=== PATIENT | male | born 1950 | race Caucasian/White ===

== ENCOUNTER 2018-10-22 23:52 | Inpatient (IN) ==
--- NOTE | 2018-10-23 00:16 | Emergency Department Note ---
History of Present Illness General Chief complaint: Leg Injury/Pain Stated complaint: LFT LEG WENT NUMB,ANXIETY LEVEL UP,STINT IN LEG Source: patient Mode of arrival: ambulatory Limitations: no limitations History of Present Illness Maximum Pain Intensity: 5 This patient is a 67-year-old male who presents the emergency department complaining of left calf pain and numbness of the foot. The patient states that he had a stent placed in the left leg 1 month ago. He was placed on Plavix for 1 month and finished this 3 to 4 days ago. Patient states that approximately 3 hours prior to arrival, he was walking upstairs and felt a cramp in his left calf. He states that his foot then went numb and he is now having [id number] in the foot. He states that it became cold to touch. He tried to take a hot bath but states this did not help. Patient states he is very anxious regarding his symptoms. He rates his current discomfort a 5/10. Patient is a diabetic. Home Medications Home Medications Medication Instructions Recorded Confirmed Type enalapril maleate 10 mg PO DAILY 09/15/18 10/23/18 History gemfibrozil 600 mg PO BID 09/15/18 10/23/18 History glimepiride 4 mg PO BID 09/15/18 10/23/18 History pioglitazone-metformin 1 tab PO BID 10/23/18 10/23/18 History Allergies Allergy/AdvReac Type Severity Reaction Status Date / Time cat dander Allergy Unknown Verified 10/23/18 02:38 Past Med/Surg History Medical History Diabetes mellitus (Acute) Surgical History History of cataract extraction (Acute) History of eye surgery (Acute) retina History of left knee surgery (Acute) Social History Preferred Language: Chinese Communication Ability: Effective Needleworker Required: No Beliefs That Will Affect Care: None Current Living Situation: Alone Other Information That Helps Us Care for You: No Feels Safe at Home: Yes Safety Concerns: Feels Safe At This Time Smoking Status: Current every day smoker Tobacco Type: cigarettes ; Do You Dip or Chew Tobacco: No ; Second Hand Exposure: No ; Tobacco Cessation Education Requested by Patient: No Hx Alcohol Use: No Hx Substance Use: No Review of Systems A total of 10 systems reviewed and were otherwise negative Physical Exam Vital Signs Vital Signs - 24 hr 10/22/18 23:55 10/23/18 01:27 10/23/18 02:23 Temperature 36.7 C Temperature Source Oral Sepsis Recent Fever Within 48 Hours No Sepsis New/Unexplained Change in Mental Status No Sepsis Action Taken by Nursing No Action Required Pulse Rate 106 H Pulse Rate [Right Finger] 85 86 Respiratory Rate 16 18 18 Respiratory Effort / Characteristics Non-Labored Spontaneous Respiratory Depth Normal Respiratory Pattern Regular Blood Pressure 220/107 H Blood Pressure [Right Arm] 178/95 H 177/99 H Blood Pressure Mean 144 Blood Pressure Mean [Right Arm] 122 125 Blood Pressure Position [Right Arm] Semi-fowlers Pulse Oximetry 97 96 97 Oxygen Delivery Method Room Air Room Air Room Air VITALS: Vitals are noted on the nurse's note and reviewed by myself. GENERAL: This is a 67-year-old male, anxious appearing, well-developed well- nourished. SKIN: The left foot appears pale with poor capillary refill. EYES: Pupils equal round and reactive to light and accommodation. MOUTH: Mucous membranes moist. NECK: Supple without nuchal rigidity. No lymphadenopathy. HEART: Regular rate and rhythm without murmurs gallops or rubs. LUNGS: Clear to auscultation bilaterally without wheezes, rales or rhonchi. ABDOMEN: Soft, nontender to palpation. Well-healed surgical incision to the right groin. EXTREMITIES: Left foot is pale and cold compared to the right foot. No tenderness or edema of the left calf. Dorsalis pedis pulse not palpable. NEURO: Patient was alert and oriented to person place and time. Patient has normal sensation to light and sharp touch proximal to the left ankle. Sensation is decreased over the left foot and patient unable to delineate light from sharp touch. PSYCH: Patient is very anxious. Appropriate affect. Course Reevaluation(s) Reevaluation #1: Ultrasound findings were discussed with the patient. He is agreeable to admission. Consultations Consultation #1: Dr. Ambriz - vascular surgery Dr. Ambriz recommended starting the patient on heparin and keeping him n.p.o. He requested that the hospitalist be consulted for admission. Consultation #2: Dr. Atkins - [facility] hospitalist Administered Medications Heparin Sodium/Dextrose (Heparin Sodium/Dextrose) 25,000 units in 500 mls @ 33 mls/hr IV .[id number] [place]; Protocol Stop: 11/22/18 02:14 Last Admin: 10/23/18 02:19 Dose: 1,650 units/hr, 33 mls/hr Documented by: [id number] Cosigned by: [id number] Discontinued Medications Heparin Sodium (Porcine) (Heparin Iv Bolus) Confirm Administered Dose 10,000 units .ROUTE .STK-MED ONE Stop: 10/23/18 02:16 Last Admin: 10/23/18 02:20 Dose: 5,000 units Documented by: [id number] Cosigned by: [id number] Heparin Sodium/Dextrose () 1 ea IV NOW STA; Protocol Stop: 10/23/18 02:10 Last Admin: 10/23/18 02:21 Dose: Not Given Documented by: [id number] Medical Decision Making Differential Diagnosis Differential diagnosis includes arterial occlusion, stent occlusion, DVT, among others. Medical Records Attestation: I reviewed the patient's medical records. Home Medications Current Medication List: was personally reviewed by me Laboratory Data Attestation: I reviewed the patient's lab results. Result diagrams: 10/23/18 00:19 10/23/18 00:19 Lab Results 10/23/18 10/23/18 10/23/18 Range/Units 00:19 00:19 00:19 WBC 7.50 (4.8-10.8) K/uL RBC 4.47 L (4.7-6.1) M/uL Hgb 13.5 L (14.0-18.0) g/dL Hct 38.3 L (42-52) % MCV 85.7 (80-100) fL MCH 30.2 (25-34) pg MCHC 35.2 (32-36) g/dL RDW Std Deviation 40.4 (36.4-46.3) fL RDW Coeff of Josh 12.9 (11.5-14.5) % Plt Count 155 (130-400) K/uL MPV 10.3 (7.4-10.4) fL Immature Gran % (Auto) 0.4 % Neut % (Auto) 62.8 % Lymph % (Auto) 27.2 % Stoddard % (Auto) 6.3 % Eos % (Auto) 2.9 % Baso % (Auto) 0.4 % Immature Gran # (Auto) 0.03 H (0.00-0.02) K/uL Neut # (Auto) 4.71 (1.4-6.5) K/uL Lymph # (Auto) 2.04 (1.2-3.4) K/uL Stoddard # (Auto) 0.47 (0.11-0.59) K/uL Eos # (Auto) 0.22 (0-0.5) K/uL Baso # (Auto) 0.03 (0-0.2) K/uL PT 10.3 (9.0-12.0) Seconds INR 1.0 (0.9-1.1) APTT 24.0 (21.0-31.0) Seconds PTT Ratio 0.9 Sodium 142 (136-145) mmol/L Potassium 3.7 (3.5-5.1) mmol/L Chloride 107 (98-107) mmol/L Carbon Dioxide 23 (21-32) mmol/L Anion Gap 12.0 H (3-11) BUN 24 H (7-18) mg/dl Creatinine 1.35 (0.6-1.4) mg/dl Est Cr Clr Drug Dosing 70.3 ml/min Est GFR ( Amer) 63.0 Est GFR (Non-Af Amer) 54.3 BUN/Creatinine Ratio 18.1 (10-20) Glucose 149 H (70-99) mg/dl Calcium 8.4 L (8.5-10.1) mg/dl Total Bilirubin 0.3 (0.2-1) mg/dl AST 20 (15-37) U/L ALT 32 (12-78) U/L Alkaline Phosphatase 66 (45-117) U/L Total Protein 7.4 (6.4-8.2) gm/dl Albumin 3.6 (3.4-5.0) gm/dl Globulin 3.8 (2.5-4.0) gm/dl Albumin/Globulin Ratio 0.9 (0.9-2) Imaging Data Attestation: I personally reviewed and interpreted this imaging study as follows: Radiologist's Impression: US ARTERIAL LEFT LOWER EXTREMITY: Extensive left lower extremity arterial atherosclerosis. Patent left common femoral artery and left profunda artery with triphasic waveforms. Patent left superficial femoral artery with biphasic and monophasic waveforms. High-grade stenosis/near occlusion of the popliteal artery with minimal monobasic flow. Peak systolic velocity of 9 cm/s. Occlusion or near occlusion of the calf vessels and dorsalis pedis artery. Radiologist: Jamison Walker M.D. Blood Pressure Blood Pressure Findings: Elevated blood pressure Blood Pressure Disposition: further management by hospitalist MDM Narrative The patient is a 67-year-old male who presents today complaining of numbness/tingling/coldness of the left foot. Patient is status post stent placement of the left popliteal and superficial femoral arteries 1 month ago. Patient completed a 1 month course of Plavix 3 to 4 days ago. On initial examination, patient's foot was cold and pale in color and I was unable to find a dorsalis pedis or posterior tibial pulse. Patient was immediately sent for arterial ultrasound of the leg, which did show high-grade stenosis/near occlusion of the popliteal artery as well as occlusion or near occlusion of the calf vessels and dorsalis pedis artery. Patient was started on a heparin drip. Vascular surgery was consulted and recommended admission to the medicine service. Patient will be kept n.p.o. The [facility] hospitalist service was consulted to further evaluate the patient. The patient was independently evaluated by Dr. Holm, who agreed with my assessment and treatment plan. Impression & Plan Arterial occlusion, lower extremity Critical Care Time Critical Care Time: Yes Total Critical Care Time: 45 I have personally spent greater than 45 minutes of critical care time in the di rect management of this patient. This includes bedside care, interpretation of diagnostic studies, and testing, discussion with consultants, patient, and family members, and other required patient management activities. This 45 minutes is in excess of all separately billable procedures. Discharge Plan Visit Data *Final* Discharge Date/Time: 10/23/18 04:18 Chief Complaint: Leg Injury/Pain Stated Complaint: LFT LEG WENT NUMB,ANXIETY LEVEL UP,STINT IN LEG ED Provider: Marcy Holm ED Midlevel Provider: Saba Buchanan Discharge Problem: Arterial occlusion, lower extremity Patient Disposition: Admitted As Inpatient Discharge Instructions Interventions: ED Discharge Assessment Last Done: 10/23/18 04:18
[2018-10-23 00:29] LABS: Basophils # (auto) 0.03 K/uL (0-0.2); Basophils % (auto) 0.4 %; Eosinophils # (auto) 0.22 K/uL (0-0.5); Eosinophils % (auto) 2.9 %; Hematocrit (blood only) 38.3 % (42-52); Hemoglobin 13.5 g/dL (14.0-18.0); Immature Granulocytes # (auto) 0.03 K/uL (0.00-0.02); Immature Granulocytes % (auto) 0.4 %; Lymphocytes # (auto) 2.04 K/uL (1.2-3.4); Lymphocytes % (auto) 27.2 %; Mean Corpuscular Hemoglobin 30.2 pg (25-34); Mean Corpuscular Hgb Conc 35.2 g/dL (32-36); Mean Corpuscular Volume 85.7 fL (80-100); Mean Platelet Volume 10.3 fL (7.4-10.4); Monocytes # (auto) 0.47 K/uL (0.11-0.59); Monocytes % (auto) 6.3 %; Neutrophils # (auto) 4.71 K/uL (1.4-6.5); Neutrophils % (auto) 62.8 %; Platelet Count 155 K/uL (130-400); RDW Coefficient of Variation 12.9 % (11.5-14.5); RDW Standard Deviation 40.4 fL (36.4-46.3); Red Blood Count 4.47 M/uL (4.7-6.1)
[2018-10-23 00:43] LABS: Partial Thromboplastin Ratio 0.9; Prothrombin Time 10.3 Seconds (9.0-12.0)
[2018-10-23 00:46] LABS: Albumin Level 3.6 gm/dl (3.4-5.0); BUN Creatinine Ratio 18.1 (10-20); Calcium 8.4 mg/dl (8.5-10.1); Creatinine Clr Calc Pharmacy 70.3 ml/min; Est GFR (Non-African American) 54.3; Potassium 3.7 mmol/L (3.5-5.1)
[2018-10-23 00:49] LABS: Albumin Globulin Ratio 0.9 (0.9-2); Bilirubin,Total 0.3 mg/dl (0.2-1); Globulin 3.8 gm/dl (2.5-4.0); Total Protein 7.4 gm/dl (6.4-8.2)
[2018-10-23] MEDS ORDERED: HEPARIN SOD (PORCINE) 1000 UNIT/ML 10 ML VIAL ONE ×2 (02:15→12:05)
[2018-10-23] MEDS ORDERED: HEPARIN SODIUM/DEXTROSE 25,000 UNITS/500 ML BAG IV SCH (02:15)
--- NOTE | 2018-10-23 02:54 | Emergency Department Note ---
ED Visit Note This is a 67-year-old male patient presents to the emergency department with severe pain in his left leg and a cold foot. The patient has a history of previous stent placement in his popliteal. He had sudden onset of decreased blood flow to that left foot. On physical exam, the foot is cold to touch. Ultrasound shows absent flow. I saw the patient in conjunction with Saba Buchanan PA-C. She spoke with Dr. Ambriz and the patient will be admitted to the [facility] service. .
--- NOTE | 2018-10-23 03:23 | History & Physical Report ---
Date of Service October 23, 2018 Assessment & Plan (1) Atherosclerosis of artery of left lower extremity: 67-year-old male with past medical history of diabetes and extensive smoking history presents with left calf pain and left foot numbness/tingling/coldness starting this evening. On 09/18/2018 patient had left popliteal and superficial femoral artery stents put in by Dr. Ambriz. Arterial occlusion left lower extremity Patient had stents put in and left popliteal and superficial femoral arteries on 09/18/[address] Ambriz Patient reports taking Plavix for 30 days after procedure and finished a course 4 days ago Ultrasound arterial: Extensive left lower extremity arterial atherosclerosis, high-grade stenosis/near occlusion of popliteal artery and near occlusion of calf vessels and dorsalis pedis artery Started on heparin drip Vascular surgery: Dr. Ambriz consulted N.p.o. for possible procedure, on IV fluids NS 100 cc/h Hypertension continue home enalapril Diabetes mellitus Hold home gemfibrozil glimepiride and pioglitazonemetformin PSG per unit protocol and sliding scale insulin Tobacco dependence Patient has been smoking for the past 50 years initially 2 packs/day and now for the last few years half pack per day Highly encouraged to quit smoking given extensive vascular disease Outpatient education and intervention recommended Code: Full DVT prophylaxis: Heparin GTT Disposition: MedSurg with telemetry (2) DM (diabetes mellitus): (3) HTN (hypertension): History of Present Illness Chief Complaint: Left calf pain and left foot numbness/tingling/cold Primary Ca re Provider: Red Fraire MD 67-year-old male with past medical history of diabetes and extensive smoking history presents with left calf pain and left foot numbness/tingling/coldness starting this evening. On 09/18/2018 patient had left popliteal and superficial femoral artery stents put in by Dr. Ambriz. Patient was on Plavix for a month which he finished on , 4 days ago. This evening he went upstairs after which he felt a cramp in his left calf then his left foot felt numb followed by some tingling and coldness. He went to the shower and put some hot water on his foot but it did not recover and he came to the emergency room thinking he had a stroke. In the ED are arterial ultrasound found extensive left lower extremity arterial atherosclerosis and high-grade stenosis/near occlusion of L popliteal artery, calf vessels and dorsalis pedis. He was started on heparin drip. Social history: Smoking since age 16 initially 2 packs/day but over the last few years half a pack per day. Allergies Allergy/AdvReac Type Severity Reaction Status Date / Time cat dander Allergy Unknown Verified 10/23/18 02:38 Home Medications Home Medications Medication Instructions Recorded Confirmed Type enalapril maleate 10 mg PO DAILY 09/15/18 10/23/18 History gemfibrozil 600 mg PO BID 09/15/18 10/23/18 History glimepiride 4 mg PO BID 09/15/18 10/23/18 History pioglitazone-metformin 1 tab PO BID 10/23/18 10/23/18 History Past Med/Surg History Medical History Diabetes mellitus (Acute) Surgical History History of cataract extraction (Acute) History of eye surgery (Acute) retina History of left knee surgery (Acute) Social History Preferred Language: Mauritanian Communication Ability: Effective Observer Electrical Prospecting Required: No Beliefs That Will Affect Care: None Current Living Situation: Alone Other Information That Helps Us Care for You: No Feels Safe at Home: Yes Safety Concerns: Feels Safe At This Time Smoking Status: Current every day smoker Tobacco Type: cigarettes ; Do You Dip or Chew Tobacco: No ; Second Hand Exposure: No ; Tobacco Cessation Education Requested by Patient: No Hx Alcohol Use: No Hx Substance Use: No Review of Systems Review of Systems: As per HPI Physical Exam Physical Exam: General: In NAD Neuro: A&O x 4 Pulm: CTAB equal breath sounds bilaterally CV: RRR, no m/r/g Abdomen:+BS, no TTP in all quadrants, non-distended Left LE: no LE edema, no calf TTP, posterior tibial and DP pulses 1+, L lower leg and L foot cold to touch compared to RLE Results & Data Vital Signs (Past 12 Hours) Vital Signs Temp Pulse Pulse Resp BP BP Pulse Ox 10/23/18 02:23 86 18 177/99 H 97 10/23/18 01:27 85 18 178/95 H 96 10/22/18 23:55 36.7 C 106 H 16 220/107 H 97 Laboratory Results Abnormal lab results 10/23/18 10/23/18 Range/Units 00:19 00:19 RBC 4.47 L (4.7-6.1) M/uL Hgb 13.5 L (14.0-18.0) g/dL Hct 38.3 L (42-52) % Immature Gran # (Auto) 0.03 H (0.00-0.02) K/uL Anion Gap 12.0 H (3-11) BUN 24 H (7-18) mg/dl Glucose 149 H (70-99) mg/dl Calcium 8.4 L (8.5-10.1) mg/dl Medications Administered Current Inpatient Medications Heparin Sodium/Dextrose (Heparin Sodium/Dextrose) 25,000 units in 500 mls @ 0.02 mls/hr IV .Q24H [facility]; Protocol Stop: 11/22/18 02:14 Last Admin: 10/23/18 02:19 Dose: 1,650 units/hr, 33 mls/hr Documented by: Code Status & VTE Plan Code Status Full VTE Prophylaxis Plan VTE Prophylaxis will be ordered: Yes Supervising Physician Co-Signing Physician Notes Attending addendum: I have physically seen this patient, have supervised the medical residents activities, and agree with the H&P unless as otherwise noted. Assessment and Plan: Severe PAD/recent stents left popliteal and superficial femoral arteries on 09/18/2018- Arterial Doppler suggests, along with patient's symptoms, at least partial reocclusion. Symptoms are improving somewhat on heparin infusion. Vascular surgeon Dr. Ambriz has been contacted by ED and is aware and will see the patient in a.m. Discussed with patient the absolute need for tobacco cessation. Restarting the patient's Plavix can be determined by vascular. Remainder of orders and notations as noted. PG Care Time/CCT Total # of Minutes Spent Total Time Spent with Patient: Total time spent is greater than 50% in coordination of care (as documented) at patient's floor/unit and/or counseling patient: Resident Activity Tracking Resident Involvement: Resident Care Provided Care Provided: Adult Hospital Medicine
[2018-10-23] MEDS ORDERED: ACETAMINOPHEN 325 MG TAB PO PRN (04:52)
[2018-10-23] MEDS ORDERED: SODIUM CHLORIDE 0.9% 1000ML 1,000 ML IV SCH ×2 (04:52→06:10)
[2018-10-23] MEDS ORDERED: GLUCOSE 10 TABS/TUBE PO PRN (05:00)
[2018-10-23] MEDS ORDERED: CARBOHYDRATES FOR HYPOGLYCEMIA PO PRN (05:00)
[2018-10-23] MEDS ORDERED: GLUCOSE 40% GEL 15 GM TUBE PO PRN (05:00)
[2018-10-23] MEDS ORDERED: DEXTROSE 50% 50 ML SYRINGE IV PRN (05:00)
[2018-10-23] MEDS ORDERED: GLUCAGON FOR INJ 1 MG VIAL SQ PRN (05:00)
[2018-10-23] MEDS ORDERED: HydrALAZINE HCL 20 MG/ML VIAL IV ONE (05:54)
[2018-10-23] MEDS ORDERED: CEFAZOLIN 2000MG 2,000 MG/15 ML SYR IV SCH (06:00)
--- NOTE | 2018-10-23 07:12 | Ultrasound Report ---
US arterial duplex LE LT CLINICAL HISTORY: 67 years-old Male presenting with recent stent, foot cold, numb. TECHNIQUE: Real-time grayscale and color and spectral Doppler ultrasound imaging of the left lower ex tremity arteries was performed. Measurements calculated based on NASCET criteria. COMPARISON: 09/15/2018. FINDINGS: LEFT: Common femoral artery: Calcified atherosclerotic plaque. Triphasic waveforms. Peak systolic velocity (PSV) 114 cm/s. Deep femoral artery: Patent. Triphasic waveforms. PSV 178 cm/s. Superficial femoral artery: No demonstrable flow within the distal portion with patent proximal and m id portions. Biphasic to monophasic in the proximal to mid portions. PSV 46 cm/s proximally, PSV 56 c m/s in the midportion, and 37 cm/s immediately upstream to the apparent occlusion. Popliteal artery: Largely occluded though trace flow is suggested throughout. Monophasic waveforms ar e detectable. PSV 9 cm/s. Anterior tibial artery: Occluded proximally with trace flow distally. Posterior tibial artery: Occluded the trace flow may be present at the level of the ankle. Peroneal artery: Occluded. Dorsalis pedis: Occluded. ANKLE/BRACHIAL INDEX (CHRISTOPHER): Brachial: Right: 192 mmHg. Left: 186 mmHg. Ankle (posterior tibial): Right: 192 mmHg. Left: 0 mmHg. Ankle (dorsalis pedis): Right: 173 mmHg. Left: 0 mmHg. Ankle/brachial index: Right: 1.0, Left: 0.0. Reference ranges: Normal Ankle/Brachial Index (CHRISTOPHER) 1.0-1.4; 0.91-0.99 borderline; < or = 0.9 abnormal (0.7-0.89 mild, 0.51-0.69 moderate, < or = 0.5 severe peripheral arterial disease). Normal Toe/Brachial Index (TBI) > or = 0.6; < 0.6 abnormal (0.34-0.59 mild, 0.12-0.34 moderate, < or = 0.11 severe peripheral arterial disease). IMPRESSION: 1. Occlusion of the distal superficial femoral artery at the site of prior hemodynamically significa nt stenosis. Apparent occlusion or near occlusion of the popliteal artery and lower leg arteries. The report will be called/faxed according to standard departmental protocol for a critical finding. Electronically signed by: Ash Valdivia M.D. 10/23/2018 7:10 AM
[2018-10-23] MEDS ORDERED: HydrALAZINE HCL 20 MG/ML VIAL IV PRN (08:00)
[2018-10-23] MEDS: NICOTINE 14 MG/24 HR PATCH TD SCH (08:29)
[2018-10-23] MEDS: ENALAPRIL MALEATE 10 MG TAB PO SCH (08:29)
[2018-10-23] MEDS: INSULIN ASPART 100 UNITS/ML 3 ML PEN SC SCH ×4 (08:31→22:13)
[2018-10-23 08:38] LABS: Partial Thromboplastin Ratio 2.2
[2018-10-23 08:40] LABS: Partial Thromboplastin Time 59.2 Seconds (21.0-31.0)
--- NOTE | 2018-10-23 09:13 | Consultation ---
Date of Consultation October 23, 2018 Assessment & Plan (1) Arterial occlusion, lower extremity: Pt discussed with Dr Ambriz, recommends LLE angio with intervention this morning. Discussed possible options with pt, including thrombectomy/thrombolysis if needed, answered questions. Pt agreeable. Patient was seen, examined, and chart reviewed. Agree with exam and treatment plan of the Vascular PA. Patient for arterography with possible intervention. I have discussed the risks options and benefits of the procedure with the patient. The patient understands the risks options and benefits and agrees to the procedure. Present on Admission?: Yes History of Present Illness Reason for Consultation: LLE ischemia Attending Physician: Wendie Lassiter MD History of Present Illness 67 yo m with hx of DMII, HTN, and PAD, admitted with acute arterial occlusion, seen in consultation for same. 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 Pt states had been doing well until yesterday evening, when he devloped a "cramp" in L calf and numbness L foot. Had some pain as well. Soaked in warm water without relief, so pt came to [facility] ED. States difficulty walking as well. Pt started on heparin drip and states his pain in L foot has resolved, but still feels cool and somewhat numb. Denies NIEVES, fever, chills, chest pain, SOB, abd pain, N/V, other complaints. Arterial US demonstrates occlusion of LLE SFA and pop stents, as well as c omplete occlusions of all 3 runoff vessels. Allergies Allergy/AdvReac Type Severity Reaction Status Date / Time cat dander Allergy Unknown Verified 10/23/18 02:38 Home Medications Home Medications Medication Instructions Recorded Confirmed Type enalapril maleate 10 mg PO DAILY 09/15/18 10/23/18 History gemfibrozil 600 mg PO BID 09/15/18 10/23/18 History glimepiride 4 mg PO BID 09/15/18 10/23/18 History pioglitazone-metformin 1 tab PO BID 10/23/18 10/23/18 History Patient History Medical History Diabetes mellitus (Acute) Surgical History History of cataract extraction (Acute) History of eye surgery (Acute) retina History of left knee surgery (Acute) Social History Preferred Language: Polish Communication Ability: Effective Glued Wood Tester Required: No Beliefs That Will Affect Care: None Current Living Situation: Alone Other Information That Helps Us Care for You: No Feels Safe at Home: Yes Safety Concerns: Feels Safe At This Time Smoking Status: Current every day smoker Tobacco Type: cigarettes ; Do You Dip or Chew Tobacco: No ; Second Hand Exposure: No ; Tobacco Cessation Education Requested by Patient: No Hx Alcohol Use: No Hx Substance Use: No Review of Systems Review of Systems: All systems reviewed & are unremarkable except as noted in HPI & below Physical Exam Constitutional: WD/WN, vitals as above well developed, well nourished, + obese, healthy appearing, well groomed, cooperative and comfortable; not in distress and not combative Eyes: PERRL, conjunctivae normal, anicteric sclerae EOM intact bilaterally ENMT: external ear and nose normal, oropharynx normal Ears: no hearing impairment Nose: no nasal discharge Neck: trachea midline, no thyromegaly neck nontender Respiratory: able to speak in complete sentences; no cough Auscultation: lungs clear to auscultation bilaterally, + diminished lung sounds and + wheezes (occasional); no rales and no rhonchi Cardiovascular: RRR, no murmur, no edema Rate/Rhythm: regular rate and regular rhythm Heart Sounds: no gallop Vessels: femoral pulses present, posterior tibial pulses present (RLE only, LLE faint doppler signal), dorsalis pedis pulses present (RLE only, LLE no signal), brachial pulses present and radial pulses present; no carotid bruit, no femoral bruit and + abnormal peripheral pulses Extremities: + abnormal capillary refill and no edema Chest (Breasts): Chest: normal inspection of chest Gastrointestinal (Abdomen): normal bowel sounds, soft, nontender, no hepatosplenomegaly Inspection/Auscultation: abdomen normal to inspection and normal bowel sounds; abdomen not distended Percussion/Palpation: abdomen soft; abdomen nontender, no guarding and abdomen not rigid Musculoskeletal: Head/Neck/Chest: normocephalic and head atraumatic Extremities: + abnormal strength (weak toe flexion) and + cyanosis (L foot pale blue); no clubbing Skin: no rashes, warm and dry normal turgor, + mottling (l foot) and + pallor (L foot); no rashes, no ulcers, no dry skin, no erythema, no eschar and no excoriations Neurologic: moves all extremities and awake; no focal motor deficits Speech / Cognition: no expressive aphasia and no receptive aphasia Motor/Sensory: + sensory deficit (L foot numb); no tremor Cranial Nerves: EOM intact bilaterally and normal facial strength Psychiatric: Orientation: alert, oriented x 3 and cooperative Apperance: appropriately dressed and appropriately groomed Affect: + depressed affect and + anxious affect Thought Process: goal directed thought process, linear/logical thought process and clear/coherent thought process Cognition: recent memory grossly intact, remote memory grossly intact, attention grossly intact and language grossly intact Estimated Intelligence: average estimated intelligence Results & Data Vital Signs (Past 12 Hours) Vital Signs Temp Pulse Pulse Resp BP BP BP 10/23/18 08:00 84 10/23/18 07:11 36.4 C L 84 20 191/96 H 202/107 H 10/23/18 05:55 84 10/23/18 04:52 10/23/18 04:18 84 18 177/103 H 10/23/18 04:15 36.5 C 86 20 198/89 H 10/23/18 02:23 86 18 177/99 H 10/23/18 01:27 85 18 178/95 H 10/22/18 23:55 36.7 C 106 H 16 220/107 H Pulse Ox Pulse Ox 10/23/18 08:00 10/23/18 07:11 96 10/23/18 05:55 10/23/18 04:52 95 10/23/18 04:18 97 10/23/18 04:15 95 10/23/18 02:23 97 10/23/18 01:27 96 10/22/18 23:55 97
[2018-10-23] MEDS ORDERED: HEPARIN SOD (PORCINE) 5,000 UNITS/ML VIAL ONE (12:05)
[2018-10-23] MEDS ORDERED: fentaNYL citrate 100 MCG/2 ML VIAL ONE ×2 (12:06→12:46)
[2018-10-23] MEDS ORDERED: ATROPINE SULFATE 0.1 MG/ML 10ML SYR IV ONE (12:06)
[2018-10-23] MEDS ORDERED: MIDAZOLAM HCL 1 MG/ML 2ML VIAL ONE ×2 (12:06→12:46)
--- NOTE | 2018-10-23 12:09 | Pre Anesthesia Assessment ---
Date of Service October 23, 2018 Pre Sedation Assessment Vital Signs Temp Pulse Pulse Resp BP BP BP 10/23/18 11:37 36.6 C 93 H 18 160/100 H 10/23/18 09:43 84 188/96 H 10/23/18 08:00 84 10/23/18 07:11 36.4 C L 84 20 191/96 H 202/107 H 10/23/18 05:55 84 10/23/18 04:52 10/23/18 04:18 84 18 177/103 H 10/23/18 04:15 36.5 C 86 20 198/89 H 10/23/18 02:23 86 18 177/99 H 10/23/18 01:27 85 18 178/95 H 10/22/18 23:55 36.7 C 106 H 16 220/107 H Pulse Ox Pulse Ox 10/23/18 11:37 96 10/23/18 09:43 10/23/18 08:00 10/23/18 07:11 96 10/23/18 05:55 10/23/18 04:52 95 10/23/18 04:18 97 10/23/18 04:15 95 10/23/18 02:23 97 10/23/18 01:27 96 10/22/18 23:55 97 Cardiovascular RRR, no murmur, no edema Respiratory normal respiratory effort, lungs clear to auscultation Pre-Sedation Airway Assessment Smoking Status: Current every day smoker Hx Sleep Apnea: No Short, Thick Neck: No Thyromental Distance: > or= 3.5 Finger Breadths Oral Cavity: + Dental Abnormalities Mallampati Class: I ASA: ASA3 NPO Status Date of Last Intake of Fluids: 10/22/18 Time of Last Intake of Fluids: 19:00 Date of Last Intake of Solid Food: 10/22/18 Time of Last Intake of Solid Foods: 19:00 Procedure Planning Contraindications for Sedation: none Current Medications Reviewed: Yes Notes The planned sedation has been discussed with the patient. Informed Consent was obtained. I have identified the patient, determined the appropriateness of sedation and have assessed the patient immediately prior to the procedure. All medicine(s) and interventions are by my order.
--- NOTE | 2018-10-23 12:19 | Hospitalist Progress Note ---
Date of Service October 23, 2018 Assessment & Plan (1) Atherosclerosis of artery of left lower extremity: - Presented with left calf pain; s/p LLE angio with RESIDENTIAL SUPPORT WORKER/stent of SFA and popliteal 1 month ago, d/c'ed Plavix 4-5 days ago. - Arterial duplex showed extensive LLE arterial atherosclerosis, near occlusion of popliteal artery and calf vessels/dorsalis pedis artery. - Started Heparin drip at admission. - Vascular surgery consulted, plan for intervention this afternoon. - Holding home Gemfibrozil. (2) DM (diabetes mellitus): - No recent documented A1C, will order. - SSI coverage; holding home meds as inpatient. (3) HTN (hypertension): - Continue home Enalapril 10 mg daily as prescribed. - BP has been very uncontrolled, SBP 170-180's; ordered Hydralazine IV prn. - Will need increase in ACEI dose vs. addition of another agent if BP remains elevated. (4) Tobacco abuse: - Nicotine patch ordered. (5) DVT prophylaxis: - Heparin drip. Dispo: Upgraded to ICU post op; vascular consulted, status post procedure this afternoon. Supervising Physician Co-Signing Physician Notes PA Supervision Note: I did not personally see or examine the patient today, but I verified all amos points of ASTRID Quiorga's assessment and plan with the following exceptions/additions: None Subjective Pt. is doing well overall. He states pain in left calf now resolving. Pulses in LLE not detected well. Does have burning with urination -- will order u/a for evaluation. Plan for vascular intervention with Dr. Ambriz this afternoon. Review of Systems Review of Systems: All systems reviewed & are unremarkable except as noted in HPI & below Constitutional: no fever, no chills, no fatigue and no weakness Respiratory: no cough, no dyspnea and no dyspnea on exertion Cardiovascular: no chest pain, no palpitations and no edema Gastrointestinal: no abdominal pain, no nausea, no vomiting and no constipation Genitourinary: + dysuria; no difficulty urinating Musculoskeletal: no back pain and no joint pain Integumentary: no non-healing lesions Allergy / Immunological: no rash Physical Exam Physical Exam: General: Resting comfortably HEENT: NC/AT; PERRLA with EOMI; [place] conjunctiva, MMM. No erythema of posterior pharynx Neck: Supple and nontender Cardiac: RRR Lungs: CTA bilaterally Abdomen: Bowel normoactive X 4; Nontender to palpation Extremities: Warm. No edema present. Normal RLE pulses on exam; no pulse palpated over LLE dorsalis pedis and posterior tibial area. Neuro: No focal weakness Skin: No rash Results & Data Vital Signs (Past 12 Hours) Vital Signs Temp Pulse Pulse Resp BP BP BP 10/23/18 11:37 36.6 C 93 H 18 160/100 H 10/23/18 09:43 84 188/96 H 10/23/18 08:00 84 10/23/18 07:11 36.4 C L 84 20 191/96 H 202/107 H 10/23/18 05:55 84 10/23/18 04:52 10/23/18 04:18 84 18 177/103 H 10/23/18 04:15 36.5 C 86 20 198/89 H 10/23/18 02:23 86 18 177/99 H 10/23/18 01:27 85 18 178/95 H Pulse Ox Pulse Ox 10/23/18 11:37 96 10/23/18 09:43 10/23/18 08:00 10/23/18 07:11 96 10/23/18 05:55 10/23/18 04:52 95 10/23/18 04:18 97 10/23/18 04:15 95 10/23/18 02:23 97 10/23/18 01:27 96 Laboratory Results 10/23/18 10/23/18 10/23/18 Range/Units 07:58 07:20 00:19 WBC (4.8-10.8) K/uL RBC (4.7-6.1) M/uL Hgb (14.0-18.0) g/dL Hct (42-52) % MCV (80-100) fL MCH (25-34) pg MCHC (32-36) g/dL RDW Std Deviation (36.4-46.3) fL RDW Coeff of Josh (11.5-14.5) % Plt Count (130-400) K/uL MPV (7.4-10.4) fL Immature Gran % (Auto) % Neut % (Auto) % Lymph % (Auto) % [place] % (Auto) % Eos % (Auto) % Baso % (Auto) % Immature Gran # (Auto) (0.00-0.02) K/uL Neut # (Auto) (1.4-6.5) K/uL Lymph # (Auto) (1.2-3.4) K/uL [place] # (Auto) (0.11-0.59) K/uL Eos # (Auto) (0-0.5) K/uL Baso # (Auto) (0-0.2) K/uL PT (9.0-12.0) Seconds INR (0.9-1.1) APTT 59.2 H* (21.0-31.0) Seconds PTT Ratio 2.2 Sodium 142 (136-145) mmol/L Potassium 3.7 (3.5-5.1) mmol/L Chloride 107 (98-107) mmol/L Carbon Dioxide 23 (21-32) mmol/L Anion Gap 12.0 H (3-11) BUN 24 H (7-18) mg/dl Creatinine 1.35 (0.6-1.4) mg/dl Est Cr Clr Drug Dosing 70.3 ml/min Est GFR ( Amer) 63.0 Est GFR (Non-Af Amer) 54.3 BUN/Creatinine Ratio 18.1 (10-20) Glucose 149 H (70-99) mg/dl POC Glucose 170 H (70-99) Calcium 8.4 L (8.5-10.1) mg/dl Total Bilirubin 0.3 (0.2-1) mg/dl AST 20 (15-37) U/L ALT 32 (12-78) U/L Alkaline Phosphatase 66 (45-117) U/L Total Protein 7.4 (6.4-8.2) gm/dl Albumin 3.6 (3.4-5.0) gm/dl Globulin 3.8 (2.5-4.0) gm/dl Albumin/Globulin Ratio 0.9 (0.9-2) 10/23/18 10/23/18 Range/Units 00:19 00:19 WBC 7.50 (4.8-10.8) K/uL RBC 4.47 L (4.7-6.1) M/uL Hgb 13.5 L (14.0-18.0) g/dL Hct 38.3 L (42-52) % MCV 85.7 (80-100) fL MCH 30.2 (25-34) pg MCHC 35.2 (32-36) g/dL RDW Std Deviation 40.4 (36.4-46.3) fL RDW Coeff of Josh 12.9 (11.5-14.5) % Plt Count 155 (130-400) K/uL MPV 10.3 (7.4-10.4) fL Immature Gran % (Auto) 0.4 % Neut % (Auto) 62.8 % Lymph % (Auto) 27.2 % [place] % (Auto) 6.3 % Eos % (Auto) 2.9 % Baso % (Auto) 0.4 % Immature Gran # (Auto) 0.03 H (0.00-0.02) K/uL Neut # (Auto) 4.71 (1.4-6.5) K/uL Lymph # (Auto) 2.04 (1.2-3.4) K/uL [place] # (Auto) 0.47 (0.11-0.59) K/uL Eos # (Auto) 0.22 (0-0.5) K/uL Baso # (Auto) 0.03 (0-0.2) K/uL PT 10.3 (9.0-12.0) Seconds INR 1.0 (0.9-1.1) APTT 24.0 (21.0-31.0) Seconds PTT Ratio 0.9 Sodium (136-145) mmol/L Potassium (3.5-5.1) mmol/L Chloride (98-107) mmol/L Carbon Dioxide (21-32) mmol/L Anion Gap (3-11) BUN (7-18) mg/dl Creatinine (0.6-1.4) mg/dl Est Cr Clr Drug Dosing ml/min Est GFR ( Amer) Est GFR (Non-Af Amer) BUN/Creatinine Ratio (10-20) Glucose (70-99) mg/dl POC Glucose (70-99) Calcium (8.5-10.1) mg/dl Total Bilirubin (0.2-1) mg/dl AST (15-37) U/L ALT (12-78) U/L Alkaline Phosphatase (45-117) U/L Total Protein (6.4-8.2) gm/dl Albumin (3.4-5.0) gm/dl Globulin (2.5-4.0) gm/dl Albumin/Globulin Ratio (0.9-2) PG Care Time/CCT Total # of Minutes Spent Total Time Spent with Patient: Total time spent is greater than 50% in coordination of care (as documented) at patient's floor/unit and/or counseling patient:
[2018-10-23] MEDS ORDERED: LIDOCAINE HCL 1% 20 ML VIAL INJ ONE (12:44)
--- NOTE | 2018-10-23 13:04 | Procedure Note ---
Angiogram Post Procedure Fluoroscopy Time (minutes): 4.6 Conscious Sedation Time (minutes): 51 Radiation (mGy): 62.31 Contrast: 20 Post Operative Report Pre & Post Diagnosis Operation Date: 10/23/18 08:20 Pre-Op Diagnosis: Ischemic Left Leg Post-Op Diagnosis: Ischemic Left Leg Procedure Operation Date: 10/23/18 08:20 Actual Procedures p Left Leg Arteriogram, Insertion of Infusion Catheter for Thrombolysis, Catheter Directed Thrombolysis, Moderate Concious Sedation 1212 to 1303.(Right) - Bhavin Ambriz MD Surgeon Bhavin Ambriz MD Leather Splitter Whitney Gómez MD Estimated Blood Loss 10 Findings Consistent with Post-Op Diagnosis Specimens none Drains 160cc NS Anesthesia Type RN Sedation Complications none Disposition Accompanied Patient To Recovery: No Disposition: Surgical ICU Indications ischemic LLE Description of Procedure The patient was taken to the operating room and placed in the supine position. The patient's identity and surgical site were verified. The bilateral groins were prepped and draped in the usual sterile fashion. A timeout was performed. Ultrasound guidance of the right common femoral artery was obtained. A guidewire was advanced. A 5F sheath was placed. The guidewire was removed and a glidewire was advanced to the aorta. A rim catheter & the glidewire were used to gain access to the left iliac system. An angiogram of the left iliac and proximal femoral systems was obtained and revealed patent common, external, and internal iliacs, and patent common femoral artery. The wire and catheter were advanced to the common femoral artery and the rest of the leg was imaged. This revealed a patent proximal superficial femoral artery which dropped off at the mid-SFA. The profunda was open. There was reconstitution of the below-knee popliteal artery via collaterals however the opacification was faint and there appeared to be clot in the below-knee popliteal artery which extended into the tibioperoneal trunk, PT, and peroneal arteries. A stiffened glidewire was reinserted and advanced to the level of the below-knee popliteal artery. A quickcross catheter was advanced over the wire. An angiogram was shot which revealed we were in the true lumen. We then removed the quickcross catheter over a stiffened glidewire, then the 5F sheath and placed a 6F destination sheath. We then placed a 6F Trego catheter (30cm x 135cm) with its tip in the below-knee popliteal artery. The ports and catheters were flushed. Extension tubing was attached to both the port connecting to the sheath and to the catheter. The sheath, catheter, and tubing were secured using a rad rile towel and Tegaderm. Dr. Ambriz was present and scrubbed for the entire procedure. At the conclusion of the procedure all needle, instrument, and sponge counts were correct. The patient tolerated the procedure well and was taken to the ICU for thrombolytic therapy in satisfactory condition. I attest to the content of the Intraoperative Record and any orders documented t herein. Any exceptions are noted below.
--- NOTE | 2018-10-23 13:04 | Post Operative Brief Note ---
Immediate Post Op Note v1 Date of Surgery October 23, 2018 Pre & Post Diagnosis Operation Date: 10/23/18 08:20 Pre-Op Diagnosis: Ischemic Left Leg Post-Op Diagnosis: Ischemic Left Leg Procedure Operation Date: 10/23/18 08:20 Actual Procedures p Left Leg Arteriogram, Insertion of Infusion Catheter for Thrombolysis, Catheter Directed Thrombolysis, Moderate Concious Sedation 1212 to 1303(Right) - Bhavin Ambriz MD Surgeon Bhavin Ambriz MD Dredge Runner MD Diane Estimated Blood Loss 10 Findings Consistent with Post-Op Diagnosis Anesthesia Type RN Sedation Complications none Disposition Accompanied Patient To Recovery: No Disposition: Surgical ICU
[2018-10-23] MEDS ORDERED: VISIPAQUE IV PRN (13:13)
--- NOTE | 2018-10-23 13:21 | Post Anesthesia Assessment ---
Date of Service October 23, 2018 Post Sedation Assessment Vital Signs Temp Pulse Pulse Resp BP BP BP 10/23/18 13:03 84 18 143/77 H 10/23/18 12:58 74 18 147/85 H 10/23/18 12:57 75 18 146/84 H 10/23/18 12:52 74 18 147/86 H 10/23/18 12:47 78 18 157/84 H 10/23/18 12:42 82 22 148/87 H 10/23/18 12:37 82 17 159/88 H 10/23/18 12:32 36.7 C 85 92 H 20 153/87 H 168/91 H 10/23/18 12:27 84 22 147/80 H 10/23/18 12:22 82 21 146/86 H 10/23/18 12:17 83 19 135/84 10/23/18 12:12 86 19 163/91 H 10/23/18 12:11 89 14 163/91 H 10/23/18 11:37 36.6 C 93 H 18 160/100 H 10/23/18 09:43 84 188/96 H 10/23/18 08:00 84 10/23/18 07:11 36.4 C L 84 20 191/96 H 202/107 H 10/23/18 05:55 84 10/23/18 04:52 10/23/18 04:18 84 18 177/103 H 10/23/18 04:15 36.5 C 86 20 198/89 H 10/23/18 02:23 86 18 177/99 H 10/23/18 01:27 85 18 178/95 H 10/22/18 23:55 36.7 C 106 H 16 220/107 H Pulse Ox Pulse Ox 10/23/18 13:03 94 10/23/18 12:58 97 10/23/18 12:57 98 10/23/18 12:52 96 10/23/18 12:47 98 10/23/18 12:42 98 10/23/18 12:37 98 10/23/18 12:32 95 10/23/18 12:27 98 10/23/18 12:22 99 10/23/18 12:17 99 10/23/18 12:12 99 10/23/18 12:11 99 10/23/18 11:37 96 10/23/18 09:43 08/26/19 08:00 10/23/18 07:11 96 10/23/18 05:55 10/23/18 04:52 95 10/23/18 04:18 97 10/23/18 04:15 95 10/23/18 02:23 97 10/23/18 01:27 96 10/22/18 23:55 97 Recovery Score Activity: Moves 4 extremities Respiration: Deep Breath/Cough Circulation: +/-20% PreAnes Value Consciousness: Fully Awake Oxygen Saturation: > 92% On Room Air Post Anesthesia Score: 10 Discharge Sedation Level of Care: Higher Level of Care Post Sedation Plan On clinical assessment, the patient appears to have tolerated the sedation without complications. Patient is recovering as anticipated. Patient will continue to be monitored by nursing and may be discharged when sedation discharge criteria are met per below protocol. Upon Completions of procedure and additional 15 minutes continue every 5 minute vital signs and the P.A.R. score; then discharge to a Phase I or Fast Track to Phase II per the following guidelines: * Discharge Patient to appropriate Phase II area if PAR is 8 or greater or return to pre- procedure baseline. The post - procedure orders will be as directed. * If PAR score is less than 8 or not return to pre-procedure baseline then patient will follow Phase I monitoring till PAR is reached for Phase II. The Phase I may be done in procedure room or may call to secure a Phase I area. * If naloxone or flumazenil are used for reversal, hold in Phase I for continued monitoring from when last reversal dose was given for a minimum of 60 minutes or longer pending the nurse and/or physician discretion of patient condition before discharge to Phase II. Please call the Sedation Physician to re-evaluate and complete post-note for discharge to Phase II area. Do NOT discharge from procedure sedation or Phase 1 until post- sedation evaluation note is complete by procedure /sedation MD Sedation Discharge Instructions to be given to the patient at discharge to home.
[2018-10-23] MEDS ORDERED: ALTEPLASE, RECOMBINANT 24 MG in SODIUM CHLORIDE 0.9% 250 ML IV STA (14:03)
--- NOTE | 2018-10-23 14:08 | Critical Care Consultation ---
Date of Consultation October 23, 2018 Assessment & Plan (1) Arterial occlusion, lower extremity: Reason Critically Ill: 67-year-old male here with a PMHx significant for PVD s/p fem-pop stenting, T2DM, and tobacco abuse who presented with a cool, painful LLE and who was admitted for superficial femoral/popliteal arterial occlusion. Neuro - [facility] ICU: NEGATIVE Pain Control: Morphine 1-3mg Q2H IV PRN Cardiac - No known cardiac disease - Enalapril prescribed for renal protection in T2DM, per pt no known home hx of HTN - Hydralazine 10mg Q8H PRN for systolic >180 Vascular Left Superficial femoral/popliteal occlusion - Per Duplex: "Distal superficial femoral artery at the site of prior hemodynamically significant stenosis. Apparent occlusion or near occlusion of the popliteal artery and lower leg arteries." - Pending surgical intervention with Dr. Ambriz tomorrow morning - tPA infusion catheter dosin mg / hr for 12hrs THEN infuse tPA 1 mg / 20mL / hr thru infusion catheter & infuse HEPARIN via introducer side port for 12 hours Respiratory - Denies respiratory disease SpO2 >92% on room air GI - NPO + meds pending surgical intervention RENAL/LYTES - Na, K, Cl wnl Cr 1.35 Replace lytes as needed. NS 100cc/hr - No concerns at this time. ENDO - T2DM - Held home gemfibrozil, glimepiride, pioglitazone-metformin - Insulin SSI, glucose checks Q8H - Continue OUTSIDE COLLECTOR enalapril 10mg daily - BMP daily HEME - Stable H&H, hgb 13.5 on admit Will monitor for any drops in the setting of Heparin gtt ID - No concerns for infection at this point. Monitor fever curve. INTEGUMENTARY - R femoral catheter in as noted below. No other acute skin changes/lesions LINES/IV ACCESS - R arm PIV intact. R femoral 6 Turkmen found catheter present, covered in sterile towel and Tegaderm. DVT PROPHYLAXIS - Heparin gtt. Thank you for allowing us to be part of this patient's care. Please refer to Dr. Melgar's documentation for any further recommendations. (2) HTN (hypertension): (3) DM (diabetes mellitus): (4) Tobacco abuse: (5) DVT prophylaxis: (6) Atherosclerosis of artery of left lower extremity: Supervising Physician Co-Signing Physician Notes Dr. Horne was resident physician during care of patient. I separately evaluated patient for amos portions of the history and the exam. I was present during the critical portion of medical decision making, and I discussed the case with the resident. I generally agree with the findings and plan. Discussed with Dr. Ambriz, foot has paresthesias he is able to sense touch of the fifth digit however second and third digits are largely insensate. There is decreased capillary refill but it is present. Continue anticoagulation per vascular surgery. History of Present Illness Reason for Consultation: Left superficial femoral/popliteal arterial occlusion Requesting Physician: Bhavin Ambriz Attending Physician: Wendie Lassiter MD History of Present Illness Cody is a 67-year-old male with a past medical history of type 2 diabetes mellitus, tobacco abuse, and peripheral vascular disease with femoropopliteal stenting 09/18/2018 who presented to the hospital with left lower extremity pain, coolness, and numbness which did not improve with a warm soak. He was on Plavix therapy for 1 month which she finished 4 days prior to admission. On the morning of admission he felt a cramp in his left calf which then worsened with tingling and coolness. He was concerned that he was having a stroke and presented to the emergency department. On presentation left lower extremity Doppler showed occlusion of the distal superficial femoral artery at the site of prior hemodynamically significant stenosis and apparent occlusion or near occlusion of the popliteal artery and lower leg arteries. Vascular surgery was consulted and he underwent a left leg arteriogram with insertion of infusion catheter for thrombolysis with Dr. Ambriz. He was placed on heparin/TPA infusion via femoral catheter and will undergo further surgical intervention tomorrow morning. At time of consultation he denies chest pain, chest pressure, headache, vision change, visual field cuts, diplopia, pain in either lower extremity, shortness of breath, difficulty breathing, rash, skin changes, fever, chills, sweats, abdominal pain, nausea, vomiting, melena, BRBPR, epistaxis. He endorses some discomfort in his right upper leg at the site of catheterization. He endorses sensation in his left lower extremity and foot, qualitatively decreased from the right. Reports he had a nicotine patch at midnight and while is that he is not currently wearing one, does not feel any cravings at this time. No other questions or concerns. Past medical history: Tobacco abuse, type 2 diabetes mellitus, peripheral vascular disease. Denies coronary artery disease, lung disease. Surgical history: Endorses history of cataract surgery, retina surgery, left knee surgery, and left femoropopliteal stenting No known medication allergies Social: Tobacco daily use. Denies alcohol, substance use. Normally lives home alone, single. Full code Allergies Allergy/AdvReac Type Severity Reaction Status Date / Time cat dander Allergy Unknown Verified 10/23/18 02:38 Home Medications Home Medications Medication Instructions Recorded Confirmed Type enalapril maleate 10 mg PO DAILY 09/15/18 10/23/18 History gemfibrozil 600 mg PO BID 09/15/18 10/23/18 History glimepiride 4 mg PO BID 09/15/18 10/23/18 History pioglitazone-metformin 1 tab PO BID 10/23/18 10/23/18 History Patient History Medical History Diabetes mellitus (Acute) Surgical History History of cataract extraction (Acute) History of eye surgery (Acute) retina History of left knee surgery (Acute) Social History Preferred Language: Mongolian Communication Ability: Effective 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: No Beliefs That Will Affect Care: None Current Living Situation: Alone Other Information That Helps Us Care for You: No Feels Safe at Home: Yes Safety Concerns: Feels Safe At This Time Smoking Status: Current every day smoker Tobacco Type: cigarettes ; Do You Dip or Chew Tobacco: No ; Second Hand Exposure: No ; Tobacco Cessation Education Requested by Patient: No Hx Alcohol Use: No Hx Substance Use: No Review of Systems Review of Systems: Constitutional: Denies fever, chills, malaise, weight ch rosa Eyes: Denies double vision, vision change, eye pain ENT: Sore throat, cough, sinus congestion Cardiovascular: Denies chest pain, chest pressure, palpitations, extremity swelling Respiratory: Denies shortness of breath, cough, sputum production, difficulty breathing Gastrointestinal: Denies abdominal pain, nausea, vomiting, constipation, diarrhea. Last bowel movement 1 day OUTSIDE COLLECTOR. Genitourinary: Denies pain with urination, urinary urgency, urinary frequency Musculoskeletal: Left leg numbness, pain as noted in HPI. Integumentary:Denies rash, lesions, bruising Neurological: Denies headache. Left leg numbness/tingling as noted in HPI Physical Exam Physical Exam: General: A&Ox3. NAD. Cooperative. HEENT: Atraumatic, normocephalic. EOM intact. No visual field cuts. Pupils equal and reactive to light and accommodation. Pulm: CTAB A&P. -wheezes, -rales, -rhonchi. Symmetrical chest rise. No increase work of breathing. No respiratory distress. Cardiac: RRR, -mrg. Radial pulses intact and symmetrical. Abdominal: Nontender, nondistended, soft. BS present. Extremity: 6 Turkmen found catheter present in right femoral, covered in sterile towel and Tegaderm. 5/5 strength to plantarflexion/dorsiflexion and hip flexion in right extremity. Right lower extremity warm, dry, PT pulse intact. 4/5 strength to plantar flexion/dorsiflexion and left ankle, lower left extremity cool, dry. PT/DP pulse not appreciated. Sensation intact, diminished fompared to R Results & Data Vital Signs (Past 12 Hours) Vital Signs Temp Pulse Pulse Resp BP BP BP 10/23/18 13:03 84 18 143/77 H 10/23/18 12:58 74 18 147/85 H 10/23/18 12:57 75 18 146/84 H 10/23/18 12:52 74 18 147/86 H 10/23/18 12:47 78 18 157/84 H 10/23/18 12:42 82 22 148/87 H 10/23/18 12:37 82 17 159/88 H 10/23/18 12:32 36.7 C 85 92 H 20 153/87 H 168/91 H 10/23/18 12:27 84 22 147/80 H 10/23/18 12:22 82 21 146/86 H 10/23/18 12:17 83 19 135/84 10/23/18 12:12 86 19 163/91 H 10/23/18 12:11 89 14 163/91 H 10/23/18 11:37 36.6 C 93 H 18 160/100 H 10/23/18 09:43 84 188/96 H 10/23/18 08:00 84 10/23/18 07:11 36.4 C L 84 20 191/96 H 202/107 H 10/23/18 05:55 84 10/23/18 04:52 10/23/18 04:18 84 18 177/103 H 10/23/18 04:15 36.5 C 86 20 198/89 H 10/23/18 02:23 86 18 177/99 H Pulse Ox Pulse Ox 10/23/18 13:03 94 10/23/18 12:58 97 10/23/18 12:57 98 10/23/18 12:52 96 10/23/18 12:47 98 10/23/18 12:42 98 10/23/18 12:37 98 10/23/18 12:32 95 10/23/18 12:27 98 10/23/18 12:22 99 10/23/18 12:17 99 10/23/18 12:12 99 10/23/18 12:11 99 10/23/18 11:37 96 10/23/18 09:43 10/23/18 08:00 10/23/18 07:11 96 10/23/18 05:55 10/23/18 04:52 95 10/23/18 04:18 97 10/23/18 04:15 95 10/23/18 02:23 97 PG Care Time/CCT Total # of Minutes Spent Total Time Spent with Patient: Total time spent is greater than 50% in coordination of care (as documented) at patient's floor/unit and/or counseling patient: Resident Activity Tracking Resident Involvement: Resident Care Provided Care Provided: Adult Hospital Medicine
[2018-10-23 14:24] LABS: Basophils # (auto) 0.02 K/uL (0-0.2); Basophils % (auto) 0.3 %; Eosinophils # (auto) 0.16 K/uL (0-0.5); Eosinophils % (auto) 2.5 %; Hematocrit (blood only) 37.9 % (42-52); Immature Granulocytes # (auto) 0.02 K/uL (0.00-0.02); Immature Granulocytes % (auto) 0.3 %; Lymphocytes # (auto) 1.88 K/uL (1.2-3.4); Lymphocytes % (auto) 29.7 %; Mean Corpuscular Hemoglobin 29.5 pg (25-34); Mean Corpuscular Volume 85.9 fL (80-100); Mean Platelet Volume 10.2 fL (7.4-10.4); Monocytes # (auto) 0.48 K/uL (0.11-0.59); Monocytes % (auto) 7.6 %; Neutrophils # (auto) 3.77 K/uL (1.4-6.5); Neutrophils % (auto) 59.6 %; Platelet Count 134 K/uL (130-400); RDW Standard Deviation 40.6 fL (36.4-46.3); Red Blood Count 4.41 M/uL (4.7-6.1); White Blood Count 6.33 K/uL (4.8-10.8)
[2018-10-23 14:33] LABS: Mean Corpuscular Hgb Conc 34.3 g/dL (32-36)
[2018-10-23 14:50] LABS: BUN Creatinine Ratio 16.2 (10-20); Calcium 8.6 mg/dl (8.5-10.1); Creatinine Clr Calc Pharmacy 87.2 ml/min; Est GFR (African American) 82.5; Est GFR (Non-African American) 71.1; Potassium 3.6 mmol/L (3.5-5.1)
[2018-10-23 14:58] LABS: Fibrinogen 288 mg/dl (184-400); Partial Thromboplastin Ratio 1.6
[2018-10-23] MEDS: HEPARIN SODIUM/DEXTROSE 25,000 UNIT/500 ML BAG IV SCH (15:04)
[2018-10-23] MEDS: SODIUM CHLORIDE 0.9% 1000ML 1,000 ML IV SCH ×2 (15:05→16:33)
[2018-10-23] MEDS: MoRPHine SULFATE 4 MG/ML 1 ML CARP\\VIAL IV PRN ×3 (16:25→20:39)
[2018-10-23 19:24] LABS: Hematocrit (blood only) 38.6 % (42-52); Hemoglobin 13.2 g/dL (14.0-18.0); Mean Corpuscular Hemoglobin 29.5 pg (25-34); Mean Corpuscular Hgb Conc 34.2 g/dL (32-36); Mean Corpuscular Volume 86.2 fL (80-100); Mean Platelet Volume 10.3 fL (7.4-10.4); Platelet Count 128 K/uL (130-400); Red Blood Count 4.48 M/uL (4.7-6.1); White Blood Count 8.36 K/uL (4.8-10.8)
[2018-10-23 19:47] LABS: Basophils # (auto) 0.01 K/uL (0-0.2); Basophils % (auto) 0.1 %; Eosinophils # (auto) 0.09 K/uL (0-0.5); Eosinophils % (auto) 1.1 %; Immature Granulocytes # (auto) 0.02 K/uL (0.00-0.02); Immature Granulocytes % (auto) 0.2 %; Lymphocytes # (auto) 1.08 K/uL (1.2-3.4); Lymphocytes % (auto) 12.9 %; Monocytes # (auto) 0.58 K/uL (0.11-0.59); Monocytes % (auto) 6.9 %; Neutrophils # (auto) 6.58 K/uL (1.4-6.5); Neutrophils % (auto) 78.8 %
[2018-10-23 20:02] LABS: Fibrinogen 232 mg/dl (184-400); Partial Thromboplastin Ratio 1.2; Partial Thromboplastin Time 31.2 Seconds (21.0-31.0)
[2018-10-24] MEDS: HEPARIN SODIUM/DEXTROSE 25,000 UNIT/500 ML BAG IV SCH (00:03)
[2018-10-24] MEDS: MoRPHine SULFATE 4 MG/ML 1 ML CARP\\VIAL IV PRN ×2 (00:16→05:00)
[2018-10-24 02:01] LABS: Basophils # (auto) 0.01 K/uL (0-0.2); Basophils % (auto) 0.1 %; Eosinophils # (auto) 0.06 K/uL (0-0.5); Eosinophils % (auto) 0.8 %; Hematocrit (blood only) 35.8 % (42-52); Hemoglobin 12.5 g/dL (14.0-18.0); Immature Granulocytes # (auto) 0.02 K/uL (0.00-0.02); Immature Granulocytes % (auto) 0.3 %; Lymphocytes # (auto) 1.63 K/uL (1.2-3.4); Lymphocytes % (auto) 20.5 %; Mean Corpuscular Hgb Conc 34.9 g/dL (32-36); Mean Corpuscular Volume 86.1 fL (80-100); Mean Platelet Volume 9.9 fL (7.4-10.4); Monocytes # (auto) 0.64 K/uL (0.11-0.59); Neutrophils # (auto) 5.61 K/uL (1.4-6.5); Neutrophils % (auto) 70.3 %; Platelet Count 115 K/uL (130-400); RDW Standard Deviation 40.9 fL (36.4-46.3); Red Blood Count 4.16 M/uL (4.7-6.1); White Blood Count 7.97 K/uL (4.8-10.8)
[2018-10-24] MEDS ORDERED: ALTEPLASE, RECOMBINANT 12 MG in SODIUM CHLORIDE 0.9% 250 ML IV SCH (02:05)
[2018-10-24 02:26] LABS: BUN Creatinine Ratio 14.8 (10-20); Calcium 7.8 mg/dl (8.5-10.1); Creatinine Clr Calc Pharmacy 91.5 ml/min; Est GFR (African American) 87.3; Est GFR (Non-African American) 75.3; Potassium 3.7 mmol/L (3.5-5.1)
[2018-10-24 02:28] LABS: Partial Thromboplastin Ratio 1.3
[2018-10-24 02:53] LABS: Partial Thromboplastin Time 33.7 Seconds (21.0-31.0)
[2018-10-24 02:57] LABS: Fibrinogen 150 mg/dl (184-400)
[2018-10-24] MEDS: SODIUM CHLORIDE 0.9% 1000ML 1,000 ML IV SCH (03:30)
[2018-10-24 05:56] LABS: Estimated Average Glucose 154 mg/dl
--- NOTE | 2018-10-24 06:01 | Critical Care Progress Note ---
Date of Service October 24, 2018 Assessment & Plan (1) Arterial occlusion, lower extremity: Reason Critically Ill: 67-year-old male here with a PMHx significant for PVD s/p fem-pop stenting, T2DM, and tobacco abuse who presented with a cool, painful LLE and who was admitted for superficial femoral/popliteal arterial occlusion. Neuro - [facility] ICU: NEGATIVE Pain Control: Morphine 1-3mg Q2H IV PRN Cardiac - No known cardiac disease - Enalapril prescribed for renal protection in T2DM, per pt no known home hx of HTN - Hydralazine 10mg Q8H PRN for systolic >180 Vascular Left Superficial femoral/popliteal occlusion - Per Duplex: "Distal superficial femoral artery at the site of prior he modynamically significant stenosis. Apparent occlusion or near occlusion of the popliteal artery and lower leg arteries." - Pending surgical re-intervention with Dr. Ambriz today - s/p catheter infusion with TPA/heparin Respiratory - Denies respiratory disease SpO2 >92% on room air GI - NPO + meds pending surgical intervention RENAL/LYTES - Na, K, Cl wnl Cr 1.01 Mg 1.6, +Mag IV 1g IV x2 doses Replace lytes as needed. - No concerns at this time. ENDO - T2DM - Held home gemfibrozil, glimepiride, pioglitazone-metformin - Insulin SSI, glucose checks Q8H - Continue [employer] enalapril 10mg daily - BMP daily HEME - Stable H&H, hgb 13.5 on admit Will monitor for any drops in the setting of Heparin gtt ID - No concerns for infection at this point. Monitor fever curve. INTEGUMENTARY - R femoral catheter in as noted below. No other acute skin changes/lesions LINES/IV ACCESS - R arm PIV intact. R femoral 6 Cape Verdean found catheter present, covered in sterile towel and Tegaderm. DVT PROPHYLAXIS - Heparin gtt. Thank you for allowing us to be part of this patient's care. Please refer to Dr. Melgar's documentation for any further recommendations. Supervising Physician Co-Signing Physician Notes Dr. Horne was resident physician during care of patient. I separately evaluated patient for amos portions of the history and the exam. I was present during the critical portion of medical decision making, and I discussed the case with the resident. I generally agree with the findings and plan. Discussed with Dr. Ambriz, return to operating room to re-evaluate acute occlusion. Given 2 g magnesium sulfate IV. Subjective Mr. Alvarez reports he feels his foot continues to be cool and numb, but is with very little pain, and much less painful than last night. He is awaiting surgical intervention with vascular. No bleeding, no shortness of breath, no chest pain. No questions or concerns at time of visit. Review of Systems Review of Systems: Constitutional: Denies fever, chills, malaise, weight change Eyes: Denies double vision, vision change, eye pain ENT: Sore throat, cough, sinus congestion Cardiovascular: Denies chest pain, chest pressure, palpitations, extremity swelling Respiratory: Denies shortness of breath, cough, sputum production, difficulty breathing Gastrointestinal: Denies abdominal pain, nausea, vomiting, constipation, diarrhea. Genitourinary: Denies pain with urination, urinary urgency, urinary frequency Musculoskeletal: Left leg decreased sensation, mild pain. No RLE pain/numbness. Integumentary:Denies rash, lesions, bruising Neurological: Denies headache. MSK as noted above Physical Exam Physical Exam: General: A&Ox3. NAD. Cooperative. HEENT: Atraumatic, normocephalic. EOM intact. No visual field cuts. Pupils equal and reactive to light and accommodation. Pulm: CTAB A&P. -wheezes, -rales, -rhonchi. Symmetrical chest rise. No increase work of breathing. No respiratory distress. Cardiac: RRR, -mrg. Radial pulses intact and symmetrical. Abdominal: Nontender, nondistended, soft. BS present. Extremity: 6 Cape Verdean found catheter present in right femoral, covered in sterile towel and Tegaderm. 5/5 strength to R plantarflexion/dorsiflexion and hip flexion in right extremity. Right lower extremity warm, dry, PT pulse intact. 4/5 strength to L plantar flexion/dorsiflexion and left ankle, lower left extremity cool, dry. PT/DP pulse not appreciated. Proprioception intact, sensation intact but qualitatively decreased compared to R Results & Data Vital Signs (Past 12 Hours) Vital Signs Temp Pulse Resp BP Pulse Ox 10/24/18 05:00 99 H 11 L 177/102 H 95 10/24/18 04:40 91 H 9 L 178/98 H 94 10/24/18 03:00 91 H 20 157/91 H 92 10/24/18 02:00 90 23 176/91 H 92 10/24/18 01:20 91 H 24 168/94 H 92 10/24/18 01:00 94 H 26 H 168/94 H 94 10/24/18 00:00 36.6 C 91 H 13 162/91 H 94 10/23/18 23:20 92 H 10/23/18 23:00 91 H 19 175/88 H 93 10/23/18 19:30 102 H 12 171/82 H 94 10/23/18 19:00 84 1 L 143/87 H 95 10/23/18 18:30 85 15 185/98 H 97 10/23/18 18:01 84 12 121/61 96 PG Care Time/CCT Total # of Minutes Spent Total Time Spent with Patient: Total time spent is greater than 50% in coordination of care (as documented) at patient's floor/unit and/or counseling patient: Resident Activity Tracking Resident Involvement: Resident Care Provided Care Provided: Adult Hospital Medicine
--- NOTE | 2018-10-24 07:38 | Surgery Progress Note ---
Date of Service October 24, 2018 Assessment & Plan (1) Arterial occlusion, lower extremity: Patient at this point is undergoing thrombolysis. He was he is doing well. It appears his foot is now being better perfused. We will taken back to the angiogram suite today for recheck of the thrombolytic treatment as well as possible intervention. I have discussed the risks options and benefits of the procedure with the patient. The patient understands the risks options and benefits and agrees to the procedure. Subjective Patient claims his foot feels better. There is no pain in his foot at this time he is able to feel his foot and toes. Physical Exam Physical Exam: On exam his left toes are better formed than yesterday. There are more pink. He has a good posterior tibial Doppler signal and an acceptable dorsalis pedis Doppler signal. Results & Data Vital Signs (Past 12 Hours) Vital Signs Temp Pulse Resp BP Pulse Ox 10/24/18 06:00 96 H 26 H 178/84 H 89 L 10/24/18 05:00 99 H 11 L 177/102 H 95 10/24/18 04:40 91 H 9 L 178/98 H 94 10/24/18 03:00 91 H 20 157/91 H 92 10/24/18 02:00 90 23 176/91 H 92 10/24/18 01:20 91 H 24 168/94 H 92 10/24/18 01:00 94 H 26 H 168/94 H 94 10/24/18 00:00 36.6 C 91 H 13 162/91 H 94 10/23/18 23:20 92 H 10/23/18 23:00 91 H 19 175/88 H 93
[2018-10-24] MEDS ORDERED: CEFAZOLIN 2000MG 2,000 MG/15 ML SYR IV ONE (08:00)
[2018-10-24 08:24] LABS: Basophils # (auto) 0.01 K/uL (0-0.2); Basophils % (auto) 0.1 %; Eosinophils # (auto) 0.04 K/uL (0-0.5); Eosinophils % (auto) 0.5 %; Hematocrit (blood only) 35.8 % (42-52); Hemoglobin 12.4 g/dL (14.0-18.0); Immature Granulocytes # (auto) 0.02 K/uL (0.00-0.02); Immature Granulocytes % (auto) 0.2 %; Lymphocytes # (auto) 1.09 K/uL (1.2-3.4); Lymphocytes % (auto) 12.7 %; Mean Corpuscular Hemoglobin 29.7 pg (25-34); Mean Corpuscular Hgb Conc 34.6 g/dL (32-36); Mean Corpuscular Volume 85.6 fL (80-100); Monocytes # (auto) 0.84 K/uL (0.11-0.59); Monocytes % (auto) 9.8 %; Neutrophils % (auto) 76.7 %; Platelet Count 114 K/uL (130-400); RDW Coefficient of Variation 12.9 % (11.5-14.5); RDW Standard Deviation 40.4 fL (36.4-46.3); Red Blood Count 4.18 M/uL (4.7-6.1)
[2018-10-24 08:31] LABS: Partial Thromboplastin Ratio 1.3; Partial Thromboplastin Time 35.6 Seconds (21.0-31.0)
[2018-10-24] MEDS: INSULIN ASPART 100 UNITS/ML 3 ML PEN SC SCH ×2 (08:38→12:26)
[2018-10-24 08:56] LABS: BUN Creatinine Ratio 14.5 (10-20); Creatinine Clr Calc Pharmacy 92.9 ml/min; Est GFR (African American) 89.4; Est GFR (Non-African American) 77.1; Magnesium 1.6 mg/dl (1.8-2.4); Phosphorus 2.7 mg/dl (2.5-4.9); Potassium 3.7 mmol/L (3.5-5.1)
[2018-10-24 09:01] LABS: Fibrinogen 165 mg/dl (184-400)
--- NOTE | 2018-10-24 10:12 | Pre Anesthesia Assessment ---
Date of Service October 24, 2018 Pre Sedation Assessment Vital Signs Temp Pulse Pulse Resp BP BP BP 10/24/18 09:51 37.2 C 100 H 16 129/83 10/24/18 08:00 37.3 C 96 H 100 H 20 173/88 H 10/24/18 06:00 96 H 26 H 178/84 H 10/24/18 05:00 99 H 11 L 177/102 H 10/24/18 04:40 91 H 9 L 178/98 H 10/24/18 03:00 91 H 20 157/91 H 10/24/18 02:00 90 23 176/91 H 10/24/18 01:20 91 H 24 168/94 H 10/24/18 01:00 94 H 26 H 168/94 H 10/24/18 00:00 36.6 C 91 H 13 162/91 H 10/23/18 23:20 92 H 10/23/18 23:00 91 H 19 175/88 H 10/23/18 19:30 102 H 12 171/82 H 10/23/18 19:00 84 1 L 143/87 H 10/23/18 18:30 85 15 185/98 H 10/23/18 18:01 84 12 121/61 10/23/18 18:00 69 13 10/23/18 17:30 82 8 L 160/88 H 10/23/18 17:00 91 H 12 188/115 H 10/23/18 16:30 94 H 21 192/111 H 10/23/18 16:00 36.7 C 84 16 171/92 H 10/23/18 13:30 36.8 C 78 18 143/87 H 10/23/18 13:12 10/23/18 13:03 84 18 143/77 H 10/23/18 12:58 74 18 147/85 H 10/23/18 12:57 75 18 146/84 H 10/23/18 12:52 74 18 147/86 H 10/23/18 12:47 78 18 157/84 H 10/23/18 12:42 82 22 148/87 H 10/23/18 12:37 82 17 159/88 H 10/23/18 12:32 36.7 C 85 92 H 20 153/87 H 168/91 H 10/23/18 12:27 84 22 147/80 H 10/23/18 12:22 82 21 146/86 H 10/23/18 12:17 83 19 135/84 10/23/18 12:12 86 19 163/91 H 10/23/18 12:11 89 14 163/91 H 10/23/18 11:37 36.6 C 93 H 18 160/100 H Pulse Ox Pulse Ox 10/24/18 09:51 93 10/24/18 08:00 94 97 10/24/18 06:00 89 L 10/24/18 05:00 95 10/24/18 04:40 94 10/24/18 03:00 92 10/24/18 02:00 92 10/24/18 01:20 92 10/24/18 01:00 94 10/24/18 00:00 94 10/23/18 23:20 10/23/18 23:00 93 10/23/18 19:30 94 10/23/18 19:00 95 10/23/18 18:30 97 10/23/18 18:01 96 10/23/18 18:00 95 10/23/18 17:30 94 10/23/18 17:00 96 10/23/18 16:30 97 10/23/18 16:00 96 10/23/18 13:30 97 10/23/18 13:12 97 10/23/18 13:03 94 10/23/18 12:58 97 10/23/18 12:57 98 10/23/18 12:52 96 10/23/18 12:47 98 10/23/18 12:42 98 10/23/18 12:37 98 10/23/18 12:32 95 10/23/18 12:27 98 10/23/18 12:22 99 10/23/18 12:17 99 10/23/18 12:12 99 10/23/18 12:11 99 10/23/18 11:37 96 Cardiovascular RRR, no murmur, no edema Respiratory normal respiratory effort, lungs clear to auscultation Pre-Sedation Airway Assessment Smoking Status: Current every day smoker Hx Sleep Apnea: No Short, Thick Neck: No Thyromental Distance: > or= 3.5 Finger Breadths Oral Cavity: + Dental Abnormalities Mallampati Class: I ASA: ASA3 NPO Status Date of Last Intake of Fluids: 10/22/18 Time of Last Intake of Fluids: 19:00 Date of Last Intake of Solid Food: 10/22/18 Time of Last Intake of Solid Foods: 19:00 Procedure Planning Contraindications for Sedation: none Current Medications Reviewed: Yes Notes The planned sedation has been discussed with the patient. Informed Consent was obtained. I have identified the patient, determined the appropriateness of sedation and have assessed the patient immediately prior to the procedure. All medicine(s) and interventions are by my order.
[2018-10-24] MEDS ORDERED: CEFAZOLIN 2,000 MG/15 ML IV PUSH IV ONE (10:32)
[2018-10-24] MEDS ORDERED: fentaNYL citrate 100 MCG/2 ML VIAL ONE (10:49)
[2018-10-24] MEDS ORDERED: MIDAZOLAM HCL 1 MG/ML 2ML VIAL ONE ×2 (10:49→10:51)
[2018-10-24] MEDS ORDERED: ATROPINE SULFATE 0.1 MG/ML 10ML SYR IV ONE (10:49)
[2018-10-24] MEDS ORDERED: HEPARIN SOD (PORCINE) 5,000 UNITS/ML VIAL ONE (10:52)
--- NOTE | 2018-10-24 11:24 | Post Operative Brief Note ---
Immediate Post Op Note v1 Date of Surgery October 24, 2018 Pre & Post Diagnosis Operation Date: 10/23/18 08:20 Pre-Op Diagnosis: Ischemic Left Leg Post-Op Diagnosis: Ischemic Left Leg Operation Date: 10/24/18 10:00 Pre-Op Diagnosis: Thrombosed left superficial femoral artery Post-Op Diagnosis: Thrombosed left superficial femoral artery Procedure Operation Date: 10/23/18 08:20 Actual Procedures p Left Leg Arteriogram, Insertion of Infusion Catheter for Thrombolysis, Catheter Directed Thrombolysis, Moderate Concious Sedation 1212 to 1303.(Right) - Bhavin Ambriz MD Operation Date: 10/24/18 10:00 Actual Procedures p TPA recheck and Cessation Of Thrombolysis, Left Leg Angiogram, Mechanical Closure Right Femoral Artery, Moderate Concious Sedation 1108 to 1131(Right) - Bhavin Ambriz MD Surgeon Bhavin Ambriz MD Sheeter Helper none Estimated Blood Loss 3 Findings Consistent with Post-Op Diagnosis Anesthesia Type RN Sedation Complications none Disposition Accompanied Patient To Recovery: No Disposition: Surgical ICU
[2018-10-24] MEDS ORDERED: VISIPAQUE IV ONE (11:28)
[2018-10-24] MEDS ORDERED: LIDOCAINE HCL 1% 20 ML VIAL INJ ONE (11:29)
--- NOTE | 2018-10-24 11:36 | Procedure Note ---
Angiogram Post Procedure Fluoroscopy Time (minutes): 0.8 Conscious Sedation Time (minutes): 23 Radiation (mGy): 82.91 Contrast: 22 Post Operative Report Pre & Post Diagnosis Operation Date: 10/23/18 08:20 Pre-Op Diagnosis: Ischemic Left Leg Post-Op Diagnosis: Ischemic Left Leg Operation Date: 10/24/18 10:00 Pre-Op Diagnosis: Thrombosed left superficial femoral artery Post-Op Diagnosis: Thrombosed left superficial femoral artery Procedure Operation Date: 10/23/18 08:20 Actual Procedures p Left Leg Arteriogram, Insertion of Infusion Catheter for Thrombolysis, Catheter Directed Thrombolysis, Moderate Concious Sedation 1212 to 1303.(Right) - Bhavin Ambriz MD Operation Date: 10/24/18 10:00 Actual Procedures p TPA recheck and Cessation Of Thrombolysis, Left Leg Angiogram, Mechanical Closure Right Femoral Artery, Moderate Concious Sedation 1108 to 1131(Right) - Bhavin Ambriz MD Surgeon Bhavin Ambriz MD Hides And Skins Colorer none Estimated Blood Loss 3 Findings Consistent with Post-Op Diagnosis Specimens None Anesthesia Type RN Sedation Complications none Disposition Accompanied Patient To Recovery: No Disposition: Surgical ICU Indications This is a 67-year-old gentleman who occluded his left superficial femoral artery popliteal artery stents. He underwent thrombolyzes during the evening. He is brought back now for recheck and possible intervention. He does have Doppler signals in his foot at this point. I have discussed the risks options and benefits of the procedure with the patient. The patient understands the risks options and benefits and agrees to the procedure. Description of Procedure Patient was taken to the angiogram suite placed in the supine position. Patient was identified a timeout was performed. The dressing was removed in the right groin and the catheter was prepped and draped in a sterile fashion. Wire was removed from the infusion catheter. Angiogram was done through the perfusion catheter which showed the stented area and runoff to be patent. We then inserted a an 035 Glidewire through the catheter and remove the infusion catheter. Arteriography left lower extremity done through the destination sheath showed the superficial femoral artery and popliteal be widely patent. The tibioperoneal trunk, posterior tibial and peroneal arteries are patent down to the foot. There is collateral flow to the dorsalis pedis from the peroneal artery seen. No evidence of stenosis or residual thrombus was seen throughout the left lower extremity. We then pulled the destination sheath over to the right side. An injection showed the puncture site in the right common femoral artery to be anterior in the common femoral artery. 035 wire was then left in the destination sheath. The destination sheath was pulled and a Star closure device was used to close the puncture in the right groin. Adequate hemostasis was noted.The patient left the operation room in satisfactory condition and tolerated the procedure well. All needle and sponge counts were correct at the end of the procedure. I attest to the content of the Intraoperative Record and any orders documented therein. Any exceptions are noted below.
--- NOTE | 2018-10-24 11:41 | Post Anesthesia Assessment ---
Date of Service October 24, 2018 Post Sedation Assessment Vital Signs Temp Pulse Pulse Resp BP BP BP 10/24/18 11:31 95 H 18 174/98 H 10/24/18 11:26 96 H 20 175/84 H 10/24/18 11:23 102 H 20 173/93 H 10/24/18 11:18 98 H 20 174/87 H 10/24/18 11:13 97 H 20 178/95 H 10/24/18 11:08 99 H 20 194/107 H 10/24/18 10:54 97 H 18 179/95 H 10/24/18 10:00 104 H 17 176/90 H 10/24/18 09:51 37.2 C 100 H 16 129/83 10/24/18 09:00 105 H 22 129/83 10/24/18 08:00 37.3 C 96 H 100 H 22 171/83 H 173/88 H 10/24/18 07:16 98 H 20 173/88 H 10/24/18 07:00 98 H 22 182/108 H 10/24/18 06:00 96 H 26 H 178/84 H 10/24/18 05:00 99 H 11 L 177/102 H 10/24/18 04:40 91 H 9 L 178/98 H 10/24/18 03:00 91 H 20 157/91 H 10/24/18 02:00 90 23 176/91 H 10/24/18 01:20 91 H 24 168/94 H 10/24/18 01:00 94 H 26 H 168/94 H 10/24/18 00:00 36.6 C 91 H 13 162/91 H 10/23/18 23:20 92 H 10/23/18 23:00 91 H 19 175/88 H 10/23/18 19:30 102 H 12 171/82 H 10/23/18 19:00 84 1 L 143/87 H 10/23/18 18:30 85 15 185/98 H 10/23/18 18:01 84 12 121/61 10/23/18 18:00 69 13 10/23/18 17:30 82 8 L 160/88 H 10/23/18 17:00 91 H 12 188/115 H 10/23/18 16:30 94 H 21 192/111 H 10/23/18 16:00 36.7 C 84 16 171/92 H 10/23/18 13:30 36.8 C 78 18 143/87 H 10/23/18 13:12 10/23/18 13:03 84 18 143/77 H 10/23/18 12:58 74 18 147/85 H 10/23/18 12:57 75 18 146/84 H 10/23/18 12:52 74 18 147/86 H 10/23/18 12:47 78 18 157/84 H 10/23/18 12:42 82 22 148/87 H 10/23/18 12:37 82 17 159/88 H 10/23/18 12:32 36.7 C 85 92 H 20 153/87 H 168/91 H 10/23/18 12:27 84 22 147/80 H 10/23/18 12:22 82 21 146/86 H 10/23/18 12:17 83 19 135/84 10/23/18 12:12 86 19 163/91 H 10/23/18 12:11 89 14 163/91 H Pulse Ox Pulse Ox 10/24/18 11:31 94 10/24/18 11:26 95 10/24/18 11:23 93 10/24/18 11:18 98 10/24/18 11:13 96 10/24/18 11:08 98 10/24/18 10:54 97 10/24/18 10:00 93 10/24/18 09:51 93 10/24/18 09:00 93 10/24/18 08:00 89 L 97 10/24/18 07:16 93 10/24/18 07:00 91 10/24/18 06:00 89 L 10/24/18 05:00 95 10/24/18 04:40 94 10/24/18 03:00 92 10/24/18 02:00 92 10/24/18 01:20 92 10/24/18 01:00 94 10/24/18 00:00 94 10/23/18 23:20 10/23/18 23:00 93 10/23/18 19:30 94 10/23/18 19:00 95 10/23/18 18:30 97 10/23/18 18:01 96 10/23/18 18:00 95 10/23/18 17:30 94 10/23/18 17:00 96 10/23/18 16:30 97 10/23/18 16:00 96 10/23/18 13:30 97 10/23/18 13:12 97 10/23/18 13:03 94 10/23/18 12:58 97 10/23/18 12:57 98 10/23/18 12:52 96 10/23/18 12:47 98 10/23/18 12:42 98 10/23/18 12:37 98 10/23/18 12:32 95 10/23/18 12:27 98 10/23/18 12:22 99 10/23/18 12:17 99 10/23/18 12:12 99 10/23/18 12:11 99 Recovery Score Activity: Moves 4 extremities Respiration: Deep Breath/Cough Circulation: +/-20% PreAnes Value Consciousness: Fully Awake Oxygen Saturation: > 92% On Room Air Post Anesthesia Score: 10 Discharge Sedation Level of Care: Fast Track Phase II Post Sedation Plan On clinical assessment, the patient appears to have tolerated the sedation without complications. Patient is recovering as anticipated. Patient will continue to be monitored by nursing and may be discharged when sedation discharge criteria are met per below protocol. Upon Completions of procedure and additional 15 minutes continue every 5 minute vital signs and the P.A.R. score; then discharge to a Phase I or Fast Track to Phase II per the following guidelines: * Discharge Patient to appropriate Phase II area if PAR is 8 or greater or return to pre- procedure baseline. The post - procedure orders will be as directed. * If PAR score is less than 8 or not return to pre-procedure baseline then patient will follow Phase I monitoring till PAR is reached for Phase II. The Phase I may be done in procedure room or may call to secure a Phase I area. * If naloxone or flumazenil are used for reversal, hold in Phase I for continued monitoring from when last reversal dose was given for a minimum of 60 minutes or longer pending the nurse and/or physician discretion of patient condition before discharge to Phase II. Please call the Sedation Physician to re-evaluate and complete post-note for discharge to Phase II area. Do NOT discharge from procedure sedation or Phase 1 until post- sedation evaluation note is complete by procedure /sedation MD Sedation Discharge Instructions to be given to the patient at discharge to home.
[2018-10-24] MEDS ORDERED: SODIUM CHLORIDE 0.9% 1000ML 1,000 ML IV SCH (11:46)
[2018-10-24] MEDS ORDERED: CLOPIDOGREL BISULFATE 300 MG TAB PO STA (11:46)
[2018-10-24] MEDS: NICOTINE 14 MG/24 HR PATCH TD SCH (11:47)
[2018-10-24] MEDS: ENALAPRIL MALEATE 10 MG TAB PO SCH (12:05)
[2018-10-24] MEDS: MAGNESIUM SULFATE / D5W 1 GM/100 ML BAG IV SCH ×2 (12:08→13:07)
--- NOTE | 2018-10-24 14:03 | Discharge Summary ---
Date of Service October 24, 2018 Admission HPI Per Admitting Provider 67-year-old male with past medical history of diabetes and extensive smoking history presents with left calf pain and left foot numbness/tingling/coldness starting this evening. On 09/18/2018 patient had left popliteal and superficial femoral artery stents put in by Dr. Ambriz. Patient was on Plavix for a month which he finished on , 4 days ago. This evening he went upstairs after which he felt a cramp in his left calf then his left foot felt numb followed by some tingling and coldness. He went to the shower and put some hot water on his foot but it did not recover and he came to the emergency room thinking he had a stroke. In the ED are arterial ultrasound found extensive left lower extremity arterial atherosclerosis and high-grade stenosis/near occlusion of L popliteal artery, calf vessels and dorsalis pedis. He was started on heparin drip. Social history: Smoking since age 16 initially 2 packs/day but over the last few years half a pack per day. Admission Exam Per Admitting Provider General: In NAD Neuro: A&O x 4 Pulm: CTAB equal breath sounds bilaterally CV: RRR, no m/r/g Abdomen:+BS, no TTP in all quadrants, non-distended Left LE: no LE edema, no calf TTP, posterior tibial and DP pulses 1+, L lower leg and L foot cold to touch compared to RLE Principal Diagnosis Left Lower Extremity Arterial Occlusion with ischemic limb Discharge Exam General: Resting comfortably HEENT: NC/AT; PERRLA with EOMI; [place] conjunctiva, MMM. No erythema of posterior pharynx Neck: Supple and nontender Cardiac: RRR Lungs: CTA bilaterally Abdomen: Bowel normoactive X 4; Nontender to palpation Extremities: Warm. No edema present. Palpable pulses on bilat LE. Neuro: No focal weakness Skin: No rash Discharge Data Allergies Allergy/AdvReac Type Severity Reaction Status Date / Time cat dander Allergy Unknown Verified 10/23/18 02:38 Consultations 10/23/18 02:17 ED Decision to Admit Stat 10/23/18 04:52 Consult Vascular Surgery Routine 10/23/18 14:03 Consult Wet Crown Blocking Operator Routine Procedures Performed Operation Date: 10/23/18 08:20 Actual Procedures p Left Leg Arteriogram, Insertion of Infusion Catheter for Thrombolysis, Catheter Directed Thrombolysis, Moderate Concious Sedation 1212 to 1303.(Right) - Bhavin Ambriz MD Operation Date: 10/24/18 10:00 Actual Procedures p TPA recheck and Cessation Of Thrombolysis, Left Leg Angiogram, Mechanical Closure Right Femoral Artery, Moderate Concious Sedation 1108 to 1131(Right) - Bhavin Ambriz MD Ordered Studies 10/23/18 00:11 US arterial duplex LE LT Urgent 10/23/18 09:00 EV angio LE LT Routine 10/24/18 08:00 EV angio LE LT Routine Hospital Course (1) Atherosclerosis of artery of left lower extremity: Presented with left calf pain and numbness of left foot; s/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 Arterial duplex showed extensive LLE arterial atherosclerosis, near occlusion of popliteal artery and calf vessels/dorsalis pedis artery. Started Heparin drip at admission. Received TPA infusion/catheter-directed thrombolysis in ICU per vascular surgery. Angio suite on 10/24, occlusion resolved with TPA infusion. Will start Plavix 75 mg daily and ASA 81 mg daily at discharge. Stable for discharge -- will need to follow up with vascular surgery as outpatient. (2) DM (diabetes mellitus): A1C was 7.0. SSI coverage as inpt. (3) HTN (hypertension): Continued home Enalapril 10 mg daily as prescribed. BP has been very uncontrolled, SBP 170-180's; pt. reports BP is usually elevated as inpt, will improve following discharge. Was asymptomatic. He also reported feeling very anxious, and perhaps some nicotine withdrawal was playing a role in his sinus tachycardia and hypertension during hospitalization (4) Tobacco abuse: Nicotine patch ordered. Encouraged tobacco cessation. following discharge-he is committed to doing so (5) DVT prophylaxis: Heparin drip. Also received TPA. Discharged to home on 10/24/18. Total Time Total Time Spent Total Time Spent (In Minutes): >30 minutes Total Time Includes: Examination of the Patient, Discharge Planning, Medication Reconciliation, Communication With Other Providers and Other Discharge Plan Discharge Items Patient Disposition: Home - Self-Care Reason For Visit: ARTERIAL OCCLUSION LLE Discharge Diagnosis: Left Lower Extremity Arterial Occlusion Condition: Good Discharge Goals: Decrease discomfort, Improve disease control, Improve function, Increase independence and Prevent disease Activity: As commented below Exercise/Sports: Wait until after follow-up appointment Non-emergency contact: Primary Care Provider and Surgeon Call non-emergency contact if: you have any medication questions, your symptoms worsen, your pain is not controlled, your pain is worsening, your pain is unusual for you, your pain is concerning for you, you have a fever, your wound has increased redness, your wound has increased drainage and your wound pain has increased Follow-up/Referrals: Red Fraire MD [Primary Care Provider] - Diet: Carb Consistent or DM2 and Heart Healthy Addtl Provider Instructions: 1. LLE Occlusion * Please take Plavix 75 mg daily. * You will need to follow up with Dr. Ambriz as an outpatient for further evaluation. 2. Hypertension * Please continue Enalapril 10 mg daily. * Please discuss HTN management with your PCP as an outpatient -- BP has been high during this admission. 3. Tobacco abuse * Please discontinue use of all tobacco containing products. 4. Please schedule an appointment with your PCP in 1-2 weeks to discuss this admission. Prescriptions: New clopidogrel 75 mg Tablet 75 mg PO QAM 30 Days Qty: 30 RF: 0 Continued pioglitazone-metformin 15-850 mg tablet 1 tab PO BID RF: 0 enalapril maleate 10 mg Tablet 10 mg PO DAILY RF: 0 gemfibrozil 600 mg Tablet 600 mg PO BID RF: 0 glimepiride 4 mg Tablet 4 mg PO BID RF: 0 Visit Report Forms: Smoking Cessation Stand-Alone Forms: [facility]/Other Patient Handouts: Clopidogrel Bisulfate Oral tablet, Ischemia Critical Limb, Occlusion Acute Arterial Discharge Orders: Discharge Order (Routine); Ordered 10/24/18 Ordered By: Wendie Lassiter Admission Data Admit Date/Time: 10/23/18 03:15 Attending Provider: Wendie Lassiter Admit Provider: Darío Atkins Primary Care Provider: Red Fraire Other Providers: Darío Atkins ; Bhavin Ambriz ; Darryl Melgar Service: Intensive Care Unit Other Interventions: Discharge Summary Assessment (RN) Last Done: 10/24/18 15:45 Pending Studies at Discharge: No DC Date/Time DO NOT enter until pt leaves facility: 10/24/18 16:18 Supervising Physician Co-Signing Physician Notes PA Supervision Note: I personally saw and examined the patient. I verified all amos points and agree with ASTRID Quiroga with the following exceptions and/or additions: Pt feeling much better, no pain in the left LE or foot. Denies CP or SOB over his usual. Is committed to quitting smoking. Discussed care with Vascular Surgery PA-stable for dc Vitals reviewed-mild ST, elevated BPs Reg rhythm, mild tachycardia, no mgr CTAB no wcr Abd soft NT ND Ext Left foot with good cap refill, barely palpable DP pulse, sensation intact to lt touch Skin-no rashes or erythema
[2018-10-24] MEDS ORDERED: GLIMEPIRIDE 2 MG TAB PO SCH (21:00)
[2018-10-24] MEDS ORDERED: GEMFIBROZIL 600 MG TAB PO SCH (21:00)
[2018-10-25] MEDS ORDERED: CLOPIDOGREL BISULFATE 75 MG TAB PO SCH (09:00)
== END 2018-10-24 16:18 | disposition home or self-care (01) | DRG 271 ==
LOC: ED 23:52 → 2N 10-23 03:15 → SUATTDRO 10-23 03:15 → 2N 10-23 04:18 → 1E 10-23 13:51

== ENCOUNTER 2021-07-08 17:48 | Inpatient (IN) ==
[2021-07-08 19:33] LABS: Partial Thromboplastin Ratio 0.7; Prothrombin Time 11.1 Seconds (9.0-12.0)
[2021-07-08] MEDS ORDERED: LORazepam 2 MG/1 ML VIAL IV STA (19:36)
[2021-07-08] MEDS ORDERED: ASPIRIN CHEW 324 MG PO STA (19:36)
--- NOTE | 2021-07-08 19:38 | Emergency Department Note ---
Impression & Plan Chest pain, GIB (gastrointestinal bleeding), Anemia, Elevated troponin I level ED Provider Note NAME: ELLEN PELAEZ AGE: 70 SEX: M : 1950 ARRIVES VIA: Walk-In INFORMANT: Patient, ED PROVIDER(S): Feliz Rubi DO CHIEF COMPLAINT: Chest pain HPI: The patient is a 70-year-old male who presented to the emergency department for an evaluation of chest pain. The patient states that he has a history of diabetes. He states he has been having symptoms for approximately 1 week. The patient initially thought it was his anxiety. He was started on medication for anxiety. He states the chest pain is intense and heavy. It can come on at rest or with exertion. He has never had similar symptoms in the past. He does have a history of atherosclerosis of the lower extremity. He does continue to use tobacco products. He denies having any abdominal pain. He denies having any back pain. He denies having any numbness in his arms or legs. He does complain of lower extremity edema which is not new. He states that this time he does not have the chest pain. The patient told his family doctor if symptoms are wors ening he was referred to the emergency department for further evaluation. ROS: See above HPI for pertinent positives & negatives. A total of 10 systems reviewed and were otherwise negative. PAST MEDICAL HISTORY: See Below PAST SURGICAL HISTORY: See Below FAMILY HISTORY: See Below SOCIAL HISTORY: See Below HOME MEDICATIONS: See Below ALLERGIES: See Below VITALS: See Below PHYSICAL EXAMINATION: GENERAL: Patient is awake alert in no acute distress patient is resting co mfortably and showing no signs of anxiety EYES: The conjunctivae are clear. The pupils are round and reactive. EARS, NOSE, MOUTH AND THROAT: The nose is without any evidence of any deformity. Mucous membranes are moist. Tongue is midline. NECK: The neck is nontender and supple. RESPIRATORY: Scattered rhonchi were noted throughout both lungs. There is no tachypnea or conversational dyspnea. CARDIOVASCULAR: Regular rate and rhythm noted there no murmurs rubs or gallops normal S1 normal S2. GASTROINTESTINAL: The abdomen is soft. Abdomen is nontender. MUSCULOSKELETAL/EXTREMITIES: There is no evidence of gross deformity full range of motion is noted in the hips and shoulders. SKIN: Pedal edema was noted bilaterally. Skin was warm and dry. NEUROLOGIC: Patient is awake alert and oriented x3 MEDICAL DECISION MAKING: The patient is a 70-year-old male who presented to the emergency department for an evaluation of chest pain. The patient was found to have an abnormal EKG. The patient's troponin was also elevated. His EKG changes were felt to be consistent with his previous EKG when a previous EKG was finally located. He also was found to have anemia. He also had heme positive stool. Its possible the patient is having ischemia secondary to anemia. He was feeling better at rest. I discussed patient's laboratory and radiographic studies with him. I also discussed his [facility] They have agreed to evaluate the patient in the emergency department for further management and disposition. Triage Nursing notes reviewed. Prior medical records reviewed Vital Signs: reviewed and remarkable for tachycardia and elevated blood pressure. Differential diagnosis: Cardiac ischemia, aortic dissection, pulmonary embolism, pneumothorax, pneumonia, pericarditis, myocarditis, esophageal rupture, GERD, cholecystitis, pancreatitis, musculoskeletal, as well as other pathologies. EKG was obtained in the emergency department. My interpretation is sinus rhythm at 98 bpm. ER treatment provided: See below Diagnostics interpreted by me: ECG: No PVCs were noted. Nonspecific lateral ST depressions with T wave merges were noted. This EKG was compared to a tracing from May 14, 2021. A similar pattern of ST segment and T wave abnormalities were appreciated. Cardiac Monitoring: An order was placed for continuous cardiac monitoring. The monitor shows a rate of 99 bpm with sinus rhythm. Laboratory studies: As stated above and show below. Imaging studies: See below Consultation(s): Discussed this case with Dr. Crabtree who is [facility]. Past Med/Surg History Medical History Diabetes mellitus Surgical History History of cataract extraction History of eye surgery retina History of left knee surgery Social History Smoking Status: Current every day smoker Tobacco Type: Cigarettes Second Hand Exposure: No; Hx Alcohol Use: No Hx Substance Use: No Preferred Language: Ukrainian Communication Ability: Effective Clinical Nursing Assistant Required: No Beliefs That Will Affect Care: None Current Living Situation: Alone Feels Safe at Home: Yes Assistive Devices: Glasses Allergies Allergies Allergy/AdvReac Type Severity Reaction Status Date / Time cat dander Allergy Intermediate CONGESTION Verified 07/08/21 20:10 Home Meds Home Medications Medication Instructions Recorded Confirmed enalapril maleate 10 mg tablet 10 mg PO DAILY 09/15/18 07/08/21 aspirin 81 mg tablet,delayed 81 mg PO DAILY 05/15/19 07/08/21 release (Aspirin Low Dose) atorvastatin 80 mg tablet 80 mg PO DAILY 05/15/19 07/08/21 clopidogrel 75 mg tablet 75 mg PO DAILY 05/15/19 07/08/21 pioglitazone 15 mg-metformin 850 1 tab PO DAILY 05/15/19 07/08/21 mg tablet alprazolam 0.5 mg tablet 0.5 mg PO DAILY PRN 07/08/21 07/08/21 glipizide 10 mg tablet 10 mg PO DAILY 07/08/21 07/08/21 omeprazole 20 mg tablet,delayed 20 mg PO DAILY 07/08/21 07/08/21 release sildenafil 100 mg tablet 100 mg PO DAILY PRN 07/08/21 07/08/21 Results & Data (ED) Vital Signs Vital Signs - 24 hr 07/08/21 17:59 07/08/21 19:41 07/08/21 19:45 Temperature 36.8 C Temperature Source Oral Pulse Rate 107 H 94 H 99 H Pulse Rate [Apical] Pulse Rate from SpO2 Sensor 93 H 99 H Pulse Rhythm Regular Pulse Strength Normal Respiratory Rate 22 19 23 Respiratory Effort / Characteristics Non-Labored Spontaneous Respiratory Depth Normal Respiratory Pattern Regular Blood Pressure 187/98 H Blood Pressure [Right Arm] Blood Pressure Mean 127 Blood Pressure Mean [Right Arm] Blood Pressure Position Sitting Pulse Oximetry 96 96 98 Oxygen Delivery Method Room Air Sepsis Recent Fever Within 48 Hours No Sepsis New/Unexplained Change in Mental Status No Sepsis Action Taken by Nursing No Action Required 07/08/21 20:00 07/08/21 20:08 07/08/21 20:15 Temperature Temperature Source Pulse Rate 98 H 95 H 97 H Pulse Rate [Apical] 95 H Pulse Rate from SpO2 Sensor 97 H Pulse Rhythm Pulse Strength Respiratory Rate 25 H 22 20 Respiratory Effort / Characteristics Respiratory Depth Respiratory Pattern Blood Pressure 183/106 H 190/106 H Blood Pressure [Right Arm] 190/106 H Blood Pressure Mean 131 134 Blood Pressure Mean [Right Arm] 134 Blood Pressure Position Pulse Oximetry 95 97 Oxygen Delivery Method Room Air Sepsis Recent Fever Within 48 Hours Sepsis New/Unexplained Change in Mental Status Sepsis Action Taken by Nursing 07/08/21 20:30 07/08/21 20:45 07/08/21 21:00 Temperature Temperature Source Pulse Rate 102 H 107 H 96 H Pulse Rate [Apical] Pulse Rate from SpO2 Sensor 102 H 106 H 95 H Pulse Rhythm Pulse Strength Respiratory Rate 23 18 30 H Respiratory Effort / Characteristics Respiratory Depth Respiratory Pattern Blood Pressure 179/124 H 206/120 H Blood Pressure [Right Arm] Blood Pressure Mean 142 148 Blood Pressure Mean [Right Arm] Blood Pressure Position Pulse Oximetry 93 99 97 Oxygen Delivery Method Sepsis Recent Fever Within 48 Hours Sepsis New/Unexplained Change in Mental Status Sepsis Action Taken by Nursing 07/08/21 21:15 07/08/21 21:27 07/08/21 21:30 Temperature Temperature Source Pulse Rate 102 H 98 H 101 H Pulse Rate [Apical] Pulse Rate from SpO2 Sensor 102 H Pulse Rhythm Regular Pulse Strength Respiratory Rate 31 H 24 35 H Respiratory Effort / Characteristics Respiratory Depth Respiratory Pattern Blood Pressure Blood Pressure [Right Arm] Blood Pressure Mean Blood Pressure Mean [Right Arm] Blood Pressure Position Pulse Oximetry 97 95 Oxygen Delivery Method Room Air Sepsis Recent Fever Within 48 Hours Sepsis New/Unexplained Change in Mental Status Sepsis Action Taken by Nursing 07/08/21 21:31 07/08/21 21:40 07/08/21 21:45 Temperature Temperature Source Pulse Rate 100 H 97 H Pulse Rate [Apical] 92 H Pulse Rate from SpO2 Sensor 99 H 101 H Pulse Rhythm Pulse Strength Respiratory Rate 32 H 22 30 H Respiratory Effort / Characteristics Respiratory Depth Respiratory Pattern Blood Pressure 179/95 H Blood Pressure [Right Arm] 179/95 H Blood Pressure Mean 123 Blood Pressure Mean [Right Arm] 123 Blood Pressure Position Pulse Oximetry 97 93 94 Oxygen Delivery Method Room Air Sepsis Recent Fever Within 48 Hours Sepsis New/Unexplained Change in Mental Status Sepsis Action Taken by Nursing 07/08/21 21:58 07/08/21 22:00 07/08/21 22:15 Temperature Temperature Source Pulse Rate 94 H 96 H 99 H Pulse Rate [Apical] Pulse Rate from SpO2 Sensor 93 H 96 H 99 H Pulse Rhythm Pulse Strength Respiratory Rate 21 17 25 H Respiratory Effort / Characteristics Respiratory Depth Respiratory Pattern Blood Pressure 177/108 H 178/135 H Blood Pressure [Right Arm] Blood Pressure Mean 131 149 Blood Pressure Mean [Right Arm] Blood Pressure Position Pulse Oximetry 96 97 93 Oxygen Delivery Method Sepsis Recent Fever Within 48 Hours Sepsis New/Unexplained Change in Mental Status Sepsis Action Taken by Nursing 07/08/21 22:37 Temperature Temperature Source Pulse Rate Pulse Rate [Apical] Pulse Rate from SpO2 Sensor 99 H Pulse Rhythm Pulse Strength Respiratory Rate Respiratory Effort / Characteristics Respiratory Depth Respiratory Pattern Blood Pressure Blood Pressure [Right Arm] Blood Pressure Mean Blood Pressure Mean [Right Arm] Blood Pressure Position Pulse Oximetry 98 Oxygen Delivery Method Sepsis Recent Fever Within 48 Hours Sepsis New/Unexplained Change in Mental Status Sepsis Action Taken by Care Home Medications Current Medication List: was personally reviewed by me Laboratory Data Attestation: I reviewed the patient's lab results. Result diagrams: 07/08/21 18:48 07/08/21 18:48 Lab Results 07/08/21 07/08/21 07/08/21 Range/Units 18:48 18:48 18:48 WBC 7.34 (4.8-10.8) K/uL RBC 4.09 L (4.7-6.1) M/uL Hgb 8.5 L (14.0-18.0) g/dL Hct 29.1 L (42-52) % MCV 71.1 L (80-100) fL MCH 20.8 L (25-34) pg MCHC 29.2 L (32-36) g/dL RDW Std Deviation 42.7 (36.4-46.3) fL RDW Coeff of Josh 16.2 H (11.5-14.5) % Plt Count 214 (130-400) K/uL Immature Gran % (Auto) 0.1 % Neut % (Auto) 70.9 % Lymph % (Auto) 16.3 % [place] % (Auto) 9.7 % Eos % (Auto) 2.7 % Baso % (Auto) 0.3 % Neut # (Auto) 5.20 (1.4-6.5) K/uL Lymph # (Auto) 1.20 (1.2-3.4) K/uL [place] # (Auto) 0.71 H (0.11-0.59) K/uL Eos # (Auto) 0.20 (0-0.5) K/uL Baso # (Auto) 0.02 (0-0.2) K/uL Immature Gran # (Auto) 0.01 (0.00-0.02) K/uL Hypochromasia Present Microcytosis Present PT 11.1 (9.0-12.0) Seconds INR 1.0 (0.9-1.1) APTT 20.0 L (21.0-31.0) Seconds PTT Ratio 0.7 Sodium 136 (136-145) mmol/L Potassium 4.6 (3.5-5.1) mmol/L Chloride 104 (98-107) mmol/L Carbon Dioxide 25 (21-32) mmol/L Anion Gap 7 (3-11) BUN 18 (6-23) mg/dl Creatinine 1.20 (0.6-1.4) mg/dl Est Cr Clr Drug Dosing 76.9 ml/min Est GFR ( Amer) 71.1 ml/min Est GFR (Non-Af Amer) 61.3 ml/min BUN/Creatinine Ratio 15.0 (10-20) Glucose 244 H (70-99(Fasting)) mg/dl Calcium 8.7 (8.5-10.1) mg/dl Magnesium 1.7 (1.7-2.4) mg/dl Total Bilirubin 0.5 (0.2-1.0) mg/dl AST 19 (13-39) U/L ALT 14 (7-52) U/L Alkaline Phosphatase 98 (34-104) U/L Troponin I High Sens (0-20) pg/ml Total Protein 7.5 (6.0-8.3) gm/dl Albumin 3.8 (3.4-5.0) gm/dl Globulin 3.7 (2.5-4.0) gm/dl Albumin/Globulin Ratio 1.0 (0.9-2) Lipase (11-82) U/L SARS-CoV-2, RNA, NAAT (NEGATIVE) Blood Type Antibody Screen Crossmatch 07/08/21 07/08/21 07/08/21 Range/Units 18:48 18:48 21:13 WBC (4.8-10.8) K/uL RBC (4.7-6.1) M/uL Hgb (14.0-18.0) g/dL Hct (42-52) % MCV (80-100) fL MCH (25-34) pg MCHC (32-36) g/dL RDW Std Deviation (36.4-46.3) fL RDW Coeff of Josh (11.5-14.5) % Plt Count (130-400) K/uL Immature Gran % (Auto) % Neut % (Auto) % Lymph % (Auto) % [place] % (Auto) % Eos % (Auto) % Baso % (Auto) % Neut # (Auto) (1.4-6.5) K/uL Lymph # (Auto) (1.2-3.4) K/uL [place] # (Auto) (0.11-0.59) K/uL Eos # (Auto) (0-0.5) K/uL Baso # (Auto) (0-0.2) K/uL Immature Gran # (Auto) (0.00-0.02) K/uL Hypochromasia Microcytosis PT (9.0-12.0) Seconds INR (0.9-1.1) APTT (21.0-31.0) Seconds PTT Ratio Sodium (136-145) mmol/L Potassium (3.5-5.1) mmol/L Chloride (98-107) mmol/L Carbon Dioxide (21-32) mmol/L Anion Gap (3-11) BUN (6-23) mg/dl Creatinine (0.6-1.4) mg/dl Est Cr Clr Drug Dosing ml/min Est GFR ( Amer) ml/min Est GFR (Non-Af Amer) ml/min BUN/Creatinine Ratio (10-20) Glucose (70-99(Fasting)) mg/dl Calcium (8.5-10.1) mg/dl Magnesium (1.7-2.4) mg/dl Total Bilirubin (0.2-1.0) mg/dl AST (13-39) U/L ALT (7-52) U/L Alkaline Phosphatase (34-104) U/L Troponin I High Sens 67.3 H* (0-20) pg/ml Total Protein (6.0-8.3) gm/dl Albumin (3.4-5.0) gm/dl Globulin (2.5-4.0) gm/dl Albumin/Globulin Ratio (0.9-2) Lipase 29 (11-82) U/L SARS-CoV-2, RNA, NAAT (NEGATIVE) Blood Type A Positive Antibody Screen POSITIVE A Crossmatch See Detail 07/08/21 Range/Units Unknown WBC (4.8-10.8) K/uL RBC (4.7-6.1) M/uL Hgb (14.0-18.0) g/dL Hct (42-52) % MCV (80-100) fL MCH (25-34) pg MCHC (32-36) g/dL RDW Std Deviation (36.4-46.3) fL RDW Coeff of Josh (11.5-14.5) % Plt Count (130-400) K/uL Immature Gran % (Auto) % Neut % (Auto) % Lymph % (Auto) % [place] % (Auto) % Eos % (Auto) % Baso % (Auto) % Neut # (Auto) (1.4-6.5) K/uL Lymph # (Auto) (1.2-3.4) K/uL [place] # (Auto) (0.11-0.59) K/uL Eos # (Auto) (0-0.5) K/uL Baso # (Auto) (0-0.2) K/uL Immature Gran # (Auto) (0.00-0.02) K/uL Hypochromasia Microcytosis PT (9.0-12.0) Seconds INR (0.9-1.1) APTT (21.0-31.0) Seconds PTT Ratio Sodium (136-145) mmol/L Potassium (3.5-5.1) mmol/L Chloride (98-107) mmol/L Carbon Dioxide (21-32) mmol/L Anion Gap (3-11) BUN (6-23) mg/dl Creatinine (0.6-1.4) mg/dl Est Cr Clr Drug Dosing ml/min Est GFR ( Amer) ml/min Est GFR (Non-Af Amer) ml/min BUN/Creatinine Ratio (10-20) Glucose (70-99(Fasting)) mg/dl Calcium (8.5-10.1) mg/dl Magnesium (1.7-2.4) mg/dl Total Bilirubin (0.2-1.0) mg/dl AST (13-39) U/L ALT (7-52) U/L Alkaline Phosphatase (34-104) U/L Troponin I High Sens (0-20) pg/ml Total Protein (6.0-8.3) gm/dl Albumin (3.4-5.0) gm/dl Globulin (2.5-4.0) gm/dl Albumin/Globulin Ratio (0.9-2) Lipase (11-82) U/L SARS-CoV-2, RNA, NAAT NEGATIVE (NEGATIVE) Blood Type Antibody Screen Crossmatch Administered Medications Pantoprazole Sodium 40 mg/ (Syringe) 10 mls @ 5 mls/min IV BID [place] Stop: 08/07/21 21:39 Last Admin: 07/08/21 22:18 Dose: 5 mls/min Documented by: [id number] Insulin Aspart (Insulin Aspart Per Unit) 0 units SC ACHS [place] Stop: 08/07/21 21:39 Last Admin: 07/08/21 22:16 Dose: 2 units Documented by: [id number] Cosigned by: [id number] Discontinued Medications Aspirin (Aspirin Chew 324 Mg) 324 mg PO NOW STA Stop: 07/08/21 19:37 Last Admin: 07/08/21 19:50 Dose: 324 mg Documented by: [id number] Furosemide (Furosemide 40 Mg/4 Ml Vial) 40 mg IV ONE ONE Stop: 07/08/21 21:41 Last Admin: 07/08/21 21:52 Dose: 40 mg Documented by: [id number] Lorazepam (Lorazepam 2 Mg/1 Ml Vial) 0.5 mg IV NOW STA Stop: 07/08/21 19:37 Last Admin: 07/08/21 19:50 Dose: 0.5 mg Documented by: [id number] Imaging Data Radiologist's Impression: Chest X-Ray 07/08/21 18:04 SINGLE VIEW CHEST CLINICAL HISTORY: Dyspnea. FINDINGS: An AP, portable, upright chest radiograph is obtained. No prior studies are available for comparison at the time of dictation. The examination is degraded by portable technique and apical lordotic positioning. The heart is enlarged noting atherosclerotic calcification of the thoracic aorta. There is pulmonary vascular congestion. Atelectasis is noted at the lung bases. No airspace consolidation or large pleural effusion is identified. No pneumothorax is seen. The skeletal structures are osteopenic. There are healed right posterior rib fractures. IMPRESSION: Cardiomegaly with pulmonary vascular congestion. ACT 112: Negative or not required by law. Electronically signed by: Amarjit Holt M.D. 07/08/2021 8:02 PM Discharge Plan Visit Data Chief Complaint: Referred by Doctor Stated Complaint: DR DOVE SENT, ANXIETY, CHEST PAIN, SOB, ED Provider: Feliz Rubi Discharge Problem: Chest pain, GIB (gastrointestinal bleeding), Anemia, Elevated troponin I level Patient Disposition: Being Evaluated by Hospitalist Discharge Instructions Interventions: ED Discharge Assessment Last Done: 07/08/21 22:52 Forms Stand Alone Forms: My [facility] [employer] Prescriptions Prescriptions: No Action enalapril maleate 10 mg Tablet 10 mg PO DAILY RF: 0 atorvastatin 80 mg tablet 80 mg PO DAILY RF: 0 clopidogrel 75 mg tablet 75 mg PO DAILY RF: 0 aspirin [Aspirin Low Dose] 81 mg Tablet,Delayed Release (Dr/Ec) 81 mg PO DAILY RF: 0 pioglitazone-metformin 15-850 mg tablet 1 tab PO DAILY RF: 0 glipizide 10 mg tablet 10 mg PO DAILY RF: 0 sildenafil 100 mg tablet 100 mg PO DAILY PRN (Reason: Erectile Dysfunction) RF: 0 alprazolam 0.5 mg tablet 0.5 mg PO DAILY PRN (Reason: Anxiety) RF: 0 omeprazole 20 mg Tablet,Delayed Release (Dr/Ec) 20 mg PO DAILY RF: 0 Referrals Referrals: Red Dove MD [Primary Care Provider] -
[2021-07-08 19:44] LABS: Albumin Level 3.8 gm/dl (3.4-5.0); Bilirubin,Total 0.5 mg/dl (0.2-1.0); Calcium 8.7 mg/dl (8.5-10.1); Creatinine Clr Calc Pharmacy 76.9 ml/min; Est GFR (African American) 71.1 ml/min; Est GFR (Non-African American) 61.3 ml/min; Globulin 3.7 gm/dl (2.5-4.0); Magnesium 1.7 mg/dl (1.7-2.4); Potassium 4.6 mmol/L (3.5-5.1); Total Protein 7.5 gm/dl (6.0-8.3)
[2021-07-08 19:54] LABS: Basophils # (auto) 0.02 K/uL (0-0.2); Basophils % (auto) 0.3 %; Eosinophils % (auto) 2.7 %; Hematocrit (blood only) 29.1 % (42-52); Hemoglobin 8.5 g/dL (14.0-18.0); Immature Granulocytes # (auto) 0.01 K/uL (0.00-0.02); Immature Granulocytes % (auto) 0.1 %; Lymphocytes % (auto) 16.3 %; Mean Corpuscular Hemoglobin 20.8 pg (25-34); Mean Corpuscular Hgb Conc 29.2 g/dL (32-36); Mean Corpuscular Volume 71.1 fL (80-100); Monocytes # (auto) 0.71 K/uL (0.11-0.59); Monocytes % (auto) 9.7 %; Neutrophils % (auto) 70.9 %; Platelet Count 214 K/uL (130-400); RDW Coefficient of Variation 16.2 % (11.5-14.5); RDW Standard Deviation 42.7 fL (36.4-46.3); Red Blood Count 4.09 M/uL (4.7-6.1); White Blood Count 7.34 K/uL (4.8-10.8)
--- NOTE | 2021-07-08 20:03 | XRay Report ---
SINGLE VIEW CHEST CLINICAL HISTORY: Dyspnea. FINDINGS: An AP, portable, upright chest radiograph is obtained. No prior studies are available for c omparison at the time of dictation. The examination is degraded by portable technique and apical lord otic positioning. The heart is enlarged noting atherosclerotic calcification of the thoracic aorta. T here is pulmonary vascular congestion. Atelectasis is noted at the lung bases. No airspace consolidat ion or large pleural effusion is identified. No pneumothorax is seen. The skeletal structures are ost eopenic. There are healed right posterior rib fractures. IMPRESSION: Cardiomegaly with pulmonary vascular congestion. ACT 112: Negative or not required by law. Electronically signed by: Amarjit Holt M.D. 07/08/2021 8:02 PM
[2021-07-08 20:16] LABS: Hypochromasia Present; Microcytosis Present
--- NOTE | 2021-07-08 20:39 | History & Physical Report ---
Date of Service July 08, 2021 Assessment & Plan (1) GIB (gastrointestinal bleeding): (2) Anemia: (3) Chest pain: (4) Elevated troponin I level: (5) Tobacco abuse: (6) HTN (hypertension): (7) DM (diabetes mellitus): Plan: 70 yo M history of tobacco use disorder, hypertension, peripheral arterial disease, type 2 diabetes, recent diagnosis of iron deficiency anemia admitted for acute blood loss anemia, associated demand ischemia, and concerns for CHF. Acute blood loss, Microcytic anemia: Hgb 8.5 today with microcytic MCV. Recent diagnosis of iron deficiency anemia in PCP office. Hemoccult trace positive in ER with brown stool. Per outside EMR; 07/02/2021 iron studies with low iron (23) and Fe sat (5%), elevated TIBC and transferrin. Prescribed oral iron sulfate at that time. GI consulted for consideration of colonoscopy. N.p.o. at midnight for this p ossibility. Protonix 40 mg IV twice daily. Goal Hgb >10 given evidence of end-organ damage as described below. Will transfuse 2U PRBCs (each over 4 hours given evidence of fluid overload). Demand ischemia, suspected CHF: Presented to the ER for several episodes of chest pain and orthopnea over the last 5 days. Troponin on admission 67.3, will repeat q6h. Will not give aspirin or Plavix, nor start Heparin gtt given acute GI bleed. Consider addition of aspirin/Plavix based on evaluation of GI bleed. We will hold VALERIE inhibitor and addition of beta-claudia in the setting of acute GI bleed; however patient should be on these for CAD. Suspect demand ischemia from GI bleeding, however patient does have history of PAD which suggests vascular disease in other locations. Continue atorvastatin 80mg daily. A1c pending. Echo ordered. Will give Lasix 40mg IV x1 given orthopnea, CXR with pulmonary vascular congestion. Consider repeat doses based on respiratory status and signs of fluid overload. Advocated strongly for smoking cessation and offered nicotine patches; patient amenable. Cardiology consulted. DM2: A1c ordered with a.m. labs. Given n.p.o. status will use q6h sliding scale insulin with addition of bolus when patient is no longer n.p.o. Diabetic diet when no longer NPO. Anxiety: Continue home alprazolam 0.5 mg daily as needed for anxiety. Patient would benefit from daily anxiolytic such as SSRI; will defer to PCP. CODE STATUS: Full code FEN: N.p.o. DVT prophylaxis: SCDs; defer chemoprophylaxis in the setting of acute GI bleed Disposition: Telemetry for cardiac monitoring given NSTEMI and acute GI bleeding History of Present Illness Chief Complaint: dyspnea, low blood count Primary Care Provider: Red Fraire MD 70 yo M history of tobacco use disorder, hypertension, peripheral arterial disease, type 2 diabetes, recent diagnosis of iron deficiency anemia presented to the ER for shortness of breath worsening over the last several days and specifically worst with lying flat, as well as several episodes of chest pain (no active chest pain when evaluated by ER provider or by myself). In the ER patient was noted to be saturating well on room air, mildly tachycardic, elevated blood pressure to 200s/100s. Lab work notable for hemoglobin 8.5 with microcytic MCV; decreased compared to outside records of hemoglobin 9.0 in April 2021. High-sensitivity troponin is 67.3. Chest x-ray showed cardiomegaly with pulmonary vascular congestion. Given low hemoglobin, Hemoccult was done by ER provider which was trace positive with brown stool. EKG done with nonspecific lateral ST depressions with T wave changes, similar to previous EKG in April 2021 from outside EMR.Hospitalist service was consulted for blood loss anemia from suspected GI source, as well as NSTEMI. Allergies Allergy/AdvReac Type Severity Reaction Status Date / Time cat dander Allergy Intermediate CONGESTION Verified 07/08/21 20:10 Home Medications Medication Instructions Recorded Confirmed Type enalapril maleate 10 mg tablet 10 mg PO DAILY 09/15/18 07/08/21 History aspirin 81 mg tablet,delayed 81 mg PO DAILY 05/15/19 07/08/21 History release (Aspirin Low Dose) atorvastatin 80 mg tablet 80 mg PO DAILY 05/15/19 07/08/21 History clopidogrel 75 mg tablet 75 mg PO DAILY 05/15/19 07/08/21 History pioglitazone 15 mg-metformin 850 1 tab PO DAILY 05/15/19 07/08/21 History mg tablet alprazolam 0.5 mg tablet 0.5 mg PO DAILY PRN 07/08/21 07/08/21 History glipizide 10 mg tablet 10 mg PO DAILY 07/08/21 07/08/21 History omeprazole 20 mg tablet,delayed 20 mg PO DAILY 07/08/21 07/08/21 History release sildenafil 100 mg tablet 100 mg PO DAILY PRN 07/08/21 07/08/21 History Past Med/Surg History Medical History Anemia Arterial occlusion, lower extremity Atherosclerosis of artery of left lower extremity HTN (hypertension) Tobacco abuse Type 2 diabetes mellitus Surgical History History of cataract extraction History of eye surgery retina History of left knee surgery Social History Smoking Status: Current every day smoker Tobacco Type: Cigarettes Cigarettes Per Day: 10; Second Hand Exposure: No; Do You Dip or Chew Tobacco: No; Tobacco Cessation Education Requested by Patient: No Hx Alcohol Use: No Hx Substance Use: No Preferred Language: Malaysian Communication Ability: Effective Hot Kettle Tender Required: No Beliefs That Will Affect Care: None Current Living Situation: Alone How many Children do You have: 1 Other Information That Helps Us Care for You: No Feels Safe at Home: Yes Safety Concerns: Feels Safe At This Time Assistive Devices: None Review of Systems Review of Systems: All systems reviewed & are unremarkable except as noted in HPI & below Constitutional: no fever, no chills and no malaise Respiratory: + dyspnea; no cough Cardiovascular: no chest pain, no palpitations and no edema Gastrointestinal: no abdominal pain, no constipation and no diarrhea/loose stools Physical Exam Constitutional: WD/WN, vitals as above Eyes: PERRL, conjunctivae normal, anicteric sclerae ENMT: external ear and nose normal, oropharynx normal Neck: normal visual inspection Respiratory: Intermittent wheezing diffusely, crackles in bilateral lung bases Cardiovascular: RRR no murmurs, 2+ pitting edema to hips bilaterally Gastrointestinal (Abdomen): normal bowel sounds, soft, nontender, no hepatosplenomegaly Musculoskeletal: no cyanosis or clubbing, extremities motor strength 5/5 Skin: no rashes, warm and dry Neurologic: AAOx3, normal speech. PERRLA, EOMI, no nystagmus. Normal visual acuity bilaterally. Bilateral UE, LE, and face without sensory or motor deficits. No pronator drift. No tremor. No ataxia. Psychiatric: A+Ox3, euthymic affect Results & Data Results & Data ([facility]) Vital Signs (Past 12 Hours) Vital Signs Temp Pulse Pulse Resp BP BP Pulse Ox 07/08/21 20:08 95 H 24 190/106 H 95 07/08/21 17:59 36.8 C 107 H 22 187/98 H 96 Supervising Physician Co-Signing Physician Notes Attending addendum: I have physically seen this patient, have supervised the medical residents activities, and agree with the H&P unless as otherwise noted. Assessment and Plan: GI bleed/acute blood loss anemia- Hemoglobin decreased from 12.4 recently to 8.5 upon admission today N.p.o. except essential medications Protonix 40 mg IV twice daily H&H every 6 hours Target hemoglobin 10 due to end organ issues with NSTEMI and CHF transfused 2 units PRBCs NSTEMI/CHF- The patient will be admitted to telemetry for serial cardiac enzymes, serial EKG's, cardiac rhythm monitoring and a 2-D echocardiogram with Dopplers. Troponin 67.3 upon admission Lasix 40 mg IV in the ED now. Likely element of high-output CHF. May require additional Lasix Cardiology consult Tobacco cessation counseling Remaining orders and notations as noted Resident Activity Tracking Resident Involvement: Resident Care Provided Care Provided: Adult Hospital Medicine (1) GIB (gastrointestinal bleeding) GI bleed type/associated pathology: unspecified gastrointestinal hemorrhage type Qualified Code(s): K92.2 - Gastrointestinal hemorrhage, unspecified (2) Anemia Anemia type: unspecified type Qualified Code(s): D64.9 - Anemia, unspecified (3) Chest pain Chest pain type: unspecified Qualified Code(s): R07.9 - Chest pain, unspecified
[2021-07-08] MEDS ORDERED: FUROSEMIDE 40 MG/4 ML VIAL IV ONE (21:40)
[2021-07-08] MEDS ORDERED: INSULIN ASPART PER UNIT SC SCH (21:40)
[2021-07-08] MEDS: PANTOprazole 40 MG in SYRINGE 0 ML IV SCH (22:18)
[2021-07-08] MEDS ORDERED: NITROGLYCERIN SL 0.4 MG/TAB TAB SL PRN (23:11)
[2021-07-08] MEDS ORDERED: GLUCOSE 40% GEL 15 GM TUBE PO PRN (23:11)
[2021-07-08] MEDS ORDERED: GLUCAGON FOR INJ 1 MG VIAL SQ PRN (23:11)
[2021-07-08] MEDS ORDERED: GLUCOSE 10 TABS/TUBE PO PRN (23:11)
[2021-07-08] MEDS ORDERED: DEXTROSE 50% 50 ML SYRINGE IV PRN (23:11)
[2021-07-08] MEDS ORDERED: ONDANSETRON INJ 2 MG/ML 2 ML VIAL IV PRN (23:11)
[2021-07-08] MEDS ORDERED: CARBOHYDRATES FOR HYPOGLYCEMIA PO PRN (23:11)
[2021-07-08] MEDS ORDERED: SODIUM CHLORIDE 0.9% 250 ML IV PRN (23:11)
[2021-07-09] MEDS: INSULIN ASPART PER UNIT SC SCH ×4 (00:59→17:49)
[2021-07-09] MEDS ORDERED: MELATONIN 3 MG TAB PO ONE ×2 (02:58→23:44)
[2021-07-09] MEDS: ALPRAZolam 0.5 MG TABLET PO PRN ×2 (03:10→07:42)
[2021-07-09 06:48] LABS: Basophils # (auto) 0.02 K/uL (0-0.2); Basophils % (auto) 0.3 %; Eosinophils % (auto) 2.8 %; Hematocrit (blood only) 29.8 % (42-52); Immature Granulocytes # (auto) 0.02 K/uL (0.00-0.02); Immature Granulocytes % (auto) 0.3 %; Lymphocytes # (auto) 1.19 K/uL (1.2-3.4); Lymphocytes % (auto) 16.6 %; Mean Corpuscular Hgb Conc 30.2 g/dL (32-36); Mean Corpuscular Volume 72.9 fL (80-100); Mean Platelet Volume 10.4 fL (7.4-10.4); Monocytes # (auto) 0.56 K/uL (0.11-0.59); Monocytes % (auto) 7.8 %; Neutrophils # (auto) 5.18 K/uL (1.4-6.5); Neutrophils % (auto) 72.2 %; Platelet Count 196 K/uL (130-400); RDW Coefficient of Variation 16.8 % (11.5-14.5); RDW Standard Deviation 45.1 fL (36.4-46.3); Red Blood Count 4.09 M/uL (4.7-6.1); White Blood Count 7.17 K/uL (4.8-10.8)
[2021-07-09 07:16] LABS: Microcytosis Present
[2021-07-09] MEDS ORDERED: ALPRAZolam 0.5 MG TABLET PO STA (07:40)
[2021-07-09] MEDS: ATORVASTATIN 40 MG TAB PO SCH (08:23)
[2021-07-09] MEDS: PANTOprazole 40 MG in SYRINGE 0 ML IV SCH ×2 (08:23→20:41)
[2021-07-09] MEDS: NICOTINE 14 MG/24 HR PATCH TD SCH (08:23)
[2021-07-09 09:17] LABS: Estimated Average Glucose 212 mg/dl
--- NOTE | 2021-07-09 09:55 | XCELERA ---
[id number]
--- NOTE | 2021-07-09 10:12 | Medical Student Progress Note ---
Date of Service July 09, 2021 Assessment & Plan (1) Chest pain: Plan: Mr. Alvarez is a 70 yo male with pmh significant for ACS, HTN, DM, PAD, 40+ pack year smoking hx, anxiety, and Iron def anemia, presents with chest pain and SOB, BALL for the past 5 days. HS Troponin slightly elevated on admission at 67, EKG with slight ST changes, similar to previous EKG in April. -trops peaked at 82, trending down to 74 -Echo with evidence of global hypokinesis, EF 25-30%, akinetic lateral LV wall. No baseline comparison. -cardiology consulted -patient will go to blood bank laboratory professional tomorrow AM -start nitrate 30 mg PO -Furosemide 40 mg IV QAM -resume metoprolol succinate 25 mg PO QAM -resume Enalapril 10 mg PO QAM, consider switching to Entresto -continue atorvastatin 80 mg -hold off on heparin and ASA in the setting of anemia ? GI bleed. -NPO at midnight in anticipation of cath tomorrow AM -patient educated on smoking cessation Chest pain type: unspecified Qualified Code(s): R07.9 - Chest pain, unspecified (2) Anemia: Plan: -Recently diagnosed with iron deficiency anemia -Positive trace heme occult in ED -history of hemorrhoids, iron supplements -Hg 9.0, baseline. -received 2 packs of RBCs -hold off on heparin and ASA -CBC qam Anemia type: unspecified type Qualified Code(s): D64.9 - Anemia, unspecified (3) Elevated troponin I level: Plan: Trending down. -HS trop 67 on admission, peaked at 82 -74 this am (4) HTN (hypertension): Plan: Chronic. 200s/90s -resume home VALERIE-I, consider switching to Entresto -resume metoprolol -start nitrate 30 -Lasix 40 mg IV (5) DM (diabetes mellitus): Plan: Chronic - A1c 9.0% -glucagon 1 mg PRN -glucose 15-30 PO PRN -Insulin Aspart Q6 -NPO at midnight in anticipation of cath tomorrow AM (6) Hyperlipemia: Plan: Chronic -continue atorvastatin 80 mg -Lipid profile ordered (7) Anxiety: Plan: chronic, he is quite anxious -continue home Alprazolam 0.5 mg PO -consider SSRI outpatient Plan: Diet: NPO midnight in anticipation of cath Code: Full DVT PPx: held in the setting of GI bleed Admission and Anticipated Discharge Date Admission Date: July 08, 2021 Supervising Attestation I personally examined the patient and verified all amos points of history and exam, discussed case, and agree with decision making with Shani Lowry MS4 and Dr Duvall breathing better than this morning. notes that his breathing was worsening for the last 1-2wks but so much of it was off/on that he suspected it was anxiety. also notes that laying down over the last ?1-2 months he would devleop a wheeze. feet still swollen but better. last colo ~5yrs ago no finidngs he knows of. no melena/hematochezia vitals noted nad heent nc at mmm bibasilar rales upper lungs clear no rhonchi no wheeze good effort no focal neuro deficits. acute (probably on chronic) CHF - strongly suspicious for underlying ischemic cardiomyopathy. currently quite volume overloaded. diurese, med management (for now cost / formulary checking if entresto will be affordable - if so, use; if not then VALERIE, spironolactone.) imdur for now to reduce preload/reduce pressures. high intensity statin demand ischemia and highly likely ischemic cardiomyopathy - for [facility] once able to lay flat. anemia/heme (+) stools complicate management of this some, po tentially - see below anemia / heme positive stools - does have hemorrhoids and reportedly takes iron as well - so might be false (+) -- but did get 2 units and Hgb only megan 0.5. will want to follow closely, obtain old records. doesn't give hx of serious/active bleeding at the bedside, but want to ensure this is not the case before potential stenting that would mandate longer term unbroken dual antiplatelets. may need GI input but likely would not be for scope until after [facility] at least triages CAD. empirically on protonix - lower concern for UGI bleeding though, low threshold to dc as we continue to follow Subjective Mr. Alvarez is quite anxious today. He is also dyspneic. He received one pack or RBC, did well, currently on his second pac . He reports no chest pain. No bowel movement overnight. Denies fevers, chills,nausea, vomiting. Review of Systems Constitutional: no fever, no chills and no malaise Respiratory: + dyspnea; no cough Cardiovascular: no chest pain, no palpitations and no edema Gastrointestinal: no abdominal pain, no constipation and no diarrhea/loose stools Physical Exam Constitutional: WD/WN, vitals as above Eyes: PERRL, conjunctivae normal, anicteric sclerae Neck: normal visual inspection Respiratory: + tachypneic Auscultation: + rales Cardiovascular: Rate/Rhythm: regular rate and + tachycardic Extremities: + pedal edema Gastrointestinal (Abdomen): normal bowel sounds, soft, nontender, no hepatosplenomegaly Psychiatric: A+Ox3, euthymic affect Results & Data ([facility]) Vital Signs (Past 12 Hours) Vital Signs Temp Pulse Pulse Resp BP BP Pulse Ox 07/09/21 09:00 36.5 C 98 H 20 201/79 H 96 07/09/21 08:30 36.8 C 97 H 20 184/102 H 95 07/09/21 08:15 36.4 C L 95 H 24 194/115 H 88 L 07/09/21 07:59 36.6 C 96 H 20 179/99 H 92 07/09/21 07:02 36.5 C 98 H 22 180/109 H 94 07/09/21 06:04 36.5 C 99 H 24 185/125 H 93 07/09/21 05:07 36.5 C 95 H 20 181/101 H 95 07/09/21 04:32 36.5 C 84 18 171/88 H 96 07/09/21 04:07 36.5 C 98 H 20 185/85 H 95 07/09/21 03:37 36.5 C 98 H 20 165/104 H 96 07/09/21 03:22 36.5 C 98 H 18 167/98 H 96 07/09/21 03:07 36.4 C L 97 H 20 174/66 H 96 07/09/21 00:24 93 H 07/08/21 23:10 36.7 C 108 H 22 176/82 H 98 07/08/21 22:58 184/95 H 07/08/21 22:37 98 07/08/21 22:15 99 H 25 H 178/135 H 93 Laboratory Results Laboratory Results WBC 7.17 K/uL (4.8-10.8) 07/09/21 06:32 RBC 4.09 M/uL (4.7-6.1) L 07/09/21 06:32 Hgb 9.0 g/dL (14.0-18.0) L 07/09/21 06:32 Hct 29.8 % (42-52) L 07/09/21 06:32 MCV 72.9 fL (80-100) L 07/09/21 06:32 MCH 22.0 pg (25-34) L 07/09/21 06:32 MCHC 30.2 g/dL (32-36) L 07/09/21 06:32 RDW Std Deviation 45.1 fL (36.4-46.3) 07/09/21 06:32 RDW Coeff of Josh 16.8 % (11.5-14.5) H 07/09/21 06:32 Plt Count 196 K/uL (130-400) 07/09/21 06:32 MPV 10.4 fL (7.4-10.4) 07/09/21 06:32 Immature Gran % (Auto) 0.3 % 07/09/21 06:32 Neut % (Auto) 72.2 % 07/09/21 06:32 Lymph % (Auto) 16.6 % 07/09/21 06:32 Milam % (Auto) 7.8 % 07/09/21 06:32 Eos % (Auto) 2.8 % 07/09/21 06:32 Baso % (Auto) 0.3 % 07/09/21 06:32 Neut # (Auto) 5.18 K/uL (1.4-6.5) 07/09/21 06:32 Lymph # (Auto) 1.19 K/uL (1.2-3.4) L 07/09/21 06:32 Milam # (Auto) 0.56 K/uL (0.11-0.59) 07/09/21 06:32 Eos # (Auto) 0.20 K/uL (0-0.5) 07/09/21 06:32 Baso # (Auto) 0.02 K/uL (0-0.2) 07/09/21 06:32 Immature Gran # (Auto) 0.02 K/uL (0.00-0.02) 07/09/21 06:32 Hypochromasia Present 07/08/21 18:48 Microcytosis Present 07/09/21 06:32 PT 11.1 Seconds (9.0-12.0) 07/08/21 18:48 INR 1.0 (0.9-1.1) 07/08/21 18:48 APTT 20.0 Seconds (21.0-31.0) L 07/08/21 18:48 PTT Ratio 0.7 07/08/21 18:48 Sodium 136 mmol/L (136-145) 07/08/21 18:48 Potassium 4.6 mmol/L (3.5-5.1) 07/08/21 18:48 Chloride 104 mmol/L (98-107) 07/08/21 18:48 Carbon Dioxide 25 mmol/L (21-32) 07/08/21 18:48 Anion Gap 7 (3-11) 07/08/21 18:48 BUN 18 mg/dl (6-23) 07/08/21 18:48 Creatinine 1.20 mg/dl (0.6-1.4) 07/08/21 18:48 Est Cr Clr Drug Dosing 76.9 ml/min 07/08/21 18:48 Est GFR ( Amer) 71.1 ml/min 07/08/21 18:48 Est GFR (Non-Af Amer) 61.3 ml/min 07/08/21 18:48 BUN/Creatinine Ratio 15.0 (10-20) 07/08/21 18:48 Glucose 244 mg/dl (70-99(Fasting)) H 07/08/21 18:48 POC Glucose 201 mg/dl (70-99) H 07/09/21 06:10 Estimat Average Glucose 212 mg/dl 07/09/21 06:32 Hemoglobin A1c 9.0 % (4.5-5.6) H 07/09/21 06:32 Calcium 8.7 mg/dl (8.5-10.1) 07/08/21 18:48 Magnesium 1.7 mg/dl (1.7-2.4) 07/08/21 18:48 Total Bilirubin 0.5 mg/dl (0.2-1.0) 07/08/21 18:48 AST 19 U/L (13-39) 07/08/21 18:48 ALT 14 U/L (7-52) 07/08/21 18:48 Alkaline Phosphatase 98 U/L (34-104) 07/08/21 18:48 Troponin I High Sens 74.9 pg/ml (0-20) H* 07/09/21 06:32 Total Protein 7.5 gm/dl (6.0-8.3) 07/08/21 18:48 Albumin 3.8 gm/dl (3.4-5.0) 07/08/21 18:48 Globulin 3.7 gm/dl (2.5-4.0) 07/08/21 18:48 Albumin/Globulin Ratio 1.0 (0.9-2) 07/08/21 18:48 Lipase 29 U/L (11-82) 07/08/21 18:48 SARS-CoV-2, RNA, NAAT NEGATIVE (NEGATIVE) 07/08/21 Unknown Blood Type A Positive 07/08/21 21:13 Blood Type Recheck A Positive 07/08/21 22:23 Antibody Screen POSITIVE A 07/08/21 21:13 Antibody Identification Anti-E 07/08/21 21:13 Antibody ID Comment 07/08/21 21:13 Antigen Identification E Antigen - NEGATIVE 07/08/21 21:13 Direct Antiglob Test Cancelled 07/08/21 21:13 UZAIR (IgG-AHG) Cancelled 07/08/21 21:13 UZAIR, Polyspecific Cancelled 07/08/21 21:13 UZAIR C3b, C3d 5 Min Cancelled 07/08/21 21:13 Crossmatch See Detail 07/08/21 21:13 Impressions Chest X-Ray 07/08/21 18:04 SINGLE VIEW CHEST CLINICAL HISTORY: Dyspnea. FINDINGS: An AP, portable, upright chest radiograph is obtained. No prior studies are available for comparison at the time of dictation. The examination is degraded by portable technique and apical lordotic positioning. The heart is enlarged noting atherosclerotic calcification of the thoracic aorta. There is pulmonary vascular congestion. Atelectasis is noted at the lung bases. No airspace consolidation or large pleural effusion is identified. No pneumothorax is seen. The skeletal structures are osteopenic. There are healed right posterior rib fractures. IMPRESSION: Cardiomegaly with pulmonary vascular congestion. ACT 112: Negative or not required by law. Electronically signed by: Amarjit Holt M.D. 07/08/2021 8:02 PM Medications Administered Current Medications Acetaminophen (Acetaminophen 325 Mg Tab) 650 mg PO Q4H PRN PRN Reason: Pain or Fever Stop: 08/07/21 23:10 Alprazolam (Alprazolam 0.5 Mg Tablet) 0.5 mg PO DAILY PRN PRN Reason: Anxiety Stop: 08/07/21 21:39 Last Admin: 07/09/21 07:42 Dose: 0.5 mg Documented by: Atorvastatin Calcium (Atorvastatin 40 Mg Tab) 80 mg PO DAILY [place] Stop: 08/08/21 08:59 Last Admin: 07/09/21 08:23 Dose: 80 mg Documented by: Dextrose (Dextrose 50% 50 Ml Syringe) 25 - 50 ml IV UD PRN; Protocol PRN Reason: Hypoglycemia Protocol Stop: 08/07/21 23:10 Glucagon (Glucagon For Inj 1 Mg Vial) 1 mg SQ UD PRN; Protocol PRN Reason: Hypoglycemia Protocol Stop: 08/07/21 23:10 Glucose (Glucose 10 Tabs/Tube) 4 - 8 tabs PO UD PRN; Protocol PRN Reason: Hypoglycemia Protocol Stop: 08/07/21 23:10 Glucose (Glucose 40% Gel 15 Gm Tube) 15 - 30 gm PO UD PRN; Protocol PRN Reason: Hypoglycemia Protocol Stop: 08/07/21 23:10 Pantoprazole Sodium 40 mg/ (Syringe) 10 mls @ 5 mls/min IV BID [place] Stop: 08/07/21 21:39 Last Admin: 07/09/21 08:23 Dose: 5 mls/min Documented by: Sodium Chloride (Nss) 250 mls @ 15 mls/hr IV .[id number] PRN PRN Reason: For Transfusion Stop: 08/07/21 23:10 Insulin Aspart (Insulin Aspart Per Unit) 0 units SC Q6 [place] Stop: 08/08/21 00:00 Last Admin: 07/09/21 06:31 Dose: 2 units Documented by: Miscellaneous (Carbohydrates For Hypoglycemia ) 15 - 30 gm PO UD PRN PRN Reason: Hypoglycemia Protocol Stop: 08/07/21 23:10 Miscellaneous (Remove Nicoderm Patch) 1 ea N/A DAILY@[id number] [place] Stop: 08/08/21 08:58 Last Admin: 07/09/21 08:23 Dose: 1 ea Documented by: Nicotine (Nicotine 14 Mg/24 Hr Patch) 14 mg TD QAM [facility] Stop: 08/08/21 08:59 Last Admin: 07/09/21 08:23 Dose: 14 mg Documented by: Nitroglycerin (Nitroglycerin Sl 0.4 Mg/Tab Tab) 0.4 mg SL UD PRN PRN Reason: Chest Pain Stop: 08/07/21 23:10 Ondansetron HCl (Ondansetron Inj 2 Mg/Ml 2 Ml Vial) 4 mg IV Q6H PRN PRN Reason: Nausea Stop: 08/07/21 23:10
[2021-07-09] MEDS ORDERED: FUROSEMIDE 40 MG/4 ML VIAL IV ONE (13:04)
[2021-07-09] MEDS: ENALAPRIL MALEATE 10 MG TAB PO SCH ×2 (13:11→14:50)
[2021-07-09] MEDS ORDERED: ISOSORBIDE MONO EXTENDED REL 30 MG TABCR PO ONE (14:37)
[2021-07-09] MEDS: METOPROLOL SUCC 25MG EXT REL TAB PO SCH (15:13)
[2021-07-09] MEDS ORDERED: SPIRONOLACTONE 25 MG TAB PO ONE (17:22)
--- NOTE | 2021-07-09 17:25 | Cardiology Consultation ---
Date of Consultation July 09, 2021 Assessment & Plan (1) Acute HFrEF (heart failure with reduced ejection fraction): (2) Cardiomyopathy: (3) Tobacco abuse: (4) HTN (hypertension): (5) Anemia: ASSESSMENT/PLAN: 1. Acute heart failure with reduced EF: Discussed the diagnosis. Significantly hypervolemic. Lasix 40 mg IV b.i.d.. Would aim for at least 1-2 L negative net fluid balance daily if tolerated, or more. Unfortunately, he has not collected any of his urine output today thus far but was instructed to do so. Discussed with nursing staff. Start spironolactone 25 mg daily. Discontinue VALERIE- inhibitor in place of Entresto, 36 hours after last dose of VALERIE-inhibitor. Would not titrate beta-claudia at this time until volume status has improved. On discharge, start ST LT 2 inhibitor (not available on formulary). Low-sodium diet, less than 2000 mg daily, discussed with him. Daily weights. Strict I&Os. 2. Cardiomyopathy: Given known peripheral arterial disease and other risk factors for CAD, concerning for ischemic heart disease as playing a role. Recommend cardiac catheterization when he is able to lay flat, which is not today. No urgent indication. Would treat for potential CAD. High-intensity statin therapy. not on anti-platelet therapy due to heme-positive stool and anemia. Optimize medical therapy and if no improvement over time, would qualify for ICD for primary prevention. 3. Tobacco abuse: Recommended that he stop smoking. 4. Hypertension: Blood pressure has been elevated. This should improve with more aggressive diuresis and typical heart failure medical therapy. 5. Anemia: As per primary service. Heme-positive stool but no brisk bleed or noted blood by patient. Investigation is pending. 6. Disposition: Cardiology will continue to follow. Patient care discussed with Dr. Jose of the primary hospitalist service. Highly complex medical issues. Thank you for allowing me to participate in the care of your patient. Please call for any other questions or concerns. Sincerely, Celestino Jimenez M.D. History of Present Illness Reason for Consultation: "NSTEMI, pulmonary edema" Requesting Physician: Janeth Crabtree Attending Physician: Jamil Jose, History of Present Illness Mr. Alvarez is a very pleasant 70-year-old gentleman with a history significant for hypertension, tobacco abuse, peripheral arterial disease s/p left SFA and popliteal stents, type 2 diabetes, and iron deficient anemia. He was admitted on 07/08/2021 with dyspnea. For the past 3 months or so, he has had progressively worsening lower extremity swelling and shortness of breath. shortness of breath has been occurring at any time, including orthopnea and shortness of breath at rest. He experiences occasional right-sided chest tightness which she believes is from anxiety. He finds it more intense with exertion and resolves with belching. He is currently chest pain-free. He does not add salt to food but does not maintain a low- sodium diet. He has not been diagnosed with cardiac issues in the past. He denies melena, hematochezia, or hematuria but has been found to have heme- positive stool during this hospital stay and has been transfused PRBC due to initial hemoglobin of 8.5 compared to 12.4 on 10/24/2018. He denies syncope, near-syncope, palpitations, or fever. While here, he has received furosemide 40 mg IV and states that he has urinated at least 8 times today, but did not collect any of his urine for measurement. When reviewing his medications, it appears as though he received 1 dose of Lasix today. He has had the following studies/procedures: 1. Left SFA and popliteal artery E[employer]SEM[employer]ER/stent 09/18/2018: Dr. Ambriz. 2. Left lower extremity angiography and catheter directed tPA infusion/thrombolysis September 2018: Thrombus formation after discontinuing Plavix following stent placement. Review of systems: As above. Review of systems otherwise negative/unremarkable. Family history: No known premature CAD. Social history: Started smoking in 1965 and has smoked up to 2 packs per day or more. Currently smoking 0.5 pack per day. No current drug or alcohol abuse but has used both in the past. He is since 1984. Has 1 son who lives in [place]. Grandchild. He lives alone. Originally from [place]. He was unaccompanied in his hospital room. Allergies Allergy/AdvReac Type Severity Reaction Status Date / Time cat dander Allergy Intermediate CONGESTION Verified 07/08/21 20:10 Home Medications Medication Instructions Recorded Confirmed Type enalapril maleate 10 mg tablet 10 mg PO DAILY 09/15/18 07/08/21 History aspirin 81 mg tablet,delayed 81 mg PO DAILY 05/15/19 07/08/21 History release (Aspirin Low Dose) atorvastatin 80 mg tablet 80 mg PO DAILY 05/15/19 07/08/21 History clopidogrel 75 mg tablet 75 mg PO DAILY 05/15/19 07/08/21 History pioglitazone 15 mg-metformin 850 1 tab PO DAILY 05/15/19 07/08/21 History mg tablet alprazolam 0.5 mg tablet 0.5 mg PO DAILY PRN 07/08/21 07/08/21 History glipizide 10 mg tablet 10 mg PO DAILY 07/08/21 07/08/21 History omeprazole 20 mg tablet,delayed 20 mg PO DAILY 07/08/21 07/08/21 History release sildenafil 100 mg tablet 100 mg PO DAILY PRN 07/08/21 07/08/21 History Patient History Medical History Anemia Arterial occlusion, lower extremity Atherosclerosis of artery of left lower extremity HTN (hypertension) Tobacco abuse Type 2 diabetes mellitus Surgical History History of cataract extraction History of eye surgery retina History of left knee surgery Social History Smoking Status: Current every day smoker Tobacco Type: Cigarettes Cigarettes Per Day: 10; Second Hand Exposure: No; Do You Dip or Chew Tobacco: No; Tobacco Cessation Education Requested by Patient: No Hx Alcohol Use: No Hx Substance Use: No Preferred Language: Kazakh Communication Ability: Effective Community Nurse Required: No Beliefs That Will Affect Care: None Current Living Situation: Alone How many Children do You have: 1 Other Information That Helps Us Care for You: No Feels Safe at Home: Yes Safety Concerns: Feels Safe At This Time Assistive Devices: None Physical Exam Physical Exam: Gen.: No acute distress. Alert and oriented. HEENT: Anicteric sclera. Neck: Thick neck. No bruits. Normal carotid upstrokes bilaterally. Cardiac: PMI was nonpalpable. No ventricular heave. Regular. Normal S1-S2. No murmurs, rubs, or gallops. Pulmonary: Clear to auscultation bilaterally without wheezes, rales, or rhonchi. Abdomen: Soft, nontender, nondistended, with normoactive bowel sounds. No bruits noted. Extremities: 2+ radial pulses bilaterally. Weak distal lower extremity pulses. 3+ bilateral lower extremity edema to the knees. No cyanosis. Psychiatric: Affect appears appropriate. Results & Data ([facility]) Vital Signs (Past 12 Hours) Vital Signs Temp Pulse Pulse Resp BP BP Pulse Ox 07/09/21 15:36 36.3 C L 98 H 19 155/94 H 96 07/09/21 13:21 36.5 C 95 H 20 175/79 H 90 07/09/21 11:00 36.4 C L 96 H 20 181/107 H 97 07/09/21 10:00 36.6 C 98 H 20 201/107 H 95 07/09/21 09:00 36.5 C 98 H 20 201/79 H 96 07/09/21 08:30 36.8 C 97 H 20 184/102 H 95 07/09/21 08:15 36.4 C L 95 H 24 194/115 H 88 L 07/09/21 07:59 36.6 C 96 H 20 179/99 H 92 07/09/21 07:02 36.5 C 98 H 22 180/109 H 94 07/09/21 06:04 36.5 C 99 H 24 185/125 H 93 Laboratory Results Laboratory Results - last 24 hr 07/08/21 07/08/21 07/08/21 18:48 18:48 18:48 WBC 7.34 RBC 4.09 L Hgb 8.5 L Hct 29.1 L MCV 71.1 L MCH 20.8 L MCHC 29.2 L RDW Std Deviation 42.7 RDW Coeff of Josh 16.2 H Plt Count 214 MPV Immature Gran % (Auto) 0.1 Neut % (Auto) 70.9 Lymph % (Auto) 16.3 Warren % (Auto) 9.7 Eos % (Auto) 2.7 Baso % (Auto) 0.3 Neut # (Auto) 5.20 Lymph # (Auto) 1.20 Warren # (Auto) 0.71 H Eos # (Auto) 0.20 Baso # (Auto) 0.02 Immature Gran # (Auto) 0.01 Hypochromasia Present Microcytosis Present PT 11.1 INR 1.0 APTT 20.0 L PTT Ratio 0.7 Sodium 136 Potassium 4.6 Chloride 104 Carbon Dioxide 25 Anion Gap 7 BUN 18 Creatinine 1.20 Est Cr Clr Drug Dosing 76.9 Est GFR ( Amer) 71.1 Est GFR (Non-Af Amer) 61.3 BUN/Creatinine Ratio 15.0 Glucose 244 H POC Glucose Estimat Average Glucose Hemoglobin A1c Calcium 8.7 Magnesium 1.7 Total Bilirubin 0.5 AST 19 ALT 14 Alkaline Phosphatase 98 Troponin I High Sens B-Natriuretic Peptide Total Protein 7.5 Albumin 3.8 Globulin 3.7 Albumin/Globulin Ratio 1.0 Lipase SARS-CoV-2, RNA, NAAT Blood Type Blood Type Recheck Antibody Screen Antibody Identification Antibody ID Comment Antigen Identification Direct Antiglob Test UZAIR (IgG-AHG) UZAIR, Polyspecific UZAIR C3b, C3d 5 Min Crossmatch 07/08/21 07/08/21 07/08/21 18:48 18:48 21:13 WBC RBC Hgb Hct MCV MCH MCHC RDW Std Deviation RDW Coeff of Josh Plt Count MPV Immature Gran % (Auto) Neut % (Auto) Lymph % (Auto) Warren % (Auto) Eos % (Auto) Baso % (Auto) Neut # (Auto) Lymph # (Auto) Warren # (Auto) Eos # (Auto) Baso # (Auto) Immature Gran # (Auto) Hypochromasia Microcytosis PT INR APTT PTT Ratio Sodium Potassium Chloride Carbon Dioxide Anion Gap BUN Creatinine Est Cr Clr Drug Dosing Est GFR ( Amer) Est GFR (Non-Af Amer) BUN/Creatinine Ratio Glucose POC Glucose Estimat Average Glucose Hemoglobin A1c Calcium Magnesium Total Bilirubin AST ALT Alkaline Phosphatase Troponin I High Sens 67.3 H* B-Natriuretic Peptide Total Protein Albumin Globulin Albumin/Globulin Ratio Lipase 29 SARS-CoV-2, RNA, NAAT Blood Type A Positive Blood Type Recheck Antibody Screen POSITIVE A Antibody Identification Anti-E Antibody ID Comment Antigen Identification E Antigen - NEGATIVE Direct Antiglob Test Cancelled UZAIR (IgG-AHG) Cancelled UZAIR, Polyspecific Cancelled UZAIR C3b, C3d 5 Min Cancelled Crossmatch See Detail 07/08/21 07/08/21 07/08/21 21:59 22:23 Unknown WBC RBC Hgb Hct MCV MCH MCHC RDW Std Deviation RDW Coeff of Josh Plt Count MPV Immature Gran % (Auto) Neut % (Auto) Lymph % (Auto) Warren % (Auto) Eos % (Auto) Baso % (Auto) Neut # (Auto) Lymph # (Auto) Warren # (Auto) Eos # (Auto) Baso # (Auto) Immature Gran # (Auto) Hypochromasia Microcytosis PT INR APTT PTT Ratio Sodium Potassium Chloride Carbon Dioxide Anion Gap BUN Creatinine Est Cr Clr Drug Dosing Est GFR ( Amer) Est GFR (Non-Af Amer) BUN/Creatinine Ratio Glucose POC Glucose 207 H Estimat Average Glucose Hemoglobin A1c Calcium Magnesium Total Bilirubin AST ALT Alkaline Phosphatase Troponin I High Sens B-Natriuretic Peptide Total Protein Albumin Globulin Albumin/Globulin Ratio Lipase SARS-CoV-2, RNA, NAAT NEGATIVE Blood Type Blood Type Recheck A Positive Antibody Screen Antibody Identification Antibody ID Comment Antigen Identification Direct Antiglob Test UZAIR (IgG-AHG) UZAIR, Polyspecific UZAIR C3b, C3d 5 Min Crossmatch 07/09/21 07/09/21 07/09/21 00:35 00:47 06:10 WBC RBC Hgb Hct MCV MCH MCHC RDW Std Deviation RDW Coeff of Josh Plt Count MPV Immature Gran % (Auto) Neut % (Auto) Lymph % (Auto) Warren % (Auto) Eos % (Auto) Baso % (Auto) Neut # (Auto) Lymph # (Auto) Warren # (Auto) Eos # (Auto) Baso # (Auto) Immature Gran # (Auto) Hypochromasia Microcytosis PT INR APTT PTT Ratio Sodium Potassium Chloride Carbon Dioxide Anion Gap BUN Creatinine Est Cr Clr Drug Dosing Est GFR ( Amer) Est GFR (Non-Af Amer) BUN/Creatinine Ratio Glucose POC Glucose 205 H 201 H Estimat Average Glucose Hemoglobin A1c Calcium Magnesium Total Bilirubin AST ALT Alkaline Phosphatase Troponin I High Sens 82.5 H* D B-Natriuretic Peptide Total Protein Albumin Globulin Albumin/Globulin Ratio Lipase SARS-CoV-2, RNA, NAAT Blood Type Blood Type Recheck Antibody Screen Antibody Identification Antibody ID Comment Antigen Identification Direct Antiglob Test UZAIR (IgG-AHG) UZAIR, Polyspecific UZAIR C3b, C3d 5 Min Crossmatch 07/09/21 07/09/21 07/09/21 06:32 06:32 06:32 WBC 7.17 RBC 4.09 L Hgb 9.0 L Hct 29.8 L MCV 72.9 L MCH 22.0 L MCHC 30.2 L RDW Std Deviation 45.1 RDW Coeff of Josh 16.8 H Plt Count 196 MPV 10.4 Immature Gran % (Auto) 0.3 Neut % (Auto) 72.2 Lymph % (Auto) 16.6 Warren % (Auto) 7.8 Eos % (Auto) 2.8 Baso % (Auto) 0.3 Neut # (Auto) 5.18 Lymph # (Auto) 1.19 L Warren # (Auto) 0.56 Eos # (Auto) 0.20 Baso # (Auto) 0.02 Immature Gran # (Auto) 0.02 Hypochromasia Microcytosis Present PT INR APTT PTT Ratio Sodium Potassium Chloride Carbon Dioxide Anion Gap BUN Creatinine Est Cr Clr Drug Dosing Est GFR ( Amer) Est GFR (Non-Af Amer) BUN/Creatinine Ratio Glucose POC Glucose Estimat Average Glucose 212 Hemoglobin A1c 9.0 H Calcium Magnesium Total Bilirubin AST ALT Alkaline Phosphatase Troponin I High Sens 74.9 H* B-Natriuretic Peptide Total Protein Albumin Globulin Albumin/Globulin Ratio Lipase SARS-CoV-2, RNA, NAAT Blood Type Blood Type Recheck Antibody Screen Antibody Identification Antibody ID Comment Antigen Identification Direct Antiglob Test UZAIR (IgG-AHG) UZAIR, Polyspecific UZAIR C3b, C3d 5 Min Crossmatch 07/09/21 07/09/21 07/09/21 12:14 14:18 16:43 WBC RBC Hgb Hct MCV MCH MCHC RDW Std Deviation RDW Coeff of Josh Plt Count MPV Immature Gran % (Auto) Neut % (Auto) Lymph % (Auto) Warren % (Auto) Eos % (Auto) Baso % (Auto) Neut # (Auto) Lymph # (Auto) Warren # (Auto) Eos # (Auto) Baso # (Auto) Immature Gran # (Auto) Hypochromasia Microcytosis PT INR APTT PTT Ratio Sodium Potassium Chloride Carbon Dioxide Anion Gap BUN Creatinine Est Cr Clr Drug Dosing Est GFR ( Amer) Est GFR (Non-Af Amer) BUN/Creatinine Ratio Glucose POC Glucose 188 H 153 H Estimat Average Glucose Hemoglobin A1c Calcium Magnesium Total Bilirubin AST ALT Alkaline Phosphatase Troponin I High Sens B-Natriuretic Peptide 1316 H Total Protein Albumin Globulin Albumin/Globulin Ratio Lipase SARS-CoV-2, RNA, NAAT Blood Type Blood Type Recheck Antibody Screen Antibody Identification Antibody ID Comment Antigen Identification Direct Antiglob Test UZAIR (IgG-AHG) UZAIR, Polyspecific UZAIR C3b, C3d 5 Min Crossmatch Diagnostic Findings Telemetry personally reviewed: Sinus rhythm. PVCs. Ventricular triplet. Echo 07/09/2021: Moderately dilated LV. EF 25-30%. Akinesis of the inferolateral wall. Otherwise, global hypokinesis. Moderate LVH. Moderate left atrial dilation. Mild MR. RVSP 80. ECGs personally reviewed: ECG 07/08/2021 at 6:54 p.m.: Sinus rhythm 98 beats per minute. Lateral T-wave abnormality. ECG 07/09/2021 at 5:03 a.m.: Sinus rhythm 98 beats per minute. Lateral T-wave abnormality. Chest x-ray 07/08/2021: Pulmonary vascular congestion per Radiology. Medications Administered Current Inpatient Medications Acetaminophen (Acetaminophen 325 Mg Tab) 650 mg PO Q4H PRN PRN Reason: Pain or Fever Stop: 08/07/21 23:10 Alprazolam (Alprazolam 0.5 Mg Tablet) 0.5 mg PO DAILY PRN PRN Reason: Anxiety Stop: 08/07/21 21:39 Last Admin: 07/09/21 07:42 Dose: 0.5 mg Documented by: Atorvastatin Calcium (Atorvastatin 40 Mg Tab) 80 mg PO DAILY [facility] Stop: 08/08/21 08:59 Last Admin: 07/09/21 08:23 Dose: 80 mg Documented by: Dextrose (Dextrose 50% 50 Ml Syringe) 25 - 50 ml IV UD PRN; Protocol PRN Reason: Hypoglycemia Protocol Stop: 08/07/21 23:10 Enalapril Maleate (Enalapril Maleate 10 Mg Tab) 10 mg PO QAM [place] Stop: 08/08/21 13:14 Last Admin: 07/09/21 14:50 Dose: 10 mg Documented by: Furosemide (Furosemide 40 Mg/4 Ml Vial) 40 mg IV [id number] [facility] Stop: 08/08/21 17:29 Glucagon (Glucagon For Inj 1 Mg Vial) 1 mg SQ UD PRN; Protocol PRN Reason: Hypoglycemia Protocol Stop: 08/07/21 23:10 Glucose (Glucose 10 Tabs/Tube) 4 - 8 tabs PO UD PRN; Protocol PRN Reason: Hypoglycemia Protocol Stop: 08/07/21 23:10 Glucose (Glucose 40% Gel 15 Gm Tube) 15 - 30 gm PO UD PRN; Protocol PRN Reason: Hypoglycemia Protocol Stop: 08/07/21 23:10 Pantoprazole Sodium 40 mg/ (Syringe) 10 mls @ 5 mls/min IV BID [facility] Stop: 08/07/21 21:39 Last Admin: 07/09/21 08:23 Dose: 5 mls/min Documented by: Sodium Chloride (Nss) 250 mls @ 15 mls/hr IV .[id number] PRN PRN Reason: For Transfusion Stop: 08/07/21 23:10 Insulin Aspart (Insulin Aspart Per Unit) 0 units SC Q6 [facility] Stop: 08/08/21 00:00 Last Admin: 07/09/21 13:11 Dose: 5 units Documented by: Isosorbide Mononitrate (Isosorbide Warren Extended Rel 30 Mg Tabcr) 30 mg PO BID [facility] Stop: 08/09/21 08:59 Metoprolol Succinate (Metoprolol Succ 25mg Ext Rel Tab) 25 mg PO QAM [facility] Stop: 08/08/21 14:44 Last Admin: 07/09/21 15:13 Dose: 25 mg Documented by: Miscellaneous (Carbohydrates For Hypoglycemia ) 15 - 30 gm PO UD PRN PRN Reason: Hypoglycemia Protocol Stop: 08/07/21 23:10 Miscellaneous (Remove Nicoderm Patch) 1 ea N/A DAILY@[id number] [facility] Stop: 08/08/21 08:58 Last Admin: 07/09/21 08:23 Dose: 1 ea Documented by: Nicotine (Nicotine 14 Mg/24 Hr Patch) 14 mg TD QAM [facility] Stop: 08/08/21 08:59 Last Admin: 07/09/21 08:23 Dose: 14 mg Documented by: Nitroglycerin (Nitroglycerin Sl 0.4 Mg/Tab Tab) 0.4 mg SL UD PRN PRN Reason: Chest Pain Stop: 08/07/21 23:10 Ondansetron HCl (Ondansetron Inj 2 Mg/Ml 2 Ml Vial) 4 mg IV Q6H PRN PRN Reason: Nausea Stop: 08/07/21 23:10 Spironolactone (Spironolactone 25 Mg Tab) 25 mg PO QAM [facility] Stop: 08/09/21 08:59 PG Care Time/CCT Total # of Minutes Spent Total Time Spent with Patient: Total time spent is greater than 50% in coordination of care (as documented) at patient's floor/unit and/or counseling patient: Coding Level of Care Code 69407 Initial Inpt Care Lvl 3 Diagnoses Acute HFrEF (heart failure with reduced ejection fraction) I50.21 Cardiomyopathy I42.9 Tobacco abuse Z72.0 HTN (hypertension) I10 Anemia D64.9 Anemia type: unspecified type (1) Anemia Anemia type: unspecified type Qualified Code(s): D64.9 - Anemia, unspecified
[2021-07-09] MEDS: FUROSEMIDE 40 MG/4 ML VIAL IV SCH (17:46)
--- NOTE | 2021-07-09 18:02 | Billing Data ---
Date of Service July 09, 2021 Coding Level of Care Code 52268 Subseq Hosp Care Lvl 3
[2021-07-09] MEDS: ACETAMINOPHEN 325 MG TAB PO PRN (20:41)
[2021-07-09] MEDS ORDERED: FUROSEMIDE 40 MG/4 ML VIAL IV SCH (21:00)
[2021-07-09] MEDS ORDERED: LORazepam 0.5 MG TAB PO STA (21:20)
[2021-07-09 22:15] LABS: BUN Creatinine Ratio 12.9 (10-20); Creatinine Clr Calc Pharmacy 56.9 ml/min; Est GFR (African American) 49.1 ml/min; Est GFR (Non-African American) 42.4 ml/min
[2021-07-10] MEDS: INSULIN ASPART PER UNIT SC SCH ×5 (00:27→22:39)
--- NOTE | 2021-07-10 04:23 | Billing Data ---
Date of Service July 10, 2021 Coding Level of Care Code 96865 Initial Inpt Care Lvl 3
[2021-07-10] MEDS: ACETAMINOPHEN 325 MG TAB PO PRN ×2 (05:55→23:49)
[2021-07-10] MEDS: FUROSEMIDE 40 MG/4 ML VIAL IV SCH ×2 (06:01→13:22)
[2021-07-10 06:39] LABS: Hematocrit (blood only) 33.2 % (42-52); Hemoglobin 10.3 g/dL (14.0-18.0); Mean Corpuscular Hemoglobin 22.3 pg (25-34); Mean Corpuscular Volume 71.9 fL (80-100); Mean Platelet Volume 11.6 fL (7.4-10.4); Platelet Count 222 K/uL (130-400); RDW Coefficient of Variation 17.1 % (11.5-14.5); Red Blood Count 4.62 M/uL (4.7-6.1); White Blood Count 7.79 K/uL (4.8-10.8)
[2021-07-10 07:09] LABS: Calcium 8.9 mg/dl (8.5-10.1); Creatinine Clr Calc Pharmacy 65.5 ml/min; Est GFR (African American) 58.5 ml/min; Est GFR (Non-African American) 50.5 ml/min; Potassium 3.9 mmol/L (3.5-5.1)
[2021-07-10] MEDS: SPIRONOLACTONE 25 MG TAB PO SCH (07:39)
[2021-07-10] MEDS: ISOSORBIDE MONO EXTENDED REL 30 MG TABCR PO SCH ×2 (07:39→22:36)
[2021-07-10] MEDS: PANTOprazole 40 MG in SYRINGE 0 ML IV SCH (07:39)
[2021-07-10] MEDS: METOPROLOL SUCC 25MG EXT REL TAB PO SCH (07:39)
[2021-07-10] MEDS: ATORVASTATIN 40 MG TAB PO SCH (07:39)
[2021-07-10] MEDS: NICOTINE 14 MG/24 HR PATCH TD SCH (07:40)
[2021-07-10] MEDS ORDERED: FUROSEMIDE 40 MG/4 ML VIAL IV SCH (09:00)
[2021-07-10] MEDS: ALPRAZolam 0.5 MG TABLET PO PRN (09:48)
[2021-07-10] MEDS ORDERED: Nursing to Pharmacy Communication SCH (13:00)
--- NOTE | 2021-07-10 13:41 | Cardiology Progress Note ---
Date of Service July 10, 2021 Assessment & Plan (1) Acute HFrEF (heart failure with reduced ejection fraction): (2) Cardiomyopathy: (3) Tobacco abuse: (4) HTN (hypertension): (5) Anemia: Plan: ASSESSMENT/PLAN: 1. Acute heart failure with reduced EF: Remains significantly hypervolemic. ContinueLasix 40 mg IV b.i.d.. He is diuresing well. Would aim for at least 1- 2 L negative net fluid balance daily if tolerated, or more. Continue spironolactone 25 mg daily. VALERIE-inhibitor discontinued and if affordable, can initiate Entresto, 36 hours after last dose of VALERIE-inhibitor. Continue current dose of beta-claudia and can titrate as volume status improves. On discharge, start ST LT 2 inhibitor (not available on formulary). Low-sodium diet, less than 2000 mg daily, discussed with him. Daily weights. Strict I&Os. 2. Cardiomyopathy: Given known peripheral arterial disease and other risk factors for CAD, concerning for ischemic heart disease as playing a role. Discussed cardiac catheterization today verses Tuesday. He is not sure if he can lay flat and he is still quite hypervolemic. As he will require several more days of medication titration and diuresis, recommended that catheterization be performed after heart failure improved. Catheterization is not urgently indicated. Would treat for potential CAD. High-intensity statin therapy. Not on anti-platelet therapy due to heme-positive stool and anemia. Optimize medical therapy and if no improvement over time, would qualify for ICD for primary prevention. 3. Tobacco abuse: Recommended that he stop smoking. 4. Hypertension: Blood pressure has improved. Continue current regimen. 5. Anemia: As per primary service. Heme-positive stool but no brisk bleed or noted blood by patient. Hemoglobin has improved. s/p prbc x 2 units. Tab number images on the with you in drink will with your right 6. Disposition: Planning for cardiac catheterization on 07/13/2021. NPO after midnight on Tuesday. Patient care discussed with Dr. Jose of the primary hospitalist service. I will be away from the hospital this weekend. Please call the on-call program and research coordinator for any questions or concerns. Will sign out to Dr. Kaur. Admission and Anticipated Discharge Date Admission Date: July 08, 2021 Subjective His breathing has improved. He is not sure if he can lay flat yet. His biggest concern is his anxiety. He states that he wants more anti anxiety medication available for when he needs it. Initially he was a bit upset and docked about going home soon but after conversation, he was agreeable to remain hospitalized to help optimize his heart failure. He denies chest pain, syncope, near-syncope, palpitations, or bleeding. He continues to have lower extremity edema. He was alone in his hospital room. Review of systems: As above. Physical Exam Physical Exam: Gen.: No acute distress. Alert and oriented. HEENT: Anicteric sclera. Neck: Thick neck. Cardiac: PMI was nonpalpable. No ventricular heave. Regular. Normal S1-S2. No murmurs, rubs, or gallops. Pulmonary: Clear to auscultation bilaterally without wheezes, rales, or rhonchi. Abdomen: Soft, nontender, nondistended, with normoactive bowel sounds. No bruits noted. Extremities: 2+ radial pulses bilaterally. Weak distal lower extremity pulses. 2-3+ bilateral lower extremity edema to the knees. No cyanosis. Psychiatric: Affect appears appropriate. Results & Data ([facility]) Vital Signs (Past 12 Hours) Vital Signs Temp Pulse Pulse Resp BP BP Pulse Ox 07/10/21 11:09 36.4 C L 92 H 21 134/80 96 07/10/21 08:00 94 H 07/10/21 07:31 36.4 C L 92 H 22 168/100 H 175/103 H 94 07/10/21 02:54 36.4 C L 82 22 166/82 H 97 Intake & Output 07/08/21 07/09/21 07/10/21 07/11/21 06:59 06:59 06:59 06:59 Intake Total 310 / 310 310 / 310 Output Total 2650 / 2650 700 / 700 Balance 310 / 310 -2340 / -2340 -700 / -700 Weight 261 lb 7.492 oz 259 lb 7.745 oz Laboratory Results Laboratory Results - last 24 hr 07/09/21 07/09/21 07/09/21 14:18 16:43 20:18 WBC RBC Hgb Hct MCV MCH MCHC RDW Std Deviation RDW Coeff of Josh Plt Count MPV Sodium Potassium Chloride Carbon Dioxide Anion Gap BUN Creatinine Est Cr Clr Drug Dosing Est GFR ( Amer) Est GFR (Non-Af Amer) BUN/Creatinine Ratio Glucose POC Glucose 153 H 191 H Calcium B-Natriuretic Peptide 1316 H Triglycerides Cholesterol LDL Cholesterol, Calc VLDL Cholesterol, Calc HDL Cholesterol Cholesterol/HDL Ratio TSH 07/09/21 07/10/21 07/10/21 21:40 00:07 06:09 WBC 7.79 RBC 4.62 L Hgb 10.3 L Hct 33.2 L MCV 71.9 L MCH 22.3 L MCHC 31.0 L RDW Std Deviation 44.0 RDW Coeff of Josh 17.1 H Plt Count 222 MPV 11.6 H Sodium 135 L Potassium 4.0 Chloride 101 Carbon Dioxide 25 Anion Gap 9 BUN 21 Creatinine 1.63 H D Est Cr Clr Drug Dosing 56.9 Est GFR ( Amer) 49.1 Est GFR (Non-Af Amer) 42.4 BUN/Creatinine Ratio 12.9 Glucose 180 H POC Glucose 196 H Calcium 9.0 B-Natriuretic Peptide Triglycerides Cholesterol LDL Cholesterol, Calc VLDL Cholesterol, Calc HDL Cholesterol Cholesterol/HDL Ratio TSH 07/10/21 07/10/21 07/10/21 06:09 06:09 06:12 WBC RBC Hgb Hct MCV MCH MCHC RDW Std Deviation RDW Coeff of Josh Plt Count MPV Sodium 134 L Potassium 3.9 Chloride 101 Carbon Dioxide 23 Anion Gap 10 BUN 24 H Creatinine 1.41 H Est Cr Clr Drug Dosing 65.5 Est GFR ( Amer) 58.5 Est GFR (Non-Af Amer) 50.5 BUN/Creatinine Ratio 17.0 Glucose 180 H POC Glucose 185 H Calcium 8.9 B-Natriuretic Peptide Triglycerides 88 Cholesterol 99 LDL Cholesterol, Calc 48 VLDL Cholesterol, Calc 18 HDL Cholesterol 33 Cholesterol/HDL Ratio 3.0 TSH 3.772 07/10/21 11:24 WBC RBC Hgb Hct MCV MCH MCHC RDW Std Deviation RDW Coeff of Josh Plt Count MPV Sodium Potassium Chloride Carbon Dioxide Anion Gap BUN Creatinine Est Cr Clr Drug Dosing Est GFR ( Amer) Est GFR (Non-Af Amer) BUN/Creatinine Ratio Glucose POC Glucose 194 H Calcium B-Natriuretic Peptide Triglycerides Cholesterol LDL Cholesterol, Calc VLDL Cholesterol, Calc HDL Cholesterol Cholesterol/HDL Ratio TSH Diagnostic Findings Telemetry personally reviewed: Sinus rhythm. ECG personally reviewed: ECG 07/10/2021 5:59 a.m.: Sinus rhythm 90 beats per minute. Anterolateral T-w ave abnormality. Medications Administered Current Inpatient Medications Acetaminophen (Acetaminophen 325 Mg Tab) 650 mg PO Q4H PRN PRN Reason: Pain or Fever Stop: 08/07/21 23:10 Last Admin: 07/10/21 05:55 Dose: 650 mg Documented by: Alprazolam (Alprazolam 0.5 Mg Tablet) 0.5 mg PO DAILY PRN PRN Reason: Anxiety Stop: 08/07/21 21:39 Last Admin: 07/10/21 09:48 Dose: 0.5 mg Documented by: Atorvastatin Calcium (Atorvastatin 40 Mg Tab) 80 mg PO DAILY [place] Stop: 08/08/21 08:59 Last Admin: 07/10/21 07:39 Dose: 80 mg Documented by: Dextrose (Dextrose 50% 50 Ml Syringe) 25 - 50 ml IV UD PRN; Protocol PRN Reason: Hypoglycemia Protocol Stop: 08/07/21 23:10 Furosemide (Furosemide 40 Mg/4 Ml Vial) 40 mg IV [id number] [place] Stop: 08/08/21 17:29 Last Admin: 07/10/21 13:22 Dose: 40 mg Documented by: Glucagon (Glucagon For Inj 1 Mg Vial) 1 mg SQ UD PRN; Protocol PRN Reason: Hypoglycemia Protocol Stop: 08/07/21 23:10 Glucose (Glucose 10 Tabs/Tube) 4 - 8 tabs PO UD PRN; Protocol PRN Reason: Hypoglycemia Protocol Stop: 08/07/21 23:10 Glucose (Glucose 40% Gel 15 Gm Tube) 15 - 30 gm PO UD PRN; Protocol PRN Reason: Hypoglycemia Protocol Stop: 08/07/21 23:10 Pantoprazole Sodium 40 mg/ (Syringe) 10 mls @ 5 mls/min IV BID [place] Stop: 08/07/21 21:39 Last Admin: 07/10/21 07:39 Dose: 5 mls/min Documented by: Sodium Chloride (Nss) 250 mls @ 15 mls/hr IV .[id number] PRN PRN Reason: For Transfusion Stop: 08/07/21 23:10 Insulin Aspart (Insulin Aspart Per Unit) 0 units SC ACHS [place] Stop: 08/09/21 16:29 Isosorbide Mononitrate (Isosorbide [place] Extended Rel 30 Mg Tabcr) 30 mg PO BID [place] Stop: 08/09/21 08:59 Last Admin: 07/10/21 07:39 Dose: 30 mg Documented by: Metoprolol Succinate (Metoprolol Succ 25mg Ext Rel Tab) 25 mg PO QAM [facility] Stop: 08/08/21 14:44 Last Admin: 07/10/21 07:39 Dose: 25 mg Documented by: Miscellaneous (Carbohydrates For Hypoglycemia ) 15 - 30 gm PO UD PRN PRN Reason: Hypoglycemia Protocol Stop: 08/07/21 23:10 Miscellaneous (Remove Nicoderm Patch) 1 ea N/A DAILY@0859 [facility] Stop: 08/08/21 08:58 Last Admin: 07/10/21 07:40 Dose: 1 ea Documented by: Nicotine (Nicotine 14 Mg/24 Hr Patch) 14 mg TD QAM [facility] Stop: 08/08/21 08:59 Last Admin: 07/10/21 07:40 Dose: 14 mg Documented by: Nitroglycerin (Nitroglycerin Sl 0.4 Mg/Tab Tab) 0.4 mg SL UD PRN PRN Reason: Chest Pain Stop: 08/07/21 23:10 Ondansetron HCl (Ondansetron Inj 2 Mg/Ml 2 Ml Vial) 4 mg IV Q6H PRN PRN Reason: Nausea Stop: 08/07/21 23:10 Spironolactone (Spironolactone 25 Mg Tab) 25 mg PO QAM [facility] Stop: 08/09/21 08:59 Last Admin: 07/10/21 07:39 Dose: 25 mg Documented by: PG Care Time/CCT Total # of Minutes Spent Total Time Spent with Patient: Total time spent is greater than 50% in coordination of care (as documented) at patient's floor/unit and/or counseling patient: Coding Level of Care Code 17596 Subseq Hosp Care Lvl 3 Diagnoses Acute HFrEF (heart failure with reduced ejection fraction) I50.21 Cardiomyopathy I42.9 Tobacco abuse Z72.0 HTN (hypertension) I10 Anemia D64.9 Anemia type: unspecified type (1) Anemia Anemia type: unspecified type Qualified Code(s): D64.9 - Anemia, unspecified
[2021-07-10] MEDS ORDERED: IRON SUCROSE 200 MG in 0.9 % SODIUM CHLORIDE 100 ML IV ONE (14:45)
--- NOTE | 2021-07-10 15:28 | Electrocardiogram Report ---
Test Reason : Blood Pressure : / mmHG Vent. Rate : 098 BPM Atrial Rate : 098 BPM P-R Int : 144 ms QRS Dur : 102 ms QT Int : 362 ms P-R-T Axes : 070 006 134 degrees QTc Int : 462 ms Normal sinus rhythm Possible Left atrial enlargement T wave abnormality, consider lateral ischemia Abnormal ECG No previous ECGs available Confirmed by Tim Jimenez ([id number]) on 07/10/2021 3:27:47 PM Referred By: Red Fraire Confirmed By:Tim Jimenez
--- NOTE | 2021-07-10 16:48 | Billing Data ---
Date of Service July 10, 2021 Coding Level of Care Code 93390 Subseq Hosp Care Lvl 3
--- NOTE | 2021-07-10 16:57 | Electrocardiogram Report ---
Test Reason : Blood Pressure : / mmHG Vent. Rate : 098 BPM Atrial Rate : 098 BPM P-R Int : 136 ms QRS Dur : 110 ms QT Int : 364 ms P-R-T Axes : 000 -16 212 degrees QTc Int : 464 ms Sinus rhythm Nonspecific ST abnormality T wave abnormality, consider lateral ischemia Abnormal ECG When compared with ECG of 08-JUL-2021 18:54, ST now depressed in Inferior leads Confirmed by Tim Jimenez ([id number]) on 07/10/2021 4:56:52 PM Referred By: Red Fraire Confirmed By:Tim Jimenez
--- NOTE | 2021-07-10 17:24 | Hospitalist Progress Note ---
Date of Service July 10, 2021 Assessment & Plan (1) GIB (gastrointestinal bleeding): Plan: (1) CHF exacerbation Plan: Mr. Alvarez is a 70 yo male with pmh significant for ACS, HTN, DM, PAD, 40+ pack year smoking hx, anxiety, and Iron def anemia, presents with chest pain and SOB, BALL for the past 5 days. HS Troponin slightly elevated on admission at 67, EKG with slight ST changes, similar to previous EKG in April. -Likely secondary to ischemic cardiomyopathy -trops peaked at 82, trending down to 74 -Echo with evidence of global hypokinesis, EF 25-30%, akinetic lateral LV wall. No baseline comparison. -cardiology consulted -patient will go to [facility] tomorrow AM -start nitrate 30 mg PO -Furosemide 40 mg IV QAM -resume metoprolol succinate 25 mg PO QAM -Enalapril discontinued, switching to Entresto in a.m. -continue atorvastatin 80 mg -patient educated on smoking cessation -Catheterization likely moved to Tuesday as he was not the best candidate to have catheterization done today per Cardiology and he is not emergent. (2) Anemia: Plan: -Recently diagnosed with iron deficiency anemia -Positive trace heme occult in ED -history of hemorrhoids, iron supplements -Hg 9.0, baseline. -received 2 packs of RBCs -hold off on heparin and ASA -CBC qam, hgb stable at this time (3) Elevated troponin I level: Plan: Trending down. -HS trop 67 on admission, peaked at 82 -74 latest, no longer trending (4) HTN (hypertension): Plan: Chronic. -Discontinue enalapril at this time, switch to Entresto after 36 hours of discontinuation. -resume metoprolol -Continue Imdur 30 -Lasix 40 mg BID IV (5) DM (diabetes mellitus): Plan: Chronic - A1c 9.0% -glucagon 1 mg PRN -glucose 15-30 PO PRN -Insulin Aspart Q6 (6) Hyperlipemia: Plan: Chronic -continue atorvastatin 80 mg -lipids at goal (7) Anxiety: Plan: chronic, he is quite anxious -Xanax switched to Ativan 0.5 mg 4 times daily as needed for anxiety -consider SSRI outpatient Plan: Diet: Low Sodium and DM 2 Code: Full DVT PPx: held in the setting of GI bleed (2) Anemia: (3) Chest pain: (4) Elevated troponin I level: (5) Tobacco abuse: (6) HTN (hypertension): (7) DM (diabetes mellitus): Admission and Anticipated Discharge Date Admission Date: July 08, 2021 Supervising Physician Co-Signing Physician Notes I personally examined the patient and verified all amos points of history and exam, discussed case, and agree with decision making with Dr Duvall Overall doing a bit better. Fairly anxious. Notes he has difficulty sleeping. Breathing seems to be better but cannot yet lay flat. Case discussed with cardiologyinput greatly appreciated. Case discussed with PCPhemoglobin has been in the 9 range since at least mid April, stool was heme-negative in the office, iron stores apparently low vitals noted nad heent nc at mmm bibasilar rales upper lungs clear no rhonchi no wheeze good effort no focal neuro deficits. acute (probably on chronic) CHF - strongly suspicious for underlying ischemic cardiomyopathy. Still somewhat volume overloaded. Continue to diurese, med management (for now cost / formulary checking if entresto will be affordable - if so, use; if not then VALERIE, spironolactone. Starting Entresto tomorrow presumptively imdur for now to reduce preload/reduce pressuresbut can drop this to be able to titrate Entresto higher. High intensity statin demand ischemia and highly likely ischemic cardiomyopathy - for [facility] once able to lay flat. anemia/heme (+) stools complicate management of this some, potentially - see below anemia / heme positive stools - does have hemorrhoids and reportedly takes iron as well - so might be false (+) --my biggest suspicion is he may have some degree of mild GI bleeding from something such as an AVM, versus just iron deficiency from poor nutrition (he notes that his diet might be the worst I have ever heard)but I highly doubt any significant or serious causes. Hemoglobin has been stable for at least 2 months, and it sounds like at that point it was a fairly new finding only because of not having much to compare to. Notes a colonoscopy about 5 years ago was "totally clean" although I doubt were going to be able to get records given that he does not really remember where it was other than "on [place]"probably as it relates to antiplatelets for his coronary disease I would cautiously proceed as appropriate to manage the CAD, but if stenting is required, probably opt for a bare-metal stent if at all possible to shorten the duration of unbroken antiplatelets. Definitely would want an updated colonoscopy, put until his coronary disease has been better defined, I highly doubt that he would be deemed safe for an endoscopic work-up Anxietydiscussed overall management, discussed some tools he can use even in the acute setting (writing down his thoughts prior to bed, distraction). Given that his anxiety probably is increasing his blood pressure, which is increasing afterload on his already weak heartin the acute/decompensated setting, we agreed for a short-term utilization of benzodiazepinesbut outlined to patient extremely clearly how longer-term benzodiazepines will often lead to physical dependency which can then masquerade as worse anxiety. otherwise as above Subjective Patient seen at bedside this morning. Initially nervous about getting his catheterization done today, however, cardiology deemed that his catheterization should be moved to Tuesday as he is still slightly short of breath which she is reporting today. However, his shortness of breath is much improved compared to yesterday. Patient continues to be anxious about his disposition and is requesting more antianxiety medications. Patient is understanding when we deny him these medications at this time. Otherwise has no new complaints at this time just would like to get the catheterization over with so he is not so anxious about what is going to happen to them. Review of Systems Review of Systems: All systems reviewed & are unremarkable except as noted in HPI & below Physical Exam Constitutional: WD/WN, vitals as above Eyes: PERRL, conjunctivae normal, anicteric sclerae ENMT: external ear and nose normal, oropharynx normal Neck: normal visual inspection Cardiovascular: Rate/Rhythm: regular rate Extremities: + pedal edema Gastrointestinal (Abdomen): normal bowel sounds, soft, nontender, no hepatosplenomegaly Skin: no rashes, warm and dry Psychiatric: A+Ox3, euthymic affect Results & Data Results & Data ([facility]) Vital Signs (Past 12 Hours) Vital Signs Temp Pulse Pulse Resp BP BP Pulse Ox 07/10/21 15:42 36.5 C 81 22 163/84 H 97 07/10/21 14:59 79 07/10/21 11:09 36.4 C L 92 H 21 134/80 96 07/10/21 08:00 94 H 07/10/21 07:31 36.4 C L 92 H 22 168/100 H 175/103 H 94 (1) GIB (gastrointestinal bleeding) GI bleed type/associated pathology: unspecified gastrointestinal hemorrhage type Qualified Code(s): K92.2 - Gastrointestinal hemorrhage, unspecified (2) Anemia Anemia type: unspecified type Qualified Code(s): D64.9 - Anemia, unspecified (3) Chest pain Chest pain type: unspecified Qualified Code(s): R07.9 - Chest pain, unspecified
--- NOTE | 2021-07-10 17:45 | Billing Data ---
Date of Service July 10, 2021 Coding Level of Care Code 75410 Subseq Hosp Care Lvl 3
[2021-07-10] MEDS: LORazepam 0.5 MG TAB PO PRN (20:00)
--- NOTE | 2021-07-10 22:06 | Electrocardiogram Report ---
Test Reason : Blood Pressure : / mmHG Vent. Rate : 091 BPM Atrial Rate : 096 BPM P-R Int : 000 ms QRS Dur : 108 ms QT Int : 380 ms P-R-T Axes : 000 -10 146 degrees QTc Int : 467 ms Sinus rhythm with possible accelerated junctional rhythm T wave abnormality, consider lateral ischemia Abnormal ECG When compared with ECG of 09-JUL-2021 05:03, ST less depressed in Inferior leads Confirmed by Tim Jimenez ([id number]) on 07/10/2021 10:05:15 PM Referred By: Red Fraire Confirmed By:Tim Jimenez
--- NOTE | 2021-07-10 22:14 | Electrocardiogram Report ---
Test Reason : Blood Pressure : / mmHG Vent. Rate : 090 BPM Atrial Rate : 090 BPM P-R Int : 154 ms QRS Dur : 104 ms QT Int : 378 ms P-R-T Axes : 066 -15 120 degrees QTc Int : 462 ms Normal sinus rhythm Possible Left atrial enlargement Nonspecific T wave abnormality Abnormal ECG When compared with ECG of 10-JUL-2021 05:14, Accelerated Junctional rhythm is no longer Present Confirmed by Tim Jimenez ([id number]) on 07/10/2021 10:13:54 PM Referred By: Red Frarie Confirmed By:Tim Jimenez
[2021-07-10] MEDS: PANTOprazole 40 MG TAB PO SCH (22:36)
[2021-07-11] MEDS: LORazepam 0.5 MG TAB PO PRN ×3 (01:52→21:03)
[2021-07-11] MEDS: FUROSEMIDE 40 MG/4 ML VIAL IV SCH (06:19)
[2021-07-11 08:05] LABS: Hematocrit (blood only) 34.7 % (42-52); Hemoglobin 10.8 g/dL (14.0-18.0); Mean Corpuscular Hemoglobin 22.5 pg (25-34); Mean Corpuscular Hgb Conc 31.1 g/dL (32-36); Mean Corpuscular Volume 72.4 fL (80-100); Mean Platelet Volume 10.8 fL (7.4-10.4); Platelet Count 227 K/uL (130-400); RDW Coefficient of Variation 17.4 % (11.5-14.5); RDW Standard Deviation 45.9 fL (36.4-46.3); Red Blood Count 4.79 M/uL (4.7-6.1); White Blood Count 7.69 K/uL (4.8-10.8)
[2021-07-11 08:27] LABS: BUN Creatinine Ratio 19.4 (10-20); Calcium 8.9 mg/dl (8.5-10.1); Creatinine Clr Calc Pharmacy 57.7 ml/min; Est GFR (African American) 50.2 ml/min; Est GFR (Non-African American) 43.3 ml/min; Potassium 3.6 mmol/L (3.5-5.1)
[2021-07-11] MEDS: INSULIN ASPART PER UNIT SC SCH ×4 (08:50→20:30)
[2021-07-11] MEDS: PANTOprazole 40 MG TAB PO SCH ×2 (09:33→20:13)
[2021-07-11] MEDS: ISOSORBIDE MONO EXTENDED REL 30 MG TABCR PO SCH (09:33)
--- NOTE | 2021-07-11 09:33 | Hospitalist Progress Note ---
Date of Service July 11, 2021 Assessment & Plan (1) GIB (gastrointestinal bleeding): Plan: (1) CHF exacerbation Plan: Mr. Alvarez is a 70 yo male with pmh significant for ACS, HTN, DM, PAD, 40+ pack year smoking hx, anxiety, and Iron def anemia, presents with chest pain and SOB, BALL for the past 5 days. HS Troponin slightly elevated on admission at 67, EKG with slight ST changes, similar to previous EKG in April. -Likely secondary to ischemic cardiomyopathy -trops peaked at 82, trending down to 74 -Echo with evidence of global hypokinesis, EF 25-30%, akinetic lateral LV wall. No baseline comparison. 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 Jimenez (2) Anemia: Plan: -Recently diagnosed with iron deficiency anemia -Positive trace heme occult in ED -history of hemorrhoids, iron supplements -Hg 10.8, baseline. -CBC qam, hgb stable at this time (3) Elevated troponin I level: Plan: Trending down. -HS trop 67 on admission, peaked at 82 -74 latest, no longer trending (4) HTN (hypertension): Plan: Chronic. -Begin Entresto this morning -resume metoprolol succinate, switch to 25 mg twice daily by cardiology -Continue Imdur 30 -Lasix 40 mg BID IV switched to once daily (5) DM (diabetes mellitus): Plan: Chronic - A1c 9.0% -glucagon 1 mg PRN -glucose 15-30 PO PRN -Insulin Aspart Q6 (6) Hyperlipemia: Plan: Chronic -continue atorvastatin 80 mg -lipids at goal (7) Anxiety: Plan: chronic, he is quite anxious -Xanax switched to Ativan 0.5 mg 4 times daily as needed for anxiety -consider SSRI outpatient Plan: Diet: Low Sodium and DM 2 Code: Full DVT PPx: held in the setting of GI bleed (2) Anemia: (3) Chest pain: (4) Elevated troponin I level: (5) Tobacco abuse: (6) HTN (hypertension): (7) DM (diabetes mellitus): Admission and Anticipated Discharge Date Admission Date: July 08, 2021 Supervising Physician Co-Signing Physician Notes I personally examined the patient and verified all amos points of history and exam, discussed case, and agree with decision making with Dr Eloina sims orthopnea. slept a few hours. otherwise OK vitals noted nad heent nc at mmm faint bibasilar rales upper lungs clear no rhonchi no wheeze good effort no focal neuro deficits. acute (probably on chronic) CHF - strongly suspicious for underlying ischemic cardiomyopathy.volume overload improving - continue lasix but reduce (orthopnea improved and Cr bumped slightly - favoring dry, but still faint base rales) demand ischemia and highly likely ischemic cardiomyopathy - for [facility] once able to lay flat - anticipate 07/13. anemia/heme (+) stools complicate management of this some, potentially - see below anemia / heme positive stools - does have hemorrhoids and reportedly takes iron as well - so might be false (+) --my biggest suspicion is he may have some degree of mild GI bleeding from something such as an AVM, versus just iron deficiency from poor nutrition (he notes that his diet might be the worst I have ever heard)but I highly doubt any significant or serious causes. Hemoglobin has been stable for at least 2 months, and it sounds like at that point it was a fairly new finding only because of not having much to compare to. Notes a colonoscopy about 5 years ago was "totally clean" although I doubt were going to be able to get records given that he does not really remember where it was other than "[place]"probably as it relates to antiplatelets for his coronary disease I would cautiously proceed as appropriate to manage the CAD, but if stenting is required, probably opt for a bare-metal stent if at all possible to shorten the duration of unbroken antiplatelets. Definitely would want an updated colonoscopy, put until his coronary disease has been better defined, I highly doubt that he would be deemed safe for an endoscopic work-up. Hgb stable thus far Anxietydiscussed overall management, discussed some tools he can use even in the acute setting (writing down his thoughts prior to bed, distraction). Given that his anxiety probably is increasing his blood pressure, which is increasing afterload on his already weak heartin the acute/decompensated setting, we agreed for a short-term utilization of benzodiazepinesbut on 07/10 outlined to patient extremely clearly how longer-term benzodiazepines will often lead to physical dependency which can then masquerade as worse anxiety. continue prn ativan for now though given acuity of situation otherwise as above Subjective Patient seen at bedside this morning. No acute events reported overnight. Patient seems to be less anxious today than he has been. Continues to show improved breathing and reduced orthopnea. Does not have any new symptoms to report at this time. Seems to be comfortable. Review of Systems Review of Systems: All systems reviewed & are unremarkable except as noted in HPI & below Physical Exam Constitutional: WD/WN, vitals as above Eyes: PERRL, conjunctivae normal, anicteric sclerae ENMT: external ear and nose normal, oropharynx normal Neck: normal visual inspection Cardiovascular: Rate/Rhythm: regular rate Extremities: + pedal edema Gastrointestinal (Abdomen): normal bowel sounds, soft, nontender, no hepatosplenomegaly Skin: no rashes, warm and dry Psychiatric: A+Ox3, euthymic affect Results & Data Results & Data ([facility]) Vital Signs (Past 12 Hours) Vital Signs Temp Pulse Pulse Resp BP Pulse Ox Pulse Ox 07/11/21 08:37 66 07/11/21 08:10 36.5 C 85 18 159/80 H 95 07/11/21 08:00 96 07/11/21 03:00 36.4 C L 73 16 155/80 H 95 07/10/21 23:11 94 07/10/21 23:00 36.6 C 86 20 172/93 H 94 07/10/21 22:30 76 (1) GIB (gastrointestinal bleeding) GI bleed type/associated pathology: unspecified gastrointestinal hemorrhage type Qualified Code(s): K92.2 - Gastrointestinal hemorrhage, unspecified (2) Anemia Anemia type: unspecified type Qualified Code(s): D64.9 - Anemia, unspecified (3) Chest pain Chest pain type: unspecified Qualified Code(s): R07.9 - Chest pain, unspecified
[2021-07-11] MEDS: SPIRONOLACTONE 25 MG TAB PO SCH (09:34)
[2021-07-11] MEDS: METOPROLOL SUCC 25MG EXT REL TAB PO SCH ×2 (09:34→20:13)
[2021-07-11] MEDS: VALSARTAN/SACUBITRIL 26/24MG TAB PO SCH ×2 (09:34→20:13)
[2021-07-11] MEDS: NICOTINE 14 MG/24 HR PATCH TD SCH (09:35)
[2021-07-11] MEDS: ATORVASTATIN 40 MG TAB PO SCH (09:35)
--- NOTE | 2021-07-11 12:03 | Cardiology Progress Note ---
Date of Service July 11, 2021 Assessment & Plan Admission and Anticipated Discharge Date Admission Date: July 08, 2021 Subjective Patient is feeling better. His abdominal distention is improved. His appetite is improving. His lower extremity edema although still present continues to improve. He notes he is urinating frequently. Last night the first night he has gotten 3 or 4 hours of sleep. He notes when he first came into the hospital he was actually having what he described as panic attacks because he could not breathe. Those have since resolved. He denies any chest pain just pressure chest heaviness. Denies any lightheaded dizziness presyncope syncope. he overall he is slowly improving. Is tolerating his current medical regimen. Results & Data ([facility]) Vital Signs (Past 12 Hours) Vital Signs Temp Pulse Pulse Resp BP BP Pulse Ox 07/11/21 11:09 36.5 C 75 22 133/71 94 07/11/21 08:37 66 07/11/21 08:10 36.5 C 85 18 159/80 H 95 07/11/21 08:00 07/11/21 03:00 36.4 C L 73 16 155/80 H 95 Pulse Ox 07/11/21 11:09 07/11/21 08:37 07/11/21 08:10 07/11/21 08:00 96 07/11/21 03:00 Awake alert and oriented x3. HEENT: Markedly reduced carotid upstrokes Lungs: Decreased breath sounds in the bases bilaterally no rales rhonchi or wheezing Heart: Regular rate and rhythm his heart sounds were distant there were no appreciable murmurs Abdomen: Soft distended positive bowel sounds he notes his abdomen feels less firm for him Extremities: Moderate edema of his feet with mild edema of his to his mid tibia bilaterally which is pitting Assessment & Plan (1) Acute HFrEF (heart failure with reduced ejection fraction): (2) Cardiomyopathy: (3) Tobacco abuse: (4) HTN (hypertension): (5) Anemia: Plan: ASSESSMENT/PLAN: 1. Acute heart failure with reduced EF:I agree with the primary service given his creatinine is up to 1.6 to reduce his Lasix to 40 mg IV daily. We will reduce his Imdur from 30 mg twice daily to 30 mg daily and uptitrate his Toprol to 25 mg twice daily. He was started on Entresto and this can be uptitrated as an outpatient. We will need to closely follow his renal function while here in the hospital and anticipation of his cardiac catheterization on Tuesday. low-sodium diet, less than 2000 mg daily, discussed with him. Daily weights. Strict I&Os. Fortunately at home he is consuming significant luis of processed food as he cooks for himself noting he is having rush and sausage as well as TV dinners. He will need a nutrition consult to help him improve his diet especially in light of both his diabetes and now his heart failure symptoms 2. Cardiomyopathy: Given known peripheral arterial disease and other risk factors for CAD, concerning for ischemic heart disease as playing a role.Would treat for potential CAD. High-intensity statin therapy. Not on anti-platelet therapy due to heme-positive stool and anemia. Optimize medical therapy and if no improvement over time, would qualify for ICD for primary prevention. We discussed that I would not be surprised if he had significant coronary artery disease in light of his peripheral arterial disease, longstanding diabetes, tobacco abuse and chronic kidney disease. He inquired as to what we might find with the catheterization I discussed with him options include medical therapy versus angioplasty and stenting versus the need for high risk bypass surgery if he had severe triple-vessel disease or left main disease. 3. Tobacco abuse: Recommended that he stop smoking. 4. Hypertension: Blood pressure has improved. Continue current regimen. 5. Anemia: As per primary service. Heme-positive stool but no brisk bleed or noted blood by patient. Hemoglobin has improved. s/p prbc x 2 units. Tab number images on the with you in drink will with your right. He may need iron while here in the hospital given his low MCV we will check an iron profile. 6. Disposition: Planning for cardiac catheterization on 07/13/2021. NPO after midnight on Tuesday.
--- NOTE | 2021-07-11 16:45 | Billing Data ---
Date of Service July 11, 2021 Coding Level of Care Code 01066 Subseq Hosp Care Lvl 3
[2021-07-12 06:59] LABS: Hematocrit (blood only) 36.6 % (42-52); Hemoglobin 11.4 g/dL (14.0-18.0); Mean Corpuscular Hemoglobin 22.9 pg (25-34); Mean Corpuscular Hgb Conc 31.1 g/dL (32-36); Mean Corpuscular Volume 73.6 fL (80-100); Platelet Count 212 K/uL (130-400); RDW Coefficient of Variation 18.1 % (11.5-14.5); RDW Standard Deviation 47.2 fL (36.4-46.3); Red Blood Count 4.97 M/uL (4.7-6.1); White Blood Count 6.94 K/uL (4.8-10.8)
[2021-07-12 07:20] LABS: BUN Creatinine Ratio 22.4 (10-20); Calcium 8.6 mg/dl (8.5-10.1); Creatinine Clr Calc Pharmacy 56.9 ml/min; Est GFR (African American) 51.8 ml/min; Est GFR (Non-African American) 44.7 ml/min; Potassium 3.9 mmol/L (3.5-5.1)
[2021-07-12] MEDS: INSULIN ASPART PER UNIT SC SCH ×4 (08:54→20:57)
[2021-07-12] MEDS: METOPROLOL SUCC 25MG EXT REL TAB PO SCH (08:55)
[2021-07-12] MEDS: ISOSORBIDE MONO EXTENDED REL 30 MG TABCR PO SCH (08:55)
[2021-07-12] MEDS: NICOTINE 14 MG/24 HR PATCH TD SCH (08:56)
[2021-07-12] MEDS: VALSARTAN/SACUBITRIL 26/24MG TAB PO SCH ×2 (08:56→20:56)
[2021-07-12] MEDS: PANTOprazole 40 MG TAB PO SCH ×2 (08:56→20:57)
[2021-07-12] MEDS: ATORVASTATIN 40 MG TAB PO SCH (08:56)
[2021-07-12] MEDS: SPIRONOLACTONE 25 MG TAB PO SCH (08:56)
[2021-07-12] MEDS ORDERED: FUROSEMIDE 40 MG/4 ML VIAL IV SCH (09:00)
--- NOTE | 2021-07-12 09:56 | Hospitalist Progress Note ---
Date of Service July 12, 2021 Assessment & Plan (1) GIB (gastrointestinal bleeding): Plan: (1) CHF exacerbation Plan: Mr. Alvarez is a 70 yo male with pmh significant for ACS, HTN, DM, PAD, 40+ pack year smoking hx, anxiety, and Iron def anemia, presents with chest pain and SOB, BALL for the past 5 days. HS Troponin slightly elevated on admission at 67, EKG with slight ST changes, similar to previous EKG in April. -Likely secondary to ischemic cardiomyopathy -trops peaked at 82, trending down to 74 -Echo with evidence of global hypokinesis, EF 25-30%, akinetic lateral LV wall. No baseline comparison. 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 daily switch to twice daily by cardiology -Enalapril discontinued, entresto started 07/11, tolerating well -continue atorvastatin 80 mg -patient educated on smoking cessation -Catheterization scheduled for Tuesday by Dr. Jimenez (2) Anemia, improved Plan: -Recently diagnosed with iron deficiency anemia -Positive trace heme occult in ED -history of hemorrhoids, iron supplements -Hg 11.4 -CBC qam, hgb stable at this time (3) Elevated troponin I level: Plan: Trending down. -HS trop 67 on admission, peaked at 82 -74 latest, no longer trending (4) HTN (hypertension): Plan: Chronic. -Begin Entresto 07/11 -resume metoprolol succinate, switch to 25 mg twice daily by cardiology -Continue Imdur 30 -Lasix 40 mg BID IV switched to once daily (5) DM (diabetes mellitus): Plan: Chronic - A1c 9.0% -glucagon 1 mg PRN -glucose 15-30 PO PRN -Insulin Aspart Q6 (6) Hyperlipemia: Plan: Chronic -continue atorvastatin 80 mg -lipids at goal (7) Anxiety: Plan: chronic, he is quite anxious -Xanax switched to Ativan 0.5 mg 4 times daily as needed for anxiety -consider SSRI outpatient Plan: Diet: Low Sodium and DM 2 Code: Full DVT PPx: held in the setting of GI bleed (2) Anemia: (3) Chest pain: (4) Elevated troponin I level: (5) Tobacco abuse: (6) HTN (hypertension): (7) DM (diabetes mellitus): Admission and Anticipated Discharge Date Admission Date: July 08, 2021 Supervising Physician Co-Signing Physician Notes I personally examined the patient and verified all amos points of history and exam, discussed case, and agree with decision making with Dr Duvall Overall feeling better and breathing better. Slept until about 3 AM vitals noted nad heent nc at mmm breathing unlabored no accessory muscle use good effort no focal neuro deficits. acute (probably on chronic) CHF - strongly suspicious for underlying ischemic cardiomyopathy.volume overload improving -now on Lasix 40 mg IV dailycreatinine has stabilized and its current range. Continue to follow closely. demand ischemia and highly likely ischemic cardiomyopathy - for [facility] -anticipate 07/13. anemia/heme (+) stools complicate management of this some, potentially, although I am not highly suspicious of any serious GI bleeding see below anemia / heme positive stools - does have hemorrhoids and reportedly takes iron as well - so might be false (+) --my biggest suspicion is he may have some degree of mild GI bleeding from something such as an AVM, versus just iron deficiency from poor nutrition (he notes that his diet might be the worst I have ever heard)but I highly doubt any significant or serious causes. Hemoglobin has been stable for at least 2 months, and it sounds like at that point it was a fairly new finding only because of not having much to compare to. Notes a colonoscopy about 5 years ago was "totally clean" although I doubt were going to be able to get records given that he does not really remember where it was other than "on [place]"probably as it relates to antiplatelets for his coronary disease I would cautiously proceed as appropriate to manage the CAD, but if stenting is required, probably opt for a bare-metal stent if at all possible to shorten the duration of unbroken antiplatelets. Definitely would want an updated colonoscopy, put until his coronary disease has been better defined, I highly doubt that he would be deemed safe for an endoscopic work-up. Hgb stable thus far, when I discussed with his PCP he noted that the patient was very iron deficientresident physician will be able to review those valuesif truly low, would initiate IV iron Anxietydiscussed overall management, discussed some tools he can use even in the acute setting (writing down his thoughts prior to bed, distraction). Given that his anxiety probably is increasing his blood pressure, which is increasing afterload on his already weak heartin the acute/decompensated setting, we agreed for a short-term utilization of benzodiazepinesbut on 07/10 outlined to patient extremely clearly how longer-term benzodiazepines will often lead to physical dependency which can then masquerade as worse anxiety. continue prn ativan for now though given acuity of situation, but doing better today Uncontrolled type 2 diabeteson 07/11discussed "high sugars clog arteries" as wh y to care (noting that a lot of his coronary disease would probably be from diabetes and smoking), and discussed how most of the care of type 2 diabetes can be done with diet changes alone. This particularly seems to be true with him, his A1c is 9, but his sugars since admission do not really generally reflect that poor of a degree of controlsuggesting that even a change to the hospital diet has made a significant impact on his numbers otherwise as above Subjective Patient seen at bedside this morning. Patient appears comfortable and is doing well overall. No orthopnea reported overnight. States that he feels like he is slimming down since he is losing a lot of water weight. Has no new complaints at this time. Anxiety seems to be improving as well. Catheterization by cardiology tomorrow. No new concerns discussed. Review of Systems Review of Systems: All systems reviewed & are unremarkable except as noted in HPI & below Physical Exam Constitutional: WD/WN, vitals as above Eyes: PERRL, conjunctivae normal, anicteric sclerae ENMT: external ear and nose normal, oropharynx normal Neck: normal visual inspection Respiratory: normal respiratory effort, lungs clear to auscultation Cardiovascular: Rate/Rhythm: regular rate Extremities: + pedal edema Gastrointestinal (Abdomen): normal bowel sounds, soft, nontender, no hepatosplenomegaly Skin: no rashes, warm and dry Psychiatric: A+Ox3, euthymic affect Results & Data Results & Data ([facility]) Vital Signs (Past 12 Hours) Vital Signs Temp Pulse Pulse Resp BP BP Pulse Ox 07/12/21 08:00 81 07/12/21 07:43 36.4 C L 78 18 159/79 H 95 07/12/21 03:37 36.4 C L 69 18 136/70 94 07/11/21 23:57 36.5 C 90 20 139/82 94 07/11/21 22:20 76 (1) GIB (gastrointestinal bleeding) GI bleed type/associated pathology: unspecified gastrointestinal hemorrhage type Qualified Code(s): K92.2 - Gastrointestinal hemorrhage, unspecified (2) Anemia Anemia type: unspecified type Qualified Code(s): D64.9 - Anemia, unspecified (3) Chest pain Chest pain type: unspecified Qualified Code(s): R07.9 - Chest pain, unspecified
--- NOTE | 2021-07-12 11:12 | Cardiology Progress Note ---
Date of Service July 12, 2021 Assessment & Plan Admission and Anticipated Discharge Date Admission Date: July 08, 2021 Subjective Looks better this morning. Has any chest pain or chest pressure. Her shortness of breath is improved is not short of breath talking in sentences. His abdominal distention is also better along with his improved lower extremity edema. He is negative another 2100 cc and overall is negative about 6-1/2 L this admission. Results & Data ([facility]) Vital Signs (Past 12 Hours) Vital Signs Temp Pulse Pulse Resp BP BP Pulse Ox 07/12/21 08:00 81 07/12/21 07:43 36.4 C L 78 18 159/79 H 95 07/12/21 03:37 36.4 C L 69 18 136/70 94 07/11/21 23:57 36.5 C 90 20 139/82 94 Awake alert and oriented x3. HEENT:Mildly reduced carotid upstrokes Lungs: Decreased breath sounds in the bases bilaterally no rales rhonchi or wheezing Heart: Regular rate and rhythm his heart sounds were distant there were no appreciable murmurs Abdomen: Soft distended positive bowel sounds he notes his abdomen feels less firm for him Extremities: Moderate edema of his feet with mild edema of his to his mid tibia bilaterally which is pitting Assessment & Plan (1) Acute HFrEF (heart failure with reduced ejection fraction): (2) Cardiomyopathy: (3) Tobacco abuse: (4) HTN (hypertension): (5) Anemia: Plan: ASSESSMENT/PLAN: 1. Acute heart failure with reduced EF:I agree with the primary service given his creatinine is up to 1.6 to reduce his Lasix to 40 mg IV daily. We will reduce his Imdur from 30 mg twice daily to 30 mg daily and uptitrate his Toprol to 25 mg marc ma and 50mg in the PM. I do not want to lower his blood pressure too much as I want to leave room to increase his Entresto as an outpatient. He was started on Entresto and this can be uptitrated as an outpatient. We will need to closely follow his renal function while here in the hospital (stable) and anticipation of his cardiac catheterization on Tuesday. low-sodium diet, less than 2000 mg daily, discussed with him. Daily weights. Strict I&Os. Fortunately at home he is consuming significant luis of processed food as he cooks for himself noting he is having rush and sausage as well as TV dinners. He will need a nutrition consult to help him improve his diet especially in light of both his diabetes and now his heart failure symptoms 2. Cardiomyopathy: Given known peripheral arterial disease and other risk factors for CAD, concerning for ischemic heart disease as playing a role.Would treat for potential CAD. High-intensity statin therapy. Not on anti-platelet therapy due to heme-positive stool and anemia. Optimize medical therapy and if no improvement over time, would qualify for ICD for primary prevention. We discussed that I would not be surprised if he had significant coronary artery disease in light of his peripheral arterial disease, longstanding diabetes, tobacco abuse and chronic kidney disease. He inquired as to what we might find with the catheterization I discussed with him options include medical therapy versus angioplasty and stenting versus the need for high risk bypass surgery if he had severe triple-vessel disease or left main disease. 3. Tobacco abuse: Recommended that he stop smoking. 4. Hypertension: Blood pressure has improved. Continue current regimen. 5. Anemia: As per primary service. Heme-positive stool but no brisk bleed or noted blood by patient. Hemoglobin has improved. s/p prbc x 2 units. He may need iron while here in the hospital given his low MCV we will check an iron profile. 6. Disposition: Planning for cardiac catheterization on 07/13/2021. NPO after midnight on Tuesday. We will hold his Lasix and spironolactone in anticipation of the procedure.
--- NOTE | 2021-07-12 16:15 | Billing Data ---
Date of Service July 12, 2021 Coding Level of Care Code 67576 Subseq Hosp Care Lvl 3
[2021-07-12] MEDS ORDERED: IRON SUCROSE 200 MG in 0.9 % SODIUM CHLORIDE 100 ML IV ONE (16:30)
[2021-07-12] MEDS ORDERED: METOPROLOL SUCC 50MG EXT REL TAB PO SCH (21:00)
[2021-07-12] MEDS: LORazepam 0.5 MG TAB PO PRN (23:48)
[2021-07-13] MEDS ORDERED: HEPARIN (PORCINE) 1000 UNIT/ML 10 ML (CATH LAB USE ONLY) ONE (06:52)
[2021-07-13] MEDS ORDERED: MIDAZOLAM HCL 1 MG/ML 2ML VIAL ONE ×2 (06:52→09:11)
[2021-07-13] MEDS ORDERED: niCARdipine HCL INJ 2.5 MG/ML 10 ML AMP ONE (06:52)
[2021-07-13] MEDS ORDERED: fentaNYL citrate 100 MCG/2 ML VIAL ONE (06:52)
[2021-07-13] MEDS ORDERED: NITROGLYCERIN/D5W 100MCG/ML 20ML SYR ONE (06:53)
[2021-07-13] MEDS ORDERED: LIDOCAINE 1% LOCAL 20 ML VIAL ONE (07:06)
[2021-07-13 07:26] LABS: Hematocrit (blood only) 35.1 % (42-52); Hemoglobin 11.3 g/dL (14.0-18.0); Mean Corpuscular Hemoglobin 23.6 pg (25-34); Mean Corpuscular Hgb Conc 32.2 g/dL (32-36); Mean Corpuscular Volume 73.3 fL (80-100); Platelet Count 238 K/uL (130-400); RDW Coefficient of Variation 18.4 % (11.5-14.5); RDW Standard Deviation 47.1 fL (36.4-46.3); Red Blood Count 4.79 M/uL (4.7-6.1); White Blood Count 7.14 K/uL (4.8-10.8)
[2021-07-13 07:44] LABS: BUN Creatinine Ratio 23.9 (10-20); Calcium 8.4 mg/dl (8.5-10.1); Creatinine Clr Calc Pharmacy 54.3 ml/min; Est GFR (African American) 49.1 ml/min; Est GFR (Non-African American) 42.4 ml/min; Potassium 3.7 mmol/L (3.5-5.1)
--- NOTE | 2021-07-13 07:45 | Pre Anesthesia Assessment ---
Date of Service July 13, 2021 Pre Sedation Assessment Vital Signs Temp Pulse Pulse Resp BP BP Pulse Ox 07/13/21 03:22 36.5 C 62 18 148/89 H 93 07/12/21 23:10 36.4 C L 69 18 131/78 95 07/12/21 22:25 78 07/12/21 19:58 36.6 C 78 18 130/77 94 07/12/21 18:18 89 07/12/21 15:47 36.4 C L 91 H 18 146/89 H 93 07/12/21 11:14 36.4 C L 76 18 138/83 95 07/12/21 08:00 81 Cardiovascular RRR, no murmur, no edema Respiratory normal respiratory effort, lungs clear to auscultation Pre-Sedation Airway Assessment Smoking Status: Current every day smoker Hx Sleep Apnea: No Mallampati Class: IV ASA: ASA3 NPO Status Date of Last Intake of Fluids: 07/12/21 Time of Last Intake of Fluids: 21:00 Date of Last Intake of Solid Food: 07/12/21 Time of Last Intake of Solid Foods: 21:00 Procedure Planning Contraindications for Sedation: none Current Medications Reviewed: Yes Notes The planned sedation has been discussed with the patient. Informed Consent was obtained. I have identified the patient, determined the appropriateness of sedation and have assessed the patient immediately prior to the procedure. All medicine(s) and interventions are by my order.
--- NOTE | 2021-07-13 07:54 | Cardiology Progress Note ---
Date of Service July 13, 2021 Assessment & Plan (1) Acute HFrEF (heart failure with reduced ejection fraction): (2) Cardiomyopathy: (3) Tobacco abuse: (4) HTN (hypertension): (5) Anemia: (6) CAD (coronary artery disease): Plan: ASSESSMENT/PLAN: 1. Acute heart failure with reduced EF: Appears euvolemic on exam. Labs suggest possible mild azotemia with BUN trending upward. Filling pressures mildly elevated on catheterization. Can transition to oral Lasix 40 mg once daily and further adjustments can be made as an outpatient. Continue metoprolol succinate. Can increase to 100 mg once daily on discharge. Continue Entresto which can be titrated as an outpatient. Continue spironolactone. On discharge, start ST LT 2 inhibitor (not available on formulary). Low-sodium diet, less than 2000 mg daily, discussed with him. Daily weights. Strict I&Os. 2. Cardiomyopathy: Has multivessel CAD noted on cath. Continue medical therapy as above. Recommended evaluation by CT surgery for possibility of revascularization. Monitor as an outpatient to determine if qualifies for ICD for primary prevention after further treatment with possible revascularization. 3. CAD: Severe CAD involving the LAD and circumflex. Given severely reduced LV systolic function, multivessel CAD, and diabetes, recommend evaluation by CT surgery. As per discussion this morning, he would like to be discharged home and to have this done as an outpatient. He has not had any angina and has ERUM 3 flow. Not unreasonable to discharge him with outpatient CT surgery evaluation. He would like to be seen at [facility]. Cardiology office is helping arrange this referral. If no contraindication, recommend aspirin 81 mg daily. Continue beta-claudia and high-intensity statin therapy. Recommend p.r.n. nitroglycerin on discharge. 4. Tobacco abuse: Smoking cessation. 5. Hypertension: Blood pressure has improved from presentation. He will continue to have his heart failure medications titrated as an outpatient, which should further improve his blood pressure. 6. Anemia: As per primary service. Heme-positive stool but no brisk bleed or noted blood by patient. Hemoglobin has improved. s/p prbc x 2 units. 7. Disposition: He would like to be discharged home. From a cardiac perspective, once hemostasis has been obtained from his right radial cath site, can be discharged home from a cardiac perspective. Start Lasix 40 mg p.o. once daily tomorrow. Close follow-up in the Heart failure program has already been arranged. Monitor renal function and electrolytes. Plan of care has been discussed with Dr. Duvall of the primary hospitalist service. Admission and Anticipated Discharge Date Admission Date: July 08, 2021 Subjective He feels much better. Denies shortness of breath despite walking several times daily in the hallway. Denies orthopnea, syncope, near syncope, bleeding, chest pain, and palpitations. Review of systems: As above. Physical Exam Physical Exam: Gen.: No acute distress. Alert and oriented. HEENT: Anicteric sclera. Neck: Thick neck. No appreciable JVD or hepatojugular reflux. Cardiac: Regular. Normal S1-S2. No murmurs, rubs, or gallops. Pulmonary: Clear to auscultation bilaterally without wheezes, rales, or rhonchi. Abdomen: Soft, nontender, nondistended, with normoactive bowel sounds. No bruits noted. Extremities: 2+ radial pulses bilaterally. Trace bilateral lower extremity edema. No cyanosis. Psychiatric: Affect appears appropriate. Results & Data ([facility]) Vital Signs (Past 12 Hours) Vital Signs Temp Pulse Pulse Resp BP Pulse Ox 07/13/21 03:22 36.5 C 62 18 148/89 H 93 07/12/21 23:10 36.4 C L 69 18 131/78 95 07/12/21 22:25 78 07/12/21 19:58 36.6 C 78 18 130/77 94 Intake & Output 07/11/21 07/12/21 07/13/21 07/14/21 06:59 06:59 06:59 06:59 Intake Total 990 / 990 850 / 850 735 / 735 Output Total 3350 / 3350 2950 / 2950 2525 / 2525 Balance -2360 / -2360 -2100 / -2100 -1790 / -1790 Weight 259 lb 0.69 oz 239 lb 10.279 oz 238 lb 1.588 oz Laboratory Results Laboratory Results - last 24 hr 07/12/21 07/12/21 07/12/21 11:39 11:40 16:35 WBC RBC Hgb Hct MCV MCH MCHC RDW Std Deviation RDW Coeff of Josh Plt Count Sodium Potassium Chloride Carbon Dioxide Anion Gap BUN Creatinine Est Cr Clr Drug Dosing Est GFR ( Amer) Est GFR (Non-Af Amer) BUN/Creatinine Ratio Glucose POC Glucose 267 H 246 H 176 H Calcium 07/12/21 07/13/21 07/13/21 20:20 06:51 06:51 WBC 7.14 RBC 4.79 Hgb 11.3 L Hct 35.1 L MCV 73.3 L MCH 23.6 L MCHC 32.2 RDW Std Deviation 47.1 H RDW Coeff of Josh 18.4 H Plt Count 238 Sodium 136 Potassium 3.7 Chloride 102 Carbon Dioxide 24 Anion Gap 10 BUN 39 H Creatinine 1.63 H Est Cr Clr Drug Dosing 54.3 Est GFR ( Amer) 49.1 Est GFR (Non-Af Amer) 42.4 BUN/Creatinine Ratio 23.9 H Glucose 178 H POC Glucose 175 H Calcium 8.4 L 07/13/21 07:05 WBC RBC Hgb Hct MCV MCH MCHC RDW Std Deviation RDW Coeff of Josh Plt Count Sodium Potassium Chloride Carbon Dioxide Anion Gap BUN Creatinine Est Cr Clr Drug Dosing Est GFR ( Amer) Est GFR (Non-Af Amer) BUN/Creatinine Ratio Glucose POC Glucose 182 H Calcium Diagnostic Findings Cardiac Cath 07/13/21: Coronary angiography: 1. Left main: No significant CAD. 2. Left anterior descending: Diffuse mild CAD throughout the LAD. Late proximal LAD 50 to 70% at bifurcation of small D1. Mid LAD 30 to 40% followed by late mid LAD 50%. Small D2 and small D3. ERUM-3 flow. 3. Circumflex: Proximal circumflex 70 to 80%. Diffuse mild CAD throughout the circumflex. Mid circumflex 70% and 70 to 80% stenotic lesions. ERUM-3 flow. 4. Right coronary artery: RCA is large and dominant. Diffuse mild CAD throughout the RCA. Sequential mid RCA 30 to 40% and 40% stenotic areas. PDA and PL branches without significant CAD. Decision to proceed with FFR of LAD. Procedure: -Left main cannulated with EBU 3.5 guide -BMW wire placed into distal LAD -ACIST Catheter placed across stenosis -Pd/Pa 0.74 -FFR 0.66 Left heart catheterization: 1. Left ventriculography was not performed. 2. No aortic stenosis. 3. LVEDP 17 mmHg. Right heart catheterization: 1. Pulmonary capillary wedge pressure: V wave 23 with a mean of 19 mmHg. 2. PA pressure: 39/14 with a mean of 22 mmHg. 3. RV pressure: 35/1 with EDP 10 mmHg. 4. Right atrial pressure: A wave 9, V wave 6, mean 5 mmHg. 5. Cardiac output via thermodilution was 4.27 L/min with a cardiac index of 1.86 L/min/m. 6. Cardiac output via Di was 5.48 L/min with a cardiac index of 2.39 L/min/m. 7. PVR 0.7 Wood units. Medications Administered Current Inpatient Medications Acetaminophen (Acetaminophen 325 Mg Tab) 650 mg PO Q4H PRN PRN Reason: Pain or Fever Stop: 08/07/21 23:10 Last Admin: 07/10/21 23:49 Dose: 650 mg Documented by: Atorvastatin Calcium (Atorvastatin 40 Mg Tab) 80 mg PO DAILY [facility] Stop: 08/08/21 08:59 Last Admin: 07/12/21 08:56 Dose: 80 mg Documented by: Dextrose (Dextrose 50% 50 Ml Syringe) 25 - 50 ml IV UD PRN; Protocol PRN Reason: Hypoglycemia Protocol Stop: 08/07/21 23:10 Furosemide (Furosemide 40 Mg/4 Ml Vial) 40 mg IV QAM [facility] Stop: 08/11/21 08:59 Last Admin: 07/12/21 08:56 Dose: 40 mg Documented by: Glucagon (Glucagon For Inj 1 Mg Vial) 1 mg SQ UD PRN; Protocol PRN Reason: Hypoglycemia Protocol Stop: 08/07/21 23:10 Glucose (Glucose 10 Tabs/Tube) 4 - 8 tabs PO UD PRN; Protocol PRN Reason: Hypoglycemia Protocol Stop: 08/07/21 23:10 Glucose (Glucose 40% Gel 15 Gm Tube) 15 - 30 gm PO UD PRN; Protocol PRN Reason: Hypoglycemia Protocol Stop: 08/07/21 23:10 Sodium Chloride (Nss) 250 mls @ 15 mls/hr IV .[id number] PRN PRN Reason: For Transfusion Stop: 08/07/21 23:10 Insulin Aspart (Insulin Aspart Per Unit) 0 units SC ACHS [facility] Stop: 08/09/21 16:29 Last Admin: 07/12/21 20:57 Dose: 1 units Documented by: Isosorbide Mononitrate (Isosorbide [place] Extended Rel 30 Mg Tabcr) 30 mg PO DAILY [facility] Stop: 08/11/21 08:59 Last Admin: 07/12/21 08:55 Dose: 30 mg Documented by: Lorazepam (Lorazepam 0.5 Mg Tab) 0.5 mg PO QID PRN PRN Reason: Anxiety Stop: 08/09/21 16:47 Last Admin: 07/12/21 23:48 Dose: 0.5 mg Documented by: Metoprolol Succinate (Metoprolol Succ 25mg Ext Rel Tab) 25 mg PO QAM [facility] Stop: 08/12/21 08:59 Metoprolol Succinate (Metoprolol Succ 50mg Ext Rel Tab) 50 mg PO HS [facility] Stop: 08/11/21 20:59 Last Admin: 07/12/21 20:56 Dose: 50 mg Documented by: Miscellaneous (Carbohydrates For Hypoglycemia ) 15 - 30 gm PO UD PRN PRN Reason: Hypoglycemia Protocol Stop: 08/07/21 23:10 Miscellaneous (Remove Nicoderm Patch) 1 ea N/A DAILY@0859 [facility] Stop: 08/08/21 08:58 Last Admin: 07/12/21 08:55 Dose: 1 ea Documented by: Nicotine (Nicotine 14 Mg/24 Hr Patch) 14 mg TD QAM [facility] Stop: 08/08/21 08:59 Last Admin: 07/12/21 08:56 Dose: 14 mg Documented by: Nitroglycerin (Nitroglycerin Sl 0.4 Mg/Tab Tab) 0.4 mg SL UD PRN PRN Reason: Chest Pain Stop: 08/07/21 23:10 Ondansetron HCl (Ondansetron Inj 2 Mg/Ml 2 Ml Vial) 4 mg IV Q6H PRN PRN Reason: Nausea Stop: 08/07/21 23:10 Pantoprazole Sodium (Pantoprazole 40 Mg Tab) 40 mg PO BID [facility] Stop: 08/09/21 20:59 Last Admin: 07/12/21 20:57 Dose: 40 mg Documented by: Sacubitril/Valsartan (Valsartan/Sacubitril 26/24mg Tab) 1 tab PO BID [facility] Stop: 08/10/21 08:59 Last Admin: 07/12/21 20:56 Dose: 1 tab Documented by: Spironolactone (Spironolactone 25 Mg Tab) 25 mg PO QAM [facility] Stop: 08/09/21 08:59 Last Admin: 07/12/21 08:56 Dose: 25 mg Documented by: PG Care Time/CCT Total # of Minutes Spent Total Time Spent with Patient: Total time spent is greater than 50% in coordination of care (as documented) at patient's floor/unit and/or counseling patient: Coding Level of Care Code 98721 Subseq Hosp Care Lvl 3 Diagnoses Acute HFrEF (heart failure with reduced ejection fraction) I50.21 Cardiomyopathy I42.9 Tobacco abuse Z72.0 HTN (hypertension) I10 Anemia D64.9 Anemia type: unspecified type CAD (coronary artery disease) I25.10 (1) Anemia Anemia type: unspecified type Qualified Code(s): D64.9 - Anemia, unspecified
[2021-07-13] MEDS ORDERED: METOPROLOL SUCC 25MG EXT REL TAB PO SCH (09:00)
[2021-07-13] MEDS ORDERED: ADENOSINE IV SOLN 3 MG/ML 20 ML VIAL IV ONE (09:00)
[2021-07-13 09:03] LABS: iSTAT Arterial Blood Gas HCO3 24 meg/L (19-24); iSTAT Arterial Blood Gas pCO2 41 mmHg (35-46); iSTAT Arterial Blood Gas pH 7.39 (7.35-7.45); iSTAT Arterial Blood Gas pO2 49 mmHg (80-95); iSTAT Carbon Dioxide 26 mmol/L (24-31); iSTAT Hematocrit 35 % (42-52); iSTAT Hemoglobin 11.9 g/dl (14.0-18.0); iSTAT Potassium 3.5 mmol/L (3.3-5.0); iSTAT Sodium 141 mmol/L (135-144)
--- NOTE | 2021-07-13 09:16 | Cardiac Catheterization ---
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 Cardiac Status Clinical evaluation leading to the procedure CAD Presenation: No Sxs, No angina Anginal Classification: No Symptoms Heart Failure: NYHA Class: CCS IV Cardiogenic Shock within 24 Hours: No Cardiac Arrest within 24 Hours: No Imaging Studies Past 6 Months: Yes Stress Studies Past 6 Months: No Coronary Anatomy Dominant: Right Diagnostic Physicians Name: Tim Jimenez MD Status: Elective Closure Device Percutaneous Entry Location: Radial Closure Device: Radial Band Recommendations: Management Recommendatons Cardiac Cath Procedure Full Procedure Date July 13, 2021 Pre-Procedure Diagnosis Pre-Procedure Diagnosis: CHF and Cardiomyopathy AUC Score AUC Score: 7 Post-Procedure Diagnosis Post-Procedure Diagnosis: Severe CAD Procedure(s) Performed Procedure(s) Performed: Coronary Angiography, Left Heart Cath, Right Heart Cath and Ultrasound Guided Vascular Access Scout Leaser Tim Jimenez MD Grip Assembler(s) Keagan Estimated Blood Loss Estimated Blood Loss: < 25 ml Medication(s) Medication(s): Fentanyl, Heparin, Lidocaine 1%, Nicardipine and Versed Summary of Findings Procedures: 1. Coronary angiography 2. Left heart catheterization 3. Right heart catheterization 4. Ultrasound guidance for vascular access 5. Moderate sedation Coronary angiography: 1. Left main: No significant CAD. 2. Left anterior descending: Diffuse mild CAD throughout the LAD. Late proximal LAD 50 to 70% at bifurcation of small D1. Mid LAD 30 to 40% followed by late mid LAD 50%. Small D2 and small D3. ERUM-3 flow. 3. Circumflex: Proximal circumflex 70 to 80%. Diffuse mild CAD throughout the circumflex. Mid circumflex 70% and 70 to 80% stenotic lesions. ERUM-3 flow. 4. Right coronary artery: RCA is large and dominant. Diffuse mild CAD throughout the RCA. Sequential mid RCA 30 to 40% and 40% stenotic areas. PDA and PL branches without significant CAD. Left heart catheterization: 1. Left ventriculography was not performed. 2. No aortic stenosis. 3. LVEDP 17 mmHg. Right heart catheterization: 1. Pulmonary capillary wedge pressure: V wave 23 with a mean of 19 mmHg. 2. PA pressure: 39/14 with a mean of 22 mmHg. 3. RV pressure: 35/1 with EDP 10 mmHg. 4. Right atrial pressure: A wave 9, V wave 6, mean 5 mmHg. 5. Cardiac output via thermodilution was 4.27 L/min with a cardiac index of 1.86 L/min/m. 6. Cardiac output via Di was 5.48 L/min with a cardiac index of 2.39 L/min/m. 7. PVR 0.7 Wood units. Ultrasound guidance for vascular access: 1. Right brachiocephalic vein was accessed under direct visualization via ultrasound. 6 Irish sheath was successfully advanced over a wire. Moderate sedation: 1. Sedation start time: 8:24 AM 2. Sedation end time: 9:05 AM Impression: 1. Severe CAD involving circumflex. 2. Moderate to severe CAD involving the LAD. 3. Otherwise, nonobstructive CAD. 4. No aortic stenosis. 5. Mildly elevated left-sided filling pressures. 6. Reduced cardiac output via thermodilution. Plan: 1. Dr. Atkins of interventional cardiology was asked to further investigate the LAD CAD and plans to perform FFR. 2. Risk factor modification. 3. Optimize heart failure therapy. Hemodynamics Rest Ao:: 135/63 Final Ao: 142/60 LV: 139/5/17 Recommendations Recommendations: Management Recommendatons Specimens Specimens: None Radiation Exposure (mGy) 965 mGy. Fluoro time 3.5 min. Contrast (mls) 80 ml Procedural Complication(s) None Disposition PCU I attest to the content of the Intraoperative Record and any orders documented therein. Any exceptions are noted below. [facility] Card Cath Procedure Codes Cardiac Catheterization Procedure 1: Cardiovascular Cath Procedures: 78779 Coronaries & LHC (+/-LV) & RHC Therapeutic Services & Ancillary Proc Procedure 1: Cardiovascular Tx and Anc Procedures: 39764 Ultrasonic Guidance Vascular Access Moderate Sedation Procedure 1: Sedation/Anesthesia: 16379 Mod Sedation by the same physician;Init15 Min Child Age 5 & Up Procedure 2: Sedation/Anesthesia: 15692 Mod Sedation by the same physician; Ea [id number] Minutes PG Care Time/CCT Total # of Minutes Spent Total Time Spent with Patient: Total time spent is greater than 50% in coordination of care (as documented) at patient's floor/unit and/or counseling patient:
[2021-07-13] MEDS ORDERED: SODIUM CHLORIDE 0.9% 1000ML 1,000 ML IV SCH (09:30)
--- NOTE | 2021-07-13 09:30 | Post Anesthesia Assessment ---
Date of Service July 13, 2021 Post Sedation Assessment Vital Signs Temp Pulse Pulse Resp BP BP BP 07/13/21 07:52 88 20 145/109 H 07/13/21 03:22 97.7 F 62 18 148/89 H 07/12/21 23:10 97.5 F L 69 18 131/78 07/12/21 22:25 78 07/12/21 19:58 97.9 F 78 18 130/77 07/12/21 18:18 89 07/12/21 15:47 97.5 F L 91 H 18 146/89 H 07/12/21 11:14 97.5 F L 76 18 138/83 Pulse Ox 07/13/21 07:52 99 07/13/21 03:22 93 07/12/21 23:10 95 07/12/21 22:25 07/12/21 19:58 94 07/12/21 18:18 07/12/21 15:47 93 07/12/21 11:14 95 Recovery Score Activity: Moves 4 extremities Respiration: Deep Breath/Cough Circulation: +/-20% PreAnes Value Consciousness: Fully Awake Oxygen Saturation: O2 needed for >90% Discharge Sedation Level of Care: Fast Track Phase II Post Sedation Plan On clinical assessment, the patient appears to have tolerated the sedation without complications. Patient is recovering as anticipated. Patient will continue to be monitored by nursing and may be discharged when sedation discharge criteria are met per below protocol. Upon Completions of procedure up to 15 minutes continue every 5 minute vital signs and the P.A.R. score; then discharge to a Phase I or Fast Track to Phase II per the following guidelines: * Discharge Patient to appropriate Phase II area if PAR is 8 or greater or return to pre- procedure baseline. The post - procedure orders will be as directed. * If PAR score is less than 8 or not return to pre-procedure baseline then patient will follow Phase I monitoring till PAR is reached for Phase II. The Phase I may be done in procedure room or may call to secure a Phase I area. * If naloxone or flumazenil are used for reversal, hold in Phase I for continued monitoring from when last reversal dose was given for a minimum of 60 minutes or longer pending the nurse and/or physician discretion of patient condition before discharge to Phase II. Please call the Sedation Physician to re-evaluate and complete post-note for discharge to Phase II area. Do NOT discharge from procedure sedation or Phase 1 until post- sedation evaluation note is complete by procedure /sedation MD Sedation Discharge Instructions to be given to the patient at discharge to home.
--- NOTE | 2021-07-13 09:33 | Cardiac Catheterization ---
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 Cardiac Status Clinical evaluation leading to the procedure CAD Presenation: Non STEMI Diagnostic Physicians Name: Elmer Atkins MD Closure Device Recommendations: CABG Cardiac Cath Procedure Full Procedure Date July 13, 2021 Pre-Procedure Diagnosis Pre-Procedure Diagnosis: Cardiomyopathy AUC Score AUC Score: 7 Post-Procedure Diagnosis Post-Procedure Diagnosis: Severe CAD Procedure(s) Performed Procedure(s) Performed: Coronary Angiography and Fractional Flow [place] Reel Cutter Elmer Atkins MD Political Advisor(s) Keagan Estimated Blood Loss Estimated Blood Loss: < 25 ml Medication(s) Medication(s): Fentanyl, Heparin and Versed Summary of Findings For full details of patient's coronary angiography please see cath report dictated by Dr. Jimenez. Briefly, patient with diabetes and severe LV dysfunction. Found to have severe circumflex disease and intermediate LAD disease angiographically. Decision to proceed with FFR of LAD. Procedure: -Left main cannulated with EBU 3.5 guide -BMW wire placed into distal LAD -ACIST Catheter placed across stenosis -Pd/Pa 0.74 -FFR 0.66 -Coronary angiography revealed no apparent complications post wire/catheter removal Summary: 1. Severe multivessel coronary artery disease Severe proximal to mid LAD (FFR 0.66) 70 to 80% diffuse proximal/mid circumflex Recommendations: CABG evaluation Hemodynamics Rest Ao:: 127/61/86 Final Ao: 160/60/100 LV: -- Recommendations Recommendations: CABG Specimens Specimens: None Radiation Exposure (mGy) 1511 Contrast (mls) 90 Anesthesia Moderate [id number] Procedural Complication(s) None Disposition PCU I attest to the content of the Intraoperative Record and any orders documented therein. Any exceptions are noted below. [facility] Card Cath Procedure Codes Cardiac Catheterization Procedure 1: Cardiovascular Cath Procedures: 53736 (Doppler) Pressure Wire Moderate Sedation Procedure 1: Sedation/Anesthesia: 78996 Mod Sedation by the same physician;Init15 Min Child Age 5 & Up PG Care Time/CCT Total # of Minutes Spent Total Time Spent with Patient: Total time spent is greater than 50% in coordination of care (as documented) at patient's floor/unit and/or counseling patient:
[2021-07-13 09:44] LABS: iSTAT Arterial Blood Gas HCO3 26 meg/L (19-24); iSTAT Arterial Blood Gas pCO2 43 mmHg (35-46); iSTAT Arterial Blood Gas pH 7.39 (7.35-7.45); iSTAT Arterial Blood Gas pO2 33 mmHg (80-95); iSTAT Carbon Dioxide 27 mmol/L (24-31); iSTAT Hematocrit 36 % (42-52); iSTAT Hemoglobin 12.2 g/dl (14.0-18.0); iSTAT Potassium 3.7 mmol/L (3.3-5.0); iSTAT Sodium 139 mmol/L (135-144)
--- NOTE | 2021-07-13 09:49 | Post Anesthesia Assessment ---
Date of Service July 13, 2021 Post Sedation Assessment Vital Signs Temp Pulse Pulse Pulse Resp BP BP 07/13/21 09:45 67 16 155/73 H 07/13/21 09:44 66 18 141/84 H 07/13/21 09:30 67 16 155/73 H 07/13/21 07:52 88 20 145/109 H 07/13/21 03:22 36.5 C 62 18 07/12/21 23:10 36.4 C L 69 18 07/12/21 22:25 78 07/12/21 19:58 36.6 C 78 18 07/12/21 18:18 89 07/12/21 15:47 36.4 C L 91 H 18 07/12/21 11:14 36.4 C L 76 18 138/83 BP Pulse Ox 07/13/21 09:45 90 07/13/21 09:44 96 07/13/21 09:30 90 07/13/21 07:52 99 07/13/21 03:22 148/89 H 93 07/12/21 23:10 131/78 95 07/12/21 22:25 07/12/21 19:58 130/77 94 07/12/21 18:18 07/12/21 15:47 146/89 H 93 07/12/21 11:14 95 Recovery Score Activity: Moves 4 extremities Respiration: Deep Breath/Cough Circulation: +/-20% PreAnes Value Consciousness: Fully Awake Oxygen Saturation: > 92% On Room Air Post Anesthesia Score: 10 Discharge Sedation Level of Care: Fast Track Phase II Post Sedation Plan On clinical assessment, the patient appears to have tolerated the sedation without complications. Patient is recovering as anticipated. Patient will continue to be monitored by nursing and may be discharged when sedation discharge criteria are met per below protocol. Upon Completions of procedure up to 15 minutes continue every 5 minute vital signs and the P.A.R. score; then discharge to a Phase I or Fast Track to Phase II per the following guidelines: * Discharge Patient to appropriate Phase II area if PAR is 8 or greater or return to pre- procedure baseline. The post - procedure orders will be as directed. * If PAR score is less than 8 or not return to pre-procedure baseline then patient will follow Phase I monitoring till PAR is reached for Phase II. The Phase I may be done in procedure room or may call to secure a Phase I area. * If naloxone or flumazenil are used for reversal, hold in Phase I for continued monitoring from when last reversal dose was given for a minimum of 60 minutes or longer pending the nurse and/or physician discretion of patient condition before discharge to Phase II. Please call the Sedation Physician to re-evaluate and complete post-note for discharge to Phase II area. Do NOT discharge from procedure sedation or Phase 1 until post- sedation evaluation note is complete by procedure /sedation MD Sedation Discharge Instructions to be given to the patient at discharge to home.
[2021-07-13] MEDS: INSULIN ASPART PER UNIT SC SCH ×2 (10:11→12:31)
[2021-07-13] MEDS: ISOSORBIDE MONO EXTENDED REL 30 MG TABCR PO SCH (10:12)
[2021-07-13] MEDS: VALSARTAN/SACUBITRIL 26/24MG TAB PO SCH (10:12)
[2021-07-13] MEDS: PANTOprazole 40 MG TAB PO SCH (10:12)
[2021-07-13] MEDS: ATORVASTATIN 40 MG TAB PO SCH (10:12)
[2021-07-13] MEDS: NICOTINE 14 MG/24 HR PATCH TD SCH (10:13)
--- NOTE | 2021-07-13 14:18 | Discharge Summary ---
Date of Service July 13, 2021 Admission HPI Per Admitting Provider 70 yo M history of tobacco use disorder, hypertension, peripheral arterial disease, type 2 diabetes, recent diagnosis of iron deficiency anemia presented to the ER for shortness of breath worsening over the last several days and specifically worst with lying flat, as well as several episodes of chest pain (no active chest pain when evaluated by ER provider or by myself). In the ER patient was noted to be saturating well on room air, mildly tachycardic, elevated blood pressure to 200s/100s. Lab work notable for hemoglobin 8.5 with microcytic MCV; decreased compared to outside records of hemoglobin 9.0 in April 2021. High-sensitivity troponin is 67.3. Chest x-ray showed cardiomegaly with pulmonary vascular congestion. Given low hemoglobin, Hemoccult was done by ER provider which was trace positive with brown stool. EKG done with nonspecific lateral ST depressions with T wave changes, similar to previous EKG in April 2021 from outside EMR.Hospitalist service was consulted for blood loss anemia from suspected GI source, as well as NSTEMI. Principal Diagnosis Acute decompensated congestive heart failure Discharge Exam Constitutional WD/WN, vitals as above Eyes + anicteric sclerae Neck trachea midline, no thyromegaly Respiratory normal respiratory effort, lungs clear to auscultation Cardiovascular Rate/Rhythm: regular rate and regular rhythm Extremities: + edema Gastrointestinal (Abdomen) normal bowel sounds, soft, nontender, no hepatosplenomegaly Musculoskeletal Head/Neck/Chest: normocephalic and head atraumatic Skin Multiple areas of ecchymoses on the right upper extremity from catheterization Neurologic moves all extremities Psychiatric A+Ox3, euthymic affect Discharge Data Allergies Allergy/AdvReac Type Severity Reaction Status Date / Time cat dander Allergy Intermediate CONGESTION Verified 07/08/21 20:10 Consultations 07/08/21 20:46 ED Decision to Admit Stat 07/08/21 21:40 Consult Cardiology Routine Procedures Performed Operation Date: 07/13/21 08:00 Actual Procedures s Cineradiography w/Routine Exam - Tim Jimenez MD s Ultrasound Vascular Access - Tim Jimenez MD s Fraction Flow Macy SGL Ves - Red Atkins MD p Cath, Right and Left Heart - Tim Jimenez MD Ordered Studies 07/13/21 06:58 CL Cath Imgs for PACS use only Routine Diabetes Follow up Diabetes Follow-up Needed for HgbA1c >9% Hospital Course (1) GIB (gastrointestinal bleeding): (1) CHF exacerbation Plan: Mr. Alvarez is a 70 yo male with pmh significant for ACS, HTN, DM, PAD, 40+ pack year smoking hx, anxiety, and Iron def anemia, presents with chest pain and SOB, BALL for the past 5 days. HS Troponin slightly elevated on admission at 67, EKG with slight ST changes, similar to previous EKG in April. -Likely secondary to ischemic cardiomyopathy -trops peaked at 82, trending down to 74 -Echo with evidence of global hypokinesis, EF 25-30%, akinetic lateral LV wall. No baseline comparison. -cardiology consulted -Catheterization revealed: 1. Left main: No significant CAD. 2. Left anterior descending: Diffuse mild CAD throughout the LAD. Late proximal LAD 50 to 70% at bifurcation of small D1. Mid LAD 30 to 40% followed by late mid LAD 50%. Small D2 and small D3. ERUM-3 flow. 3. Circumflex: Proximal circumflex 70 to 80%. Diffuse mild CAD throughout the circumflex. Mid circumflex 70% and 70 to 80% stenotic lesions. ERUM-3 flow. 4. Right coronary artery: RCA is large and dominant. Diffuse mild CAD throughout the RCA. Sequential mid RCA 30 to 40% and 40% stenotic areas. PDA and PL branches without significant CAD. -Due to no acute chest pain and immediate need for intervention, discharge patient home today with the following medication changes: -continue nitrate 30 mg PO -Furosemide 40 mg PO QAM -Metoprolol succinate 100 mg p.o. daily -entresto 49 mg/51 mg twice daily -continue atorvastatin 80 mg -Diabetic regimen is now: Metformin 1000 mg twice daily, Jardiance 10 mg daily. Consider changing metformin if GFR goes below 30 -Continue aspirin, Plavix -Patient has follow-up with heart failure clinic on 07/20 -Follow-up with primary care provider within 1 week -Cardiology setting up referral to [facility] for consultation regarding need for angioplasty -BMP in 1 week (2) Anemia, improved Plan: -Recently diagnosed with iron deficiency anemia -Positive trace heme occult in ED -history of hemorrhoids, iron supplements -Hg 11.4 -Sent home with oral iron supplementation every other day sent to pharmacy (3) Elevated troponin I level: Plan: Trending down. -HS trop 67 on admission, peaked at 82 -74 latest, no longer trending (4) HTN (hypertension): Plan: Chronic. -Began Entresto 07/11 -resume metoprolol succinate -Continue Imdur 30 -Lasix 40 mg PO qd (5) DM (diabetes mellitus): Plan: Chronic - A1c 9.0% -Discharged home on metformin and Jardiance as above (6) Hyperlipemia: Plan: Chronic -continue atorvastatin 80 mg -lipids at goal (7) Anxiety: Plan: chronic, he is quite anxious -Xanax switched to Ativan 0.5 mg 4 times daily as needed for anxiety in hospital -consider SSRI outpatient (8) Acute kidney failure, on CKD stage IIIII - Monitor Cr as outpatient, edwin in light of Lasix - Metformin may need to be adjusted or discontinued Plan: Code: Full (2) Anemia: (3) Chest pain: (4) Elevated troponin I level: (5) Tobacco abuse: (6) HTN (hypertension): (7) DM (diabetes mellitus): Total Time Total Time Spent Total Time Spent (In Minutes): 30 Discharge Plan Discharge Items Patient Disposition: Home - Self-Care Reason For Visit: NSTEMI, GI BLEED Discharge Diagnosis: CHF exacerbation Activity: Resume your previous activity Non-emergency contact: Primary Care Provider and Face Man Call non-emergency contact if: you have any medication questions and your symptoms worsen Follow-up/Referrals: Red Fraire MD [Primary Care Provider] - Divya Milligan PA-C [Physician Lining Layer] - 07/20/21 10:30 am (Congestive Heart Failure Program Appointment Information Early follow up is essential to managing your heart failure. An appointment has been scheduled for you with the [facility] Heart Failure Program within 7 days of discharge. Anticipate this visit to be 30-60 minutes long. Please expect a housekeeping lead phone call from one of our nurses approximately 48 hours from discharge. They will also be placing an order for lab work to be completed 1-2 days prior to your heart failure follow up appointment. Please be sure to have this done so we can go over the results when you come in. Office Location The cardiology office building is located in front of the hospital at [address] Bring the following with you to your follow-up doctor appointments: Please bring your daily weight log any discharge paperwork all of your medication bottles with you to this visit. ) Diet: Carb Consistent or DM2 and Heart Healthy Ambulatory Orders: Basic Metabolic Panel (Routine) Timeframe: 5 Days Location: Determined by Patient Ordered By: Geri Hardwick Attending Provider Instructions: ACTIVITY RECOMMENDATIONS: Excess manipulation of the wrist should be avoided for the next 24-48 hours. * No lifting over 2 pounds (approximately a 1/2 gallon of milk) with the utilized arm for 24 hours. * No strenuous activity such as bowling or tennis for 3 days. * Keep the site of the procedure covered with a bandage for 24 hours. *You may shower the day after the procedure. Do not take a tub bath or submerge the puncture site in water for the next 3 days. *Do not operate any motorized equipment for 3 days. SPECIAL CARE INSTRUCTIONS: The site may be slightly bruised and sore following your procedure. Should any of the following occur, contact the Dr. who performed your procedure. 1. Redness/inflammation, swelling, chills, or fever, or colored drainage at procedure site within 3-7 days after your procedure. 2. Coldness, discoloration, ongoing numbness, severe pain, or swelling. Expect mild tingling of hand and tenderness at the puncture site for up to three days. If this persists beyond three days, or other symptoms develop, notify the Dr. who performed your procedure. BLEEDING: If the procedure site on your wrist begins to bleed, do not panic 1. Place 1 or 2 fingers firmly just slightly above the insertion site to stop the bleeding. You may be able to feel your pulse as you hold pressure. 2. Lift your finger after 5 minutes to see if the bleeding has stopped. 3. Once the bleeding has stopped, gently wipe the wrist area clean with a bandage. * If the bleeding from your wrist does not stop after 10 minutes, or if there is a large amount of bleeding or spurting, call 911 (do not drive yourself to the hospital). SKIN IRRITATION: * You may experience some redness and/or swelling in the area where radiation was administered. If any skin irritation occurs, please contact your family physician. FOLLOW UP VISIT: 1. Heart Failure Program on 07/20/2021 at 10:30 AM with Divya Milligan. 2. Will help arrange CT surgery appointment at [facility] as per your wishes. 3. Keep any scheduled doctor appointments. Addtl C++ Quant Developer Provider Instructions: You were hospitalized at [facility] due to shortness of b reath. The cause of your symptoms was likely due to an exacerbation of underlying congestive heart failure. Congestive heart failure occurs when the heart cannot pump blood as efficiently as it used to - in other words, it gets "congested"or backed up, with blood. We want you to begin taking a medication, lasix, 40 mg daily. This medication, known as a "water pill," will help prevent your heart from filling up with fluid. Next, we want you to follow up in the [facility] heart failure clinic with Divya Milligan. An appointment has been arranged for you on 07/20/21. We want you to STOP your enalapril and begin the medication ENTRESTO 24/26mg twice daily. Entresto is known to provide benefit in patient's with congestive heart failure. We also recommend you make an effort to reduce your dietary sodium intake, as this can worsen your heart's function. We recommend you consume less than 2 grams of sodium per day. You had a heart catheterization, a procedure that allows us to look at the coronary arteries (the arteries that carry blood to the heart muscle itself). Several of them were partially blocked with plaque. For this reason, we want to you to follow up with [facility] for consideration of a possible bypass procedure (where a vessel from another part of the body is stitched onto the heart, functioning as a conduit for blood). You have several medical conditions that are contributing to the blockage of your coronary arteries. First, your diabetes is certainly contributing: we would like to make the following changes to your medication regimen. - Please STOP your glipizide. - Please STOP your Actos-Metformin combination pill. The Actos component can worsen your congestive heart failure. - We will prescribe you a new script for metformin - please take 1000mg twice daily starting on 07/15/21. You need to wait at least 48 hours after a heart catheterization before starting to take metformin. - We would also like to start you on a new medication known as Jardiance. Please take 10mg once daily. Next, your tobacco use is undoubtedly having a negative effect on your heart and lungs. We highly recommend cessation of tobacco. Quitting smoking is the best overall step you can take to improve your health. You can work with you primary care provider to become tobacco free. - Please continue your atorvastatin, baby aspirin and clopidogrel as directed. - Please continue to take metoprolol 100 mg once daily - Please continue to take Imdur, 30mg daily. - Please continue to take spironolactone 25m daily. You were found to be anemic on arrival (having a low hemoglobin level, which is the oxygen carrying component of blood). You were transfused with two units of RBCs from a donor to increase your blood stores. You want you to begin taking an oral iron supplement, ferrous sulfate 325mg daily. You will need to have your blood drawn in 1 week. An order has been placed for this. Please follow up with your primary care provider, Dr. Fraire in a week. Pending Studies at Discharge: No Stand-Alone Forms: My [facility], Smoking Cessation Medications and DC Order Prescriptions: New furosemide 40 mg Tablet 40 mg PO QAM Qty: 30 RF: 2 isosorbide mononitrate 30 mg Tablet Extended Release 24 Hr 30 mg PO DAILY Qty: 30 RF: 2 spironolactone 25 mg Tablet 25 mg PO QAM Qty: 30 RF: 2 metoprolol succinate 25 mg Tablet Extended Release 24 Hr 100 mg PO QAM Qty: 30 RF: 2 Entresto 24-26 mg Tablet 1 tab PO BID Qty: 30 RF: 2 Jardiance 10 mg tablet 10 mg PO DAILY Qty: 30 RF: 2 metformin 1,000 mg tablet extended release 24hr 1,000 mg PO BID Qty: 60 RF: 2 ferrous sulfate 324 mg (65 mg iron) tablet,delayed release (DR/EC) 324 mg PO Q OTHER DAY Qty: 30 RF: 2 Continued atorvastatin 80 mg tablet 80 mg PO DAILY RF: 0 clopidogrel 75 mg tablet 75 mg PO DAILY RF: 0 aspirin [Aspirin Low Dose] 81 mg Tablet,Delayed Release (Dr/Ec) 81 mg PO DAILY RF: 0 sildenafil 100 mg tablet 100 mg PO DAILY PRN (Reason: Erectile Dysfunction) RF: 0 alprazolam 0.5 mg tablet 0.5 mg PO DAILY PRN (Reason: Anxiety) RF: 0 omeprazole 20 mg Tablet,Delayed Release (Dr/Ec) 20 mg PO DAILY RF: 0 Discontinued enalapril maleate 10 mg Tablet 10 mg PO DAILY RF: 0 pioglitazone-metformin 15-850 mg tablet 1 tab PO DAILY RF: 0 glipizide 10 mg tablet 10 mg PO DAILY RF: 0 Discharge Orders: Discharge Order (Routine); Ordered 07/13/21 Ordered By: Ishmael Castaneda/Other Patient Handouts: Heart Failure Meds, What Is Heart Failure, Having Cardiac Catheterization, Heart Failure Flare Up Signs, Heart Failure: Tracking Your Weight, Coping with Heart Failure, Heart Failure Make Changes Diet, AFib Dc, Left Bundle Branch Block, Heart Failure Admission Data Admit Date/Time: 07/08/21 21:40 Attending Provider: Roni Coto Admit Provider: Darío Atkins Primary Care Provider: Red Fraire Other Providers: Feliz Austin ; Darío Atkins ; Jamil Jose Other Interventions: Discharge Summary Assessment (RN) Last Done: 07/13/21 13:48 Supervising Physician Co-Signing Physician Notes I also saw the patient and confirmed amos portions of the history and the physical examination. I also discussed the case with the cardiology consult. I agree with the impression and plan as noted in the resident discharge. Multiple changes to the patient's medications as noted in the resident documentation. These were carefully reviewed with the patient prior to discharge. For his diabetes, his glipizide and Actos were discontinued, his metformin was increased from 850 mg twice daily to 1000 mg twice daily and Jardiance 10 mg was added. His lisinopril was discontinued and the patient was started on Entresto 49/51mg twice daily. He was also started on Furosemide 40 mg p.o. every morning. He will follow up with the CHF clinic. He will have follow-up with his PCP, Dr. Fraire. Appointment will be made for outpatient evaluation at [facility], for cardiac revascularization.
[2021-07-14] MEDS ORDERED: FUROSEMIDE 40 MG TAB PO SCH (09:00)
== END 2021-07-13 15:24 | disposition home or self-care (01) | DRG 286 ==
LOC: ED 17:48 → 2S 21:40 → SUATTDRO 21:40 → 2S 22:52

== ENCOUNTER 2022-05-30 12:18 | Inpatient (IN) ==
--- NOTE | 2022-05-30 13:11 | Emergency Department Note ---
Impression & Plan Left leg pain, Ischemia of left lower extremity, Acute hyperglycemia ED Provider Note NAME: ELLEN PELAEZ AGE: 71 SEX: M : 1950 ARRIVES VIA: Walk-In INFORMANT: [Patient] ED PROVIDER(S): [Amarjit Francisco MD] CHIEF COMPLAINT: Left leg pain HISTORY OF PRESENT ILLNESS: The patient is a 71-year-old male who presents to the ED with complaints of pain from his left knee down to his foot. He states that this pain developed yesterday around 12 hours ago while he was sitting. The patient states that he took some Advil which helped but, he never completely became pain free. He feels his left foot and ankle are cold to the touch and he has had issues with arterial disease in the past. He has a stent somewhere behind his left knee from an arterial issue that occurred about 3 years ago. He states that today's presentation feels similar. There has been no shortness of breath, no cough or cold or fever. He currently has pain that is a 7/10, he does not want pain medication. He does take a baby aspirin and Plavix regularly. PMHx/PSHx: See Below SOCIAL HISTORY: See Below. PHYSICAL EXAM: GENERAL: Patient is in no acute distress. HEENT: No acute trauma, normocephalic atraumatic, mucous membranes moist, no nasal congestion. NECK: No stridor, no adenopathy, no meningismus, trachea is midline. LUNGS: Clear to auscultation bilaterally, no wheeze, no rhonchi, breath sounds equal. HEART: Without murmurs gallops or rubs, regular rate and rhythm. ABDOMEN: Soft, nontender, bowel sounds positive, no peritonitis. EXTREMITIES: No cyanosis or edema. The patient's left leg is cool from the distal portion of the leg throughout the ankle to the foot. There is some paleness noted to the left foot. NEUROLOGIC: Oriented x 3, no acute motor or sensory deficits, no focal weakness. SKIN: No rash, no jaundice, no diaphoresis. DIFFERENTIAL DIAGNOSIS: Arterial clot or stenosis, venous clot, cellulitis, sprain, strain, contusion, among others. EMERGENCY DEPARTMENT COURSE/PROCEDURES: Prior/Outside records reviewed: None. MEDICAL DECISION MAKING: There is no leukocytosis. A very mild anemia was seen. There was a normal platelet count. No coagulopathy. Renal panel shows a low sodium at 126. A higher potassium at 5.2. Creatinine was elevated at 1.48-the creatinine elevation is baseline looking back at previous testing. Glucose was quite high at over 600. No concerning liver enzyme elevation. COVID test returned negative. Left leg venous ultrasound did not show any acute clot. Left lower extremity arterial ultrasound did show significant issues with the arterial flow. There was minimal to no flow in the distal lower extremity. On exam, the patient's left lower extremity was initially pale and cool to the touch. On repeat evaluation after ultrasound, the patient's foot had improved, he had much less pain, there was subtle capillary refill present. The foot was now the same temperature as the opposite foot. Patient was given IV saline for hydration, he was given IV insulin for the higher blood sugar. He received IV morphine and IV Zofran for pain and nausea. He was given IV Tylenol for pain. I did speak with Dr. Ambriz of vascular surgery. As the patient was showing improvement and having less pain with what appears to be some arterial flow to the left lower extremity, the patient was felt safe for admission to our hospital for a procedure tomorrow. I discussed transfer with the patient and he was adamant that he prefers to stay at our facility. He was comfortable waiting until tomorrow for the procedure. He will likely require arterial stenting. I did speak with case management, the on-call hospitalist was consulted. DISPOSITION: Patient's presentation and findings warrant a hospital stay. Past Med/Surg History Medical History Acute HFrEF (heart failure with reduced ejection fraction) Anemia Arterial occlusion, lower extremity Atherosclerosis of artery of left lower extremity CAD (coronary artery disease) Cardiomyopathy Dyslipidemia HTN (hypertension) Tobacco abuse Type 2 diabetes mellitus Surgical History (Updated 01/15/22 @ 09:51 by Tim Jimenez MD) History of cataract extraction History of eye surgery retina History of left knee surgery S/P CABG x 2 Social History Smoking Status: Current every day smoker Tobacco Type: Cigarettes Cigarettes Per Day: 10; Second Hand Exposure: No; Hx Alcohol Use: No Hx Substance Use: Yes Preferred Language: Salvadorean Communication Ability: Effective Marine Extension Agent Required: No Beliefs That Will Affect Care: None Current Living Situation: Alone How many Children do You have: 1 Feels Safe at Home: Yes Assistive Devices: None Allergies Allergies Allergy/AdvReac Type Severity Reaction Status Date / Time cat dander Allergy Intermediate CONGESTION Verified 05/30/22 15:30 Home Meds Home Medications Medication Instructions Recorded Confirmed aspirin 81 mg tablet,delayed 81 mg PO DAILY 05/15/19 05/30/22 release (Freedom Low Dose Aspirin) atorvastatin 80 mg tablet 80 mg PO DAILY 05/15/19 05/30/22 clopidogrel 75 mg tablet 75 mg PO DAILY 05/15/19 05/30/22 omeprazole 20 mg tablet,delayed 20 mg PO DAILYBB 07/08/21 05/30/22 release sertraline 50 mg tablet 50 mg PO DAILY 08/28/21 05/30/22 metformin 1,000 mg tablet,extended 1,000 mg PO BID 11/19/21 05/30/22 release 24hr sacubitril 24 mg-valsartan 26 mg 1 tab PO BID 12/07/21 05/30/22 tablet empagliflozin 10 mg tablet 10 mg PO QAM 05/30/22 05/30/22 (Jardiance) empagliflozin 25 mg tablet 25 mg PO QAM 05/30/22 05/30/22 (Jardiance) metoprolol succinate 200 mg 100 mg PO DAILY 05/30/22 05/30/22 tablet,extended release 24 hr Previous Rx's Medication Instructions Recorded spironolactone 25 mg tablet 25 mg PO QAM #30 tabs 07/13/21 Results & Data (ED) Vital Signs Vital Signs - 24 hr 05/30/22 12:27 05/30/22 14:51 Temperature 36.4 C L Temperature Source Temporal Artery Scan Pulse Rate 84 Respiratory Rate 20 16 Respiratory Effort / Characteristics Non-Labored Spontaneous Respiratory Depth Normal Blood Pressure 158/101 H Blood Pressure [Right Arm] 123/67 Blood Pressure Mean 120 Blood Pressure Mean [Right Arm] 85 Pulse Oximetry 98 94 Oxygen Delivery Method Room Air Room Air Sepsis Recent Fever Within 48 Hours No Sepsis New/Unexplained Change in Mental Status N/A Sepsis Action Taken by Nursing No Action Required Home Medications Current Medication List: was personally reviewed by me Laboratory Data Attestation: I reviewed the patient's lab results. 05/30/22 13:00 05/30/22 13:00 Lab Results 05/30/22 05/30/22 05/30/22 Range/Units 13:00 13:00 13:00 WBC 5.85 (4.8-10.8) K/ul RBC 4.88 (4.70-6.10) M/uL Hgb 13.9 L (14.0-18.0) g/dl Hct 40.4 L (42.0-52.0) % MCV 82.8 (80.0-100.0) fL MCH 28.5 (25.0-34.0) pg MCHC 34.4 (32.0-36.0) g/dL RDW Std Deviation 39.3 (36.4-46.3) fL RDW Coeff of Josh 13.1 (11.5-14.5) % Plt Count 150 (130-400) K/uL MPV 11.8 (9.4-12.4) fL PT Cancelled INR Cancelled APTT Cancelled PTT Ratio Cancelled Sodium 126 L (136-145) mmol/L Potassium 5.2 H (3.5-5.1) mmol/L Chloride 95 L (98-107) mmol/L Carbon Dioxide 22 (21-32) mmol/L Anion Gap 9 (3-11) BUN 23 (6-23) mg/dl Creatinine 1.48 H (0.6-1.4) mg/dl Est Cr Clr Drug Dosing 55.9 ml/min Est GFR ( Amer) 54.8 ml/min Est GFR (Non-Af Amer) 47.3 ml/min BUN/Creatinine Ratio 15.5 (10-20) Glucose 635 H* (70-99(Fasting)) mg/dl Calcium 8.4 L (8.6-10.3) mg/dl Total Bilirubin 0.6 (0.2-1.0) mg/dl AST 27 (13-39) U/L ALT 35 (7-52) U/L Alkaline Phosphatase 101 (34-104) U/L Total Protein 6.9 (6.0-8.3) gm/dl Albumin 3.6 (3.4-5.0) gm/dl Globulin 3.3 (2.5-4.0) gm/dl Albumin/Globulin Ratio 1.1 (0.9-2) SARS-CoV-2, RNA, NAAT (NEGATIVE) 05/30/22 05/30/22 Range/Units 13:45 15:27 WBC (4.8-10.8) K/ul RBC (4.70-6.10) M/uL Hgb (14.0-18.0) g/dl Hct (42.0-52.0) % MCV (80.0-100.0) fL MCH (25.0-34.0) pg MCHC (32.0-36.0) g/dL RDW Std Deviation (36.4-46.3) fL RDW Coeff of Josh (11.5-14.5) % Plt Count (130-400) K/uL MPV (9.4-12.4) fL PT 11.0 INR 1.0 APTT 23.4 PTT Ratio 0.9 Sodium (136-145) mmol/L Potassium (3.5-5.1) mmol/L Chloride (98-107) mmol/L Carbon Dioxide (21-32) mmol/L Anion Gap (3-11) BUN (6-23) mg/dl Creatinine (0.6-1.4) mg/dl Est Cr Clr Drug Dosing ml/min Est GFR ( Amer) ml/min Est GFR (Non-Af Amer) ml/min BUN/Creatinine Ratio (10-20) Glucose (70-99(Fasting)) mg/dl Calcium (8.6-10.3) mg/dl Total Bilirubin (0.2-1.0) mg/dl AST (13-39) U/L ALT (7-52) U/L Alkaline Phosphatase (34-104) U/L Total Protein (6.0-8.3) gm/dl Albumin (3.4-5.0) gm/dl Globulin (2.5-4.0) gm/dl Albumin/Globulin Ratio (0.9-2) SARS-CoV-2, RNA, NAAT NEGATIVE (NEGATIVE) Administered Medications Heparin Sodium/Dextrose (Heparin Sodium/Dextrose) 25,000 units in 500 mls @ 20 mls/hr IV .Q24H [facility]; Protocol Stop: 06/29/22 15:29 Last Admin: 05/30/22 15:45 Dose: 1,000 units/hr, 20 mls/hr Documented By: LAVELL Co-signed By: KRISTINA Discontinued Medications Heparin Sodium (Porcine) (Heparin Sod (Porcine) 1000 Unit/Ml) 1 units IV NOW ONE Stop: 05/30/22 15:27 Last Admin: 05/30/22 15:44 Dose: 4,000 units Documented By: LAVELL Co-signed By: KRISTINA Heparin Sodium/Dextrose (Heparin Iv Adult Wt-Based Low-Dose With Bolus Protocol) 1 each IV NOW STA; Protocol Stop: 05/30/22 15:11 Last Admin: 05/30/22 15:48 Dose: Not Given Documented By: LAVELL Acetaminophen (Ofirmev) 1,000 mg in 100 mls @ 400 mls/hr IV NOW STA Stop: 05/30/22 13:26 Last Infusion: 05/30/22 13:42 Dose: 0 mls/hr Documented By: Admin: 05/30/22 13:19 Dose: 400 mls/hr Documented By: Sodium Chloride (Nss 1000ml) 1,000 mls @ 999 mls/hr IV .Q1H1M ONE Stop: 05/30/22 14:42 Last Infusion: 05/30/22 15:48 Dose: 0 mls/hr Documented By: Admin: 05/30/22 14:48 Dose: 999 mls/hr Documented By: KRISTINA Insulin Human Regular (Novolin-R Insulin Per Unit Charge) 10 units IV NOW STA Stop: 05/30/22 13:43 Last Admin: 05/30/22 14:46 Dose: 10 units Documented By: KRISTINA Co-signed By: CHANELLE Morphine Sulfate (Morphine Sulfate 4 Mg/Ml 1 Ml Carp\Vial) 4 mg IV NOW STA Stop: 05/30/22 13:13 Last Admin: 05/30/22 13:19 Dose: 4 mg Documented By: Ondansetron HCl (Ondansetron Inj 2 Mg/Ml 2 Ml Vial) 4 mg IV NOW STA Stop: 05/30/22 13:13 Last Admin: 05/30/22 13:18 Dose: 4 mg Documented By: Imaging Data Radiologist's Impression: Duplex Scan Lower Extremity Artery 05/30/22 12:57 US arterial duplex LE LT CLINICAL HISTORY: cold foot TECHNIQUE: Real-time grayscale and color and spectral Doppler ultrasound imaging of the left lower extremity arteries was performed. Measurements calculated based on NASCET criteria. COMPARISON: None available at the time of this dictation. FINDINGS: Significant plaque is noted in the left leg. Monophasic waveforms of parvus tardus waveforms are seen in the mid superficial femoral artery and below although focally elevated velocities seen in the mid superficial femoral artery, 136 cm/s. The distal superficial femoral artery demonstrates a maximal velocity of 26 cm/s. Popliteal artery velocity measures up to 23 cm/s. There is questionable flow in the posterior tibial artery, maximal velocity 9 cm/s, and no significant flow is seen in the peroneal, anterior tibial, and dorsalis pedis arteries. IMPRESSION: Severe hemodynamically significant stenosis is again seen with likely progression of parvus tardus waveforms in the distal superficial artery and no significant flow below the popliteal artery. ACT 112: Negative or not required by law. Electronically signed by: Ellen Fair M.D. 05/30/2022 2:38 PM Venous Doppler Study 05/30/22 12:57 US venous doppler LE LT CLINICAL HISTORY: pain, poss clot TECHNIQUE: Left lower extremity real-time compression venous ultrasound with Color Doppler imaging. Utilizing real-time ultrasonic imaging multiple real time high-resolution ultrasonic images with compression and noncompression maneuvers of the deep venous system in addition to color doppler imaging were performed from the common femoral vein through the proximal calf veins. COMPARISON: None available at the time of this dictation. FINDINGS/IMPRESSION: Currently there is normal compressibility of the deep venous system from the common femoral vein through the proximal calf veins. No superficial venous thrombosis is identified. ACT 112: Negative or not required by law. Electronically signed by: Ellen Fair M.D. 05/30/2022 2:27 PM Discharge Plan Visit Data Chief Complaint: Leg Injury/Pain Stated Complaint: LEFT LEG PAIN/CRAMPS ED Provider: Amarjit Francisco Discharge Problem: Left leg pain, Ischemia of left lower extremity, Acute hyperglycemia Patient Disposition: Admitted As Inpatient Condition: Fair Forms Stand Alone Forms: [facility] Pres[facility] Prescriptions: No Action sertraline 50 mg tablet 50 mg PO DAILY sacubitril-valsartan 24-26 mg tablet 1 tab PO BID metformin 1,000 mg tablet extended release 24hr 1,000 mg PO BID atorvastatin 80 mg tablet 80 mg PO DAILY clopidogrel 75 mg tablet 75 mg PO DAILY aspirin [Freedom Low Dose Aspirin] 81 mg Tablet,Delayed Release (Dr/Ec) 81 mg PO DAILY omeprazole 20 mg Tablet,Delayed Release (Dr/Ec) 20 mg PO DAILYBB spironolactone 25 mg Tablet 25 mg PO QAM Qty: 30 2RF metoprolol succinate 200 mg tablet extended release 24 hr 100 mg PO DAILY Jardiance 25 mg Tablet 25 mg PO QAM Jardiance 10 mg Tablet 10 mg PO QAM Referrals Referrals: Red Fraire MD [Primary Care Provider] -
[2022-05-30] MEDS ORDERED: ACETAMINOPHEN 1,000 MG/100 ML VIAL IV STA (13:12)
[2022-05-30] MEDS ORDERED: ONDANSETRON INJ 2 MG/ML 2 ML VIAL IV STA (13:12)
[2022-05-30] MEDS ORDERED: MoRPHine SULFATE 4 MG/ML 1 ML CARP\\VIAL IV STA (13:12)
[2022-05-30 13:22] LABS: Hematocrit (blood only) 40.4 % (42.0-52.0); Hemoglobin 13.9 g/dl (14.0-18.0); Mean Corpuscular Hemoglobin 28.5 pg (25.0-34.0); Mean Corpuscular Hgb Conc 34.4 g/dL (32.0-36.0); Mean Corpuscular Volume 82.8 fL (80.0-100.0); Mean Platelet Volume 11.8 fL (9.4-12.4); Platelet Count 150 K/uL (130-400); RDW Coefficient of Variation 13.1 % (11.5-14.5); RDW Standard Deviation 39.3 fL (36.4-46.3); Red Blood Count 4.88 M/uL (4.70-6.10); White Blood Count 5.85 K/ul (4.8-10.8)
[2022-05-30] MEDS ORDERED: NovoLIN-R INSULIN PER UNIT CHARGE IV STA (13:42)
[2022-05-30] MEDS ORDERED: SODIUM CHLORIDE 0.9% 1000ML 1,000 ML IV ONE (13:42)
[2022-05-30 13:45] LABS: Albumin Globulin Ratio 1.1 (0.9-2); Albumin Level 3.6 gm/dl (3.4-5.0); BUN Creatinine Ratio 15.5 (10-20); Bilirubin,Total 0.6 mg/dl (0.2-1.0); Calcium 8.4 mg/dl (8.6-10.3); Creatinine Clr Calc Pharmacy 55.9 ml/min; Est GFR (African American) 54.8 ml/min; Est GFR (Non-African American) 47.3 ml/min; Globulin 3.3 gm/dl (2.5-4.0); Potassium 5.2 mmol/L (3.5-5.1); Total Protein 6.9 gm/dl (6.0-8.3)
--- NOTE | 2022-05-30 14:28 | Ultrasound Report ---
US venous doppler LE LT CLINICAL HISTORY: pain, poss clot TECHNIQUE: Left lower extremity real-time compression venous ultrasound with Color Doppler imaging. U tilizing real-time ultrasonic imaging multiple real time high-resolution ultrasonic images with compr ession and noncompression maneuvers of the deep venous system in addition to color doppler imaging we re performed from the common femoral vein through the proximal calf veins. COMPARISON: None available at the time of this dictation. FINDINGS/IMPRESSION: Currently there is normal compressibility of the deep venous system from the common femoral vein thro ugh the proximal calf veins. No superficial venous thrombosis is identified. ACT 112: Negative or not required by law. Electronically signed by: Cody Fair M.D. 05/30/2022 2:27 PM
[2022-05-30 14:35] LABS: Partial Thromboplastin Ratio 0.9; Partial Thromboplastin Time 23.4 Seconds (21.0-31.0)
--- NOTE | 2022-05-30 14:40 | Ultrasound Report ---
US arterial duplex LE LT CLINICAL HISTORY: cold foot TECHNIQUE: Real-time grayscale and color and spectral Doppler ultrasound imaging of the left lower ex tremity arteries was performed. Measurements calculated based on NASCET criteria. COMPARISON: None available at the time of this dictation. FINDINGS: Significant plaque is noted in the left leg. Monophasic waveforms of parvus tardus waveforms are seen in the mid superficial femoral artery and below although focally elevated velocities seen in the mid superficial femoral artery, 136 cm/s. The distal superficial femoral artery demonstrates a maximal v elocity of 26 cm/s. Popliteal artery velocity measures up to 23 cm/s. There is questionable flow in t he posterior tibial artery, maximal velocity 9 cm/s, and no significant flow is seen in the peroneal, anterior tibial, and dorsalis pedis arteries. IMPRESSION: Severe hemodynamically significant stenosis is again seen with likely progression of parvus tardus wa veforms in the distal superficial artery and no significant flow below the popliteal artery. ACT 112: Negative or not required by law. Electronically signed by: Cody Fair M.D. 05/30/2022 2:38 PM
[2022-05-30] MEDS ORDERED: Heparin IV Adult Wt-Based Low-Dose WITH Bolus Protocol IV STA (15:10)
[2022-05-30] MEDS ORDERED: HEPARIN SOD (PORCINE) 1000 UNIT/ML IV ONE ×2 (15:26→23:45)
--- NOTE | 2022-05-30 15:28 | History & Physical Report ---
Date of Service May 30, 2022 Assessment & Plan (1) Arterial occlusion, lower extremity: Plan: Ultrasound noted severe hemodynamically significant stenosis at the distal superficial artery and no significant flow below the popliteal artery, and no evidence of DVT on venous Dopplers. Case discussed with Dr Ambriz patient was made aware he is at high risk for reocclusion, and delay to intervention could result in loss of tissue or even amputation. - Dr Ambriz to assess patient in the AM - Clear diet tonight (carb consistent) - NPO after midnight - Continue vascular assessments overnight - Doppler probe left at bedside to intermittently check or check if change in color or change in patient's symptoms - Start Heparin gtt - Labs in AM (2) Type 2 diabetes mellitus: Plan: - ISS - Clear carb consistent liquid diet - HgbA1C (3) Heart failure with mid-range ejection fraction: Plan: chronic Last echo10/06/21 EF 40-45% (4) HTN (hypertension): Plan: chronic and stable BP 123/67 History of Present Illness Chief Complaint: painful left lower leg Primary Care Provider: Red Fraire MD Cody Alvarez is a 71 year old with a past medical history of PAD(previous stent left leg), Type II DM, NSTEMI, hyperlipidemia, CAD (S/P CABG x2), chronic HFrEF (40-45%) and thrombosed left superficial femoral artery with history of thrombolysis who presented to the ER with acute pale/cool left foot and pain in left leg from knee to foot x 1 day. Patient's symptoms began about 12 hours prior to hospital assessment and did not resolve with aspirin and advil. He is on DAPT. Ultrasound noted severe hemodynamically significant stenosis at the distal superficial artery and no significant flow below the popliteal artery, and no evidence of DVT on venous Dopplers. Patient's foot suddenly became less painful, warmer, and with increased perfusion/redness by the time he arrived back in the ER. At hospitalist bedside assessment PT/DP pulses are not palpable; however a doppler was used and a pulse was heard that was monophasic flow at the left dorsalis pedis was appreciated and site of Doppler was marked with surgical pen. Cap refill sluggish in the hallux, foot was cool but not cold and was not blue/pale. Did discuss risk/benefits of transfer versus heparinization and awaiting vascular assessment with Dr. Ambriz. And discussed surgery here at [facility] would not be available until at least tomorrow. Patient initially refused transfer while in the ER, upon further discussions and discussed the risks of loosing his foot, he then reports if he were to lose his pulse, and the food would become acutely ischemic he would be willing to be transferred but does not wish to do this unless absolutely necessary. As he currently has monophasic flow to the foot and perfusion is improved compared to initial evaluation in the ER, it is reasonable to continue heparinization with vascular consult at this time. Patient is aware that he is at high risk for reocclusion, and delay to intervention could result in loss of tissue or even amputation. We will continue vascular assessments overnight, Doppler probe left at bedside. Heparin started, agree with assessment and management as above. Patient is very noncompliant with his diet and states he drinks mainly fruit pun ch, lemon aide and orange juice with occasional regular sodas. He states he is very afraid of having hypoglycemia. Discussed with patient the risks of continued hyperglycemia and uncontrolled diabetes. Patient denies any chest pain, abdominal pain, SOB, Dyspnea. Bedside doppler with monophasic pulse at PT left. CBC normal, PT 11, INR 1, BS elevted at 635 Last HgbA1C in chart was 06/2021 9.0 Allergies Allergy/AdvReac Type Severity Reaction Status Date / Time cat dander Allergy Intermediate CONGESTION Verified 05/30/22 15:30 Home Medications Medication Instructions Recorded Confirmed Type aspirin 81 mg tablet,delayed 81 mg PO DAILY 05/15/19 05/30/22 History release (Freedom Low Dose Aspirin) atorvastatin 80 mg tablet 80 mg PO DAILY 05/15/19 05/30/22 History clopidogrel 75 mg tablet 75 mg PO DAILY 05/15/19 05/30/22 History omeprazole 20 mg tablet,delayed 20 mg PO DAILYBB 07/08/21 05/30/22 History release spironolactone 25 mg tablet 25 mg PO QAM #30 tabs 07/13/21 05/30/22 Rx sertraline 50 mg tablet 50 mg PO DAILY 08/28/21 05/30/22 History metformin 1,000 mg tablet,extended 1,000 mg PO BID 11/19/21 05/30/22 History release 24hr sacubitril 24 mg-valsartan 26 mg 1 tab PO BID 12/07/21 05/30/22 History tablet empagliflozin 10 mg tablet 10 mg PO QAM 05/30/22 05/30/22 History (Jardiance) empagliflozin 25 mg tablet 25 mg PO QAM 05/30/22 05/30/22 History (Jardiance) metoprolol succinate 200 mg 100 mg PO DAILY 05/30/22 05/30/22 History tablet,extended release 24 hr Past Med/Surg History Medical History Acute HFrEF (heart failure with reduced ejection fraction) Anemia Arterial occlusion, lower extremity Atherosclerosis of artery of left lower extremity CAD (coronary artery disease) Cardiomyopathy Dyslipidemia HTN (hypertension) Tobacco abuse Type 2 diabetes mellitus Surgical History History of cataract extraction History of eye surgery retina History of left knee surgery S/P CABG x 2 Social History Smoking Status: Current every day smoker Tobacco Type: Cigarettes Cigarettes Per Day: 10; Second Hand Exposure: No; Hx Alcohol Use: No Hx Substance Use: Yes Preferred Language: Ugandan Communication Ability: Effective Window/Distribution Clerk Required: No Beliefs That Will Affect Care: None Current Living Situation: Alone How many Children do You have: 1 Feels Safe at Home: Yes Assistive Devices: None Review of Systems Review of Systems: Patient denies any chest pain, SOB, Dyspnea, abdominal pain, injury, trauma. All other ROS negative unless stated positive in the HPI Physical Exam Constitutional: WD/WN, vitals as above Respiratory: normal respiratory effort, lungs clear to auscultation Cardiovascular: RRR, no murmur, no edema Results & Data Results & Data Vital Signs (Past 12 Hours) Vital Signs Temp Pulse Resp BP BP Pulse Ox O2 Del Method 05/30/22 14:51 16 123/67 94 Room Air 05/30/22 12:27 36.4 C L 84 20 158/101 H 98 Room Air Laboratory Results Abnormal lab results 05/30/22 05/30/22 Range/Units 13:00 13:00 Hgb 13.9 L (14.0-18.0) g/dl Hct 40.4 L (42.0-52.0) % Sodium 126 L (136-145) mmol/L Potassium 5.2 H (3.5-5.1) mmol/L Chloride 95 L (98-107) mmol/L Creatinine 1.48 H (0.6-1.4) mg/dl Glucose 635 H* (70-99(Fasting)) mg/dl Calcium 8.4 L (8.6-10.3) mg/dl Diagnostic Findings Duplex Scan Lower Extremity Artery 05/30/22 12:57 US arterial duplex LE LT CLINICAL HISTORY: cold foot TECHNIQUE: Real-time grayscale and color and spectral Doppler ultrasound imaging of the left lower extremity arteries was performed. Measurements calculated based on NASCET criteria. COMPARISON: None available at the time of this dictation. FINDINGS: Significant plaque is noted in the left leg. Monophasic waveforms of parvus tardus waveforms are seen in the mid superficial femoral artery and below although focally elevated velocities seen in the mid superficial femoral artery, 136 cm/s. The distal superficial femoral artery demonstrates a maximal velocity of 26 cm/s. Popliteal artery velocity measures up to 23 cm/s. There is questionable flow in the posterior tibial artery, maximal velocity 9 cm/s, and no significant flow is seen in the peroneal, anterior tibial, and dorsalis pedis arteries. IMPRESSION: Severe hemodynamically significant stenosis is again seen with likely progression of parvus tardus waveforms in the distal superficial artery and no significant flow below the popliteal artery. ACT 112: Negative or not required by law. Electronically signed by: Cody Fair M.D. 05/30/2022 2:38 PM Venous Doppler Study 05/30/22 12:57 US venous doppler LE LT CLINICAL HISTORY: pain, poss clot TECHNIQUE: Left lower extremity real-time compression venous ultrasound with Color Doppler imaging. Utilizing real-time ultrasonic imaging multiple real time high-resolution ultrasonic images with compression and noncompression maneuvers of the deep venous system in addition to color doppler imaging were performed from the common femoral vein through the proximal calf veins. COMPARISON: None available at the time of this dictation. FINDINGS/IMPRESSION: Currently there is normal compressibility of the deep venous system from the common femoral vein through the proximal calf veins. No superficial venous thrombosis is identified. ACT 112: Negative or not required by law. Electronically signed by: Cody Fair M.D. 05/30/2022 2:27 PM Supervising Physician Co-Signing Physician Notes Patient seen and examined, chart reviewed, case discussed with Tamiko Hernández PA-C and I agree with the assessment and plan as above except as otherwise noted Labs and images reviewed Cody is a 71yo with a PMHx of PAD, T2DM, NSTEMI, hyperlipidemia, and thrombosed left superficial femoral artery with history of thrombolysis who presents with an acute knee painful, pale/cool left foot. Patient's symptoms began about 12 hours prior to hospital assessment and did not resolve with aspirin. He is on DAPT. He was taken to ultrasound which noted severe hemodynamically significant stenosis at the distal superficial artery and no significant flow below the popliteal artery, and no evidence of DVT on venous Dopplers; however patient's foot suddenly became less painful, warmer, and with increased perfusion/redness by the time he arrived back in the ER. At hospitalist bedside assessment PT/DP pulses are not palpable; however a dopplerable pulse with monophasic flow at the left dorsalis pedis was appreciated and site of Doppler was marked with surgical pen. Cap refill sluggish in the hallux, foot was cool but not cold and was not blue/pale. Did discuss risk/benefits of transfer versus heparinization and awaiting vascular assessment with Dr. Ambriz going surgery would not be available until at least tomorrow. Patient initially refused transfer while in the ER; on recess benefits discussion he reports if he were to lose his pulse where the food would become is acutely ischemic he would be willing to be transferred but does not wish to do this unless absolutely necessary. As he currently has monophasic flow to the foot and perfusion is improved compared in the ER, is reasonable to continue heparinization with vascular consult at this time. Patient is aware that he is at high risk for reocclusion, and delay to intervention could result in loss of tissue or even amputation. We will continue vascular assessments overnight, Doppler probe left at bedside. Heparin started, agree with assessment and management as above. PG Care Time/CCT Total # of Minutes Spent Total Time Spent with Patient: Total time spent is greater than 50% in coordination of care (as documented) at patient's floor/unit and/or counseling patient: Coding Level of Care Code 63577 INT INP/OBS CARE 2/55MIN Diagnoses Arterial occlusion, lower extremity I70.209 Type 2 diabetes mellitus E11.9 Heart failure with mid-range ejection fraction I50.22 HTN (hypertension) I10
[2022-05-30] MEDS: HEPARIN SODIUM/DEXTROSE 25,000 UNITS/500 ML BAG IV SCH (15:45)
[2022-05-30 16:26] LABS: Base Excess ABG -1.3 mEq/L (-9-1.8); HCO3 ABG 24 mmol/L (19-24); Oxygen Saturation ABG 98.5 % (90-95); PCO2 ABG 40 mmHg (35-46); PO2 ABG 93 mmHg (80-95); pH ABG 7.38 (7.35-7.45)
[2022-05-30 16:27] LABS: Allen Test Pos (Pos)
[2022-05-30] MEDS ORDERED: CARBOHYDRATES FOR HYPOGLYCEMIA PO PRN (19:01)
[2022-05-30] MEDS ORDERED: GLUCOSE 10 TAB/TUBE PO PRN (19:01)
[2022-05-30] MEDS ORDERED: GLUCAGON FOR INJ 1 MG VIAL SQ PRN (19:01)
[2022-05-30] MEDS ORDERED: GLUCOSE 40% GEL 15 GM TUBE PO PRN (19:01)
[2022-05-30] MEDS ORDERED: POLYETHYLENE (MIRALAX) 17 GM PACK PO PRN (19:01)
[2022-05-30] MEDS ORDERED: NITROGLYCERIN SL 0.4 MG/TAB TAB SL PRN (19:01)
[2022-05-30] MEDS ORDERED: ACETAMINOPHEN 325 MG TAB PO PRN (19:01)
[2022-05-30] MEDS ORDERED: ONDANSETRON INJ 2 MG/ML 2 ML VIAL IV PRN (19:01)
[2022-05-30] MEDS ORDERED: DEXTROSE 50% 50 ML SYRINGE IV PRN (19:01)
[2022-05-30] MEDS ORDERED: PHARMACY GLYCEMIC MGMT CONSULT PRN (19:01)
[2022-05-30] MEDS ORDERED: INSULIN HUMAN REGULAR PER UNIT 10 UNITS in SYRINGE 9.9 ML IV ONE (19:45)
[2022-05-30] MEDS: VALSARTAN/SACUBITRIL 26/24MG TAB PO SCH (20:33)
[2022-05-30] MEDS: INSULIN ASPART PER UNIT CHARGE SC SCH ×2 (20:34→23:04)
[2022-05-30] MEDS ORDERED: LANTUS PER UNIT CHARGE SQ SCH (21:00)
[2022-05-30] MEDS ORDERED: LANTUS PER UNIT CHARGE SQ ONE (21:15)
[2022-05-30 23:21] LABS: Partial Thromboplastin Ratio 1.3
[2022-05-31] MEDS ORDERED: INSULIN ASPART PER UNIT CHARGE SC ONE (03:00)
[2022-05-31] MEDS ORDERED: LANTUS PER UNIT CHARGE SQ ONE ×3 (04:00→09:00)
[2022-05-31 06:26] LABS: Hemoglobin 13.5 g/dl (14.0-18.0); Mean Corpuscular Hemoglobin 28.5 pg (25.0-34.0); Mean Corpuscular Hgb Conc 33.8 g/dL (32.0-36.0); Mean Corpuscular Volume 84.4 fL (80.0-100.0); Mean Platelet Volume 11.4 fL (9.4-12.4); Platelet Count 142 K/uL (130-400); RDW Coefficient of Variation 13.2 % (11.5-14.5); RDW Standard Deviation 40.5 fL (36.4-46.3); Red Blood Count 4.74 M/uL (4.70-6.10)
[2022-05-31 06:59] LABS: BUN Creatinine Ratio 15.2 (10-20); Calcium 8.3 mg/dl (8.6-10.3); Creatinine Clr Calc Pharmacy 62.5 ml/min; Est GFR (African American) 62.9 ml/min; Est GFR (Non-African American) 54.3 ml/min
[2022-05-31 07:35] LABS: INR 1.1 (0.9-1.1); Partial Thromboplastin Ratio 1.9; Partial Thromboplastin Time 51.8 Seconds (21.0-31.0); Prothrombin Time 11.3 Seconds (9.0-12.0)
[2022-05-31] MEDS: ATORVASTATIN 40 MG TAB PO SCH (07:37)
[2022-05-31] MEDS: VALSARTAN/SACUBITRIL 26/24MG TAB PO SCH ×2 (07:37→20:33)
[2022-05-31] MEDS: METOPROLOL SUCC 50MG EXT REL TAB PO SCH (07:37)
[2022-05-31] MEDS: SERTRALINE HCL 50 MG TABLET PO SCH (07:37)
[2022-05-31] MEDS: PANTOprazole 40 MG TAB PO SCH (07:37)
[2022-05-31] MEDS: INSULIN ASPART PER UNIT CHARGE SC SCH ×5 (07:44→20:33)
--- NOTE | 2022-05-31 09:42 | Consultation ---
Date of Consultation May 31, 2022 Assessment & Plan (1) Arterial occlusion, lower extremity: Patient scheduled for a left lower extremity arteriogram in the am tomorrow with possible intervention. I have discussed the risks options and benefits of the procedure with the patient. The patient understands the risks options and benefits and agrees to the procedure. Thank you very much for letting us participate in the care of this patient. History of Present Illness Reason for Consultation: Ischemic left lower extremity Attending Physician: Gregorio Walters MD History of Present Illness This is a 71yo male who had a stent placed in his left sfa three years ago. It occluded a month later at which time he had TPA infusion with resolution of the clot. He has been on ASA and plavix since. He has had no difficulty in walking or cramping in his left leg since. Tuesday he developed acute onset of pain in his left lower leg. It eased up until Tuesday when again it got worse requiring him to go to the ED. Once in the ED he was noted to have a cold left lower leg with markedly decreased blood flow. He was having severe pain. His usn showed no flow below the popliteal. At that point I was not on ER call and informed them he would needed to be sent out. The ED called back later saying his foot felt warmer and his pain improved. He did not want to be transferred to another facility and therefore admitted to the hospitalist. We were consulted during the night for a STAT consult but never called by the physician requesting the consult. Today he is not having pain in the foot. He denies numbness in the left foot. He denies any tissue loss. He continues to smoke. He is a diabetic and does have CAD. Allergies Allergy/AdvReac Type Severity Reaction Status Date / Time cat dander Allergy Intermediate CONGESTION Verified 05/30/22 15:30 Home Medications Medication Instructions Recorded Confirmed Type aspirin 81 mg tablet,delayed 81 mg PO DAILY 05/15/19 05/30/22 History release (Freedom Low Dose Aspirin) atorvastatin 80 mg tablet 80 mg PO DAILY 05/15/19 05/30/22 History clopidogrel 75 mg tablet 75 mg PO DAILY 05/15/19 05/30/22 History omeprazole 20 mg tablet,delayed 20 mg PO DAILYBB 07/08/21 05/30/22 History release spironolactone 25 mg tablet 25 mg PO QAM #30 tabs 07/13/21 05/30/22 Rx sertraline 50 mg tablet 50 mg PO DAILY 08/28/21 05/30/22 History metformin 1,000 mg tablet,extended 1,000 mg PO BID 11/19/21 05/30/22 History release 24hr sacubitril 24 mg-valsartan 26 mg 1 tab PO BID 12/07/21 05/30/22 History tablet empagliflozin 10 mg tablet 10 mg PO QAM 05/30/22 05/30/22 History (Jardiance) empagliflozin 25 mg tablet 25 mg PO QAM 05/30/22 05/30/22 History (Jardiance) metoprolol succinate 200 mg 100 mg PO DAILY 05/30/22 05/30/22 History tablet,extended release 24 hr Patient History Medical History Acute HFrEF (heart failure with reduced ejection fraction) Anemia Arterial occlusion, lower extremity Atherosclerosis of artery of left lower extremity CAD (coronary artery disease) Cardiomyopathy Dyslipidemia HTN (hypertension) Tobacco abuse Type 2 diabetes mellitus Surgical History History of cataract extraction History of eye surgery retina History of left knee surgery S/P CABG x 2 Social History Smoking Status: Current every day smoker Tobacco Type: Cigarettes Cigarettes Per Day: 10; Second Hand Exposure: No; Hx Alcohol Use: No Hx Substance Use: Yes Preferred Language: Romanian Communication Ability: Effective Carbon Electrodes Supervisor Required: No Beliefs That Will Affect Care: None Current Living Situation: Alone How many Children do You have: 1 Feels Safe at Home: Yes Assistive Devices: None Review of Systems Review of Systems: All systems reviewed & are unremarkable except as noted in HPI & below Physical Exam Constitutional: WD/WN, vitals as above Respiratory: normal respiratory effort; no respiratory distress Auscultation: lungs clear to auscultation bilaterally Cardiovascular: RRR, no murmur, no edema Vessels: femoral pulses present and posterior tibial pulses present (weak doppler on left); + dorsalis pedis pulses abnormal Extremities: + abnormal capillary refill (decreased on left) Gastrointestinal (Abdomen): Inspection/Auscultation: abdomen normal to inspection; abdomen not distended Percussion/Palpation: abdomen soft; abdomen nontender Musculoskeletal: no cyanosis or clubbing, extremities motor strength 5/5 Neurologic: CN's II-XI intact bilaterally and moves all extremities Psychiatric: Orientation: alert and oriented x 3 Results & Data Vital Signs (Past 12 Hours) Vital Signs Temp Pulse Pulse Resp BP Pulse Ox O2 Del Method 05/31/22 08:15 36.3 C L 61 19 134/78 97 Room Air 05/31/22 03:35 36.6 C 68 17 133/82 96 Room Air 05/30/22 23:43 66 05/30/22 23:36 36.4 C L 71 18 121/74 95 Room Air
[2022-05-31 11:23] LABS: Estimated Average Glucose > 438 mg/dl; Hemoglobin A1C > 16.9 % (4.5-5.6)
[2022-05-31] MEDS: HEPARIN SODIUM/DEXTROSE 25,000 UNITS/500 ML BAG IV SCH (11:46)
--- NOTE | 2022-05-31 12:14 | Hospitalist Progress Note ---
Date of Service May 31, 2022 Assessment & Plan (1) Arterial occlusion, lower extremity: Plan: Ultrasound study showed severe hemodynamically significant stenosis at the distal superficial artery and no significant flow below the popliteal artery, and no evidence of DVT on venous Dopplers. Vascular surgery consultation appreciated. Left lower extremity arteriogram today, May 31. This will determine whether intervention is necessary. Continue heparin drip for now (2) Type 2 diabetes mellitus: Plan: ADA diet. Sliding scale coverage. Continue current medical management - HgbA1C (3) Heart failure with mid-range ejection fraction: Plan: Known ejection fraction 40-45%. Currently stable. Monitor intake and output. Continue current medical management (4) HTN (hypertension): Plan: chronic and stable . Continue current medical management Plan Anticipate eventual discharge back to home after perfusion of left lower extremity has improved. Admission and Anticipated Discharge Date Admission Date: May 30, 2022 Subjective Alert and oriented. No distress. The left foot is colder than the right but there is no overt cyanosis. Left lower extremity arteriogram per Dr. Ambriz is pending. Review of Systems Review of Systems: Constitutional-no fever or chills ENT-no blurred vision, no double vision, no epistaxis, no sore throat Respiratory-no cough, no wheezing, no shortness of breath Cardiac-no palpitations, no chest pain, no syncope GI-no nausea, vomiting, diarrhea, melena, hematochezia -no urinary retention, no urinary incontinence, no dysuria, no hematuria Musculoskeletal-no joint pain, no muscle tenderness Vascularleft lower extremity discomfort has diminished since admission. Skin-no bruising, no rashes, no pruritus Neuro-no isolated weakness, no paresthesia, no weakness Psych-no depression, no anxiety Physical Exam Physical Exam: General-alert and oriented x3, no fevers, no chills HEENT-head atraumatic and normocephalic, pupils equal and reactive to light, extraocular muscles intact Neck-no lymphadenopathy or thyromegaly, trachea midline Chest-clear to auscultation percussion. No rales wheezing or rhonchi Cardiac-regular rate and rhythm, normal S1 and S2 Abdomen-normal bowel sounds, nontender, no hepatosplenomegaly Extremities-no edema Vascularleft foot is cooler than the right. Pulses are not palpable. No overt cyanosis Neuro-cranial nerves II through XII intact, motor and sensory function within normal limits, strength symmetrical , no focal deficits Psych-normal affect, normal mood Results & Data Results & Data Vital Signs (Past 12 Hours) Vital Signs Temp Pulse Pulse Resp BP Pulse Ox O2 Del Method 05/31/22 12:07 36.6 C 61 17 118/71 94 Room Air 05/31/22 08:00 64 05/31/22 08:15 36.3 C L 61 19 134/78 97 Room Air 05/31/22 03:35 36.6 C 68 17 133/82 96 Room Air Laboratory Results 05/31/22 06:07 05/31/22 06:07 PG Care Time/CCT Total # of Minutes Spent Total Time Spent with Patient: Total time spent is greater than 50% in coordination of care (as documented) at patient's floor/unit and/or counseling patient: Coding Level of Care Code 15335 SUB INP/OBS CARE 3/50MIN Diagnoses Arterial occlusion, lower extremity I70.209 Type 2 diabetes mellitus E11.9 Heart failure with mid-range ejection fraction I50.22 HTN (hypertension) I10
[2022-05-31] MEDS: LANTUS PER UNIT CHARGE SQ SCH (20:33)
[2022-06-01] MEDS ORDERED: ceFAZolin 2000MG 2,000 MG/15 ML SYR IV ONE (06:00)
[2022-06-01 07:14] LABS: Basophils # (auto) 0.02 K/uL (0-0.2); Basophils % (auto) 0.4 %; Eosinophils # (auto) 0.13 K/uL (0-0.50); Eosinophils % (auto) 2.4 %; Hematocrit (blood only) 40.6 % (42.0-52.0); Hemoglobin 13.6 g/dl (14.0-18.0); Immature Granulocytes # (auto) 0.05 K/uL (0.01-0.20); Immature Granulocytes % (auto) 0.9 %; Lymphocytes % (auto) 32.6 %; Mean Corpuscular Hemoglobin 28.3 pg (25.0-34.0); Mean Corpuscular Hgb Conc 33.5 g/dL (32.0-36.0); Mean Corpuscular Volume 84.4 fL (80.0-100.0); Mean Platelet Volume 11.6 fL (9.4-12.4); Monocytes % (auto) 9.1 %; Neutrophils # (auto) 3.02 K/uL (1.40-6.50); Neutrophils % (auto) 54.6 %; Platelet Count 142 K/uL (130-400); RDW Coefficient of Variation 13.3 % (11.5-14.5); RDW Standard Deviation 41.2 fL (36.4-46.3); Red Blood Count 4.81 M/uL (4.70-6.10); White Blood Count 5.52 K/ul (4.8-10.8)
[2022-06-01 07:36] LABS: BUN Creatinine Ratio 14.5 (10-20); Calcium 8.4 mg/dl (8.6-10.3); Creatinine Clr Calc Pharmacy 52.1 ml/min; Est GFR (African American) 50.2 ml/min; Est GFR (Non-African American) 43.3 ml/min; Potassium 4.3 mmol/L (3.5-5.1)
[2022-06-01] MEDS: INSULIN ASPART PER UNIT CHARGE SC SCH ×4 (07:58→20:13)
[2022-06-01] MEDS: METOPROLOL SUCC 50MG EXT REL TAB PO SCH (07:58)
[2022-06-01] MEDS ORDERED: Nursing to Pharmacy Communication SCH (08:00)
[2022-06-01] MEDS: HEPARIN SODIUM/DEXTROSE 25,000 UNITS/500 ML BAG IV SCH ×2 (08:01→10:27)
[2022-06-01] MEDS: LANTUS PER UNIT CHARGE SQ SCH ×2 (08:01→20:20)
[2022-06-01 08:10] LABS: Partial Thromboplastin Ratio 1.7
[2022-06-01 08:11] LABS: Partial Thromboplastin Time 45.7 Seconds (21.0-31.0)
[2022-06-01] MEDS ORDERED: ceFAZolin 2,000 MG/15 ML IV PUSH IV ONE (09:04)
--- NOTE | 2022-06-01 09:35 | History & Physical Bridge Note ---
Date of Service June 01, 2022 History & Physical Bridge Note I have examined the patient, reviewed the History & Physical and in the interval since the performance of the History & Physical I have noted the following changes of clinical significance: no changes noted
[2022-06-01] MEDS ORDERED: HEPARIN SOD (PORCINE) 1000 UNIT/ML ONE ×2 (09:41→11:13)
[2022-06-01] MEDS ORDERED: fentaNYL citrate PF 100 MCG/2 ML VIAL ONE ×2 (09:41→10:56)
[2022-06-01] MEDS ORDERED: MIDAZOLAM HCL 1 MG/ML 2ML VIAL ONE ×2 (09:41→10:56)
[2022-06-01] MEDS ORDERED: LIDOCAINE 1% LOCAL 20 ML VIAL ONE (09:42)
[2022-06-01] MEDS ORDERED: Nursing to Pharmacy Communication STA (11:04)
[2022-06-01] MEDS ORDERED: RECOMBINANT IA ONE (11:30)
[2022-06-01] MEDS ORDERED: ALTEPLASE IA ONE (11:30)
[2022-06-01] MEDS ORDERED: SODIUM CHLORIDE 0.9% IA ONE (11:30)
[2022-06-01] MEDS ORDERED: RECOMBINANT IART ONE (11:45)
[2022-06-01] MEDS ORDERED: ALTEPLASE IART ONE (11:45)
[2022-06-01] MEDS ORDERED: SODIUM CHLORIDE 0.9% IART ONE (11:45)
[2022-06-01] MEDS ORDERED: VISIPAQUE IV PRN (12:11)
--- NOTE | 2022-06-01 12:17 | Pre Anesthesia Assessment ---
Date of Service June 01, 2022 Pre Sedation Assessment Vital Signs Temp Pulse Pulse Resp BP BP Pulse Ox 06/01/22 12:10 51 L 18 127/73 98 06/01/22 12:05 50 L 18 146/72 H 96 06/01/22 11:55 53 L 18 146/82 H 98 06/01/22 11:50 53 L 18 160/75 H 98 06/01/22 11:45 53 L 20 137/80 98 06/01/22 11:40 52 L 20 142/76 H 96 06/01/22 11:35 52 L 20 129/72 96 06/01/22 11:30 53 L 20 122/67 96 06/01/22 11:20 53 L 20 114/64 97 06/01/22 11:10 51 L 20 103/60 97 06/01/22 11:05 53 L 20 119/65 97 06/01/22 11:00 54 L 20 98/59 L 97 06/01/22 10:55 54 L 20 117/72 95 06/01/22 10:50 54 L 20 125/68 96 06/01/22 10:45 54 L 20 117/68 96 06/01/22 10:40 54 L 20 132/74 97 06/01/22 10:35 56 L 20 122/75 97 06/01/22 10:30 56 L 20 136/74 97 06/01/22 10:25 56 L 20 126/66 97 06/01/22 10:20 55 L 18 109/72 96 06/01/22 10:15 56 L 16 118/70 98 06/01/22 10:10 56 L 16 110/68 98 06/01/22 10:05 56 L 18 125/82 98 06/01/22 12:00 51 L 18 133/72 96 06/01/22 11:25 53 L 20 124/67 98 06/01/22 11:15 53 L 20 111/69 97 06/01/22 10:05 55 L 18 148/87 H 100 06/01/22 09:18 36.5 C 56 L 16 149/82 H 96 06/01/22 08:00 53 L 06/01/22 07:50 36.6 C 58 L 18 149/83 H 96 06/01/22 03:19 36.7 C 59 L 20 145/72 H 98 06/01/22 00:09 64 05/31/22 23:00 36.6 C 64 19 113/61 95 05/31/22 19:39 36.7 C 67 19 114/65 95 05/31/22 15:33 36.4 C L 61 17 150/66 H 96 05/31/22 14:54 60 O2 Del Method O2 Flow Rate 06/01/22 12:10 Oxymask 4 06/01/22 12:05 Oxymask 4 06/01/22 11:55 Oxymask 4 06/01/22 11:50 Oxymask 4 06/01/22 11:45 Oxymask 4 06/01/22 11:40 Oxymask 4 06/01/22 11:35 Oxymask 4 06/01/22 11:30 Oxymask 4 06/01/22 11:20 Oxymask 4 06/01/22 11:10 Oxymask 4 06/01/22 11:05 Oxymask 4 06/01/22 11:00 Oxymask 4 06/01/22 10:55 Oxymask 4 06/01/22 10:50 Oxymask 4 06/01/22 10:45 Oxymask 4 06/01/22 10:40 Oxymask 4 06/01/22 10:35 Oxymask 4 06/01/22 10:30 Oxymask 4 06/01/22 10:25 Oxymask 4 06/01/22 10:20 Oxymask 4 06/01/22 10:15 Oxymask 4 06/01/22 10:10 Oxymask 4 06/01/22 10:05 Oxymask 4 06/01/22 12:00 Oxymask 4 06/01/22 11:25 Oxymask 4 06/01/22 11:15 Oxymask 4 06/01/22 10:05 Oxymask 4 06/01/22 09:18 Room Air 06/01/22 08:00 06/01/22 07:50 Room Air 06/01/22 03:19 Room Air 06/01/22 00:09 05/31/22 23:00 Room Air 05/31/22 19:39 Room Air 05/31/22 15:33 Room Air 05/31/22 14:54 Cardiovascular RRR, no murmur, no edema Respiratory normal respiratory effort, lungs clear to auscultation Pre-Sedation Airway Assessment Smoking Status: Current every day smoker Hx Sleep Apnea: No Short, Thick Neck: No Thyromental Distance: > or= 3.5 Finger Breadths Oral Cavity: + Dental Abnormalities Mallampati Class: II ASA: ASA3 NPO Status Date of Last Intake of Fluids: 06/01/22 Time of Last Intake of Fluids: 00:00 Last Oral Intake of Fluids Comment: sip with meds this am at 0730 Date of Last Intake of Solid Food: 06/01/22 Time of Last Intake of Solid Foods: 00:00 Procedure Planning Contraindications for Sedation: none Current Medications Reviewed: No Notes The planned sedation has been discussed with the patient. Informed Consent was obtained. I have identified the patient, determined the appropriateness of sedation and have assessed the patient immediately prior to the procedure. All medicine(s) and interventions are by my order.
--- NOTE | 2022-06-01 12:19 | Post Operative Brief Note ---
Immediate Post Op Note v1 Date of Surgery June 01, 2022 Pre & Post Diagnosis Operation Date: 06/01/22 09:50 Pre-Op Diagnosis: Ischemic Left Leg Post-Op Diagnosis: Ischemic Left Leg I identified the patient and participated in the time-out.: Yes Procedure Operation Date: 06/01/22 09:50 Actual Procedures p Left Lower Extremity Arteriogram, Ultrasound Localization of Right Femoral Artery, Pulse [place] Thrombolysis Left Superficial and Popliteal Arteries, Percutaneous Transluminal Angioplasty and Stenting of Left Superficial and Popliteal Arteries, Moderate Sedation 1006 -1233(Right) - Bhavin Ambriz MD Surgeon Bhavin Ambriz MD Blast Furnace Tender MD Ha Estimated Blood Loss 20 Findings Consistent with Post-Op Diagnosis Anesthesia Type RN Sedation Complications none Disposition Accompanied Patient To Recovery: No Disposition: Recovery Room
--- NOTE | 2022-06-01 12:30 | Procedure Note ---
Angiogram Post Procedure Fluoroscopy Time (minutes): 15.5 Conscious Sedation Time (minutes): 147 Radiation (mGy): 69 Contrast: 60 Post Operative Report Pre & Post Diagnosis Operation Date: 06/01/22 09:50 Pre-Op Diagnosis: Ischemic Left Leg Post-Op Diagnosis: Ischemic Left Leg I identified the patient and participated in the time-out.: Yes Procedure Operation Date: 06/01/22 09:50 Actual Procedures p Left Lower Extremity Arteriogram, Ultrasound Localization of Right Femoral Artery, Pulse [place] Thrombolysis Left Superficial and Popliteal Arteries, Percutaneous Transluminal Angioplasty and Stenting of Left Superficial and Popliteal Arteries, Moderate Sedation 1006 -1233(Right) - Bhavin Ambriz MD Surgeon Bhavin Ambriz MD Curriculum Writer MD aH Estimated Blood Loss 20 Findings Consistent with Post-Op Diagnosis Bilateral PT doppler signals. Specimens none Drains None Anesthesia Type RN Sedation Complications None Indications 71-year-old male with history of left SFA stenting on back in 2018 presented to the ED this weekend with pain and numbness of the left foot. His a stent was found to be down. He was started on heparin drip. He was consented for left lower extremity angiogram with possible intervention and thrombolysis. Description of Procedure Patient was brought to the angio suite and placed in supine position. Both groins were draped and prepped in an standard fashion. Conscious sedation was administered by the nurse. Safety timeout was performed to identify the patient, date of and the correct site of the procedure. Ultrasound-guided access of the right common femoral artery was performed. There was a little bit of subcutaneous scar that required serial dilatation. We used an 18-gauge needle using modified Seldinger technique, a J wire was then advanced. With serial dilation, we established a 5 [place] access sheath. A floppy Glidewire was advanced and arm, catheter was used to cross the left iliac system. A diagnostic angiogram of the left lower extremity was performed which demonstrated a patent profunda and diffusely diseased SFA. The distal SFA stent appeared to be occluded with reconstitution of the behind the knee. PT and peroneal with main runoff. We then took the catheter out and exchanged the 5 [place] with a 60 [place] destination sheath. The patient was heparinized with 3000 units of IV heparin. A combination of stiff Glidewire and a quick cross catheter were advanced and we were able to cross the occlusion. We then confirmed flow through the true lumen via the quick cross catheter. The wire was then advanced and a quick cross catheter was removed. AngioJet Omni catheter was then advanced and reperformed pharmacomechanical thrombolysis with a total of 10 mg of tPA and total treatment time of 208 seconds for the a Pop and the SFA stent segment. We let the tPA dwell for approximately 10 minutes. Then the AngioJet catheter was removed. Diagnostic angiogram showed blood flow through the stent and residual narrowing distal to the stent. We then ballooned that segment using a 6 x 120 mm [place] balloon. We exchanged our wire to V-18. A Viabahn 6 mm x 15 cm stent was selected to realigning the old stent and was extended little bit distally however still above the knee joint. We then ballooned the stent using 6 x 120 millimeter Mission. A completion angiogram demonstrated satisfactory blood flow through the stent and distal runoff of main body the PT. There was few clots in the distal peroneal but the flow through the PT was brisk. Sheath and wire was removed and manual pressure was held for a total of 20 minutes on the access site. All counts were correct. Dr. Ambriz was present for the entirety of the case. Patient had bilateral PT Doppler signals at the end of the procedure. I attest to the content of the Intraoperative Record and any orders documented therein. Any exceptions are noted below. Supervising Physician Co-Signing Physician Notes Bhavin Ambriz
--- NOTE | 2022-06-01 12:38 | Procedure Note ---
Post Operative Report Pre & Post Diagnosis Operation Date: 06/01/22 09:50 Pre-Op Diagnosis: Ischemic Left Leg Post-Op Diagnosis: Ischemic Left Leg I identified the patient and participated in the time-out.: Yes Procedure Operation Date: 06/01/22 09:50 Actual Procedures p Left Lower Extremity Arteriogram, Ultrasound Localization of Right Femoral Artery, Pulse [place] Thrombolysis Left Superficial and Popliteal Arteries, Percutaneous Transluminal Angioplasty and Stenting of Left Superficial and Popliteal Arteries, Moderate Sedation 1006 -(Right) - Bhavin Ambriz MD Surgeon Madelyn Shetty MD Solid Glass Rod Dowel Machine Operator MD Ha Estimated Blood Loss 20 I attest to the content of the Intraoperative Record and any orders documented therein. Any exceptions are noted below. Supervising Physician Co-Signing Physician Notes Bhavin Ambriz
--- NOTE | 2022-06-01 12:45 | Post Anesthesia Assessment ---
Date of Service June 01, 2022 Post Sedation Assessment Vital Signs Temp Pulse Pulse Resp BP BP Pulse Ox 06/01/22 12:33 53 L 18 142/77 H 94 06/01/22 12:28 51 L 18 137/75 96 06/01/22 12:25 51 L 18 135/77 98 06/01/22 12:20 57 L 18 149/79 H 98 06/01/22 12:15 53 L 18 134/76 98 06/01/22 12:10 51 L 18 127/73 98 06/01/22 12:05 50 L 18 146/72 H 96 06/01/22 11:55 53 L 18 146/82 H 98 06/01/22 11:50 53 L 18 160/75 H 98 06/01/22 11:45 53 L 20 137/80 98 06/01/22 11:40 52 L 20 142/76 H 96 06/01/22 11:35 52 L 20 129/72 96 06/01/22 11:30 53 L 20 122/67 96 06/01/22 11:20 53 L 20 114/64 97 06/01/22 11:10 51 L 20 103/60 97 06/01/22 11:05 53 L 20 119/65 97 06/01/22 11:00 54 L 20 98/59 L 97 06/01/22 10:55 54 L 20 117/72 95 06/01/22 10:50 54 L 20 125/68 96 06/01/22 10:45 54 L 20 117/68 96 06/01/22 10:40 54 L 20 132/74 97 06/01/22 10:35 56 L 20 122/75 97 06/01/22 10:30 56 L 20 136/74 97 06/01/22 10:25 56 L 20 126/66 97 06/01/22 10:20 55 L 18 109/72 96 06/01/22 10:15 56 L 16 118/70 98 06/01/22 10:10 56 L 16 110/68 98 06/01/22 10:05 56 L 18 125/82 98 06/01/22 12:00 51 L 18 133/72 96 06/01/22 11:25 53 L 20 124/67 98 06/01/22 11:15 53 L 20 111/69 97 06/01/22 10:05 55 L 18 148/87 H 100 06/01/22 09:18 36.5 C 56 L 16 149/82 H 96 06/01/22 08:00 53 L 06/01/22 07:50 36.6 C 58 L 18 149/83 H 96 06/01/22 03:19 36.7 C 59 L 20 145/72 H 98 06/01/22 00:09 64 05/31/22 23:00 36.6 C 64 19 113/61 95 05/31/22 19:39 36.7 C 67 19 114/65 95 05/31/22 15:33 36.4 C L 61 17 150/66 H 96 05/31/22 14:54 60 O2 Del Method O2 Flow Rate 06/01/22 12:33 Room Air 06/01/22 12:28 Room Air 06/01/22 12:25 Oxymask 4 06/01/22 12:20 Oxymask 4 06/01/22 12:15 Oxymask 4 06/01/22 12:10 Oxymask 4 06/01/22 12:05 Oxymask 4 06/01/22 11:55 Oxymask 4 06/01/22 11:50 Oxymask 4 06/01/22 11:45 Oxymask 4 06/01/22 11:40 Oxymask 4 06/01/22 11:35 Oxymask 4 06/01/22 11:30 Oxymask 4 06/01/22 11:20 Oxymask 4 06/01/22 11:10 Oxymask 4 06/01/22 11:05 Oxymask 4 06/01/22 11:00 Oxymask 4 06/01/22 10:55 Oxymask 4 06/01/22 10:50 Oxymask 4 06/01/22 10:45 Oxymask 4 06/01/22 10:40 Oxymask 4 06/01/22 10:35 Oxymask 4 06/01/22 10:30 Oxymask 4 06/01/22 10:25 Oxymask 4 06/01/22 10:20 Oxymask 4 06/01/22 10:15 Oxymask 4 06/01/22 10:10 Oxymask 4 06/01/22 10:05 Oxymask 4 06/01/22 12:00 Oxymask 4 06/01/22 11:25 Oxymask 4 06/01/22 11:15 Oxymask 4 06/01/22 10:05 Oxymask 4 06/01/22 09:18 Room Air 06/01/22 08:00 06/01/22 07:50 Room Air 06/01/22 03:19 Room Air 06/01/22 00:09 05/31/22 23:00 Room Air 05/31/22 19:39 Room Air 05/31/22 15:33 Room Air 05/31/22 14:54 Recovery Score Activity: Moves 4 extremities Respiration: Deep Breath/Cough Circulation: +/-20% PreAnes Value Consciousness: Fully Awake Oxygen Saturation: > 92% On Room Air Post Anesthesia Score: 10 Discharge Sedation Level of Care: Fast Track Phase II Post Sedation Plan On clinical assessment, the patient appears to have tolerated the sedation without complications. Patient is recovering as anticipated. Patient will continue to be monitored by nursing and may be discharged when sedation discharge criteria are met per below protocol. Upon Completions of procedure up to 15 minutes continue every 5 minute vital signs and the P.A.R. score; then discharge to a Phase I or Fast Track to Phase II per the following guidelines: * Discharge Patient to appropriate Phase II area if PAR is 8 or greater or return to pre- procedure baseline. The post - procedure orders will be as directed. * If PAR score is less than 8 or not return to pre-procedure baseline then patient will follow Phase I monitoring till PAR is reached for Phase II. The Phase I may be done in procedure room or may call to secure a Phase I area. * If naloxone or flumazenil are used for reversal, hold in Phase I for continued monitoring from when last reversal dose was given for a minimum of 60 minutes or longer pending the nurse and/or physician discretion of patient condition before discharge to Phase II. Please call the Sedation Physician to re-evaluate and complete post-note for discharge to Phase II area. Do NOT discharge from procedure sedation or Phase 1 until post- sedation evaluation note is complete by procedure /sedation MD Sedation Discharge Instructions to be given to the patient at discharge to home.
[2022-06-01] MEDS ORDERED: CLOPIDOGREL BISULFATE 300 MG TAB PO STA (12:53)
[2022-06-01] MEDS: SODIUM CHLORIDE 0.9% 1000ML 1,000 ML IV SCH (13:32)
[2022-06-01] MEDS: SERTRALINE HCL 50 MG TABLET PO SCH (13:58)
[2022-06-01] MEDS: ATORVASTATIN 40 MG TAB PO SCH (13:58)
[2022-06-01] MEDS: PANTOprazole 40 MG TAB PO SCH (13:59)
[2022-06-01] MEDS: VALSARTAN/SACUBITRIL 26/24MG TAB PO SCH ×2 (13:59→20:20)
--- NOTE | 2022-06-01 16:33 | Hospitalist Progress Note ---
Date of Service June 01, 2022 Assessment & Plan (1) Arterial occlusion, lower extremity: Plan: Ultrasound study showed severe hemodynamically significant stenosis at the distal superficial artery and no significant flow below the popliteal artery, and no evidence of DVT on venous Dopplers. Vascular surgery consultation appreciated. Left lower extremity arteriogram completed today, June 01, with angioplasty and stenting of the left SFA and left popliteal artery. Perfusion of the left foot is much improved. No overt cyanosis. (2) Type 2 diabetes mellitus: Plan: He is now on basal insulin therapy which we will continue at discharge. ADA diet. Sliding scale coverage. Continue current medical management (3) Heart failure with mid-range ejection fraction: Plan: Known ejection fraction 40-45%. Currently stable. Monitor intake and output. Continue current medical management (4) HTN (hypertension): Plan: chronic and stable . Continue current medical management Plan Hopeful discharge to home tomorrow, June 02, on insulin therapy. Admission and Anticipated Discharge Date Admission Date: May 30, 2022 Subjective Alert and oriented. He had arterial intervention on the left leg today with angioplasty and stenting of the left SFA and left popliteal artery. Perfusion of the left foot is much better now. He remains on Lantus which is new for him and he will go home on basal insulin therapy. Creatinine stable. He is currently on IV fluids. Hopefully home tomorrow, June 02 Review of Systems Review of Systems: Constitutional-no fever or chills ENT-no blurred vision, no double vision, no epistaxis, no sore throat Respiratory-no cough, no wheezing, no shortness of breath Cardiac-no palpitations, no chest pain, no syncope GI-no nausea, vomiting, diarrhea, melena, hematochezia -no urinary retention, no urinary incontinence, no dysuria, no hematuria Musculoskeletal-no joint pain, no muscle tenderness Vascularleft lower extremity discomfort has diminished since admission. Skin-no bruising, no rashes, no pruritus Neuro-no isolated weakness, no paresthesia, no weakness Psych-no depression, no anxiety Physical Exam Physical Exam: General-alert and oriented x3, no fevers, no chills HEENT-head atraumatic and normocephalic, pupils equal and reactive to light, ex traocular muscles intact Neck-no lymphadenopathy or thyromegaly, trachea midline Chest-clear to auscultation percussion. No rales wheezing or rhonchi Cardiac-regular rate and rhythm, normal S1 and S2 Abdomen-normal bowel sounds, nontender, no hepatosplenomegaly Extremities-no edema Vascularleft foot is cooler than the right but improved perfusion since intervention earlier today. No overt cyanosis Neuro-cranial nerves II through XII intact, motor and sensory function within normal limits, strength symmetrical , no focal deficits Psych-normal affect, normal mood Results & Data Results & Data Vital Signs (Past 12 Hours) Vital Signs Temp Pulse Pulse Resp BP BP Pulse Ox 06/01/22 16:00 56 L 20 126/70 95 06/01/22 14:58 55 L 20 122/74 96 06/01/22 14:00 55 L 18 142/74 H 95 06/01/22 13:26 61 20 131/72 95 06/01/22 13:15 60 21 153/76 H 95 06/01/22 13:00 51 L 20 128/73 96 06/01/22 12:45 36.5 C 51 L 16 129/76 98 06/01/22 12:33 53 L 18 142/77 H 94 06/01/22 12:28 51 L 18 137/75 96 06/01/22 12:25 51 L 18 135/77 98 06/01/22 12:20 57 L 18 149/79 H 98 06/01/22 12:15 53 L 18 134/76 98 06/01/22 12:10 51 L 18 127/73 98 06/01/22 12:05 50 L 18 146/72 H 96 06/01/22 11:55 53 L 18 146/82 H 98 06/01/22 11:50 53 L 18 160/75 H 98 06/01/22 11:45 53 L 20 137/80 98 06/01/22 11:40 52 L 20 142/76 H 96 06/01/22 11:35 52 L 20 129/72 96 06/01/22 11:30 53 L 20 122/67 96 06/01/22 11:20 53 L 20 114/64 97 06/01/22 11:10 51 L 20 103/60 97 06/01/22 11:05 53 L 20 119/65 97 06/01/22 11:00 54 L 20 98/59 L 97 06/01/22 10:55 54 L 20 117/72 95 06/01/22 10:50 54 L 20 125/68 96 06/01/22 10:45 54 L 20 117/68 96 06/01/22 10:40 54 L 20 132/74 97 06/01/22 10:35 56 L 20 122/75 97 06/01/22 10:30 56 L 20 136/74 97 06/01/22 10:25 56 L 20 126/66 97 06/01/22 10:20 55 L 18 109/72 96 06/01/22 10:15 56 L 16 118/70 98 06/01/22 10:10 56 L 16 110/68 98 06/01/22 10:05 56 L 18 125/82 98 06/01/22 12:00 51 L 18 133/72 96 06/01/22 11:25 53 L 20 124/67 98 06/01/22 11:15 53 L 20 111/69 97 06/01/22 10:05 55 L 18 148/87 H 100 06/01/22 09:18 36.5 C 56 L 16 149/82 H 96 06/01/22 08:00 53 L 06/01/22 07:50 36.6 C 58 L 18 149/83 H 96 O2 Del Method O2 Flow Rate 06/01/22 16:00 Room Air 06/01/22 14:58 Room Air 06/01/22 14:00 Room Air 06/01/22 13:26 Room Air 06/01/22 13:15 Room Air 06/01/22 13:00 Room Air 06/01/22 12:45 Room Air 06/01/22 12:33 Room Air 06/01/22 12:28 Room Air 06/01/22 12:25 Oxymask 4 06/01/22 12:20 Oxymask 4 06/01/22 12:15 Oxymask 4 06/01/22 12:10 Oxymask 4 06/01/22 12:05 Oxymask 4 06/01/22 11:55 Oxymask 4 06/01/22 11:50 Oxymask 4 06/01/22 11:45 Oxymask 4 06/01/22 11:40 Oxymask 4 06/01/22 11:35 Oxymask 4 06/01/22 11:30 Oxymask 4 06/01/22 11:20 Oxymask 4 06/01/22 11:10 Oxymask 4 06/01/22 11:05 Oxymask 4 06/01/22 11:00 Oxymask 4 06/01/22 10:55 Oxymask 4 06/01/22 10:50 Oxymask 4 06/01/22 10:45 Oxymask 4 06/01/22 10:40 Oxymask 4 06/01/22 10:35 Oxymask 4 06/01/22 10:30 Oxymask 4 06/01/22 10:25 Oxymask 4 06/01/22 10:20 Oxymask 4 06/01/22 10:15 Oxymask 4 06/01/22 10:10 Oxymask 4 06/01/22 10:05 Oxymask 4 06/01/22 12:00 Oxymask 4 06/01/22 11:25 Oxymask 4 06/01/22 11:15 Oxymask 4 06/01/22 10:05 Oxymask 4 06/01/22 09:18 Room Air 06/01/22 08:00 06/01/22 07:50 Room Air Laboratory Results 06/01/22 06:20 06/01/22 06:20 PG Care Time/CCT Total # of Minutes Spent Total Time Spent with Patient: Total time spent is greater than 50% in coordination of care (as documented) at patient's floor/unit and/or counseling patient: Coding Level of Care Code 75011 SUB INP/OBS CARE 3/50MIN Diagnoses Arterial occlusion, lower extremity I70.209 Type 2 diabetes mellitus E11.9 Heart failure with mid-range ejection fraction I50.22 HTN (hypertension) I10
[2022-06-02] MEDS: SODIUM CHLORIDE 0.9% 1000ML 1,000 ML IV SCH
[2022-06-02 06:52] LABS: Basophils # (auto) 0.03 K/uL (0-0.2); Basophils % (auto) 0.5 %; Eosinophils # (auto) 0.13 K/uL (0-0.50); Hematocrit (blood only) 41.2 % (42.0-52.0); Hemoglobin 13.3 g/dl (14.0-18.0); Immature Granulocytes # (auto) 0.03 K/uL (0.01-0.20); Immature Granulocytes % (auto) 0.5 %; Lymphocytes # (auto) 1.16 K/uL (1.2-3.4); Lymphocytes % (auto) 18.1 %; Mean Corpuscular Hemoglobin 28.1 pg (25.0-34.0); Mean Corpuscular Hgb Conc 32.3 g/dL (32.0-36.0); Mean Corpuscular Volume 87.1 fL (80.0-100.0); Mean Platelet Volume 11.2 fL (9.4-12.4); Monocytes % (auto) 7.8 %; Neutrophils # (auto) 4.55 K/uL (1.40-6.50); Neutrophils % (auto) 71.1 %; Platelet Count 128 K/uL (130-400); RDW Coefficient of Variation 13.6 % (11.5-14.5); RDW Standard Deviation 42.6 fL (36.4-46.3); Red Blood Count 4.73 M/uL (4.70-6.10)
[2022-06-02 07:08] LABS: BUN Creatinine Ratio 15.4 (10-20); Calcium 8.2 mg/dl (8.6-10.3); Creatinine Clr Calc Pharmacy 55.6 ml/min; Est GFR (African American) 54.3 ml/min; Est GFR (Non-African American) 46.9 ml/min; Potassium 4.6 mmol/L (3.5-5.1)
[2022-06-02] MEDS: LANTUS PER UNIT CHARGE SQ SCH (08:15)
[2022-06-02] MEDS: INSULIN ASPART PER UNIT CHARGE SC SCH ×2 (08:15→12:03)
[2022-06-02] MEDS: VALSARTAN/SACUBITRIL 26/24MG TAB PO SCH (08:17)
[2022-06-02] MEDS: METOPROLOL SUCC 50MG EXT REL TAB PO SCH (08:17)
[2022-06-02] MEDS: ATORVASTATIN 40 MG TAB PO SCH (08:17)
[2022-06-02] MEDS: PANTOprazole 40 MG TAB PO SCH (08:17)
[2022-06-02] MEDS: SERTRALINE HCL 50 MG TABLET PO SCH (08:17)
[2022-06-02] MEDS ORDERED: CLOPIDOGREL BISULFATE 75 MG TAB PO SCH (09:00)
--- NOTE | 2022-06-02 10:19 | Surgery Progress Note ---
Date of Service June 02, 2022 Assessment & Plan (1) Arterial occlusion, lower extremity: Plan: Pt underwent LLE angio with pulse spray thrombolysis, RUG CLEANER and Stenting of SFA and POP arteries. Pt doing well post op. Foot warm, pink, excellent refill. OK for d/c from vascular standpoint on Plavix and ASA. Discussed smoking cessation with pt, he is pre contemplative. Will see in office in 2 weeks. Admission and Anticipated Discharge Date Admission Date: May 30, 2022 Subjective 71 yo m POD #1 after undergoing LLE angio with pulse thrombolysis, RUG CLEANER/stenting of SFA and POP arteries, seen in f/u today. Pt states his foot feels warm, no pain or numbness at this time. Review of Systems Review of Systems: All systems reviewed & are unremarkable except as noted in HPI & below Physical Exam Constitutional: WD/WN, vitals as above Cardiovascular: RRR, no murmur, no edema Vessels: femoral pulses present, posterior tibial pulses present (good with doppler BLE) and dorsalis pedis pulses present (Good with doppler) Musculoskeletal: no cyanosis or clubbing, extremities motor strength 5/5 Neurologic: CN's II-XI intact bilaterally and moves all extremities Psychiatric: Orientation: alert and oriented x 3 Results & Data Vital Signs (Past 12 Hours) Vital Signs Temp Pulse Pulse Resp BP Pulse Ox O2 Del Method 06/02/22 08:00 Room Air 06/02/22 07:28 60 06/02/22 06:57 36.7 C 73 18 128/79 95 Room Air 06/02/22 02:43 36.6 C 75 18 135/81 97 Room Air 06/01/22 23:26 66 06/01/22 23:11 36.5 C 71 18 128/74 96 Room Air
--- NOTE | 2022-06-02 13:23 | Discharge Summary ---
Date of Service June 02, 2022 Admission HPI Per Admitting Provider Cody Alvarez is a 71 year old with a past medical history of PAD(previous stent left leg), Type II DM, NSTEMI, hyperlipidemia, CAD (S/P CABG x2), chronic HFrEF (40-45%) and thrombosed left superficial femoral artery with history of thrombolysis who presented to the ER with acute pale/cool left foot and pain in left leg from knee to foot x 1 day. Patient's symptoms began about 12 hours prior to hospital assessment and did not resolve with aspirin and advil. He is on DAPT. Ultrasound noted severe hemodynamically significant stenosis at the distal superficial artery and no significant flow below the popliteal artery, and no evidence of DVT on venous Dopplers. Patient's foot suddenly became less painful, warmer, and with increased perfusion/redness by the time he arrived back in the ER. At hospitalist bedside assessment PT/DP pulses are not palpable; however a doppler was used and a pulse was heard that was monophasic flow at the left dorsalis pedis was appreciated and site of Doppler was marked w ith surgical pen. Cap refill sluggish in the hallux, foot was cool but not cold and was not blue/pale. Did discuss risk/benefits of transfer versus heparinization and awaiting vascular assessment with Dr. Ambriz. And discussed surgery here at [facility] would not be available until at least tomorrow. Patient initially refused transfer while in the ER, upon further discussions and discussed the risks of loosing his foot, he then reports if he were to lose his pulse, and the food would become acutely ischemic he would be willing to be transferred but does not wish to do this unless absolutely necessary. As he currently has monophasic flow to the foot and perfusion is improved compared to initial evaluation in the ER, it is reasonable to continue heparinization with vascular consult at this time. Patient is aware that he is at high risk for reocclusion, and delay to intervention could result in loss of tissue or even amputation. We will continue vascular assessments overnight, Doppler probe left at bedside. Heparin started, agree with assessment and management as above. Patient is very noncompliant with his diet and states he drinks mainly fruit punch, lemon aide and orange juice with occasional regular sodas. He states he is very afraid of having hypoglycemia. Discussed with patient the risks of continued hyperglycemia and uncontrolled diabetes. Patient denies any chest pain, abdominal pain, SOB, Dyspnea. Bedside doppler with monophasic pulse at PT left. CBC normal, PT 11, INR 1, BS elevted at 635 Last HgbA1C in chart was 06/2021 9.0 Principal Diagnosis Left lower extremity arterial obstruction with left lower extremity ischemia, uncontrolled type 2 diabetes Discharge Exam General-alert and oriented x3, no fevers, no chills HEENT-head atraumatic and normocephalic, pupils equal and reactive to light, extraocular muscles intact Neck-no lymphadenopathy or thyromegaly, trachea midline Chest-clear to auscultation percussion. No rales wheezing or rhonchi Cardiac-regular rate and rhythm, normal S1 and S2 Abdomen-normal bowel sounds, nontender, no hepatosplenomegaly Extremities-no edema Vascularleft foot is cooler than the right but improved perfusion since intervention on June 01. No overt cyanosis Neuro-cranial nerves II through XII intact, motor and sensory function within normal limits, strength symmetrical , no focal deficits Psych-normal affect, normal mood Discharge Data Allergies Allergy/AdvReac Type Severity Reaction Status Date / Time cat dander Allergy Intermediate CONGESTION Verified 05/30/22 15:30 Consultations 05/30/22 15:01 ED Decision to Admit Stat 05/30/22 18:10 Consult Vascular Surgery Stat Procedures Performed Operation Date: 06/01/22 09:50 Actual Procedures p Left Lower Extremity Arteriogram, Ultrasound Localization of Right Femoral Artery, Pulse [place] Thrombolysis Left Superficial and Popliteal Arteries, Percutaneous Transluminal Angioplasty and Stenting of Left Superficial and Popliteal Arteries, Moderate Sedation 1006 - 1233(Right) - Bhavin Ambriz MD Ordered Studies 05/30/22 12:57 US arterial duplex LE LT Stat US venous doppler LE LT Stat 06/01/22 07:13 EV angio LE LT Routine Hospital Course (1) Arterial occlusion, lower extremity: Ultrasound study showed severe hemodynamically significant stenosis at the distal superficial artery and no significant flow below the popliteal artery, and no evidence of DVT on venous Dopplers. Vascular surgery consultation appreciated. Left lower extremity arteriogram completed on June 01, with angioplasty and stenting of the left SFA and left popliteal artery. Perfusion of the left foot is much improved. No overt cyanosis. (2) Type 2 diabetes mellitus: He is now on basal insulin therapy which we will continue at discharge. Lantus dosage uptitrated todayJune 02. ADA diet. Sliding scale coverage. Continue current medical management (3) Heart failure with mid-range ejection fraction: Known ejection fraction 40-45%. Currently stable. Monitor intake and output. Continue current medical management (4) HTN (hypertension): chronic and stable . Continue current medical management Plan Discharge to home todayJune 02, on insulin therapy. Total Time Total Time Spent Total Time Spent (In Minutes): 40 minutes Discharge Plan Discharge Items Patient Disposition: Home - Self-Care Reason For Visit: ADMISSION Discharge Diagnosis: Ischemic left leg and left foot, left lower extremity arterial obstruction Condition on Discharge: Good Activity: Resume your previous activity Non-emergency contact: Primary Care Provider Call non-emergency contact if: you have any medication questions and your symptoms worsen Follow-up/Referrals: Red Fraire MD [Primary Care Provider] - Diet: Carb Consistent or DM2 and Heart Healthy Addtl Attending Provider Instructions: Take insulin twice daily as directed. Check sugar levels twice daily before each insulin shot at breakfast and suppertime. Keep a record to show your doctor Pending Studies at Discharge: No Stand-Alone Forms: My [facility] [place], Smoking Cessation Medications and DC Order Prescriptions: New metoprolol succinate 50 mg Tablet Extended Release 24 Hr 100 mg PO DAILY Qty: 30 0RF nitroglycerin [Nitrostat] 0.4 mg Tablet, Sublingual 0.4 mg sublingual UD PRN (Reason: chest pain) Qty: 25 0RF insulin glargine [Lantus Solostar U-100 Insulin] 100 unit/mL (3 mL) insulin pen 15 unit subcut BID Qty: 15 0RF Continued sertraline 50 mg tablet 50 mg PO DAILY sacubitril-valsartan 24-26 mg tablet 1 tab PO BID metformin 1,000 mg tablet extended release 24hr 1,000 mg PO BID atorvastatin 80 mg tablet 80 mg PO DAILY clopidogrel 75 mg tablet 75 mg PO DAILY aspirin [Freedom Low Dose Aspirin] 81 mg Tablet,Delayed Release (Dr/Ec) 81 mg PO DAILY omeprazole 20 mg Tablet,Delayed Release (Dr/Ec) 20 mg PO DAILYBB spironolactone 25 mg Tablet 25 mg PO QAM Qty: 30 2RF Jardiance 25 mg Tablet 25 mg PO QAM Jardiance 10 mg Tablet 10 mg PO QAM Discontinued metoprolol succinate 200 mg tablet extended release 24 hr 100 mg PO DAILY Discharge Orders: Discharge Order (Routine); Ordered 06/02/22 Ordered By: Gregorio Walters Admission Data Admit Date/Time: 05/30/22 16:40 Attending Provider: Gregorio Walters Admit Provider: Ash Horne Primary Care Provider: Red Fraire Other Providers: Ash Horne ; Bhavin Ambriz Coding Level of Care Code 36070 INP/OBS DISCH >30 MIN Diagnoses Arterial occlusion, lower extremity I70.209 Type 2 diabetes mellitus E11.9 Heart failure with mid-range ejection fraction I50.22 HTN (hypertension) I10
[2022-06-02] MEDS ORDERED: LANTUS PER UNIT CHARGE SQ SCH (21:00)
== END 2022-06-02 13:58 | disposition home or self-care (01) | DRG 253 ==
LOC: ED 12:18 → SUATTDRO 16:40 → 2S 16:40

== ENCOUNTER 2023-07-12 00:11 | Inpatient (IN) ==
[2023-07-12] MEDS: SODIUM CHLORIDE 0.9% 500 ML IV ONE ×2 (00:30→22:48)
[2023-07-12 00:39] LABS: iSTAT Creatinine 2.7 mg/dl (0.6-1.3); iSTAT Ionized Calcium 1.13 mmol/l (1.12-1.32)
[2023-07-12] MEDS ORDERED: VANCOMYCIN CONSULT ACTIVE PRN (00:40)
[2023-07-12] MEDS: CEFEPIME 2,000 MG/20 ML VIAL IV STA (00:46)
[2023-07-12 01:03] LABS: Albumin Globulin Ratio 0.7 (0.9-2); Albumin Level 3.3 gm/dl (3.4-5.0); BUN Creatinine Ratio 19.8 (10-20); Bilirubin,Total 0.9 mg/dl (0.2-1.0); Calcium 9.5 mg/dl (8.6-10.3); Creatinine Clr Calc Pharmacy 31.8 ml/min; Est GFR (African American) 29.1 ml/min; Est GFR (Non-African American) 25.1 ml/min; Globulin 4.7 gm/dl (2.5-4.0); Potassium 3.9 mmol/L (3.5-5.1)
[2023-07-12 01:10] LABS: Troponin I High Sensitivity 39.4 pg/ml (0-20)
[2023-07-12 01:18] LABS: Hematocrit (blood only) 42.1 % (42.0-52.0); Hemoglobin 13.7 g/dl (14.0-18.0); Mean Corpuscular Hemoglobin 25.8 pg (25.0-34.0); Mean Corpuscular Hgb Conc 32.5 g/dL (32.0-36.0); Mean Corpuscular Volume 79.3 fL (80.0-100.0); Mean Platelet Volume 11.8 fL (9.4-12.4); Platelet Count 152 K/uL (130-400); RDW Coefficient of Variation 14.5 % (11.5-14.5); RDW Standard Deviation 41.5 fL (36.4-46.3); Red Blood Count 5.31 M/uL (4.70-6.10); White Blood Count 8.71 K/ul (4.8-10.8)
[2023-07-12 01:19] LABS: Thyroid Stimulating Hormone 2.419 uIu/ml (0.300-4.500)
[2023-07-12] MEDS: VANCOMYCIN HCL 2,500 MG in SODIUM CHLORIDE 0.9% 500 ML IV ONE (01:20)
[2023-07-12 01:23] LABS: Basophils # (auto) 0.06 K/uL (0.00-0.20); Basophils % (auto) 0.7 %; Dohle Bodies 1+; Eosinophils # (auto) 0.05 K/uL (0.00-0.50); Eosinophils % (auto) 0.6 %; Immature Granulocytes # (auto) 0.12 K/uL (0.01-0.20); Immature Granulocytes % (auto) 1.4 %; Lymphocytes # (auto) 0.29 K/uL (1.20-3.40); Lymphocytes % (auto) 3.3 %; Monocytes # (auto) 0.23 K/uL (0.11-0.59); Monocytes % (auto) 2.6 %; Neutrophils # (auto) 7.96 K/uL (1.40-6.50); Neutrophils % (auto) 91.4 %; Spherocytes 1+; Tear Drop Cells 1+
[2023-07-12 01:52] LABS: Appearance Urine Cloudy (Clear); Bacteria Urine Automated None Seen (None Seen); Bilirubin Urine Negative (Negative); Blood Urine Negative (Negative); Color Urine Dark Yellow; Glucose Urine UA 3+ (Negative); Granular Casts Urine Present /lpf (None Prsent); Ketones Urine Trace (Negative); Leukocyte Esterase Urine Negative (Negative); Nitrite Urine Negative (Negative); Protein Urine 1+ (Negative); RBC Urine Automated 0-2 /hpf (0-2); Urobilinogen Urine Negative (Negative); WBC Urine Automated 0-5 /hpf (0-5)
--- NOTE | 2023-07-12 01:59 | Emergency Department Note ---
Impression & Plan Sepsis, Multifocal pneumonia ED Provider Note NAME: ELLEN PELAEZ AGE: 72 SEX: M : 1950 ARRIVES VIA: Ambulance INFORMANT: Patient, ED PROVIDER(S): Lilliana Albert MD CHIEF COMPLAINT: Weakness HPI: This is a 72-year-old male with history of heart failure, diabetes, CABG, CAD, arterial occlusions presenting for weakness. Patient states that he has felt weak over the past few days. The patient family was concerned about this and called EMS. Patient reported hypotensive and tachycardic in route. Patient states that his left lower extremity at the toes has had infection and is getting wound care for this. He notes that his bandages were last changed last week. He notes he is unable to get up at home due to weakness. He notes no current chest pain, some slight chest pressure today however. He does feel somewhat short of breath. Has had previous CHF exacerbations and heart failure in the past ROS: See above HPI for pertinent positives & negatives. A total of 10 systems reviewed and were otherwise negative. PHYSICAL EXAMINATION: General: resting comfortably in no acute distress Head: Normocephalic and atraumatic Eyes: Normal inspection, extraocular muscles intact Ear, nose, throat: Normal external exam Neck: Normal range of motion Respiratory: lungs clear to auscultation bilaterally Cardiovascular: Regular rate/rhythm, no murmur GI: soft, nontender, no guarding or rebound Extremities: nontender, moves all extremities Neuro: The patient awake and alert, appropriately conversive, no focal deficits, symmetric faces Skin: Warm, dry, and intact MEDICAL DECISION MAKING: This is 72-year-old male presenting for weakness. Patient is hypotensive, tachycardic. He is in sinus tachycardia at a rate of 130 with occasional PVCs. Concern for acute sepsis. Will do gentle rehydration due to patient's previous history of CHF. He does have some shortness of breath currently as well as chest pressure concerning for CHF. Will treat empirically for sepsis with cefepime and vancomycin. Patient's lactic acid level is 5.7 currently. -On arrival patient was hypotensive to the 70s -ECG independently interpreted by me with sinus tachycardia, rate of 132, left axis deviation, normal MD, a clear regular branch block, normal QTc, no ST segment elevations consistent with STEMI criteria -Chest x-ray independently interpreted by me as multifocal pneumonia of the left lung, no pleural effusions, pneumothorax noted -Patient is responsive to fluids, 500 cc bolus with tachycardia now downtrending to the 90s and blood pressure rising to the 130s. -Otherwise with patient's pneumonia as well as foot infection, will admit the patient for further septic workup. Differential diagnosis: Sepsis, hypovolemia, pneumonia, ACS, PE ER treatment provided: See below Diagnostics interpreted by me: ECG: As above Cardiac Monitoring: An order was placed for continuous cardiac monitoring. The monitor shows a rate of 122 with sinus rhythm. Laboratory studies: As stated above and show below. Imaging studies: See below. Critical Care Note: I have personally spent 35 minutes of critical care time in the direct management of this patient. This includes bedside care, interpretation of diagnostic studies, and testing, discussion with consultants, patient, and family members, and other required patient management activities. This 35 minutes is in excess of all separately billable procedures. Past Med/Surg History Problem List (Updated 07/13/23 @ 02:12 by Lilliana Albert MD) Multifocal pneumonia (Acute) Sepsis (Acute) Peripheral arterial disease with history of revascularization Ulcer of toe Diabetic foot ulcer Acute kidney injury superimposed on CKD 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 Encounter for pre-operative examination Heart failure with ejection fraction improved from reduced range to preserved range Acute HFrEF (heart failure with reduced ejection fraction) Follows with [facility] EF 50-55% per 05/2022 ECHO Anxiety (Acute) Anemia (Acute) hx GIB (gastrointestinal bleeding) (Acute) Chest pain (Acute) DVT prophylaxis DM (diabetes mellitus) S/P CABG x 2 ~2021, went to ER w/"anxiety," found to be in congestive heart failure, had more cardiac testing, sent for f/u w/[facility] cardio surgeon, done @[facility]; f/u dr. mckeon Dyslipidemia Cardiomyopathy CAD (coronary artery disease) s/p CABG x 2 vessel June 2021 Tobacco abuse smoke-12/day Arterial occlusion, lower extremity (Acute) Atherosclerosis of artery of left lower extremity s/p left leg angiogram procedure with [employer] of proximal vein bypass 05/27/23 s/p left leg femoral artery to posterior tibial artery reverse saphenous [place] [facility] [place]/p left SFA and popliteal stents Medical History History of anemia History of anxiety History of alcohol abuse started 1965, quit 1999 Hx of drug abuse started 1965, quit 1999 "used every drug known to man">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, stayed in for 13 years IV drug abuse hx-quit in 1981 History of hepatitis B hx IV drug use Hepatitis C virus has had since the late >no tx, "never had any trouble with it" Heart failure with mid-range ejection fraction Follows with [facility] EF 50-55% per 05/2022 ECHO Type 2 diabetes mellitus HTN (hypertension) Surgical History Hx of cardiac catheterization 06/2021 [facility] History of open reduction and internal fixation (ORIF) procedure rt elbow and lt wrist>hardware intact Hx of colonoscopy History of left knee surgery 1988-tibial plateau reconstruction History of eye surgery retina History of cataract extraction rt/lt Social History Smoking Status: Current every day smoker Tobacco Type: Cigarettes Cigarettes Per Day: 12 per day >>advised; Second Hand Exposure: Yes (hx); Do You Dip or Chew Tobacco: No; Hx Alcohol Use: No Hx Substance Use: Yes Last Used Substance Other:: quit 1999-stated "used every drug known to man" Substance Use Type Other:: IV drugs Preferred Language: Urdu Communication Ability: Effective Organ Grinder Required: No Beliefs That Will Affect Care: None Current Living Situation: Alone How many Children do You have: 1 Feels Safe at Home: Yes Assistive Devices: Glasses Allergies Allergies Allergy/AdvReac Type Severity Reaction Status Date / Time cat dander Allergy Intermediate CONGESTION Verified 07/12/23 02:04 Home Meds Home Medications Medication Instructions Recorded Confirmed atorvastatin 80 mg tablet (Lipitor) 80 mg PO QAM 05/15/19 07/12/23 clopidogrel 75 mg tablet 75 mg PO QAM 05/15/19 07/12/23 sacubitril 24 mg-valsartan 26 mg 1 tab PO BID 12/07/21 07/12/23 tablet (Entresto) empagliflozin 25 mg tablet 25 mg PO QAM 05/30/22 07/12/23 (Jardiance) amlodipine 5 mg tablet (Norvasc) 5 mg PO QAM 05/27/23 07/12/23 furosemide 20 mg tablet 20 mg PO QAM 05/27/23 07/12/23 gabapentin 100 mg capsule 100 mg PO DAILY 05/27/23 07/12/23 apixaban 5 mg tablet (Eliquis) 5 mg PO BID 06/01/23 07/12/23 insulin glargine 100 unit/mL (3 44 unit subcut QA 06/01/23 07/12/23 mL) subcutaneous pen (Lantus Solostar U-100 Insulin) sertraline 50 mg tablet (Zoloft) 75 mg PO M 06/01/23 07/12/23 spironolactone 25 mg tablet 25 mg PO [facility] 06/16/23 07/12/23 (Aldactone) metformin 1,000 mg tablet 1,000 mg PO BID 07/12/23 07/12/23 Previous Rx's Medication Instructions Recorded carvedilol 12.5 mg tablet 12.5 mg PO BID #180 tabs 08/17/22 oxycodone-acetaminophen 5 mg-325 1 tab PO Q8H PRN pain #20 tabs 06/16/23 mg tablet (Percocet) Results & Data (ED) Vital Signs Vital Signs - 24 hr 07/12/23 02:42 07/12/23 03:00 Pulse Rate 98 H 97 H Respiratory Rate 24 18 Blood Pressure 110/68 131/72 Blood Pressure Mean 79 79 Pulse Oximetry 97 97 Oxygen Delivery Method Nasal Cannula Nasal Cannula Oxygen Flow Rate 2 2 Laboratory Data 07/12/23 23:05 07/12/23 23:05 Lab Results 07/12/23 07/12/23 07/12/23 Range/Units 00:16 00:24 00:26 WBC 8.71 (4.8-10.8) K/ul RBC 5.31 (4.70-6.10) M/uL Hgb 13.7 L (14.0-18.0) g/dl POC Hgb 15.0 (14.0-18.0) g/dl Hct 42.1 (42.0-52.0) % POC Hct 44 (42-52) % MCV 79.3 L (80.0-100.0) fL MCH 25.8 (25.0-34.0) pg MCHC 32.5 (32.0-36.0) g/dL RDW Std Deviation 41.5 (36.4-46.3) fL RDW Coeff of Josh 14.5 (11.5-14.5) % Plt Count 152 (130-400) K/uL MPV 11.8 (9.4-12.4) fL Immature Gran % (Auto) 1.4 % Neut % (Auto) 91.4 % Lymph % (Auto) 3.3 % [place] % (Auto) 2.6 % Eos % (Auto) 0.6 % Baso % (Auto) 0.7 % Neut # (Auto) 7.96 H (1.40-6.50) K/uL Lymph # (Auto) 0.29 L (1.20-3.40) K/uL [place] # (Auto) 0.23 (0.11-0.59) K/uL Eos # (Auto) 0.05 (0.00-0.50) K/uL Baso # (Auto) 0.06 (0.00-0.20) K/uL Immature Gran # (Auto) 0.12 (0.01-0.20) K/uL Dohle Bodies 1+ Spherocytes 1+ Tear Drop Cells 1+ PT 11.7 (9.0-12.0) Seconds INR 1.1 (0.9-1.1) POC Sodium 132 L (135-144) mmol/L Sodium 130 L (136-145) mmol/L POC Potassium 4.0 (3.3-5.0) mmol/L Potassium 3.9 (3.5-5.1) mmol/L POC Chloride 102 (101-112) mmol/L Chloride 97 L (98-107) mmol/L Carbon Dioxide 16 L (21-32) mmol/L POC Total CO2 17 L (24-31) mmol/L Anion Gap 17 H (3-11) POC Anion Gap 18.0 (16-25) mmol/L POC BUN 43 H (7-18) mg/dl BUN 49 H (6-23) mg/dl Creatinine 2.48 H (0.6-1.4) mg/dl POC Creatinine 2.7 H (0.6-1.3) mg/dl Est Cr Clr Drug Dosing 31.8 ml/min Est GFR ( Amer) 29.1 ml/min Est GFR (Non-Af Amer) 25.1 ml/min BUN/Creatinine Ratio 19.8 (10-20) Glucose 190 H (70-99(Fasting)) mg/dl POC Glucose 178 H (70-99) mg/dl POC Glucose (other) 194 H (70-99) mg/dl Estimat Average Glucose 301 mg/dl Hemoglobin A1c 12.1 H (4.5-5.6) % Lactate 5.7 H* (0.4-2.0) mmol/L Calcium 9.5 (8.6-10.3) mg/dl POC Ioniz Calcium Winsome 1.13 (1.12-1.32) mmol/l Total Bilirubin 0.9 (0.2-1.0) mg/dl AST 33 (13-39) U/L ALT 20 (7-52) U/L Alkaline Phosphatase 156 H (34-104) U/L Troponin I High Sens 39.4 H (0-20) pg/ml B-Natriuretic Peptide 457 H (0-100) pg/ml Total Protein 8.0 (6.0-8.3) gm/dl Albumin 3.3 L (3.4-5.0) gm/dl Globulin 4.7 H (2.5-4.0) gm/dl Albumin/Globulin Ratio 0.7 L (0.9-2) TSH 2.419 (0.300-4.500) uIu/ml Urine Color Urine Appearance (Clear) Urine pH (4.5-7.5) Ur Specific Miranda (1.000-1.030) Urine Protein (Negative) Urine Glucose (UA) (Negative) Urine Ketones (Negative) Urine Blood (Negative) Urine Nitrite (Negative) Urine Bilirubin (Negative) Urine Urobilinogen (Negative) Ur Leukocyte Esterase (Negative) Urine WBC (Auto) (0-5) /hpf Urine RBC (Auto) (0-2) /hpf U Hyaline Cast (Auto) (0-2) /lpf U Epithel Cells (Auto) (0-2) /hpf Urine Bacteria (Auto) (None Seen) Granular Casts (None Prsent) /lpf Adenovirus (PCR) (NotDetected) B. pertussis DNA (PCR) (NotDetected) B.parapertussis DNA PCR (NotDetected) C. pneumoniae DNA (PCR) (NotDetected) Coronavirus OC43 (PCR) (NotDetected) Coronavirus HKU1 (PCR) (NotDetected) Coronavirus 229E (PCR) (NotDetected) SARS-CoV-2 (PCR) (NotDetected) Coronavirus NL63 (PCR) (NotDetected) Human Metapneumovir PCR (NotDetected) Influenza Type A (PCR) (NotDetected) Influenza Type B (PCR) (NotDetected) M. pneumoniae (PCR) (NotDetected) Parainfluenza 1 (PCR) (NotDetected) Parainfluenza 2 (PCR) (NotDetected) Parainfluenza 3 (PCR) (NotDetected) Parainfluenza 4 (PCR) (NotDetected) RSV (PCR) (NotDetected) Entero/Rhino (PCR) (NotDetected) Staphylococcus sp PCR DETECTED A (NotDetected) Staph aureus (PCR) DETECTED A (NotDetected) mecA/C & MREJ Resist Gene MRSA DETECTED A* (NotDetected) Bld Cult ID Panel PCR See PCR Comment (NotDetected) 07/12/23 07/12/23 07/12/23 Range/Units 00:38 00:57 02:34 WBC (4.8-10.8) K/ul RBC (4.70-6.10) M/uL Hgb (14.0-18.0) g/dl POC Hgb (14.0-18.0) g/dl Hct (42.0-52.0) % POC Hct (42-52) % MCV (80.0-100.0) fL MCH (25.0-34.0) pg MCHC (32.0-36.0) g/dL RDW Std Deviation (36.4-46.3) fL RDW Coeff of Josh (11.5-14.5) % Plt Count (130-400) K/uL MPV (9.4-12.4) fL Immature Gran % (Auto) % Neut % (Auto) % Lymph % (Auto) % [place] % (Auto) % Eos % (Auto) % Baso % (Auto) % Neut # (Auto) (1.40-6.50) K/uL Lymph # (Auto) (1.20-3.40) K/uL [place] # (Auto) (0.11-0.59) K/uL Eos # (Auto) (0.00-0.50) K/uL Baso # (Auto) (0.00-0.20) K/uL Immature Gran # (Auto) (0.01-0.20) K/uL Dohle Bodies Spherocytes Tear Drop Cells PT (9.0-12.0) Seconds INR (0.9-1.1) POC Sodium (135-144) mmol/L Sodium (136-145) mmol/L POC Potassium (3.3-5.0) mmol/L Potassium (3.5-5.1) mmol/L POC Chloride (101-112) mmol/L Chloride (98-107) mmol/L Carbon Dioxide (21-32) mmol/L POC Total CO2 (24-31) mmol/L Anion Gap (3-11) POC Anion Gap (16-25) mmol/L POC BUN (7-18) mg/dl BUN (6-23) mg/dl Creatinine (0.6-1.4) mg/dl POC Creatinine (0.6-1.3) mg/dl Est Cr Clr Drug Dosing ml/min Est GFR ( Amer) ml/min Est GFR (Non-Af Amer) ml/min BUN/Creatinine Ratio (10-20) Glucose (70-99(Fasting)) mg/dl POC Glucose (70-99) mg/dl POC Glucose (other) (70-99) mg/dl Estimat Average Glucose mg/dl Hemoglobin A1c (4.5-5.6) % Lactate 4.3 H* (0.4-2.0) mmol/L Calcium (8.6-10.3) mg/dl POC Ioniz Calcium Winsome (1.12-1.32) mmol/l Total Bilirubin (0.2-1.0) mg/dl AST (13-39) U/L ALT (7-52) U/L Alkaline Phosphatase (34-104) U/L Troponin I High Sens 37.4 H (0-20) pg/ml B-Natriuretic Peptide (0-100) pg/ml Total Protein (6.0-8.3) gm/dl Albumin (3.4-5.0) gm/dl Globulin (2.5-4.0) gm/dl Albumin/Globulin Ratio (0.9-2) TSH (0.300-4.500) uIu/ml Urine Color Dark Yellow Urine Appearance Cloudy A (Clear) Urine pH 5.0 (4.5-7.5) Ur Specific Miranda 1.030 (1.000-1.030) Urine Protein 1+ H (Negative) Urine Glucose (UA) 3+ H (Negative) Urine Ketones Trace H (Negative) Urine Blood Negative (Negative) Urine Nitrite Negative (Negative) Urine Bilirubin Negative (Negative) Urine Urobilinogen Negative (Negative) Ur Leukocyte Esterase Negative (Negative) Urine WBC (Auto) 0-5 (0-5) /hpf Urine RBC (Auto) 0-2 (0-2) /hpf U Hyaline Cast (Auto) 11-20 H (0-2) /lpf U Epithel Cells (Auto) 6-10 H (0-2) /hpf Urine Bacteria (Auto) None Seen (None Seen) Granular Casts Present A (None Prsent) /lpf Adenovirus (PCR) Not Detected (NotDetected) B. pertussis DNA (PCR) Not Detected (NotDetected) B.parapertussis DNA PCR Not Detected (NotDetected) C. pneumoniae DNA (PCR) Not Detected (NotDetected) Coronavirus OC43 (PCR) Not Detected (NotDetected) Coronavirus HKU1 (PCR) Not Detected (NotDetected) Coronavirus 229E (PCR) Not Detected (NotDetected) SARS-CoV-2 (PCR) Not Detected (NotDetected) Coronavirus NL63 (PCR) Not Detected (NotDetected) Human Metapneumovir PCR Not Detected (NotDetected) Influenza Type A (PCR) Not Detected (NotDetected) Influenza Type B (PCR) Not Detected (NotDetected) M. pneumoniae (PCR) Not Detected (NotDetected) Parainfluenza 1 (PCR) Not Detected (NotDetected) Parainfluenza 2 (PCR) Not Detected (NotDetected) Parainfluenza 3 (PCR) Not Detected (NotDetected) Parainfluenza 4 (PCR) Not Detected (NotDetected) RSV (PCR) Not Detected (NotDetected) Entero/Rhino (PCR) Not Detected (NotDetected) Staphylococcus sp PCR (NotDetected) Staph aureus (PCR) (NotDetected) mecA/C & MREJ Resist Gene (NotDetected) Bld Cult ID Panel PCR (NotDetected) Administered Medications Daptomycin 500 mg/ Syringe 10 mls @ 5 mls/min IV Q24H [facility]; Protocol Stop: 07/19/23 02:59 Last Admin: 07/12/23 03:30 Dose: 5 mls/min Documented By: PRESLEY Heparin Sodium/Dextrose (Heparin Sodium/Dextrose) 25,000 units in 500 mls @ 20 mls/hr IV .Q24H [facility]; Protocol Stop: 08/11/23 03:14 Last Titration: 07/12/23 15:14 Dose: 1,000 units/hr, 20 mls/hr Documented By: PK Co-signed By: CY Titration: 07/12/23 14:51 Dose: 1,000 units/hr, 20 mls/hr Documented By: PK Co-signed By: SHAKILA Titration: 07/12/23 07:12 Dose: 1,000 units/hr, 20 mls/hr Documented By: GH Co-signed By: PK Admin: 07/12/23 04:05 Dose: 1,000 units/hr, 20 mls/hr Documented By: PRESLEY Co-signed By: BREANNE Pantoprazole Sodium 40 mg/ (Syringe) 10 mls @ 5 mls/min IV DAILY@1100 [facility] Stop: 08/11/23 10:59 Last Admin: 07/12/23 11:54 Dose: 5 mls/min Documented By: ABDULLAHI Acetaminophen (Ofirmev) 1,000 mg in 100 mls @ 400 mls/hr IV Q8H PRN; Protocol PRN Reason: pain or fever Stop: 07/15/23 03:14 Last Infusion: 07/12/23 04:08 Dose: Infused Documented By: Admin: 07/12/23 03:30 Dose: 400 mls/hr Documented By: PRESLEY Magnesium Sulfate/Dextrose (Magnesium Sulfate / D5w) 1 gm in 100 mls @ 50 mls/hr IV Q2H [facility] Stop: 07/13/23 04:14 Last Admin: 07/13/23 00:12 Dose: 50 mls/hr Documented By: ARIANA Amiodarone HCl/Dextrose (Nexterone / D5w) 360 mg in 200 mls @ 33.333 mls/hr IV ONE ONE Stop: 07/13/23 07:25 Last Admin: 07/13/23 01:47 Dose: 1 mg/min, 33.3 mls/hr Documented By: ARIANA Co-signed By: RL Insulin Aspart (Insulin Aspart Per Unit Charge) 0 units SC ACHS [facility] Stop: 08/11/23 05:59 Last Admin: 07/12/23 20:24 Dose: 1 units Documented By: ARIANA Co-signed By: ZEV Admin: 07/12/23 17:27 Dose: 4 units Documented By: CY Co-signed By: NAJMA Admin: 07/12/23 15:01 Dose: Not Given Documented By: ABDULLAHI Insulin Glargine (Lantus Per Unit Charge) 20 units SQ QAM [facility] Stop: 08/11/23 08:59 Last Admin: 07/12/23 09:27 Dose: 20 units Documented By: ABDULLAHI Co-signed By: SHAKILA Morphine Sulfate (Morphine Sulfate 4 Mg/Ml 1 Ml Carp\\Vial) 4 mg IV Q3H PRN PRN Reason: Mod-Sev Pain (Scale 4-10) Stop: 07/26/23 02:57 Last Admin: 07/12/23 15:45 Dose: 4 mg Documented By: Admin: 07/12/23 09:24 Dose: 4 mg Documented By: Admin: 07/12/23 03:12 Dose: 4 mg Documented By: PRESLEY Discontinued Medications Heparin Sodium/Dextrose (Heparin Iv Adult Wt-Based Low-Dose *No* Initial Bolus Protocol) 1 each IV ONE STA; Protocol Stop: 07/12/23 02:55 Last Admin: 07/12/23 04:04 Dose: Not Given Documented By: PRESLEY Vancomycin HCl 2,500 mg/ (Sodium Chloride) 550 mls @ 200 mls/hr IV NOW ONE Stop: 07/12/23 03:24 Last Infusion: 07/12/23 02:44 Dose: Infused Documented By: Admin: 07/12/23 01:20 Dose: 200 mls/hr Documented By: PRESLEY Cefepime HCl (Maxipime) 2,000 mg in 20 mls @ 5 mls/min IV NOW STA; Protocol Stop: 07/12/23 00:43 Last Admin: 07/12/23 00:46 Dose: 5 mls/min Documented By: PRESLEY Sodium Chloride (Nss) 500 mls @ 999 mls/hr IV .Q31M ONE Stop: 07/12/23 02:04 Last Infusion: 07/12/23 01:00 Dose: Infused Documented By: Admin: 07/12/23 00:30 Dose: 999 mls/hr Documented By: PRESLEY Sodium Chloride (Nss) 1,000 mls @ 80 mls/hr IV .[id number] [facility] Stop: 07/12/23 15:29 Last Infusion: 07/12/23 15:30 Dose: Infused Documented By: Admin: 07/12/23 03:31 Dose: 80 mls/hr Documented By: PRESLEY Sodium Chloride (Nss) 500 mls @ 999 mls/hr IV .Q31M ONE Stop: 07/12/23 23:12 Last Infusion: 07/12/23 23:26 Dose: Infused Documented By: Admin: 07/12/23 22:48 Dose: 999 mls/hr Documented By: ARIANA Digoxin 250 mcg/ Syringe 10 mls @ 2 mls/min IV NOW STA Stop: 07/13/23 00:24 Last Admin: 07/13/23 00:41 Dose: 2 mls/min Documented By: ARIANA Amiodarone HCl/Dextrose (Nexterone / D5w) 150 mg in 100 mls @ 600 mls/hr IV NOW STA Stop: 07/13/23 01:25 Last Infusion: 07/13/23 01:46 Dose: Infused Documented By: ARIANA Co-signed By: RL Admin: 07/13/23 01:36 Dose: 600 mls/hr Documented By: ARIANA Co-signed By: ZEV Insulin Aspart (Insulin Aspart Per Unit Charge) 0 units SC Q6 [facility] Stop: 08/11/23 05:59 Last Admin: 07/12/23 06:21 Dose: 3 units Documented By: ARIANA Co-signed By: EDITH Discharge Plan Visit Data Chief Complaint: Weakness Stated Complaint: WEAKNESS, HYPOTENSION, TACHYCARDIA ED Provider: Lilliana Albert Discharge Problem: Sepsis, Multifocal pneumonia Patient Disposition: Admitted As Inpatient Discharge Instructions Interventions: ED Discharge Assessment Last Done: 07/12/23 06:46
[2023-07-12 02:02] LABS: Adenovirus PCR Not Detected (NotDetected); Bordetella parapertussis PCR Not Detected (NotDetected); Bordetella pertussis PCR Not Detected (NotDetected); Chlamydia pneumoniae PCR Not Detected (NotDetected); Coronavirus 229E PCR Not Detected (NotDetected); Coronavirus CoV-2 (COVID19)PCR Not Detected (NotDetected); Coronavirus HKU1 PCR Not Detected (NotDetected); Coronavirus NL63 PCR Not Detected (NotDetected); Coronavirus OC43PCR Not Detected (NotDetected); Human Metapneumovirus PCR Not Detected (NotDetected); Influenza A PCR Not Detected (NotDetected); Influenza B PCR Not Detected (NotDetected); Mycoplasma pneumoniae PCR Not Detected (NotDetected); Parainfluenza Virus 1 PCR Not Detected (NotDetected); Parainfluenza Virus 2 PCR Not Detected (NotDetected); Parainfluenza Virus 3 PCR Not Detected (NotDetected); Parainfluenza Virus 4 PCR Not Detected (NotDetected); Respiratory Syncytial VirusPCR Not Detected (NotDetected); Rhinovirus/Enterovirus PCR Not Detected (NotDetected)
[2023-07-12] MEDS ORDERED: ACETAMINOPHEN 1000 MG/100 ML IV IV PRN (02:58)
--- NOTE | 2023-07-12 03:04 | History & Physical Report ---
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: (3) Atherosclerosis of artery of left lower extremity: (4) Acute kidney injury superimposed on CKD: (5) Heart failure with ejection fraction improved from reduced range to preserved range: (6) Anxiety: (7) DM (diabetes mellitus): (8) CAD (coronary artery disease): (9) Cardiomyopathy: (10) S/P CABG x 2: (11) Tobacco abuse: Plan Sepsis due to diabetic left foot ulcer/gangrene/status post recent vascular procedure for PAD- Lowest blood pressure recorded was 80/53, did respond to 500 cc normal saline bolus to 119/76 Daptomycin IV and cefepime IV Initial lactate 5.7, with follow-up 4.[address] Ambriz Hold apixaban Place on heparin drip Temporarily hold clopidogrel If no immediate procedure to be performed, patient can resume outpatient dosings of apixaban clopidogrel Acute kidney injury superimposed on CKD- Creatinine 2.48, with base 1.27- Stop spironolactone, Entresto, Jardiance and furosemide Status post 500 mill bolus normal saline from the ED NSS at 80 mL/h x 1 L Repeat laboratories every morning Diabetes mellitus- Patient will initially be n.p.o., however, if no procedure to be performed, would resume diabetic diet Reduce glargine from 44 to 20 units subcu every morning Hold metformin and Jardiance Placed on Accu-Cheks with NovoLog SSI CAD/hypertension/cardiomyopathy/status post CABG x 2- Due to episode of hypotension, will hold amlodipine, carvedilol, furosemide, Entresto and spironolactone until blood pressure has recovered, and pending upon n.p.o. status as noted above Initial troponin 39.4, with follow-up 37.4 History of Present Illness Chief Complaint: The patient presents to the emergency department with worsening generalized weakness over the past few days, and worsening left great toe infection Primary Care Provider: Elmer Fraire MD The patient is a 72-year-old male with a past medical history including gangrene due to PAD, heart failure with EF improved from reduced to preserved range, anxiety, GI bleed, diabetes mellitus, cardiomyopathy, CAD, tobacco abuse and dyslipidemia. Patient presents to the emergency department due to family concerns regarding worsening generalized weakness, and worsening of his left great toe infection. He reports having a outpatient appointment with Dr. Ambriz in 4 days, to discuss further treatment of his left great toe Allergies Allergy/AdvReac Type Severity Reaction Status Date / Time cat dander Allergy Intermediate CONGESTION Verified 07/12/23 02:04 Home Medications Medication Instructions Recorded Confirmed Type atorvastatin 80 mg tablet (Lipitor) 80 mg PO QAM 05/15/19 07/12/23 History clopidogrel 75 mg tablet 75 mg PO QAM 05/15/19 07/12/23 History sacubitril 24 mg-valsartan 26 mg 1 tab PO BID 12/07/21 07/12/23 History tablet (Entresto) empagliflozin 25 mg tablet 25 mg PO QAM 05/30/22 07/12/23 History (Jardiance) carvedilol 12.5 mg tablet 12.5 mg PO BID #180 tabs 08/17/22 07/12/23 Rx amlodipine 5 mg tablet (Norvasc) 5 mg PO QAM 05/27/23 07/12/23 History furosemide 20 mg tablet 20 mg PO QAM 05/27/23 07/12/23 History gabapentin 100 mg capsule 100 mg PO DAILY 05/27/23 07/12/23 History apixaban 5 mg tablet (Eliquis) 5 mg PO BID 06/01/23 07/12/23 History insulin glargine 100 unit/mL (3 44 unit subcut QAM 06/01/23 07/12/23 History mL) subcutaneous pen (Lantus Solostar U-100 Insulin) sertraline 50 mg tablet (Zoloft) 75 mg PO QAM 06/01/23 07/12/23 History oxycodone-acetaminophen 5 mg-325 1 tab PO Q8H PRN pain #20 tabs 06/16/23 07/12/23 Rx mg tablet (Percocet) spironolactone 25 mg tablet 25 mg PO QAM 06/16/23 07/12/23 History (Aldactone) metformin 1,000 mg tablet 1,000 mg PO BID 07/12/23 07/12/23 History Past Med/Surg History Problem List (Updated 07/12/23 @ 05:51 by Darío Atkins MD) Diabetic foot ulcer Acute kidney injury superimposed on CKD 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 Encounter for pre-operative examination Heart failure with ejection fraction improved from reduced range to preserved range Acute HFrEF (heart failure with reduced ejection fraction) Follows with [facility] EF 50-55% per 05/2022 ECHO Anxiety (Acute) Anemia (Acute) hx GIB (gastrointestinal bleeding) (Acute) Chest pain (Acute) DVT prophylaxis DM (diabetes mellitus) S/P CABG x 2 ~2021, went to ER w/"anxiety," found to be in congestive heart failure, had more cardiac testing, sent for f/u w/[facility] cardio surgeon, done @[facility]; f/u dr. mckeon Dyslipidemia Cardiomyopathy CAD (coronary artery disease) s/p CABG x 2 vessel June 2021 Tobacco abuse smoke-12/day Arterial occlusion, lower extremity (Acute) Atherosclerosis of artery of left lower extremity s/p left leg angiogram procedure with [employer] PLANT ENGINEER of proximal vein bypass 05/27/23 s/p left leg femoral artery [place] posterior tibial artery reverse saphenous [place] [facility] [place]p left SFA and popliteal stents Medical History (Updated 07/12/23 @ 05:51 by Darío Atkins MD) History of anemia History of anxiety History of alcohol abuse started 1965, quit 1999 Hx of drug abuse started 1965, quit 1999 "used every drug known to man">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, stayed in for 13 years IV drug abuse hx-quit in 1981 History of hepatitis B hx IV drug use Hepatitis C virus has had since the late 1979's>no tx, "never had any trouble with it" Heart failure with mid-range ejection fraction Follows with [facility] EF 50-55% per 05/2022 ECHO Type 2 diabetes mellitus HTN (hypertension) Surgical History Hx of cardiac catheterization 06/2021 [facility] History of open reduction and internal fixation (ORIF) procedure rt elbow and lt wrist>hardware intact Hx of colonoscopy History of left knee surgery 1988-tibial plateau reconstruction History of eye surgery retina History of cataract extraction rt/lt Social History Smoking Status: Current every day smoker Tobacco Type: Cigarettes Cigarettes Per Day: 12 per day >>advised; Second Hand Exposure: Yes (hx); Do You Dip or Chew Tobacco: No; Hx Alcohol Use: No Hx Substance Use: Yes Last Used Substance Other:: quit 1999-stated "used every drug known to man" Substance Use Type Other:: IV drugs Preferred Language: Lithuanian Communication Ability: Effective Electronic Components Assembler Required: No Beliefs That Will Affect Care: None Current Living Situation: Alone How many Children do You have: 1 Feels Safe at Home: Yes Assistive Devices: Glasses Review of Systems Review of Systems: The patient denies chest pain, palpitations, shortness of breath, dyspnea on exertion, cough, lower extremity swelling, sore throat, fevers, chills, sweats, nausea, vomiting, diarrhea , constipation, abdominal pain, pelvic pain, blood in urine or stool, dysuria, urinary frequency or urgency, imbalance, focal weakness, numbness or tingling in arms, generalized arthralgias or myalgias, back or neck pain, or night sweats. The review of systems is otherwise negative other than for that already noted above, and at least 10 systems have been reviewed. Physical Exam Physical Exam: The patient is awake, alert and oriented 3, normocephalic and atraumatic, lying in bed and in no acute distress. HEENT--PERRL, EOMI, mucous membranes and oropharynx dry. Neck--supple. No JVD. No bruits. Thyroid normal, trachea midline, no adenopathy. Heart--normal S1 and S2. No murmurs, rubs or gallops. Lungs--clear bilaterally, no respiratory distress, no accessory muscle use. Abdomen--normal bowel sounds and soft. Nontender. Nondistended. Mildly obese Extremities--No edema. Dermatologic--left great toe ulceration with erythema Neurologic--cranial nerves II through XII grossly intact. Rheumatologic--normal range of motion. Psychiatric--normal affect. Results & Data Results & Data Vital Signs (Past 12 Hours) Vital Signs Temp Pulse Pulse Resp BP BP Pulse Ox 07/12/23 01:40 95 H 25 H 130/62 98 07/12/23 01:15 100 H 19 128/75 99 07/12/23 01:00 110 H 23 116/70 96 07/12/23 00:50 111 H 25 H 119/76 99 07/12/23 00:38 119 H 26 H 80/53 L 98 07/12/23 00:34 118 H 28 H 88/51 L 97 07/12/23 00:30 121 H 24 98 07/12/23 00:27 121 H 21 95/67 L 98 07/12/23 00:27 95 07/12/23 00:20 137 H 28 H 95/67 L 94 07/12/23 00:13 141 H 07/12/23 00:13 36.6 C 138 H 26 H 95/67 L 95 O2 Del Method O2 Flow Rate 07/12/23 01:40 Nasal Cannula 2 07/12/23 01:15 Nasal Cannula 2 07/12/23 01:00 Nasal Cannula 2 07/12/23 00:50 Nasal Cannula 2 07/12/23 00:38 Nasal Cannula 2 07/12/23 00:34 Nasal Cannula 2 07/12/23 00:30 Nasal Cannula 2 07/12/23 00:27 Nasal Cannula 2 07/12/23 00:27 Room Air 0 07/12/23 00:20 07/12/23 00:13 07/12/23 00:13 Room Air Laboratory Results Laboratory Results WBC 8.71 K/ul (4.8-10.8) 07/12/23 00:24 RBC 5.31 M/uL (4.70-6.10) 07/12/23 00:24 Hgb 13.7 g/dl (14.0-18.0) L 07/12/23 00:24 POC Hgb 15.0 g/dl (14.0-18.0) 07/12/23 00:26 Hct 42.1 % (42.0-52.0) 07/12/23 00:24 POC Hct 44 % (42-52) 07/12/23 00:26 MCV 79.3 fL (80.0-100.0) L 07/12/23 00:24 MCH 25.8 pg (25.0-34.0) 07/12/23 00:24 MCHC 32.5 g/dL (32.0-36.0) 07/12/23 00:24 RDW Std Deviation 41.5 fL (36.4-46.3) 07/12/23 00:24 RDW Coeff of Josh 14.5 % (11.5-14.5) 07/12/23 00:24 Plt Count 152 K/uL (130-400) 07/12/23 00:24 MPV 11.8 fL (9.4-12.4) 07/12/23 00:24 Immature Gran % (Auto) 1.4 % 07/12/23 00:24 Neut % (Auto) 91.4 % 07/12/23 00:24 Lymph % (Auto) 3.3 % 07/12/23 00:24 [place] % (Auto) 2.6 % 07/12/23 00:24 Eos % (Auto) 0.6 % 07/12/23 00:24 Baso % (Auto) 0.7 % 07/12/23 00:24 Neut # (Auto) 7.96 K/uL (1.40-6.50) H 07/12/23 00:24 Lymph # (Auto) 0.29 K/uL (1.20-3.40) L 07/12/23 00:24 [place] # (Auto) 0.23 K/uL (0.11-0.59) 07/12/23 00:24 Eos # (Auto) 0.05 K/uL (0.00-0.50) 07/12/23 00:24 Baso # (Auto) 0.06 K/uL (0.00-0.20) 07/12/23 00:24 Immature Gran # (Auto) 0.12 K/uL (0.01-0.20) 07/12/23 00:24 Dohle Bodies 1+ 07/12/23 00:24 Spherocytes 1+ 07/12/23 00:24 Tear Drop Cells 1+ 07/12/23 00:24 PT 11.7 Seconds (9.0-12.0) 07/12/23 00:24 INR 1.1 (0.9-1.1) 07/12/23 00:24 POC Sodium 132 mmol/L (135-144) L 07/12/23 00:26 Sodium 130 mmol/L (136-145) L 07/12/23 00:24 POC Potassium 4.0 mmol/L (3.3-5.0) 07/12/23 00:26 Potassium 3.9 mmol/L (3.5-5.1) 07/12/23 00:24 POC Chloride 102 mmol/L (101-112) 07/12/23 00:26 Chloride 97 mmol/L (98-107) L 07/12/23 00:24 Carbon Dioxide 16 mmol/L (21-32) L 07/12/23 00:24 POC Total CO2 17 mmol/L (24-31) L 07/12/23 00:26 Anion Gap 17 (3-11) H 07/12/23 00:24 POC Anion Gap 18.0 mmol/L (16-25) 07/12/23 00:26 POC BUN 43 mg/dl (7-18) H 07/12/23 00:26 BUN 49 mg/dl (6-23) H 07/12/23 00:24 Creatinine 2.48 mg/dl (0.6-1.4) H 07/12/23 00:24 POC Creatinine 2.7 mg/dl (0.6-1.3) H 07/12/23 00:26 Est Cr Clr Drug Dosing 31.8 ml/min 07/12/23 00:24 Est GFR ( Amer) 29.1 ml/min 07/12/23 00:24 Est GFR (Non-Af Amer) 25.1 ml/min 07/12/23 00:24 BUN/Creatinine Ratio 19.8 (10-20) 07/12/23 00:24 Glucose 190 mg/dl (70-99(Fasting)) H 07/12/23 00:24 POC Glucose 178 mg/dl (70-99) H 07/12/23 00:16 POC Glucose (other) 194 mg/dl (70-99) H 07/12/23 00:26 Lactate 4.3 mmol/L (0.4-2.0) H* 07/12/23 02:34 Calcium 9.5 mg/dl (8.6-10.3) 07/12/23 00:24 POC Ioniz Calcium Winsome 1.13 mmol/l (1.12-1.32) 07/12/23 00:26 Total Bilirubin 0.9 mg/dl (0.2-1.0) 07/12/23 00:24 AST 33 U/L (13-39) 07/12/23 00:24 ALT 20 U/L (7-52) 07/12/23 00:24 Alkaline Phosphatase 156 U/L (34-104) H 07/12/23 00:24 Troponin I High Sens 37.4 pg/ml (0-20) H 07/12/23 02:34 B-Natriuretic Peptide 457 pg/ml (0-100) H 07/12/23 00:24 Total Protein 8.0 gm/dl (6.0-8.3) 07/12/23 00:24 Albumin 3.3 gm/dl (3.4-5.0) L 07/12/23 00:24 Globulin 4.7 gm/dl (2.5-4.0) H 07/12/23 00:24 Albumin/Globulin Ratio 0.7 (0.9-2) L 07/12/23 00:24 TSH 2.419 uIu/ml (0.300-4.500) 07/12/23 00:24 Urine Color Dark Yellow 07/12/23 00:57 Urine Appearance Cloudy (Clear) A 07/12/23 00:57 Urine pH 5.0 (4.5-7.5) 07/12/23 00:57 Ur Specific [place] 1.030 (1.000-1.030) 07/12/23 00:57 Urine Protein 1+ (Negative) H 07/12/23 00:57 Urine Glucose (UA) 3+ (Negative) H 07/12/23 00:57 Urine Ketones Trace (Negative) H 07/12/23 00:57 Urine Blood Negative (Negative) 07/12/23 00:57 Urine Nitrite Negative (Negative) 07/12/23 00:57 Urine Bilirubin Negative (Negative) 07/12/23 00:57 Urine Urobilinogen Negative (Negative) 07/12/23 00:57 Ur Leukocyte Esterase Negative (Negative) 07/12/23 00:57 Urine WBC (Auto) 0-5 /hpf (0-5) 07/12/23 00:57 Urine RBC (Auto) 0-2 /hpf (0-2) 07/12/23 00:57 U Hyaline Cast (Auto) 11-20 /lpf (0-2) H 07/12/23 00:57 U Epithel Cells (Auto) 6-10 /hpf (0-2) H 07/12/23 00:57 Urine Bacteria (Auto) None Seen (None Seen) 07/12/23 00:57 Granular Casts Present /lpf (None Prsent) A 07/12/23 00:57 Adenovirus (PCR) Not Detected (NotDetected) 07/12/23 00:38 B. pertussis DNA (PCR) Not Detected (NotDetected) 07/12/23 00:38 B.parapertussis DNA PCR Not Detected (NotDetected) 07/12/23 00:38 C. pneumoniae DNA (PCR) Not Detected (NotDetected) 07/12/23 00:38 Coronavirus OC43 (PCR) Not Detected (NotDetected) 07/12/23 00:38 Coronavirus HKU1 (PCR) Not Detected (NotDetected) 07/12/23 00:38 Coronavirus 229E (PCR) Not Detected (NotDetected) 07/12/23 00:38 SARS-CoV-2 (PCR) Not Detected (NotDetected) 07/12/23 00:38 Coronavirus NL63 (PCR) Not Detected (NotDetected) 07/12/23 00:38 Human Metapneumovir PCR Not Detected (NotDetected) 07/12/23 00:38 Influenza Type A (PCR) Not Detected (NotDetected) 07/12/23 00:38 Influenza Type B (PCR) Not Detected (NotDetected) 07/12/23 00:38 M. pneumoniae (PCR) Not Detected (NotDetected) 07/12/23 00:38 Parainfluenza 1 (PCR) Not Detected (NotDetected) 07/12/23 00:38 Parainfluenza 2 (PCR) Not Detected (NotDetected) 07/12/23 00:38 Parainfluenza 3 (PCR) Not Detected (NotDetected) 07/12/23 00:38 Parainfluenza 4 (PCR) Not Detected (NotDetected) 07/12/23 00:38 RSV (PCR) Not Detected (NotDetected) 07/12/23 00:38 Entero/Rhino (PCR) Not Detected (NotDetected) 07/12/23 00:38 Code Status & VTE Plan Code Status Full code VTE Prophylaxis Plan VTE Prophylaxis will be ordered: Yes PG Care Time/CCT Total # of Minutes Spent Total Time Spent with Patient: Total time spent is greater than 50% in coordination of care (as documented) at patient's floor/unit and/or counseling patient: Coding Level of Care Code 05375 INT INP/OBS CARE MIN Diagnoses Diabetic foot ulcer E11.621; L97.509 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 I73.9 Atherosclerosis of artery of left lower extremity I70.202 Acute kidney injury superimposed on CKD N17.9; N18.9 Heart failure with ejection fraction improved from reduced range to preserved range I50.32 Anxiety F41.9 DM (diabetes mellitus) E11.9 CAD (coronary artery disease) I25.10 Cardiomyopathy I42.9 S/P CABG x 2 Z95.1 Tobacco abuse Z72.0
[2023-07-12] MEDS: MoRPHine SULFATE 4 MG/ML 1 ML CARP\\VIAL IV PRN (03:12)
[2023-07-12] MEDS ORDERED: CARBOHYDRATES FOR HYPOGLYCEMIA PO PRN (03:29)
[2023-07-12] MEDS ORDERED: DEXTROSE 50% 50 ML SYRINGE IV PRN (03:29)
[2023-07-12] MEDS ORDERED: GLUCOSE 40% GEL 15 GM TUBE PO PRN (03:29)
[2023-07-12] MEDS ORDERED: ONDANSETRON INJ 2 MG/ML 2 ML VIAL IV PRN (03:29)
[2023-07-12] MEDS ORDERED: GLUCAGON FOR INJ 1 MG VIAL SQ PRN (03:29)
[2023-07-12] MEDS ORDERED: GLUCOSE 10 TAB/TUBE PO PRN (03:29)
[2023-07-12] MEDS: ACETAMINOPHEN 1,000 MG/100 ML VIAL IV PRN (03:30)
[2023-07-12] MEDS: DAPTOmycin 500 MG in SYRINGE 0 ML IV SCH (03:30)
[2023-07-12] MEDS: SODIUM CHLORIDE 0.9% 1,000 ML IV SCH (03:31)
[2023-07-12 03:48] LABS: INR 1.1 (0.9-1.1); Prothrombin Time 11.7 Seconds (9.0-12.0)
[2023-07-12] MEDS: Heparin IV Adult Wt-Based Low-Dose *NO* INITIAL Bolus Protocol IV STA (04:04)
[2023-07-12] MEDS: HEPARIN SODIUM/DEXTROSE 25,000 UNITS/500 ML BAG IV SCH (04:05)
[2023-07-12] MEDS: INSULIN ASPART PER UNIT CHARGE SC SCH ×2 (06:21→15:01)
[2023-07-12 06:49] LABS: Estimated Average Glucose 301 mg/dl; Hemoglobin A1C 12.1 % (4.5-5.6)
--- NOTE | 2023-07-12 07:10 | XRay Report ---
XR chest 1V portable HISTORY: 72 years-old Male weakness acute weakness COMPARISON: 03/11/2023 TECHNIQUE: AP view of the chest FINDINGS: Cardiac silhouette is enlarged. Median sternotomy. Pulmonary vascular congestion. Ill-defined patchy opacities are most pronounced in the left lung seen within the left upper lung, lateral left midlung and left perihilar distributions. No pneumothorax or pleural effusion. Bones appear grossly intact. IMPRESSION: 1. Ill-defined patchy airspace opacities throughout the left lung may represent multifocal pneumonia. Short-term follow-up PA and lateral views of the chest recommended. 2. Cardiomegaly with pulmonary vascular congestion. ACT 112: Negative or not required by law. The above report was generated using voice recognition software. It may contain grammatical, syntax o r spelling errors. Electronically signed by: Patrick Mario M.D. 07/12/2023 7:09 AM
--- NOTE | 2023-07-12 07:57 | Hospitalist Progress Note ---
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 Ambriz performed on 06/16/[address] Ambriz plans for revision of great toe ischemia 07/15/2023 hypotension in the ER Lowest blood pressure recorded was 80/53, small fluid bolus due to HFrEF (40-45%) Daptomycin IV and cefepime IV Initial lactate 5.7, with follow-up 4.[address] on heparin drip Temporarily hold clopidogrel If no immediate procedure to be performed, patient can resume outpatient dosing of apixaban clopidogrel (2) DM (diabetes mellitus): Plan: Diabetes mellitus- Patient will initially be n.p.o., however, if no procedure to be performed, would resume diabetic diet Reduce glargine from 44 to 20 units subcu every morning Hold metformin and Jardiance Placed on Accu-Cheks with NovoLog SSI typically on gabapeitin for neruopathy (3) Heart failure with ejection fraction improved from reduced range to preserved range: Plan: CAD and Cardiomyopathy s/p CABG with MOSLEY, fib (kushal operative) Typically sees [facility] usually on asa, atorvastatin, Coreg 12.5, Initial troponin 39.4, with follow-up 37.4 suspect demand ischemia (4) Acute kidney injury superimposed on CKD: Plan: Acute kidney injury superimposed on CKD-3 Creatinine 2.48, with base 1.27- Stop spironolactone, Jardiance and furosemide Status post 500 mill bolus normal saline from the ED NSS at 80 mL/h x 1 L Mild hyponatremia is noted we will continue to follow as holding diuretics (5) Anxiety: (6) Tobacco abuse: Plan: Counseled regarding cessation Admission and Anticipated Discharge Date Admission Date: July 12, 2023 Subjective Patient with some discomfort in his foot he understands he can have a revision by Dr. Ambriz otherwise no significant problems other than lack of appetite. Physical Exam Physical Exam: Awake alert appropriate. Decreased creased capillary refill of the left great toe. Partial amputation of the second toe. Posterior tibialis but no dorsalis pedis pulse palpated on the left foot. Capillary refill on the other parts of the foot is delayed but not as much as the tip of the great toe which also has poor color Card exam is regular with a systolic murmur lungs are clear Results & Data Results & Data Vital Signs (Past 12 Hours) Vital Signs Temp Pulse Pulse Resp BP BP Pulse Ox 07/12/23 06:28 98.8 F 94 H 22 115/74 99 07/12/23 04:13 105 H 07/12/23 03:43 07/12/23 03:42 07/12/23 03:41 07/12/23 03:20 103 H 24 108/64 98 07/12/23 03:00 97 H 18 131/72 97 07/12/23 02:42 98 H 24 110/68 97 07/12/23 02:00 98 H 20 140/79 97 07/12/23 01:40 95 H 25 H 130/62 98 07/12/23 01:15 100 H 19 128/75 99 07/12/23 01:00 110 H 23 116/70 96 07/12/23 00:50 111 H 25 H 119/76 99 07/12/23 00:38 119 H 26 H 80/53 L 98 07/12/23 00:34 118 H 28 H 88/51 L 97 07/12/23 00:30 121 H 24 98 07/12/23 00:27 121 H 21 95/67 L 98 07/12/23 00:27 95 07/12/23 00:20 137 H 28 H 95/67 L 94 07/12/23 00:13 141 H 07/12/23 00:13 97.9 F 138 H 26 H 95/67 L 95 Pulse Ox O2 Del Method O2 Del Method O2 Flow Rate O2 Flow Rate 07/12/23 06:28 Nasal Cannula 2 07/12/23 04:13 07/12/23 03:43 Nasal Cannula 2 07/12/23 03:42 97 Nasal Cannula 2 07/12/23 03:41 Nasal Cannula 2 07/12/23 03:20 Nasal Cannula 2 07/12/23 03:00 Nasal Cannula 2 07/12/23 02:42 Nasal Cannula 2 07/12/23 02:00 Nasal Cannula 2 07/12/23 01:40 Nasal Cannula 2 07/12/23 01:15 Nasal Cannula 2 07/12/23 01:00 Nasal Cannula 2 07/12/23 00:50 Nasal Cannula 2 07/12/23 00:38 Nasal Cannula 2 07/12/23 00:34 Nasal Cannula 2 07/12/23 00:30 Nasal Cannula 2 07/12/23 00:27 Nasal Cannula 2 07/12/23 00:27 Room Air 0 07/12/23 00:20 07/12/23 00:13 07/12/23 00:13 Room Air Laboratory Results Reviewed CBc reviewed chemistry PG Care Time/CCT Total # of Minutes Spent Total Time Spent with Patient: Total time spent is greater than 50% in coordination of care (as documented) at patient's floor/unit and/or counseling patient: Coding Level of Care Code 03264 SUB INP/OBS CARE 3/50MIN Diagnoses 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 I73.9 DM (diabetes mellitus) E11.9 Heart failure with ejection fraction improved from reduced range to preserved range I50.32 Acute kidney injury superimposed on CKD N17.9; N18.9 Anxiety F41.9 Tobacco abuse Z72.0
--- NOTE | 2023-07-12 08:54 | XRay Report ---
LEFT FOOT TWO VIEWS CLINICAL HISTORY: Foot infection. FINDINGS: AP and lateral views of the left foot are obtained. Correlation is made with radiographs of the left first toe dated 09/14/2018. The skeletal structures are osteopenic. No acute fracture is see n. There is age indeterminate deformity/erosion involving the tuft of the first distal phalanx. There has likely been amputation of the second toe through the proximal interphalangeal joint. Moderate os teoarthritic change is noted at the first metatarsophalangeal joint. Milder degenerative change is se en throughout the remainder of the foot. There is a large plantar heel spur. Soft tissue edema is see n throughout the foot. There is mild atherosclerotic calcification of the regional arteries. IMPRESSION: 1. Soft tissue swelling with no fracture identified. 2. There is age indeterminant erosive change involving the tuft of the first distal phalanx. Correlat e clinically for evidence of osteomyelitis. 3. Additional chronic degenerative and postsurgical changes as above. Dictated: 07/12/2023 7:24 AM Transcribed: 07/12/2023 8:26 AM Aung [id number] [email or web address] Electronically signed by: Amarjit Holt M.D. 07/12/2023 8:51 AM
[2023-07-12] MEDS ORDERED: Nursing to Pharmacy Communication SCH (09:15)
--- NOTE | 2023-07-12 09:15 | Electrocardiogram Report ---
Test Reason : Blood Pressure : / mmHG Vent. Rate : 132 BPM Atrial Rate : 132 BPM P-R Int : 136 ms QRS Dur : 110 ms QT Int : 302 ms P-R-T Axes : 064 -33 108 degrees QTc Int : 447 ms Sinus tachycardia with Premature atrial complexes Left axis deviation Incomplete right bundle branch block Minimal voltage criteria for LVH, may be normal variant Poor R wave progression, consider anterior MD vs. lead placement vs. LVH Abnormal ECG When compared with ECG of 08-MAR-2023 11:17, Premature atrial complexes are now Present Vent. rate has increased BY 74 BPM T wave inversion less evident in Lateral leads Confirmed by Elmer Ring ([id number]) on 07/12/2023 9:14:59 AM Referred By: REFERRED SELF Confirmed By:Ovi Ring
--- NOTE | 2023-07-12 09:23 | Consultation ---
Date of Consultation July 12, 2023 Assessment & Plan (1) Ulcer of toe: Pt with infected appearing L great toe wound, now with eschar, purulence, and no cap refill. erythema does not appear to extend proximally or to other toes. Pt will require a L great toe amputation. Planning in Tuesday in OR. Pt agreeable. (2) Peripheral arterial disease with history of revascularization: Pt with recent hx of LLE femoral to anterior tibial artery reverse GSV bypass. THis appears patent by exam, as pulses are present with doppler. However, pulses were palpable at +2 in office last week. Will order arterial US to verify. History of Present Illness Reason for Consultation: L toe infection Attending Physician: Negro García MD History of Present Illness 72 yo m with hx of DMII, PAD s/p LLE femoral to anterior tibial artery reverse saphenous vein bypass in 02/2023, HTN, anxiety, CAD, cardiomyopathy, admitted with L great toe infection and sepsis, seen in consultation today. Pt underwent LLE 2nd to amputation and debridement of great toe eschar about [address] Ambriz. Pt was last seen in office on July 06, at which time granulation of wound bed with significant toe edema and erythema was noted. He declined hospital admission, so was placed on oral abx and to return to office in 1 week. Pt was advised to go to ED for any worsening sx. Pt states he was not able to get oob for 2 days prior to hospital arrival. Admits generalized weakness and L great toe pain. Denies NIEVES, measured fever, chest pain, SOB, abd pain, N/V, rest pain, claudication, other complaints. No vascular imaging performed Allergies Allergy/AdvReac Type Severity Reaction Status Date / Time cat dander Allergy Intermediate CONGESTION Verified 07/12/23 02:04 Home Medications Medication Instructions Recorded Confirmed Type atorvastatin 80 mg tablet (Lipitor) 80 mg PO QAM 05/15/19 07/12/23 History clopidogrel 75 mg tablet 75 mg PO QAM 05/15/19 07/12/23 History sacubitril 24 mg-valsartan 26 mg 1 tab PO BID 12/07/21 07/12/23 History tablet (Entresto) empagliflozin 25 mg tablet 25 mg PO QAM 05/30/22 07/12/23 History (Jardiance) carvedilol 12.5 mg tablet 12.5 mg PO BID #180 tabs 08/17/22 07/12/23 Rx amlodipine 5 mg tablet (Norvasc) 5 mg PO QAM 05/27/23 07/12/23 History furosemide 20 mg tablet 20 mg PO QAM 05/27/23 07/12/23 History gabapentin 100 mg capsule 100 mg PO DAILY 05/27/23 07/12/23 History apixaban 5 mg tablet (Eliquis) 5 mg PO BID 06/01/23 07/12/23 History insulin glargine 100 unit/mL (3 44 unit subcut QAM 06/01/23 07/12/23 History mL) subcutaneous pen (Lantus Solostar U-100 Insulin) sertraline 50 mg tablet (Zoloft) 75 mg PO QAM 06/01/23 07/12/23 History oxycodone-acetaminophen 5 mg-325 1 tab PO Q8H PRN pain #20 tabs 06/16/23 07/12/23 Rx mg tablet (Percocet) spironolactone 25 mg tablet 25 mg PO QAM 06/16/23 07/12/23 History (Aldactone) metformin 1,000 mg tablet 1,000 mg PO BID 07/12/23 07/12/23 History Patient History Medical History History of anemia History of anxiety History of alcohol abuse started 1965, quit 1999 Hx of drug abuse started 1965, quit 1999 "used every drug known to man">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, stayed in for 13 years IV drug abuse hx-quit in 1981 History of hepatitis B hx IV drug use Hepatitis C virus has had since the late s>no tx, "never had any trouble with it" Heart failure with mid-range ejection fraction Follows with [facility] EF 50-55% per 05/2022 ECHO Type 2 diabetes mellitus HTN (hypertension) Surgical History Hx of cardiac catheterization 06/2021 [facility] History of open reduction and internal fixation (ORIF) procedure rt elbow and lt wrist>hardware intact Hx of colonoscopy History of left knee surgery 1988-tibial plateau reconstruction History of eye surgery retina History of cataract extraction rt/lt Social History Smoking Status: Current every day smoker Tobacco Type: Cigarettes Cigarettes Per Day: 12 per day >>advised; Second Hand Exposure: Yes (hx); Do You Dip or Chew Tobacco: No; Hx Alcohol Use: No Hx Substance Use: Yes Last Used Substance Other:: quit 1999-stated "used every drug known to man" Substance Use Type Other:: IV drugs Preferred Language: Albanian Communication Ability: Effective Executive Services Administrator Required: No Beliefs That Will Affect Care: None Current Living Situation: Alone How many Children do You have: 1 Feels Safe at Home: Yes Assistive Devices: Glasses Review of Systems Review of Systems: All systems reviewed & are unremarkable except as noted in HPI & below Physical Exam Constitutional: WD/WN, vitals as above + ill appearing, cooperative and comfortable; not in distress Neck: trachea midline Respiratory: normal respiratory effort, lungs clear to auscultation Auscultation: + diminished lung sounds Cardiovascular: Rate/Rhythm: regular rate and regular rhythm Vessels: posterior tibial pulses present (dopplerable), dorsalis pedis pulses present (dopplerable) and radial pulses present; + abnormal peripheral pulses Extremities: normal capillary refill (except L great toe dusky, cool) and + edema (L great toe) Gastrointestinal (Abdomen): Inspection/Auscultation: abdomen normal to inspection and normal bowel sounds Percussion/Palpation: abdomen soft; abdomen nontender Musculoskeletal: Extremities: strength 5/5 throughout Skin: + erythema (and swelling, macerated) and + eschar (L medial toe, purulent discharge dorsally, ) Neurologic: moves all extremities and awake; no focal motor deficits and not confused Psychiatric: A+Ox3, euthymic affect Results & Data Vital Signs (Past 12 Hours) Vital Signs Temp Pulse Pulse Resp BP BP Pulse Ox 07/12/23 07:59 93 H 07/12/23 06:28 37.1 C 94 H 22 115/74 99 07/12/23 04:13 105 H 07/12/23 03:43 07/12/23 03:42 07/12/23 03:41 07/12/23 03:20 103 H 24 108/64 98 07/12/23 03:00 97 H 18 131/72 97 07/12/23 02:42 98 H 24 110/68 97 07/12/23 02:00 98 H 20 140/79 97 07/12/23 01:40 95 H 25 H 130/62 98 07/12/23 01:15 100 H 19 128/75 99 07/12/23 01:00 110 H 23 116/70 96 07/12/23 00:50 111 H 25 H 119/76 99 07/12/23 00:38 119 H 26 H 80/53 L 98 07/12/23 00:34 118 H 28 H 88/51 L 97 07/12/23 00:30 121 H 24 98 07/12/23 00:27 121 H 21 95/67 L 98 07/12/23 00:27 95 07/12/23 00:20 137 H 28 H 95/67 L 94 07/12/23 00:13 141 H 07/12/23 00:13 36.6 C 138 H 26 H 95/67 L 95 Pulse Ox O2 Del Method O2 Del Method O2 Flow Rate O2 Flow Rate 07/12/23 07:59 07/12/23 06:28 Nasal Cannula 2 07/12/23 04:13 07/12/23 03:43 Nasal Cannula 2 07/12/23 03:42 97 Nasal Cannula 2 07/12/23 03:41 Nasal Cannula 2 07/12/23 03:20 Nasal Cannula 2 07/12/23 03:00 Nasal Cannula 2 07/12/23 02:42 Nasal Cannula 2 07/12/23 02:00 Nasal Cannula 2 07/12/23 01:40 Nasal Cannula 2 07/12/23 01:15 Nasal Cannula 2 07/12/23 01:00 Nasal Cannula 2 07/12/23 00:50 Nasal Cannula 2 07/12/23 00:38 Nasal Cannula 2 07/12/23 00:34 Nasal Cannula 2 07/12/23 00:30 Nasal Cannula 2 07/12/23 00:27 Nasal Cannula 2 07/12/23 00:27 Room Air 0 07/12/23 00:20 07/12/23 00:13 07/12/23 00:13 Room Air
[2023-07-12] MEDS: LANTUS PER UNIT CHARGE SQ SCH (09:27)
[2023-07-12] MEDS: PANTOprazole 40 MG in SYRINGE 0 ML IV SCH (11:54)
[2023-07-12 12:32] LABS: ANTI-Xa, UFH(UnfractionatedHep 0.37 IU/ml (0.3-0.7)
--- NOTE | 2023-07-12 13:09 | Ultrasound Report ---
US arterial duplex LE LT HISTORY: 72 years-old Male PAD, fem-ant tib bypass peripheral arterial disease COMPARISON: 05/06/2023. TECHNIQUE: Multiple real-time sonographic images of the left lower extremity arterial structures were obtained assessing grayscale appearance, color and spectral flow. FINDINGS: There is diffuse atherosclerosis. Subcutaneous edema is noted throughout. Patent graft extends from t he common femoral artery to the region of the tibioperoneal trunk. Chronic occlusion of the [place] perficial femoral and popliteal arteries. Elevated peak systolic velocities within the distal posteri or tibial artery measure up to 262 cm/s. Minimal to no arterial flow within the peroneal and anterior tibial arteries. Blunted monophasic waveforms in the dorsalis pedis artery also demonstrate diminish ed flow with peak systolic velocities measuring approximately 26 cm/s. Likely benign left inguinal chain lymph nodes with central fatty kavon measure up to 1.4 cm in short a xis. IMPRESSION: 1. Atherosclerosis with patent arterial graft extending from the common femoral artery to the upper c retirement. 2. Elevated peak systolic velocities within the posterior tibial artery compatible with arterial sten osis. 3. Minimal flow within the peroneal and anterior tibial arteries. ACT 112: Negative or not required by law. The above report was generated using voice recognition software. It may contain grammatical, syntax o r spelling errors. Dictated: 07/12/2023 11:49 AM Transcribed: 07/12/2023 12:08 PM Jose Angel [id number] Leah [id number] Electronically signed by: Patrick Mario M.D. 07/12/2023 1:08 PM
--- OUTSIDE RECORDS SUMMARY | 2023-07-12 13:41 | External Medical Summary | Continuity of Care Document ---
Author Name Unknown Organization [facility] [address] [facility] Address [address] [place], [place] [id number] Care Team Providers Care Plasma Specialist Name Role Phone Elmer Fraire Primary Care Physician [phone] Encounter [facility] [id number] Date(s): 06/20/23 - 06/20/23 [facility] [address], [address] [place] [address] [phone] Encounter Diagnosis Gangrene of toe(Discharge Diagnosis) - 06/20/23 Discharge Disposition: Home or Self Care Attending Physician: MD Ambriz Eugene J Referring Physician: MD Fraire Christopher Allergies, Adverse Reactions, Alerts Substance Reaction Severity Status Cats Nasal congestion Active Grass Nasal congestion Active Influenza Virus Vaccine chills Mild Acti ve Assessment and Plan Extracted from: Title:Clinical Document Author:MD Garcia P eter Date:06/20/23 VASCULAR SURGERY OUTPATIENT NOTE Name: ELLEN ALVAREZ Patient Number: [id number] : 1950 Date of Service: 06/20/2023 Chief Complaint: 4 day follow up s/p second toe amputation HPI: Mr. Alvarez is an elderly male who presents to Dr. Ambriz vascular surgery clinic today for a four day follow up visit after undergoing a left second toe amputation and left first, third and fourth toe wound debridement. He also recently had a left leg angiogram procedure with MERCERIZER of the proximal vein bypass [facility], about three weeks ago. Patient denies any problems or concerns related to his foot wounds. His left foot pain has significantly improved following the amputation. 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 Coburn in February 2023. Patient denies fevers chills nausea vomiting or claudication symptoms. His left foot pain has improved. He has had no fevers or chills. No problems with his dressing. He does state that he has home nursing coming to the house but only once a week. Current Home Meds: (Last Updated 06/08 14:04) amLODIPine (amLODIPine 5 mg oral tablet) 5 mg PO Daily apixaban (Eliquis 5 mg oral tablet) 5 mg PO bid atorvastatin (atorvastatin 80 mg oral tablet) 80 mg PO Daily carvedilol (carvedilol 25 mg oral tablet) 12.5 mg PO bid ciprofloxacin (Cipro 500 mg oral tablet) 500 mg PO q12h clopidogrel (clopidogrel 75 mg oral tablet) 75 mg PO Daily diabetes supplies (One Touch Ultra 2 Glucose Monitor) check qAM and with meals, and as needed for symptoms diabetes supplies (One Touch Ultra Test Strips 100 ct) check qAM and with meals, and as needed for symptoms diabetes supplies (One Touch Delica Plus (30G) Lancets) check qAM and with meals, and as needed for symptoms empagliflozin (Jardiance 25 mg oral tablet) 25 mg PO Daily furosemide (Lasix 20 mg oral tablet) 20 mg PO Daily gabapentin (gabapentin 100 mg oral capsule) 100 mg PO Daily insulin glargine (Lantus Solostar Pen 100 units/mL subcutaneous solution) 50 unit subQ Daily metFORMIN (metFORMIN 1000 mg oral tablet) 1,000 mg PO bid naproxen (Aleve) pantoprazole (pantoprazole 40 mg oral delayed release tablet) 40 mg PO Daily sacubitril-valsartan (Entresto 24 mg-26 mg oral tablet) 2 tab PO bid sertraline (sertraline 50 mg oral tablet) 75 mg PO Daily spironolactone (spironolactone 25 mg oral tablet) 50 mg PO bid syringe needles (BD needle Ultra-Fine Pen Zulay 32G x 4mm) Use as directed with insulin. Max 2/day. Use new pen needle with each injection. syringe needles (BD needle Ultra-Fine Pen Zulay 32G x 4mm) Use as directed with insulin. Max 4/day. Use new pen needle with each injection. traMADol (traMADol 50 mg oral tablet) 50 mg PO q4h PRN: as needed for pain Allergies and Sensitivities: Influenza Virus Vaccine(chills) Grass(Nasal congestion) Cats(Nasal congestion) Past Medical History: Problems: Gangrene of toe Toe infection Atherosclerosis Sequelae of nontraumatic subarachnoid hemorrhage S/P femoral-tibial bypass Peripheral artery disease Hyponatremia Preop cardiovascular exam Hx of atrial fibrillation, no current medication Erectile dysfunction of organic origin Chronic systolic (congestive) heart failure Chronic obstructive lung disease (disorder) Anemia HTN (hypertension) Cardiomyopathy Pulmonary hypertension Diabetes mellitus with chronic kidney disease Chronic kidney disease, stage 3b Floaters History of dental problems Other stimulant dependence, in remission Smokes tobacco daily S/P CABG (coronary artery bypass graft) Iron deficiency anemia History of non-ST elevation myocardial infarction (NSTEMI) Coronary artery disease Type 2 diabetes mellitus with diabetic peripheral angiopathy without gangrene Mild major depression, single episode Leg cramp Chronic lower back pain Chronic total occlusion of artery of the extremities Hyperlipidemia Chronic hepatitis C History of cataract Retinopathy of left eye History of substance use OBJECTIVE Vitals: Last Updated 06/20/23 13:12 Date Temp BP Location Pulse RR SpO2 Pain 06/20/23 176/78 Left Arm 75 98 06/20/23 0 06/09/23 0 Vital Signs are the last 3 documented. No Orthostatic Data Available Height and Weight: Last Updated 05/16/23 12:44 Date BMI Wt(kg) Wt(lb) Method Ht(cm) (ft-in) Method 05/16/23 98.1 216 Standing Scale 04/20/23 29.44 95.9 211 Standing Scale 180.5 5-11 Standing 03/25/23 102.6 226 Bed Scale Heights and Weights are the last 3 documented. Physical Exam General: no acute distress, resting comfortably in chair HEENT:normocephalic,atraumatic Cardiovascular: regular rate Pulmonary: breathing comfortably on room air, equal chest rise bilaterally Abdomen: soft, nondistended Extremity:Left foot with well approximated left second toe amputation site. No discharge. No erythema. Third and fourth left toe wounds dry, no erythema. Left great toe with some fibrinous material at proximal wound edge. No surrounding erythema. No discharge. Foot is warm, motor intact Neuro: CNII-CNXII grossly intact, no focal deficits appreciated Skin: warm and well perfused, no rashes or jaundice appreciated ASSESSMENT: _ PLAN: _ 1 ) _PAD, s/p left second toe amputation Patient recently underwent amputation of his distal left second toe as well as debridement of his other toes. He has done well since the procedure and is walking with his Darco Wedge. He has had no fever or chills. His wounds appear to be healing well with no signs of infection. Patient is advised that if he should develop a fever or any other concerning symptoms he should go to the emergency department for evaluation and admission. He should continue with daily dry dressing changes to his feet to keep his wounds covered. He should apply Santyl to the great toe wound. We will see him again in three weeks for suture removal. Patient expresses understanding and agreement to proceed. Patient is advised to call with any other questions. Thank you for letting us participate in the care of this patient. I saw and evaluated the patient. Discussed with the resident and agree with the resident's findings and plan as documented in the resident's note. Immunizations Given and Recorded Vaccine Date Status Refusal Reason tetanus/diphtheria/pertuss, acel (Tdap) 1 05/15/19 Recorded pneumococcal 23-valent vaccine 05/02/19 Given influenza virus vaccine, inactivated 02/05/19 Give n pneumococcal 13-valent vaccine 2, 3 04/05/18 Recor ded 1Result Comment: 2020-08-21: Historical information-source unspecified 2Location History: [facility] 13 3Result Comment: 2018-10-12: Historical information-source unspecified Medications Aleve Start: 05/16/23 12:42:00 EDT Start Date: 05/16/23 Status: Ordered amLODIPine 5 mg oral tablet Start: 04/19/23 11:33:00 EST, 1 tab, PO, Daily Start Date: 04/19/23 Status: Ordered atorvastatin 80 mg oral tablet Start: 06/17/22 12:11:00 EDT, 1 tab, PO, Daily, Disp# 90 tab, Refills: 3, Pharmacy: [id number] Start Date: 06/17/22 Stop Date: 06/12/23 Status: Ordered BD needle Ultra-Fine Pen Zulay 32G x 4mm Start: 04/20/23 17:00:00 EST, See Instructions, Disp# 100 each, Use as directed with insulin. Max 2/day. Use new pen needle with each injection. Start Date: 04/20/23 Status: Ordered BD needle Ultra-Fine Pen Zulay 32G x 4mm Start: 07/16/22 10:06:00 EDT, See Instructions, Disp# 100 each, Use as directed with insulin. Max 4/day. Use new pen needle with each injection., Pharmacy: [facility] Start Date: 07/16/22 Status: Ordered carvedilol 25 mg oral tablet Start: 04/28/23 14:41:00 EST, 0.5 tab, PO, bid Start Date: 04/28/23 Status: Ordered Cipro 500 mg oral tablet Start: 06/09/23 14:04:00 EDT, 1 tab, PO, q12h, Disp# 20 tab, Refills: 0, Pharmacy: [place] [id number] Start Date: 06/09/23 Status: Ordered clopidogrel 75 mg oral tablet Start: 06/17/22 12:10:00 EDT, 1 tab, PO, Daily, Disp# 90 tab, Refills: 3, Pharmacy: [facility] Start Date: 06/17/22 Stop Date: 06/12/23 Status: Ordered Eliquis 5 mg oral tablet Start: 06/21/23 15:27:00 EDT, 1 tab, PO, bid, Disp# 180 tab, Refills: 3 Start Date: 06/21/23 Status: Ordered Entresto 24 mg-26 mg oral tablet Start: 02/23/23 14:53:00 EST, 2 tab, PO, bid, Disp# 180 tab, Refills: 3, Pharmacy: [facility] Start Date: 02/23/23 Status: Ordered gabapentin 100 mg oral capsule Start: 05/16/23 13:00:00 EDT, 1 cap, PO, Daily, Disp# 90 cap, Pharmacy: [facility] Start Date: 05/16/23 Stop Date: 08/14/23 Status: Ordered Jardiance 25 mg oral tablet Start: 10/26/22 16:11:00 EDT, 1 tab, PO, Daily, Disp# 90 tab, Refills: 2, Pharmacy: [facility] Start Date: 10/26/22 Stop Date: 07/23/23 Status: Ordered Lantus Solostar Pen 100 units/mL subcutaneous solution Start: 03/01/23 9:39:00 EST, 50 unit =, subQ, Daily, Disp# 15 mL, Refills: 2, Brand Medically Necessary, Pharmacy: [facility] Start Date: 03/01/23 Status: Ordered Lasix 20 mg oral tablet Start: 03/25/23 10:50:00 EST, 1 tab, PO, Daily Start Date: 03/25/23 Status: Ordered metFORMIN 1000 mg oral tablet Start: 06/17/22 12:09:00 EDT, 1 tab, PO, bid, Disp# 180 tab, Refills: 3, Pharmacy: [facility] Start Date: 06/17/22 Stop Date: 06/12/23 Status: Ordered One Touch Delica Plus (30G) Lancets Start: 04/20/23 17:00:00 EST, See Instructions, Disp# 100 each, check qAM and with meals, and as needed for symptoms Start Date: 04/20/23 Status: Ordered One Touch Ultra 2 Glucose Monitor Start: 04/20/23 16:59:00 EST, See Instructions, Disp# 1 each, check qAM and with meals, and as needed for symptoms Start Date: 04/20/23 Status: Ordered One Touch Ultra Test Strips 100 ct Start: 04/20/23 16:59:00 EST, See Instructions, Disp# 100 each, check qAM and with meals, and as needed for symptoms Start Date: 04/20/23 Status: Ordered pantoprazole 40 mg oral delayed release tablet Start: 03/18/23 15:12:00 EST, 1 tab, PO, Daily Start Date: 03/18/23 Status: Ordered sertraline 50 mg oral tablet Start: 12/20/22 13:48:00 EDT, 1.5 tab, PO, Daily, Disp# 135 tab, Refills: 3, Pharmacy: [facility] Start Date: 12/20/22 Stop Date: 12/15/23 Status: Ordered spironolactone 25 mg oral tablet Start: 10/26/22 16:11:00 EDT, 2 tab, PO, bid, Disp# 360 tab, Refills: 3, Pharmacy: [facility] Start Date: 10/26/22 Stop Date: 10/21/23 Status: Ordered traMADol 50 mg oral tablet Start: 06/09/23 14:01:00 EDT, 1 tab, PO, q4h, Disp# 20 tab, Refills: 0, PRN: as needed for pain, Pharmacy: [id number] Start Date: 06/09/23 Status: Ordered Mental Status 06/20/23 Barriers to Learning one year None evide nt Mandatory Health Literacy Documentation Yes Health Literacy Communication Barriers N ever Primary Language Spanish Problem List Condition Confirmation Course Effective Dates Status H ealth Status Informant Anemia Confirmed Active Atherosclerosis Confirmed Active Cardiomyopathy Confirmed Active Chronic hepatitis C Confirmed Active Chronic kidney disease, stage 3b 1 Confirmed Active Chronic lower back pain Confirmed Active Chronic obstructive lung disease (disorder) Confirmed Active Chronic total occlusion of artery of the extremities Confirmed Active Chronic systolic (congestive) heart failure Confirmed Active Coronary artery disease Confirmed Active Leg cramp Confirmed Active Diabetes mellitus with chronic kidney disease Confirmed Active Gangrene of toe Confirmed Active Hx of atrial fibrillation, no current medication Confirmed Active History of cataract Confirmed Active S/P femoral-tibial bypass Confirmed Active History of dental problems 2 Confirmed Active S/P CABG (coronary artery bypass graft) Confirmed Active History of non-ST elevation myocardial infarction (NSTEMI) Confirmed Active History of substance use Confirmed Active Hyperlipidemia Confirmed Active HTN (hypertension) Confirmed Active Hyponatremia Confirmed Active Toe infection Confirmed Active Iron deficiency anemia Confirmed Active Mild major depression, single episode 3 Confirmed Active Preop cardiovascular exam Confirmed Active Peripheral artery disease Confirmed Active Pulmonary hypertension 4 Confirmed Active Retinopathy of left eye Confirmed Active Erectile dysfunction of organic origin Confirmed Active Sequelae of nontraumatic subarachnoid hemorrhage Confirmed Active Smokes tobacco daily Confirmed Active Other stimulant dependence, in remission 5 Confirmed Active Type 2 diabetes mellitus with diabetic peripheral angiopathy without gangrene Confirmed Active Floaters Confirmed Active GFR= 37.8 22 teeth remaining - does want to get dentures but unable to do so at present and so does have intermittent abscess requiring abx therapy 3bupropion 4See outsiide note 10/19/21 Cardiology note 11/19/21 page 4 07/09/21 Echo Severe Pulmonary Hypertension RVSP 80 mmHg - 2x suicide attempts - 1 overdose with high quantities of methadone, alprazolam and alcohol (not evaluated by medical) and another with superficial cutting Diagnosis Diagnosis Type Effective Dates Health Status Cl inical Service Informant Gangrene of toe Discharge Diagnosis 06/20/23 Procedures Procedure Date Related Diagnosis Body Site Status LLE Angiogram w/ pulse spray thrombolysis SFA and Pop, MERCERIZER stent SFA and Pop 06/01/22 Completed Doppler ultrasonography of v enous structure of left lower limb 1 05/30/22 C ompleted Duplex scan of left lower li mb arteries 2 05/30/22 Completed Chest X-ray 3 12/09/21 Completed Cardiac catheterization 4 07/08/21 Completed left lower extremity angio w ith insertion of TPA catheter 10/23/18 Comple torsten Assessment of arterial blood flow using ultrasound 5 10/22/18 Completed Duplex ultrasound 6 09/15/18 Compl eted Plain x-ray left toe 7 Co mpleted 1Impression: Currently there is normal compressibility of the deep venous system from the common femoral vein through the proximal calf veins. No superficial venous thrombosis is identified. 2Impression: Severe hemodynamically significant stenosis is again seen with likely progression of parvus tardus waveforms in the distal superficial artery and no significant flow below the popiteal artery 3impression: No acute process 41. Severe CAD involving circumflex. 2. Moderate to severe CAD involving the LAD. 3. Otherwise, nonobstructive CAD. 4. No aortic stenosis. 5. Mildly elevated left-sided filling pressures. 6. Reduced cardiac output via thermodilution. 5performed at [facility] Extensive left lower extremity arterial atherosclerosis. Patent left common femoral artery and leftprofunda artery with triphasic waveforms. Patent left superficial femoral artery with biphasic and monophasic waveforms. High-grade stenosis/near occlusion of the popliteal artery with minimal monobasic flow. Peak systolic velocity of 9cm/s. Occlusion or near occlusion of the calf vessels and dorsalis pedis artery. 6US ARTERIAL DUPLEX LE BI IMPRESSION: 1) Hemodynamically significant stenosis in the mid right posterior tibial artery 2) Hemodynamaically significant stenosis in the distal left superficial femoral artery 3) Occluded left anterior tibial artery 4) Borderline abnormal left CHRISTOPHER. Normal right CHRISTOPHER 7moderated degenerative change. mild hallux valgus configuration. Vital Signs Most recent to oldest [Reference Range]: 1 Heart Rate 75 bpm (06/20/23 1:12 PM) Blood Pressure 176/78mmHg (06/20/23 1:12 PM) Cuff Pulse Pressure 98 mmHg (06/20/23 1:12 PM) BP Location # 1 Left Arm (06/20/23 1:12 PM) Social History Social History Type Response Tobacco Current every day sm oker, Cigarettes, 5 per day. 40 year(s). Total pack years: 50. 1 Smoking Status Current every day he suzanne smoker Sex Male 1in the Am Implantable Device List Procedure Provider Procedure Date Device Type Site Unknown Unknown 03/15/23 Unknown Unknown Device Identifier Serial Number Lot or Batch Number Manufacturing Date Expiration Date Distinct Identification Code MRI Safety Implantable Status Assigning Authority Unknown Unknown [id number] Unknown 12/25/26 Unknown Unknown Active Unknown Vascular surgery Outpatient Note * MD Ambriz Eugene J: MODIFY MD Ambriz Eugene J: MODIFY, MODIFY Event Display: Vascular Surgery Outpt Note Authored Date: [id number] VASCULAR SURGERY OUTPATIENT NOTE Name: ELLEN ALVAREZ Patient Number: [id number] : 1950 Date of Service: 06/20/2023 Chief Complaint: 4 day follow up s/p second toe amputation HPI: Mr. Alvarez is an elderly male who presents to Dr. Ambriz vascular surgery clinic today for a four day follow up visit after undergoing a left second toe amputation and left first, third and fourth toe wound debridement. He also recently had a left leg angiogram procedure with MERCERIZER of the proximal vein bypass [facility], about three weeks ago. Patient denies any problems or concerns related to his foot wounds. His left foot pain has significantly improved following the amputation. As you may remember the patient did have left toe necrosis and eschars related to an ischemicevent which necessitated the left leg femoral artery to posterior tibial artery reverse saphenous vein bypass performed at [facility] by Dr. Coburn in February 2023. Patient denies fevers chills nausea vomiting or claudication symptoms. His left foot pain has improved. He has had no fevers or chills. No problems with his dressing. He does state that he has home nursing coming to the house but only once a week. Current Home Meds: (Last Updated 06/08 14:04) amLODIPine (amLODIPine 5 mg oral tablet) 5 mg PO Daily apixaban (Eliquis 5 mg oral tablet) 5 mg PO bid atorvastatin (atorvastatin 80 mg oral tablet) 80 mg PO Daily carvedilol (carvedilol 25 mg oral tablet) 12.5 mg PO bid ciprofloxacin (Cipro 500 mg oral tablet) 500 mg PO q12h clopidogrel (clopidogrel 75 mg oral tablet) 75 mg PO Daily diabetes supplies (One Touch Ultra 2 Glucose Monitor) check qAM and with meals, and as needed for symptoms diabetes supplies (One Touch Ultra Test Strips 100 ct) check qAM and with meals, and as needed for symptoms diabetes supplies (One Touch Delica Plus (30G) Lancets) check qAM and with meals, and as needed forsymptoms empagliflozin (Jardiance 25 mg oral tablet) 25 mg PO Daily furosemide (Lasix 20 mg oral tablet) 20 mg PO Daily gabapentin (gabapentin 100 mg oral capsule) 100 mg PO Daily insulin glargine (Lantus Solostar Pen 100 units/mL subcutaneous solution) 50 unit subQ Daily metFORMIN (metFORMIN 1000 mg oral tablet) 1,000 mg PO bid naproxen (Aleve) pantoprazole (pantoprazole 40 mg oral delayed release tablet) 40 mg PO Daily sacubitril-valsartan (Entresto 24 mg-26 mg oral tablet) 2 tab PO bid sertraline (sertraline 50 mg oral tablet) 75 mg PO Daily spironolactone (spironolactone 25 mg oral tablet) 50 mg PO bid syringe needles (BD needle Ultra-Fine Pen Zulay 32G x 4mm) Use as directed with insulin. Max 2/day. Use new pen needle with each injection. syringe needles (BD needle Ultra-Fine Pen Zulay 32G x 4mm) Use as directed with insulin. Max 4/day. Use new pen needle with each injection. traMADol (traMADol 50 mg oral tablet) 50 mg PO q4h PRN: as needed for pain Allergies and Sensitivities: Influenza Virus Vaccine(chills) Grass(Nasal congestion) Cats(Nasal congestion) Past Medical History: Problems: Gangrene of toe Toe infection Atherosclerosis Sequelae of nontraumatic subarachnoid hemorrhage S/P femoral-tibial bypass Peripheral artery disease Hyponatremia Preop cardiovascular exam Hx of atrial fibrillation, no current medication Erectile dysfunction of organic origin Chronic systolic (congestive) heart failure Chronic obstructive lung disease (disorder) Anemia HTN (hypertension) Cardiomyopathy Pulmonary hypertension Diabetes mellitus with chronic kidney disease Chronic kidney disease, stage 3b Floaters History of dental problems Other stimulant dependence, in remission Smokes tobacco daily S/P CABG (coronary artery bypass graft) Iron deficiency anemia History of non-ST elevation myocardial infarction (NSTEMI) Coronary artery disease Type 2 diabetes mellitus with diabetic peripheral angiopathy without gangrene Mild major depression, single episode Leg cramp Chronic lower back pain Chronic total occlusion of artery of the extremities Hyperlipidemia Chronic hepatitis C History of cataract Retinopathy of left eye History of substance use OBJECTIVE Vitals: Last Updated 06/20/23 13:12 Date Temp BP Location Pulse RR SpO2 Pain 06/20/23 176/78 Left Arm 75 98 06/20/23 0 06/09/23 0 Vital Signs are the last 3 documented. No Orthostatic Data Available Height and Weight: Last Updated 05/16/23 12:44 Date BMI Wt(kg) Wt(lb) Method Ht(cm) (ft-in) Method 05/16/23 98.1 216 Standing Scale 04/20/23 29.44 95.9 211 Standing Scale 180.5 5-11 Standing 03/25/23 102.6 226 Bed Scale Heights and Weights are the last 3 documented. Physical Exam General: no acute distress, resting comfortably in chair HEENT:normocephalic,atraumatic Cardiovascular: regular rate Pulmonary: breathing comfortably on room air, equal chest rise bilaterally Abdomen: soft, nondistended Extremity:Left foot with well approximated left second toe amputation site. No discharge. No erythema. Third and fourth left toe wounds dry, no erythema. Left great toe with some fibrinous material at proximal wound edge. No surrounding erythema. No discharge. Foot is warm, motor intact Neuro: CNII-CNXII grossly intact, no focal deficits appreciated Skin: warm and well perfused, no rashes or jaundice appreciated ASSESSMENT: _ PLAN: _ 1 ) _PAD, s/p left second toe amputation Patient recently underwent amputation of his distal left second toe as well as debridement of his other toes. He has done well since the procedure and is walking with his Darco Wedge. He has had no fever or chills. His wounds appear to be healing well with no signs of infection. Patient is advised that if he should develop a fever or any other concerning symptoms he should go to the emergency department for evaluation and admission. He should continue with daily dry dressing changes to his feetto keep his wounds covered. He should apply Santyl to the great toe wound. We will see him again inthree weeks for suture removal. Patient expresses understanding and agreement to proceed. Patient is advised to call with any other questions. Thank you for letting us participate in the care of this patient. I saw and evaluated the patient. Discussed with the resident and agree with the resident's findingsand plan as documented in the resident's note. Electronic Signature on File CC: Elmer Fraire MD [id number] [address] Electronically Reviewed/Signed by: Ellen Garcia MD Author Signature Dt/Tm:06/20/2023 01:46 PM Resident Division of General Surgery Electronically Reviewed/Signed by: Bhavin Ambriz MD Cosigner Signature Dt/Tm: 06/20/2023 02:00 PM Play Reader Kyle Artie [facility] [place] [address] PC Patient Care team information Care Team Personnel Name: MICHAEL Pineda Terra L Position: Nurse Pract - Vascular Surg Member Role: Lifetime Relationship Address: Address: [address] [place] [address] [place] Name: Meet Buenrostro Todd Position: Pharmacist Schedule II Member Role: Pharmacy - Lifetime Address: Address: [address] [place] [address] [place] Name: MD Fraire Christopher Position: Physician - Family Med Member Role: Primary Care Provider Address: Address: [address] [address] [place] Name: JUSTUS Pina Lynn Position: Physician Docking Pilot Exempt - Vasc Surg Member Role: Lifetime Relationship Address: Address: [address] [place] [address] [place] Name: Meet Nagy Ashley Position: Pharmacist Schedule II Member Role: Pharmacy - Lifetime
--- OUTSIDE RECORDS SUMMARY | 2023-07-12 13:41 | External Medical Summary | Continuity of Care Document ---
Author Name Unknown Organization [facility] [address] [facility] Address [address] [place], [place] [id number] Care Team Providers Care Genetics Physician Name Role Phone Elmer Fraire Primary Care Physician [phone] Encounter [facility] [id number] Date(s): 07/07/23 - 07/07/23 [facility] [address], [address] [place] [phone] Encounter Diagnosis S/P amputation of lesser toe(Discharge Diagnosis) - 07/07/23 Toe infection(Discharge Diagnosis) - 07/07/23 Paresthesia of left foot(Discharge Diagnosis) - 07/08/23 Discharge Disposition: Home or Self Care Attending Physician: MD Ambriz Eugene J Referring Physician: MD Fraire Christopher Allergies, Adverse Reactions, Alerts Substance Reaction Severity Status Cats Nasal congestion Active Grass Nasal congestion Active Influenza Virus Vaccine chills Mild Acti ve Assessment and Plan Extracted from: Title:Clinical Document Author:JUSTUS Pina Lynn Date:07/07/23 [facility] OUTPATIENT NOTE Name: ELLEN ALVAREZ Patient Number: [id number] : 1950 Date of Service: 07/07/2023 Chief Complaint: _Follow-up after left second toe amputation and foot debridement HPI: _Mr. Alvarez is an elderly male presents to Dr. Ambriz vascular surgery clinic today for a 2-week follow-up visit regarding his left second toe amputation and debridement first toe which occurred at [facility]. As you may remember, patient is status post left leg femoral artery to tibial artery reversed GSV bypass performed at [facility] due to an ischemic left foot, with gangrene of the toes of the left foot. While most of the gangrenous areas did resolve after revascularization, his left second toe remained necrotic and his first toe had a large eschar which needed removed. Patient states that he was doing well postoperatively until a few days ago, when he noted that his left great toe was more swollen and reddened in appearance. He states he has been having increased pain in the left great toe as well. He states that the home nurses told him that it was looking well. He denies any fevers chills nausea vomiting or other systemic symptoms. He states that the remainder of his leg and foot feel fine. Current Home Meds: (Last Updated 07/06 14:03) amLODIPine (amLODIPine 5 mg oral tablet) 5 [...] congestion) Cats(Nasal congestion) Past Medical History: Problems: S/P amputation of lesser toe Gangrene of toe Toe infection Atherosclerosis Sequelae [...] of substance use OBJECTIVE Vitals: Last Updated 07/07/23 13:38 Date Temp BP Location Pulse RR SpO2 Pain 07/07/23 0 07/07/23 144/80 Left Arm 80 98 06/20/23 176/78 Left Arm 75 98 Vital Signs are the last 3 documented. No Orthostatic Data Available Height and Weight: Last Updated 05/16/23 12:44 Date BMI Wt(kg) Wt(lb) Method Ht(cm) (ft-in) Method 05/16/23 98.1 216 Standing Scale 04/20/23 29.44 95.9 211 Standing Scale 180.5 5-11 Standing 03/25/23 102.6 226 Bed Scale Heights and Weights are the last 3 documented. Physical Exam Constitutional: In general patient is a healthy-appearing well-nourished well-developed elderly male in no distress. His left PT pulses +2, DP pulses +1. His toes in the left foot have brisk capillary refill. His second toe amputation site is clean dry and intact with sutures, these were removed today without wound dehiscence. His great toe is bulbous and erythematous and warm to touch to the base of the great toe. This does not extend proximally. There is no overt odor, however, the debridement wound to the medial side of the toe and the distal end of the toe do appear to be very moist. There is some slough around the edge of the wound, and the wound bed itself appears to be pink. The toe is painful for the patient. ASSESSMENT: _ PLAN: _ 1 ) _status post left second toe amputation and debridement of great toe Overall the patient's second toe amputation is healing as expected. His the distal pulses remain palpable. His great toe, however, does appear to be cellulitic and the wound beds are moist, concerning for infection. At this point he has no systemic symptoms that would necessitate urgent intervention. We will start him on oral antibiotics with Cipro 500 mg twice daily to take until his next appointment here in 1 week for reevaluation. Additionally we will give him tramadol 50 mg 1 pill every 4 hours as needed pain, 20 tablets, to use for pain control in addition to Tylenol at home until his office appointment next week. He is advised to call us if his symptoms should worsen, and to go to the nearest emergency department if he should develop a fever or any nausea, vomiting, or other systemic symptoms. Patient is agreeable to this plan. Thank you for letting us participate in the care of this patient. Immunizations Given and Recorded Vaccine Date Status [...] Ordered amLODIPine 5 mg oral tablet Start: 06/24/23 16:22:00 EDT, 1 tab, PO, Daily, Disp# 90 tab, Refills: 4, Pharmacy: [id number] Start Date: 06/24/23 Stop Date: 09/16/24 Status: Ordered atorvastatin 80 mg oral tablet Start: 06/17/22 12:11:00 EDT, 1 tab, PO, Daily, Disp# 90 tab, Refills: 3, Pharmacy: [id number] Start Date: 06/17/22 Stop Date: 06/12/23 [...] new pen needle with each injection., Pharmacy: [facility] Start Date: 07/16/22 Status: Ordered carvedilol 25 mg oral tablet Start: 04/28/23 14:41:00 EST, 0.5 tab, PO, bid Start Date: 04/28/23 Status: Ordered Cipro 500 mg oral tablet Start: 07/07/23 14:02:00 EDT, 1 tab, PO, q12h, Disp# 20 tab, Refills: 0, Pharmacy: [facility] Start Date: 07/07/23 Status: Ordered clopidogrel 75 mg oral tablet Start: 06/17/22 12:10:00 EDT, 1 tab, PO, Daily, Disp# 90 tab, Refills: 3, Pharmacy: [facility] Start Date: 06/17/22 Stop Date: 06/12/23 Status: Ordered Eliquis 5 mg oral tablet Start: 06/21/23 15:27:00 EDT, 1 tab, PO, bid, Disp# 180 tab, Refills: 3 Start Date: 06/21/23 Status: Ordered Entresto 24 mg-26 mg oral tablet Start: 02/23/23 14:53:00 EST, 2 tab, PO, bid, Disp# 180 tab, Refills: 3, Pharmacy: [facility] Start Date: 02/23/23 Status: Ordered gabapentin 100 mg oral capsule Start: 07/08/23 11:07:00 EDT, 1 cap, PO, Daily, Disp# 90 cap, Refills: 4, Pharmacy: [facility] Start Date: 07/08/23 Stop Date: 09/30/24 Status: Ordered Jardiance 25 mg oral tablet Start: 10/26/22 16:11:00 EDT, 1 tab, PO, Daily, Disp# 90 tab, Refills: 2, Pharmacy: [facility] 2[facility] Start Date: 10/26/22 Stop Date: 07/23/23 Status: Ordered Lantus Solostar Pen 100 units/mL subcutaneous solution Start: 03/01/23 9:39:00 EST, 50 unit =, subQ, Daily, Disp# 15 mL, Refills: 2, Brand Medically Necessary, Pharmacy: [id number] Start Date: 03/01/23 Status: Ordered Lasix 20 mg oral tablet Start: 06/24/23 16:22:00 EDT, 1 tab, PO, Daily, Disp# 90 tab, Refills: 4, Pharmacy: [facility] 2229 Start Date: 06/24/23 Stop Date: 09/16/24 Status: Ordered metFORMIN 1000 mg oral tablet Start: 06/17/22 12:09:00 EDT, 1 tab, PO, bid, Disp# 180 tab, Refills: 3, Pharmacy: [id number] Start Date: 06/17/22 Stop Date: 06/12/23 Status: [...] Daily, Disp# 135 tab, Refills: 3, Pharmacy: [facility] Start Date: 12/20/22 Stop Date: 12/15/23 Status: Ordered spironolactone 25 mg oral tablet Start: 10/26/22 16:11:00 EDT, 2 tab, PO, bid, Disp# 360 tab, Refills: 3, Pharmacy: [id number] Start Date: 10/26/22 Stop Date: 10/21/23 Status: Ordered traMADol 50 mg oral tablet Start: 07/07/23 14:02:00 EDT, 1 tab, PO, q4h, Disp# 20 tab, Refills: 0, PRN: as needed for pain, Pharmacy: [facility] Start Date: 07/07/23 Status: Ordered Mental Status 07/07/23 Barriers to Learning one year None evide nt Mandatory Health Literacy Documentation Yes Health Literacy Communication Barriers N ever Primary Language Kinyarwanda Problem List Condition Confirmation Course Effective Dates [...] Active History of cataract Confirmed Active S/P amputation of lesser toe Confirmed Active S/P femoral-tibial bypass Confirmed Active [...] Diagnosis Diagnosis Type Effective Dates Health Status Clinical Service Informant Toe infection Discharge Diagnosis 07/07/23 S/P amputation of lesser toe Discharge Diagnosis 07/07/23 Paresthesia of left foot Discharge Diagnosis 07/08/23 Non-Specified Procedures Procedure Date Related Diagnosis Body Site Status LLE Angiogram w/ pulse spray thrombolysis SFA and Pop, DRY LUMBER GRADER stent SFA and Pop 06/01/22 Completed Doppler [...] Reduced cardiac output via thermodilution. 5performed at [facility] Extensive left lower extremity arterial atherosclerosis. Patent [...] to oldest [Reference Range]: 1 Heart Rate 80 bpm (07/07/23 1:33 PM) Blood Pressure 144/80mmHg (07/07/23 1:33 PM) Cuff Pulse Pressure 64 mmHg (07/07/23 1:33 PM) BP Location # 1 Left Arm (07/07/23 1:33 PM) Social History Social History Type Response [...] Safety Implantable Status Assigning Authority Unknown Unknown [email or web address] [id number] Unknown 12/25/26 Unknown Unknown Active Unknown [facility] Outpt Note * JUSTUS Pnia Lynn: PERFORM Event Display: [facility] Outpt Note Authored Date: [id number] [facility] OUTPATIENT NOTE Name: ELLEN ALVAREZ Patient Number: [id number] : 1950 Date of Service: 07/07/2023 Chief Complaint: _Follow-up after left second toe amputation and foot debridement HPI: _Mr. Alvarez is an elderly male presents to Dr. Ambriz vascular surgery clinic today for a 2-week follow-up visit regarding his left second toe amputation and debridement first toe which occurred at [facility]. As you may remember, patient is status post left leg femoral artery to tibial artery reversed GSV bypass performed at [facility] due to an ischemic left foot, with gangrene of the toes of the left foot. While most of the gangrenous areas did resolve after revascularization, his left second toe remained necrotic and his first toe had a large eschar which needed removed. Patient states that he was doing well postoperatively until a few days ago, when he noted that his left great toe was more swollen and reddened in appearance. He states he has been having increased pain in the left great toe as well. He states that the home nurses told him thatit was looking well. He denies any fevers chills nausea vomiting or other systemic symptoms. He states that the remainder of his leg and foot feel fine. Current Home Meds: (Last Updated 07/06 14:03) amLODIPine (amLODIPine 5 mg oral tablet) 5 [...] congestion) Cats(Nasal congestion) Past Medical History: Problems: S/P amputation of lesser toe Gangrene of toe Toe infection Atherosclerosis Sequelae [...] of substance use OBJECTIVE Vitals: Last Updated 07/07/23 13:38 Date Temp BP Location Pulse RR SpO2 Pain 07/07/23 0 07/07/23 144/80 Left Arm 80 98 06/20/23 176/78 Left Arm 75 98 Vital Signs are the last 3 documented. No Orthostatic Data Available Height and Weight: Last Updated 05/16/23 12:44 Date BMI Wt(kg) Wt(lb) Method Ht(cm) (ft-in) Method 05/16/23 98.1 216 Standing Scale 04/20/23 29.44 95.9 211 Standing Scale 180.5 5-11 Standing 03/25/23 102.6 226 Bed Scale Heights and Weights are the last 3 documented. Physical Exam Constitutional: In general patient is a healthy-appearing well-nourished well- developed elderly male in no distress. His left PT pulses +2, DP pulses +1. His toes in the left foot have brisk capillary refill. His second toe amputation site is clean dry and intact with sutures, these were removed today without wound dehiscence. His great toe is bulbous and erythematous and warm to touch to the base of the great toe. This does not extend proximally. There is no overt odor, however, the debridement wound to the medial side of the toe and the distal end of the toe do appear to be very moist. There is some slough around the edge of the wound, and the wound bed itself appears to be pink. The toe is painful for the patient. ASSESSMENT: _ PLAN: _ 1 ) _status post left second toe amputation and debridement of great toe Overall the patient's second toe amputation is healing as expected. His the distal pulses remain palpable. His great toe, however, does appear to be cellulitic and the wound beds are moist, concerning for infection. At this point he has no systemic symptoms that would necessitate urgent intervention. We will start him on oral antibiotics with Cipro 500 mg twice daily to take until his next appointment here in 1 week for reevaluation. Additionally we will give him tramadol 50 mg 1 pill every 4 hours as needed pain, 20 tablets, to use for pain control in addition to Tylenol at home until his office appointment next week. He is advised to call us if his symptoms should worsen, and [facility] if he should develop a fever or any nausea, vomiting, or other systemic symptoms. Patient is agreeable to this plan. Thank you for letting us participate in the care of this patient. Electronic Signature on File CC: Elmer Fraire MD [address] [place] [address] CC: Tim Jimenez MD [address] [place] [address] * Electronically Reviewed/Signed by: Shanel Pina PA-C Author Signature Dt/Tm:07/07/2023 02:46 PM [facility] [place] [place] [address] LM Patient Care team information Care Team Personnel Name: MICHAEL Pineda Terra L Position: Nurse Pract - Vascular Surg Member Role: Lifetime Relationship Address: Address: [address] [facility] [place] [address] [place] Name: Meet Buenrostro Todd Position: Pharmacist Schedule II Member Role: Pharmacy - Lifetime Address: Address: [address] [place] [address] [place] Name: MD Fraire Christopher Position: Physician - Family Med Member Role: Primary Care Provider Address: Address: [address] [place] [address] [place] Name: JUSTUS Pina Lynn Position: Physician Heavy Coil Winder Exempt - Vasc Surg Member Role: Lifetime Relationship Address: Address: [address] [place] [address], [place] [address] [place] Name: Meet Nagy Ashley Position: Pharmacist Schedule II Member Role: Pharmacy - Lifetime
[2023-07-12 14:38] LABS: A calco-baum cmplx NotReported Not Detected (NotDetected); Bact fragilis Not Reported Not Detected (NotDetected); Blood Culture Id Panel See PCR Comment (NotDetected); C auris Not Reported Not Detected (NotDetected); Calbicans Not Reported Not Detected (NotDetected); Candida glabrata Not Reported Not Detected (NotDetected); Candida krusei Not Reported Not Detected (NotDetected); Cneoformans/gatti Not Reported Not Detected (NotDetected); Cparapsilosis Not Reported Not Detected (NotDetected); E cloacae compx Not Reported Not Detected (NotDetected); Efaecalis Not Reported Not Detected (NotDetected); Efaecium Not Reported Not Detected (NotDetected); Enterobacterales Not Reported Not Detected (NotDetected); Escherichia coli Not Reported Not Detected (NotDetected); H influenzae Not Reported Not Detected (NotDetected); K aerogenes Not Reported Not Detected (NotDetected); Koxytoca Not Reported Not Detected (NotDetected); Kpneumoniae grp Not Reported Not Detected (NotDetected); Lmonocyt Not Reported Not Detected (NotDetected); N meningitidis Not Reported Not Detected (NotDetected); P aeruginosa Not Reported Not Detected (NotDetected); Proteus spp Not Reported Not Detected (NotDetected); Salmonella spp Not Reported Not Detected (NotDetected); Smarcescens Not Reported Not Detected (NotDetected); Staph lugdunensis Not Reported Not Detected (NotDetected); Staph spp. Not Reported DETECTED (NotDetected); Staphaureus Not Reported DETECTED (NotDetected); Staphepi Not Reported Not Detected (NotDetected); Stenmaltophilia Not Reported Not Detected (NotDetected); Strep agal(GrpB) Not Reported Not Detected (NotDetected); Strep pneum Not Reported Not Detected (NotDetected); Strep pyog (GrpA) Not Reported Not Detected (NotDetected); Strep spp Not Reported Not Detected (NotDetected)
[2023-07-12 14:44] LABS: Staphylococcus spp. DETECTED (NotDetected); mecAC+MREJ Resistant Gene MRSA DETECTED (NotDetected)
[2023-07-12 23:47] LABS: BUN Creatinine Ratio 26.4 (10-20); Calcium 8.6 mg/dl (8.6-10.3); Est GFR (African American) 28.3 ml/min; Est GFR (Non-African American) 24.4 ml/min; Magnesium 1.7 mg/dl (1.7-2.4); Potassium 3.8 mmol/L (3.5-5.1)
--- NOTE | 2023-07-12 23:57 | Communication Note ---
Date of Service: July 12, 2023 Notified by nursing that patient had increasing tachycardia, 120-130s. I ordered a small bolus of 500ml as patient has had poor PO intake today, mindful of p eve's CHF. He eventually flipped to atrial fibrillation with RVR, rate reaching 150s. Initially gave 1x dose of digoxin, rate without significant change. Started amio drip and patient converted to sinus tachycardia (rate ~100). Patient also had little urine output, elizondo placed to monitor output which continues to be minimal.
[2023-07-13] MEDS: MAGNESIUM SULFATE / D5W 1 GM/100 ML BAG IV SCH (00:12)
[2023-07-13] MEDS: DIGOXIN 250 MCG in SYRINGE 9 ML IV STA (00:41)
[2023-07-13 00:42] LABS: Basophils # (auto) 0.04 K/uL (0.00-0.20); Basophils % (auto) 0.4 %; Echinocytes 1+; Eosinophils # (auto) 0.07 K/uL (0.00-0.50); Eosinophils % (auto) 0.8 %; Hematocrit (blood only) 33.3 % (42.0-52.0); Hemoglobin 11.1 g/dl (14.0-18.0); Immature Granulocytes # (auto) 0.47 K/uL (0.01-0.20); Immature Granulocytes % (auto) 5.2 %; Lymphocytes # (auto) 0.47 K/uL (1.20-3.40); Lymphocytes % (auto) 5.2 %; Mean Corpuscular Hemoglobin 25.8 pg (25.0-34.0); Mean Corpuscular Hgb Conc 33.3 g/dL (32.0-36.0); Mean Corpuscular Volume 77.4 fL (80.0-100.0); Mean Platelet Volume 11.6 fL (9.4-12.4); Monocytes % (auto) 3.3 %; Neutrophils # (auto) 7.77 K/uL (1.40-6.50); Neutrophils % (auto) 85.1 %; Platelet Count 120 K/uL (130-400); RDW Coefficient of Variation 14.9 % (11.5-14.5); RDW Standard Deviation 41.2 fL (36.4-46.3); White Blood Count 9.12 K/ul (4.8-10.8)
[2023-07-13] MEDS ORDERED: 0.2 MICRON FILTER SET 1 EACH IV STA (01:16)
[2023-07-13] MEDS ORDERED: STAT IV Infusion **Titration per Protocol STA (01:16)
[2023-07-13] MEDS ORDERED: AMIODARONE IV BOLUS & DRIP IV STA (01:16)
[2023-07-13] MEDS: AMIODARONE / D5W 150 MG/100 ML BAG IV STA (01:36)
[2023-07-13] MEDS: AMIODARONE / D5W 360 MG/200 ML BAG IV ONE (01:47)
[2023-07-13 07:09] LABS: Basophils # (auto) 0.06 K/uL (0.00-0.20); Basophils % (auto) 0.5 %; Dohle Bodies 2+; Echinocytes 1+; Eosinophils # (auto) 0.09 K/uL (0.00-0.50); Eosinophils % (auto) 0.8 %; Hematocrit (blood only) 32.4 % (42.0-52.0); Hemoglobin 10.7 g/dl (14.0-18.0); Immature Granulocytes # (auto) 0.29 K/uL (0.01-0.20); Immature Granulocytes % (auto) 2.6 %; Lymphocytes # (auto) 0.46 K/uL (1.20-3.40); Lymphocytes % (auto) 4.1 %; Mean Corpuscular Hemoglobin 25.5 pg (25.0-34.0); Mean Corpuscular Volume 77.1 fL (80.0-100.0); Mean Platelet Volume 11.2 fL (9.4-12.4); Monocytes # (auto) 0.53 K/uL (0.11-0.59); Monocytes % (auto) 4.7 %; Neutrophils # (auto) 9.88 K/uL (1.40-6.50); Neutrophils % (auto) 87.3 %; Nucleated RBC # (auto) 0.02 K/uL (0.00-0.12); Nucleated RBC % (auto) 0.2 %; Platelet Count 129 K/uL (130-400); RDW Coefficient of Variation 14.3 % (11.5-14.5); White Blood Count 11.31 K/ul (4.8-10.8)
[2023-07-13 07:14] LABS: Albumin Level 2.5 gm/dl (3.4-5.0); BUN Creatinine Ratio 29.6 (10-20); Calcium 8.4 mg/dl (8.6-10.3); Creatinine Clr Calc Pharmacy 31.9 ml/min; Est GFR (African American) 31.4 ml/min; Est GFR (Non-African American) 27.1 ml/min; Magnesium 2.2 mg/dl (1.7-2.4); Phosphorus 3.6 mg/dl (2.5-4.9)
[2023-07-13 07:17] LABS: INR 1.1 (0.9-1.1); Partial Thromboplastin Ratio 2.4; Partial Thromboplastin Time 65 Seconds (21-31); Prothrombin Time 11.9 Seconds (9.0-12.0)
[2023-07-13] MEDS: AMIODARONE / D5W 360 MG/200 ML BAG IV SCH (09:13)
--- NOTE | 2023-07-13 10:03 | Cardiology Consultation ---
Date of Consultation July 13, 2023 Assessment & Plan (1) Atrial fibrillation: (2) Supraventricular tachycardia: (3) S/P CABG x 2: (4) Cardiomyopathy: (5) CAD (coronary artery disease): Plan 1. Atrial fibrillation: Paroxysmal. He has remote history of atrial fibrillation at the time of his bypass surgery. None documented since. He does not appear to have been notably symptomatic last night but did have some elevated ventricular rates. Possibly related to his acute illness. I think amiodarone is a good idea in the short term. This may reduce his chance of recurrence while he deals with his other illnesses. In the long run this may not be necessary. I would also reinitiate his carvedilol at the earliest opportunity. Perhaps we can start with a lower dose while he waits his surgery. Incidentally already on appropriately dosed apixaban for atrial fibrillation due to his peripheral vascular disease. 2. Supraventricular tachycardia: He does seem to have another reentrant rhythm. Review of his telemetry suggests that at times his heart rate is just over 100 beats per minute and this appears to be reentrant. I do not think there is any other particular treatment that is required other than that noted above. 3. Cardiomyopathy: He has a history of an ischemic cardiomyopathy that responded well to both revascularization and medical therapy. Unfortunately, some of his medications are on hold due to presentation that included hypotension. Will restart low-dose carvedilol with the intention of adding all his medications once his hemodynamics stabilize. 4. Congestive heart failure: His x-ray was abnormal but more indicative of a pneumonia rather than decompensated heart failure. Diuretics were discontinued at the time of admission in favor of volume resuscitation. We will have to be cautious with additional volume administration. 5. Coronary artery disease: Status post surgical revascularization in 2021. MOSLEY to LAD and saphenous vein graft to OM. No current symptoms suggestive of coronary insufficiency or angina. Heparin appears to have been started in lieu of apixaban. This is anticipation of his upcoming surgery. Previously on clopidogrel as well. continuing on high-dose atorvastatin. 6. Peripheral vascular disease: Status post left femoral to posterior tibial bypass 02/2023. Currently planning on left great toe amputation 07/15/2023 History of Present Illness Reason for Consultation: Atrial fibrillation Requesting Physician: Alicja Attending Physician: Anibal Tobin History of Present Illness The patient is a 72-year-old gentleman with an extensive history of coronary and peripheral vascular disease who currently is admitted to the hospital for left foot infection. The patient has had some difficulty with the left foot recently. He underwent a toe operation in May this year. He continues to have significant pain of the left foot and this is limited his activity. Currently scheduled for another operation later this week. Overnight the patient was noted to have atrial fibrillation with elevated ventricular rates on telemetry. He was started on an amiodarone infusion and heparin was also started this morning. The he had atrial fibrillation for approximately 2 hours before converting back to a sinus rhythm. The patient was unaware of these events. He was not aware of any palpitations. No symptoms of chest pain overnight. Unfortunately, he is quite uncomfortable and was recently medicated. He did not want to provide much history and seems very frustrated and angry about his current medical condition. As noted above his infection is limited his activity recently. He does report some dyspnea at times. No sense of palpitations prior to admission. Allergies Allergy/AdvReac Type Severity Reaction Status Date / Time cat dander Allergy Intermediate CONGESTION Verified 07/12/23 02:04 Home Medications Medication Instructions Recorded Confirmed Type atorvastatin 80 mg tablet (Lipitor) 80 mg PO QAM 05/15/19 07/12/23 History clopidogrel 75 mg tablet 75 mg PO QAM 05/15/19 07/12/23 History sacubitril 24 mg-valsartan 26 mg 1 tab PO BID 12/07/21 07/12/23 History tablet (Entresto) empagliflozin 25 mg tablet 25 mg PO QAM 05/30/22 07/12/23 History (Jardiance) carvedilol 12.5 mg tablet 12.5 mg PO BID #180 tabs 08/17/22 07/12/23 Rx amlodipine 5 mg tablet (Norvasc) 5 mg PO QAM 05/27/23 07/12/23 History furosemide 20 mg tablet 20 mg PO QAM 05/27/23 07/12/23 History gabapentin 100 mg capsule 100 mg PO DAILY 05/27/23 07/12/23 History apixaban 5 mg tablet (Eliquis) 5 mg PO BID 06/01/23 07/12/23 History insulin glargine 100 unit/mL (3 44 unit subcut QAM 06/01/23 07/12/23 History mL) subcutaneous pen (Lantus Solostar U-100 Insulin) sertraline 50 mg tablet (Zoloft) 75 mg PO QAM 06/01/23 07/12/23 History oxycodone-acetaminophen 5 mg-325 1 tab PO Q8H PRN pain #20 tabs 06/16/23 07/12/23 Rx mg tablet (Percocet) spironolactone 25 mg tablet 25 mg PO QAM 06/16/23 07/12/23 History (Aldactone) metformin 1,000 mg tablet 1,000 mg PO BID 07/12/23 07/12/23 History Patient History Medical History History of anemia History of anxiety History of alcohol abuse started 1965, quit 1999 Hx of drug abuse started 1965, quit 1999 "used every drug known to man">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, stayed in for 13 years IV drug abuse hx-quit in 1981 History of hepatitis B hx IV drug use Hepatitis C virus has had since the late s>no tx, "never had any trouble with it" Heart failure with mid-range ejection fraction Follows with [facility] EF 50-55% per 05/2022 ECHO Type 2 diabetes mellitus HTN (hypertension) Surgical History Hx of cardiac catheterization 06/2021 [facility] History of open reduction and internal fixation (ORIF) procedure rt elbow and lt wrist>hardware intact Hx of colonoscopy History of left knee surgery 1988-tibial plateau reconstruction History of eye surgery retina History of cataract extraction rt/lt Social History Smoking Status: Current every day smoker Tobacco Type: Cigarettes Cigarettes Per Day: 12 per day >>advised; Second Hand Exposure: Yes (hx); Do You Dip or Chew Tobacco: No; Hx Alcohol Use: No Hx Substance Use: Yes Last Used Substance Other:: quit 1999-stated "used every drug known to man" Substance Use Type Other:: IV drugs Preferred Language: Maori Communication Ability: Effective Ash Handler Required: No Beliefs That Will Affect Care: None Current Living Situation: Alone How many Children do You have: 1 Feels Safe at Home: Yes Assistive Devices: Glasses Review of Systems Review of Systems: Per HPI Physical Exam Physical Exam: Patient is somewhat drowsy. However, he was responsive and answer questions appropriately. HEENT: Pupils are equal and reactive to light and accommodation. Extraocular movements are intact. The sclerae are anicteric. Neuro: Cranial nerves intact Lungs: Clear to auscultation bilaterally. He has good air movement without use of accessory muscles. No rales wheezes or rhonchi. Cardiac: Heart demonstrates a regular rate and rhythm. Normal S1 and S2. No murmurs on examination. Extremities: No clubbing or cyanosis in the hands. Discoloration an eschar noted on the left foot primarily the toes. Skin: I did not appreciate any rashes on examination today. Results & Data Vital Signs (Past 12 Hours) Vital Signs Temp Pulse Pulse Resp BP Pulse Ox O2 Del Method 07/13/23 07:38 36.5 C 111 H 19 118/77 92 Room Air 07/13/23 05:23 102 H 28 H 115/77 92 Room Air 07/13/23 04:02 119 H 30 H 127/84 96 Nasal Cannula 07/13/23 03:13 102 H 28 H 133/82 97 Nasal Cannula 07/13/23 02:16 37.6 C H 106 H 29 H 131/82 97 Nasal Cannula 07/13/23 01:48 115 H 30 H 116/78 96 Nasal Cannula 07/13/23 01:38 141 H 30 H 108/67 95 Nasal Cannula 07/13/23 01:13 154 H 29 H 109/72 95 Nasal Cannula 07/13/23 00:41 157 H 07/13/23 00:41 157 H 123/76 07/13/23 00:27 155 H 29 H 128/83 94 Nasal Cannula 07/13/23 00:10 140 H 28 H 104/72 95 Nasal Cannula 07/13/23 00:00 128 H 25 H 111/75 95 Nasal Cannula 07/12/23 23:51 122 H 27 H 102/61 94 Nasal Cannula 07/12/23 23:43 153 H 27 H 98/63 L 07/12/23 23:25 36.6 C 160 H 30 H 107/68 95 Nasal Cannula 07/12/23 23:15 165 H 30 H 106/65 96 Nasal Cannula 07/12/23 23:06 142 H 35 H 99/63 L 96 Nasal Cannula 07/12/23 23:01 162 H 07/12/23 22:50 139 H 30 H 122/76 89 L Nasal Cannula 07/12/23 22:31 36.3 C L 132 H 32 H 118/82 91 Room Air 07/12/23 21:58 97 H O2 Flow Rate 07/13/23 07:38 07/13/23 05:23 07/13/23 04:02 2 07/13/23 03:13 2 07/13/23 02:16 2 07/13/23 01:48 2 07/13/23 01:38 2 07/13/23 01:13 2 07/13/23 00:41 07/13/23 00:41 07/13/23 00:27 3 07/13/23 00:10 3 07/13/23 00:00 3 07/12/23 23:51 3 07/12/23 23:43 07/12/23 23:25 4 07/12/23 23:15 4 07/12/23 23:06 4 07/12/23 23:01 07/12/23 22:50 2 07/12/23 22:31 07/12/23 21:58 Laboratory Results Abnormal Lab Results 07/12/23 07/12/23 07/12/23 00:24 11:13 11:32 WBC RBC Hgb Hct MCV MCH MCHC RDW Std Deviation RDW Coeff of Josh Plt Count MPV Immature Gran % (Auto) Neut % (Auto) Lymph % (Auto) [place] % (Auto) Eos % (Auto) Baso % (Auto) Neut # (Auto) Lymph # (Auto) [place] # (Auto) Eos # (Auto) Baso # (Auto) Immature Gran # (Auto) Absolute Nucleated RBC Nucleated RBC % (auto) Dohle Bodies Echinocytes PT INR APTT PTT Ratio Heparin Anti-Xa, Unfract 0.37 Sodium Potassium Chloride Carbon Dioxide Anion Gap BUN Creatinine Est Cr Clr Drug Dosing Est GFR ( Amer) Est GFR (Non-Af Amer) BUN/Creatinine Ratio Glucose POC Glucose 173 H Calcium Phosphorus Magnesium Albumin Staphylococcus sp PCR DETECTED A Staph aureus (PCR) DETECTED A mecA/C & MREJ Resist Gene MRSA DETECTED A* Bld Cult ID Panel PCR See PCR Comment 0507/12/23 07/12/23 16:11 20:17 23:05 WBC 9.12 RBC 4.30 L Hgb 11.1 L Hct 33.3 L MCV 77.4 L MCH 25.8 MCHC 33.3 RDW Std Deviation 41.2 RDW Coeff of Josh 14.9 H Plt Count 120 L MPV 11.6 Immature Gran % (Auto) 5.2 Neut % (Auto) 85.1 Lymph % (Auto) 5.2 [place] % (Auto) 3.3 Eos % (Auto) 0.8 Baso % (Auto) 0.4 Neut # (Auto) 7.77 H Lymph # (Auto) 0.47 L [place] # (Auto) 0.30 Eos # (Auto) 0.07 Baso # (Auto) 0.04 Immature Gran # (Auto) 0.47 H Absolute Nucleated RBC Nucleated RBC % (auto) Dohle Bodies Echinocytes 1+ PT INR APTT PTT Ratio Heparin Anti-Xa, Unfract Sodium 131 L Potassium 3.8 Chloride 101 Carbon Dioxide 16 L Anion Gap 14 H BUN 67 H Creatinine 2.54 H Est Cr Clr Drug Dosing 32.0 Est GFR ( Amer) 28.3 Est GFR (Non-Af Amer) 24.4 BUN/Creatinine Ratio 26.4 H Glucose 176 H POC Glucose 222 H 180 H Calcium 8.6 Phosphorus Magnesium 1.7 Albumin Staphylococcus sp PCR Staph aureus (PCR) mecA/C & MREJ Resist Gene Bld Cult ID Panel PCR 07/13/23 07/13/23 06:19 07:08 WBC 11.31 H RBC 4.20 L Hgb 10.7 L Hct 32.4 L MCV 77.1 L MCH 25.5 MCHC 33.0 RDW Std Deviation 40.0 RDW Coeff of Josh 14.3 Plt Count 129 L MPV 11.2 Immature Gran % (Auto) 2.6 Neut % (Auto) 87.3 Lymph % (Auto) 4.1 [place] % (Auto) 4.7 Eos % (Auto) 0.8 Baso % (Auto) 0.5 Neut # (Auto) 9.88 H Lymph # (Auto) 0.46 L [place] # (Auto) 0.53 Eos # (Auto) 0.09 Baso # (Auto) 0.06 Immature Gran # (Auto) 0.29 H Absolute Nucleated RBC 0.02 Nucleated RBC % (auto) 0.2 Dohle Bodies 2+ Echinocytes 1+ PT 11.9 INR 1.1 APTT 65 H PTT Ratio 2.4 Heparin Anti-Xa, Unfract 0.30 Sodium 128 L Potassium 4.0 Chloride 100 Carbon Dioxide 16 L Anion Gap 12 H BUN 69 H Creatinine 2.33 H Est Cr Clr Drug Dosing 31.9 Est GFR ( Amer) 31.4 Est GFR (Non-Af Amer) 27.1 BUN/Creatinine Ratio 29.6 H Glucose 243 H POC Glucose 262 H Calcium 8.4 L Phosphorus 3.6 Magnesium 2.2 Albumin 2.5 L Staphylococcus sp PCR Staph aureus (PCR) mecA/C & MREJ Resist Gene Bld Cult ID Panel PCR Diagnostic Findings Echocardiogram 06/09/2022: Normal LV systolic function ejection fraction 50- 55%. Hypokinesis to akinesis of the inferolateral wall. Hypokinesis of the inferior wall. Chest x-ray obtained 07/12/2023: Patchy infiltrates throughout the left lung. Possible multifocal pneumonia. PG Care Time/CCT Total # of Minutes Spent Total Time Spent with Patient: Total time spent is greater than 50% in coordination of care (as documented) at patient's floor/unit and/or counseling patient: Coding Level of Care Code 23542 INT INP/OBS CARE 3/75MIN Diagnoses Atrial fibrillation I48.91 Supraventricular tachycardia I47.10 S/P CABG x 2 Z95.1 Cardiomyopathy I42.9 CAD (coronary artery disease) I25.10
[2023-07-13] MEDS: SODIUM CHLORIDE 0.65% NA SOLN 45 ML (OCEAN) PRN (11:25)
--- NOTE | 2023-07-13 11:52 | Electrocardiogram Report ---
Test Reason : Blood Pressure : / mmHG Vent. Rate : 158 BPM Atrial Rate : 170 BPM P-R Int : 000 ms QRS Dur : 120 ms QT Int : 302 ms P-R-T Axes : 000 -42 129 degrees QTc Int : 489 ms Atrial fibrillation with rapid ventricular response with premature ventricular or aberrantly conducte d complexes Left axis deviation Non-specific intra-ventricular conduction delay Abnormal ECG When compared with ECG of 12-JUL-2023 00:14, Atrial fibrillation has replaced Sinus rhythm Borderline criteria for Anterior infarct are no longer Present Confirmed by Elmer Ring ([id number]) on 07/13/2023 11:52:28 AM Referred By: REFERRED SELF Confirmed By:Ovi Ring
[2023-07-13] MEDS: carvediloL 3.125 MG TAB PO SCH (17:54)
--- NOTE | 2023-07-13 22:24 | Hospitalist Progress Note ---
Date of Service July 13, 2023 Assessment & Plan (1) 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: Plan: sepsis secondary to diabetic foot ulcer /gangrene/status post recent second toe amputation and great toe debridement for peripheral artery disease by Dr. Ambriz performed on 06/16/[address] Ambriz plans for revision of great toe ischemia 07/15/2023 hypotension in the ER Lowest blood pressure recorded was 80/53, small fluid bolus due to HFrEF (40-45%) Daptomycin IV and cefepime IV Initial lactate 5.7, with follow-up 4.[address] on heparin drip Temporarily hold clopidogrel If no immediate procedure to be performed, patient can resume outpatient dosing of apixaban clopidogrel. On 07/12, Placed on contact precautions due to MRSA. (2) DM (diabetes mellitus): Plan: Diabetes mellitus- Patient will initially be n.p.o., however, if no procedure to be performed, would resume diabetic diet Reduce glargine from 44 to 20 units subcu every morning Hold metformin and Jardiance Placed on Accu-Cheks with NovoLog SSI typically on gabapeitin for neruopathy (3) Heart failure with ejection fraction improved from reduced range to preserved range: Plan: CAD and Cardiomyopathy s/p CABG with milly MOSLEY (kushal operative) Typically sees [facility] usually on asa, atorvastatin, Coreg 12.5, Initial troponin 39.4, with follow-up 37.4 suspect demand ischemia (4) Acute kidney injury superimposed on CKD: Plan: Acute kidney injury superimposed on CKD-3 Creatinine 2.48, with base 1.27- Stop spironolactone, Jardiance and furosemide Status post 500 mill bolus normal saline from the ED NSS at 80 mL/h x 1 L Mild hyponatremia is noted we will continue to follow as holding diuretics (5) Anxiety: (6) Tobacco abuse: Plan: Counseled regarding cessation Admission and Anticipated Discharge Date Admission Date: July 12, 2023 Subjective Patient reports no new symptoms. Review of Systems Review of Systems: All systems reviewed & are unremarkable except as noted in HPI & below Physical Exam Physical Exam: Patient is somewhat drowsy. However, he was responsive and answer questions appropriately. HEENT: Pupils are equal and reactive to light and accommodation. Extraocular movements are intact. The sclerae are anicteric. Neuro: Cranial nerves intact Lungs: Clear to auscultation bilaterally. He has good air movement without use of accessory muscles. No rales wheezes or rhonchi. Cardiac: Heart demonstrates a regular rate and rhythm. Normal S1 and S2. No murmurs on examination. Extremities: No clubbing or cyanosis in the hands. Discoloration an eschar noted on the left foot primarily the toes. Skin: I did not appreciate any rashes on examination today. Results & Data Results & Data Vital Signs (Past 12 Hours) Vital Signs Temp Pulse Pulse Pulse Resp BP BP 07/13/23 22:15 36.6 C 88 20 149/89 H 07/13/23 19:09 36.6 C 105 H 20 140/87 07/13/23 16:19 78 07/13/23 15:58 36.5 C 65 18 150/69 H 07/13/23 11:13 36.4 C L 85 20 144/79 H 07/13/23 10:54 94 H 07/13/23 10:45 Pulse Ox O2 Del Method 07/13/23 22:15 93 Room Air 07/13/23 19:09 96 Room Air 07/13/23 16:19 07/13/23 15:58 96 Room Air 07/13/23 11:13 94 Room Air 07/13/23 10:54 07/13/23 10:45 Room Air PG Care Time/CCT Total # of Minutes Spent Total Time Spent with Patient: Total time spent is greater than 50% in coordination of care (as documented) at patient's floor/unit and/or counseling patient: Coding Level of Care Code 85124 SUB INP/OBS CARE 2/35MIN Diagnoses 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 I73.9 DM (diabetes mellitus) E11.9 Heart failure with ejection fraction improved from reduced range to preserved range I50.32 Acute kidney injury superimposed on CKD N17.9; N18.9 Anxiety F41.9 Tobacco abuse Z72.0
[2023-07-13] MEDS: DAPTOmycin 675 MG in SYRINGE 0 ML IV SCH (23:06)
[2023-07-14 07:33] LABS: Hematocrit (blood only) 32.1 % (42.0-52.0); Hemoglobin 10.7 g/dl (14.0-18.0); Mean Corpuscular Hemoglobin 25.2 pg (25.0-34.0); Mean Corpuscular Hgb Conc 33.3 g/dL (32.0-36.0); Mean Corpuscular Volume 75.5 fL (80.0-100.0); Nucleated RBC # (auto) 0.02 K/uL (0.00-0.12); Nucleated RBC % (auto) 0.2 %; Platelet Count 126 K/uL (130-400); RDW Coefficient of Variation 14.8 % (11.5-14.5); RDW Standard Deviation 40.2 fL (36.4-46.3); Red Blood Count 4.25 M/uL (4.70-6.10); White Blood Count 12.86 K/ul (4.8-10.8)
[2023-07-14 07:51] LABS: Albumin Level 2.4 gm/dl (3.4-5.0); BUN Creatinine Ratio 39.5 (10-20); Calcium 8.7 mg/dl (8.6-10.3); Creatinine Clr Calc Pharmacy 40.4 ml/min; Est GFR (African American) 37.8 ml/min; Est GFR (Non-African American) 32.6 ml/min; Magnesium 2.4 mg/dl (1.7-2.4); Phosphorus 2.9 mg/dl (2.5-4.9); Potassium 3.7 mmol/L (3.5-5.1)
[2023-07-14 08:32] LABS: Basophils # (auto) 0.06 K/uL (0.00-0.20); Basophils % (auto) 0.5 %; Echinocytes 1+; Eosinophils # (auto) 0.14 K/uL (0.00-0.50); Eosinophils % (auto) 1.1 %; Immature Granulocytes # (auto) 0.55 K/uL (0.01-0.20); Immature Granulocytes % (auto) 4.3 %; Lymphocytes # (auto) 0.78 K/uL (1.20-3.40); Lymphocytes % (auto) 6.1 %; Monocytes # (auto) 0.85 K/uL (0.11-0.59); Monocytes % (auto) 6.6 %; Neutrophils # (auto) 10.48 K/uL (1.40-6.50); Neutrophils % (auto) 81.4 %; Polychromasia 2+; Toxic Granulation 1+
[2023-07-14 08:38] LABS: ANTI-Xa, UFH(UnfractionatedHep 0.14 IU/ml (0.3-0.7); INR 1.1 (0.9-1.1); Partial Thromboplastin Ratio 1.4; Partial Thromboplastin Time 38 Seconds (21-31)
[2023-07-14] MEDS: HEPARIN SOD (PORCINE) 1000 UNIT/ML IV ONE (09:56)
--- NOTE | 2023-07-14 15:38 | Communication Note ---
Date of Service: July 14, 2023 patient for toe amp tomorrow if cleared by medical service and cardiology.
[2023-07-14 16:17] LABS: ANTI-Xa, UFH(UnfractionatedHep 0.21 IU/ml (0.3-0.7)
--- NOTE | 2023-07-14 17:25 | Cardiology Progress Note ---
Date of Service July 14, 2023 Assessment & Plan (1) Atrial fibrillation: (2) Supraventricular tachycardia: (3) S/P CABG x 2: (4) Cardiomyopathy: (5) CAD (coronary artery disease): Plan 1. Atrial fibrillation: No further atrial fibrillation. Started on amiodarone and this can be continued for the short term. Switch to an oral formulation yesterday. I would recommend 400 mg twice daily for another week and then a reduced dose of 200 mg daily afterwards. Once his surgeon feels it is safe to resume his anticoagulation I would restart the apixaban 5 mg twice daily. 2. Supraventricular tachycardia: Occasional episodes of very slow SVT. Likely reentrant. No symptoms. Not a clinical concern. Probable improved with initiation of amiodarone. 3. Cardiomyopathy: He has a history of an ischemic cardiomyopathy that responded well to both revascularization and medical therapy. Unfortunately, some of his medications are on hold due to presentation that included hypotension. I would recommend increasing the carvedilol gradually to his prior dose of 12.5 mg twice daily as his blood pressure allows. Entresto and spironolactone can also be added in the postoperative. 4. Congestive heart failure: Will need to monitor symptoms closely for any decompensation. 5. Coronary artery disease: Status post surgical revascularization in 2021. MOSLEY to LAD and saphenous vein graft to OM. No current symptoms suggestive of coronary insufficiency or angina. Heparin appears to have been started in lieu of apixaban. This is anticipation of his upcoming surgery. Previously on clopidogrel as well. continuing on high-dose atorvastatin. 6. Peripheral vascular disease: Status post left femoral to posterior tibial bypass 02/2023. Currently planning on left great toe amputation 07/15/2023 Cardiology will not see him again formally. Please call for additional acute concerns during his hospitalization. Admission and Anticipated Discharge Date Admission Date: July 12, 2023 Subjective As I am the interview the patient was somewhat drowsy likely due to recent narcotic administration. He has a few questions and did not want to be distu rbed. Physical Exam Physical Exam: The patient was somnolent. Neuro: Cranial nerves intact Lungs: Normal respiratory effort Cardiac: Heart demonstrates a regular rhythm and normal rate. Results & Data Vital Signs (Past 12 Hours) Vital Signs Temp Pulse Pulse Resp BP Pulse Ox O2 Del Method 07/14/23 15:09 66 07/14/23 15:01 36.6 C 69 18 173/90 H 94 Room Air 07/14/23 11:16 36.6 C 76 18 171/83 H 93 Room Air 07/14/23 07:35 36.5 C 81 18 173/85 H 97 Room Air 07/14/23 07:25 80 Laboratory Results Abnormal Lab Results 07/14/23 07/14/23 07/14/23 15:20 16:14 20:07 WBC RBC Hgb Hct MCV MCH MCHC RDW Std Deviation RDW Coeff of Josh Plt Count MPV APTT PTT Ratio Heparin Anti-Xa, Unfract 0.21 L Sodium Potassium Chloride Carbon Dioxide Anion Gap BUN Creatinine Est Cr Clr Drug Dosing Est GFR ( Amer) Est GFR (Non-Af Amer) BUN/Creatinine Ratio Glucose POC Glucose 225 H 171 H Calcium Magnesium 07/14/23 07/15/23 07/15/23 22:48 06:54 07:08 WBC 12.06 H RBC 4.43 L Hgb 11.2 L Hct 33.0 L MCV 74.5 L MCH 25.3 MCHC 33.9 RDW Std Deviation 40.0 RDW Coeff of Josh 14.9 H Plt Count 106 L MPV 11.3 APTT 39 H PTT Ratio 1.4 Heparin Anti-Xa, Unfract 0.19 L 0.25 L Sodium 125 L Potassium 3.7 Chloride 96 L Carbon Dioxide 18 L Anion Gap 11 BUN 67 H Creatinine 1.56 H D Est Cr Clr Drug Dosing 51.9 Est GFR ( Amer) 51.0 Est GFR (Non-Af Amer) 44.0 BUN/Creatinine Ratio 42.9 H Glucose 185 H POC Glucose 189 H Calcium 8.6 Magnesium 2.1 07/15/23 11:19 WBC RBC Hgb Hct MCV MCH MCHC RDW Std Deviation RDW Coeff of Josh Plt Count MPV APTT PTT Ratio Heparin Anti-Xa, Unfract Sodium Potassium Chloride Carbon Dioxide Anion Gap BUN Creatinine Est Cr Clr Drug Dosing Est GFR ( Amer) Est GFR (Non-Af Amer) BUN/Creatinine Ratio Glucose POC Glucose 134 H Calcium Magnesium PG Care Time/CCT Total # of Minutes Spent Total Time Spent with Patient: Total time spent is greater than 50% in coordination of care (as documented) at patient's floor/unit and/or counseling patient: Coding Level of Care Code 54200 SUB INP/OBS CARE 2/35MIN Diagnoses Atrial fibrillation I48.91 Supraventricular tachycardia I47.10 S/P CABG x 2 Z95.1 Cardiomyopathy I42.9 CAD (coronary artery disease) I25.10
[2023-07-14] MEDS: AMIODARONE 200 MG TAB PO SCH (20:26)
--- NOTE | 2023-07-14 20:36 | Hospitalist Progress Note ---
Date of Service July 14, 2023 Assessment & Plan (1) 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: Plan: sepsis secondary to diabetic foot ulcer /gangrene/status post recent second toe amputation and great toe debridement for peripheral artery disease by Dr. Ambriz performed on 06/16/[address] Ambriz plans for revision of great toe ischemia 07/15/2023 hypotension in the ER Lowest blood pressure recorded was 80/53, small fluid bolus due to HFrEF (40-45%) Daptomycin IV and cefepime IV Initial lactate 5.7, with follow-up 4.[address] on heparin drip Temporarily hold clopidogrel If no immediate procedure to be performed, patient can resume outpatient dosing of apixaban clopidogrel. On 07/12, Placed on contact precautions due to MRSA. On 07/13, told nurse to limit use of opiates elda to his drowsiness. Patient will have surgeyr tomorrow. Reviewed cbc and bmp (2) DM (diabetes mellitus): Plan: Diabetes mellitus- Patient will initially be n.p.o., however, if no procedure to be performed, would resume diabetic diet Reduce glargine from 44 to 20 units subcu every morning Hold metformin and Jardiance Placed on Accu-Cheks with NovoLog SSI typically on gabapeitin for neruopathy (3) Heart failure with ejection fraction improved from reduced range to preserved range: Plan: CAD and Cardiomyopathy s/p CABG with MOSLEY, fib (kushal operative) Typically sees [facility] usually on asa, atorvastatin, Coreg 12.5, Initial troponin 39.4, with follow-up 37.4 suspect demand ischemia (4) Acute kidney injury superimposed on CKD: Plan: Acute kidney injury superimposed on CKD-3 Creatinine 2.48, with base 1.27- Stop spironolactone, Jardiance and furosemide Status post 500 mill bolus normal saline from the ED NSS at 80 mL/h x 1 L Mild hyponatremia is noted we will continue to follow as holding diuretics (5) Anxiety: (6) Tobacco abuse: Plan: Counseled regarding cessation Admission and Anticipated Discharge Date Admission Date: July 12, 2023 Subjective 72 yo male is slightly more drowsy today,. Review of Systems Review of Systems: All systems reviewed & are unremarkable except as noted in HPI & below Physical Exam Physical Exam: Patient is somewhat drowsy. However, he was responsive and answer questions appropriately. HEENT: Pupils are equal and reactive to light and accommodation. Extraocular movements are intact. The sclerae are anicteric. Neuro: Cranial nerves intact Lungs: Clear to auscultation bilaterally. He has good air movement without use of accessory muscles. No rales wheezes or rhonchi. Cardiac: Heart demonstrates a regular rate and rhythm. Normal S1 and S2. No murmurs on examination. Extremities: No clubbing or cyanosis in the hands. Discoloration an eschar noted on the left foot primarily the toes. Skin: I did not appreciate any rashes on examination today. Results & Data Results & Data Vital Signs (Past 12 Hours) Vital Signs Temp Pulse Pulse Resp BP Pulse Ox O2 Del Method 07/14/23 19:44 37.1 C 71 22 204/77 H 98 Room Air 07/14/23 15:09 66 07/14/23 15:01 36.6 C 69 18 173/90 H 94 Room Air 07/14/23 11:16 36.6 C 76 18 171/83 H 93 Room Air PG Care Time/CCT Total # of Minutes Spent Total Time Spent with Patient: Total time spent is greater than 50% in coordination of care (as documented) at patient's floor/unit and/or counseling patient: Coding Level of Care Code 06876 SUB INP/OBS CARE 2/35MIN Diagnoses 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 I73.9 DM (diabetes mellitus) E11.9 Heart failure with ejection fraction improved from reduced range to preserved range I50.32 Acute kidney injury superimposed on CKD N17.9; N18.9 Anxiety F41.9 Tobacco abuse Z72.0
[2023-07-14 23:50] LABS: ANTI-Xa, UFH(UnfractionatedHep 0.19 IU/ml (0.3-0.7)
[2023-07-15] MEDS: HEPARIN SOD (PORCINE) 1000 UNIT/ML IV ONE (01:28)
[2023-07-15 07:34] LABS: BUN Creatinine Ratio 42.9 (10-20); Calcium 8.6 mg/dl (8.6-10.3); Creatinine Clr Calc Pharmacy 51.9 ml/min; Magnesium 2.1 mg/dl (1.7-2.4); Potassium 3.7 mmol/L (3.5-5.1)
[2023-07-15 07:44] LABS: Hemoglobin 11.2 g/dl (14.0-18.0); Mean Corpuscular Hemoglobin 25.3 pg (25.0-34.0); Mean Corpuscular Hgb Conc 33.9 g/dL (32.0-36.0); Mean Corpuscular Volume 74.5 fL (80.0-100.0); Mean Platelet Volume 11.3 fL (9.4-12.4); Platelet Count 106 K/uL (130-400); RDW Coefficient of Variation 14.9 % (11.5-14.5); Red Blood Count 4.43 M/uL (4.70-6.10); White Blood Count 12.06 K/ul (4.8-10.8)
--- NOTE | 2023-07-15 07:44 | History & Physical Bridge Note ---
Date of Service July 15, 2023 History & Physical Bridge Note I have examined the patient, reviewed the History & Physical and in the interval since the performance of the History & Physical I have noted the following changes of clinical significance: no changes noted
[2023-07-15] MEDS ORDERED: AMIODARONE 200 MG TAB PO SCH (08:00)
[2023-07-15] MEDS ORDERED: PROPOFOL IV EMULSION 10 MG/ML 20 ML VIAL IV ONE (08:00)
[2023-07-15] MEDS ORDERED: ONDANSETRON INJ 2 MG/ML 2 ML VIAL ONE (08:00)
[2023-07-15] MEDS ORDERED: fentaNYL citrate PF 100 MCG/2 ML VIAL ONE (08:00)
[2023-07-15] MEDS ORDERED: LIDOCAINE 2% 2 ML VIAL/AMP(20MG/ML) INFIL ONE (08:00)
[2023-07-15 08:03] LABS: ANTI-Xa, UFH(UnfractionatedHep 0.25 IU/ml (0.3-0.7); Partial Thromboplastin Ratio 1.4; Partial Thromboplastin Time 39 Seconds (21-31)
--- NOTE | 2023-07-15 10:26 | Anesthesiology Consultation ---
Date of Service July 15, 2023 Assessment & Plan Chart Review Chart Review: Acceptable Risk for Surgery Consults Requested none History Surgery Operation Date: 07/15/23 10:30 Proposed Procedures p Left Great Toe Amputation - Bhavin Ambriz MD Height/Weight Height: 6 ft Weight: 94.7 kg Allergies Allergy/AdvReac Type Severity Reaction Status Date / Time cat dander Allergy Intermediate CONGESTION Verified 07/12/23 02:04 Medications Home Medications Medication Instructions Recorded Confirmed Last Taken atorvastatin 80 mg tablet (Lipitor) 80 mg PO QAM 05/15/19 07/12/23 07/09/23 clopidogrel 75 mg tablet 75 mg PO QAM 05/15/19 07/12/23 07/09/23 sacubitril 24 mg-valsartan 26 mg 1 tab PO BID 12/07/21 07/12/23 07/09/23 tablet (Entresto) empagliflozin 25 mg tablet 25 mg PO QAM 05/30/22 07/12/23 07/09/23 (Jardiance) carvedilol 12.5 mg tablet 12.5 mg PO BID #180 tabs 08/17/22 07/12/23 07/09/23 amlodipine 5 mg tablet (Norvasc) 5 mg PO QAM 05/27/23 07/12/23 07/09/23 furosemide 20 mg tablet 20 mg PO QAM 05/27/23 07/12/23 07/09/23 gabapentin 100 mg capsule 100 mg PO DAILY 05/27/23 07/12/23 07/09/23 apixaban 5 mg tablet (Eliquis) 5 mg PO BID 06/01/23 07/12/23 07/09/23 insulin glargine 100 unit/mL (3 44 unit subcut QA 06/01/23 07/12/23 07/09/23 mL) subcutaneous pen (Lantus Solostar U-100 Insulin) sertraline 50 mg tablet (Zoloft) 75 mg PO QAM 06/01/23 07/12/23 07/09/23 oxycodone-acetaminophen 5 mg-325 1 tab PO Q8H PRN pain #20 tabs 06/16/23 07/12/23 Unknown mg tablet (Percocet) spironolactone 25 mg tablet 25 mg PO QAM 06/16/23 07/12/23 07/09/23 (Aldactone) metformin 1,000 mg tablet 1,000 mg PO BID 07/12/23 07/12/23 07/09/23 Active Medications Generic Name Dose Route Start Last Admin Trade Name Freq PRN Reason Stop Dose Admin Amiodarone HCl 400 mg 07/14/23 21:00 07/15/23 07:46 Amiodarone 200 Mg Tab PO 08/13/23 20:59 400 mg BIDM CARLTON Administration Carvedilol 3.125 mg 07/13/23 17:00 07/15/23 07:46 Carvedilol 3.125 Mg Tab PO 08/12/23 16:59 3.125 mg BIDM CARLTON Administration Heparin Sodium/Dextrose 25,000 units in 500 mls @ 0 mls/hr 07/12/23 03:15 07/15/23 09:45 Heparin Sodium/Dextrose IV 08/11/23 03:14 0 units/hr .Q0M CARLTON 0 mls/hr Titration Protocol 0 UNITS/HR Pantoprazole Sodium 40 mg/ 10 mls @ 5 mls/min 07/12/23 11:00 07/15/23 09:10 Syringe IV 08/11/23 10:59 5 mls/min DAILY@1100 CARLTON Administration Daptomycin 675 mg/ Syringe 13.5 mls @ 5 mls/min 07/13/23 23:00 07/14/23 20:26 IV 07/27/23 22:59 5 mls/min DAILY@2100 CARLTON Administration Protocol Insulin Aspart 0 units 07/12/23 11:30 07/15/23 07:46 Insulin Aspart Per Unit Charge SC 08/11/23 05:59 2 units ACHS CARLTON Administration Insulin Glargine 20 units 07/12/23 09:00 07/15/23 07:47 Lantus Per Unit Charge SQ 08/11/23 08:59 7 units QAM CARLTON Administration Morphine Sulfate 4 mg 07/12/23 02:58 07/15/23 07:46 Morphine Sulfate 4 Mg/Ml 1 Ml Carp\\Vial IV 07/26/23 02:57 4 mg Q3H PRN Administration Mod-Sev Pain (Scale 4-10) Sodium Chloride 2 sprays 07/13/23 06:45 07/13/23 11:25 Sodium Chloride 0.65% Na Soln 45 Ml ([place]) NA 08/12/23 06:44 2 sprays Q2H PRN Administration Nasal Congestion NPO Date Last Intake of Fluids: 07/15/23 Time Last Intake of Fluids: 07:30 Last Intake of Fluids Comment: sip with med Date Last Intake of Solids: 07/14/23 Time Last Intake of Solids: 18:00 Past Medical History Medical History History of anemia History of anxiety History of alcohol abuse started 1965, quit 1999 Hx of drug abuse started 1965, quit 1999 "used every drug known to man">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, stayed in for 13 years IV drug abuse hx-quit in 1981 History of hepatitis B hx IV drug use Hepatitis C virus has had since the late s>no tx, "never had any trouble with it" Heart failure with mid-range ejection fraction Follows with [facility] EF 50-55% per 05/2022 ECHO Type 2 diabetes mellitus HTN (hypertension) Past Surgical History Surgical History Hx of cardiac catheterization 06/2021 [facility] History of open reduction and internal fixation (ORIF) procedure rt elbow and lt wrist>hardware intact Hx of colonoscopy History of left knee surgery 1988-tibial plateau reconstruction History of eye surgery retina History of cataract extraction rt/lt Social History Smoking Status: Current every day smoker tobacco type: cigarettes Smoking cigarettes per day: 12 per day >>advised Do You Dip or Chew Tobacco: No Hx Alcohol Use: No Hx Substance Use: Yes substance use type: former substance user and opiates Substance Use Type Other:: IV drugs Last Used Substance Other:: quit 1999-stated "used every drug known to man" Physical Exam Vital Signs Last Vital Signs Temp 37.9 C H 07/15/23 10:09 Pulse 85 07/15/23 10:09 Resp 20 07/15/23 10:09 BP 171/86 H 07/15/23 10:09 Pulse Ox 94 07/15/23 10:09 O2 Del Method Room Air 07/15/23 10:09 O2 Flow Rate 2 07/13/23 04:02 Testing Laboratory Results 07/15/23 06:54 07/15/23 06:54 PT 12.0 Seconds (9.0-12.0) 07/14/23 06:23 INR 1.1 (0.9-1.1) 07/14/23 06:23 APTT 39 Seconds (21-31) H 07/15/23 06:54 Hemoglobin A1c 12.1 % (4.5-5.6) H 07/12/23 00:24 Urine Color Dark Yellow 07/12/23 00:57 Urine Appearance Cloudy (Clear) A 07/12/23 00:57 Urine pH 5.0 (4.5-7.5) 07/12/23 00:57 Ur Specific [place] 1.030 (1.000-1.030) 07/12/23 00:57 Urine Protein 1+ (Negative) H 07/12/23 00:57 Urine Glucose (UA) 3+ (Negative) H 07/12/23 00:57 Urine Ketones Trace (Negative) H 07/12/23 00:57 Urine Nitrite Negative (Negative) 07/12/23 00:57 Ur Leukocyte Esterase Negative (Negative) 07/12/23 00:57 Urine WBC (Auto) 0-5 /hpf (0-5) 07/12/23 00:57 Urine RBC (Auto) 0-2 /hpf (0-2) 07/12/23 00:57 U Hyaline Cast (Auto) 11-20 /lpf (0-2) H 07/12/23 00:57 U Epithel Cells (Auto) 6-10 /hpf (0-2) H 07/12/23 00:57 Urine Bacteria (Auto) None Seen (None Seen) 07/12/23 00:57 07/12/23 00:32 Aerobic Blood Culture - Final Blood Staph aureus MRSA Anaerobic Blood Culture - Final Staph aureus MRSA 07/12/23 00:24 Aerobic Blood Culture - Final Blood Staph aureus MRSA Anaerobic Blood Culture - Final Staph aureus MRSA 07/15/23 07:08 POC Glucose 189 H
[2023-07-15] MEDS ORDERED: LACTATED RINGER'S 1,000 ML IV SCH (10:30)
--- NOTE | 2023-07-15 11:21 | Operative Report ---
Post Operative Report Pre & Post Diagnosis Operation Date: 07/15/23 10:30 Pre-Op Diagnosis: SEPSIS DUE TO DIABETIC FOOT INFECTION Post-Op Diagnosis: SEPSIS DUE TO DIABETIC FOOT INFECTION I identified the patient and participated in the time-out.: Yes Procedure Operation Date: 07/15/23 10:30 Actual Procedures p Left Great Toe Amputation(Left), wound VAC placement 4 x 3 x 2 cm.- Bhavin Ambriz MD Surgeon Bhavin Ambriz MD Diesel Mechanic none Estimated Blood Loss 50 Findings Consistent with Post-Op Diagnosis Specimens left great toe Anesthesia Type MAC Regional Complications none Disposition Accompanied Patient To Recovery: No Disposition: Recovery Room Indications This is a 72-year-old gentleman who has gangrene of his left great toe with purulent drainage. He had positive blood cultures for MRSA. Left great toe amputation was recommended. I have discussed the risks options and benefits of the procedure with the patient. The patient understands the risks options and benefits and agrees to the procedure. Description of Procedure The patient was taken the operating placed spine position. After the left foot was prepped draped in a sterile manner timeout was performed and the patient was identified. A tennis racquet incision was made around the base of the great toe extending upward along the metatarsal. This carried down to where the phalanx and the metatarsal head were identified. There is purulent drainage present in the toe itself. The phalanx and the metatarsal head to the midportion of the metatarsal bones were freed up from surrounding tissue. Metatarsal bone was then divided and the midportion. It was fairly hard at that point. It did not appear to be involved with the osteo. Once the toe and the metatarsal head were removed the sesamoid bones were also removed. The tissue itself looked viable. Good bleeding was noted. Bleeding was then controlled. Once all bleeding was controlled a silver wound VAC was placed in the wound. Good seal was noted. The patient left the operation room in satisfactory condition and tolerated the procedure well. All needle and sponge counts were correct at the end of the pro cedure. I attest to the content of the Intraoperative Record and any orders documented therein. Any exceptions are noted below.
[2023-07-15] MEDS: LIDOCAINE 2% LOCAL 50 ML VIAL ONE (11:43)
--- NOTE | 2023-07-15 11:55 | Anesthesiology Progress Note ---
Date of Service July 15, 2023 Anesthesia Post Procedure Vital Signs Vital Signs: Temp Pulse Pulse Pulse Resp BP Pulse Ox 07/15/23 11:45 76 22 171/80 H 99 07/15/23 11:35 37.4 C 75 22 169/79 H 100 07/15/23 11:25 74 22 173/76 H 99 07/15/23 11:17 37.3 C 77 22 180/86 H 99 07/15/23 10:09 37.9 C H 85 20 171/86 H 94 07/15/23 07:10 36.5 C 84 20 172/100 H 96 07/15/23 05:33 96 H 07/15/23 03:00 36.5 C 71 18 188/96 H 96 07/14/23 23:00 72 07/14/23 22:26 36.4 C L 74 16 182/92 H 95 07/14/23 20:00 07/14/23 19:44 37.1 C 71 22 204/77 H 98 07/14/23 15:09 66 07/14/23 15:01 36.6 C 69 18 173/90 H 94 O2 Del Method O2 Flow Rate 07/15/23 11:45 Nasal Cannula 2 07/15/23 11:35 Oxymask 4 07/15/23 11:25 Oxymask 4 07/15/23 11:17 Oxymask 4 07/15/23 10:09 Room Air 07/15/23 07:10 Room Air 07/15/23 05:33 07/15/23 03:00 Room Air 07/14/23 23:00 07/14/23 22:26 Room Air 07/14/23 20:00 Room Air 07/14/23 19:44 Room Air 07/14/23 15:09 07/14/23 15:01 Room Air Pain Intensity Left Foot: Pain Intensity: 7 Bilateral Back: Pain Intensity: 7 Transfer of Care Handoff Completed per policy Notes Mental Status: alert / awake / arousable and participated in evaluation Patient Amnestic to Procedure: Yes Nausea / Vomiting: adequately controlled Pain: adequately controlled Airway Patency, RR, SpO2: stable & adequate BP & HR: stable & adequate Hydration State: stable & adequate Anesthetic Complications: no major complications apparent
[2023-07-15] MEDS ORDERED: Nursing to Pharmacy Communication SCH (13:45)
--- NOTE | 2023-07-15 22:39 | Hospitalist Progress Note ---
Date of Service July 15, 2023 Assessment & Plan (1) 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: Plan: sepsis secondary to diabetic foot ulcer /gangrene/status post recent second toe amputation and great toe debridement for peripheral artery disease by Dr. Ambriz performed on 06/16/[address] Ambriz plans for revision of great toe ischemia 07/15/2023 hypotension in the ER Lowest blood pressure recorded was 80/53, small fluid bolus due to HFrEF (40-45%) Daptomycin IV and cefepime IV Initial lactate 5.7, with follow-up 4.[address] on heparin drip Temporarily hold clopidogrel If no immediate procedure to be performed, patient can resume outpatient dosing of apixaban clopidogrel. On 07/12, Placed on contact precautions due to MRSA. On 07/13, told nurse to limit use of opiates elda to his drowsiness. Patient will have surgeyr tomorrow. Reviewed cbc and bmp On 07/14 S/Pp Left Great Toe Amputation Reviewed cbc and BMP Patient is stable. (2) DM (diabetes mellitus): Plan: Diabetes mellitus- Patient will initially be n.p.o., however, if no procedure to be performed, would resume diabetic diet Reduce glargine from 44 to 20 units subcu every morning Hold metformin and Jardiance Placed on Accu-Cheks with NovoLog SSI typically on gabapeitin for neruopathy (3) Heart failure with ejection fraction improved from reduced range to preserved range: Plan: CAD and Cardiomyopathy s/p CABG with MOSLEY, fib (kushal operative) Typically sees [facility] usually on asa, atorvastatin, Coreg 12.5, Initial troponin 39.4, with follow-up 37.4 suspect demand ischemia (4) Acute kidney injury superimposed on CKD: Plan: Acute kidney injury superimposed on CKD-3 Creatinine 2.48, with base 1.27- Stop spironolactone, Jardiance and furosemide Status post 500 mill bolus normal saline from the ED NSS at 80 mL/h x 1 L Mild hyponatremia is noted we will continue to follow as holding diuretics (5) Anxiety: (6) Tobacco abuse: Plan: Counseled regarding cessation Admission and Anticipated Discharge Date Admission Date: July 12, 2023 Subjective Patient reports no new symptoms. Review of Systems Review of Systems: All systems reviewed & are unremarkable except as noted in HPI & below Physical Exam Physical Exam: Patient is resting comfortably. HEENT: Pupils are equal and reactive to light and accommodation. Extraocular movements are intact. The sclerae are anicteric. Neuro: Cranial nerves intact Lungs: Clear to auscultation bilaterally. He has good air movement without use of accessory muscles. No rales wheezes or rhonchi. Cardiac: Heart demonstrates a regular rate and rhythm. Normal S1 and S2. No murmurs on examination. Extremities: No clubbing or cyanosis in the hands. Discoloration an eschar noted on the left foot primarily the toes. Skin: I did not appreciate any rashes on examination today. Results & Data Results & Data Vital Signs (Past 12 Hours) Vital Signs Temp Pulse Pulse Resp BP BP Pulse Ox 07/15/23 20:00 07/15/23 19:28 36.6 C 71 21 144/74 H 95 07/15/23 15:10 37.2 C 80 20 157/81 H 92 07/15/23 13:50 82 14 150/73 H 93 07/15/23 13:30 89 16 169/75 H 94 07/15/23 13:00 80 15 144/76 H 95 07/15/23 12:30 87 16 144/78 H 95 07/15/23 12:15 80 18 154/76 H 94 07/15/23 12:05 37.1 C 78 22 172/78 H 94 07/15/23 11:45 76 22 171/80 H 99 07/15/23 11:35 37.4 C 75 22 169/79 H 100 07/15/23 11:25 74 22 173/76 H 99 07/15/23 11:17 37.3 C 77 22 180/86 H 99 O2 Del Method O2 Flow Rate 07/15/23 20:00 Room Air 07/15/23 19:28 Room Air 07/15/23 15:10 Room Air 07/15/23 13:50 Room Air 07/15/23 13:30 Room Air 07/15/23 13:00 Room Air 07/15/23 12:30 Room Air 07/15/23 12:15 Nasal Cannula 2 07/15/23 12:05 Nasal Cannula 1.0 07/15/23 11:45 Nasal Cannula 2 07/15/23 11:35 Oxymask 4 07/15/23 11:25 Oxymask 4 07/15/23 11:17 Oxymask 4 PG Care Time/CCT Total # of Minutes Spent Total Time Spent with Patient: Total time spent is greater than 50% in coordination of care (as documented) at patient's floor/unit and/or counseling patient: Coding Level of Care Code 76773 SUB INP/OBS CARE 2/35MIN Diagnoses 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 I73.9 DM (diabetes mellitus) E11.9 Heart failure with ejection fraction improved from reduced range to preserved range I50.32 Acute kidney injury superimposed on CKD N17.9; N18.9 Anxiety F41.9 Tobacco abuse Z72.0
[2023-07-16 07:16] LABS: Hematocrit (blood only) 28.4 % (42.0-52.0); Hemoglobin 9.5 g/dl (14.0-18.0); Mean Corpuscular Hemoglobin 25.1 pg (25.0-34.0); Mean Corpuscular Hgb Conc 33.5 g/dL (32.0-36.0); Mean Corpuscular Volume 75.1 fL (80.0-100.0); Mean Platelet Volume 11.2 fL (9.4-12.4); Platelet Count 91 K/uL (130-400); RDW Coefficient of Variation 15.1 % (11.5-14.5); RDW Standard Deviation 41.3 fL (36.4-46.3); Red Blood Count 3.78 M/uL (4.70-6.10); White Blood Count 10.28 K/ul (4.8-10.8)
[2023-07-16 07:41] LABS: BUN Creatinine Ratio 42.4 (10-20); Est GFR (African American) 50.3 ml/min; Est GFR (Non-African American) 43.4 ml/min; Potassium 3.8 mmol/L (3.5-5.1)
[2023-07-16 07:57] LABS: ANTI-Xa, UFH(UnfractionatedHep 0.17 IU/ml (0.3-0.7)
[2023-07-16] MEDS: HEPARIN SOD (PORCINE) 1000 UNIT/ML IV ONE (12:41)
--- NOTE | 2023-07-16 21:29 | Hospitalist Progress Note ---
Date of Service July 16, 2023 Assessment & Plan (1) 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: Plan: sepsis secondary to diabetic foot ulcer /gangrene/status post recent second toe amputation and great toe debridement for peripheral artery disease by Dr. Ambriz performed on 06/16/[address] Ambriz plans for revision of great toe ischemia 07/15/2023 hypotension in the ER Lowest blood pressure recorded was 80/53, small fluid bolus due to HFrEF (40-45%) Daptomycin IV and cefepime IV Initial lactate 5.7, with follow-up 4.[address] on heparin drip Temporarily hold clopidogrel If no immediate procedure to be performed, patient can resume outpatient dosing of apixaban clopidogrel. On 07/12, Placed on contact precautions due to MRSA. On 07/13, told nurse to limit use of opiates elda to his drowsiness. Patient will have surgeyr tomorrow. Reviewed cbc and bmp On 07/14 S/Pp Left Great Toe Amputation Reviewed cbc and BMP Patient is stable. ON 07/15 Patient remains stable reviewed cbc bmp. reviewed vitals, blood sugars. Patient is stable. (2) DM (diabetes mellitus): Plan: Diabetes mellitus- Patient will initially be n.p.o., however, if no procedure to be performed, would resume diabetic diet Reduce glargine from 44 to 20 units subcu every morning Hold metformin and Jardiance Placed on Accu-Cheks with NovoLog SSI typically on gabapeitin for neruopathy (3) Heart failure with ejection fraction improved from reduced range to preserved range: Plan: CAD and Cardiomyopathy s/p CABG with MOSLEY, fib (kushal operative) Typically sees [facility] usually on asa, atorvastatin, Coreg 12.5, Initial troponin 39.4, with follow-up 37.4 suspect demand ischemia (4) Acute kidney injury superimposed on CKD: Plan: Acute kidney injury superimposed on CKD-3 Creatinine 2.48, with base 1.27- Stop spironolactone, Jardiance and furosemide Status post 500 mill bolus normal saline from the ED NSS at 80 mL/h x 1 L Mild hyponatremia is noted we will continue to follow as holding diuretics (5) Anxiety: (6) Tobacco abuse: Plan: Counseled regarding cessation Admission and Anticipated Discharge Date Admission Date: July 12, 2023 Subjective 72 yo male reports no new symptoms. Review of Systems Review of Systems: All systems reviewed & are unremarkable except as noted in HPI & below Physical Exam Physical Exam: Patient is resting comfortably. HEENT: Pupils are equal and reactive to light and accommodation. Extraocular movements are intact. The sclerae are anicteric. Neuro: Cranial nerves intact Lungs: Clear to auscultation bilaterally. He has good air movement without use of accessory muscles. No rales wheezes or rhonchi. Cardiac: Heart demonstrates a regular rate and rhythm. Normal S1 and S2. No murmurs on examination. Extremities: No clubbing or cyanosis in the hands. Discoloration an eschar noted on the left foot primarily the toes. Skin: I did not appreciate any rashes on examination today. Results & Data Results & Data Vital Signs (Past 12 Hours) Vital Signs Temp Pulse Pulse Resp BP BP Pulse Ox 07/16/23 19:13 36.8 C 71 18 148/72 H 91 07/16/23 16:10 37.3 C 67 20 149/78 H 91 07/16/23 14:00 74 07/16/23 10:43 36.9 C 66 19 152/78 H 93 O2 Del Method 07/16/23 19:13 Room Air 07/16/23 16:10 Room Air 07/16/23 14:00 07/16/23 10:43 Room Air PG Care Time/CCT Total # of Minutes Spent Total Time Spent with Patient: Total time spent is greater than 50% in coordination of care (as documented) at patient's floor/unit and/or counseling patient: Coding Level of Care Code 09459 SUB INP/OBS CARE 2/35MIN Diagnoses 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 I73.9 DM (diabetes mellitus) E11.9 Heart failure with ejection fraction improved from reduced range to preserved range I50.32 Acute kidney injury superimposed on CKD N17.9; N18.9 Anxiety F41.9 Tobacco abuse Z72.0
[2023-07-17 07:35] LABS: Hematocrit (blood only) 29.1 % (42.0-52.0); Hemoglobin 9.6 g/dl (14.0-18.0); Mean Corpuscular Hemoglobin 25.4 pg (25.0-34.0); Mean Platelet Volume 11.5 fL (9.4-12.4); Platelet Count 77 K/uL (130-400); RDW Standard Deviation 41.1 fL (36.4-46.3); Red Blood Count 3.78 M/uL (4.70-6.10); White Blood Count 11.37 K/ul (4.8-10.8)
[2023-07-17 07:45] LABS: BUN Creatinine Ratio 39.6 (10-20); C Reactive Protein 21.79 mg/dl (0-0.5); Calcium 7.9 mg/dl (8.6-10.3); Creatinine Clr Calc Pharmacy 51.1 ml/min; Est GFR (African American) 49.9 ml/min; Potassium 4.2 mmol/L (3.5-5.1)
[2023-07-17 09:20] LABS: ANTI-Xa, UFH(UnfractionatedHep 0.26 IU/ml (0.3-0.7)
[2023-07-17 18:45] LABS: ANTI-Xa, UFH(UnfractionatedHep 0.24 IU/ml (0.3-0.7)
--- NOTE | 2023-07-17 22:42 | Hospitalist Progress Note ---
Date of Service July 17, 2023 Assessment & Plan (1) 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: Plan: sepsis secondary to diabetic foot ulcer /gangrene/status post recent second toe amputation and great toe debridement for peripheral artery disease by Dr. Ambriz performed on 06/16/[address] Ambriz plans for revision of great toe ischemia 07/15/2023 hypotension in the ER Lowest blood pressure recorded was 80/53, small fluid bolus due to HFrEF (40-45%) Daptomycin IV and cefepime IV Initial lactate 5.7, with follow-up 4.[address] on heparin drip Temporarily hold clopidogrel If no immediate procedure to be performed, patient can resume outpatient dosing of apixaban clopidogrel. On 07/12, Placed on contact precautions due to MRSA. On 07/13, told nurse to limit use of opiates elda to his drowsiness. Patient will have surgery tomorrow. Reviewed cbc and bmp On 07/14 S/Pp Left Great Toe Amputation Reviewed cbc and BMP Patient is stable. ON 07/15 Patient remains stable reviewed cbc bmp. reviewed vitals, blood sugars. Patient is stable. On 07/16 Patient is resting comfortably. No new complaints. (2) DM (diabetes mellitus): Plan: Diabetes mellitus- Patient will initially be n.p.o., however, if no procedure to be performed, would resume diabetic diet Reduce glargine from 44 to 20 units subcu every morning Hold metformin and Jardiance Placed on Accu-Cheks with NovoLog SSI typically on gabapeitin for neruopathy (3) Heart failure with ejection fraction improved from reduced range to preserved range: Plan: CAD and Cardiomyopathy s/p CABG with MOSLEY, fib (kushal operative) Typically sees [facility] usually on asa, atorvastatin, Coreg 12.5, Initial troponin 39.4, with follow-up 37.4 suspect demand ischemia (4) Acute kidney injury superimposed on CKD: Plan: Acute kidney injury superimposed on CKD-3 Creatinine 2.48, with base 1.27- Stop spironolactone, Jardiance and furosemide Status post 500 mill bolus normal saline from the ED NSS at 80 mL/h x 1 L Mild hyponatremia is noted we will continue to follow as holding diuretics (5) Anxiety: (6) Tobacco abuse: Plan: Counseled regarding cessation Admission and Anticipated Discharge Date Admission Date: July 12, 2023 Subjective 72 yo male reports no new symptoms. Review of Systems Review of Systems: All systems reviewed & are unremarkable except as noted in HPI & below Physical Exam Physical Exam: Patient is resting comfortably. HEENT: Pupils are equal and reactive to light and accommodation. Extraocular movements are intact. The sclerae are anicteric. Neuro: Cranial nerves intact Lungs: Clear to auscultation bilaterally. He has good air movement without use of accessory muscles. No rales wheezes or rhonchi. Cardiac: Heart demonstrates a regular rate and rhythm. Normal S1 and S2. No murmurs on examination. Extremities: No clubbing or cyanosis in the hands. Discoloration an eschar noted on the left foot primarily the toes. Results & Data Results & Data Vital Signs (Past 12 Hours) Vital Signs Temp Pulse Pulse Resp BP Pulse Ox O2 Del Method 07/17/23 19:36 36.6 C 67 20 143/70 H 90 Room Air 07/17/23 19:34 Room Air 07/17/23 16:08 36.7 C 70 20 152/71 H 91 Room Air 07/17/23 14:00 69 07/17/23 11:44 36.7 C 66 17 149/80 H 93 Room Air PG Care Time/CCT Total # of Minutes Spent Total Time Spent with Patient: Total time spent is greater than 50% in coordination of care (as documented) at patient's floor/unit and/or counseling patient: Coding Level of Care Code 84464 SUB INP/OBS CARE 2/35MIN Diagnoses 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 I73.9 DM (diabetes mellitus) E11.9 Heart failure with ejection fraction improved from reduced range to preserved range I50.32 Acute kidney injury superimposed on CKD N17.9; N18.9 Anxiety F41.9 Tobacco abuse Z72.0
[2023-07-18 01:43] LABS: ANTI-Xa, UFH(UnfractionatedHep 0.28 IU/ml (0.3-0.7)
[2023-07-18 08:47] LABS: Hematocrit (blood only) 28.2 % (42.0-52.0); Hemoglobin 9.4 g/dl (14.0-18.0); Mean Corpuscular Hemoglobin 25.5 pg (25.0-34.0); Mean Corpuscular Hgb Conc 33.3 g/dL (32.0-36.0); Mean Corpuscular Volume 76.4 fL (80.0-100.0); Mean Platelet Volume 12.2 fL (9.4-12.4); Platelet Count 129 K/uL (130-400); RDW Coefficient of Variation 14.6 % (11.5-14.5); RDW Standard Deviation 40.3 fL (36.4-46.3); Red Blood Count 3.69 M/uL (4.70-6.10); White Blood Count 12.69 K/ul (4.8-10.8)
[2023-07-18 09:07] LABS: ANTI-Xa, UFH(UnfractionatedHep 0.34 IU/ml (0.3-0.7)
[2023-07-18 09:17] LABS: BUN Creatinine Ratio 33.8 (10-20); Est GFR (African American) 54.4 ml/min; Est GFR (Non-African American) 46.9 ml/min; Potassium 4.3 mmol/L (3.5-5.1)
[2023-07-18] MEDS: APIXABAN 5 MG TABLET PO SCH (21:00)
--- NOTE | 2023-07-18 22:51 | Hospitalist Progress Note ---
Date of Service July 18, 2023 Assessment & Plan (1) 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: Plan: sepsis secondary to diabetic foot ulcer /gangrene/status post recent second toe amputation and great toe debridement for peripheral artery disease by Dr. Ambriz performed on 06/16/[address] Ambriz plans for revision of great toe ischemia 07/15/2023 hypotension in the ER Lowest blood pressure recorded was 80/53, small fluid bolus due to HFrEF (40-45%) Daptomycin IV and cefepime IV Initial lactate 5.7, with follow-up 4.[address] on heparin drip Temporarily hold clopidogrel If no immediate procedure to be performed, patient can resume outpatient dosing of apixaban clopidogrel. On 07/12, Placed on contact precautions due to MRSA. On 07/13, told nurse to limit use of opiates elda to his drowsiness. Patient will have surgery tomorrow. Reviewed cbc and bmp On 07/14 S/Pp Left Great Toe Amputation Reviewed cbc and BMP Patient is stable. ON 07/15 Patient remains stable reviewed cbc bmp. reviewed vitals, blood sugars. Patient is stable. On 07/16 Patient is resting comfortably. No new complaints. On 07/17 Patient is doing well. Will transition to oral antibiotics at discharge. will obtain auth. (2) DM (diabetes mellitus): Plan: Diabetes mellitus- Patient will initially be n.p.o., however, if no procedure to be performed, would resume diabetic diet Reduce glargine from 44 to 20 units subcu every morning Hold metformin and Jardiance Placed on Accu-Cheks with NovoLog SSI typically on gabapeitin for neruopathy (3) Heart failure with ejection fraction improved from reduced range to preserved range: Plan: CAD and Cardiomyopathy s/p CABG with MOSLEY, fib (kushal operative) Typically sees [facility] usually on asa, atorvastatin, Coreg 12.5, Initial troponin 39.4, with follow-up 37.4 suspect demand ischemia (4) Acute kidney injury superimposed on CKD: Plan: Acute kidney injury superimposed on CKD-3 Creatinine 2.48, with base 1.27- Stop spironolactone, Jardiance and furosemide Status post 500 mill bolus normal saline from the ED NSS at 80 mL/h x 1 L Mild hyponatremia is noted we will continue to follow as holding diuretics (5) Anxiety: (6) Tobacco abuse: Plan: Counseled regarding cessation Admission and Anticipated Discharge Date Admission Date: July 12, 2023 Subjective Patient reports no new symptoms. Review of Systems Review of Systems: All systems reviewed & are unremarkable except as noted in HPI & below Physical Exam Physical Exam: Patient is resting comfortably. HEENT: Pupils are equal and reactive to light and accommodation. Extraocular movements are intact. The sclerae are anicteric. Neuro: Cranial nerves intact Lungs: Clear to auscultation bilaterally. He has good air movement without use of accessory muscles. No rales wheezes or rhonchi. Cardiac: Heart demonstrates a regular rate and rhythm. Normal S1 and S2. No m urmurs on examination. Extremities: No clubbing or cyanosis in the hands. Discoloration an eschar noted on the left foot primarily the toes. Results & Data Results & Data Vital Signs (Past 12 Hours) Vital Signs Temp Pulse Pulse Resp BP Pulse Ox O2 Del Method 07/18/23 19:23 37.2 C 67 20 137/71 92 Room Air 07/18/23 16:00 71 07/18/23 15:45 37.3 C 71 20 162/79 H 92 Room Air 07/18/23 11:03 37.1 C 72 16 157/75 H 92 Room Air 07/18/23 11:02 Room Air PG Care Time/CCT Total # of Minutes Spent Total Time Spent with Patient: Total time spent is greater than 50% in coordination of care (as documented) at patient's floor/unit and/or counseling patient: Coding Level of Care Code 60569 SUB INP/OBS CARE 2/35MIN Diagnoses 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 I73.9 DM (diabetes mellitus) E11.9 Heart failure with ejection fraction improved from reduced range to preserved range I50.32 Acute kidney injury superimposed on CKD N17.9; N18.9 Anxiety F41.9 Tobacco abuse Z72.0
[2023-07-19 06:45] LABS: Hematocrit (blood only) 27.7 % (42.0-52.0); Hemoglobin 9.3 g/dl (14.0-18.0); Mean Corpuscular Hemoglobin 25.8 pg (25.0-34.0); Mean Corpuscular Hgb Conc 33.6 g/dL (32.0-36.0); Mean Corpuscular Volume 76.7 fL (80.0-100.0); Mean Platelet Volume 11.7 fL (9.4-12.4); Platelet Count 160 K/uL (130-400); RDW Coefficient of Variation 14.6 % (11.5-14.5); RDW Standard Deviation 40.5 fL (36.4-46.3); Red Blood Count 3.61 M/uL (4.70-6.10); White Blood Count 13.16 K/ul (4.8-10.8)
[2023-07-19 06:59] LABS: BUN Creatinine Ratio 30.6 (10-20); Creatinine Clr Calc Pharmacy 60.4 ml/min; Est GFR (African American) 61.3 ml/min; Est GFR (Non-African American) 52.9 ml/min; Potassium 4.4 mmol/L (3.5-5.1)
[2023-07-19] MEDS: CLOPIDOGREL BISULFATE 75 MG TAB PO SCH (07:46)
--- NOTE | 2023-07-19 09:56 | Communication Note ---
Date of Service: July 19, 2023 Patient can be discharged with wound vac with follow up in the wound center at any time. We will see him in the office two weeks after discharge.
--- NOTE | 2023-07-19 15:46 | Nephrology Consultation ---
Date of Consultation July 19, 2023 Assessment & Plan (1) Hyponatremia: (2) Acute kidney injury superimposed on CKD: (3) 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: (4) Multifocal pneumonia: (5) Sepsis: (6) Anemia: Plan 72-year-old gentleman with stage IIIb CKD, baseline creatinine 1.5-1.6, chronic mild hyponatremia, hypertension, diabetes, coronary artery disease, CHF, admitted with sepsis secondary to diabetic foot ulcer with gangrene and multifocal pneumonia s/p left great toe amputation. Currently on daptomycin. On admission had FLORECITA, creatinine peaked at 2.5 which improved back to baseline. Sodium was 130 which has been staying lower over last few days around 125-126. No urine osmolality available. --Check urine osmolality, urine sodium --Resume Lasix 20 mg daily --Encourage increased protein intake Thank you for allowing me to participate in your patient's care. It was a pleasure to see Cody. History of Present Illness Reason for Consultation: Hyponatremia Attending Physician: Anibal Tobin History of Present Illness Mr. Cody Alvarez is a 72-year-old male with PMH of stage 3B CKD, HTN, DM, CAD, CHF, PAD admitted to the hospital with sepsis, bacteremia diabetic foot ulcer and gangrene as well as multifocal pneumonia. Nephrology consult requested for management of hyponatremia. EMR records are reviewed in detail during patient's visit. Cody was admitted on 07/12/23 after he was brought to ER with family concern regarding generalized weakness and worsening left great toe infection with chronic diabetic ulcer and gangrene. On admission he was hypotensive with lowest blood pressure 80/53. Chest x-ray showed pulmonary congestion bilateral pleural effusion. Lasix, Jardiance, spironolactone and Entresto was on hold. Started on daptomycin. Blood culture was positive for MRSA. Had left great toe amputation and wound VAC placed on 07/13/2023. Lab was notable for FLORECITA, creatinine initially was 2.0 which peaked at 2.5 but improved over last few days, staying close to baseline of 1.5-1.6 mg/dl. On admission sodium was 130 with history of mild chronic hyponatremia over last few years. Sodium has been staying low around 125-126 over last few days. Started on salt tablet 1 g twice a day starting this morning. Past medical history is significant for stage IIIb CKD baseline creatinine 1.5- 1.6, history of poorly controlled diabetes, recent A1c 12, hypertension, coronary artery disease s/p CABG, cardiomyopathy, CHF, dyslipidemia, tobacco abuse. During visit he was quite sleepy and did not want to answer many questions but denied any specific symptoms. Allergies Allergy/AdvReac Type Severity Reaction Status Date / Time cat dander Allergy Intermediate CONGESTION Verified 07/12/23 02:04 Home Medications Medication Instructions Recorded Confirmed Type atorvastatin 80 mg tablet (Lipitor) 80 mg PO QAM 05/15/19 07/12/23 History clopidogrel 75 mg tablet 75 mg PO QAM 05/15/19 07/12/23 History sacubitril 24 mg-valsartan 26 mg 1 tab PO BID 12/07/21 07/12/23 History tablet (Entresto) empagliflozin 25 mg tablet 25 mg PO QAM 05/30/22 07/12/23 History (Jardiance) carvedilol 12.5 mg tablet 12.5 mg PO BID #180 tabs 08/17/22 07/12/23 Rx amlodipine 5 mg tablet (Norvasc) 5 mg PO QAM 05/27/23 07/12/23 History furosemide 20 mg tablet 20 mg PO QAM 05/27/23 07/12/23 History gabapentin 100 mg capsule 100 mg PO DAILY 05/27/23 07/12/23 History apixaban 5 mg tablet (Eliquis) 5 mg PO BID 06/01/23 07/12/23 History insulin glargine 100 unit/mL (3 44 unit subcut QAM 06/01/23 07/12/23 History mL) subcutaneous pen (Lantus Solostar U-100 Insulin) sertraline 50 mg tablet (Zoloft) 75 mg PO QAM 06/01/23 07/12/23 History oxycodone-acetaminophen 5 mg-325 1 tab PO Q8H PRN pain #20 tabs 06/16/23 07/12/23 Rx mg tablet (Percocet) spironolactone 25 mg tablet 25 mg PO QAM 06/16/23 07/12/23 History (Aldactone) metformin 1,000 mg tablet 1,000 mg PO BID 07/12/23 07/12/23 History Patient History Medical History History of anemia History of anxiety History of alcohol abuse started 1965, quit 1999 Hx of drug abuse started 1965, quit 1999 "used every drug known to man">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, stayed in for 13 years IV drug abuse hx-quit in 1981 History of hepatitis B hx IV drug use Hepatitis C virus has had since the late >no tx, "never had any trouble with it" Heart failure with mid-range ejection fraction Follows with [facility] EF 50-55% per 05/2022 ECHO Type 2 diabetes mellitus HTN (hypertension) Surgical History Hx of cardiac catheterization 06/2021 [facility] History of open reduction and internal fixation (ORIF) procedure rt elbow and lt wrist>hardware intact Hx of colonoscopy History of left knee surgery 1988-tibial plateau reconstruction History of eye surgery retina History of cataract extraction rt/lt Social History Smoking Status: Current every day smoker Tobacco Type: Cigarettes Cigarettes Per Day: 12 per day >>advised; Second Hand Exposure: Yes (hx); Do You Dip or Chew Tobacco: No; Hx Alcohol Use: No Hx Substance Use: Yes Last Used Substance Other:: quit 1999-stated "used every drug known to man" Substance Use Type Other:: IV drugs Preferred Language: Hungarian Communication Ability: 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 Physical Exam Constitutional: WD/WN, vitals as above no acute distress Eyes: + anicteric sclerae Neck: normal visual inspection Respiratory: no respiratory distress Auscultation: + diminished lung sounds and + crackles; no wheezes Cardiovascular: Rate/Rhythm: regular rate and regular rhythm Heart Sounds: normal S1 and normal S2 Extremities: + edema (trace b/l LE edema) Gastrointestinal (Abdomen): Inspection/Auscultation: abdomen normal to inspection Musculoskeletal: Extremities: extremities normal to inspection Neurologic: no focal motor deficits Psychiatric: Orientation: alert and oriented x 3 Affect: euthymic affect Results & Data Vital Signs (Past 12 Hours) Vital Signs Temp Pulse Pulse Resp BP BP Pulse Ox 07/19/23 15:05 36.8 C 73 15 163/81 H 93 07/19/23 14:50 75 07/19/23 11:25 36.4 C L 76 17 148/77 H 94 07/19/23 08:00 82 07/19/23 07:05 37.5 C 75 17 170/77 H 93 O2 Del Method 07/19/23 15:05 Room Air 07/19/23 14:50 07/19/23 11:25 Room Air 07/19/23 08:00 07/19/23 07:05 Room Air PG Care Time/CCT Total # of Minutes Spent Total Time Spent with Patient: Total time spent is greater than 50% in coordination of care (as documented) at patient's floor/unit and/or counseling patient: Coding Level of Care Code 26223 INT INP/OBS CARE 3/75MIN Diagnoses Hyponatremia E87.1 Acute kidney injury superimposed on CKD N17.9; N18.9 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 I73.9 Multifocal pneumonia J18.9 Sepsis A41.9 Anemia D64.9 Anemia type: unspecified type (6) Anemia Anemia type: unspecified type Qualified Code(s): D64.9 - Anemia, unspecified
[2023-07-19] MEDS: FUROSEMIDE 20 MG TAB PO SCH (17:24)
[2023-07-19] MEDS: SODIUM CHLORIDE 1 GM TABLET PO SCH (20:51)
--- NOTE | 2023-07-19 22:25 | Hospitalist Progress Note ---
Date of Service July 19, 2023 Assessment & Plan (1) 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: Plan: MRSA bacteremia /sepsis secondary to diabetic foot ulcer /gangrene/status post recent second toe amputation and great toe debridement for peripheral artery disease by Dr. Ambriz performed on 06/16/[address] Ambriz S/P left great toe amputation on 07/14 Contact precautions due to MRSA hypotension in the ER Lowest blood pressure recorded was 80/53, small fluid bolus due to HFrEF (40-45%) Daptomycin IV and cefepime IV initally, now titrated to daptomycin Hold apixaban Place on heparin drip Temporarily held clopidogrel Now resumed apixaban and clopidogrel. Awaiting negative blood cultures to place PICC line. Ordered echo. Given likely uncomplicated nature of MRSA bacteremia, may consider a 2 week course starting from left great toe amputation. (2) DM (diabetes mellitus): Plan: Diabetes mellitus- Patient will initially be n.p.o., however, if no procedure to be performed, would resume diabetic diet Reduce glargine from 44 to 20 units subcu every morning Hold metformin and Jardiance Placed on Accu-Cheks with NovoLog SSI typically on gabapeitin for neruopathy (3) Heart failure with ejection fraction improved from reduced range to preserved range: Plan: CAD and Cardiomyopathy s/p CABG with MOSLEY, fib (kushal operative) Typically sees [facility] usually on asa, atorvastatin, Coreg 12.5, Initial troponin 39.4, with follow-up 37.4 suspect demand ischemia (4) Acute kidney injury superimposed on CKD: Plan: Acute kidney injury superimposed on CKD-3 Creatinine 2.48, with base 1.27- Stop spironolactone, Jardiance and furosemide Status post 500 mill bolus normal saline from the ED NSS at 80 mL/h x 1 L Mild hyponatremia is noted we will continue to follow as holding diuretics. consulted nephro (5) Anxiety: (6) Tobacco abuse: Plan: Counseled regarding cessation Admission and Anticipated Discharge Date Admission Date: July 12, 2023 Subjective Patient reports no new symptoms. Review of Systems Review of Systems: All systems reviewed & are unremarkable except as noted in HPI & below Physical Exam Physical Exam: Patient is resting comfortably. HEENT: Pupils are equal and reactive to light and accommodation. Extraocular movements are intact. The sclerae are anicteric. Neuro: Cranial nerves intact Lungs: Clear to auscultation bilaterally. He has good air movement without use of accessory muscles. No rales wheezes or rhonchi. Cardiac: Heart demonstrates a regular rate and rhythm. Normal S1 and S2. No murmurs on examination. Extremities: No clubbing or cyanosis in the hands. Discoloration an eschar noted on the left foot primarily the toes. Results & Data Results & Data Vital Signs (Past 12 Hours) Vital Signs Temp Pulse Pulse Pulse Resp BP BP 07/19/23 20:02 36.7 C 72 17 146/70 H 07/19/23 20:00 07/19/23 15:05 36.8 C 73 15 163/81 H 07/19/23 14:50 75 07/19/23 11:25 36.4 C L 76 17 148/77 H Pulse Ox O2 Del Method 07/19/23 20:02 94 Room Air 07/19/23 20:00 Room Air 07/19/23 15:05 93 Room Air 07/19/23 14:50 07/19/23 11:25 94 Room Air PG Care Time/CCT Total # of Minutes Spent Total Time Spent with Patient: Total time spent is greater than 50% in coordination of care (as documented) at patient's floor/unit and/or counseling patient: Coding Level of Care Code 51730 SUB INP/OBS CARE 2/35MIN Diagnoses 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 I73.9 DM (diabetes mellitus) E11.9 Heart failure with ejection fraction improved from reduced range to preserved range I50.32 Acute kidney injury superimposed on CKD N17.9; N18.9 Anxiety F41.9 Tobacco abuse Z72.0
[2023-07-20 07:50] LABS: Hematocrit (blood only) 27.7 % (42.0-52.0); Hemoglobin 9.1 g/dl (14.0-18.0); Mean Corpuscular Hemoglobin 25.6 pg (25.0-34.0); Mean Corpuscular Hgb Conc 32.9 g/dL (32.0-36.0); Mean Corpuscular Volume 77.8 fL (80.0-100.0); Mean Platelet Volume 11.3 fL (9.4-12.4); Platelet Count 216 K/uL (130-400); RDW Coefficient of Variation 14.7 % (11.5-14.5); RDW Standard Deviation 41.1 fL (36.4-46.3); Red Blood Count 3.56 M/uL (4.70-6.10); White Blood Count 10.36 K/ul (4.8-10.8)
[2023-07-20 08:19] LABS: Albumin Globulin Ratio 0.5 (0.9-2); Albumin Level 2.2 gm/dl (3.4-5.0); BUN Creatinine Ratio 27.6 (10-20); Bilirubin,Total 1.2 mg/dl (0.2-1.0); Creatinine Clr Calc Pharmacy 60.1 ml/min; Est GFR (African American) 61.3 ml/min; Est GFR (Non-African American) 52.9 ml/min; Globulin 4.5 gm/dl (2.5-4.0); Phosphorus 3.9 mg/dl (2.5-4.9); Potassium 4.2 mmol/L (3.5-5.1); Total Protein 6.7 gm/dl (6.0-8.3)
[2023-07-20 08:37] LABS: Ferritin 499.9 ng/ml (8-388)
[2023-07-20] MEDS: IRON SUCROSE 200 MG in 0.9 % SODIUM CHLORIDE 100 ML IV SCH (09:25)
--- NOTE | 2023-07-20 10:30 | Nephrology Progress Note ---
Date of Service July 20, 2023 Assessment & Plan (1) Hyponatremia: (2) Acute kidney injury superimposed on CKD: (3) 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: (4) Multifocal pneumonia: (5) Sepsis: (6) Anemia: Plan 72-year-old gentleman with stage IIIb CKD, baseline creatinine 1.5-1.6 mg/dl, chronic mild hyponatremia, hypertension, diabetes, coronary artery disease, CHF, admitted with sepsis secondary to diabetic foot ulcer with gangrene and multifocal pneumonia s/p left great toe amputation. Currently on daptomycin. On admission had FLORECITA, creatinine peaked at 2.5 which improved back to baseline. Sodium was 130 which has been staying lower over last few days around 125-126. Urine osmolality >300 --continue Lasix 20 mg daily and salt tab --free water restriction to <1500 ml/d --Encourage increased protein intake --start on venofer Admission and Anticipated Discharge Date Admission Date: July 12, 2023 Varghese Ross was seen and evaluated this morning. Denied any symptoms/concerns. No confusion. BP fair. Na slightly improved to 127, cr stable. Review of Systems Review of Systems: Detailed review of system was not possible. Physical Exam Constitutional: WD/WN, vitals as above no acute distress Eyes: + anicteric sclerae Neck: normal visual inspection Respiratory: no respiratory distress Auscultation: + diminished lung sounds and + crackles; no wheezes Cardiovascular: Rate/Rhythm: regular rate and regular rhythm Heart Sounds: normal S1 and normal S2 Extremities: + edema (trace b/l LE edema) Musculoskeletal: left foot with wound vac Neurologic: no focal motor deficits Psychiatric: Orientation: alert and oriented x 3 Affect: euthymic affect Results & Data Vital Signs (Past 12 Hours) Vital Signs Temp Pulse Pulse Resp BP Pulse Ox O2 Del Method 07/20/23 09:05 Room Air 07/20/23 07:20 36.5 C 70 17 151/72 H 95 Room Air 07/20/23 00:00 71 07/19/23 23:48 36.7 C 70 20 132/72 92 Room Air PG Care Time/CCT Total # of Minutes Spent Total Time Spent with Patient: Total time spent is greater than 50% in coordination of care (as documented) at patient's floor/unit and/or counseling patient: Coding Level of Care Code 41082 SUB INP/OBS CARE 2/35MIN Diagnoses Hyponatremia E87.1 Acute kidney injury superimposed on CKD N17.9; N18.9 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 I73.9 Multifocal pneumonia J18.9 Sepsis A41.9 Anemia D64.9 Anemia type: unspecified type (6) Anemia Anemia type: unspecified type Qualified Code(s): D64.9 - Anemia, unspecified
[2023-07-20] MEDS: PANTOprazole 40 MG TAB PO SCH (12:50)
--- NOTE | 2023-07-20 13:41 | Hospitalist Progress Note ---
Date of Service July 20, 2023 Assessment & Plan (1) MRSA bacteremia: Plan: MRSA bacteremia /sepsis secondary to diabetic foot ulcer /gangrene/status post recent second toe amputation and great toe debridement for peripheral artery disease by Dr. Ambriz performed on 06/16/2023 Now S/P left great toe amputation on 07/14 hypotension in the ER Lowest blood pressure recorded was 80/53, small fluid bolus due to HFrEF (40-45%) Daptomycin IV and cefepime IV initially, now titrated to daptomycin Blood culture from 07/11 + for MRSA; repeat blood cultures 07/18 pending Awaiting negative blood cultures to place PICC line. TTE pending Will likely need 4 weeks IV antibiotics ID consulted (2) 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: Plan: Plan as per above (3) Hyponatremia: Plan: Na= 127 today Nephrology consulted - continue Lasix 20 mg daily - continue salt tab - fluid restriction to <1500 ml/day (4) DM (diabetes mellitus): Plan: Reduce glargine from 44 to 20 units subcu every morning Hold metformin and Jardiance Placed on Accu-Cheks with NovoLog SSI typically on gabapeitin for neruopathy (5) Heart failure with ejection fraction improved from reduced range to preserved range: Plan: CAD and Cardiomyopathy s/p CABG with MOSLEY, fib (kushal operative) - continue cardilol, Lasix, Plavix Initial troponin 39.4, with follow-up 37.4 suspect demand ischemia (6) Acute kidney injury superimposed on CKD: Plan: Acute kidney injury superimposed on CKD-3 Creatinine 2.48, with base 1.2 -1.3 > now back to baseline 1.3 Holding spironolactone Nephrology is consulted (7) Tobacco abuse: Plan: Counseled regarding cessation (8) Atrial fibrillation: Plan: Continue Eliquis Started on amiodarone this admission, continue (9) Anemia: Plan: Anemia of chronic disease Venofer x 1 today per nephrology (10) Multifocal pneumonia: Plan: question for multifocal PNA on CXR 07/11 afebrile, without increased oxygen requirement or pulmonary symptoms- low suspicion for continued PNA at this time, but given that he is currently in daptomycin which would not cover a PNA plan to repeat CXR Admission and Anticipated Discharge Date Admission Date: July 12, 2023 Supervising Physician Co-Signing Physician Notes I personally examined the patient and verified all amos points of history and exam, discussed case, and agree with decision making with Dr Lewis Baker under reasonable control. Is okay with the idea of going to rehab. Wound VAC in place. Discussed next steps in treatment and recovery. Vitals noted, in general he is awake and alert pleasant no distress. HEENT normocephalic atraumatic mucous membranes moist. Breathing unlabored no accessory muscle use good effort. Skin shows no rashes no pallor or icterus. Neuro without focal deficits. Diabetic foot infection/MRSA osteomyelitis/MRSA bacteremiasuspect most likely wound infection/cellulitis progressed to bacteremia, although obviously it is possible he had spontaneous bacteremia that seeded in his footbut given that he had the preceding foot ulcer/wound it seems more likely that the skin infection is primary. Stable and postopcontinue wound VAC. Bacteremiarepeat cultures just sent yesterday, although no growth to date times greater than 24 hours now, echocardiogram reassuringdoubt endocarditis. Chest x-ray findings concerning for pneumonia and obviously daptomycin would not have much of any lung penetration, at the same time he is 98% on room air and does not appear to have pneumonia signs and symptoms. Get a repeat chest x-ray for completeness. Will ask ID to see him tomorrow for assistance in any other "fall out" from the bloodstream infection (i.e. do not see any evidence of anything else) and then assistance with optimal duration of antibiotics (given the bacteremia, and the complexity of his situation, I would presume probably a longer duration, but will defer to infectious disease judgment in this regard). Ultimately anticipate rehab. Anticoagulated Subjective No events overnight. Continues to complain of pain in foot, otherwise doing well. Review of Systems Review of Systems: As per above Physical Exam Physical Exam: Constitutional: well-appearing, no acute distress HEENT: NCAT, no conjunctival injection CV: regular rhythm, no murmur appreciated, extremities well-perfused, no LE edema Resp: CTABL, no wheezes/rales/rhonchi appreciated, no increased work of breathing GI: soft, nondistended, nontender MSK: no gross deformities appreciated Skin: warm, dry, no rash appreciated Neuro: alert, oriented, no focal neurologic deficit appreciated Results & Data Results & Data Vital Signs (Past 12 Hours) Vital Signs Temp Pulse Pulse Resp BP BP Pulse Ox 07/20/23 11:23 36.7 C 73 20 153/79 H 96 07/20/23 11:05 72 07/20/23 09:05 07/20/23 07:20 36.5 C 70 17 151/72 H 95 O2 Del Method 07/20/23 11:23 Room Air 07/20/23 11:05 07/20/23 09:05 Room Air 07/20/23 07:20 Room Air Resident Activity Tracking Resident Involvement: Resident Care Provided Care Provided: Adult Hospital Medicine (9) Anemia Anemia type: unspecified type Qualified Code(s): D64.9 - Anemia, unspecified
--- NOTE | 2023-07-20 17:03 | XCELERA ---
[id number]
--- NOTE | 2023-07-20 17:20 | XRay Report ---
XR chest 1V portable CLINICAL HISTORY: f/u prior abnormal COMPARISON STUDY: Chest radiographs March 11, 2023 and July 12, 2023. FINDINGS: Median sternotomy wires are noted. There is no pneumothorax or pleural effusion. Cardiomega ly is unchanged. Pulmonary vascular congestion is again noted. Patchy left lung densities have slight ly improved. Minimal right basilar opacity is likely present. IMPRESSION: 1. Mild improvement in left lung airspace opacities. The findings favor improving pneumonia. Follow-u p PA and lateral chest radiographs in 1 month to ensure complete resolution are recommended. 2. Cardiomegaly with pulmonary vascular congestion. 3. Minimal right basilar opacity. This is likely atelectatic although an infectious process could lois ear similar. ACT 112: Negative or not required by law. Electronically signed by: Preston Dumont M.D. 07/20/2023 5:18 PM
--- NOTE | 2023-07-20 18:01 | Billing Data ---
Date of Service July 20, 2023 Coding Level of Care Code 38260 SUB INP/OBS CARE
--- NOTE | 2023-07-21 06:48 | Hospitalist Progress Note ---
Date of Service July 21, 2023 Assessment & Plan (1) MRSA bacteremia: Plan: MRSA bacteremia /sepsis secondary to diabetic foot ulcer /gangrene/status post recent second toe amputation and great toe debridement for peripheral artery disease by Dr. Ambriz performed on 06/16/2023 Now S/P left great toe amputation on 07/14 Daptomycin IV and cefepime IV initially, now titrated to daptomycin Blood culture from 07/11 + for MRSA; repeat blood cultures 07/18 1/2 +MRSA TTE without vegetation; given persistent bacteremia consider REGINE CT Chest pending- some concern for PNA given CXR and could be possible source of persistent bacteremia given poor lung penetration with dapto ID consulted - added ceftaroline for dual MRSA coverage, Repeat blood cultures 07/20 pending (2) 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: Plan: Plan as per above (3) Hyponatremia: Plan: Na= 127 today Nephrology consulted - continue Lasix 20 mg daily - continue salt tab - fluid restriction to <1500 ml/day (4) DM (diabetes mellitus): Plan: Reduce glargine from 44 to 20 units subcu every morning Hold metformin Restart Jaundice per nephrology Placed on Accu-Cheks with NovoLog SSI typically on gabapentin for neuropathy (5) Heart failure with ejection fraction improved from reduced range to preserved range: Plan: CAD and Cardiomyopathy s/p CABG with MOSLEY, fib (kushal operative) - continue cardilol, Lasix, Plavix Initial troponin 39.4, with follow-up 37.4 suspect demand ischemia (6) Acute kidney injury superimposed on CKD: Plan: Acute kidney injury superimposed on CKD-3 Creatinine 2.48, with base 1.2 -1.3 > now back to baseline 1.3 Holding spironolactone Nephrology is consulted (7) Tobacco abuse: Plan: Counseled regarding cessation (8) Atrial fibrillation: Plan: Continue Eliquis Started on amiodarone this admission, continue (9) Anemia: Plan: Anemia of chronic disease Venofer x 1 today per nephrology (10) Multifocal pneumonia: Plan: question for multifocal PNA on CXR 07/11 afebrile, without increased oxygen requirement or pulmonary symptoms, but given persistence of bacteremia plan for CT chest as per above Admission and Anticipated Discharge Date Admission Date: July 12, 2023 Supervising Physician Co-Signing Physician Notes I personally examined the patient and verified all amos points of history and exam, discussed case, and agree with decision making with Dr Saucedo Pain under reasonable control. Is okay with the idea of going to rehab. Wound VAC in place. discussed persistent MRSA bacteremia and next steps. He expressed understanding. Vitals noted, in general he is awake and alert pleasant no distress. HEENT normocephalic atraumatic mucous membranes moist. Breathing unlabored no accessory muscle use good effort. Skin shows no rashes no pallor or icterus. Neuro without focal deficits. Diabetic foot infection/MRSA osteomyelitis/MRSA bacteremiasuspect most likely wound infection/cellulitis progressed to bacteremia, although obviously it is possible he had spontaneous bacteremia that seeded in his footbut given that he had the preceding foot ulcer/wound it seems more likely that the skin infection is primary. Stable and postopcontinue wound VAC. Bacteremia Unfortunately persistent. Endocarditis would be a diagnosis of exclusion. At same time he does have the inflammatory type findings on his chest x-ray that, while asymptomatic, could potentially be litigation claim representative of ongoing smoldering infections given the daptomycin has very poor lung penetrationthis seems far less likely than endocarditis, but I suppose possible. CT chest to evaluate lung parenchyma in better detail. Discussing REGINE with cardiology (versus just an empiric longer duration of treatment) and appreciate ID input/addition of Ceftalorine. Continue supportive care. Otherwise as above. Anticipate rehab once antibiotic dose/duration is determined. Subjective No events overnight. Continues to complain of dry mouth/nose. Review of Systems Review of Systems: As per above Physical Exam Physical Exam: Constitutional: well-appearing, no acute distress HEENT: NCAT, no conjunctival injection CV: regular rhythm, no murmur appreciated, extremities well-perfused, no LE edema Resp: CTABL, no wheezes/rales/rhonchi appreciated, no increased work of breathing GI: soft, nondistended, nontender MSK: no gross deformities appreciated Skin: warm, dry, no rash appreciated Neuro: alert, oriented, no focal neurologic deficit appreciated Results & Data Results & Data Vital Signs (Past 12 Hours) Vital Signs Temp Pulse Pulse Resp BP Pulse Ox O2 Del Method 07/21/23 03:33 36.6 C 70 20 157/74 H 96 Room Air 07/20/23 22:58 36.9 C 67 18 137/74 97 Room Air 07/20/23 22:02 71 05/22/24 20:58 Room Air 07/20/23 19:08 37.0 C 68 20 135/69 96 Room Air Resident Activity Tracking Resident Involvement: Resident Care Provided Care Provided: Adult Hospital Medicine (9) Anemia Anemia type: unspecified type Qualified Code(s): D64.9 - Anemia, unspecified
[2023-07-21 08:10] LABS: Basophils # (auto) 0.04 K/uL (0.00-0.20); Basophils % (auto) 0.4 %; Eosinophils # (auto) 0.17 K/uL (0.00-0.50); Eosinophils % (auto) 1.7 %; Hemoglobin 8.5 g/dl (14.0-18.0); Immature Granulocytes # (auto) 0.13 K/uL (0.01-0.20); Immature Granulocytes % (auto) 1.3 %; Lymphocytes # (auto) 0.99 K/uL (1.20-3.40); Lymphocytes % (auto) 9.9 %; Mean Corpuscular Hemoglobin 25.6 pg (25.0-34.0); Mean Corpuscular Hgb Conc 32.7 g/dL (32.0-36.0); Mean Corpuscular Volume 78.3 fL (80.0-100.0); Mean Platelet Volume 11.4 fL (9.4-12.4); Neutrophils # (auto) 7.86 K/uL (1.40-6.50); Neutrophils % (auto) 78.7 %; Platelet Count 250 K/uL (130-400); RDW Standard Deviation 41.7 fL (36.4-46.3); Red Blood Count 3.32 M/uL (4.70-6.10); White Blood Count 9.99 K/ul (4.8-10.8)
[2023-07-21 08:30] LABS: Albumin Level 2.2 gm/dl (3.4-5.0); Bilirubin,Total 1.1 mg/dl (0.2-1.0); Magnesium 1.6 mg/dl (1.7-2.4); Potassium 4.2 mmol/L (3.5-5.1)
[2023-07-21 08:36] LABS: Albumin Globulin Ratio 0.5 (0.9-2); BUN Creatinine Ratio 25.6 (10-20); Creatinine Clr Calc Pharmacy 55.9 ml/min; Est GFR (African American) 61.9 ml/min; Est GFR (Non-African American) 53.4 ml/min; Globulin 4.5 gm/dl (2.5-4.0); Phosphorus 3.8 mg/dl (2.5-4.9); Total Protein 6.7 gm/dl (6.0-8.3)
[2023-07-21] MEDS: MAGNESIUM SULFATE / D5W 1 GM/100 ML BAG IV ONE (09:14)
[2023-07-21 09:22] LABS: A calco-baum cmplx NotReported Not Detected (NotDetected); Bact fragilis Not Reported Not Detected (NotDetected); Blood Culture Id Panel See PCR Comment (NotDetected); C auris Not Reported Not Detected (NotDetected); Calbicans Not Reported Not Detected (NotDetected); Candida glabrata Not Reported Not Detected (NotDetected); Candida krusei Not Reported Not Detected (NotDetected); Cneoformans/gatti Not Reported Not Detected (NotDetected); Cparapsilosis Not Reported Not Detected (NotDetected); E cloacae compx Not Reported Not Detected (NotDetected); Efaecalis Not Reported Not Detected (NotDetected); Efaecium Not Reported Not Detected (NotDetected); Enterobacterales Not Reported Not Detected (NotDetected); Escherichia coli Not Reported Not Detected (NotDetected); H influenzae Not Reported Not Detected (NotDetected); K aerogenes Not Reported Not Detected (NotDetected); Koxytoca Not Reported Not Detected (NotDetected); Kpneumoniae grp Not Reported Not Detected (NotDetected); Lmonocyt Not Reported Not Detected (NotDetected); N meningitidis Not Reported Not Detected (NotDetected); P aeruginosa Not Reported Not Detected (NotDetected); Proteus spp Not Reported Not Detected (NotDetected); Salmonella spp Not Reported Not Detected (NotDetected); Smarcescens Not Reported Not Detected (NotDetected); Staph lugdunensis Not Reported Not Detected (NotDetected); Staph spp. Not Reported DETECTED (NotDetected); Staphaureus Not Reported DETECTED (NotDetected); Staphepi Not Reported Not Detected (NotDetected); Stenmaltophilia Not Reported Not Detected (NotDetected); Strep agal(GrpB) Not Reported Not Detected (NotDetected); Strep pneum Not Reported Not Detected (NotDetected); Strep pyog (GrpA) Not Reported Not Detected (NotDetected); Strep spp Not Reported Not Detected (NotDetected)
[2023-07-21 09:27] LABS: Staphylococcus spp. DETECTED (NotDetected); mecAC+MREJ Resistant Gene MRSA DETECTED (NotDetected)
--- NOTE | 2023-07-21 09:38 | Infectious Disease Consult ---
Date of Consultation July 21, 2023 Assessment & Plan (1) MRSA bacteremia: (2) Atrial fibrillation: (3) Diabetic foot ulcer: (4) 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: (5) Acute kidney injury superimposed on CKD: Plan 72yo M with h/o peripheral arterial disease s/p LLE femoral to anterior tibial artery reverse GSV bypass in 02/2023, recent left 2nd toe infection with other toe eschars s/p LLE 2nd to amputation and debridement of toes 1, 3, and 4 on 06/16/23, CHF, diabetes, CAD s/p CABG, afib, pulmonary HTN, CKD III, chronic HCV, anxiety who presented on 07/11 with generalized weakness and worsening left great toe infection. He was seen outpatient by vascular on 07/06 at which time cellulitis was noticed on great toe and started on cipro until f/u in 1 week, but toe became worse so presented to ED. Here, he has been afebrile, initially hypotensive. WBC initially wnl, Cr 2.48 (improved), AST/ALT wnl. Troponin elevated. CRP 21.79. UA negative. RPP negative. BCx with MRSA. XR left foot with age indeterminant erosive change involving the tuft of the first distal phalanx; correlate clinically for evidence of osteomyelitis. CXR with ill- defined patchy airspace opacities throughout the left lung may represent multifocal pneumonia. S/p OR on 07/14 for left great toe amputation and wound vac placement (per op note, there is purulent drainage present in the toe itself; MT bone was divided, bone was fairly hard, it did not appear to be involved with the osteo, once the toe and the metatarsal head were removed the sesamoid bones were also removed). No OR cx. TTE negative for vegetations. Repeat BCx from 07/18 returned positive for GPC in clusters. ID consulted on 07/20. Regarding MRSA bacteremia, likely source is his foot infection. However, he has BCx from 07/18 which also have GPC in clusters, raising concerns for persistent bacteremia ongoing for over a week. Source should have been adequately controlled with surgery and no other clear sources/seeding noted on examination. Im going to add dual therapy with ceftaroline for MRSA while waiting for speciation. If it is indeed MRSA on cx from 07/18, then he will need a REGINE to r/o endocarditis. If he develops any new back pain or spinal tenderness, abdominal pain (ie r/t psoas abscess), new joint pains/swelling, then this needs to be evaluated. He doesnt have any longstanding lines. For his left foot infection, the foot has been properly debrided and amputated. No residual bone infection noted and therefore from foot infection standpoint, would not need long course of abx. # MRSA bacteremia # Left great toe infection s/p amputation on 07/14 # FLORECITA improving # Diabetes # PAD - Nano started ceftaroline for dual MRSA therapy - Nano reordered blood cultures - if BCx from 07/18 are MRSA, then please pursue REGINE - monitor for seeding of infection to spine, joints, other sites (ie psoas abscesses etc) - continue daptomycin 8mg/kg IV q24h ID will continue to follow. If questions or concerns, contact Infectious Disease Call Center . Krys Godinez MD [facility], Division of Infectious Diseases [facility]: [phone] Consultation Information Consultation was provided via telemedicine using two-way real-time interactive telecommunication between the patient and the telemedicine provider. For the duration of the visit, the provider was performing the assessment from a different facility than the patient. This includesuse of bluetooth stethoscope forauscultationperformed by the telepresenter that the telemedicine provider can hear if described in the physical exam. Paint Roller Cover Machine Setter contact information: Please call [facility] Center [phone]. (Phone Number For Physician Use Only) After establishing a telemedicine visit, patient was: Patient was verified with two unique identifiers, Patient/authorized rep acknowledged consent and understanding and Gave permission to continue telehealth session Time Spent with Patient: Initial => 75 min History of Present Illness Reason for Consultation: MRSA bacteremia Attending Physician: Jamil Jose DO History of Present Illness 72yo M with h/o peripheral arterial disease s/p LLE femoral to anterior tibial artery reverse GSV bypass in 02/2023, recent left 2nd toe infection with other toe eschars s/p LLE 2nd to amputation and debridement of toes 1, 3, and 4 on 06/16/23, CHF, diabetes, CAD s/p CABG, afib, pulmonary HTN, CKD III, chronic HCV, anxiety who presented on 07/11 with generalized weakness and worsening left great toe infection. He was seen outpatient by vascular on 07/06 at which time he had cellulitis was noticed on great toe. Patient had declined hospital admission so was started on cipro until f/u in 1 week. However, he became more weak and was not able to get out of bed 2 days prior to admission along with worsening left foot. Family was concerned to he came to the ED. Here, he has been afebrile, initially hypotensive. WBC initially wnl, Cr 2.48 (improved), AST/ALT wnl. Troponin elevated. CRP 21.79. UA negative. RPP negative. BCx with MRSA. XR left foot with age indeterminant erosive change involving the tuft of the first distal phalanx; correlate clinically for evidence of osteomyelitis. CXR with ill-defined patchy airspace opacities throughout the left lung may represent multifocal pneumonia. S/p OR on 07/14 for left great toe amputation and wound vac placement (per op note, there is purulent drainage present in the toe itself; MT bone was divided, bone was fairly hard, it did not appear to be involved with the osteo, once the toe and the metatarsal head were removed the sesamoid bones were also removed). No OR cx. TTE negative for vegetations. Repeat BCx from 07/18 returned positive for GPC in clusters. ID consulted on 07/20. On evaluation, patient reports that he gets pain in his left foot on/off. He denies having any shortness of breath or chest pain. He has a baseline cough related to his tobacco use. No abdominal pain, n/v/d, no joint pains/swelling. He says he has some knee cap refill in 1988 when asked about hardware, otherwise no other devices/hardware. He says that his tail bone is painful since being in the hospital and laying in the bed. Otherwise no other back pain. Allergies Allergy/AdvReac Type Severity Reaction Status Date / Time cat dander Allergy Intermediate CONGESTION Verified 07/12/23 02:04 Home Medications Medication Instructions Recorded Confirmed Type atorvastatin 80 mg tablet (Lipitor) 80 mg PO QAM 05/15/19 07/12/23 History clopidogrel 75 mg tablet 75 mg PO QAM 05/15/19 07/12/23 History sacubitril 24 mg-valsartan 26 mg 1 tab PO BID 12/07/21 07/12/23 History tablet (Entresto) empagliflozin 25 mg tablet 25 mg PO QAM 05/30/22 07/12/23 History (Jardiance) carvedilol 12.5 mg tablet 12.5 mg PO BID #180 tabs 08/17/22 07/12/23 Rx amlodipine 5 mg tablet (Norvasc) 5 mg PO QAM 05/27/23 07/12/23 History furosemide 20 mg tablet 20 mg PO QAM 05/27/23 07/12/23 History gabapentin 100 mg capsule 100 mg PO DAILY 05/27/23 07/12/23 History apixaban 5 mg tablet (Eliquis) 5 mg PO BID 06/01/23 07/12/23 History insulin glargine 100 unit/mL (3 44 unit subcut QAM 06/01/23 07/12/23 History mL) subcutaneous pen (Lantus Solostar U-100 Insulin) sertraline 50 mg tablet (Zoloft) 75 mg PO QAM 06/01/23 07/12/23 History oxycodone-acetaminophen 5 mg-325 1 tab PO Q8H PRN pain #20 tabs 06/16/23 07/12/23 Rx mg tablet (Percocet) spironolactone 25 mg tablet 25 mg PO QAM 06/16/23 07/12/23 History (Aldactone) metformin 1,000 mg tablet 1,000 mg PO BID 07/12/23 07/12/23 History Patient History Medical History History of anemia History of anxiety History of alcohol abuse started 1965, quit 1999 Hx of drug abuse started 1965, quit 1999 "used every drug known to man">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, stayed in for 13 years IV drug abuse hx-quit in 1981 History of hepatitis B hx IV drug use Hepatitis C virus has had since the late 1979's>no tx, "never had any trouble with it" Heart failure with mid-range ejection fraction Follows with [facility] EF 50-55% per 05/2022 ECHO Type 2 diabetes mellitus HTN (hypertension) Surgical History Hx of cardiac catheterization 06/2021 [facility] History of open reduction and internal fixation (ORIF) procedure rt elbow and lt wrist>hardware intact Hx of colonoscopy History of left knee surgery 1988-tibial plateau reconstruction History of eye surgery retina History of cataract extraction rt/lt Social History Smoking Status: Current every day smoker Tobacco Type: Cigarettes Cigarettes Per Day: 12 per day >>advised; Second Hand Exposure: Yes (hx); Do You Dip or Chew Tobacco: No; Hx Alcohol Use: No Hx Substance Use: Yes Last Used Substance Other:: quit 1999-stated "used every drug known to man" Substance Use Type Other:: IV drugs Preferred Language: Tajik Communication Ability: Effective Digital Printer Operator Required: No Beliefs That Will Affect Care: None Current Living Situation: Alone How many Children do You have: 1 Feels Safe at Home: Yes Assistive Devices: Glasses Review of System 10-point review of systems reviewed and are negative except for as above. Physical Exam Physical Exam: General: Awake, alert, no acute distress HEENT: NC/AT, EOMI, mmm Neck: supple Lungs: clear Heart: no appreciable murmurs Abdomen: soft, NT/ND Back: no spinal tenderness, no rash or open lesions Ext: left foot with wound vac, draining bloody fluid, postsurgical changes, no joint swelling/redness Skin: no rash Neuro: moving all extremities Results & Data Vital Signs (Past 12 Hours) Vital Signs Temp Pulse Pulse Resp BP Pulse Ox O2 Del Method 07/21/23 07:00 36.4 C L 68 17 159/71 H 95 Room Air 07/21/23 03:33 36.6 C 70 20 157/74 H 96 Room Air 07/20/23 22:58 36.9 C 67 18 137/74 97 Room Air 07/20/23 22:02 71 Laboratory Results Labs reviewed. Diagnostic Findings Imaging reviewed.
--- NOTE | 2023-07-21 10:33 | Nephrology Progress Note ---
Date of Service July 21, 2023 Assessment & Plan (1) Hyponatremia: (2) Acute kidney injury superimposed on CKD: (3) 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: (4) Multifocal pneumonia: (5) Sepsis: (6) Anemia: Plan 72-year-old gentleman with stage IIIb CKD, baseline creatinine 1.5-1.6 mg/dl, chronic mild hyponatremia, hypertension, diabetes, coronary artery disease, CHF, admitted with sepsis secondary to diabetic foot ulcer with gangrene and multifocal pneumonia s/p left great toe amputation. Currently on daptomycin. On admission had FLORECITA, creatinine peaked at 2.5 which improved back to baseline. Sodium was 130 which has been staying lower over last few days around 125-126. Urine osmolality >300 Na stable at 127. --resume Jardiance 25 mg/d --continue Lasix 20 mg daily and salt tab --free water restriction to <1500 ml/d --Encourage increased protein intake --continue on venofer Admission and Anticipated Discharge Date Admission Date: July 12, 2023 Subjective Peter was seen and evaluated this morning. Reports being exhausted. No confusion. BP fair. Na stable at 127, cr stable. Review of Systems Review of Systems: Detailed review of system was not possible. Physical Exam Constitutional: WD/WN, vitals as above no acute distress Eyes: + anicteric sclerae Neck: normal visual inspection Respiratory: no respiratory distress Auscultation: + diminished lung sounds and + crackles; no wheezes Cardiovascular: Rate/Rhythm: regular rate and regular rhythm Heart Sounds: normal S1 and normal S2 Extremities: + edema (trace b/l LE edema) Musculoskeletal: left foot with wound vac Neurologic: no focal motor deficits Psychiatric: Orientation: alert and oriented x 3 Affect: euthymic affect Results & Data Vital Signs (Past 12 Hours) Vital Signs Temp Pulse Pulse Resp BP Pulse Ox O2 Del Method 07/21/23 08:15 69 07/21/23 07:00 36.4 C L 68 17 159/71 H 95 Room Air 07/21/23 03:33 36.6 C 70 20 157/74 H 96 Room Air 07/20/23 22:58 36.9 C 67 18 137/74 97 Room Air PG Care Time/CCT Total # of Minutes Spent Total Time Spent with Patient: Total time spent is greater than 50% in coordination of care (as documented) at patient's floor/unit and/or counseling patient: Coding Level of Care Code 25499 SUB INP/OBS CARE MIN Diagnoses Hyponatremia E87.1 Acute kidney injury superimposed on CKD N17.9; N18.9 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 I73.9 Multifocal pneumonia J18.9 Sepsis A41.9 Anemia D64.9 Anemia type: unspecified type (6) Anemia Anemia type: unspecified type Qualified Code(s): D64.9 - Anemia, unspecified
[2023-07-21] MEDS: CEFTAROLINE FOSAMIL ACETATE 600 MG in SODIUM CHLORIDE 0.9% 250 ML IV SCH (10:54)
[2023-07-21] MEDS: EMPAGLIFLOZIN 25 MG TAB PO SCH (11:01)
--- NOTE | 2023-07-21 16:12 | CT Scan Report ---
CT chest diagnostic wo con CT DOSE: 677.88 mGy.cm CLINICAL HISTORY: 72 years-old Male with Concern for PNA. Acute shortness of breath TECHNIQUE: Multiaxial CT images of the chest were performed without contrast. A dose lowering techni que was utilized adhering to the principles of ALARA. COMPARISON: Chest radiograph 07/20/2023 FINDINGS: No thyroid nodule. Mediastinal and hilar lymphadenopathy includes a 1.2 cm precarinal lymph node with central fatty hilum. Mild cardiomegaly. Extensive [place] coronary artery calcifications. M edian sternotomy with CABG. Atherosclerosis of the aorta without aneurysm. Trace left and small right pleural effusions. No pneumothorax. Mild dependent subsegmental bibasilar atelectasis. There are are numerous multilobar bilateral irregular consolidative foci, most of which demonstrate central cavitation measuring up to approximately 2.4 cm and the left upper lobe on image 91. Numerous additional scattered mostly subcentimeter pulmonary nodules without central cavitation. There is a 6 cm ill-defined subpleural consolidative opacity of the lingula on image 111. Central air ways are patent. The spleen appears mildly enlarged. Ill-defined 4.6 cm right hepatic lobe lesion on image 46 series 2 . No acute fracture or destructive bone lesion identified. Chronic left-sided rib fractures with inco mplete bony fusion involving a subacute chronic fracture of the left posterolateral seventh rib. Age- indeterminate superior endplate Schmorl's node at T11. IMPRESSION: 1. Numerous multilobar bilateral distribution of irregular centrally cavitary nodular areas of consol idation. Differential considerations include necrotic pneumonia, septic emboli versus pulmonary metas tasis. Close follow-up is needed. 2. Mild mediastinal and hilar lymphadenopathy. 3. Right greater left pleural effusions. 4. Numerous subcentimeter scattered bilateral solid pulmonary nodules. 5. Suspicious indeterminate 4.6 right hepatic lobe mass could be further evaluated with tissue sampli ng. ACT 112: Negative or not required by law. Electronically signed by: Patrick Mario M.D. 07/21/2023 4:11 PM
--- NOTE | 2023-07-21 18:14 | Billing Data ---
Date of Service July 21, 2023 Coding Level of Care Code 29620 SUB INP/OBS CARE
--- NOTE | 2023-07-21 18:15 | Billing Data ---
Date of Service July 21, 2023 Coding Level of Care Code 42654 SUB INP/OBS CARE
--- NOTE | 2023-07-22 07:03 | Hospitalist Progress Note ---
Date of Service July 22, 2023 Assessment & Plan (1) MRSA bacteremia: Plan: MRSA bacteremia/sepsis secondary to diabetic foot ulcer /gangrene status post recent second toe amputation and great toe debridement for peripheral artery disease by Dr. Ambriz performed on 06/16/2023 Now S/P left great toe amputation on 07/14 Blood culture (07/11) +MRSA; repeat cultures (07/18) 1/2 +MRSA; repeat cultures (07/20) pending CT Chest: Numerous multilobar bilateral distribution of irregular centrally cavitary nodular areas of consolidation. Differential considerations include necrotic pneumonia, septic emboli versus pulmonary metastasis. Close follow up on this imaging should be performed. TTE without vegetation; given persistent bacteremia consider REGINE - spoke with cardiology, will likely forego this and tx as presumed endocarditis based on clinical suspicion ID following - initially on daptomycin and cefepime --> now on daptomycin and ceftaroline for dual MRSA coverage. (2) 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: Plan: s/p amputation as above - wound vac in place - f/u wound care and vascular in the upcoming weeks (3) Hyponatremia: Plan: Improving Nephrology following - continue Lasix, jardiance, salt tab - fluid restriction to <1500 ml/day (4) DM (diabetes mellitus): Plan: Cont. 20 units glargine qam + SSI Hold metformin Cont. Jaundice per nephrology (5) Heart failure with ejection fraction improved from reduced range to preserved range: Plan: CAD and Cardiomyopathy s/p CABG with MOSLEY, afib (kushal operative) -continue cardilol, Lasix, Plavix -initial troponin 39.4, peaked. Suspect demand. (6) Acute kidney injury superimposed on CKD: Plan: Acute kidney injury superimposed on CKD-3, resolved - now at baseline 1.3 Nephrology is following Holding spironolactone (7) Tobacco abuse: Plan: Counseled regarding cessation (8) Atrial fibrillation: Plan: -cardiology following - initially started on amiodarone 400mg BID - transition to 200mg daily -continue Eliquis (9) Anemia: Plan: Anemia of chronic disease daily venofer per nephrology (10) Liver mass: Plan: Seen on CT imaging -would further evaluate with biopsy - can be done as an outpatient Plan DVT ppx: eliquis FEN/GI: DM2 Code Status: full Dispo: PCU Admission and Anticipated Discharge Date Admission Date: July 12, 2023 Supervising Physician Co-Signing Physician Notes I personally examined the patient and verified all amos points of history and exam, discussed case, and agree with decision making with Dr Nieves Having a little bit of pain whenever I see him. Morphine stat dose ordered. Decision maker presentupdated at the bedside in the patient's presence, answered all questions the best my ability and to their satisfaction. Vitals noted, in general he is awake and alert pleasant But does appear appear a little uncomfortable. HEENT normocephalic atraumatic mucous membranes moist. Breathing unlabored no accessory muscle use good effort. Skin shows no rashes no pallor or icterus. Neuro without focal deficits. Diabetic foot infection/MRSA osteomyelitis/MRSA bacteremiasuspect most likely wound infection/cellulitis progressed to bacteremia, although obviously it is possible he had spontaneous bacteremia that seeded in his footbut given that he had the preceding foot ulcer/wound it seems more likely that the skin infection is primary. Stable and postopcontinue wound VAC. Bacteremia Unfortunately persistent. Endocarditis would be a diagnosis of exclusion. given his extensive infection, I would feel it more prudent to treat for a longer durationin discussion with cardiology they agreed, because of this, will treat for a longer duration anyway, and REGINE deferred. Patient and decision-maker are comfortable with this. Greatly appreciate infectious disease assistanceand will definitely want to treat for 6 weeks from first negative blood culture. Continues of tolerating for now and await speciation of culture from the other day, as well as follow-up cultures. Decision maker expressed concern about depression, patient has not mentioned this to me, she noted he does not express active suicidality at this time. Subjective Seen at bedside this morning. Feels the same as yesterday. Mild fatigue. Denies cp, sob, abd pain, dysuria, cough. Normal BMs. Review of Systems Review of Systems: All systems reviewed & are unremarkable except as noted in HPI & below Physical Exam Physical Exam: Constitutional: well-appearing, no acute distress HEENT: NCAT, no conjunctival injection CV: regular rhythm, no murmur appreciated, extremities well-perfused, no LE edema Resp: CTAB, no wheezes/rales/rhonchi appreciated, no increased work of breathing GI: soft, nondistended, nontender MSK: no gross deformities Skin: +wound vac L foot Neuro: AOx3, no focal deficits Results & Data Results & Data Vital Signs (Past 12 Hours) Vital Signs Temp Pulse Pulse Resp BP BP Pulse Ox 07/22/23 06:59 36.7 C 67 17 143/69 H 96 07/22/23 03:32 36.6 C 68 18 160/81 H 95 07/21/23 23:01 36.7 C 70 16 129/70 96 07/21/23 22:01 70 07/21/23 21:20 07/21/23 19:32 36.3 C L 62 22 151/77 H 94 O2 Del Method 07/22/23 06:59 Room Air 07/22/23 03:32 Room Air 07/21/23 23:01 Room Air 07/21/23 22:01 07/21/23 21:20 Room Air 07/21/23 19:32 Room Air Laboratory Results 07/22/23 07/22/23 07/21/23 Range/Units 06:57 06:42 20:17 WBC 7.46 (4.8-10.8) K/ul RBC 3.21 L (4.70-6.10) M/uL Hgb 8.1 L (14.0-18.0) g/dl Hct 25.1 L (42.0-52.0) % MCV 78.2 L (80.0-100.0) fL MCH 25.2 (25.0-34.0) pg MCHC 32.3 (32.0-36.0) g/dL RDW Std Deviation 41.8 (36.4-46.3) fL RDW Coeff of Josh 15.0 H (11.5-14.5) % Plt Count 283 (130-400) K/uL MPV 11.3 (9.4-12.4) fL Immature Gran % (Auto) 1.2 % Neut % (Auto) 74.4 % Lymph % (Auto) 12.7 % [place] % (Auto) 9.7 % Eos % (Auto) 1.6 % Baso % (Auto) 0.4 % Neut # (Auto) 5.55 (1.40-6.50) K/uL Lymph # (Auto) 0.95 L (1.20-3.40) K/uL [place] # (Auto) 0.72 H (0.11-0.59) K/uL Eos # (Auto) 0.12 (0.00-0.50) K/uL Baso # (Auto) 0.03 (0.00-0.20) K/uL Immature Gran # (Auto) 0.09 (0.01-0.20) K/uL Sodium 129 L (136-145) mmol/L Potassium 4.0 (3.5-5.1) mmol/L Chloride 100 (98-107) mmol/L Carbon Dioxide 24 (21-32) mmol/L Anion Gap 5 (3-11) BUN 28 H (6-23) mg/dl Creatinine 1.36 (0.6-1.4) mg/dl Est Cr Clr Drug Dosing 54.7 ml/min Est GFR ( Amer) 60.2 ml/min Est GFR (Non-Af Amer) 52.0 ml/min BUN/Creatinine Ratio 20.6 H (10-20) Glucose 122 H (70-99(Fasting)) mg/dl POC Glucose 134 H 109 H (70-99) mg/dl Calcium 7.5 L (8.6-10.3) mg/dl Phosphorus 4.1 (2.5-4.9) mg/dl Magnesium 1.7 (1.7-2.4) mg/dl Total Bilirubin 0.9 (0.2-1.0) mg/dl AST 31 (13-39) U/L ALT 17 (7-52) U/L Alkaline Phosphatase 199 H (34-104) U/L Total Creatine Kinase 98 (30-223) U/L Total Protein 6.7 (6.0-8.3) gm/dl Albumin 2.1 L (3.4-5.0) gm/dl Globulin 4.6 H (2.5-4.0) gm/dl Albumin/Globulin Ratio 0.5 L (0.9-2) 07/21/23 07/21/23 Range/Units 16:06 11:25 WBC (4.8-10.8) K/ul RBC (4.70-6.10) M/uL Hgb (14.0-18.0) g/dl Hct (42.0-52.0) % MCV (80.0-100.0) fL MCH (25.0-34.0) pg MCHC (32.0-36.0) g/dL RDW Std Deviation (36.4-46.3) fL RDW Coeff of Josh (11.5-14.5) % Plt Count (130-400) K/uL MPV (9.4-12.4) fL Immature Gran % (Auto) % Neut % (Auto) % Lymph % (Auto) % [place] % (Auto) % Eos % (Auto) % Baso % (Auto) % Neut # (Auto) (1.40-6.50) K/uL Lymph # (Auto) (1.20-3.40) K/uL [place] # (Auto) (0.11-0.59) K/uL Eos # (Auto) (0.00-0.50) K/uL Baso # (Auto) (0.00-0.20) K/uL Immature Gran # (Auto) (0.01-0.20) K/uL Sodium (136-145) mmol/L Potassium (3.5-5.1) mmol/L Chloride (98-107) mmol/L Carbon Dioxide (21-32) mmol/L Anion Gap (3-11) BUN (6-23) mg/dl Creatinine (0.6-1.4) mg/dl Est Cr Clr Drug Dosing ml/min Est GFR ( Amer) ml/min Est GFR (Non-Af Amer) ml/min BUN/Creatinine Ratio (10-20) Glucose (70-99(Fasting)) mg/dl POC Glucose 92 138 H (70-99) mg/dl Calcium (8.6-10.3) mg/dl Phosphorus (2.5-4.9) mg/dl Magnesium (1.7-2.4) mg/dl Total Bilirubin (0.2-1.0) mg/dl AST (13-39) U/L ALT (7-52) U/L Alkaline Phosphatase (34-104) U/L Total Creatine Kinase (30-223) U/L Total Protein (6.0-8.3) gm/dl Albumin (3.4-5.0) gm/dl Globulin (2.5-4.0) gm/dl Albumin/Globulin Ratio (0.9-2) Resident Activity Tracking Resident Involvement: Resident Care Provided Care Provided: Adult Hospital Medicine (9) Anemia Anemia type: unspecified type Qualified Code(s): D64.9 - Anemia, unspecified
[2023-07-22 07:07] LABS: Basophils # (auto) 0.03 K/uL (0.00-0.20); Basophils % (auto) 0.4 %; Eosinophils # (auto) 0.12 K/uL (0.00-0.50); Eosinophils % (auto) 1.6 %; Hematocrit (blood only) 25.1 % (42.0-52.0); Hemoglobin 8.1 g/dl (14.0-18.0); Immature Granulocytes # (auto) 0.09 K/uL (0.01-0.20); Immature Granulocytes % (auto) 1.2 %; Lymphocytes # (auto) 0.95 K/uL (1.20-3.40); Lymphocytes % (auto) 12.7 %; Mean Corpuscular Hemoglobin 25.2 pg (25.0-34.0); Mean Corpuscular Hgb Conc 32.3 g/dL (32.0-36.0); Mean Corpuscular Volume 78.2 fL (80.0-100.0); Mean Platelet Volume 11.3 fL (9.4-12.4); Monocytes # (auto) 0.72 K/uL (0.11-0.59); Monocytes % (auto) 9.7 %; Neutrophils # (auto) 5.55 K/uL (1.40-6.50); Neutrophils % (auto) 74.4 %; Platelet Count 283 K/uL (130-400); RDW Standard Deviation 41.8 fL (36.4-46.3); Red Blood Count 3.21 M/uL (4.70-6.10); White Blood Count 7.46 K/ul (4.8-10.8)
[2023-07-22 07:30] LABS: Albumin Globulin Ratio 0.5 (0.9-2); Albumin Level 2.1 gm/dl (3.4-5.0); BUN Creatinine Ratio 20.6 (10-20); Bilirubin,Total 0.9 mg/dl (0.2-1.0); Calcium 7.5 mg/dl (8.6-10.3); Creatinine Clr Calc Pharmacy 54.7 ml/min; Est GFR (African American) 60.2 ml/min; Globulin 4.6 gm/dl (2.5-4.0); Magnesium 1.7 mg/dl (1.7-2.4); Phosphorus 4.1 mg/dl (2.5-4.9); Total Protein 6.7 gm/dl (6.0-8.3)
--- NOTE | 2023-07-22 09:36 | Nephrology Progress Note ---
Date of Service July 22, 2023 Assessment & Plan (1) Hyponatremia: (2) Acute kidney injury superimposed on CKD: (3) 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: (4) Multifocal pneumonia: (5) Sepsis: (6) Anemia: Plan 72-year-old gentleman with stage IIIb CKD, b/l cr 1.5-1.6 mg/dl, chronic mild hyponatremia, hypertension, diabetes, coronary artery disease, CHF, admitted with sepsis secondary to diabetic foot ulcer with gangrene and multifocal pneumonia s/p left great toe amputation. Currently on daptomycin. On admission had FLORECITA, creatinine peaked at 2.5 which improved back to baseline. Sodium was 130 which has been staying lower over last few days around 125-126. Urine osmolality >300 Na improved to 129 after restarted on Jardiance yesterday --Continue Jardiance 25 mg/d, Lasix 20 mg daily and salt tab --free water restriction to <1500 ml/d --Encourage increased protein intake --completing venofer Admission and Anticipated Discharge Date Admission Date: July 12, 2023 Subjective Peter was seen and evaluated this morning. Reports feeling tired and exhausted. No confusion. BP fair. Na improved to 129, cr stable. Review of Systems Review of Systems: Detailed review of system was otherwise unremarkable except mentioned above. Physical Exam Constitutional: WD/WN, vitals as above no acute distress Eyes: + anicteric sclerae Neck: normal visual inspection Respiratory: no respiratory distress Auscultation: + diminished lung sounds and + crackles; no wheezes Cardiovascular: Rate/Rhythm: regular rate and regular rhythm Heart Sounds: normal S1 and normal S2 Extremities: + edema (trace b/l LE edema) Musculoskeletal: left foot with wound vac Neurologic: no focal motor deficits Psychiatric: Orientation: alert and oriented x 3 Affect: euthymic affect Results & Data Vital Signs (Past 12 Hours) Vital Signs Temp Pulse Pulse Resp BP BP Pulse Ox 07/22/23 07:16 66 07/22/23 06:59 36.7 C 67 17 143/69 H 96 07/22/23 03:32 36.6 C 68 18 160/81 H 95 07/21/23 23:01 36.7 C 70 16 129/70 96 07/21/23 22:01 70 O2 Del Method 07/22/23 07:16 07/22/23 06:59 Room Air 07/22/23 03:32 Room Air 07/21/23 23:01 Room Air 07/21/23 22:01 PG Care Time/CCT Total # of Minutes Spent Total Time Spent with Patient: Total time spent is greater than 50% in coordination of care (as documented) at patient's floor/unit and/or counseling patient: Coding Level of Care Code 42313 SUB INP/OBS CARE 2/35MIN Diagnoses Hyponatremia E87.1 Acute kidney injury superimposed on CKD N17.9; N18.9 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 I73.9 Multifocal pneumonia J18.9 Sepsis A41.9 Anemia D64.9 Anemia type: unspecified type (6) Anemia Anemia type: unspecified type Qualified Code(s): D64.9 - Anemia, unspecified
[2023-07-22] MEDS: MoRPHine SULFATE 4 MG/ML 1 ML CARP\\VIAL IV STA (13:06)
[2023-07-22] MEDS ORDERED: FLUTICASONE/VILANTEROL 200/25MCG 14 PUFFS/INHALER INH SCH (13:30)
--- NOTE | 2023-07-22 17:25 | Infectious Disease Progress Nt ---
Date of Service July 22, 2023 Assessment & Plan (1) MRSA bacteremia: (2) Atrial fibrillation: (3) Diabetic foot ulcer: (4) 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: (5) Acute kidney injury superimposed on CKD: Plan 72yo M with h/o peripheral arterial disease s/p LLE femoral to anterior tibial artery reverse GSV bypass in 02/2023, recent left 2nd toe infection with other toe eschars s/p LLE 2nd to amputation and debridement of toes 1, 3, and 4 on 06/16/23, CHF, diabetes, CAD s/p CABG, afib, pulmonary HTN, CKD III, chronic HCV, anxiety who presented on 07/11 with generalized weakness and worsening left great toe infection. He was seen outpatient by vascular on 07/06 at which time cellulitis was noticed on great toe and started on cipro until f/u in 1 week, but toe became worse so presented to ED. Here, he has been afebrile, initially hypotensive. WBC initially wnl, Cr 2.48 (improved), AST/ALT wnl. Troponin elevated. CRP 21.79. UA negative. RPP negative. BCx with MRSA. XR left foot with age indeterminant erosive change involving the tuft of the first distal phalanx; correlate clinically for evidence of osteomyelitis. CXR with ill-defined patchy airspace opacities throughout the left lung may represent multifocal pneumonia. S/p OR on 07/14 for left great toe amputation and wound vac placement (per op note, there is purulent drainage present in the toe itself; MT bone was divided, bone was fairly hard, it did not appear to be involved with the osteo, once the toe and the metatarsal head were removed the sesamoid bones were also removed). No OR cx. TTE negative for vegetations. Repeat BCx from 07/18 returned positive for GPC in clusters. ID consulted on 07/20. Waiting on blood cx. Regarding MRSA bacteremia, likely source is his foot infection. However, he has BCx from 07/18 which also have GPC in clusters, raising concerns for persistent bacteremia ongoing for over a week. Source should have been adequately controlled with surgery and no other clear sources/seeding noted on examination. Dual therapy was added with ceftaroline for MRSA while waiting for speciation. If BCx from 07/18 are indeed MRSA, then he will need a REGINE to r/o endocarditis. If he develops any new back pain or spinal tenderness, abdominal pain (ie r/t psoas abscess), new joint pains/swelling, then this needs to be evaluated. He doesnt have any longstanding lines or hardware. For his left foot infection, the foot has been properly debrided and amputated. No residual bone infection noted and therefore from foot infection standpoint, would not need long course of abx. # MRSA bacteremia # Left great toe infection s/p amputation on 07/14 # FLORECITA improving # Diabetes # PAD - f/u BCx from 07/18 and 07/20 - if BCx from 07/18 are MRSA, then please pursue REGINE - continue ceftaroline for dual MRSA therapy stop if BCX from 07/20 are negative x 48h - continue daptomycin 8mg/kg IV q24h - monitor for seeding of infection to spine, joints, other sites (ie psoas abscesses etc) - if 07/18 BCx are MRSA (with negative REGINE) or CONS, then treat with daptomycin for 4 weeks from first neg BCX - if 07/18 BCX are MRSA, with IE on REGINE or REGINE deferred, then treat with daptomycin for 6 weeks from first negative BCx - when he goes home on IV abx, he needs weekly monitoring of CBC w diff, CMP, and CPK with outpatient follow up (PCP or local ID provider) - no statins while on daptomycin ID will continue to follow. If questions or concerns, contact Infectious Disease Call Center . Krys Godinez MD [facility], Division of Infectious Diseases [employer]: [phone] Admission and Anticipated Discharge Date Admission Date: July 12, 2023 Subjective This patient recommendation is based on a telemedicine consult request which was completed asynchronously through chart review and information provided by the primary physician. The patient was not seen or examined today. The evaluation is consultative in nature and all patient care and treatment decisions can either be accepted or rejected by the patient's primary hospital-based treating physician using their own independent medical judgment for their patient. Time Spent Reviewing Chart: 31+ minutes Results & Data Vital Signs (Past 12 Hours) Vital Signs Temp Pulse Pulse Resp BP Pulse Ox O2 Del Method 07/22/23 15:02 65 07/22/23 14:37 36.7 C 64 17 146/66 H 95 Room Air 07/22/23 10:58 36.7 C 67 19 135/68 94 Room Air 07/22/23 07:16 66 07/22/23 06:59 36.7 C 67 17 143/69 H 96 Room Air
--- NOTE | 2023-07-22 18:15 | Billing Data ---
Date of Service July 22, 2023 Coding Level of Care Code 13340 SUB INP/OBS CARE
[2023-07-22] MEDS: DAPTOmycin 750 MG in SYRINGE 0 ML IV SCH (19:49)
--- NOTE | 2023-07-23 07:34 | Hospitalist Progress Note ---
Date of Service July 23, 2023 Assessment & Plan (1) MRSA bacteremia: Plan: MRSA bacteremia/sepsis secondary to diabetic foot ulcer /gangrene status post recent second toe amputation and great toe debridement for peripheral artery disease by Dr. Ambriz performed on 06/16/2023 Now S/P left great toe amputation on 07/14 Blood culture (07/11) +MRSA; repeat cultures (07/18) 1/2 +MRSA; repeat cultures (07/20) pending CT Chest: Numerous multilobar bilateral distribution of irregular centrally cavitary nodular areas of consolidation. Differential considerations include necrotic pneumonia, septic emboli versus pulmonary metastasis. Close follow up on this imaging should be performed. TTE without vegetation; given persistent bacteremia consider REGINE - spoke with cardiology, will likely forego this and tx as presumed endocarditis based on clinical suspicion ID following - initially on daptomycin and cefepime --> now on daptomycin and ceftaroline for dual MRSA coverage with plan to ultimately continue treatment with daptomycin only x6 weeks from first negative BCx Will need weekly monitoring of cbc, cmp, and cpk. Would also recommend repeating blood cultures 1 week after daptomycin is completed Hold statin while on dapto (2) 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: Plan: s/p amputation as above - wound vac in place - f/u wound care and vascular in the upcoming weeks (3) Hyponatremia: Plan: Improving Nephrology following - continue Lasix, jardiance, salt tab - salt tab can be d/c'd once Na normalizes - fluid restriction to <1500 ml/day (4) DM (diabetes mellitus): Plan: Cont. 20 units glargine qam + SSI Hold metformin Cont. Jaundice per nephrology (5) Heart failure with ejection fraction improved from reduced range to preserved range: Plan: CAD and Cardiomyopathy s/p CABG with MOSLEY, afib (kushal operative) -continue cardilol, Lasix, Plavix -initial troponin 39.4, peaked. Suspect demand. (6) Acute kidney injury superimposed on CKD: Plan: Acute kidney injury superimposed on CKD-3, resolved - now at baseline 1.3 Nephrology is following Holding spironolactone (7) Tobacco abuse: Plan: Counseled regarding cessation (8) Atrial fibrillation: Plan: -cardiology following - initially started on amiodarone 400mg BID - transition to 200mg daily -continue Eliquis (9) Anemia: Plan: Anemia of chronic disease s/p venofer per nephrology (10) Liver mass: Plan: Seen on CT imaging -would further evaluate with biopsy - can be done as an outpatient Plan DVT ppx: eliquis FEN/GI: DM2 Code Status: full Dispo: med surg Admission and Anticipated Discharge Date Admission Date: July 12, 2023 Supervising Physician Co-Signing Physician Notes I personally examined the patient and verified all amos points of history and exam, discussed case, and agree with decision making with Dr Nieves No new complaints or issues. Discussed updates on negative follow-up cultures, and overall plan. Vitals noted, in general he is awake and alert pleasant But does appear appear a little uncomfortable. HEENT normocephalic atraumatic mucous membranes moist. Breathing unlabored no accessory muscle use good effort. Skin shows no rashes no pallor or icterus. Neuro without focal deficits. Diabetic foot infection/MRSA osteomyelitis/MRSA bacteremiasuspect most likely wound infection/cellulitis progressed to bacteremia, although obviously it is possible he had spontaneous bacteremia that seeded in his footbut given that he had the preceding foot ulcer/wound it seems more likely that the skin infection is primary. Stable and postopcontinue wound VAC. Bacteremia Unfortunately was persistent. Endocarditis would be a diagnosis of exclusion, given his extensive infection, I would feel it more prudent to treat for a longer durationin discussion with cardiology they agreed, because of this, will treat for a longer duration anyway, and REGINE deferred. With septic emboli in his lungs, and daptomycin not getting much lung penetration, will allow soft Cal[place]en to run slightly longer to ensure that lung issue has been cleared (basing off of data with pneumonia for reference, and given how little pulmonary symptoms he has, I really doubt we would need a very long course of treatment for this, but would definitely appreciate knowing that we have had a reasonable course of treatment with lung penetration)and daptomycin 6 weeks from first negative cultures (which at this point would be 6 weeks from about 07/20) continue to follow cultures, continue supportive care. Anticipate need for rehabas high complexity given the bacteremia, the ongoing antibiotics, the wound VAC/wound care, the therapy needsinitially he had been denied for rehab, but this was submitted before his blood cultures remained positive, and before his situation was much more complicated. At this point I think it quite reasonable to think an acute rehab facility would be most appropriate for his dispositionand assuming his cultures remain negative, we can try again for rehab authorization at the beginning of the week. Decision maker expressed concern about depression, patient has not mentioned this to me, she noted he does not express active suicidality at this time. Subjective Seen at bedside this morning. Feeling a little better today overall. Denies cp, sob, abd pain, dysuria, cough. Normal BMs. Review of Systems Review of Systems: All systems reviewed & are unremarkable except as noted in HPI & below Physical Exam Physical Exam: Constitutional: well-appearing, no acute distress HEENT: NCAT, no conjunctival injection CV: regular rhythm, no murmur appreciated, extremities well-perfused, no LE edema Resp: CTAB, no wheezes/rales/rhonchi appreciated, no increased work of breathing GI: soft, nondistended, nontender MSK: no gross deformities Skin: +wound vac L foot Neuro: AOx3, no focal deficits Results & Data Results & Data Vital Signs (Past 12 Hours) Vital Signs Temp Pulse Resp BP Pulse Ox O2 Del Method 07/23/23 07:32 36.6 C 85 18 136/66 96 Room Air 07/23/23 03:31 36.8 C 67 18 162/71 H 93 Room Air 07/22/23 22:50 36.7 C 63 20 176/76 H 95 Room Air 07/22/23 19:38 36.7 C 64 18 152/73 H 93 Room Air Laboratory Results 07/23/23 07/23/23 07/22/23 Range/Units 07:03 06:46 19:49 WBC Pending RBC Pending Hgb Pending Hct Pending MCV Pending MCH Pending MCHC Pending Plt Count Pending Sodium Pending Potassium Pending Chloride Pending Carbon Dioxide Pending Anion Gap Pending BUN Pending Creatinine Pending Est Cr Clr Drug Dosing Pending Est GFR ( Amer) Pending Est GFR (Non-Af Amer) Pending BUN/Creatinine Ratio Pending Glucose Pending POC Glucose 135 H 91 (70-99) mg/dl Calcium Pending Phosphorus Pending Magnesium Pending Total Creatine Kinase (30-223) U/L Albumin Pending 05/24/24 05/24/24 05/24/24 Range/Units 16:06 10:59 06:42 WBC RBC Hgb Hct MCV MCH MCHC Plt Count Sodium Potassium Chloride Carbon Dioxide Anion Gap BUN Creatinine Est Cr Clr Drug Dosing Est GFR ( Amer) Est GFR (Non-Af Amer) BUN/Creatinine Ratio Glucose POC Glucose 127 H 92 (70-99) mg/dl Calcium Phosphorus Magnesium Total Creatine Kinase 98 (30-223) U/L Albumin Resident Activity Tracking Resident Involvement: Resident Care Provided Care Provided: Adult Hospital Medicine (9) Anemia Anemia type: unspecified type Qualified Code(s): D64.9 - Anemia, unspecified
[2023-07-23 07:54] LABS: Albumin Level 2.1 gm/dl (3.4-5.0); Calcium 7.3 mg/dl (8.6-10.3); Creatinine Clr Calc Pharmacy 50.6 ml/min; Est GFR (African American) 54.8 ml/min; Est GFR (Non-African American) 47.3 ml/min; Magnesium 1.6 mg/dl (1.7-2.4); Phosphorus 3.8 mg/dl (2.5-4.9); Potassium 3.9 mmol/L (3.5-5.1)
[2023-07-23 07:56] LABS: Basophils # (auto) 0.05 K/uL (0.00-0.20); Basophils % (auto) 0.7 %; Eosinophils # (auto) 0.13 K/uL (0.00-0.50); Eosinophils % (auto) 1.9 %; Hemoglobin 8.3 g/dl (14.0-18.0); Immature Granulocytes # (auto) 0.05 K/uL (0.01-0.20); Immature Granulocytes % (auto) 0.7 %; Lymphocytes % (auto) 14.7 %; Mean Corpuscular Hemoglobin 25.5 pg (25.0-34.0); Mean Corpuscular Hgb Conc 31.9 g/dL (32.0-36.0); Mean Platelet Volume 11.1 fL (9.4-12.4); Monocytes # (auto) 0.72 K/uL (0.11-0.59); Monocytes % (auto) 10.6 %; Neutrophils # (auto) 4.86 K/uL (1.40-6.50); Neutrophils % (auto) 71.4 %; Platelet Count 295 K/uL (130-400); RDW Coefficient of Variation 15.3 % (11.5-14.5); RDW Standard Deviation 43.4 fL (36.4-46.3); Red Blood Count 3.25 M/uL (4.70-6.10); White Blood Count 6.81 K/ul (4.8-10.8)
[2023-07-23] MEDS: AMIODARONE 200 MG TAB PO SCH (07:59)
[2023-07-23] MEDS: MAGNESIUM SULFATE / D5W 1 GM/100 ML BAG IV ONE (10:39)
--- NOTE | 2023-07-23 10:59 | Nephrology Progress Note ---
Date of Service July 23, 2023 Assessment & Plan (1) Hyponatremia: (2) Acute kidney injury superimposed on CKD: (3) 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: (4) Multifocal pneumonia: (5) Sepsis: (6) Anemia: Plan 72-year-old gentleman with stage IIIb CKD, b/l cr 1.5-1.6 mg/dl, chronic mild hyponatremia, hypertension, diabetes, coronary artery disease, CHF, admitted with sepsis secondary to diabetic foot ulcer with gangrene and multifocal pneumonia s/p left great toe amputation. Currently on daptomycin. On admission had FLORECITA, creatinine peaked at 2.5 which improved back to baseline. Sodium was 130 which has been staying lower over last few days around 125-126. Urine osmolality >300 Na improved to 131, kidney function staying relatively stable, other electrolyte acceptable. --Continue Jardiance 25 mg/d, Lasix 20 mg daily and salt tab, once sodium normalized, it would be okay to discontinue the salt tab --free water restriction to <1500 ml/d --Encourage increased protein intake --completing Venofer Will sign off, please contact if any further assistance needed. Admission and Anticipated Discharge Date Admission Date: July 12, 2023 Varghese Ross was seen and evaluated this morning. Reports feeling tired and exhausted and continues to have ongoing pain in left foot amputation site. No confusion. BP fair. Na improved to 131, cr stable. Review of Systems Review of Systems: Detailed review of system was otherwise unremarkable except mentioned above. Physical Exam Constitutional: WD/WN, vitals as above no acute distress Respiratory: no respiratory distress Auscultation: + diminished lung sounds and + crackles; no wheezes Cardiovascular: Rate/Rhythm: regular rate and regular rhythm Heart Sounds: normal S1 and normal S2 Musculoskeletal: left foot with wound vac Neurologic: no focal motor deficits Psychiatric: Orientation: alert and oriented x 3 Affect: euthymic affect Results & Data Vital Signs (Past 12 Hours) Vital Signs Temp Pulse Resp BP Pulse Ox O2 Del Method 07/23/23 07:32 36.6 C 85 18 136/66 96 Room Air 07/23/23 03:31 36.8 C 67 18 162/71 H 93 Room Air PG Care Time/CCT Total # of Minutes Spent Total Time Spent with Patient: Total time spent is greater than 50% in coordination of care (as documented) at patient's floor/unit and/or counseling patient: Coding Level of Care Code 61705 SUB INP/OBS CARE MIN Diagnoses Hyponatremia E87.1 Acute kidney injury superimposed on CKD N17.9; N18.9 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 I73.9 Multifocal pneumonia J18.9 Sepsis A41.9 Anemia D64.9 Anemia type: unspecified type (6) Anemia Anemia type: unspecified type Qualified Code(s): D64.9 - Anemia, unspecified
--- NOTE | 2023-07-23 15:02 | Billing Data ---
Date of Service July 23, 2023 Coding Level of Care Code 38003 SUB INP/OBS CARE
[2023-07-24 06:52] LABS: Basophils # (auto) 0.05 K/uL (0.00-0.20); Basophils % (auto) 0.8 %; Eosinophils % (auto) 1.6 %; Hematocrit (blood only) 25.6 % (42.0-52.0); Hemoglobin 8.1 g/dl (14.0-18.0); Immature Granulocytes # (auto) 0.06 K/uL (0.01-0.20); Lymphocytes # (auto) 0.96 K/uL (1.20-3.40); Lymphocytes % (auto) 15.2 %; Mean Corpuscular Hemoglobin 25.5 pg (25.0-34.0); Mean Corpuscular Hgb Conc 31.6 g/dL (32.0-36.0); Mean Corpuscular Volume 80.5 fL (80.0-100.0); Mean Platelet Volume 10.9 fL (9.4-12.4); Monocytes # (auto) 0.63 K/uL (0.11-0.59); Neutrophils # (auto) 4.51 K/uL (1.40-6.50); Neutrophils % (auto) 71.4 %; Platelet Count 314 K/uL (130-400); RDW Coefficient of Variation 15.7 % (11.5-14.5); RDW Standard Deviation 44.5 fL (36.4-46.3); Red Blood Count 3.18 M/uL (4.70-6.10); White Blood Count 6.31 K/ul (4.8-10.8)
--- NOTE | 2023-07-24 07:02 | Hospitalist Progress Note ---
Date of Service July 24, 2023 Assessment & Plan (1) MRSA bacteremia: Plan: MRSA bacteremia/sepsis secondary to diabetic foot ulcer /gangrene status post recent second toe amputation and great toe debridement for peripheral artery disease by Dr. Ambriz performed on 06/16/2023 Now S/P left great toe amputation on 07/14 Blood culture (07/11) +MRSA; repeat cultures (07/18) 1/2 +MRSA; repeat cultures (07/20) pending CT Chest: Numerous multilobar bilateral distribution of irregular centrally cavitary nodular areas of consolidation. Differential considerations include necrotic pneumonia, septic emboli versus pulmonary metastasis. Close follow up on this imaging should be performed. TTE without vegetation; given persistent bacteremia consider REGINE - spoke with cardiology, will likely forego this and tx as presumed endocarditis based on clinical suspicion ID following - initially on daptomycin and cefepime --> now on daptomycin and ceftaroline for dual MRSA coverage with plan to ultimately continue treatment with daptomycin only x6 weeks from first negative BCx Will need weekly monitoring of cbc, cmp, and cpk. Would also recommend repeating blood cultures 1 week after daptomycin is completed Hold statin while on dapto (2) 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: Plan: s/p amputation as above - wound vac in place - f/u wound care and vascular in the upcoming weeks (3) Hyponatremia: Plan: Improving Nephrology following - continue Lasix, jardiance, salt tab - salt tab can be d/c'd once Na normalizes - fluid restriction to <1500 ml/day (4) DM (diabetes mellitus): Plan: Cont. 20 units glargine qam + SSI Hold metformin Cont. Jaundice per nephrology (5) Heart failure with ejection fraction improved from reduced range to preserved range: Plan: CAD and Cardiomyopathy s/p CABG with MOSLEY, afib (kushal operative) -continue cardilol, Lasix, Plavix -initial troponin 39.4, peaked. Suspect demand. (6) Acute kidney injury superimposed on CKD: Plan: Acute kidney injury superimposed on CKD-3, resolved - now at baseline 1.3 Nephrology is following Holding spironolactone (7) Tobacco abuse: Plan: Counseled regarding cessation (8) Atrial fibrillation: Plan: -cardiology following - initially started on amiodarone 400mg BID - transitioned to 200mg daily -continue Eliquis (9) Anemia: Plan: Anemia of chronic disease s/p venofer per nephrology (10) Liver mass: Plan: Seen on CT imaging -would further evaluate with biopsy - can be done as an outpatient but if hospitalized for prolong period of time can try to obtain as inpatient Plan DVT ppx: eliquis FEN/GI: DM2 Code Status: full Dispo: med surg Admission and Anticipated Discharge Date Admission Date: July 12, 2023 Supervising Physician Co-Signing Physician Notes I personally examined the patient and verified all amos points of history and exam, discussed case, and agree with decision making with Dr Nieves No new complaints or issues. was talking about going home and needing wound care at home, and then whenever we discussed about his need for rehab, he reluctantly realized that he was skipping steps in his progressand admitted that he is really not walked on his ownthe best that he could do was make it from the bedside commode to the bedbut he noted even then he really only took 1 step and then collapsed into the bed. Vitals noted, in general he is awake and alert pleasant But does appear appear a little uncomfortable. HEENT normocephalic atraumatic mucous membranes moist. Breathing unlabored no accessory muscle use good effort. Skin shows no rashes no pallor or icterus. Wound VAC in place. Neuro without focal deficits. Diabetic foot infection/MRSA osteomyelitis/MRSA bacteremiasuspect most likely wound infection/cellulitis progressed to bacteremia, although obviously it is possible he had spontaneous bacteremia that seeded in his footbut given that he had the preceding foot ulcer/wound it seems more likely that the skin infection is primary. Stable and postopcontinue wound VAC. Bacteremia Unfortunately was persistent. Endocarditis would be a diagnosis of exclusion, given his extensive infection, I would feel it more prudent to treat for a longer durationin discussion with cardiology they agreed, because of this, will treat for a longer duration anyway, and REGINE deferred. With septic emboli in his lungs, and daptomycin not getting much lung penetration, will allow ceftalorine to run slightly longer to ensure that lung issue has been cleared (basing off of data with pneumonia for reference, and given how little pulmonary symptoms he has, I really doubt we would need a very long course of treatment for this, but would definitely appreciate knowing that we have had a reasonable course of treatment with lung penetration)and daptomycin 6 weeks from first negative cultures (which at this point would be 6 weeks from about 07/20 - ie last day would be 08/31) continue to follow cultures, continue supportive care. Anticipate need for rehabas high complexity given the bacteremia, the ongoing antibiotics, the wound VAC/wound care, the therapy needsinitially he had been denied for rehab, but this was submitted before his blood cultures remained positive, and before his situation was much more complicated. At this point I think it quite reasonable to think an acute rehab facility would be most appropriate for his dispositionand assuming his cultures remain negative, we can try again for rehab authorization at the beginning of the week. Decision maker expressed concern about depression, patient has not mentioned this to me, she noted he does not express active suicidality at this time. Subjective Seen at bedside this morning. Feeling even better today overall. Denies cp, sob, abd pain, dysuria, cough. Normal BMs. Review of Systems Review of Systems: All systems reviewed & are unremarkable except as noted in HPI & below Physical Exam Physical Exam: Constitutional: well-appearing, no acute distress HEENT: NCAT, no conjunctival injection CV: regular rhythm, no murmur appreciated, extremities well-perfused, no LE edema Resp: CTAB, no wheezes/rales/rhonchi appreciated, no increased work of breathing GI: soft, nondistended, nontender MSK: no gross deformities Skin: +wound vac L foot Neuro: AOx3, no focal deficits Results & Data Results & Data Vital Signs (Past 12 Hours) Vital Signs Temp Pulse Resp BP Pulse Ox O2 Del Method 07/24/23 05:38 88 94 Room Air 07/23/23 21:50 Room Air 07/23/23 19:21 36.7 C 66 16 157/73 H 92 Room Air Laboratory Results 07/24/23 07/24/23 07/23/23 Range/Units 07:42 06:26 20:35 WBC 6.31 (4.8-10.8) K/ul RBC 3.18 L (4.70-6.10) M/uL Hgb 8.1 L (14.0-18.0) g/dl Hct 25.6 L (42.0-52.0) % MCV 80.5 (80.0-100.0) fL MCH 25.5 (25.0-34.0) pg MCHC 31.6 L (32.0-36.0) g/dL RDW Std Deviation 44.5 (36.4-46.3) fL RDW Coeff of Josh 15.7 H (11.5-14.5) % Plt Count 314 (130-400) K/uL MPV 10.9 (9.4-12.4) fL Immature Gran % (Auto) 1.0 % Neut % (Auto) 71.4 % Lymph % (Auto) 15.2 % [place] % (Auto) 10.0 % Eos % (Auto) 1.6 % Baso % (Auto) 0.8 % Neut # (Auto) 4.51 (1.40-6.50) K/uL Lymph # (Auto) 0.96 L (1.20-3.40) K/uL [place] # (Auto) 0.63 H (0.11-0.59) K/uL Eos # (Auto) 0.10 (0.00-0.50) K/uL Baso # (Auto) 0.05 (0.00-0.20) K/uL Immature Gran # (Auto) 0.06 (0.01-0.20) K/uL Sodium 133 L (136-145) mmol/L Potassium 3.9 (3.5-5.1) mmol/L Chloride 102 (98-107) mmol/L Carbon Dioxide 23 (21-32) mmol/L Anion Gap 8 (3-11) BUN 21 (6-23) mg/dl Creatinine 1.38 (0.6-1.4) mg/dl Est Cr Clr Drug Dosing 53.9 ml/min Est GFR ( Amer) 59.2 ml/min Est GFR (Non-Af Amer) 51.1 ml/min BUN/Creatinine Ratio 15.2 (10-20) Glucose 118 H (70-99(Fasting)) mg/dl POC Glucose 142 H 133 H (70-99) mg/dl Calcium 7.3 L (8.6-10.3) mg/dl Phosphorus 3.4 (2.5-4.9) mg/dl Magnesium 1.6 L (1.7-2.4) mg/dl Albumin 2.1 L (3.4-5.0) gm/dl 07/23/23 07/23/23 Range/Units 16:30 11:08 WBC (4.8-10.8) K/ul RBC (4.70-6.10) M/uL Hgb (14.0-18.0) g/dl Hct (42.0-52.0) % MCV (80.0-100.0) fL MCH (25.0-34.0) pg MCHC (32.0-36.0) g/dL RDW Std Deviation (36.4-46.3) fL RDW Coeff of Josh (11.5-14.5) % Plt Count (130-400) K/uL MPV (9.4-12.4) fL Immature Gran % (Auto) % Neut % (Auto) % Lymph % (Auto) % [place] % (Auto) % Eos % (Auto) % Baso % (Auto) % Neut # (Auto) (1.40-6.50) K/uL Lymph # (Auto) (1.20-3.40) K/uL [place] # (Auto) (0.11-0.59) K/uL Eos # (Auto) (0.00-0.50) K/uL Baso # (Auto) (0.00-0.20) K/uL Immature Gran # (Auto) (0.01-0.20) K/uL Sodium (136-145) mmol/L Potassium (3.5-5.1) mmol/L Chloride (98-107) mmol/L Carbon Dioxide (21-32) mmol/L Anion Gap (3-11) BUN (6-23) mg/dl Creatinine (0.6-1.4) mg/dl Est Cr Clr Drug Dosing ml/min Est GFR ( Amer) ml/min Est GFR (Non-Af Amer) ml/min BUN/Creatinine Ratio (10-20) Glucose (70-99(Fasting)) mg/dl POC Glucose 132 H 129 H (70-99) mg/dl Calcium (8.6-10.3) mg/dl Phosphorus (2.5-4.9) mg/dl Magnesium (1.7-2.4) mg/dl Albumin (3.4-5.0) gm/dl Resident Activity Tracking Resident Involvement: Resident Care Provided Care Provided: Adult [facility] Medicine (9) Anemia Anemia type: unspecified type Qualified Code(s): D64.9 - Anemia, unspecified
[2023-07-24 07:43] LABS: Albumin Level 2.1 gm/dl (3.4-5.0); BUN Creatinine Ratio 15.2 (10-20); Calcium 7.3 mg/dl (8.6-10.3); Creatinine Clr Calc Pharmacy 53.9 ml/min; Est GFR (African American) 59.2 ml/min; Est GFR (Non-African American) 51.1 ml/min; Magnesium 1.6 mg/dl (1.7-2.4); Phosphorus 3.4 mg/dl (2.5-4.9); Potassium 3.9 mmol/L (3.5-5.1)
[2023-07-24] MEDS: MAGNESIUM SULFATE / D5W 1 GM/100 ML BAG IV ONE (09:01)
--- NOTE | 2023-07-24 16:51 | Billing Data ---
Date of Service July 24, 2023 Coding Level of Care Code 74607 SUB INP/OBS CARE
[2023-07-25 07:10] LABS: Basophils # (auto) 0.04 K/uL (0.00-0.20); Basophils % (auto) 0.6 %; Eosinophils # (auto) 0.15 K/uL (0.00-0.50); Eosinophils % (auto) 2.4 %; Hematocrit (blood only) 24.6 % (42.0-52.0); Hemoglobin 7.8 g/dl (14.0-18.0); Immature Granulocytes # (auto) 0.05 K/uL (0.01-0.20); Immature Granulocytes % (auto) 0.8 %; Lymphocytes # (auto) 1.01 K/uL (1.20-3.40); Mean Corpuscular Hemoglobin 25.6 pg (25.0-34.0); Mean Corpuscular Hgb Conc 31.7 g/dL (32.0-36.0); Mean Corpuscular Volume 80.7 fL (80.0-100.0); Mean Platelet Volume 10.9 fL (9.4-12.4); Monocytes # (auto) 0.73 K/uL (0.11-0.59); Monocytes % (auto) 11.6 %; Neutrophils # (auto) 4.34 K/uL (1.40-6.50); Neutrophils % (auto) 68.6 %; Platelet Count 303 K/uL (130-400); RDW Coefficient of Variation 15.8 % (11.5-14.5); Red Blood Count 3.05 M/uL (4.70-6.10); White Blood Count 6.32 K/ul (4.8-10.8)
[2023-07-25 07:24] LABS: Albumin Level 2.2 gm/dl (3.4-5.0); BUN Creatinine Ratio 16.1 (10-20); Calcium 7.3 mg/dl (8.6-10.3); Creatinine Clr Calc Pharmacy 54.3 ml/min; Est GFR (African American) 59.7 ml/min; Est GFR (Non-African American) 51.5 ml/min; Magnesium 1.6 mg/dl (1.7-2.4); Phosphorus 3.3 mg/dl (2.5-4.9); Potassium 3.7 mmol/L (3.5-5.1)
[2023-07-25 08:05] LABS: Microcytosis Present
--- NOTE | 2023-07-25 08:48 | Hospitalist Progress Note ---
Date of Service July 25, 2023 Assessment & Plan (1) MRSA bacteremia: Plan: MRSA bacteremia/sepsis secondary to diabetic foot ulcer /gangrene status post recent second toe amputation and great toe debridement for peripheral artery disease by Dr. Ambriz performed on 06/16/2023 Now S/P left great toe amputation secondary to Gangrene to peripheral vascular disease on 07/14 Blood culture (07/11) +MRSA; repeat cultures (07/18) 1/2 +MRSA; repeat cultures (07/20) negative at this time stopping ceftaroline CT Chest: Numerous multilobar bilateral distribution of irregular centrally cavitary nodular areas of consolidation. Differential considerations include ne crotic pneumonia, septic emboli versus pulmonary metastasis. Close follow up on this imaging should be performed. TTE without vegetation; given persistent bacteremia consider REGINE - spoke with cardiology, will likely forego this and tx as presumed endocarditis based on clinical suspicion ID following - initially on daptomycin and cefepime --> now on daptomycin and ceftaroline for dual MRSA coverage with plan to ultimately continue treatment with daptomycin only x6 weeks from first negative BCx(07/21/23->09/01/23) Will need weekly monitoring of cbc, cmp, and cpk. Would also recommend repeating blood cultures 1 week after daptomycin is completed Hold statin while on dapto (2) Heart failure with ejection fraction improved from reduced range to preserved range: Plan: CAD and Cardiomyopathy s/p CABG with MOSLEY, afib (kushal operative) -continue cardilol, Lasix, Plavix -initial troponin 39.4, peaked. Suspect demand. (3) Atrial fibrillation: Plan: -cardiology following - initially started on amiodarone 400mg BID - transitioned to 200mg daily -continue Eliquis (4) DM (diabetes mellitus): Plan: Cont. 20 units glargine qam + SSI Hold metformin Cont. Jaundice per nephrology (5) Hyponatremia: Plan: Improving Nephrology following - continue Lasix, jardiance, salt tab - salt tab can be d/c'd once Na normalizes - fluid restriction to <1500 ml/day (6) Acute kidney injury superimposed on CKD: Plan: Acute kidney injury superimposed on CKD-3, resolved - now at baseline 1.3 Nephrology is following Holding spironolactone Anemia of chronic disease s/p venofer per nephrology CAUTION as on Eliquis (7) Tobacco abuse: Plan: Counseled regarding cessation (8) Liver mass: Plan: Seen on CT imaging -would further evaluate with biopsy - can be done as an outpatient but if hospitalized for prolong period of time can try to obtain as inpatient Plan DVT ppx: eliquis FEN/GI: DM2 Code Status: full Dispo: med surg Admission and Anticipated Discharge Date Admission Date: July 12, 2023 Subjective Patient's biggest complaint is buttock pain. Patient has had revision of his previous toe with amputation of the left great and second toe with wound VAC in place. Patient with persistent discomfort which she describes as burning or tingling Physical Exam Physical Exam: pt is awake and alert wound vacc on left foot cardiac is regular without murmur Results & Data Results & Data Vital Signs (Past 12 Hours) Vital Signs Temp Pulse Resp BP Pulse Ox O2 Del Method 07/25/23 07:27 97.3 F L 64 16 161/74 H 92 Room Air 07/24/23 22:02 97.7 F 62 18 143/65 H 91 Room Air 07/24/23 21:35 Room Air PG Care Time/CCT Total # of Minutes Spent Total Time Spent with Patient: Total time spent is greater than 50% in coordination of care (as documented) at patient's floor/unit and/or counseling patient: Coding Level of Care Code 36934 SUB INP/OBS CARE 2/35MIN Diagnoses MRSA bacteremia R78.81; B95.62 Heart failure with ejection fraction improved from reduced range to preserved range I50.32 Atrial fibrillation I48.91 DM (diabetes mellitus) E11.9 Hyponatremia E87.1 Acute kidney injury superimposed on CKD N17.9; N18.9 Tobacco abuse Z72.0 Liver mass R16.0
[2023-07-25] MEDS: GABAPENTIN 300 MG CAP PO SCH (21:57)
--- NOTE | 2023-07-26 07:12 | Infectious Disease Progress Nt ---
Date of Service July 26, 2023 Assessment & Plan (1) MRSA bacteremia: (2) Atrial fibrillation: (3) Diabetic foot ulcer: (4) 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: (5) Acute kidney injury superimposed on CKD: Admission and Anticipated Discharge Date Admission Date: July 12, 2023 Subjective This patient recommendation is based on a telemedicine consult request which was completed asynchronously through chart review and information provided by the primary physician. The patient was not seen or examined today. The evaluation is consultative in nature and all patient care and treatment decisions can either be accepted or rejected by the patient's primary hospital-based treating physician using their own independent medical judgment for their patient. Results & Data Vital Signs (Past 12 Hours) Vital Signs Temp Pulse Resp BP Pulse Ox O2 Del Method 07/25/23 20:49 36.6 C 61 16 157/70 H 94 Room Air
[2023-07-26 08:00] LABS: Basophils # (auto) 0.05 K/uL (0.00-0.20); Basophils % (auto) 0.8 %; Eosinophils # (auto) 0.22 K/uL (0.00-0.50); Eosinophils % (auto) 3.6 %; Hematocrit (blood only) 27.4 % (42.0-52.0); Hemoglobin 8.7 g/dl (14.0-18.0); Immature Granulocytes # (auto) 0.06 K/uL (0.01-0.20); Lymphocytes # (auto) 0.93 K/uL (1.20-3.40); Lymphocytes % (auto) 15.2 %; Mean Corpuscular Hemoglobin 26.1 pg (25.0-34.0); Mean Corpuscular Hgb Conc 31.8 g/dL (32.0-36.0); Mean Corpuscular Volume 82.3 fL (80.0-100.0); Mean Platelet Volume 10.3 fL (9.4-12.4); Monocytes # (auto) 0.71 K/uL (0.11-0.59); Monocytes % (auto) 11.6 %; Neutrophils # (auto) 4.16 K/uL (1.40-6.50); Neutrophils % (auto) 67.8 %; Platelet Count 321 K/uL (130-400); RDW Coefficient of Variation 16.1 % (11.5-14.5); Red Blood Count 3.33 M/uL (4.70-6.10); White Blood Count 6.13 K/ul (4.8-10.8)
[2023-07-26 08:13] LABS: BUN Creatinine Ratio 14.1 (10-20); Calcium 7.7 mg/dl (8.6-10.3); Creatinine Clr Calc Pharmacy 58.1 ml/min; Est GFR (African American) 64.8 ml/min; Est GFR (Non-African American) 55.9 ml/min; Potassium 3.8 mmol/L (3.5-5.1)
[2023-07-26] MEDS: MoRPHine SULFATE 4 MG/ML 1 ML CARP\\VIAL IV PRN (08:39)
--- NOTE | 2023-07-26 09:35 | Infectious Disease Progress Nt ---
Date of Service July 26, 2023 Assessment & Plan (1) MRSA bacteremia: (2) Atrial fibrillation: (3) Diabetic foot ulcer: (4) 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: (5) Acute kidney injury superimposed on CKD: Plan 72yo M with h/o peripheral arterial disease s/p LLE femoral to anterior tibial artery reverse GSV bypass in 02/2023, recent left 2nd toe infection with other toe eschars s/p LLE 2nd to amputation and debridement of toes 1, 3, and 4 on 06/16/23, CHF, diabetes, CAD s/p CABG, afib, pulmonary HTN, CKD III, chronic HCV, anxiety who presented on 07/11 with generalized weakness and worsening left great toe infection. He was seen outpatient by vascular on 07/06 at which time cellulitis was noticed on great toe and started on cipro until f/u in 1 week, but toe became worse so presented to ED. Here, he has been afebrile, initially hypotensive. WBC initially wnl, Cr 2.48 (improved), AST/ALT wnl. Troponin elevated. CRP 21.79. UA negative. RPP negative. BCx with MRSA. XR left foot with age indeterminant erosive change involving the tuft of the first distal phalanx; correlate clinically for evidence of osteomyelitis. CXR with ill-defined patchy airspace opacities throughout the left lung may represent multifocal pneumonia. S/p OR on 07/14 for left great toe amputation and wound vac placement (per op note, there is purulent drainage present in the toe itself; MT bone was divided, bone was fairly hard, it did not appear to be involved with the osteo, once the toe and the metatarsal head were removed the sesamoid bones were also removed). No OR cx. TTE negative for vegetations. Repeat BCx from 07/18 returned positive for MRSA. ID consulted on 07/20. Cardiology deferred REGINE. He had a CT chest for SOB which showed numerous multilobar bilateral distribution of irregular centrally cavitary nodular areas of consolidation, ddx includes necrotic pneumonia, septic emboli vs pulmonary metastasis, R>L pleural effusions, numerous subcentimeter scattered bl solid pulmonary nodules. Patient without any respiratory symptoms. I suspect the chest CT imaging findings could be septic emboli, making it more concerning for endocarditis. Since no clinical s/o a pneumonia, I will hold off on switching abx to vancomycin (note daptomycin does not have lung coverage). Would consider discussing with cardiology again for REGINE. If there is a large vegetation, then surgery may need to be involved. He had c/o tailbone pain, but no tenderness on back on examination. Primary source likely from his left foot infection. # MRSA bacteremia # Multiple cavitary nodular lesions possibly representing septic emboli no respiratory sx # Left great toe infection s/p amputation on 07/14 # FLORECITA improving # Diabetes # PAD - consider discussing with cardiology regarding REGINE if large vegetation or abscess, would need surgery involvement - continue daptomycin 8mg/kg (750mg) IV q24h - if he develops respiratory symptoms, change abx to vancomycin for lung coverage - current abx plan will be to treat for 6 weeks for prolonged MRSA bacteremia with possible endocarditis/endovascular source (start 07/20, eot 08/30) - monitor CBC w diff, CMP, and CPK (weekly outpatient, at least twice weekly inpatient) - no statins while on daptomycin - hell need follow up with PCP or local ID provider on discharge ID will continue to follow. If questions or concerns, contact Infectious Disease Call Center . Krys Godinez MD [facility], Division of Infectious Diseases [facility]: [phone] Admission and Anticipated Discharge Date Admission Date: July 12, 2023 Subjective Subsequent visit was provided via telemedicine using two-way real-time interactive telecommunication between the patient and the telemedicine provider. For the duration of the visit, the provider was performing the assessment from a different facility than the patient. This includesuse of bluetooth stethoscope forauscultationperformed by the telepresenter that the telemed icine provider can hear if described in the physical exam. Reconciliation Manager contact information: Please call [facility] Call Center . (Phone Number For Physician Use Only) After establishing a telemedicine visit, patient was: Patient was verified with two unique identifiers, Patient/authorized rep acknowledged consent and u nderstanding and Gave permission to continue telehealth session Time Spent with Patient: Subsequent => 55 min Patient without SOB, no pain. No back pain. He had tailbone pain which is now resolved after a pad was placed there. Physical Exam Physical Exam: General: Awake, alert, no acute distress HEENT: NC/AT, EOMI, mmm Neck: supple Abdomen: soft, NT/ND Back: no spinal tenderness Results & Data Vital Signs (Past 12 Hours) Vital Signs Temp Pulse Resp BP BP Pulse Ox O2 Del Method 07/26/23 09:19 Room Air 07/26/23 07:28 36.8 C 75 20 181/78 H 188/83 H 93 Room Air Laboratory Results Labs reviewed. Diagnostic Findings Imaging reviewed.
--- NOTE | 2023-07-26 10:17 | Hospitalist Progress Note ---
Date of Service July 26, 2023 Assessment & Plan (1) MRSA bacteremia: Plan: MRSA bacteremia/sepsis secondary to diabetic foot ulcer /gangrene status post recent second toe amputation and great toe debridement for peripheral artery disease by Dr. Ambriz performed on 06/16/2023 Now S/P left great toe amputation secondary to Gangrene to peripheral vascular disease on 07/14 Blood culture (07/11) +MRSA; repeat cultures (07/18) 1/2 +MRSA; repeat cultures (07/20) negative at this time stopping ceftaroline CT Chest: Numerous multilobar bilateral distribution of irregular centrally cavitary nodular areas of consolidation. Differential considerations include ne crotic pneumonia, septic emboli versus pulmonary metastasis. Close follow up on this imaging should be performed. TTE without vegetation; given persistent bacteremia consider REGINE - spoke with cardiology, will likely forego this and tx as presumed endocarditis based on clinical suspicion ID following - initially on daptomycin and cefepime --> now on daptomycin and ceftaroline for dual MRSA coverage with plan to ultimately continue treatment with daptomycin only x6 weeks from first negative BCx(07/21/23->09/01/23) Will need weekly monitoring of cbc, cmp, and cpk. Would also recommend repeating blood cultures 1 week after daptomycin is completed Hold statin while on dapto Diabetic foot infection/MRSA osteomyelitis/MRSA bacteremiasuspect most likely wound infection/cellulitis progressed to bacteremia, although obviously it is possible he had spontaneous bacteremia that seeded in his footbut given that he had the preceding foot ulcer/wound it seems more likely that the skin infection is primary. Stable and postopcontinue wound VAC. Bacteremia Unfortunately was persistent. Endocarditis would be a diagnosis of exclusion, given his extensive infection, D/W ID on 07/25 Plan is for REGINE to exclude vegetation and endocarditis given porlonged bacteremia and posible septic emboli. Withpossible septic emboli in his lungs, and daptomycin not getting much lung penetration, will allow ceftalorine to run slightly longer to ensure that lung issue has been cleared (basing off of data with pneumonia for reference, and given how little pulmonary symptoms he has, I really doubt we would need a very long course of treatment for this, but would definitely appreciate knowing that we have had a reasonable course of treatment with lung penetration)and dap tomycin 6 weeks from first negative cultures (which at this point would be 6 weeks from about 07/20 - ie last day would be /) continue to follow cultures, continue supportive care. Anticipate need for rehabas high complexity given the bacteremia, the ongoing antibiotics, the wound VAC/wound care, the therapy needsinitially he had been denied for rehab, but this was submitted before his blood cultures remained positive, and before his situation was much more complicated. At this point I think it quite reasonable to think an acute rehab facility would be most appropriate for his dispositionand assuming his cultures remain negative, case management working on getting rehab placed. (2) Heart failure with ejection fraction improved from reduced range to preserved range: Plan: CAD and Cardiomyopathy s/p CABG with MOSLEY, afib (kushal operative) -continue cardilol, Lasix, Plavix -initial troponin 39.4, peaked. Suspect demand. (3) Atrial fibrillation: Plan: -cardiology following - initially started on amiodarone 400mg BID - transitioned to 200mg daily -continue Eliquis (4) DM (diabetes mellitus): Plan: Cont. 20 units glargine qam + SSI Hold metformin Cont. Jaundice per nephrology (5) Hyponatremia: Plan: Improving Nephrology following - continue Lasix, jardiance, salt tab - salt tab can be d/c'd once Na normalizes - fluid restriction to <1500 ml/day (6) Acute kidney injury superimposed on CKD: Plan: Acute kidney injury superimposed on CKD-3, resolved - now at baseline 1.3 Nephrology is following Holding spironolactone Anemia of chronic disease s/p venofer per nephrology CAUTION as on Eliquis (7) Tobacco abuse: Plan: Counseled regarding cessation (8) Liver mass: Plan: Seen on CT imaging -would further evaluate with biopsy - can be done as an outpatient but if hospitalized for prolong period of time can try to obtain as inpatient Plan DVT ppx: eliquis FEN/GI: DM2 Code Status: full Dispo: med surg Admission and Anticipated Discharge Date Admission Date: July 12, 2023 Subjective 72 yo male reports no new symptoms. Patient denies any resporatory symtpos. Review of Systems Review of Systems: All systems reviewed & are unremarkable except as noted in HPI & below Physical Exam Physical Exam: Patient is resting comfortably. HEENT: Pupils are equal and reactive to light and accommodation. Extraocular movements are intact. The sclerae are anicteric. Neuro: Cranial nerves intact Lungs: Clear to auscultation bilaterally. He has good air movement without use of accessory muscles. No rales wheezes or rhonchi. Cardiac: Heart demonstrates a regular rate and rhythm. Normal S1 and S2. No murmurs on examination. Extremities: No clubbing or cyanosis in the hands. Discoloration an eschar noted on the left foot primarily the toes. Results & Data Results & Data Vital Signs (Past 12 Hours) Vital Signs Temp Pulse Resp BP BP Pulse Ox O2 Del Method 07/26/23 09:19 Room Air 07/26/23 07:28 36.8 C 75 20 181/78 H 188/83 H 93 Room Air PG Care Time/CCT Total # of Minutes Spent Total Time Spent with Patient: Total time spent is greater than 50% in coordination of care (as documented) at patient's floor/unit and/or counseling patient: Coding Level of Care Code 57120 SUB INP/OBS CARE 3/50MIN Diagnoses MRSA bacteremia R78.81; B95.62 Heart failure with ejection fraction improved from reduced range to preserved range I50.32 Atrial fibrillation I48.91 DM (diabetes mellitus) E11.9 Hyponatremia E87.1 Acute kidney injury superimposed on CKD N17.9; N18.9 Tobacco abuse Z72.0 Liver mass R16.0
--- NOTE | 2023-07-26 15:24 | Anesthesiology Consultation ---
Date of Service July 26, 2023 Assessment & Plan Chart Review Chart Review: Acceptable Risk for Surgery Consults Requested none ASA ASA3 Proposed Anesthesia Anesthesia Type: MAC Risk / Benefits Reviewed With: PT / POA / Parent / Guardian, Accepts Plan and Informed Consent Obtained History Surgery Operation Date: 07/15/23 10:30 Proposed Procedures p Left Great Toe Amputation - Bhavin Ambriz MD Operation Date: 07/27/23 07:15 Proposed Procedures p Transesophageal Echo w/Anesthesia - Salvador Aguirre MD Height/Weight Height: 6 ft Weight: 92.3 kg Allergies Allergy/AdvReac Type Severity Reaction Status Date / Time cat dander Allergy Intermediate CONGESTION Verified 07/12/23 02:04 Medications Home Medications Medication Instructions Recorded Confirmed Last Taken atorvastatin 80 mg tablet (Lipitor) 80 mg PO QAM 05/15/19 07/12/23 07/09/23 clopidogrel 75 mg tablet 75 mg PO QAM 05/15/19 07/12/23 07/09/23 sacubitril 24 mg-valsartan 26 mg 1 tab PO BID 12/07/21 07/12/23 07/09/23 tablet (Entresto) empagliflozin 25 mg tablet 25 mg PO QAM 05/30/22 07/12/23 07/09/23 (Jardiance) carvedilol 12.5 mg tablet 12.5 mg PO BID #180 tabs 08/17/22 07/12/23 07/09/23 amlodipine 5 mg tablet (Norvasc) 5 mg PO QAM 05/27/23 07/12/23 07/09/23 furosemide 20 mg tablet 20 mg PO QAM 05/27/23 07/12/23 07/09/23 gabapentin 100 mg capsule 100 mg PO DAILY 05/27/23 07/12/23 07/09/23 apixaban 5 mg tablet (Eliquis) 5 mg PO BID 06/01/23 07/12/23 07/09/23 insulin glargine 100 unit/mL (3 44 unit subcut QAM 06/01/23 07/12/23 07/09/23 mL) subcutaneous pen (Lantus Solostar U-100 Insulin) sertraline 50 mg tablet (Zoloft) 75 mg PO QAM 06/01/23 07/12/23 07/09/23 oxycodone-acetaminophen 5 mg-325 1 tab PO Q8H PRN pain #20 tabs 06/16/23 07/12/23 Unknown mg tablet (Percocet) spironolactone 25 mg tablet 25 mg PO QAM 06/16/23 07/12/23 07/09/23 (Aldactone) metformin 1,000 mg tablet 1,000 mg PO BID 07/12/23 07/12/23 07/09/23 Active Medications Generic Name Dose Route Start Last Admin Trade Name Eddy PRN Reason Stop Dose Admin Amiodarone HCl 200 mg 07/23/23 09:00 07/26/23 08:43 Amiodarone 200 Mg Tab PO 08/22/23 08:59 200 mg QAM CARLTON Administration Apixaban 5 mg 07/18/23 21:00 07/26/23 20:57 Apixaban 5 Mg Tablet PO 08/17/23 20:59 5 mg BID CARLTON Administration Carvedilol 3.125 mg 07/13/23 17:00 07/26/23 17:42 Carvedilol 3.125 Mg Tab PO 08/12/23 16:59 3.125 mg BIDM CARLTON Administration Clopidogrel Bisulfate 75 mg 07/19/23 09:00 07/26/23 08:44 Clopidogrel Bisulfate 75 Mg Tab PO 08/18/23 08:59 75 mg QAM CARLTON Administration Empagliflozin 25 mg 07/21/23 10:30 07/26/23 08:44 Empagliflozin 25 Mg Tab PO 08/20/23 10:29 25 mg DAILY CARLTON Administration Furosemide 20 mg 07/19/23 16:00 07/26/23 08:44 Furosemide 20 Mg Tab PO 08/18/23 15:59 20 mg QAM CARLTON Administration Gabapentin 300 mg 07/25/23 21:00 07/26/23 20:57 Gabapentin 300 Mg Cap PO 08/24/23 20:59 300 mg BID CARLTON Administration Pantoprazole Sodium 40 mg/ 10 mls @ 5 mls/min 07/12/23 11:00 07/19/23 11:03 Syringe IV 08/11/23 10:59 5 mls/min DAILY@1100 CARLTON Administration Daptomycin 750 mg/ Syringe 15 mls @ 7.5 mls/min 07/22/23 21:00 07/26/23 21:06 IV 08/04/23 23:59 7.5 mls/min Q24H CARLTON Administration Protocol Insulin Aspart 0 units 07/12/23 11:30 07/26/23 21:07 Insulin Aspart Per Unit Charge SC 08/11/23 05:59 5 units ACHS CARLTON Administration Insulin Glargine 20 units 07/12/23 09:00 07/26/23 08:54 Lantus Per Unit Charge SQ 08/11/23 08:59 20 units QAM CARLTON Administration Morphine Sulfate 4 mg 07/26/23 03:54 07/27/23 00:06 Morphine Sulfate 4 Mg/Ml 1 Ml Carp\\Vial IV 08/09/23 03:53 4 mg Q3H PRN Administration Pain Pantoprazole Sodium 40 mg 07/20/23 11:00 07/26/23 12:29 Pantoprazole 40 Mg Tab PO 08/19/23 10:59 40 mg DAILY@1100 CARLTON Administration Sodium Chloride 2 sprays 07/13/23 06:45 07/23/23 07:56 Sodium Chloride 0.65% Na Soln 45 Ml ([place]) NA 08/12/23 06:44 2 sprays Q2H PRN Administration Nasal Congestion Sodium Chloride 1 gm 07/19/23 21:00 07/26/23 20:57 Sodium Chloride 1 Gm Tablet PO 08/18/23 20:59 1 gm BID CARLTON Administration NPO Date Last Intake of Fluids: 07/26/23 Time Last Intake of Fluids: 23:59 Last Intake of Fluids Comment: sip with med Date Last Intake of Solids: 07/26/23 Time Last Intake of Solids: 23:59 Past Medical History Medical History (Updated 07/26/23 @ 15:20 by Divya Callahan DO) History of atrial fibrillation CAD (coronary artery disease) s/p CABG x 2 vessel June 2021 Acute HFrEF (heart failure with reduced ejection fraction) Follows with [facility] EF 50-55% per 05/2022 ECHO Cardiomyopathy Dyslipidemia Tobacco abuse smoke-12/day DM (diabetes mellitus) Atherosclerosis of artery of left lower extremity s/p left leg angiogram procedure with [employer] of proximal vein bypass 05/27/23 s/p left leg femoral artery to posterior tibial artery reverse sap[place] [facility] [place] s/p left SFA and popliteal stents History of anemia History of anxiety History of alcohol abuse started 1965, quit 1999 Hx of drug abuse started 1965, quit 1999 "used every drug known to man">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, stayed in for 13 years IV drug abuse hx-quit in 1981 History of hepatitis B hx IV drug use Hepatitis C virus has had since the late >no tx, "never had any trouble with it" Heart failure with mid-range ejection fraction Follows with [facility] EF 50-55% per 05/2022 ECHO Type 2 diabetes mellitus HTN (hypertension) Exercise / Class Metabolic Activity II 4-5 Yardwork/Stairs/Walk up hill Past Surgical History Surgical History (Updated 07/26/23 @ 15:20 by Divya Callahan, DO) History of amputation of great toe S/P CABG x 2 ~2021, went to ER w/"anxiety," found to be in congestive heart failure, had more cardiac testing, sent for f[facility]u w[facility], done @[facility]; f/u dr. mckeon Hx of cardiac catheterization 06/2021 [facility] History of open reduction and internal fixation (ORIF) procedure rt elbow and lt wrist>hardware intact Hx of colonoscopy History of left knee surgery 1988-tibial plateau reconstruction History of eye surgery retina History of cataract extraction rt/lt Past Anesthesia History No Hx of Anesthesia Complications and No Family Hx of Anesthesia Complications History of PONV No Hx of PONV and No Hx of Motion Sickness Social History Smoking Status: Current every day smoker tobacco type: cigarettes Smoking cigarettes per day: 12 per day >>advised Do You Dip or Chew Tobacco: No Hx Alcohol Use: No Hx Substance Use: Yes substance use type: former substance user and opiates Substance Use Type Other:: IV drugs Last Used Substance Other:: quit 1999-stated "used every drug known to man" Physical Exam Vital Signs Last Vital Signs Temp 37.7 C H 07/26/23 21:07 Pulse 72 07/26/23 21:07 Resp 16 07/26/23 21:07 BP 165/68 H 07/26/23 21:07 Pulse Ox 92 07/26/23 21:07 O2 Del Method Room Air 07/26/23 21:07 O2 Flow Rate 2 07/15/23 12:15 ENMT Mouth: + dentition abnormality (2 teeth bottom remain); no TMJ abnormality Thyromental Distance: > or= 3.5 Finger Breadths Mallampati Class: III Neck normal visual inspection and trachea midline; neck extension not limited Respiratory normal respiratory effort Auscultation: lungs clear to auscultation bilaterally Cardiovascular Rate/Rhythm: regular rate and regular rhythm Heart Sounds: no murmur Musculoskeletal Spine: normal cervical ROM Extremities: full ROM of extremities Neurologic moves all extremities Psychiatric Orientation: alert and oriented x 3 Testing Laboratory Results 07/27/23 06:12 PT 12.0 Seconds (9.0-12.0) 07/14/23 06:23 INR 1.1 (0.9-1.1) 07/14/23 06:23 APTT 39 Seconds (21-31) H 07/15/23 06:54 Hemoglobin A1c 12.1 % (4.5-5.6) H 07/12/23 00:24 Urine Color Dark Yellow 07/12/23 00:57 Urine Appearance Cloudy (Clear) A 07/12/23 00:57 Urine pH 5.0 (4.5-7.5) 07/12/23 00:57 Ur Specific [place] 1.030 (1.000-1.030) 07/12/23 00:57 Urine Protein 1+ (Negative) H 07/12/23 00:57 Urine Glucose (UA) 3+ (Negative) H 07/12/23 00:57 Urine Ketones Trace (Negative) H 07/12/23 00:57 Urine Nitrite Negative (Negative) 07/12/23 00:57 Ur Leukocyte Esterase Negative (Negative) 07/12/23 00:57 Urine WBC (Auto) 0-5 /hpf (0-5) 07/12/23 00:57 Urine RBC (Auto) 0-2 /hpf (0-2) 07/12/23 00:57 U Hyaline Cast (Auto) 11-20 /lpf (0-2) H 07/12/23 00:57 U Epithel Cells (Auto) 6-10 /hpf (0-2) H 07/12/23 00:57 Urine Bacteria (Auto) None Seen (None Seen) 07/12/23 00:57 07/21/23 10:23 Aerobic Blood Culture - Final Blood No growth in Aerobic bottle after 5 days. Anaerobic Blood Culture - Final No growth in Anaerobic bottle after 5 days. 07/21/23 10:07 Aerobic Blood Culture - Final Blood No growth in Aerobic bottle after 5 days. Anaerobic Blood Culture - Final 07/19/23 16:47 Aerobic Blood Culture - Final Blood No growth in Aerobic bottle after 5 days. Anaerobic Blood Culture - Final No growth in Anaerobic bottle after 5 days. 07/19/23 16:43 Aerobic Blood Culture - Final Blood Staph aureus MRSA Anaerobic Blood Culture - Final Staph aureus MRSA 07/12/23 00:32 Aerobic Blood Culture - Final Blood Staph aureus MRSA Anaerobic Blood Culture - Final Staph aureus MRSA 07/12/23 00:24 Aerobic Blood Culture - Final Blood Staph aureus MRSA Anaerobic Blood Culture - Final Staph aureus MRSA 07/26/23 20:21 POC Glucose 168 H Electrocardiogram Date: 07/13/23 Findings: + AFIB @ (155bpm with LAD) Chest X-Ray Date: 07/20/23 Findings: + cardiomegaly and + pulmonary vascular congestion Mild improvement in left lung airspace opacities. The findings favor improving pneumonia Echocardiogram Date: 07/20/23 EF: 55-60% LV Function: normal RWMA: + none Other Findings: + LVH (mild) Valvular Disease: + no significant valvular disease
[2023-07-27 06:56] LABS: Hematocrit (blood only) 25.8 % (42.0-52.0); Hemoglobin 8.1 g/dl (14.0-18.0); Mean Corpuscular Hgb Conc 31.4 g/dL (32.0-36.0); Mean Platelet Volume 10.8 fL (9.4-12.4); Platelet Count 267 K/uL (130-400); RDW Coefficient of Variation 16.5 % (11.5-14.5); RDW Standard Deviation 47.8 fL (36.4-46.3); Red Blood Count 3.11 M/uL (4.70-6.10); White Blood Count 6.49 K/ul (4.8-10.8)
[2023-07-27] MEDS ORDERED: KETAMINE HCL 10MG/ML SYR ONE (06:59)
[2023-07-27 07:22] LABS: BUN Creatinine Ratio 14.7 (10-20); C Reactive Protein 7.7 mg/dl (0-0.5); Calcium 7.4 mg/dl (8.6-10.3); Creatinine Clr Calc Pharmacy 49.6 ml/min; Est GFR (African American) 53.5 ml/min; Est GFR (Non-African American) 46.2 ml/min; Potassium 3.4 mmol/L (3.5-5.1)
--- NOTE | 2023-07-27 07:37 | Anesthesiology Progress Note ---
Date of Service July 27, 2023 Anesthesia Post Procedure Vital Signs Vital Signs: Temp Pulse Pulse Resp BP BP BP 07/27/23 07:08 73 16 170/70 H 07/26/23 21:07 37.7 C H 72 16 165/68 H 07/26/23 15:16 37.7 C H 69 20 169/70 H 07/26/23 09:19 Pulse Ox O2 Del Method 07/27/23 07:08 91 Room Air 07/26/23 21:07 92 Room Air 07/26/23 15:16 92 Room Air 07/26/23 09:19 Room Air Pain Intensity Left Foot: Pain Intensity: 7 Bilateral Back: Pain Intensity: 7 Transfer of Care Handoff Completed per policy Notes Mental Status: alert / awake / arousable Patient Amnestic to Procedure: Yes Nausea / Vomiting: adequately controlled Pain: adequately controlled Airway Patency, RR, SpO2: stable & adequate BP & HR: stable & adequate Hydration State: stable & adequate Anesthetic Complications: no major complications apparent and Pt Satisfied with anesthetic care
[2023-07-27] MEDS ORDERED: PROPOFOL IV EMULSION 10 MG/ML 20 ML VIAL IV ONE (07:41)
[2023-07-27] MEDS ORDERED: LIDOCAINE 2% 2 ML VIAL/AMP(20MG/ML) INFIL ONE (07:41)
[2023-07-27] MEDS ORDERED: VANCOMYCIN CONSULT ACTIVE PRN (08:56)
[2023-07-27] MEDS: VANCOMYCIN HCL 2,000 MG in SODIUM CHLORIDE 0.9% 500 ML IV ONE (10:01)
--- NOTE | 2023-07-27 10:04 | Pharmacy Report ---
Pharmacy PK ABX Note - Date of Service July 27, 2023 - Assessment and Plan Assessment 72 year old M receiving vancomycin for treatment of MRSA bacteremia with possible endovascular source and now pulmonary coverage (previously on dapto). ID following- anticipated prolonged treatment course. 07/11 blood cultures (+) MRSA in 4/, 07/18 blood cultures (+) MRSA in 2/, and 07/20 blood cultures (-). Plan for REGINE. Day #1 of vancomycin antimicrobial therapy. (start date of treatment = 07/20) Plan Vancomycin * Loading dose: 2000 mg IV x 1 * Maintenance dose: 1250 mg IV every 24 hours * Regimen is predicted to achieve target AUC/MISA of 400-600 mg/L.hr * Will obtain a level at ~48h of therapy Pharmacy will continue to follow and will adjust dose/frequency as necessary. Thank you. Pharmacy has transitioned to AUC monitoring for vancomycin. AUC/MISA is the preferred PK/PD target and is associated with decreased risk of nephrotoxicity compared to traditional trough targets.
[2023-07-27] MEDS: BENZOCAINE/TETRACAIN/BUTAM 50 APPLN/5 GM CAN EXT ONE (10:52)
--- NOTE | 2023-07-27 12:36 | XCELERA ---
[id number]
--- NOTE | 2023-07-27 13:03 | Infectious Disease Progress Nt ---
Date of Service July 27, 2023 Assessment & Plan (1) MRSA bacteremia: (2) Atrial fibrillation: (3) Diabetic foot ulcer: (4) 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: (5) Acute kidney injury superimposed on CKD: Plan 72yo M with h/o peripheral arterial disease s/p LLE femoral to anterior tibial artery reverse GSV bypass in 02/2023, recent left 2nd toe infection with other toe eschars s/p LLE 2nd to amputation and debridement of toes 1, 3, and 4 on 06/16/23, CHF, diabetes, CAD s/p CABG, afib, pulmonary HTN, CKD III, chronic HCV, anxiety who presented on 07/11 with generalized weakness and worsening left great toe infection. He was seen outpatient by vascular on 07/06 at which time cellulitis was noticed on great toe and started on cipro until f/u in 1 week, but toe became worse so presented to ED. Here, he has been afebrile, initially hypotensive. WBC initially wnl, Cr 2.48 (improved), AST/ALT wnl. Troponin elevated. CRP 21.79. UA negative. RPP negative. BCx with MRSA. XR left foot with age indeterminant erosive change involving the tuft of the first distal phalanx; correlate clinically for evidence of osteomyelitis. CXR with ill-defined patchy airspace opacities throughout the left lung may represent multifocal pneumonia. S/p OR on 07/14 for left great toe amputation and wound vac placement (per op note, there is purulent drainage present in the toe itself; MT bone was divided, bone was fairly hard, it did not appear to be involved with the osteo, once the toe and the metatarsal head were removed the sesamoid bones were also removed). No OR cx. TTE negative for vegetations. Repeat BCx from 07/18 returned positive for MRSA. ID consulted on 07/20. Cardiology deferred REGINE. He had a CT chest for SOB which showed numerous multilobar bilateral distribution of irregular centrally cavitary nodular areas of consolidation, ddx includes necrotic pneumonia, septic emboli vs pulmonary metastasis, R>L pleural effusions, numerous subcentimeter scattered bl solid pulmonary nodules. REGINE negative for valvular vegetations. Abx changed to vancomycin for lung coverage. Since no vegetations on REGINE, will plan for 4 weeks of antibiotics with follow up cultures 1 week after completion of antibiotics. No spinal tenderness so spinal imaging was not pursued. Left foot infection has been properly debrided and amputated. No residual bone infection noted. He doesnt have any longstanding lines or hardware. # MRSA bacteremia REGINE neg # Multiple cavitary nodular lesions ddx including necrotic PNA v septic emboli v malignancy # Left great toe infection s/p amputation on 07/14 # FLORECITA improving # Diabetes # PAD - Nano stopped daptomycin and started vancomycin - pharmacy to assist in determining final outpatient vancomycin dose - will plan for 4 weeks of IV abx with vancomycin starting 07/20, eot 08/17 - on discharge, he will need weekly CBC w diff, CMP, and vanc levels while on IV abx - he should have repeat BCx 1 week after completion of abx (around 08/24) - follow up outpatient with either PCP or local ID provider ID will continue to follow. If questions or concerns, contact Infectious Disease Call Center . Krys Godinez MD [facility], Division of Infectious Diseases IDConnect: [phone] Admission and Anticipated Discharge Date Admission Date: July 12, 2023 Subjective This patient recommendation is based on a telemedicine consult request which was completed asynchronously through chart review and information provided by the primary physician. The patient was not seen or examined today. The evaluation is consultative in nature and all patient care and treatment decisions can either be accepted or rejected by the patient's primary hospital-based treating physician using their own independent medical judgment for their patient. Time Spent Reviewing Chart: 31+ minutes Results & Data Vital Signs (Past 12 Hours) Vital Signs Temp Pulse Pulse Pulse Pulse Resp BP 07/27/23 11:42 37.4 C 78 16 07/27/23 10:56 36.4 C L 71 16 07/27/23 09:30 37.3 C 76 17 07/27/23 09:00 36.3 C L 73 20 07/27/23 08:50 36.3 C L 71 16 07/27/23 08:06 73 16 07/27/23 08:01 74 16 07/27/23 07:56 76 16 07/27/23 07:51 82 16 07/27/23 07:46 78 16 07/27/23 07:41 82 16 07/27/23 07:36 74 14 07/27/23 07:08 73 16 170/70 H BP BP Pulse Ox O2 Del Method O2 Flow Rate 07/27/23 11:42 138/71 91 Room Air 07/27/23 10:56 154/75 H 91 Room Air 07/27/23 09:30 134/66 94 Room Air 07/27/23 09:00 163/70 H 94 Nasal Cannula 2 07/27/23 08:50 163/69 H 94 Nasal Cannula 2 07/27/23 08:06 145/83 H 90 Room Air 07/27/23 08:01 148/75 H 90 Room Air 07/27/23 07:56 139/75 91 Room Air 07/27/23 07:51 135/77 90 Room Air 07/27/23 07:46 135/77 91 Room Air 07/27/23 07:41 121/62 90 Room Air 07/27/23 07:36 118/60 07/27/23 07:08 91 Room Air
--- NOTE | 2023-07-27 20:25 | Hospitalist Progress Note ---
Date of Service July 27, 2023 Assessment & Plan (1) MRSA bacteremia: Plan: MRSA bacteremia/sepsis secondary to diabetic foot ulcer /gangrene status post recent second toe amputation and great toe debridement for peripheral artery disease by Dr. Ambriz performed on 06/16/2023 Now S/P left great toe amputation secondary to Gangrene to peripheral vascular disease on 07/14 Blood culture (07/11) +MRSA; repeat cultures (07/18) 1/2 +MRSA; repeat cultures (07/20) negative at this time stopping ceftaroline CT Chest: Numerous multilobar bilateral distribution of irregular centrally cavitary nodular areas of consolidation. Differential considerations include ne crotic pneumonia, septic emboli versus pulmonary metastasis. Close follow up on this imaging should be performed. TTE without vegetation; given persistent bacteremia consider REGINE - spoke with cardiology, will likely forego this and tx as presumed endocarditis based on clinical suspicion ID following - initially on daptomycin and cefepime --> now on daptomycin and ceftaroline for dual MRSA coverage with plan to ultimately continue treatment with daptomycin only x6 weeks from first negative BCx(07/21/23->09/01/23) Will need weekly monitoring of cbc, cmp, and cpk. Would also recommend repeating blood cultures 1 week after daptomycin is completed Hold statin while on dapto Diabetic foot infection/MRSA osteomyelitis/MRSA bacteremiasuspect most likely wound infection/cellulitis progressed to bacteremia, although obviously it is possible he had spontaneous bacteremia that seeded in his footbut given that he had the preceding foot ulcer/wound it seems more likely that the skin infection is primary. Stable and postopcontinue wound VAC. Bacteremia Unfortunately was persistent. Endocarditis would be a diagnosis of exclusion, given his extensive infection, D/W ID on 07/25 Plan is for REGINE to exclude vegetation and endocarditis given porlonged bacteremia and posible septic emboli. With possible septic emboli in his lungs, will switch to vancomycin for 4 weeks. REGINE was negative. Anticipate need for rehabas high complexity given the bacteremia, the ongoing antibiotics, the wound VAC/wound care, the therapy needsinitially he had been denied for rehab, but this was submitted before his blood cultures remained positive, and before his situation was much more complicated. At this point I think it quite reasonable to think an acute rehab facility would be most appropriate for his dispositionand assuming his cultures remain negative, case management working on getting rehab placed. (2) Heart failure with ejection fraction improved from reduced range to preserved range: Plan: CAD and Cardiomyopathy s/p CABG with MOSLEY, afib (kushal operative) -continue cardilol, Lasix, Plavix -initial troponin 39.4, peaked. Suspect demand. (3) Atrial fibrillation: Plan: -cardiology following - initially started on amiodarone 400mg BID - transitioned to 200mg daily -continue Eliquis (4) DM (diabetes mellitus): Plan: Cont. 20 units glargine qam + SSI Hold metformin Cont. Jaundice per nephrology (5) Hyponatremia: Plan: Improving Nephrology following - continue Lasix, jardiance, salt tab - salt tab can be d/c'd once Na normalizes - fluid restriction to <1500 ml/day (6) Acute kidney injury superimposed on CKD: Plan: Acute kidney injury superimposed on CKD-3, resolved - now at baseline 1.3 Nephrology is following Holding spironolactone Anemia of chronic disease s/p venofer per nephrology CAUTION as on Eliquis (7) Tobacco abuse: Plan: Counseled regarding cessation (8) Liver mass: Plan: Seen on CT imaging -would further evaluate with biopsy - can be done as an outpatient but if hospitalized for prolong period of time can try to obtain as inpatient Plan DVT ppx: eliquis FEN/GI: DM2 Code Status: full Dispo: med surg Admission and Anticipated Discharge Date Admission Date: July 12, 2023 Subjective 72 yo male reports no new symptoms. Review of Systems Review of Systems: All systems reviewed & are unremarkable except as noted in HPI & below Physical Exam Physical Exam: Patient is resting comfortably. HEENT: Pupils are equal and reactive to light and accommodation. Extraocular movements are intact. The sclerae are anicteric. Neuro: Cranial nerves intact Lungs: Clear to auscultation bilaterally. He has good air movement without use of accessory muscles. No rales wheezes or rhonchi. Cardiac: Heart demonstrates a regular rate and rhythm. Normal S1 and S2. No murmurs on examination. Extremities: No clubbing or cyanosis in the hands. Discoloration an eschar noted on the left foot primarily the toes. Results & Data Results & Data Vital Signs (Past 12 Hours) Vital Signs Temp Pulse Pulse Pulse Resp BP BP 07/27/23 19:53 36.7 C 73 18 159/67 H 07/27/23 18:18 78 143/64 H 07/27/23 11:42 37.4 C 78 16 138/71 07/27/23 10:56 36.4 C L 71 16 154/75 H 07/27/23 09:30 37.3 C 76 17 134/66 07/27/23 09:00 36.3 C L 73 20 163/70 H 07/27/23 08:50 36.3 C L 71 16 163/69 H Pulse Ox O2 Del Method O2 Flow Rate 07/27/23 19:53 96 Room Air 07/27/23 18:18 07/27/23 11:42 91 Room Air 07/27/23 10:56 91 Room Air 07/27/23 09:30 94 Room Air 07/27/23 09:00 94 Nasal Cannula 2 07/27/23 08:50 94 Nasal Cannula 2 PG Care Time/CCT Total # of Minutes Spent Total Time Spent with Patient: Total time spent is greater than 50% in coordination of care (as documented) at patient's floor/unit and/or counseling patient: Coding Level of Care Code 67790 SUB INP/OBS CARE 2/35MIN Diagnoses MRSA bacteremia R78.81; B95.62 Heart failure with ejection fraction improved from reduced range to preserved range I50.32 Atrial fibrillation I48.91 DM (diabetes mellitus) E11.9 Hyponatremia E87.1 Acute kidney injury superimposed on CKD N17.9; N18.9 Tobacco abuse Z72.0 Liver mass R16.0
[2023-07-27] MEDS: VANCOMYCIN HCL 1,250 MG in SODIUM CHLORIDE 0.9% 250 ML IV SCH (21:21)
[2023-07-28 09:10] LABS: Creatinine Clr Calc Pharmacy 50.2 ml/min; Est GFR (African American) 54.4 ml/min; Est GFR (Non-African American) 46.9 ml/min
[2023-07-28] MEDS: oxyCODONE HCL IR 5 MG TAB (IMMEDIATE RELEASE) PO PRN (12:25)
[2023-07-28] MEDS: ACETAMINOPHEN 325 MG TAB PO SCH (17:05)
--- NOTE | 2023-07-28 22:13 | Hospitalist Progress Note ---
Date of Service July 28, 2023 Assessment & Plan (1) MRSA bacteremia: Plan: MRSA bacteremia/sepsis secondary to diabetic foot ulcer /gangrene status post recent second toe amputation and great toe debridement for peripheral artery disease by Dr. Ambriz performed on 06/16/2023 Now S/P left great toe amputation secondary to Gangrene to peripheral vascular disease on 07/14 Blood culture (07/11) +MRSA; repeat cultures (07/18) 1/2 +MRSA; repeat cultures (07/20) negative at this time stopping ceftaroline CT Chest: Numerous multilobar bilateral distribution of irregular centrally cavitary nodular areas of consolidation. Differential considerations include ne crotic pneumonia, septic emboli versus pulmonary metastasis. Close follow up on this imaging should be performed. TTE without vegetation; given persistent bacteremia consider REGINE - spoke with cardiology, will likely forego this and tx as presumed endocarditis based on clinical suspicion ID following - initially on daptomycin and cefepime --> now on daptomycin and ceftaroline for dual MRSA coverage with plan to ultimately continue treatment with daptomycin only x6 weeks from first negative BCx(07/21/23->09/01/23) Will need weekly monitoring of cbc, cmp, and cpk. Would also recommend repeating blood cultures 1 week after daptomycin is completed Hold statin while on dapto Diabetic foot infection/MRSA osteomyelitis/MRSA bacteremiasuspect most likely wound infection/cellulitis progressed to bacteremia, although obviously it is possible he had spontaneous bacteremia that seeded in his footbut given that he had the preceding foot ulcer/wound it seems more likely that the skin infection is primary. Stable and postopcontinue wound VAC. Bacteremia Unfortunately was persistent. Endocarditis would be a diagnosis of exclusion, given his extensive infection, D/W ID on 07/25 Plan is for REGINE to exclude vegetation and endocarditis given porlonged bacteremia and posible septic emboli. With possible septic emboli in his lungs, will switch to vancomycin for 4 weeks. REGINE was negative. Anticipate need for rehabas high complexity given the bacteremia, the ongoing antibiotics, the wound VAC/wound care, the therapy needsinitially he had been denied for rehab, but this was submitted before his blood cultures remained positive, and before his situation was much more complicated. At this point I think it quite reasonable to think an acute rehab facility would be most appropriate for his dispositionand assuming his cultures remain negative, case management working on getting rehab placed. Transitioned pain medicine to oxycodone. tyelnol is alsp placed scheduled. Rehab (inpatient) was denied. (2) Heart failure with ejection fraction improved from reduced range to preserved range: Plan: CAD and Cardiomyopathy s/p CABG with MOSLEY, afib (kushal operative) -continue cardilol, Lasix, Plavix -initial troponin 39.4, peaked. Suspect demand. (3) Atrial fibrillation: Plan: -cardiology following - initially started on amiodarone 400mg BID - transitioned to 200mg daily -continue Eliquis (4) DM (diabetes mellitus): Plan: Cont. 20 units glargine qam + SSI Hold metformin Cont. Jaundice per nephrology (5) Hyponatremia: Plan: Improving Nephrology following - continue Lasix, jardiance, salt tab - salt tab can be d/c'd once Na normalizes - fluid restriction to <1500 ml/day (6) Acute kidney injury superimposed on CKD: Plan: Acute kidney injury superimposed on CKD-3, resolved - now at baseline 1.3 Nephrology is following Holding spironolactone Anemia of chronic disease s/p venofer per nephrology CAUTION as on Eliquis (7) Tobacco abuse: Plan: Counseled regarding cessation (8) Liver mass: Plan: Seen on CT imaging -would further evaluate with biopsy - can be done as an outpatient but if hospitalized for prolong period of time can try to obtain as inpatient Plan DVT ppx: eliquis FEN/GI: DM2 Code Status: full Dispo: med surg Admission and Anticipated Discharge Date Admission Date: July 12, 2023 Subjective Patient reports no new symptoms. Review of Systems Review of Systems: All systems reviewed & are unremarkable except as noted in HPI & below Physical Exam Physical Exam: Patient is resting comfortably. HEENT: Pupils are equal and reactive to light and accommodation. Extraocular movements are intact. The sclerae are anicteric. Neuro: Cranial nerves intact Lungs: Clear to auscultation bilaterally. He has good air movement without use of accessory muscles. No rales wheezes or rhonchi. Cardiac: Heart demonstrates a regular rate and rhythm. Normal S1 and S2. No murmurs on examination. Extremities: No clubbing or cyanosis in the hands. Discoloration an eschar noted on the left foot primarily the toes. Results & Data Results & Data Vital Signs (Past 12 Hours) Vital Signs Temp Pulse Resp BP Pulse Ox O2 Del Method 07/28/23 20:04 36.7 C 68 18 122/61 98 Room Air 07/28/23 18:40 36.8 C 60 18 145/60 H 95 Room Air PG Care Time/CCT Total # of Minutes Spent Total Time Spent with Patient: Total time spent is greater than 50% in coordination of care (as documented) at patient's floor/unit and/or counseling patient: Coding Level of Care Code 01412 SUB INP/OBS CARE 2/35MIN Diagnoses MRSA bacteremia R78.81; B95.62 Heart failure with ejection fraction improved from reduced range to preserved range I50.32 Atrial fibrillation I48.91 DM (diabetes mellitus) E11.9 Hyponatremia E87.1 Acute kidney injury superimposed on CKD N17.9; N18.9 Tobacco abuse Z72.0 Liver mass R16.0
[2023-07-29 06:16] LABS: Hematocrit (blood only) 24.9 % (42.0-52.0); Hemoglobin 7.9 g/dl (14.0-18.0); Mean Corpuscular Hemoglobin 26.4 pg (25.0-34.0); Mean Corpuscular Hgb Conc 31.7 g/dL (32.0-36.0); Mean Corpuscular Volume 83.3 fL (80.0-100.0); Mean Platelet Volume 10.7 fL (9.4-12.4); Platelet Count 268 K/uL (130-400); RDW Coefficient of Variation 16.1 % (11.5-14.5); RDW Standard Deviation 47.9 fL (36.4-46.3); Red Blood Count 2.99 M/uL (4.70-6.10); White Blood Count 6.35 K/ul (4.8-10.8)
[2023-07-29 06:36] LABS: BUN Creatinine Ratio 16.8 (10-20); C Reactive Protein 8.85 mg/dl (0-0.5); Calcium 7.5 mg/dl (8.6-10.3); Est GFR (African American) 51.4 ml/min; Est GFR (Non-African American) 44.4 ml/min; Potassium 3.5 mmol/L (3.5-5.1)
--- NOTE | 2023-07-29 12:37 | Pharmacy Report ---
Pharmacy PK ABX Note - Date of Service July 29, 2023 - Assessment and Plan Assessment 07/28: * Continues on vancomycin monotherapy. Day # 3 vancomycin. SCr remains stable ~ 1.5mg/dl. REGINE (-). 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 ID following- anticipated prolonged treatment course. 07/11 blood cultures (+) MRSA in /, 07/18 blood cultures (+) MRSA in 2/, and 07/20 blood cultures (-). Plan for REGINE. Day #1 of vancomycin antimicrobial therapy. (start date of treatment = 07/20) Plan Vancomycin * Current regimen: vancomycin 1250mg IV q24h * Random level this afternoon, 17.9mcg/ml (~13h level)- predicted to achieve ssAUC 552mg/L.hr (95% efficacy) - therapeutic. * Continue vancomycin 1250mg IV q24h. * Will repeat a level in ~ 48h Pharmacy will continue to follow and will adjust dose/frequency as necessary. Thank you. Pharmacy has transitioned to AUC monitoring for vancomycin. AUC/MISA is the preferred PK/PD target and is associated with decreased risk of nephrotoxicity compared to traditional trough targets.
--- NOTE | 2023-07-29 17:40 | Infectious Disease Progress Nt ---
Date of Service July 29, 2023 Assessment & Plan (1) MRSA bacteremia: (2) Atrial fibrillation: (3) Diabetic foot ulcer: (4) 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: (5) Acute kidney injury superimposed on CKD: Plan 72yo M with h/o peripheral arterial disease s/p LLE femoral to anterior tibial artery reverse GSV bypass in 02/2023, recent left 2nd toe infection with other toe eschars s/p LLE 2nd to amputation and debridement of toes 1, 3, and 4 on 06/16/23, CHF, diabetes, CAD s/p CABG, afib, pulmonary HTN, CKD III, chronic HCV, anxiety who presented on 07/11 with generalized weakness and worsening left great toe infection. He was seen outpatient by vascular on 07/06 at which time cellulitis was noticed on great toe and started on cipro until f/u in 1 week, but toe became worse so presented to ED. Here, he has been afebrile, initially hypotensive. WBC initially wnl, Cr 2.48 (improved), AST/ALT wnl. Troponin elevated. CRP 21.79. UA negative. RPP negative. BCx with MRSA. XR left foot with age indeterminant erosive change involving the tuft of the first distal phalanx; correlate clinically for evidence of osteomyelitis. CXR with ill-defined patchy airspace opacities throughout the left lung may represent multifocal pneumonia. S/p OR on 07/14 for left great toe amputation and wound vac placement (per op note, there is purulent drainage present in the toe itself; MT bone was divided, bone was fairly hard, it did not appear to be involved with the osteo, once the toe and the metatarsal head were removed the sesamoid bones were also removed). No OR cx. TTE negative for vegetations. Repeat BCx from 07/18 returned positive for MRSA. ID consulted on 07/20. Cardiology deferred REGINE. He had a CT chest for SOB which showed numerous multilobar bilateral distribution of irregular centrally cavitary nodular areas of consolidation, ddx includes necrotic pneumonia, septic emboli vs pulmonary metastasis, R>L pleural effusions, numerous subcentimeter scattered bl solid pulmonary nodules. REGINE negative for valvular vegetations. Abx changed to vancomycin for lung coverage. Since no vegetations on REGINE, plan for 4 weeks of antibiotics with follow up cultures 1 week after completion of antibiotics. No spinal tenderness so spinal imaging was not pursued. Left foot infection has been properly debrided and amputated. No residual bone infection noted. He doesnt have any longstanding lines or hardware. # MRSA bacteremia REGINE neg # Multiple cavitary nodular lesions ddx including necrotic PNA v septic emboli v malignancy # Left great toe infection s/p amputation on 07/14 # FLORECITA improving # Diabetes # PAD - continue vancomycin 1250mg q24h - plan for 4 weeks of IV abx with vancomycin starting 07/20, eot 08/17 - on discharge, he will need weekly CBC w diff, CMP, and vanc levels while on IV abx - he should have repeat BCx 1 week after completion of abx (around 08/24) - follow up outpatient with either PCP or local ID provider ID will discontinue active follow up at this time. Please do not hesitate to reconsult the Infectious Diseases service as needed. Krys Godinez MD [facility], Division of Infectious Diseases IDConnect: [phone] Admission and Anticipated Discharge Date Admission Date: July 12, 2023 Subjective This patient recommendation is based on a telemedicine consult request which was completed asynchronously through chart review and information provided by the primary physician. The patient was not seen or examined today. The evaluation is consultative in nature and all patient care and treatment decisions can either be accepted or rejected by the patient's primary hospital-based treating physician using their own independent medical judgment for their patient. Time Spent Reviewing Chart: 31+ minutes Results & Data Vital Signs (Past 12 Hours) Vital Signs Temp Pulse Pulse Resp BP Pulse Ox O2 Del Method 07/29/23 16:15 Room Air 07/29/23 15:05 36.6 C 68 16 117/63 92 Room Air 07/29/23 12:01 36.7 C 70 18 108/57 L 95 Room Air 07/29/23 08:06 36.5 C 74 20 167/70 H 93 Room Air
[2023-07-29] MEDS: oxyCODONE HCL IR 5 MG TAB (IMMEDIATE RELEASE) PO PRN (19:41)
--- NOTE | 2023-07-29 21:36 | Hospitalist Progress Note ---
Date of Service July 29, 2023 Assessment & Plan (1) MRSA bacteremia: Plan: MRSA bacteremia/sepsis secondary to diabetic foot ulcer /gangrene status post recent second toe amputation and great toe debridement for peripheral artery disease by Dr. Ambriz performed on 06/16/2023 Now S/P left great toe amputation secondary to Gangrene to peripheral vascular disease on 07/14 Blood culture (07/11) +MRSA; repeat cultures (07/18) 1/2 +MRSA; repeat cultures (07/20) negative at this time stopping ceftaroline CT Chest: Numerous multilobar bilateral distribution of irregular centrally cavitary nodular areas of consolidation. Differential considerations include ne crotic pneumonia, septic emboli versus pulmonary metastasis. Close follow up on this imaging should be performed. TTE without vegetation; given persistent bacteremia consider REGINE - spoke with cardiology, will likely forego this and tx as presumed endocarditis based on clinical suspicion ID following - initially on daptomycin and cefepime --> now on daptomycin and ceftaroline for dual MRSA coverage with plan to ultimately continue treatment with daptomycin only x6 weeks from first negative BCx(07/21/23->09/01/23) Will need weekly monitoring of cbc, cmp, and cpk. Would also recommend repeating blood cultures 1 week after daptomycin is completed Hold statin while on dapto Diabetic foot infection/MRSA osteomyelitis/MRSA bacteremiasuspect most likely wound infection/cellulitis progressed to bacteremia, although obviously it is possible he had spontaneous bacteremia that seeded in his footbut given that he had the preceding foot ulcer/wound it seems more likely that the skin infection is primary. Stable and postopcontinue wound VAC. Bacteremia Unfortunately was persistent. Endocarditis would be a diagnosis of exclusion, given his extensive infection, D/W ID on 07/25 Plan is for REGINE to exclude vegetation and endocarditis given porlonged bacteremia and posible septic emboli. With possible septic emboli in his lungs, will switch to vancomycin for 4 weeks. REGINE was negative. Anticipate need for rehabas high complexity given the bacteremia, the ongoing antibiotics, the wound VAC/wound care, the therapy needsinitially he had been denied for rehab, but this was submitted before his blood cultures remained positive, and before his situation was much more complicated. At this point I think it quite reasonable to think an acute rehab facility would be most appropriate for his dispositionand assuming his cultures remain negative, case management working on getting rehab placed. Transitioned pain medicine to oxycodone. tyelnol is alsp placed scheduled. Rehab (inpatient) was denied. Patient will be discharged to SNF on 07/29 (2) Heart failure with ejection fraction improved from reduced range to preserved range: Plan: CAD and Cardiomyopathy s/p CABG with MOSLEY, afib (kushal operative) -continue cardilol, Lasix, Plavix -initial troponin 39.4, peaked. Suspect demand. (3) Atrial fibrillation: Plan: -cardiology following - initially started on amiodarone 400mg BID - transitioned to 200mg daily -continue Eliquis (4) DM (diabetes mellitus): Plan: Cont. 20 units glargine qam + SSI Hold metformin Cont. Jaundice per nephrology (5) Hyponatremia: Plan: Improving Nephrology following - continue Lasix, jardiance, salt tab - salt tab can be d/c'd once Na normalizes - fluid restriction to <1500 ml/day (6) Acute kidney injury superimposed on CKD: Plan: Acute kidney injury superimposed on CKD-3, resolved - now at baseline 1.3 Nephrology is following Holding spironolactone Anemia of chronic disease s/p venofer per nephrology CAUTION as on Eliquis (7) Tobacco abuse: Plan: Counseled regarding cessation (8) Liver mass: Plan: Seen on CT imaging -would further evaluate with biopsy - can be done as an outpatient but if hospitalized for prolong period of time can try to obtain as inpatient Plan DVT ppx: eliquis FEN/GI: DM2 Code Status: full Dispo: med surg Admission and Anticipated Discharge Date Admission Date: July 12, 2023 Subjective Patient reports no new symptoms. Review of Systems Review of Systems: All systems reviewed & are unremarkable except as noted in HPI & below Physical Exam Physical Exam: Patient is resting comfortably. HEENT: Pupils are equal and reactive to light and accommodation. Extraocular movements are intact. The sclerae are anicteric. Neuro: Cranial nerves intact Lungs: Clear to auscultation bilaterally. He has good air movement without use of accessory muscles. No rales wheezes or rhonchi. Cardiac: Heart demonstrates a regular rate and rhythm. Normal S1 and S2. No murmurs on examination. Extremities: No clubbing or cyanosis in the hands. Discoloration an eschar noted on the left foot primarily the toes. Results & Data Results & Data Vital Signs (Past 12 Hours) Vital Signs Temp Pulse Resp BP Pulse Ox O2 Del Method 07/29/23 16:15 Room Air 07/29/23 15:05 36.6 C 68 16 117/63 92 Room Air 07/29/23 12:01 36.7 C 70 18 108/57 L 95 Room Air PG Care Time/CCT Total # of Minutes Spent Total Time Spent with Patient: Total time spent is greater than 50% in coordination of care (as documented) at patient's floor/unit and/or counseling patient: Coding Level of Care Code 68693 SUB INP/OBS CARE 2/35MIN Diagnoses MRSA bacteremia R78.81; B95.62 Heart failure with ejection fraction improved from reduced range to preserved range I50.32 Atrial fibrillation I48.91 DM (diabetes mellitus) E11.9 Hyponatremia E87.1 Acute kidney injury superimposed on CKD N17.9; N18.9 Tobacco abuse Z72.0 Liver mass R16.0
[2023-07-30 07:31] LABS: Hemoglobin 7.3 g/dl (14.0-18.0); Mean Corpuscular Hemoglobin 25.3 pg (25.0-34.0); Mean Corpuscular Hgb Conc 30.4 g/dL (32.0-36.0); Mean Platelet Volume 10.9 fL (9.4-12.4); Platelet Count 288 K/uL (130-400); RDW Standard Deviation 48.2 fL (36.4-46.3); Red Blood Count 2.89 M/uL (4.70-6.10); White Blood Count 5.76 K/ul (4.8-10.8)
[2023-07-30 09:02] LABS: Calcium 7.4 mg/dl (8.6-10.3); Potassium 3.5 mmol/L (3.5-5.1)
[2023-07-30 09:07] LABS: BUN Creatinine Ratio 18.8 (10-20); Creatinine Clr Calc Pharmacy 51.6 ml/min; Est GFR (African American) 56.2 ml/min; Est GFR (Non-African American) 48.5 ml/min
[2023-07-30] MEDS: IRON SUCROSE 200 MG in 0.9 % SODIUM CHLORIDE 100 ML IV ONE (14:46)
--- NOTE | 2023-07-30 20:46 | Hospitalist Progress Note ---
Date of Service July 30, 2023 Assessment & Plan (1) MRSA bacteremia: Plan: MRSA bacteremia/sepsis secondary to diabetic foot ulcer /gangrene status post recent second toe amputation and great toe debridement for peripheral artery disease by Dr. Ambriz performed on 06/16/2023 Now S/P left great toe amputation secondary to Gangrene to peripheral vascular disease on 07/14 Blood culture (07/11) +MRSA; repeat cultures (07/18) 1/2 +MRSA; repeat cultures (07/20) negative at this time stopping ceftaroline CT Chest: Numerous multilobar bilateral distribution of irregular centrally cavitary nodular areas of consolidation. Differential considerations include ne crotic pneumonia, septic emboli versus pulmonary metastasis. Close follow up on this imaging should be performed. TTE without vegetation; given persistent bacteremia consider REGINE - spoke with cardiology, will likely forego this and tx as presumed endocarditis based on clinical suspicion ID following - initially on daptomycin and cefepime --> now on daptomycin and ceftaroline for dual MRSA coverage with plan to ultimately continue treatment with daptomycin only x6 weeks from first negative BCx(07/21/23->09/01/23) Will need weekly monitoring of cbc, cmp, and cpk. Would also recommend repeating blood cultures 1 week after daptomycin is completed Hold statin while on dapto Diabetic foot infection/MRSA osteomyelitis/MRSA bacteremiasuspect most likely wound infection/cellulitis progressed to bacteremia, although obviously it is possible he had spontaneous bacteremia that seeded in his footbut given that he had the preceding foot ulcer/wound it seems more likely that the skin infection is primary. Stable and postopcontinue wound VAC. Bacteremia Unfortunately was persistent. Endocarditis would be a diagnosis of exclusion, given his extensive infection, D/W ID on 07/25 Plan is for REGINE to exclude vegetation and endocarditis given porlonged bacteremia and posible septic emboli. With possible septic emboli in his lungs, will switch to vancomycin for 4 weeks. REGINE was negative. Anticipate need for rehabas high complexity given the bacteremia, the ongoing antibiotics, the wound VAC/wound care, the therapy needsinitially he had been denied for rehab, but this was submitted before his blood cultures remained positive, and before his situation was much more complicated. At this point I think it quite reasonable to think an acute rehab facility would be most appropriate for his dispositionand assuming his cultures remain negative, case management working on getting rehab placed. Transitioned pain medicine to oxycodone. tyelnol is alsp placed scheduled. Rehab (inpatient) was denied. On 07/29 hemoglobin droppped further. reviewed cbc and iron stdies. Lab values point towards an iron defieciency anemia. Concern that patient may have a GI bleed, will hold eliquis and plavix. will monitor hemoglobin. ordered venofer. consulted GI. (2) Heart failure with ejection fraction improved from reduced range to preserved range: Plan: CAD and Cardiomyopathy s/p CABG with MOSLEY, afib (kushal operative) -continue cardilol, Lasix, Plavix -initial troponin 39.4, peaked. Suspect demand. (3) Atrial fibrillation: Plan: -cardiology following - initially started on amiodarone 400mg BID - transitioned to 200mg daily -continue Eliquis (4) DM (diabetes mellitus): Plan: Cont. 20 units glargine qam + SSI Hold metformin Cont. Jaundice per nephrology (5) Hyponatremia: Plan: Improving Nephrology following - continue Lasix, jardiance, salt tab - salt tab can be d/c'd once Na normalizes - fluid restriction to <1500 ml/day (6) Acute kidney injury superimposed on CKD: Plan: Acute kidney injury superimposed on CKD-3, resolved - now at baseline 1.3 Nephrology is following Holding spironolactone Anemia of chronic disease s/p venofer per nephrology CAUTION as on Eliquis (7) Tobacco abuse: Plan: Counseled regarding cessation (8) Liver mass: Plan: Seen on CT imaging -would further evaluate with biopsy - can be done as an outpatient but if hospitalized for prolong period of time can try to obtain as inpatient Plan DVT ppx: eliquis FEN/GI: DM2 Code Status: full Dispo: med surg Admission and Anticipated Discharge Date Admission Date: July 12, 2023 Subjective Patient is frustrated that discharge will be delayed though understands. Review of Systems Review of Systems: All systems reviewed & are unremarkable except as noted in HPI & below Physical Exam Physical Exam: Patient is resting comfortably. HEENT: Pupils are equal and reactive to light and accommodation. Extraocular movements are intact. The sclerae are anicteric. Neuro: Cranial nerves intact Lungs: Clear to auscultation bilaterally. He has good air movement without use of accessory muscles. No rales wheezes or rhonchi. Cardiac: Heart demonstrates a regular rate and rhythm. Normal S1 and S2. No murmurs on examination. Extremities: No clubbing or cyanosis in the hands. Discoloration an eschar noted on the left foot primarily the toes. Results & Data Results & Data Vital Signs (Past 12 Hours) Vital Signs Temp Pulse Resp BP Pulse Ox O2 Del Method 07/30/23 17:48 68 139/72 07/30/23 15:49 36.5 C 63 16 156/72 H 95 Room Air 07/30/23 14:48 36.6 C 65 16 151/70 H 95 Room Air 07/30/23 14:41 36.6 C 67 16 160/71 H 96 Room Air PG Care Time/CCT Total # of Minutes Spent Total Time Spent with Patient: Total time spent is greater than 50% in coordination of care (as documented) at patient's floor/unit and/or counseling patient: Coding Level of Care Code 26661 SUB INP/OBS CARE 3/50MIN Diagnoses MRSA bacteremia R78.81; B95.62 Heart failure with ejection fraction improved from reduced range to preserved range I50.32 Atrial fibrillation I48.91 DM (diabetes mellitus) E11.9 Hyponatremia E87.1 Acute kidney injury superimposed on CKD N17.9; N18.9 Tobacco abuse Z72.0 Liver mass R16.0 Time Spent (min) 50
[2023-07-30] MEDS: oxyCODONE HCL IR 5 MG TAB (IMMEDIATE RELEASE) PO PRN (20:47)
[2023-07-30] MEDS: hydrOXYzine HCl 10 MG TAB PO PRN (23:22)
[2023-07-31 08:15] LABS: Hematocrit (blood only) 23.8 % (42.0-52.0); Hemoglobin 7.5 g/dl (14.0-18.0); Mean Corpuscular Hemoglobin 25.9 pg (25.0-34.0); Mean Corpuscular Hgb Conc 31.5 g/dL (32.0-36.0); Mean Corpuscular Volume 82.1 fL (80.0-100.0); Mean Platelet Volume 10.6 fL (9.4-12.4); Platelet Count 287 K/uL (130-400); RDW Coefficient of Variation 16.1 % (11.5-14.5); RDW Standard Deviation 47.8 fL (36.4-46.3); White Blood Count 6.15 K/ul (4.8-10.8)
[2023-07-31 08:32] LABS: Calcium 7.4 mg/dl (8.6-10.3); Creatinine Clr Calc Pharmacy 55.1 ml/min; Est GFR (African American) 60.8 ml/min; Est GFR (Non-African American) 52.4 ml/min; Potassium 3.5 mmol/L (3.5-5.1)
--- NOTE | 2023-07-31 09:06 | Gastrointestinal Consultation ---
Date of Consultation July 31, 2023 Assessment & Plan (1) Anemia: Pleasant man with anemia of at least one year's duration. H/H have been fluctuating between 7.5 and 8.5 in hospital with zeferino of 7.3 yesterday and back to 7.5 today. He shows no signs of bleeding nor any GI symptoms. Normochromic, normocytic anemia with low iron and transferrin are most consistent with anemia of chronic disease. He is not bleeding so he can go home and have this addressed as an outpatient. I did tell him that he does need to have a colonoscopy as an outpatient just because it has been so long. He agrees and will discuss that with his PCP as he gets his strength back from this long hospitalization. Will sign off. Please call if services needed again. History of Present Illness Reason for Consultation: anemia, consider GI bleed Attending Physician: Anibal Tobin History of Present Illness 72 year old man admitted with infected toe and atrial fibrillation. I was called yesterday to see patient because hgb had fallen to 7.3 on routine blood draw with prior hgb 7.9 several days before. Hgb has been running in high 7's and low 8's through his hospitalization. He tells me he was first told he had anemia a year ago. He denies any bleeding. He has normal bowel movements and nurses document brown solid stool for last bowel movement. He has no abdominal pain. He takes PPI for heartburn and suffers with no heartburn now. He denies NSAID usage. He does admit that his last colonoscopy was about 10 years ago in [place]. Allergies Allergy/AdvReac Type Severity Reaction Status Date / Time cat dander Allergy Intermediate CONGESTION Verified 07/12/23 02:04 Home Medications Medication Instructions Recorded Confirmed Type atorvastatin 80 mg tablet (Lipitor) 80 mg PO QAM 05/15/19 07/12/23 History clopidogrel 75 mg tablet 75 mg PO QAM 05/15/19 07/12/23 History sacubitril 24 mg-valsartan 26 mg 1 tab PO BID 12/07/21 07/12/23 History tablet (Entresto) empagliflozin 25 mg tablet 25 mg PO QAM 05/30/22 07/12/23 History (Jardiance) carvedilol 12.5 mg tablet 12.5 mg PO BID #180 tabs 08/17/22 07/12/23 Rx amlodipine 5 mg tablet (Norvasc) 5 mg PO QAM 05/27/23 07/12/23 History furosemide 20 mg tablet 20 mg PO QAM 05/27/23 07/12/23 History gabapentin 100 mg capsule 100 mg PO DAILY 05/27/23 07/12/23 History apixaban 5 mg tablet (Eliquis) 5 mg PO BID 06/01/23 07/12/23 History insulin glargine 100 unit/mL (3 44 unit subcut QAM 06/01/23 07/12/23 History mL) subcutaneous pen (Lantus Solostar U-100 Insulin) sertraline 50 mg tablet (Zoloft) 75 mg PO QAM 06/01/23 07/12/23 History oxycodone-acetaminophen 5 mg-325 1 tab PO Q8H PRN pain #20 tabs 06/16/23 07/12/23 Rx mg tablet (Percocet) spironolactone 25 mg tablet 25 mg PO QAM 06/16/23 07/12/23 History (Aldactone) metformin 1,000 mg tablet 1,000 mg PO BID 07/12/23 07/12/23 History Patient History Medical History History of atrial fibrillation CAD (coronary artery disease) s/p CABG x 2 vessel June 2021 Acute HFrEF (heart failure with reduced ejection fraction) Follows with [facility] EF 50-55% per 05/2022 ECHO Cardiomyopathy Dyslipidemia Tobacco abuse smoke-12/day DM (diabetes mellitus) Atherosclerosis of artery of left lower extremity s/p left leg angiogram procedure with [employer] MA[employer]GER of proximal vein bypass 05/27/23 s/p left leg femoral artery to posterior tibial artery reverse saphenous vein bypass [place] [facility] [place]/p left SFA and popliteal stents History of anemia History of anxiety History of alcohol abuse started 1965, quit 1999 Hx of drug abuse started 1965, quit 1999 "used every drug known to man">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, stayed in for 13 years IV drug abuse hx-quit in 1981 History of hepatitis B hx IV drug use Hepatitis C virus has had since the late s>no tx, "never had any trouble with it" Heart failure with mid-range ejection fraction Follows with [facility] EF 50-55% per 05/2022 ECHO Type 2 diabetes mellitus HTN (hypertension) Surgical History History of amputation of great toe S/P CABG x 2 ~2021, went to ER w/"anxiety," found to be in congestive heart failure, had more cardiac testing, sent for f/u w/s cardio surgeon, done [facility]; f/u dr. mckeon Hx of cardiac catheterization 06/2021 [facility] History of open reduction and internal fixation (ORIF) procedure rt elbow and lt wrist>hardware intact Hx of colonoscopy History of left knee surgery 1988-tibial plateau reconstruction History of eye surgery retina History of cataract extraction rt/lt Social History Smoking Status: Current every day smoker Tobacco Type: Cigarettes Cigarettes Per Day: 12 per day >>advised; Second Hand Exposure: Yes (hx); Do You Dip or Chew Tobacco: No; Hx Alcohol Use: No Hx Substance Use: Yes Last Used Substance Other:: quit 1999-stated "used every drug known to man" Substance Use Type Other:: IV drugs Preferred Language: Armenian Communication Ability: Effective Preschool Assistant Director Required: No Beliefs That Will Affect Care: None Current Living Situation: Alone How many Children do You have: 1 Feels Safe at Home: Yes Assistive Devices: Glasses Review of Systems Review of Systems: All systems reviewed & are unremarkable except as noted in HPI & below Physical Exam Constitutional: + ill appearing and cooperative pleasant ENMT: Mouth: + poor dentition Neck: trachea midline, no thyromegaly Respiratory: normal respiratory effort, lungs clear to auscultation Cardiovascular: RRR, no murmur, no edema Gastrointestinal (Abdomen): normal bowel sounds, soft, nontender, no hepatosplenomegaly Results & Data Vital Signs (Past 12 Hours) Vital Signs Temp Pulse Resp BP Pulse Ox O2 Del Method 07/31/23 07:37 36.4 C L 76 16 171/74 H 94 Room Air Laboratory Results 07/31/23 07/31/23 07/30/23 Range/Units 07:50 07:36 20:45 WBC 6.15 (4.8-10.8) K/ul RBC 2.90 L (4.70-6.10) M/uL Hgb 7.5 L (14.0-18.0) g/dl Hct 23.8 L (42.0-52.0) % MCV 82.1 (80.0-100.0) fL MCH 25.9 (25.0-34.0) pg MCHC 31.5 L (32.0-36.0) g/dL RDW Std Deviation 47.8 H (36.4-46.3) fL RDW Coeff of Josh 16.1 H (11.5-14.5) % Plt Count 287 (130-400) K/uL MPV 10.6 (9.4-12.4) fL Sodium 134 L (136-145) mmol/L Potassium 3.5 (3.5-5.1) mmol/L Chloride 101 (98-107) mmol/L Carbon Dioxide 29 (21-32) mmol/L Anion Gap 4 (3-11) BUN 27 H (6-23) mg/dl Creatinine 1.35 (0.6-1.4) mg/dl Est Cr Clr Drug Dosing 55.1 ml/min Est GFR ( Amer) 60.8 ml/min Est GFR (Non-Af Amer) 52.4 ml/min BUN/Creatinine Ratio 20.0 (10-20) Glucose 121 H (70-99(Fasting)) mg/dl POC Glucose 135 H 125 H (70-99) mg/dl Calcium 7.4 L (8.6-10.3) mg/dl Iron (35-175) mcg/dl TIBC (250-450) mcg/dl Unsaturated IBC (155-355) mcg/dl Transferrin % Sat (20-50) % B-Natriuretic Peptide (0-100) pg/ml Stool Occult Bld Scrn (Negative) Random Vancomycin 19.0 (10-20) mcg/ml 07/30/23 07/30/23 07/30/23 Range/Units 18:40 16:28 11:35 WBC (4.8-10.8) K/ul RBC (4.70-6.10) M/uL Hgb (14.0-18.0) g/dl Hct (42.0-52.0) % MCV (80.0-100.0) fL MCH (25.0-34.0) pg MCHC (32.0-36.0) g/dL RDW Std Deviation (36.4-46.3) fL RDW Coeff of Josh (11.5-14.5) % Plt Count (130-400) K/uL MPV (9.4-12.4) fL Sodium (136-145) mmol/L Potassium (3.5-5.1) mmol/L Chloride (98-107) mmol/L Carbon Dioxide (21-32) mmol/L Anion Gap (3-11) BUN (6-23) mg/dl Creatinine (0.6-1.4) mg/dl Est Cr Clr Drug Dosing ml/min Est GFR ( Amer) ml/min Est GFR (Non-Af Amer) ml/min BUN/Creatinine Ratio (10-20) Glucose (70-99(Fasting)) mg/dl POC Glucose 144 H 122 H (70-99) mg/dl Calcium (8.6-10.3) mg/dl Iron (35-175) mcg/dl TIBC (250-450) mcg/dl Unsaturated IBC (155-355) mcg/dl Transferrin % Sat (20-50) % B-Natriuretic Peptide (0-100) pg/ml Stool Occult Bld Scrn Positive A (Negative) Random Vancomycin (10-20) mcg/ml 07/30/23 07/30/23 Range/Units 10:26 06:38 WBC (4.8-10.8) K/ul RBC (4.70-6.10) M/uL Hgb (14.0-18.0) g/dl Hct (42.0-52.0) % MCV (80.0-100.0) fL MCH (25.0-34.0) pg MCHC (32.0-36.0) g/dL RDW Std Deviation (36.4-46.3) fL RDW Coeff of Josh (11.5-14.5) % Plt Count (130-400) K/uL MPV (9.4-12.4) fL Sodium 135 L (136-145) mmol/L Potassium 3.5 (3.5-5.1) mmol/L Chloride 103 (98-107) mmol/L Carbon Dioxide 28 (21-32) mmol/L Anion Gap 4 (3-11) BUN 27 H (6-23) mg/dl Creatinine 1.44 H (0.6-1.4) mg/dl Est Cr Clr Drug Dosing 51.6 ml/min Est GFR ( Amer) 56.2 ml/min Est GFR (Non-Af Amer) 48.5 ml/min BUN/Creatinine Ratio 18.8 (10-20) Glucose 109 H (70-99(Fasting)) mg/dl POC Glucose (70-99) mg/dl Calcium 7.4 L (8.6-10.3) mg/dl Iron 16 L (35-175) mcg/dl TIBC 176 L (250-450) mcg/dl Unsaturated IBC 160 (155-355) mcg/dl Transferrin % Sat 9 L (20-50) % B-Natriuretic Peptide 234 H (0-100) pg/ml Stool Occult Bld Scrn (Negative) Random Vancomycin (10-20) mcg/ml Diagnostic Findings Foot X-Ray 07/12/23 00:21 LEFT FOOT TWO VIEWS CLINICAL HISTORY: Foot infection. FINDINGS: AP and lateral views of the left foot are obtained. Correlation is made with radiographs of the left first toe dated 09/14/2018. The skeletal structures are osteopenic. No acute fracture is seen. There is age indeterminate deformity/erosion involving the tuft of the first distal phalanx. There has likely been amputation of the second toe through the proximal interphalangeal joint. Moderate osteoarthritic change is noted at the first metatarsophalangeal joint. Milder degenerative change is seen throughout the remainder of the foot. There is a large plantar heel spur. Soft tissue edema is seen throughout the foot. There is mild atherosclerotic calcification of the regional arteries. IMPRESSION: 1. Soft tissue swelling with no fracture identified. 2. There is age indeterminant erosive change involving the tuft of the first distal phalanx. Correlate clinically for evidence of osteomyelitis. 3. Additional chronic degenerative and postsurgical changes as above. Dictated: 07/12/2023 7:24 AM Transcribed: 07/12/2023 8:26 AM Aung [id number] [email or web address] Electronically signed by: Amarjit Holt M.D. 07/12/2023 8:51 AM Chest X-Ray 07/12/23 00:22 XR chest 1V portable HISTORY: 72 years-old Male weakness acute weakness COMPARISON: 03/11/2023 TECHNIQUE: AP view of the chest FINDINGS: Cardiac silhouette is enlarged. Median sternotomy. Pulmonary vascular congestion. Ill-defined patchy opacities are most pronounced in the left lung seen within the left upper lung, lateral left midlung and left perihilar distributions. No pneumothorax or pleural effusion. Bones appear grossly intact. IMPRESSION: 1. Ill-defined patchy airspace opacities throughout the left lung may represent multifocal pneumonia. Short-term follow-up PA and lateral views of the chest recommended. 2. Cardiomegaly with pulmonary vascular congestion. ACT 112: Negative or not required by law. The above report was generated using voice recognition software. It may contain grammatical, syntax or spelling errors. Electronically signed by: Patrick Mario M.D. 07/12/2023 7:09 AM Duplex Scan Lower Extremity Artery 07/12/23 09:33 US arterial duplex LE LT HISTORY: 72 years-old Male PAD, fem-ant tib bypass peripheral arterial disease COMPARISON: 05/06/2023. TECHNIQUE: Multiple real-time sonographic images of the left lower extremity arterial structures were obtained assessing grayscale appearance, color and spectral flow. FINDINGS: There is diffuse atherosclerosis. Subcutaneous edema is noted throughout. Patent graft extends from the common femoral artery to the region of the tibioperoneal trunk. Chronic occlusion of the [place] superficial femoral and popliteal arteries. Elevated peak systolic velocities within the distal posterior tibial artery measure up to 262 cm/s. Minimal to no arterial flow within the peroneal and anterior tibial arteries. Blunted monophasic waveforms in the dorsalis pedis artery also demonstrate diminished flow with peak systolic velocities measuring approximately 26 cm/s. Likely benign left inguinal chain lymph nodes with central fatty kavon measure up to 1.4 cm in short axis. IMPRESSION: 1. Atherosclerosis with patent arterial graft extending from the common femoral artery to the upper calf. 2. Elevated peak systolic velocities within the posterior tibial artery compatible with arterial stenosis. 3. Minimal flow within the peroneal and anterior tibial arteries. ACT 112: Negative or not required by law. The above report was generated using voice recognition software. It may contain grammatical, syntax or spelling errors. Dictated: 07/12/2023 11:49 AM Transcribed: 07/12/2023 12:08 PM Jose Angel [id number] [email or web address] [id number] Electronically signed by: Patrick Mario M.D. 07/12/2023 1:08 PM Chest X-Ray 07/20/23 16:03 XR chest 1V portable CLINICAL HISTORY: f/u prior abnormal COMPARISON STUDY: Chest radiographs March 11, 2023 and July 12, 2023. FINDINGS: Median sternotomy wires are noted. There is no pneumothorax or pleural effusion. Cardiomegaly is unchanged. Pulmonary vascular congestion is again noted. Patchy left lung densities have slightly improved. Minimal right basilar opacity is likely present. IMPRESSION: 1. Mild improvement in left lung airspace opacities. The findings favor im proving pneumonia. Follow-up PA and lateral chest radiographs in 1 month to ensure complete resolution are recommended. 2. Cardiomegaly with pulmonary vascular congestion. 3. Minimal right basilar opacity. This is likely atelectatic although an infectious process could appear similar. ACT 112: Negative or not required by law. Electronically signed by: Preston Dumont M.D. 07/20/2023 5:[address] 07/21/23 14:05 CT chest diagnostic wo con CT DOSE: 677.88 mGy.cm CLINICAL HISTORY: 72 years-old Male with Concern for PNA. Acute shortness of breath TECHNIQUE: Multiaxial CT images of the chest were performed without contrast. A dose lowering technique was utilized adhering to the principles of ALARA. COMPARISON: Chest radiograph 07/20/2023 FINDINGS: No thyroid nodule. Mediastinal and hilar lymphadenopathy includes a 1.2 cm precarinal lymph node with central fatty hilum. Mild cardiomegaly. Extensive [place] coronary artery calcifications. Median sternotomy with CABG. Atherosclerosis of the aorta without aneurysm. Trace left and small right pleural effusions. No pneumothorax. Mild dependent subsegmental bibasilar atelectasis. There are are numerous multilobar bilateral irregular consolidative foci, most of which demonstrate central cavitation measuring up to approximately 2.4 cm and the left upper lobe on image 91. Numerous additional scattered mostly subcentimeter pulmonary nodules without central cavitation. There is a 6 cm ill-defined subpleural consolidative opacity of the lingula on image 111. Central airways are patent. The spleen appears mildly enlarged. Ill-defined 4.6 cm right hepatic lobe lesion on image 46 series 2. No acute fracture or destructive bone lesion identified. Chronic left-sided rib fractures with incomplete bony fusion involving a subacute chronic fracture of the left posterolateral seventh rib. Age- indeterminate superior endplate Schmorl's node at T11. IMPRESSION: 1. Numerous multilobar bilateral distribution of irregular centrally cavitary nodular areas of consolidation. Differential considerations include necrotic pneumonia, septic emboli versus pulmonary metastasis. Close follow-up is needed. 2. Mild mediastinal and hilar lymphadenopathy. 3. Right greater left pleural effusions. 4. Numerous subcentimeter scattered bilateral solid pulmonary nodules. 5. Suspicious indeterminate 4.6 right hepatic lobe mass could be further evaluated with tissue sampling. ACT 112: Negative or not required by law. Electronically signed by: Patrick Mario M.D. 07/21/2023 4:11 PM (1) Anemia Anemia type: unspecified type Qualified Code(s): D64.9 - Anemia, unspecified
[2023-07-31] MEDS: SERTRALINE HCL 50 MG TABLET PO SCH (09:25)
[2023-07-31] MEDS: IRON SUCROSE 200 MG in 0.9 % SODIUM CHLORIDE 100 ML IV ONE (10:23)
[2023-07-31] MEDS: amLODIPine BESYLATE 5 MG TAB PO ONE (11:06)
--- NOTE | 2023-07-31 11:39 | Pharmacy Report ---
Pharmacy PK ABX Note - Date of Service July 31, 2023 - Assessment and Plan Assessment 07/30: * Day 5 of vancomycin, scr remains stable. Per ID, plan to continue vancomycin until 08/17. 07/28: * Continues on vancomycin monotherapy. Day # 3 vancomycin. SCr remains stable ~ 1.5mg/dl. REGINE (-). 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 ID following- anticipated prolonged treatment course. 07/11 blood cultures (+) MRSA in /, 07/18 blood cultures (+) MRSA in 2/, and 07/20 blood cultures (-). Plan for REGINE. Day #1 of vancomycin antimicrobial therapy. (start date of treatment = 07/20) Plan Vancomycin * Current regimen: vancomycin 1250mg IV q24h * Random level today, 19 mcg/ml (~11h level)- predicted to achieve ssAUC 482mg/L.hr - therapeutic. * Continue vancomycin 1250mg IV q24h. * Will repeat a level in ~ 48h -72 hours if patient remains admitted. Pharmacy will continue to follow and will adjust dose/frequency as necessary. Thank you. Pharmacy has transitioned to AUC monitoring for vancomycin. AUC/MISA is the preferred PK/PD target and is associated with decreased risk of nephrotoxicity compared to traditional trough targets.
--- NOTE | 2023-08-01 09:10 | Discharge Summary ---
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 Patient presents to the emergency department due to family concerns regarding worsening generalized weakness, and worsening of his left great toe infection. He reports having a outpatient appointment with Dr. Ambriz in 4 days, to discuss further treatment of his left great toe Principal Diagnosis MRSA bacteremia / diabetic foot Discharge Exam Patient is resting comfortably. HEENT: Pupils are equal and reactive to light and accommodation. Extraocular movements are intact. The sclerae are anicteric. Neuro: Cranial nerves intact Lungs: Clear to auscultation bilaterally. He has good air movement without use of accessory muscles. No rales wheezes or rhonchi. Cardiac: Heart demonstrates a regular rate and rhythm. Normal S1 and S2. No murmurs on examination. Extremities: No clubbing or cyanosis in the hands. Discoloration an eschar noted on the left foot primarily the toes. Discharge Data Allergies Allergy/AdvReac Type Severity Reaction Status Date / Time cat dander Allergy Intermediate CONGESTION Verified 07/12/23 02:04 Consultations 07/12/23 02:58 ED Decision to Admit Stat 07/12/23 03:29 Consult Vascular Surgery Routine 07/13/23 01:47 Consult Cardiology Routine 07/19/23 13:59 Consult Nephrology Routine 07/20/23 17:49 Consult Infectious Diseases Routine 07/26/23 10:06 Consult Anesthesiology Routine 07/30/23 10:45 Consult Gastroenterology Routine Procedures Performed Operation Date: 07/27/23 07:15 Actual Procedures p Echo Transesophageal - Salvador Aguirre MD s Echo Color Flow - Salvador Aguirre MD s Echo Doppler Complete - Salvador Aguirre MD Ordered Studies 07/12/23 09:33 US arterial duplex LE LT Routine 07/21/23 14:05 CT chest without contrast [CT chest diagnostic wo con] Routine Diabetes Follow up Diabetes Follow-up Needed for HgbA1c >9% Hospital Course (1) MRSA bacteremia: MRSA bacteremia/sepsis secondary to diabetic foot ulcer /gangrene status post recent second toe amputation and great toe debridement for peripheral artery disease by Dr. Simoni performed on 06/16/2023 Now S/P left great toe amputation secondary to Gangrene to peripheral vascular disease on 07/14 Blood culture (07/11) +MRSA; repeat cultures (07/18) 1/2 +MRSA; repeat cultures (07/20) negative at this time stopping ceftaroline CT Chest: Numerous multilobar bilateral distribution of irregular centrally cavitary nodular areas of consolidation. Differential considerations include necrotic pneumonia, septic emboli versus pulmonary metastasis. Close follow up on this imaging should be performed. TTE without vegetation; given persistent bacteremia consider REGINE - spoke with cardiology, will likely forego this and tx as presumed endocarditis based on clinical suspicion ID following - initially on daptomycin and cefepime --> now on daptomycin and ceftaroline for dual MRSA coverage with plan to ultimately continue treatment with daptomycin only x6 weeks from first negative BCx(07/21/23->09/01/23) Will need weekly monitoring of cbc, cmp, and cpk. Would also recommend repeating blood cultures 1 week after daptomycin is completed Hold statin while on dapto Diabetic foot infection/MRSA osteomyelitis/MRSA bacteremiasuspect most likely wound infection/cellulitis progressed to bacteremia, although obviously it is possible he had spontaneous bacteremia that seeded in his footbut given that he had the preceding foot ulcer/wound it seems more likely that the skin infection is primary. Stable and postopcontinue wound VAC. Bacteremia Unfortunately was persistent. Endocarditis would be a diagnosis of exclusion, given his extensive infection, D/W ID on 07/25 Plan is for REGINE to exclude vegetation and endocarditis given porlonged bacteremia and posible septic emboli. With possible septic emboli in his lungs, will switch to vancomycin for 4 weeks. REGINE was negative. Anticipate need for rehabas high complexity given the bacteremia, the ongoing antibiotics, the wound VAC/wound care, the therapy needsinitially he had been denied for rehab, but this was submitted before his blood cultures remained positive, and before his situation was much more complicated. At this point I think it quite reasonable to think an acute rehab facility would be most appropriate for his dispositionand assuming his cultures remain negative, case management working on getting rehab placed. Transitioned pain medicine to oxycodone. tyelnol is alsp placed scheduled. Rehab (inpatient) was denied. On 07/29 hemoglobin droppped further. reviewed cbc and iron stdies. Lab values point towards an iron defieciency anemia. Consulted GI no indication for endoscopy. will hold eliquis and plavix at least for a week to ensure hemoglobin stability. Patient received 200 mg venofer for 2 days prior to discharge. If hemoglobin continues to drop, will need to consider further investigation (2) Heart failure with ejection fraction improved from reduced range to preserved range: CAD and Cardiomyopathy s/p CABG with MOSLEY, afib (kushal operative) -continue cardilol, Lasix, Plavix -initial troponin 39.4, peaked. Suspect demand. (3) Atrial fibrillation: -cardiology following - initially started on amiodarone 400mg BID - transitioned to 200mg daily -hold eliquis as above. (4) DM (diabetes mellitus): Cont. 20 units glargine qam + SSI Hold metformin Cont. Jaundice per nephrology (5) Hyponatremia: Improving Nephrology following - continue Lasix, jardiance, salt tab - salt tab can be d/c'd once Na normalizes - fluid restriction to <1500 ml/day (6) Acute kidney injury superimposed on CKD: Acute kidney injury superimposed on CKD-3, resolved - now at baseline 1.3 Nephrology is following Holding spironolactone Anemia of chronic disease s/p venofer per nephrology CAUTION as on Eliquis (7) Tobacco abuse: Counseled regarding cessation (8) Liver mass: Seen on CT imaging -would further evaluate with biopsy - can be done as an outpatient but if hospitalized for prolong period of time can try to obtain as inpatient Plan DVT ppx: eliquis FEN/GI: DM2 Code Status: full Dispo: med surg Total Time Total Time Spent Total Time Spent (In Minutes): 32 Discharge Plan Discharge Items Patient Disposition: Transfer Longterm Fac Reason For Visit: SEPSIS DUE TO DIABETIC FOOT INFECTION Discharge Diagnosis: sepsis, diabetic foot ulcer/gangrene Activity: Per Instructions section Non-emergency contact: Primary Care Provider Call non-emergency contact if: you have any medication questions, your symptoms worsen, your temperature is above 101, your wound has increased drainage and your wound pain has increased Follow-up/Referrals: Elmer Fraire MD [Primary Care Provider] - Diet: Carb Consistent or DM2 Addtl Attending Provider Instructions: Mr. Alvarez, while hospitalized you were diagnosed with MRSA bacteremia. Instructions are provided below regarding continued treatment of this. -Please continue on IV Vancomycin for 4 weeks. This will end on 08/18/2023. -While on IV antibiotics, we recommend you obtain weekly labs including a CBC, CMP, and vancomycin antibiotic levels. -After the vancomycin has been completed, we recommend repeat blood cultures around 08/25/2023. -Please follow up with wound care for continued management of wound. -Please follow up with Dr. Ambriz (your vascular surgeon) within 1 week of discharge. -For pain management please use Tylenol 650mg four times a day. For breakthrough pain please use oxycodone every 6 hours as needed. -You also have shown evidence of anemia. We recommend continuing to follow this as an outpatient. You will be getting your blood counts checked weekly while on antibiotics which will also help monitor your anemia. -There was evidence of a liver mass seen on imaging during your hospitalization stay and we recommend to follow up for a biopsy as an outpatient. This can be arranged through your PCP. -For your chronic conditions, we recommend resuming your previous medications. -For heart failure, we recommend continuing on Carvedilol, Lasix. -will consider adding Entresto and spironolactone at your outpatient followup. -For diabetes, we recommend continuing on Jardiance, metformin, and insulin therapy. -For atrial fibrillation. We started you on amiodarone during your hospitalization which can be continued outpatient. -We held the plavix and eliquis due to concern of bleeding but this can be resumed in a week if hemoglobin has been stable. Again this will need to be monitored. -Please follow up with your PCP within 1-2 weeks following discharge. Will need to discuss possible endoscopy. Pending Studies at Discharge: No Stand-Alone Forms: My [facility] Skilled Items Patient informed of condition?: Yes DNR: No Discharge Level of Care: Skilled Communicable Disease: Yes Discharge Prognosis: Stable Lines: PICC Urinary Catheter: No Medications and DC Order Prescriptions: New amiodarone 200 mg Tablet 200 mg PO QAM Qty: 30 0RF gabapentin 300 mg Capsule 300 mg PO BID Qty: 60 0RF morphine 15 mg tablet extended release 15 mg PO Q12H 14 Days Qty: 28 0RF pantoprazole 40 mg Tablet,Delayed Release (Dr/Ec) 40 mg PO DAILY@1100 Qty: 30 0RF sodium chloride 1,000 mg Tablet,Soluble 1,000 mg PO BID Qty: 30 0RF vancomycin 1.25 gram recon soln 1.25 g IV .@2200 Qty: 19 0RF Rx Instructions: @2200 acetaminophen 325 mg Tablet 650 mg PO QID Qty: 120 0RF ferrous sulfate 325 mg (65 mg iron) tablet 325 mg PO MOWEFR Qty: 30 0RF amlodipine 2.5 mg tablet 2.5 mg PO PM Qty: 30 0RF oxycodone 5 mg tablet 5 mg PO Q4H PRN (Reason: pain) Qty: 30 0RF Continued sertraline [Zoloft] 50 mg tablet 75 mg PO QAM Jardiance 25 mg Tablet 25 mg PO QAM furosemide 20 mg Tablet 20 mg PO QAM metformin 1,000 mg tablet 1,000 mg PO BID atorvastatin [Lipitor] 80 mg tablet 80 mg PO QAM Qty: 30 0RF Changed carvedilol 3.125 mg tablet 3.125 mg PO BID Qty: 60 0RF Rx Instructions: must administer with a meal/food insulin glargine [Lantus Solostar U-100 Insulin] 100 unit/mL (3 mL) insulin pen 20 unit subcut QAM Qty: 0 0RF Held Eliquis 5 mg tablet 5 mg PO BID Hold Instructions: Resume on 08/08/23. clopidogrel 75 mg tablet 75 mg PO QAM Hold Instructions: Resume on 08/08/23. Discontinued Entresto 24-26 mg tablet 1 tab PO BID amlodipine [Norvasc] 5 mg Tablet 5 mg PO QAM gabapentin 100 mg Capsule 100 mg PO DAILY spironolactone [Aldactone] 25 mg tablet 25 mg PO QAM oxycodone-acetaminophen [Percocet] 5-325 mg tablet 1 tab PO Q8H PRN (Reason: pain) Qty: 20 0RF Discharge Orders: Discharge Order (Routine); Ordered 07/31/23 Ordered By: Anibal Castaneda/Other Patient Handouts: Nutrition for Wound Healing, Managing Type 2 Diabetes Admission Data Admit Date/Time: 07/12/23 03:04 Attending Provider: Anibal Tobin Admit Provider: Darío Atkins Primary Care Provider: Elmer Fraire Other Providers: [facility] [place]; [facility]; Darío Atkins; Bhavin Ambriz; Anthony Barillas; Morro Larsen; Sheila Nagy; Suzanne Agrawal; Paulette Schmidt; Brooke Vines; Victor Manuel Olvera; Yaw Jacobo; Neo Bernabe; Vaibhav Michelle; Obdulia Michelle; Darryl Lincoln; Divya Callahan; Jak Aguilar; Ishmael Shrestha; Lucho Carrera; Phillip Akhtar; Jo Livingston; Jarrett Sotelo A; Silva Sotelo; Diony James; Brianna Domínguez; Nav Vogt.; Alice Clark; Ivelisse Gambino; Florencio Galvan; Rachna Case A; Jovana Ibrahim; April Franks; Judy Graves; Fermin Graves V; Andi Perez; Suzanne Laureano; Piter Barriga; Pau Tamayo; Fermin Gold; Marquis Seay; Cody Currie; Marge Moon; Peggy Qiu; Fermin Hale; Isaac Howard.; Yanira Brewer.; Amarjit Burrell.; Salima Gil; Armida Kendall; Solomon Hardin; Jon Akhtar; Farheen Talamantes.; Gus David; Petar Stock; Elmer Mari; Victor Manuel Rosario Jr; Rhonda Murillo; Faye Ge A.; Shania Delgado; Florencio Ace; Vaibhav Black.; Ashley Moreira S.; Faye Curiel A.; Hari Castro; Florian Peters; Wilfred Gastelum; Jonnathan Monroy; Spencer Prabhakar; Sammi Johns; Earlene Clemente; Isela Pendleton; Amara Worthington; Tara Guillen Jr Other Interventions: Discharge Summary Assessment (RN) Last Done: 07/31/23 10:38 Coding Level of Care Code 43639 INP/OBS DISCH >30 MIN Diagnoses MRSA bacteremia R78.81; B95.62 Heart failure with ejection fraction improved from reduced range to preserved range I50.32 Atrial fibrillation I48.91 DM (diabetes mellitus) E11.9 Hyponatremia E87.1 Acute kidney injury superimposed on CKD N17.9; N18.9 Tobacco abuse Z72.0 Liver mass R16.0
--- NOTE | 2023-08-02 21:45 | Electrocardiogram Report ---
Test Reason : Blood Pressure : / mmHG Vent. Rate : 069 BPM Atrial Rate : 069 BPM P-R Int : 172 ms QRS Dur : 124 ms QT Int : 420 ms P-R-T Axes : 056 -31 116 degrees QTc Int : 450 ms Normal sinus rhythm Left axis deviation Possible Anteroseptal infarct , age undetermined T wave abnormality, consider lateral ischemia Abnormal ECG When compared with ECG of 12-JUL-2023 23:03, Sinus rhythm has replaced Atrial fibrillation Vent. rate has decreased BY 89 BPM Borderline criteria for Anteroseptal infarct are now Present T wave inversion more evident in Lateral leads Confirmed by Tim Jimenez [id number] on 08/02/2023 9:45:23 PM Referred By: REFERRED SELF Confirmed By:Tim Jimenez
== END 2023-07-31 13:11 | DRG 853 ==
LOC: ED 00:11 → SUATTDRO 03:04 → EDINP 03:04 → 2S 06:20 → 3W 07-23 13:41
DX: Z79.01 Long term (current) use of anticoagulants; L03.116 Cellulitis of left lower limb; E87.1 Hypo-osmolality and hyponatremia; E11.22 Type 2 diabetes mellitus with diabetic chronic kidney disease; I47.10 Supraventricular tachycardia, unspecified; L98.494 Non-pressure chronic ulcer of skin of other sites with necrosis of bone; Z79.4 Long term (current) use of insulin; K76.9 Liver disease, unspecified; Z95.1 Presence of aortocoronary bypass graft; Z79.899 Other long term (current) drug therapy; I50.22 Chronic systolic (congestive) heart failure; F41.9 Anxiety disorder, unspecified; Z79.84 Long term (current) use of oral hypoglycemic drugs; I70.268 Atherosclerosis of native arteries of extremities with gangrene, other extremity; I25.5 Ischemic cardiomyopathy; I48.91 Unspecified atrial fibrillation; I95.9 Hypotension, unspecified; N17.9 Acute kidney failure, unspecified; Z79.82 Long term (current) use of aspirin; Z79.02 Long term (current) use of antithrombotics/antiplatelets; N18.30 Chronic kidney disease, stage 3 unspecified; E11.40 Type 2 diabetes mellitus with diabetic neuropathy, unspecified; A41.02 Sepsis due to Methicillin resistant Staphylococcus aureus; I24.89 Other forms of acute ischemic heart disease; E11.52 Type 2 diabetes mellitus with diabetic peripheral angiopathy with gangrene; Z89.412 Acquired absence of left great toe; Z89.422 Acquired absence of other left toe(s); I76 Septic arterial embolism; E11.69 Type 2 diabetes mellitus with other specified complication; I13.0 Hypertensive heart and chronic kidney disease with heart failure and stage 1 through stage 4 chronic kidney disease, or unspecified chronic kidney disease; F17.210 Nicotine dependence, cigarettes, uncomplicated; D63.8 Anemia in other chronic diseases classified elsewhere; I25.10 Atherosclerotic heart disease of native coronary artery without angina pectoris; N18.9 Chronic kidney disease, unspecified; I26.90 Septic pulmonary embolism without acute cor pulmonale; M86.8X7 Other osteomyelitis, ankle and foot

== ENCOUNTER 2023-08-05 10:46 | Inpatient (IN) ==
--- NOTE | 2023-08-05 12:15 | Emergency Department Note ---
Impression & Plan Diabetic infection of left foot, Anemia, Cellulitis in diabetic foot ED Provider Note NAME: ELLEN PELAEZ AGE: 72 SEX: M : 1950 ARRIVES VIA: Ambulance INFORMANT: Patient, ED PROVIDER(S): Robb Singh MD CHIEF COMPLAINT: Outpatient referral, foot infection MEDICAL DECISION MAKING: Patient presented due to concern for worsening left foot infection. IV was established and blood work was obtained. I did speak with the ED pharmacist Teresa to help facilitate appropriate antibiotics given that the patient is currently on outpatient vancomycin. Patient's blood work shows a white count of 11 with a hemoglobin of 8. The patient's platelet count is unremarkable. Kidney function unremarkable. Troponin is not elevated. Urinalysis shows glucose but no evidence of blood or infection. Patient did receive vancomycin and Zosyn IV. Patient also did receive IV morphine. Patient's foot x-ray shows subchondral lucency within the residual first metatarsal and medial cuneiform bone which demonstrated a demineralized appearance. No acute fractures noted. I did speak the on-call hospitalist service Dr. Horne and the patient was admitted to the medicine service Discussion w/ other healthcare providers: None Prior /Outside records reviewed: I reviewed a wound care clinic visit note from earlier today. Patient was seen in clinic and there was concern for nonhealing surgical wound and possible abscess as the patient has had malodorous and copious amounts of purulent drainage. Patient's wound was debrided at that time. Patient also has had wounds noted to the sacrum and buttocks which are relatively small in nature. No reported odor and only scant drainage noted. I reviewed a discharge summary from July [address] Tobin the patient had presented due to concern for diabetic foot ulcer gangrene status post second toe amputation and great toe debridement for PAD with Dr. Ambriz now with left great toe amputation subsequently and was admitted for MRSA bacteremia. Patient did have a TTE without vegetation. 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 Diagnostics, as interpreted by me: ECG: None Cardiac monitoring: An order was placed for continuous cardiac monitoring. The monitor shows a rate of 78 with sinus rhythm. Patient was placed on pulse oximetry Medical decision rules: None Imaging studies: I informally interpreted the patient's foot x-ray does not show obvious dislocation with formal report to follow. HPI: Patient presents due to concern for possible worsening wound infection of his left foot. The patient was seen in wound clinic today. Patient denies any chest pain shortness of breath nausea vomiting. The patient denies any fevers or chills. Patient did have a wound VAC which was removed today at clinic. Patient denies any falls or trauma. He currently resides in rehab. The patient does complain of pain to the left foot. Patient denies any alcohol or drug use but is a smoker. PAST MEDICAL HISTORY: See Below PAST SURGICAL HISTORY: See Below SOCIAL HISTORY: See Below HOME MEDICATIONS: See Below ALLERGIES: See Below VITALS: See Below PHYSICAL EXAMINATION: GENERAL: NAD, non-toxic. Wearing glasses and had. EYE EXAM: Normal conjunctiva. PERRL, no anisocoria and EOM's grossly intact w/o pain. OROPHARYNX: Moist mucus membranes, grossly normal dentition. NECK: Trachea midline, no stridor. Supple, no nuchal rigidity, no adenopathy, non-tender. No signs of meningismus. FROM of the neck with good chin to chest and neck extension. LUNGS: Clear to auscultation. Normal chest wall mechanics. HEART: NSR, no MRG. ABDOMEN: Abdomen soft, non-tender, no masses, no rebound or guarding. BACK: No CVA TTP. SKIN: No rashes and no bruising. UPPER EXTREMITIES: Upper extremities are grossly normal. Right upper extremity PICC line in place. Viral syndrome, otitis, pharyngitis, pneumonia, influenza, meningitis, urinary tract infection, sepsis, bacteremia, as well as other pathologies. LOWER EXTREMITIES: Grossly normal, left foot with 4 cm open wound over the distal medial aspect of the left foot absent great toe, probes to bone malodorous, purulent drainage noted, associated erythema and TTP without crepitus and compartments are soft. Erythema extends to the proximal ankle. NEURO EXAM: A&O x3, cranial nerves II-XII grossly intact, normal speech, moves all 4 extremities. Past Med/Surg History Problem List (Updated 08/05/23 @ 19:34 by Robb Singh MD) Cellulitis in diabetic foot (Acute) Anemia (Acute) Diabetic infection of left foot (Acute) Diabetic infection of left foot Wound infection Surgical wound, non healing Liver mass MRSA bacteremia Hyponatremia Supraventricular tachycardia Atrial fibrillation Multifocal pneumonia (Acute) Sepsis (Acute) Peripheral arterial disease with history of revascularization Ulcer of toe Diabetic foot ulcer Acute kidney injury superimposed on CKD 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 Heart failure with ejection fraction improved from reduced range to preserved range Anxiety (Acute) Anemia (Acute) hx GIB (gastrointestinal bleeding) (Acute) Chest pain (Acute) DVT prophylaxis Arterial occlusion, lower extremity (Acute) Medical History History of atrial fibrillation CAD (coronary artery disease) s/p CABG x 2 vessel June 2021 Acute HFrEF (heart failure with reduced ejection fraction) Follows with [facility] EF 50-55% per 05/2022 ECHO Cardiomyopathy Dyslipidemia Tobacco abuse smoke-12/day DM (diabetes mellitus) Atherosclerosis of artery of left lower extremity s/p left leg angiogram procedure with [employer] of proximal vein bypass 05/27/23 s/p left leg femoral artery to posterior tibial artery reverse saphenous vein bypass done at [facility] [place] 02/2023 s/p left SFA and popliteal stents History of anemia History of anxiety History of alcohol abuse started 1965, quit 1999 Hx of drug abuse started 1965, quit 1999 "used every drug known to man">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, stayed in for 13 years IV drug abuse hx-quit in 1981 History of hepatitis B hx IV drug use Hepatitis C virus has had since the late s>no tx, "never had any trouble with it" Heart failure with mid-range ejection fraction Follows with [facility] EF 50-55% per 05/2022 ECHO Type 2 diabetes mellitus HTN (hypertension) Surgical History History of amputation of great toe S/P CABG x 2 ~2021, went to ER w/"anxiety," found to be in congestive heart failure, had more cardiac testing, sent for f/u w/s cardio surgeon, done @[facility]; f/u dr. mckeon Hx of cardiac catheterization 06/2021 [facility] History of open reduction and internal fixation (ORIF) procedure rt elbow and lt wrist>hardware intact Hx of colonoscopy History of left knee surgery 1988-tibial plateau reconstruction History of eye surgery retina History of cataract extraction rt/lt Social History Smoking Status: Current every day smoker Tobacco Type: Cigarettes Cigarettes Per Day: 12 per day >>advised; Second Hand Exposure: Yes (hx); Do You Dip or Chew Tobacco: No; Hx Alcohol Use: No Hx Substance Use: Yes Last Used Substance Other:: quit 1999-stated "used every drug known to man" Substance Use Type Other:: IV drugs Preferred Language: Armenian Communication Ability: Effective Package Handler Required: No Beliefs That Will Affect Care: None Current Living Situation Comment: [facility] until at least 08/18/23 current occupational status: disabled How many Children do You have: 1 Feels Safe at Home: Yes Assistive Devices: Glasses and Wheelchair Allergies Allergies Allergy/AdvReac Type Severity Reaction Status Date / Time cat dander Allergy Intermediate CONGESTION Verified 08/05/23 16:21 Home Meds Home Medications Medication Instructions Recorded Confirmed Heparin Porcine Lock Flush 5 ml IV .Q SHIFT 08/05/23 08/05/23 Protien Liquid 30 ml PO BID 08/05/23 08/05/23 Vancomycin Iv Solution 1.25 g IV DAILY 08/05/23 08/05/23 acetaminophen 650 mg 650 mg PO QID 08/05/23 08/05/23 tablet,extended release amiodarone 200 mg tablet 200 mg PO DAILY 08/05/23 08/05/23 amlodipine 2.5 mg tablet 2.5 mg PO HS 08/05/23 08/05/23 apixaban 5 mg tablet (Eliquis) 5 mg PO BID 08/05/23 08/05/23 atorvastatin 80 mg tablet (Lipitor) 80 mg PO HS 08/05/23 08/05/23 carvedilol 3.125 mg tablet 3.125 mg PO BID 08/05/23 08/05/23 clopidogrel 75 mg tablet 75 mg PO QAM 08/05/23 08/05/23 empagliflozin 25 mg tablet 25 mg PO DAILY 08/05/23 08/05/23 (Jardiance) ferrous sulfate 325 mg (65 mg 325 mg PO 3XWK 08/05/23 08/05/23 iron) tablet furosemide 20 mg tablet 20 mg PO DAILY 08/05/23 08/05/23 gabapentin 300 mg capsule 300 mg PO BID 08/05/23 08/05/23 insulin glargine 100 unit/mL 25 unit subcut DAILY 08/05/23 08/05/23 subcutaneous solution (Lantus U-100 Insulin) insulin lispro 100 unit/mL 1 sliding scale dose subcut 08/05/23 08/05/23 subcutaneous cartridge (Humalog USEASDIRECTD U-100 Insulin) metformin 1,000 mg tablet 1,000 mg PO BID 08/05/23 08/05/23 morphine 15 mg tablet,extended 15 mg PO Q12 08/05/23 08/05/23 release oxycodone 5 mg tablet 5 mg PO Q4 PRN Pain 08/05/23 08/05/23 pantoprazole 40 mg tablet,delayed 40 mg PO DAILY 08/05/23 08/05/23 release (Protonix) sertraline 25 mg tablet 73 mg PO DAILY 08/05/23 08/05/23 sodium chloride 1,000 mg soluble 1,000 mg PO AMHS 08/05/23 08/05/23 tablet Results & Data (ED) Vital Signs Vital Signs - 24 hr 08/05/23 11:09 08/05/23 11:24 08/05/23 11:33 Temperature 36.7 C Temperature Source Temporal Artery Scan Pulse Rate 78 79 Pulse Rate [Apical] 78 Respiratory Rate 14 18 Respiratory Effort / Characteristics Non-Labored Spontaneous Respiratory Depth Normal Respiratory Pattern Regular Blood Pressure 123/68 Blood Pressure [Left Arm] 135/64 Blood Pressure Mean 86 Blood Pressure Mean [Left Arm] 87 Blood Pressure Position [Left Arm] Lying Pulse Oximetry 95 Oxygen Delivery Method Room Air Sepsis New/Unexplained Change in Mental Status No Sepsis Action Taken by Nursing No Action Required 08/05/23 14:15 08/05/23 15:45 08/05/23 16:00 Temperature Temperature Source Pulse Rate 82 Pulse Rate [Apical] 77 79 Respiratory Rate 18 15 Respiratory Effort / Characteristics Non-Labored Spontaneous Respiratory Depth Normal Respiratory Pattern Regular Blood Pressure Blood Pressure [Left Arm] 156/75 H 160/78 H Blood Pressure Mean Blood Pressure Mean [Left Arm] 102 105 Blood Pressure Position [Left Arm] Lying Pulse Oximetry 93 95 Oxygen Delivery Method Room Air Sepsis New/Unexplained Change in Mental Status Sepsis Action Taken by Alf Medications Current Medication List: was personally reviewed by me Laboratory Data Attestation: I reviewed the patient's lab results. 08/05/23 11:55 08/05/23 11:55 Lab Results 08/05/23 08/05/23 Range/Units 11:55 13:00 WBC 11.88 H (4.8-10.8) K/ul RBC 3.09 L (4.70-6.10) M/uL Hgb 8.0 L (14.0-18.0) g/dl Hct 26.0 L (42.0-52.0) % MCV 84.1 (80.0-100.0) fL MCH 25.9 (25.0-34.0) pg MCHC 30.8 L (32.0-36.0) g/dL RDW Std Deviation 50.2 H (36.4-46.3) fL RDW Coeff of Josh 16.5 H (11.5-14.5) % Plt Count 390 (130-400) K/uL MPV 9.8 (9.4-12.4) fL Immature Gran % (Auto) 1.0 % Neut % (Auto) 82.3 % Lymph % (Auto) 7.7 % Rowan % (Auto) 7.2 % Eos % (Auto) 1.4 % Baso % (Auto) 0.4 % Neut # (Auto) 9.78 H (1.40-6.50) K/uL Lymph # (Auto) 0.91 L (1.20-3.40) K/uL Rowan # (Auto) 0.85 H (0.11-0.59) K/uL Eos # (Auto) 0.17 (0.00-0.50) K/uL Baso # (Auto) 0.05 (0.00-0.20) K/uL Immature Gran # (Auto) 0.12 (0.01-0.20) K/uL PT 12.6 H (9.0-12.0) Seconds INR 1.2 H (0.9-1.1) Sodium 133 L (136-145) mmol/L Potassium 3.8 (3.5-5.1) mmol/L Chloride 101 (98-107) mmol/L Carbon Dioxide 27 (21-32) mmol/L Anion Gap 5 (3-11) BUN 17 (6-23) mg/dl Creatinine 1.29 (0.6-1.4) mg/dl Est Cr Clr Drug Dosing Not Reportable Est GFR ( Amer) 64.2 ml/min Est GFR (Non-Af Amer) 55.4 ml/min BUN/Creatinine Ratio 13.2 (10-20) Glucose 101 H (70-99(Fasting)) mg/dl Lactate 0.8 (0.4-2.0) mmol/L Calcium 7.7 L (8.6-10.3) mg/dl Total Bilirubin 0.4 (0.2-1.0) mg/dl AST 19 (13-39) U/L ALT 15 (7-52) U/L Alkaline Phosphatase 95 (34-104) U/L Troponin I High Sens 19.5 (0-20) pg/ml Total Protein 7.2 (6.0-8.3) gm/dl Albumin 2.2 L (3.4-5.0) gm/dl Globulin 5.0 H (2.5-4.0) gm/dl Albumin/Globulin Ratio 0.4 L (0.9-2) Procalcitonin 0.16 (0-0.5) ng/ml Urine Color Yellow Urine Appearance Clear (Clear) Urine pH 5.5 (4.5-7.5) Ur Specific [place] 1.018 (1.000-1.030) Urine Protein Trace H (Negative) Urine Glucose (UA) 3+ H (Negative) Urine Ketones Negative (Negative) Urine Blood Negative (Negative) Urine Nitrite Negative (Negative) Urine Bilirubin Negative (Negative) Urine Urobilinogen Negative (Negative) Ur Leukocyte Esterase Negative (Negative) Urine WBC (Auto) 0-5 (0-5) /hpf Urine RBC (Auto) 0-2 (0-2) /hpf U Hyaline Cast (Auto) 0-2 (0-2) /lpf U Epithel Cells (Auto) 0-2 (0-2) /hpf Urine Bacteria (Auto) None Seen (None Seen) SARS-CoV-2, RNA, NAAT NEGATIVE (NEGATIVE) Administered Medications Discontinued Medications Vancomycin HCl 1,250 mg/ (Sodium Chloride) 275 mls @ 200 mls/hr IV NOW ONE Stop: 08/05/23 14:37 Last Infusion: 08/05/23 16:15 Dose: Infused Documented By: Admin: 08/05/23 14:52 Dose: 200 mls/hr Documented By: JOÃOK Piperacillin Sod/Tazobactam Sod (Zosyn) 4.5 gm in 100 mls @ 200 mls/hr IV NOW ONE Stop: 08/05/23 13:44 Last Infusion: 08/05/23 14:52 Dose: Infused Documented By: Admin: 08/05/23 14:16 Dose: 200 mls/hr Documented By: TNK Morphine Sulfate (Morphine Sulfate 4 Mg/Ml 1 Ml Carp\\Vial) 4 mg IV NOW STA Stop: 08/05/23 12:48 Last Admin: 08/05/23 12:57 Dose: 4 mg Documented By: NDW Imaging Data Radiologist's Impression: Foot X-Ray 08/05/23 12:46 XR foot LT 2V CLINICAL HISTORY: L foot infection COMPARISON STUDY: Left foot 07/12/2023. FINDINGS: Interval resection of the left first toe at the mid shaft of the first metatarsal. Prior amputation at the PIP joint of the left second toe. Irregularity at the head of the left second toe proximal phalanx remain stable and is likely chronic. Focal skin ulceration/wound at the first toe resection site measuring 6 cm. This demonstrates an overlying bandage. There is a small plantar heel spur. Soft tissue swelling within the left foot. No acute fracture or dislocation. Subchondral lucency within the residual first metatarsal and medial cuneiform bone which demonstrate a demineralized appearance. This could be due to osteopenia. No definite cortical destruction at this time to suggest an osteomyelitis. IMPRESSION: 1. Interval resection of the left first toe at the mid shaft of the first metatarsal. 2. Subchondral lucency within the residual first metatarsal and medial cuneiform bone which demonstrate a demineralized appearance. This could be due to osteopenia. No definite cortical destruction at this time to suggest an osteomyelitis. However, one to 2 week radiograph follow-up recommended to ensure stability. The Lisfranc joint appears intact. 3. Prior amputation of the PIP joint of the left second toe. 4. Diffuse soft tissue swelling. 5. No acute fractures. ACT 112: Negative or not required by law. Electronically signed by: Vaibhav Adams M.D. 08/05/2023 1:34 PM Discharge Plan Visit Data Chief Complaint: Infection, Wound ED Provider: Robb Singh Discharge Problem: Diabetic infection of left foot, Anemia, Cellulitis in diabetic foot Patient Disposition: Admitted As Inpatient Discharge Instructions Interventions: ED Discharge Assessment Last Done: 08/05/23 17:46 Discharge Problem: Anemia Qualifiers: Anemia type: unspecified type Qualified Code(s): D64.9 - Anemia, unspecified
[2023-08-05 12:20] LABS: Appearance Urine Clear (Clear); Bacteria Urine Automated None Seen (None Seen); Bilirubin Urine Negative (Negative); Blood Urine Negative (Negative); Cast Urine Automated 0-2 /lpf (0-2); Color Urine Yellow; Epithelial Cell Urine Auto 0-2 /hpf (0-2); Glucose Urine UA 3+ (Negative); Ketones Urine Negative (Negative); Leukocyte Esterase Urine Negative (Negative); Nitrite Urine Negative (Negative); Protein Urine Trace (Negative); RBC Urine Automated 0-2 /hpf (0-2); Specific Gravity Urine 1.018 (1.000-1.030); Urobilinogen Urine Negative (Negative); WBC Urine Automated 0-5 /hpf (0-5); pH Urine 5.5 (4.5-7.5)
[2023-08-05 12:26] LABS: Basophils # (auto) 0.05 K/uL (0.00-0.20); Basophils % (auto) 0.4 %; Eosinophils # (auto) 0.17 K/uL (0.00-0.50); Eosinophils % (auto) 1.4 %; Immature Granulocytes # (auto) 0.12 K/uL (0.01-0.20); Lymphocytes # (auto) 0.91 K/uL (1.20-3.40); Lymphocytes % (auto) 7.7 %; Mean Corpuscular Hemoglobin 25.9 pg (25.0-34.0); Mean Corpuscular Hgb Conc 30.8 g/dL (32.0-36.0); Mean Corpuscular Volume 84.1 fL (80.0-100.0); Mean Platelet Volume 9.8 fL (9.4-12.4); Monocytes # (auto) 0.85 K/uL (0.11-0.59); Monocytes % (auto) 7.2 %; Neutrophils # (auto) 9.78 K/uL (1.40-6.50); Neutrophils % (auto) 82.3 %; Platelet Count 390 K/uL (130-400); RDW Coefficient of Variation 16.5 % (11.5-14.5); RDW Standard Deviation 50.2 fL (36.4-46.3); Red Blood Count 3.09 M/uL (4.70-6.10); White Blood Count 11.88 K/ul (4.8-10.8)
[2023-08-05 12:35] LABS: Alanine Aminotransferase 15 U/L (7-52); Albumin Globulin Ratio 0.4 (0.9-2); Albumin Level 2.2 gm/dl (3.4-5.0); Alkaline Phosphatase 95 U/L (34-104); Anion Gap 5 (3-11); Aspartate Aminotransferase 19 U/L (13-39); BUN Creatinine Ratio 13.2 (10-20); Bilirubin,Total 0.4 mg/dl (0.2-1.0); Blood Urea Nitrogen 17 mg/dl (6-23); Calcium 7.7 mg/dl (8.6-10.3); Carbon Dioxide 27 mmol/L (21-32); Chloride 101 mmol/L (98-107); Est GFR (African American) 64.2 ml/min; Est GFR (Non-African American) 55.4 ml/min; Glucose 101 mg/dl (70-99(Fasting)); Potassium 3.8 mmol/L (3.5-5.1); Sodium 133 mmol/L (136-145); Total Protein 7.2 gm/dl (6.0-8.3)
[2023-08-05 12:40] LABS: Troponin I High Sensitivity 19.5 pg/ml (0-20)
[2023-08-05 12:43] LABS: INR 1.2 (0.9-1.1); Prothrombin Time 12.6 Seconds (9.0-12.0)
[2023-08-05] MEDS: MoRPHine SULFATE 4 MG/ML 1 ML CARP\\VIAL IV STA (12:57)
[2023-08-05] MEDS ORDERED: Patient's HEIGHT &/or WEIGHT Needed SCH (13:15)
--- NOTE | 2023-08-05 13:35 | XRay Report ---
XR foot LT 2V CLINICAL HISTORY: L foot infection COMPARISON STUDY: Left foot 07/12/2023. FINDINGS: Interval resection of the left first toe at the mid shaft of the first metatarsal. Prior am putation at the PIP joint of the left second toe. Irregularity at the head of the left second toe pro ximal phalanx remain stable and is likely chronic. Focal skin ulceration/wound at the first toe resec tion site measuring 6 cm. This demonstrates an overlying bandage. There is a small plantar heel spur. Soft tissue swelling within the left foot. No acute fracture or dislocation. Subchondral lucency wit hin the residual first metatarsal and medial cuneiform bone which demonstrate a demineralized appeara nce. This could be due to osteopenia. No definite cortical destruction at this time to suggest an ost eomyelitis. IMPRESSION: 1. Interval resection of the left first toe at the mid shaft of the first metatarsal. 2. Subchondral lucency within the residual first metatarsal and medial cuneiform bone which demonstra te a demineralized appearance. This could be due to osteopenia. No definite cortical destruction at t his time to suggest an osteomyelitis. However, one to 2 week radiograph follow-up recommended to ensu re stability. The Lisfranc joint appears intact. 3. Prior amputation of the PIP joint of the left second toe. 4. Diffuse soft tissue swelling. 5. No acute fractures. ACT 112: Negative or not required by law. Electronically signed by: Vaibhav Adams M.D. 08/05/2023 1:34 PM
[2023-08-05] MEDS: PIPERACILLIN/TAZOBACTAM 4.5 GM/100 ML BAG IV ONE (14:16)
[2023-08-05] MEDS: VANCOMYCIN HCL 1,250 MG in SODIUM CHLORIDE 0.9% 250 ML IV ONE (14:52)
--- NOTE | 2023-08-05 16:12 | History & Physical Report ---
Date of Service August 05, 2023 Assessment & Plan (1) Diabetic infection of left foot: Plan: Left diabetic foot infection, with recent history of revision and bacteremia - Previously on dapto/ceftaroline. Was on vancomycin as outpatient for endocarditis coverage -See photo in H&P. Wound is with purulence and foul smelling drainage Will continue vancomycin, patient received Zosyn x 1 on admission Continued on cefepime/Flagyl/vancomycin pending culture results on admission. Culture was sent at time of admission Foot x-ray shows suspected osteopenia, no definite cortical destruction to suggest osteomyelitis. 1 to 2-week radiograph for stability is recommended. Presumed endocarditis Suspected to have primary foot wound with progression of bacteremia with subsequent endocarditis. Septic emboli were noted in the lung - Vanco as noted - BC repeat pending DM 2 Continue glargine 20 units a.m. and SSI Jardiance continued Glu 6 ACHS, copiously [id number] (2) Heart failure with ejection fraction improved from reduced range to preserved range: Plan: Heart failure with reduced but subsequently improved EF Continue home meds No chest pain/chest pressure ESCORT BLIND Troponin not elevated No acute on chronic CHF (3) Anxiety: (4) Atrial fibrillation: Plan: History of A-fib Eliquis continued. Amiodarone continued. Carvedilol continued. (5) MRSA bacteremia: Plan: - cellulitis and endocarditis coverage as noted Plan Chronic stable issues: Hyponatremia. Chronic, mild. Trend daily. Continue sodium tablets. Anxiety: Continue home meds History of Present Illness Primary Care Provider: Elmer Fraire MD 72-year-old male with a past medical history of type II DM, diabetic foot wound, A-fib, heart failure with reduced ejection fraction subsequently improved, SVT who was referred from wound care clinic for concern of a nonhealing surgical wound with abscess and malodorous/purulent drainage. This is completed at wound care, and patient has additional sacral and buttock wounds. Patient was recently discharged 6 days ago after an admission for a diabetic foot infection requiring treatment and toe amputation, and complicated by MRSA bacteremia. TTE did not show vegetation however patient was treated for presumed endocarditis given blood culture results and was to complete 6 weeks of Dapto therapy. Wound VAC removed in clinic. Malodorous discharge. Cody seen the bedside. He reports that he was told his left leg has had drainage and infection was for to the ER. He reports he has had increased pain in the foot for several days. Does not think it has been any more red than usual. Denies other symptoms he denies fever, chills, sweats, chest pain, chest pressure, lightheadedness, dizziness, syncope, presyncope. Reports he has been getting vancomycin as outpatient as directed. No other questions or concerns. Is concerned about having the wound redressed and whether antibiotics alone will be enough to manage the infection. Noted that x-ray did not show evidence of bony involvement, but that an x-ray does not have definitive sensitivity and this cannot be completely excluded at this time. No other questions at bedside Medical History: Reviewed Medications: Reviewed Surgical History: Reviewed Family history: Reviewed Allergies: Reviewed Social History: Reviewed Code Status: FUll Allergies Allergy/AdvReac Type Severity Reaction Status Date / Time cat dander Allergy Intermediate CONGESTION Verified 08/05/23 16:21 Home Medications Medication Instructions Recorded Confirmed Type Heparin Porcine Lock Flush 5 ml IV .Q SHIFT 08/05/23 08/05/23 History Protien Liquid 30 ml PO BID 08/05/23 08/05/23 History Vancomycin Iv Solution 1.25 g IV DAILY 08/05/23 08/05/23 History acetaminophen 650 mg 650 mg PO QID 08/05/23 08/05/23 History tablet,extended release amiodarone 200 mg tablet 200 mg PO DAILY 08/05/23 08/05/23 History amlodipine 2.5 mg tablet 2.5 mg PO HS 08/05/23 08/05/23 History apixaban 5 mg tablet (Eliquis) 5 mg PO BID 08/05/23 08/05/23 History atorvastatin 80 mg tablet (Lipitor) 80 mg PO HS 08/05/23 08/05/23 History carvedilol 3.125 mg tablet 3.125 mg PO BID 08/05/23 08/05/23 History clopidogrel 75 mg tablet 75 mg PO QAM 08/05/23 08/05/23 History empagliflozin 25 mg tablet 25 mg PO DAILY 08/05/23 08/05/23 History (Jardiance) ferrous sulfate 325 mg (65 mg 325 mg PO 3XWK 08/05/23 08/05/23 History iron) tablet furosemide 20 mg tablet 20 mg PO DAILY 08/05/23 08/05/23 History gabapentin 300 mg capsule 300 mg PO BID 08/05/23 08/05/23 History insulin glargine 100 unit/mL 25 unit subcut DAILY 08/05/23 08/05/23 History subcutaneous solution (Lantus U-100 Insulin) insulin lispro 100 unit/mL 1 sliding scale dose subcut 08/05/23 08/05/23 History subcutaneous cartridge (Humalog USEASDIRECTD U-100 Insulin) metformin 1,000 mg tablet 1,000 mg PO BID 08/05/23 08/05/23 History morphine 15 mg tablet,extended 15 mg PO Q12 08/05/23 08/05/23 History release oxycodone 5 mg tablet 5 mg PO Q4 PRN Pain 08/05/23 08/05/23 History pantoprazole 40 mg tablet,delayed 40 mg PO DAILY 08/05/23 08/05/23 History release (Protonix) sertraline 25 mg tablet 73 mg PO DAILY 08/05/23 08/05/23 History sodium chloride 1,000 mg soluble 1,000 mg PO AMHS 08/05/23 08/05/23 History tablet Past Med/Surg History Problem List (Updated 08/05/23 @ 17:09 by Ash Horne MD) Diabetic infection of left foot Wound infection Surgical wound, non healing Liver mass MRSA bacteremia Hyponatremia Supraventricular tachycardia Atrial fibrillation Multifocal pneumonia (Acute) Sepsis (Acute) Peripheral arterial disease with history of revascularization Ulcer of toe Diabetic foot ulcer Acute kidney injury superimposed on CKD 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 Heart failure with ejection fraction improved from reduced range to preserved range Anxiety (Acute) Anemia (Acute) hx GIB (gastrointestinal bleeding) (Acute) Chest pain (Acute) DVT prophylaxis Arterial occlusion, lower extremity (Acute) Medical History History of atrial fibrillation CAD (coronary artery disease) s/p CABG x 2 vessel June 2021 Acute HFrEF (heart failure with reduced ejection fraction) Follows with [facility] EF 50-55% per 05/2022 ECHO Cardiomyopathy Dyslipidemia Tobacco abuse smoke-12/day DM (diabetes mellitus) Atherosclerosis of artery of left lower extremity s/p left leg angiogram procedure with ESCORT BLIND of proximal vein bypass 05/27/23 s/p left leg femoral artery to posterior tibial artery reverse saphenous vein bypass done at [facility] 02/2023 s/p left SFA and popliteal stents History of anemia History of anxiety History of alcohol abuse started 1965, quit 1999 Hx of drug abuse started 1965, quit 1999 "used every drug known to man">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, stayed in for 13 years IV drug abuse hx-quit in 1981 History of hepatitis B hx IV drug use Hepatitis C virus has had since the late >no tx, "never had any trouble with it" Heart failure with mid-range ejection fraction Follows with [facility] EF 50-55% per 05/2022 ECHO Type 2 diabetes mellitus HTN (hypertension) Surgical History History of amputation of great toe S/P CABG x ~2021, went to ER w/"anxiety," found to be in congestive heart failure, had more cardiac testing, sent for f/u w/[facility] cardio surgeon, done @[facility]; f/u dr. mckeon Hx of cardiac catheterization 06/2021 [facility] History of open reduction and internal fixation (ORIF) procedure rt elbow and lt wrist>hardware intact Hx of colonoscopy History of left knee surgery 1988-tibial plateau reconstruction History of eye surgery retina History of cataract extraction rt/lt Social History Smoking Status: Current every day smoker Tobacco Type: Cigarettes Cigarettes Per Day: 12 per day >>advised; Second Hand Exposure: Yes (hx); Do You Dip or Chew Tobacco: No; Hx Alcohol Use: No Hx Substance Use: Yes Last Used Substance Other:: quit 1999-stated "used every drug known to man" Substance Use Type Other:: IV drugs Preferred Language: Thai Communication Ability: Effective Digital Photographic Printer Required: No Beliefs That Will Affect Care: None Current Living Situation Comment: [facility]hab until at least 08/18/23 current occupational status: disabled How many Children do You have: 1 Feels Safe at Home: Yes Assistive Devices: Glasses and Wheelchair Physical Exam 2 Physical Exam: General: A&Ox3. NAD. Cooperative. HEENT: Atraumatic, normocephalic. Pulm: CTAB A&P. -wheezes, -rales, -rhonchi. Symmetrical chest rise. No increased work of breathing. No respiratory distress. Cardiac: RRR, -mrg. Radial pulses intact and symmetrical. Abdominal: Nontender, nondistended, soft. BS present. Ext: See photo below Results & Data Results & Data Vital Signs (Past 12 Hours) Vital Signs Temp Pulse Pulse Resp BP BP Pulse Ox 08/05/23 15:45 82 08/05/23 14:15 77 18 156/75 H 93 08/05/23 11:33 78 18 135/64 08/05/23 11:24 79 08/05/23 11:09 36.7 C 78 14 123/68 95 O2 Del Method 08/05/23 15:45 08/05/23 14:15 Room Air 08/05/23 11:33 08/05/23 11:24 08/05/23 11:09 Room Air PG Care Time/CCT Total # of Minutes Spent Total Time Spent with Patient: Total time spent is greater than 50% in coordination of care (as documented) at patient's floor/unit and/or counseling patient: Coding Level of Care Code 58484 INT INP/OBS CARE 3/75MIN Diagnoses Diabetic infection of left foot E11.628; L08.9 Heart failure with ejection fraction improved from reduced range to preserved range I50.32 Anxiety F41.9 Atrial fibrillation I48.91 MRSA bacteremia R78.81; B95.62
[2023-08-05] MEDS ORDERED: GLUCAGON FOR INJ 1 MG VIAL SQ PRN (17:06)
[2023-08-05] MEDS ORDERED: GLUCOSE 10 TAB/TUBE PO PRN (17:06)
[2023-08-05] MEDS ORDERED: GLUCOSE 40% GEL 15 GM TUBE PO PRN (17:06)
[2023-08-05] MEDS ORDERED: DEXTROSE 50% 50 ML SYRINGE IV PRN (17:06)
[2023-08-05] MEDS ORDERED: CARBOHYDRATES FOR HYPOGLYCEMIA PO PRN (17:06)
[2023-08-05] MEDS ORDERED: VANCOMYCIN HCL 1,500 MG in SODIUM CHLORIDE 0.9% 500 ML IV SCH (19:14)
[2023-08-05] MEDS ORDERED: VANCOMYCIN CONSULT ACTIVE PRN (19:14)
[2023-08-05] MEDS: MoRPHine SULFATE CR 15 MG TABCR PO SCH (20:26)
[2023-08-05] MEDS: amLODIPine BESYLATE 5 MG TAB PO SCH (20:27)
[2023-08-05] MEDS: ATORVASTATIN 40 MG TAB PO SCH (20:28)
[2023-08-05] MEDS: APIXABAN 5 MG TABLET PO SCH (20:28)
[2023-08-05] MEDS: carvediloL 3.125 MG TAB PO SCH (20:28)
[2023-08-05] MEDS: SODIUM CHLORIDE 1 GM TABLET PO SCH (20:29)
[2023-08-05] MEDS: GABAPENTIN 300 MG CAP PO SCH (20:29)
--- NOTE | 2023-08-05 20:36 | Pharmacy Report ---
Pharmacy PK ABX Note - Date of Service August 05, 2023 - Assessment and Plan Assessment * 72 year old M receiving cefepime, metronidazole, and vancomycin for treatment of ?bacteremia, ?endocarditis, and diabetic foot infection. * Pertinent microbiologic data includes: recent MRSA bacteremia (07/11 x2 and 07/18 x1) * SCr at/near baseline Plan Vancomycin * Loading dose: 1250 mg IV x 1 * Resume prior dose of 1250 mg IV every 24 hours * Regimen is predicted to achieve target AUC/MISA of 400-600 mg/L.hr based on previous admission data * Random level ordered for: 6/9 AM Pharmacy will continue to follow and will adjust dose/frequency as necessary. Thank you. Pharmacy has transitioned to AUC monitoring for vancomycin. AUC/MISA is the preferred PK/PD target and is associated with decreased risk of nephrotoxicity compared to traditional trough targets.
[2023-08-05] MEDS: CEFEPIME 2,000 MG in SYRINGE 0 ML IV SCH (21:39)
[2023-08-05] MEDS: metroNIDAZOLE 500 MG/100 ML BAG IV SCH (21:40)
[2023-08-05] MEDS: INSULIN ASPART PER UNIT CHARGE SC SCH (21:51)
[2023-08-05 22:56] LABS: C Reactive Protein 10.47 mg/dl (0-0.5)
[2023-08-06] MEDS: oxyCODONE HCL IR 5 MG TAB (IMMEDIATE RELEASE) PO PRN
[2023-08-06] MEDS: LANTUS PER UNIT CHARGE SQ SCH (08:53)
[2023-08-06] MEDS: ACETAMINOPHEN 325 MG TAB PO PRN (08:54)
[2023-08-06] MEDS: AMIODARONE 200 MG TAB PO SCH (08:55)
[2023-08-06] MEDS: FUROSEMIDE 20 MG TAB PO SCH (08:56)
[2023-08-06] MEDS: PANTOprazole 40 MG TAB PO SCH (08:56)
[2023-08-06] MEDS: CLOPIDOGREL BISULFATE 75 MG TAB PO SCH (08:56)
[2023-08-06] MEDS: SERTRALINE HCL 50 MG TABLET PO SCH (08:57)
[2023-08-06] MEDS: VANCOMYCIN HCL 1,250 MG in SODIUM CHLORIDE 0.9% 250 ML IV SCH (09:06)
[2023-08-06 09:19] LABS: Basophils # (auto) 0.05 K/uL (0.00-0.20); Basophils % (auto) 0.5 %; Eosinophils # (auto) 0.14 K/uL (0.00-0.50); Eosinophils % (auto) 1.4 %; Hematocrit (blood only) 24.9 % (42.0-52.0); Hemoglobin 7.8 g/dl (14.0-18.0); Immature Granulocytes # (auto) 0.08 K/uL (0.01-0.20); Immature Granulocytes % (auto) 0.8 %; Lymphocytes # (auto) 0.87 K/uL (1.20-3.40); Lymphocytes % (auto) 8.6 %; Mean Corpuscular Hemoglobin 25.9 pg (25.0-34.0); Mean Corpuscular Hgb Conc 31.3 g/dL (32.0-36.0); Mean Corpuscular Volume 82.7 fL (80.0-100.0); Mean Platelet Volume 9.8 fL (9.4-12.4); Monocytes # (auto) 0.74 K/uL (0.11-0.59); Monocytes % (auto) 7.3 %; Neutrophils # (auto) 8.25 K/uL (1.40-6.50); Neutrophils % (auto) 81.4 %; Platelet Count 365 K/uL (130-400); RDW Coefficient of Variation 16.4 % (11.5-14.5); RDW Standard Deviation 49.3 fL (36.4-46.3); Red Blood Count 3.01 M/uL (4.70-6.10); White Blood Count 10.13 K/ul (4.8-10.8)
[2023-08-06 09:28] LABS: BUN Creatinine Ratio 13.4 (10-20); C Reactive Protein 11.25 mg/dl (0-0.5); Calcium 7.6 mg/dl (8.6-10.3); Creatinine Clr Calc Pharmacy 62.5 ml/min; Est GFR (African American) 70.8 ml/min; Est GFR (Non-African American) 61.1 ml/min; Potassium 3.7 mmol/L (3.5-5.1)
[2023-08-06 10:33] LABS: Polychromasia 1+
--- NOTE | 2023-08-06 13:06 | Hospitalist Progress Note ---
Date of Service August 06, 2023 Assessment & Plan (1) Diabetic infection of left foot: Plan: Patient with recent history of left foot revision and bacteremia. Presented from wound care clinic for concern of nonhealing surgical wound with abscess and malodorous/purulent drainage. -Previously on daptomycin/ceftaroline. Was on vancomycin as outpatient for endocarditis coverage. -REGINE from 07/27/2023 showed no valvular vegetations or significant valvular dysfunction. EF = 55-60%. -Foot x-ray on admission shows suspected osteopenia, no definite cortical destruction to suggest osteomyelitis. 1 to 2-week radiograph for stability is recommended. -- Concern for osteomyelitis. Consider more detailed imaging upon vascular surgery consult. -Continued on cefepime/Flagyl/vancomycin pending culture results on admission. Culture was sent at time of admission. -Preliminary left foot wound culture growing Staphylococcus species. -Dry sterile dressing to left foot, change Q daily or when soiled. -Patient will most likely require further surgical revision. I spoke with Dr. Ambriz 08/06/23, unfortunately he is not available this weekend and can't see the patient until 08/08/23. Will place vascular surgery consult 08/06. -Wound care consulted for pressure wound with erythema on sacrum. Presumed endocarditis -Suspected to have primary foot wound with progression of bacteremia with subsequent endocarditis. Septic emboli were noted in the lung on last admission. 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 Amiodarone continued. Carvedilol continued. (4) DM (diabetes mellitus): Plan: Continue glargine 20 units a.m. and SSI Jardiance continued Glucose ACHS, goal [id number] Plan Discussed case with vascular surgery Consulted wound care Ordered wound dressings Chronic stable issues: Hyponatremia. Chronic, mild. Trend daily. Continue sodium tablets. Anxiety: Continue home meds CODE STATUS: Full code VTE PPx: 5 mg BID Admission and Anticipated Discharge Date Admission Date: August 05, 2023 Subjective Paitent seen and evaluated at bedside. He is very frustrated about being back in the hospital with another problem related to his left foot. He rates the pain 5/10 currently. He also reported some buttock pain. Myself and his RN evaluated the area and noted small open wound with surrounding erythema. Pressure dressing applied to sacrum. I discussed the plan moving forward with the patient, including his current antibiotic regimen as well as probable need for surgical intervention. He continued to report frustration, but was agre eable. He denied chest pain, palpitations, SOB, difficulty breathing, abdominal pain, diarrhea, or urinary symptoms. No other complaints at this time. Physical Exam Physical Exam: General: No acute distress, nondiaphoretic, well-developed, well-nourished. Skin: Left foot open wound approximately 6 cm with copious purulent drainage. Small pressure wound with surrounding erythema on sacrum. Cardiac: Regular rate and rhythm without murmurs gallops or rubs. Pulm: Clear to auscultation bilaterally without wheezes, rales or rhonchi. No respiratory distress. Abdominal: Nontender, nondistended, soft. BS present. Neuro: A&O x3. No focal neurological deficits. Results & Data Results & Data Vital Signs (Past 12 Hours) Vital Signs Temp Pulse Resp BP Pulse Ox O2 Del Method 08/06/23 07:18 36.7 C 87 17 145/71 H 95 Room Air Laboratory Results Reviewed CBC Reviewed chemistries PG Care Time/CCT Total # of Minutes Spent Total Time Spent with Patient: Total time spent is greater than 50% in coordination of care (as documented) at patient's floor/unit and/or counseling patient: Coding Level of Care Code 83121 SUB INP/OBS CARE 3/50MIN Diagnoses Diabetic infection of left foot E11.628; L08.9 Heart failure with ejection fraction improved from reduced range to preserved range I50.32 Atrial fibrillation I48.91 DM (diabetes mellitus) E11.9
[2023-08-06] MEDS: ACETAMINOPHEN 325 MG TAB PO SCH (16:35)
[2023-08-07 05:41] LABS: Basophils # (auto) 0.06 K/uL (0.00-0.20); Basophils % (auto) 0.8 %; Eosinophils # (auto) 0.24 K/uL (0.00-0.50); Hematocrit (blood only) 25.3 % (42.0-52.0); Hemoglobin 7.8 g/dl (14.0-18.0); Immature Granulocytes # (auto) 0.07 K/uL (0.01-0.20); Immature Granulocytes % (auto) 0.9 %; Lymphocytes # (auto) 0.94 K/uL (1.20-3.40); Lymphocytes % (auto) 11.9 %; Mean Corpuscular Hemoglobin 25.7 pg (25.0-34.0); Mean Corpuscular Hgb Conc 30.8 g/dL (32.0-36.0); Mean Corpuscular Volume 83.5 fL (80.0-100.0); Mean Platelet Volume 9.6 fL (9.4-12.4); Monocytes # (auto) 0.63 K/uL (0.11-0.59); Neutrophils # (auto) 5.96 K/uL (1.40-6.50); Neutrophils % (auto) 75.4 %; Platelet Count 350 K/uL (130-400); RDW Coefficient of Variation 16.4 % (11.5-14.5); RDW Standard Deviation 49.3 fL (36.4-46.3); Red Blood Count 3.03 M/uL (4.70-6.10)
[2023-08-07 05:55] LABS: BUN Creatinine Ratio 13.6 (10-20); Calcium 7.6 mg/dl (8.6-10.3); Creatinine Clr Calc Pharmacy 59.5 ml/min; Est GFR (African American) 66.7 ml/min; Est GFR (Non-African American) 57.6 ml/min; Potassium 3.4 mmol/L (3.5-5.1)
[2023-08-07 06:14] LABS: Hypochromasia Present; Polychromasia 1+
--- NOTE | 2023-08-07 07:55 | Hospitalist Progress Note ---
Date of Service August 07, 2023 Assessment & Plan (1) Diabetic infection of left foot: Plan: Patient with recent history of left foot revision and bacteremia. Presented from wound care clinic for concern of nonhealing surgical wound with abscess/osteomyelitis with malodorous/purulent drainage. Patient with pending MRI to dilate for osteomyelitis and metatarsal Dr. Ambriz surgical consultation for consideration of surgical revision patient is on Eliquis this was held beginning the evening of 08/06 -Previously on daptomycin/ceftaroline. Was on vancomycin as outpatient for endocarditis coverage. -REGINE from 07/27/2023 showed no valvular vegetations or significant valvular dysfunction. EF = 55-60%. surgery consult.-Continued on cefepime/Flagyl/vancomycin pending culture results on admission. -Preliminary left foot wound culture growing MRSA -Preliminary blood cultures negative at this time -Wound care consulted for pressure wound with erythema on sacrum. Presumed endocarditis as septic emboli seen during last admission continues on vancomycin, ID consult (2) Heart failure with ejection fraction improved from reduced range to preserved range: Plan: Heart failure with reduced but subsequently improved EF amlodipine, coreg plavix lasix jardiance Replete electrolytes (3) Atrial fibrillation: Plan: rate controlled Eliquis on hold 08/07/2023 resume postoperatively. Amiodarone continued. Carvedilol continued. (4) DM (diabetes mellitus): Plan: Continue glargine 20 units a.m. and SSI Jardiance continued Glucose ACHS, goal [id number] Plan Discussed case with vascular surgery vascular surgery consult placed in the afternoon of [phone] Consulted wound care Ordered wound dressings Chronic stable issues: Hyponatremia. Chronic, mild. Trend daily. Continue sodium tablets. Anxiety: Continue home meds CODE STATUS: Full code VTE PPx: Currently on hold Admission and Anticipated Discharge Date Admission Date: August 05, 2023 Subjective Patient endorses frustration with his third visit for his foot. Says he just wants get things over with. He has had progression since his last amputation with dehiscence of wound with some concern on imaging that there may be bone involvement versus osteo pending additional imaging study of foot to define osteomyelitis which may change surgical margins Physical Exam Physical Exam: Pleasant gentleman in no apparent distress cardiac exam is distant regular lungs are clear without wheezes or crackles foot is bandaged in place at this time Results & Data Results & Data Vital Signs (Past 12 Hours) Vital Signs Temp Pulse Resp BP Pulse Ox O2 Del Method 08/07/23 07:29 97.9 F 72 17 162/73 H 95 Room Air 08/06/23 21:37 97.9 F 74 14 145/70 H 95 Room Air Laboratory Results Reviewed CBC reviewed chemistry Ordered repletion of potassium PG Care Time/CCT Total # of Minutes Spent Total Time Spent with Patient: Total time spent is greater than 50% in coordination of care (as documented) at patient's floor/unit and/or counseling patient: Coding Level of Care Code 31983 SUB INP/OBS CARE 3/50MIN Diagnoses Diabetic infection of left foot E11.628; L08.9 Heart failure with ejection fraction improved from reduced range to preserved range I50.32 Atrial fibrillation I48.91 DM (diabetes mellitus) E11.9
[2023-08-07] MEDS: VANCOMYCIN LEVEL ONE (10:34)
[2023-08-07] MEDS: MoRPHine SULFATE 2 MG/ML CARP IV PRN (12:55)
[2023-08-07] MEDS: ACETAMINOPHEN 500 MG TAB PO SCH (14:48)
--- NOTE | 2023-08-07 16:21 | Pharmacy Report ---
Pharmacy PK ABX Note - Date of Service August 07, 2023 - Assessment and Plan Assessment 08/06 * Random vanco level = 17.2 mcg/mL (this was drawn ~5 hours prior to next dose). Predicted AUC is slightly above 600, therefore close monitoring warranted. 08/04 * 72 year old M receiving cefepime, metronidazole, and vancomycin for treatment of ?bacteremia, ?endocarditis, and diabetic foot infection. * Pertinent microbiologic data includes: recent MRSA bacteremia (07/11 x2 and 07/18 x1) * SCr at/near baseline Plan Vancomycin * Continue 1250 mg IV q24h * This is predicted to achieve target AUC/MISA near 600 mg/L.hr * Repeat level in 48 hours to assess for drug accumulation Pharmacy will continue to follow and will adjust dose/frequency as necessary. Thank you. Pharmacy has transitioned to AUC monitoring for vancomycin. AUC/MISA is the preferred PK/PD target and is associated with decreased risk of nephrotoxicity compared to traditional trough targets.
[2023-08-07] MEDS: oxyCODONE HCL IR 5 MG TAB (IMMEDIATE RELEASE) PO PRN (17:59)
--- NOTE | 2023-08-07 18:33 | Magnetic Resonance Report ---
MRI OF THE LEFT FOREFOOT WITHOUT IV CONTRAST CLINICAL HISTORY: Osteomyelitis. COMPARISON STUDY: Radiographs of the left foot dated 08/05/2023 and 07/12/2023. TECHNIQUE: MRI of the left forefoot was performed utilizing various T1 and T2-weighted sequences in t he axial, sagittal, and coronal planes. IV contrast was not administered for this examination. FINDINGS: There is amputation of the first toe through the proximal to mid shaft of the metatarsal. T here is marked marrow edema within the base of the first metatarsal with corresponding drop in T1-sim ghted signal, that is highly suspicious for osteomyelitis. There is significant marrow edema also see n within the medial cuneiform. A serpiginous T1 hyperintensity within the bone distally on sagittal i mage #13 may represent a nondisplaced fracture. There is also an amputation of the second toe through the proximal interphalangeal joint. There is marrow edema within the distal shaft of the second prox imal phalanx with mild erosive change. Osteomyelitis is not excluded. There is also marrow edema seen within the third and fourth distal phalanges on sagittal images #23 and #26. There is corresponding drop in T1 signal. Osteomyelitis is not excluded. Diffuse soft tissue edema is seen throughout the fo refoot, greatest distal to the first metatarsal stump where there is phlegmonous change and possible foci of soft tissue gas. There is a serpiginous pocket of fluid along the plantar aspect of the first carpometacarpal joint, seen on sagittal images #12-16. This measures approximately 4 x 1.0 x 2.5 cm. There is likely a wound at this site. Imaged portions of the flexor and extensor tendons appear inta ct. Degenerative change is seen at the medial subtalar joint. Imaged portions of the plantar fascia a ppear intact. IMPRESSION: 1. There is postsurgical change from amputation of the first and second toes as above. 2. Findings are highly suspicious for osteomyelitis involving the base of the first metatarsal. 3. There is significant marrow edema within the medial cuneiform with a possible nondisplaced fractur e. Osteomyelitis of this bone is not excluded. 4. There is marrow edema and mild erosive change at the resection margin in the head of the second pr oximal phalanx. Osteomyelitis of this bone is not excluded. 5. There is marrow edema with drop in T1 signal within the third and fourth distal phalanges. Osteomy elitis is not excluded. 6. Diffuse soft tissue edema throughout the foot suggests cellulitis. 7. There is phlegmonous change, soft tissue gas, and a wound suggested in the medial soft tissues dis curt to the first metatarsal stump. 8. There is a serpiginous fluid collection along the plantar aspect of the first tarsometatarsal join t as above. This is suspicious for abscess. Correlate clinically. Dictated: 08/07/2023 4:55 PM Transcribed: 08/07/2023 5:16 PM Aung [id number] [email or web address] Electronically signed by: Amarjit Holt M.D. 08/07/2023 6:31 PM
[2023-08-07] MEDS: MoRPHine SULFATE 4 MG/ML 1 ML CARP\\VIAL IV PRN (19:59)
[2023-08-07] MEDS: POTASSIUM CHLORIDE CRTAB 20 MEQ TABCR PO SCH (21:18)
[2023-08-08 06:41] LABS: Basophils # (auto) 0.04 K/uL (0.00-0.20); Basophils % (auto) 0.5 %; Eosinophils # (auto) 0.28 K/uL (0.00-0.50); Eosinophils % (auto) 3.3 %; Hematocrit (blood only) 24.8 % (42.0-52.0); Hemoglobin 7.6 g/dl (14.0-18.0); Immature Granulocytes # (auto) 0.09 K/uL (0.01-0.20); Immature Granulocytes % (auto) 1.1 %; Lymphocytes # (auto) 0.99 K/uL (1.20-3.40); Lymphocytes % (auto) 11.8 %; Mean Corpuscular Hemoglobin 25.6 pg (25.0-34.0); Mean Corpuscular Hgb Conc 30.6 g/dL (32.0-36.0); Mean Corpuscular Volume 83.5 fL (80.0-100.0); Mean Platelet Volume 9.7 fL (9.4-12.4); Monocytes % (auto) 7.2 %; Neutrophils # (auto) 6.37 K/uL (1.40-6.50); Neutrophils % (auto) 76.1 %; Platelet Count 345 K/uL (130-400); RDW Standard Deviation 48.6 fL (36.4-46.3); Red Blood Count 2.97 M/uL (4.70-6.10); White Blood Count 8.37 K/ul (4.8-10.8)
[2023-08-08 07:03] LABS: BUN Creatinine Ratio 11.4 (10-20); Calcium 7.6 mg/dl (8.6-10.3); Creatinine Clr Calc Pharmacy 49.9 ml/min; Est GFR (Non-African American) 46.6 ml/min; Magnesium 1.6 mg/dl (1.7-2.4); Potassium 3.6 mmol/L (3.5-5.1)
[2023-08-08 07:08] LABS: Polychromasia 1+
--- NOTE | 2023-08-08 08:48 | Consultation ---
Date of Consultation August 08, 2023 Assessment & Plan (1) Diabetic infection of left foot: Wound healing well. Has a patent graft There is a pocket in the lower part of the incision. Would continue dressing changes but would pack the pocket of the lower part of the incision so he doesn't get a collection of fluid. Thank you very much for letting us participate in the care of this patient. History of Present Illness Reason for Consultation: Open toe amputation site. Attending Physician: Anibal Tobin History of Present Illness This is a 72-year-old gentleman who recently had a first and second toe amputation of his left foot. It was left open due to purulent drainage and treated with a wound VAC. The wound center noticed pus and foul order coming from the wound at his last visit. He was therefore sent to the emergency department and admitted for treatment. He is on antibiotics being treated for supposedly pulmonary septic emboli and endocarditis possibly. Allergies Allergy/AdvReac Type Severity Reaction Status Date / Time cat dander Allergy Intermediate CONGESTION Verified 08/05/23 16:21 Home Medications Medication Instructions Recorded Confirmed Type Heparin Porcine Lock Flush 5 ml IV .Q SHIFT 08/05/23 08/05/23 History Protien Liquid 30 ml PO BID 08/05/23 08/05/23 History Vancomycin Iv Solution 1.25 g IV DAILY 08/05/23 08/05/23 History acetaminophen 650 mg 650 mg PO QID 08/05/23 08/05/23 History tablet,extended release amiodarone 200 mg tablet 200 mg PO DAILY 08/05/23 08/05/23 History amlodipine 2.5 mg tablet 2.5 mg PO HS 08/05/23 08/05/23 History apixaban 5 mg tablet (Eliquis) 5 mg PO BID 08/05/23 08/05/23 History atorvastatin 80 mg tablet (Lipitor) 80 mg PO HS 08/05/23 08/05/23 History carvedilol 3.125 mg tablet 3.125 mg PO BID 08/05/23 08/05/23 History clopidogrel 75 mg tablet 75 mg PO QAM 08/05/23 08/05/23 History empagliflozin 25 mg tablet 25 mg PO DAILY 08/05/23 08/05/23 History (Jardiance) ferrous sulfate 325 mg (65 mg 325 mg PO 3XWK 08/05/23 08/05/23 History iron) tablet furosemide 20 mg tablet 20 mg PO DAILY 08/05/23 08/05/23 History gabapentin 300 mg capsule 300 mg PO BID 08/05/23 08/05/23 History insulin glargine 100 unit/mL 25 unit subcut DAILY 08/05/23 08/05/23 History subcutaneous solution (Lantus U-100 Insulin) insulin lispro 100 unit/mL 1 sliding scale dose subcut 08/05/23 08/05/23 History subcutaneous cartridge (Humalog USEASDIRECTD U-100 Insulin) metformin 1,000 mg tablet 1,000 mg PO BID 08/05/23 08/05/23 History morphine 15 mg tablet,extended 15 mg PO Q12 08/05/23 08/05/23 History release oxycodone 5 mg tablet 5 mg PO Q4 PRN Pain 08/05/23 08/05/23 History pantoprazole 40 mg tablet,delayed 40 mg PO DAILY 08/05/23 08/05/23 History release (Protonix) sertraline 25 mg tablet 75 mg PO DAILY 08/05/23 08/05/23 History sodium chloride 1,000 mg soluble 1,000 mg PO AMHS 08/05/23 08/05/23 History tablet Patient History Medical History History of atrial fibrillation CAD (coronary artery disease) s/p CABG x 2 vessel June 2021 Acute HFrEF (heart failure with reduced ejection fraction) Follows with [facility] EF 50-55% per 05/2022 ECHO Cardiomyopathy Dyslipidemia Tobacco abuse smoke-12/day DM (diabetes mellitus) Atherosclerosis of artery of left lower extremity s/p left leg angiogram procedure with [employer] INST[employer]ER of proximal vein bypass 05/27/23 s/p left leg femoral artery to posterior tibial artery reverse saphenous vein bypass done at [facility] [place] 02/2023 s/p left SFA and popliteal stents History of anemia History of anxiety History of alcohol abuse started 1965, quit 1999 Hx of drug abuse started 1965, quit 1999 "used every drug known to man">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, stayed in for 13 years IV drug abuse hx-quit in 1981 History of hepatitis B hx IV drug use Hepatitis C virus has had since the late 1979's>no tx, "never had any trouble with it" Heart failure with mid-range ejection fraction Follows with [facility] EF 50-55% per 05/2022 ECHO Type 2 diabetes mellitus HTN (hypertension) Surgical History History of amputation of great toe S/P CABG x 2 ~2021, went to ER w/"anxiety," found to be in congestive heart failure, had more cardiac testing, sent for f/u w/s cardio surgeon, done [facility]; f/u dr. mckeon Hx of cardiac catheterization 06/2021 [facility] History of open reduction and internal fixation (ORIF) procedure rt elbow and lt wrist>hardware intact Hx of colonoscopy History of left knee surgery 1988-tibial plateau reconstruction History of eye surgery retina History of cataract extraction rt/lt Social History Smoking Status: Current every day smoker Tobacco Type: Cigarettes Cigarettes Per Day: 6; Second Hand Exposure: No; Do You Dip or Chew Tobacco: No; Tobacco Cessation Education Requested by Patient: No Hx Alcohol Use: No Hx Substance Use: Yes Last Used Substance: Unknown Last Used Substance Other:: quit 1999-stated "used every drug known to man" Substance Use Type Other:: IV Drugs. Preferred Language: Wallisian Communication Ability: Effective Consumer Lending Manager Required: No Beliefs That Will Affect Care: None Current Living Situation: Alone Current Living Situation Comment: [facility] until at least 08/18/23 current occupational status: disabled How many Children do You have: 1 Other Information That Helps Us Care for You: No Feels Safe at Home: Yes Safety Concerns: Feels Safe At This Time Assistive Devices: None Review of Systems Review of Systems: All systems reviewed & are unremarkable except as noted in HPI & below Physical Exam Constitutional: WD/WN, vitals as above Respiratory: normal respiratory effort; no respiratory distress Cardiovascular: Rate/Rhythm: regular rate and regular rhythm Extremities: normal capillary refill good pulse in graft Gastrointestinal (Abdomen): Inspection/Auscultation: abdomen normal to insp ection; abdomen not distended Skin: + wound (wound almost healed, pocket in lower part of incision, no drainage noted) Neurologic: CN's II-XI intact bilaterally and moves all extremities Psychiatric: Orientation: alert and oriented x 3 Results & Data Vital Signs (Past 12 Hours) Vital Signs Temp Pulse Pulse Resp BP Pulse Ox O2 Del Method 08/08/23 07:50 36.4 C L 68 18 164/76 H 94 Room Air 08/07/23 21:13 66 161/76 H
--- NOTE | 2023-08-08 15:11 | Infectious Disease Consult ---
Date of Consultation August 08, 2023 Assessment & Plan (1) Osteomyelitis of foot, left, acute: (2) Diabetic infection of left foot: (3) MRSA bacteremia: Plan 72yo M with h/o peripheral arterial disease s/p LLE femoral to anterior tibial artery reverse GSV bypass in 02/2023, recent left 2nd toe infection with other toe eschars s/p LLE 2nd to amputation and debridement of toes 1, 3, and 4 on 06/16/23, CHF, diabetes, CAD s/p CABG, afib, pulmonary HTN, CKD III, chronic HCV, anxiety, recent admission 07/11-07/31 with left great toe infection (s/p amputation 07/14) along with MRSA bacteremia and multiple cavitary nodular lesions on CT chest c/f necrotic PNA v septic emboli v malignancy (TTE/REGINE neg, no respiratory sx, planned 4wks of vancomycin 07/20-08/17 followed by surveillance BCx) who presented on 08/04 with nonhealing surgical wound with abscess and malodorous/purulent drainage. He was seen at wound clinic where wound vac was removed and noted to have malodorous discharge. He was subsequently sent to the ED. He also reported having increasing pain in his foot for several days, not more red. No fevers, chills. Has been getting outpatient vancomycin. Here, he was afebrile, vss. WBC 11.8. Cr 1.29. LFT wnl. CRP 10.47. UA neg. COVID neg. Left foot XR with subchondral lucency within residual first MT and medial cuneiform bone, diffuse soft tissue swelling. Left foot MRI with findings highly suspicious for OM involving base of the first MT; significant marrow edema within the medial cuneiform with possible nondisplaced fracture, OM of bone not excluded; marrow edema and mild erosive change at resection margin in head of the 2nd proximal phalanx, OM not excluded; marrow edema in 3rd and 4th distal phalanges, OM not excluded; diffuse soft tissue edema throughout the foot suggests cellulitis; phlegmonous change, soft tissue gas, and wound suggested in medial soft tissues distal to the first MT stump; serpiginous fluid collection along the plantar aspect of the first tarsometatarsal joint suspicious for abscess. He has been getting vancomycin, cefepime, and flagyl. ID consulted 08/07. Patient has findings of osteomyelitis on MRI. Would discuss with surgery regarding whether he would be a good candidate for surgical management. Will continue on broad empiric coverage. I do note that one of his wound cx has a vancomycin MISA of 2, which is not ideal. I did discuss this with pharmacy and broth microdilution test will be run on this culture to determine whether MISA is in fact 2 (which takes 1 day to result). In the meantime, while waiting to confirm if MRSA is adequately susceptible to vanc, daptomycin will be added x 48hrs for his OM (vanc is kept on to include lung coverage given recent c/f necrotizing PNA from last admission). # Left foot osteomyelitis of multiple sites WCX MRSA # Recent MRSA bacteremia (REGINE neg) # Recent multiple cavitary nodular lesions ddx including necrotic PNA v septic emboli v malignancy # Recent h/o left great toe infection s/p amputation on 07/14 # Diabetes # PAD - please discuss with surgery regarding management of osteomyelitis of left foot seen on MRI - added broth microdilution of wound cx to determine actual vancomycin MISA from 08/04 - added daptomycin empirically x 48h while waiting for MISA results - continue vancomycin to keep lung coverage since dapto doesnt penetrate lungs - continue cefepime and flagyl - I will see patient with telepresenter tomorrow ID will continue to follow. If questions or concerns, contact Infectious Disease Call Center . Krys Godinez MD [facility], Division of Infectious Diseases [facility]: [phone] Consultation Information This patient recommendation is based on a telemedicine consult request which was completed asynchronously through chart review and information provided by the primary physician. The patient was not seen or examined today. The evaluation is consultative in nature and all patient care and treatment decisions can either be accepted or rejected by the patient's primary hospital-based treating physician using their own independent medical judgment for their patient. [facility] contact information: Please call [facility] Call Center . (Phone Number For Physician Use Only) Time Spent Reviewing Chart: 31+ minutes History of Present Illness Reason for Consultation: bacteremia and diabetic foot infection Attending Physician: Anbial Tobin History of Present Illness 72yo M with h/o peripheral arterial disease s/p LLE femoral to anterior tibial artery reverse GSV bypass in 02/2023, recent left 2nd toe infection with other toe eschars s/p LLE 2nd to amputation and debridement of toes 1, 3, and 4 on 06/16/23, CHF, diabetes, CAD s/p CABG, afib, pulmonary HTN, CKD III, chronic HCV, anxiety, recent admission 07/11-07/31 with left great toe infection (s/p amputation 07/14) along with MRSA bacteremia and multiple cavitary nodular lesions on CT chest (TTE/REGINE neg, planned 4wks of vancomycin 07/20-08/17 followed by surveillance BCx) who presented on 08/04 with nonhealing surgical wound with abscess and malodorous/purulent drainage. He was seen at wound clinic where wound vac was removed and noted to have malodorous discharge. He was subsequently sent to the ED. He also reported having increasing pain in his foot for several days, not more red. No fevers, chills. Has been getting outpatient vancomycin. Here, he was afebrile, vss. WBC 11.8. Cr 1.29. LFT wnl. CRP 10.47. UA neg. COVID neg. Left foot XR with subchondral lucency within residual first MT and medial cuneiform bone, diffuse soft tissue swelling. Left foot MRI with findings highly suspicious for OM involving base of the first MT; significant marrow edema within the medial cuneiform with possible nondisplaced fracture, OM of bone not excluded; marrow edema and mild erosive change at resection margin in head of the 2nd proximal phalanx, OM not excluded; marrow edema in 3rd and 4th distal phalanges, OM not excluded; diffuse soft tissue edema throughout the foot suggests cellulitis; phlegmonous change, soft tissue gas, and wound suggested in medial soft tissues distal to the first MT stump; serpiginous fluid collection along the plantar aspect of the first tarsometatarsal joint suspicious for abscess. He has been getting vancomycin, cefepime, and flagyl. ID consulted 08/07. No telepresenter available to see patient at this time. Allergies Allergy/AdvReac Type Severity Reaction Status Date / Time cat dander Allergy Intermediate CONGESTION Verified 08/05/23 16:21 Home Medications Medication Instructions Recorded Confirmed Type Heparin Porcine Lock Flush 5 ml IV .Q SHIFT 08/05/23 08/05/23 History Protien Liquid 30 ml PO BID 08/05/23 08/05/23 History Vancomycin Iv Solution 1.25 g IV DAILY 08/05/23 08/05/23 History acetaminophen 650 mg 650 mg PO QID 08/05/23 08/05/23 History tablet,extended release amiodarone 200 mg tablet 200 mg PO DAILY 08/05/23 08/05/23 History amlodipine 2.5 mg tablet 2.5 mg PO HS 08/05/23 08/05/23 History apixaban 5 mg tablet (Eliquis) 5 mg PO BID 08/05/23 08/05/23 History atorvastatin 80 mg tablet (Lipitor) 80 mg PO HS 08/05/23 08/05/23 History carvedilol 3.125 mg tablet 3.125 mg PO BID 08/05/23 08/05/23 History clopidogrel 75 mg tablet 75 mg PO QAM 08/05/23 08/05/23 History empagliflozin 25 mg tablet 25 mg PO DAILY 08/05/23 08/05/23 History (Jardiance) ferrous sulfate 325 mg (65 mg 325 mg PO 3XWK 08/05/23 08/05/23 History iron) tablet furosemide 20 mg tablet 20 mg PO DAILY 08/05/23 08/05/23 History gabapentin 300 mg capsule 300 mg PO BID 08/05/23 08/05/23 History insulin glargine 100 unit/mL 25 unit subcut DAILY 08/05/23 08/05/23 History subcutaneous solution (Lantus U-100 Insulin) insulin lispro 100 unit/mL 1 sliding scale dose subcut 08/05/23 08/05/23 History subcutaneous cartridge (Humalog USEASDIRECTD U-100 Insulin) metformin 1,000 mg tablet 1,000 mg PO BID 08/05/23 08/05/23 History morphine 15 mg tablet,extended 15 mg PO Q12 08/05/23 08/05/23 History release oxycodone 5 mg tablet 5 mg PO Q4 PRN Pain 08/05/23 08/05/23 History pantoprazole 40 mg tablet,delayed 40 mg PO DAILY 08/05/23 08/05/23 History release (Protonix) sertraline 25 mg tablet 75 mg PO DAILY 08/05/23 08/05/23 History sodium chloride 1,000 mg soluble 1,000 mg PO AMHS 08/05/23 08/05/23 History tablet Patient History Medical History History of atrial fibrillation CAD (coronary artery disease) s/p CABG x 2 vessel June 2021 Acute HFrEF (heart failure with reduced ejection fraction) [facility] EF 50-55% per 05/2022 ECHO Cardiomyopathy Dyslipidemia Tobacco abuse smoke-12/day DM (diabetes mellitus) Atherosclerosis of artery of left lower extremity s/p left leg angiogram procedure with HORSE BUYER of proximal vein bypass 05/27/23 s/p left leg femoral artery to posterior tibial artery reverse saphenous vein bypass done at [facility] [place] 02/2023 s/p left SFA and popliteal stents History of anemia History of anxiety History of alcohol abuse started 1965, quit 1999 Hx of drug abuse started 1965, quit 1999 "used every drug known to man">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, stayed in for 13 years IV drug abuse hx-quit in 1981 History of hepatitis B hx IV drug use Hepatitis C virus has had since the late >no tx, "never had any trouble with it" Heart failure with mid-range ejection fraction Follows with [facility] EF 50-55% per 05/2022 ECHO Type 2 diabetes mellitus HTN (hypertension) Surgical History History of amputation of great toe S/P CABG x 2 ~2021, went to ER w/"anxiety," found to be in congestive heart failure, had more cardiac testing, sent for f/u w/s cardio surgeon, done @[facility]; f/u dr. mckeon Hx of cardiac catheterization 06/2021 [facility] History of open reduction and internal fixation (ORIF) procedure rt elbow and lt wrist>hardware intact Hx of colonoscopy History of left knee surgery 1988-tibial plateau reconstruction History of eye surgery retina History of cataract extraction rt/lt Social History Smoking Status: Current every day smoker Tobacco Type: Cigarettes Cigarettes Per Day: 6; Second Hand Exposure: No; Do You Dip or Chew Tobacco: No; Tobacco Cessation Education Requested by Patient: No Hx Alcohol Use: No Hx Substance Use: Yes Last Used Substance: Unknown Last Used Substance Other:: quit 1999-stated "used every drug known to man" Substance Use Type Other:: IV Drugs. 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 Diagnostic Findings Imaging reviewed.
[2023-08-08] MEDS: DAPTOmycin 550 MG in SYRINGE 0 ML IV SCH (17:34)
[2023-08-08] MEDS: CEFEPIME 2,000 MG in SYRINGE 0 ML IV SCH (17:35)
--- NOTE | 2023-08-08 17:55 | Hospitalist Progress Note ---
Date of Service August 08, 2023 Assessment & Plan (1) Diabetic infection of left foot: Plan: Patient with recent history of left foot revision and bacteremia. Presented from wound care clinic for concern of nonhealing surgical wound with abscess/osteomyelitis with malodorous/purulent drainage. Patient with pending MRI to dilate for osteomyelitis and metatarsal Dr. Ambriz surgical consultation for consideration of surgical revision patient is on Eliquis this was held beginning the evening of 08/06 -Previously on daptomycin/ceftaroline. Was on vancomycin as outpatient for endocarditis coverage. -REGINE from 07/27/2023 showed no valvular vegetations or significant valvular dysfunction. EF = 55-60%. surgery consult.-Continued on cefepime/Flagyl/vancomycin pending culture results on admission. -Preliminary left foot wound culture growing MRSA -Preliminary blood cultures negative at this time -Wound care consulted for pressure wound with erythema on sacrum. Also assessed foot. small tunnel noted with purulent fluid. This was packed. endocarditis seems doubtful as REGINE was negative however septic emboli was possibly seen on CT scan, however patient did not complain of any pulmonary symptoms last admission continues on vancomycin total course was for 4 weeks, ID consult (2) Heart failure with ejection fraction improved from reduced range to preserved range: Plan: Heart failure with reduced but subsequently improved EF amlodipine, coreg plavix lasix jardiance Replete electrolytes (3) Atrial fibrillation: Plan: rate controlled Eliquis on hold 08/07/2023 resume postoperatively. Amiodarone continued. Carvedilol continued. (4) DM (diabetes mellitus): Plan: Continue glargine 20 units a.m. and SSI Jardiance continued Glucose ACHS, goal [id number] Plan Discussed case with vascular surgery vascular surgery consult placed in the afternoon of [phone] Consulted wound care Ordered wound dressings Chronic stable issues: Hyponatremia. Chronic, mild. Trend daily. Continue sodium tablets. Anxiety: Continue home meds CODE STATUS: Full code VTE PPx: Currently on hold Admission and Anticipated Discharge Date Admission Date: August 05, 2023 Subjective 72 yo male reports no new symptoms. Review of Systems Review of Systems: All systems reviewed & are unremarkable except as noted in HPI & below Physical Exam Physical Exam: Pleasant gentleman in no apparent distress cardiac exam is distant regular lungs are clear without wheezes or crackles Foot bandages removes. foot appears clean. Viewed in presnce of wound care nuse. They appears to be a small tunnel in the wound with a small pocket of purulent fluid. Fluid was removed and pocket was packed. Results & Data Results & Data Vital Signs (Past 12 Hours) Vital Signs Temp Pulse Pulse Resp BP Pulse Ox O2 Del Method 08/08/23 15:58 36.7 C 64 16 156/70 H 94 Room Air 08/08/23 09:49 Room Air 08/08/23 07:50 36.4 C L 68 18 164/76 H 94 Room Air PG Care Time/CCT Total # of Minutes Spent Total Time Spent with Patient: Total time spent is greater than 50% in coordination of care (as documented) at patient's floor/unit and/or counseling patient: Coding Level of Care Code 89852 SUB INP/OBS CARE 3/50MIN Diagnoses Diabetic infection of left foot E11.628; L08.9 Heart failure with ejection fraction improved from reduced range to preserved range I50.32 Atrial fibrillation I48.91 DM (diabetes mellitus) E11.9 Time Spent (min) 50
[2023-08-09 06:05] LABS: Hematocrit (blood only) 25.2 % (42.0-52.0); Hemoglobin 7.6 g/dl (14.0-18.0); Mean Corpuscular Hemoglobin 25.3 pg (25.0-34.0); Mean Corpuscular Hgb Conc 30.2 g/dL (32.0-36.0); Mean Platelet Volume 9.9 fL (9.4-12.4); Platelet Count 344 K/uL (130-400); RDW Coefficient of Variation 16.5 % (11.5-14.5); RDW Standard Deviation 49.4 fL (36.4-46.3); White Blood Count 8.15 K/ul (4.8-10.8)
[2023-08-09 06:25] LABS: BUN Creatinine Ratio 10.2 (10-20); Calcium 7.5 mg/dl (8.6-10.3); Creatinine Clr Calc Pharmacy 50.6 ml/min; Est GFR (African American) 54.8 ml/min; Est GFR (Non-African American) 47.3 ml/min; Potassium 3.6 mmol/L (3.5-5.1)
--- NOTE | 2023-08-09 08:57 | Pharmacy Report ---
Pharmacy PK ABX Note - Date of Service August 09, 2023 - Assessment and Plan Assessment 08/08 * Daptomycin added to current regimen yesterday in light of MRSA growth in left foot culture w/ MISA of 2. Continuing vancomycin at this time due to concern of cavitary pneumonia. * Remains on broad spectrum regimen, vancomycin, daptomycin, cefepime, and metronidazole * Blood cultures x 2, Left foot culture growing MRSA * SCr slightly elevated from time of admission, but seemingly within patient normal range given historical SCr 08/06 * Random vanco level = 17.2 mcg/mL (this was drawn ~5 hours prior to next dose). Predicted AUC is slightly above 600, therefore close monitoring warranted. 08/04 * 72 year old M receiving cefepime, metronidazole, and vancomycin for treatment of ?bacteremia, ?endocarditis, and diabetic foot infection. * Pertinent microbiologic data includes: recent MRSA bacteremia (07/11 x2 and 07/18 x1) * SCr at/near baseline Plan Vancomycin * Current regimen: 1250 mg IV every 24 hours * Random level obtained 08/09/23 resulted as 16.6 mcg/mL. * Patient is currently considered an intermediate fit using insightRx software * Will plan to dose by trough level in this patient * Continue 1250 mg IV every 24 hours * Repeat trough level ordered for: 08/10/23 Pharmacy will continue to follow and will adjust dose/frequency as necessary. Thank you. Pharmacy has transitioned to AUC monitoring for vancomycin. AUC/MISA is the preferred PK/PD target and is associated with decreased risk of nephrotoxicity compared to traditional trough targets.
--- NOTE | 2023-08-09 09:47 | Infectious Disease Progress Nt ---
Date of Service August 09, 2023 Assessment & Plan (1) Osteomyelitis of foot, left, acute: (2) Diabetic infection of left foot: (3) MRSA bacteremia: Plan 72yo M with h/o peripheral arterial disease s/p LLE femoral to anterior tibial artery reverse GSV bypass in 02/2023, recent left 2nd toe infection with other toe eschars s/p LLE 2nd to amputation and debridement of toes 1, 3, and 4 on 06/16/23, CHF, diabetes, CAD s/p CABG, afib, pulmonary HTN, CKD III, chronic HCV, anxiety, recent admission 07/11-07/31 with left great toe infection (s/p amputation 07/14) along with MRSA bacteremia and multiple cavitary nodular lesions on CT chest c/f necrotic PNA v septic emboli v malignancy (TTE/REGINE neg, no respiratory sx, planned 4wks of vancomycin 07/20-08/17 followed by surveillance BCx) who presented on 08/04 with nonhealing surgical wound with abscess and malodorous/purulent drainage. He was seen at wound clinic where wound vac was removed and noted to have malodorous discharge. He was subsequently sent to the ED. He also reported having increasing pain in his foot for several days, not more red. No fevers, chills. Has been getting outpatient vancomycin. Here, he was afebrile, vss. WBC 11.8. Cr 1.29. LFT wnl. CRP 10.47. UA neg. COVID neg. Left foot XR with subchondral lucency within residual first MT and medial cuneiform bone, diffuse soft tissue swelling. Left foot MRI with findings highly suspicious for OM involving base of the first MT; significant marrow edema within the medial cuneiform with possible nondisplaced fracture, OM of bone not excluded; marrow edema and mild erosive change at resection margin in head of the 2nd proximal phalanx, OM not excluded; marrow edema in 3rd and 4th distal phalanges, OM not excluded; diffuse soft tissue edema throughout the foot suggests cellulitis; phlegmonous change, soft tissue gas, and wound suggested in medial soft tissues distal to the first MT stump; serpiginous fluid collection along the plantar aspect of the first tarsometatarsal joint suspicious for abscess. He has been getting vancomycin, cefepime, and flagyl. ID consulted 08/07. I spoke to Dr. Ambriz, no plans for surgical intervention. Given the high suspicion for OM on MRI, I will go ahead and treat with IV abx x 6 weeks. CX have MRSA despite being on vancomycin, awaiting broth microdilution to determine correct MISA on vanc from WCX. He also had gram negatives on gram stain. Will plan for broad spectrum empiric coverage of the OM since this developed despite being on MRSA coverage alone. Final regimen pending further results from micro. Dapto being kept on for possible vanc resistance in foot and vanc being kept for pulmonary coverage from prior infection. # Left foot osteomyelitis of multiple sites WCX MRSA # Recent MRSA bacteremia (REGINE neg) # Recent multiple cavitary nodular lesions ddx including necrotic PNA v septic emboli v malignancy # Recent h/o left great toe infection s/p amputation on 07/14 # Diabetes # PAD - will f/u broth microdilution of wound cx to determine actual vancomycin MISA from 08/04 cx - continuing daptomycin empirically x 48h while waiting for MISA results - continue vancomycin to keep lung coverage since dapto doesnt penetrate lungs - continue cefepime 2g IV q12h (renally adjusted, if CrCl > 60, then q8h) - continue flagyl 500mg PO q8h - will plan for 6 weeks of IV abx including cefepime, flagyl which can be for a shorter duration due to adverse effects, and MRSA coverage - final regimen pending micro lab add on test ID will continue to follow. If questions or concerns, contact Infectious Disease Call Center . Krys Godinez MD [facility], Division of Infectious Diseases [employer]Connect: [phone] Admission and Anticipated Discharge Date Admission Date: August 05, 2023 Subjective Subsequent visit was provided via telemedicine using two-way real-time interactive telecommunication between the patient and the telemedicine provider. For the duration of the visit, the provider was performing the assessment from a different facility than the patient. This includesuse of bluetooth stethoscope forauscultationperformed by the telepresenter that the telemedicine provider can hear if described in the physical exam. Desk Officer contact information: Please call ID Connect Call Center . (Phone Number For Physician Use Only) After establishing a telemedicine visit, patient was: Patient was verified with two unique identifiers, Patient/authorized rep acknowledged consent and understanding and Gave permission to continue telehealth session Time Spent with Patient: Subsequent => 55 min Patient feeling well. He has some stinging/throbbing in his foot. No new redness per patient. No abdominal pain or diarrhea. No muscle soreness. Physical Exam Physical Exam: General: Awake, alert, no acute distress HEENT: NC/AT, EOMI, mmm Neck: supple Lungs: respirations non-labored Heart: nl peripheral perfusion Abdomen: soft, NT/ND Ext: LLE with open wound that is packed, dressing with drainage, has some red discoloration at anterior lower suarez that is chronic per patient, no clear surrounding erythema of open wound Skin: as above Neuro: moving all extremities Results & Data Vital Signs (Past 12 Hours) Vital Signs Temp Pulse Resp BP Pulse Ox O2 Del Method 08/09/23 07:22 36.9 C 78 16 157/70 H 94 Room Air 08/08/23 21:45 Room Air Laboratory Results Labs reviewed.
[2023-08-09] MEDS: OPTIRAY 320 100ml IV ONE (16:51)
--- NOTE | 2023-08-09 18:03 | Hospitalist Progress Note ---
Date of Service August 09, 2023 Assessment & Plan (1) Diabetic infection of left foot: Plan: Patient with recent history of left foot revision and bacteremia. Presented from wound care clinic for concern of nonhealing surgical wound with abscess/osteomyelitis with malodorous/purulent drainage. Patient with pending MRI to dilate for osteomyelitis and metatarsal Dr. Ambriz surgical consultation for consideration of surgical revision patient is on Eliquis this was held beginning the evening of 08/06 -Previously on daptomycin/ceftaroline. Was on vancomycin as outpatient for endocarditis coverage. -REGINE from 07/27/2023 showed no valvular vegetations or significant valvular dysfunction. EF = 55-60%. surgery consult.-Continued on cefepime/Flagyl/vancomycin pending culture results on admission. -Preliminary left foot wound culture growing MRSA -Preliminary blood cultures negative at this time -Wound care consulted for pressure wound with erythema on sacrum. Also assessed foot. small tunnel noted with purulent fluid. This was packed. endocarditis seems doubtful as REGINE was negative however septic emboli was possibly seen on CT scan, however patient did not complain of any pulmonary symptoms last admission continues on vancomycin total course was for 4 weeks, ID consult Will repeat CT scan of chest and abd/pelvis given a possible mass on the liver and rechecking the lung. D/W IR. will re-eval once ct scan obtained. (2) Heart failure with ejection fraction improved from reduced range to preserved range: Plan: Heart failure with reduced but subsequently improved EF amlodipine, coreg plavix lasix jardiance Replete electrolytes (3) Atrial fibrillation: Plan: rate controlled Eliquis on hold 08/07/2023 resume postoperatively. Amiodarone continued. Carvedilol continued. (4) DM (diabetes mellitus): Plan: Continue glargine 20 units a.m. and SSI Jardiance continued Glucose ACHS, goal [id number] Plan Discussed case with vascular surgery vascular surgery consult placed in the af ternoon of [phone] Consulted wound care Ordered wound dressings Chronic stable issues: Hyponatremia. Chronic, mild. Trend daily. Continue sodium tablets. Anxiety: Continue home meds CODE STATUS: Full code VTE PPx: Currently on hold Admission and Anticipated Discharge Date Admission Date: August 05, 2023 Subjective 72 yo male reports no new symptoms. Review of Systems Review of Systems: All systems reviewed & are unremarkable except as noted in HPI & below Physical Exam Physical Exam: Pleasant gentleman in no apparent distress cardiac exam is distant regular lungs are clear without wheezes or crackles Foot bandages removes. foot appears clean. Viewed in presnce of wound care nuse. They appears to be a small tunnel in the wound with a small pocket of purulent fluid. Fluid was removed and pocket was packed. Results & Data Results & Data Vital Signs (Past 12 Hours) Vital Signs Temp Pulse Resp BP Pulse Ox O2 Del Method 08/09/23 14:55 36.5 C 72 18 157/67 H 96 Room Air 08/09/23 07:22 36.9 C 78 16 157/70 H 94 Room Air PG Care Time/CCT Total # of Minutes Spent Total Time Spent with Patient: Total time spent is greater than 50% in coordination of care (as documented) at patient's floor/unit and/or counseling patient: Coding Level of Care Code 75555 SUB INP/OBS CARE 3/50MIN Diagnoses Diabetic infection of left foot E11.628; L08.9 Heart failure with ejection fraction improved from reduced range to preserved range I50.32 Atrial fibrillation I48.91 DM (diabetes mellitus) E11.9
--- NOTE | 2023-08-09 20:25 | CT Scan Report ---
CT chest diagnostic w con CLINICAL HISTORY: multiple lung nodules/ concern for malignancy TECHNIQUE: Multidetector row helical CT of the chest was performed with intravenous contrast. Coronal and sagittal reformations were obtained. Automated dose lowering techniques and/or adjustment accord ing to patient size were utilized for this exam. CT DOSE: 2164.58 mGy.cm Comparison: Comparison is made to CT chest 07/20/2023 FINDINGS: Lungs and pleura: There is a small right and trace left pleural effusion, enlarged from prior exam. M ultifocal peripheral pulmonary nodules of the interval from prior exam but are largely somewhat decre ased in size. Prominent nodules include an 18 mm nodule in the left upper lobe, previously cavitary a nd measuring 19 mm, a 14 mm left lower lobe nodule, previously measuring 20 mm, a 16 mm lingular nodu le, previously measuring 23 mm, and a 7 mm nodule in the right lower lobe, previously measuring 10 mm . Heart and pericardium: Cardiomegaly is seen with biatrial enlargement. Vessels: Severe atherosclerotic changes in the aorta and coronary arteries. Mediastinum and kavon: Enlarged mediastinal lymph nodes measure up to 11 mm. Chest wall and lower neck: Unremarkable. Abdomen: For findings below the diaphragm, please refer to CT of the abdomen dated the same. Bones: Degenerative changes in the thoracic spine. IMPRESSION: Overall modest improvement in burden of numerous pulmonary nodules, some cavitary, compatible with ne crotic pneumonia versus less likely septic emboli. Small right and trace left pleural effusion, sligh tly increased from prior exam. ACT 112: Negative or not required by law. Electronically signed by: Cody Fair M.D. 08/09/2023 8:22 PM
--- NOTE | 2023-08-09 20:28 | CT Scan Report ---
CT abd pelvis oral and IV con CLINICAL HISTORY: liver mass TECHNIQUE: Helical axial images of the abdomen and pelvis were obtained and displayed. Automated dose lowering techniques and/or adjustment according to patient size were utilized for this exam. This e xam was performed with intravenous contrast. COMPARISON: None available at the time of this dictation. FINDINGS: Lower chest: No acute abnormality. Liver: There is an ill-defined approximately 34 mm hypodensity in segment 8 of the liver. Gallbladder and biliary tree: Cholelithiasis is seen without evidence of cholecystitis. No intra- or extrahepatic biliary ductal dilation. Pancreas: Unremarkable, no focal lesions. Spleen: Splenule is incidentally noted. Adrenals: Unremarkable. Kidneys and ureters: Renal cysts are seen. Bladder: Unremarkable. Reproductive organs: Unremarkable. Bowel: Diverticulosis is seen without diverticulitis. The appendix is normal. Lymph nodes Retroperitoneal: Unremarkable. Pelvic: Unremarkable. Mesenteric: Unremarkable. Peritoneum: Normal. Vessels: Atherosclerotic calcifications are seen. Abdominal wall: Unremarkable. Bones: Degenerative changes in the visualized spine. Old healed fractures are seen. IMPRESSION: Hypodense liver mass is nonspecific but concerning for developing liver abscess in this patient with bacteremia. Follow-up to resolution is recommended, a liver mass protocol MRI may be obtained for fur ther characterization. ACT 112: Negative or not required by law. Electronically signed by: Cody Fair M.D. 08/09/2023 8:26 PM
[2023-08-10] MEDS: VANCOMYCIN LEVEL ONE (09:28)
--- NOTE | 2023-08-10 09:38 | Infectious Disease Progress Nt ---
Date of Service August 10, 2023 Assessment & Plan (1) Osteomyelitis of foot, left, acute: (2) Diabetic infection of left foot: (3) MRSA bacteremia: Plan 72yo M with h/o peripheral arterial disease s/p LLE femoral to anterior tibial artery reverse GSV bypass in 02/2023, recent left 2nd toe infection with other toe eschars s/p LLE 2nd to amputation and debridement of toes 1, 3, and 4 on 06/16/23, CHF, diabetes, CAD s/p CABG, afib, pulmonary HTN, CKD III, chronic HCV, anxiety, recent admission 07/11-07/31 with left great toe infection (s/p amputation 07/14) along with MRSA bacteremia and multiple cavitary nodular lesions on CT chest c/f necrotic PNA v septic emboli v malignancy (TTE/REGINE neg, no respiratory sx, planned 4wks of vancomycin 07/20-08/17 followed by surveillance BCx) who presented on 08/04 with nonhealing surgical wound with abscess and malodorous/purulent drainage. He was seen at wound clinic where wound vac was removed and noted to have malodorous discharge. He was subsequently sent to the ED. He also reported having increasing pain in his foot for several days, not more red. No fevers, chills. Has been getting outpatient vancomycin. Here, he was afebrile, vss. WBC 11.8. Cr 1.29. LFT wnl. CRP 10.47. UA neg. COVID neg. Left foot XR with subchondral lucency within residual first MT and medial cuneiform bone, diffuse soft tissue swelling. Left foot MRI with findings highly suspicious for OM involving base of the first MT; significant marrow edema within the medial cuneiform with possible nondisplaced fracture, OM of bone not excluded; marrow edema and mild erosive change at resection margin in head of the 2nd proximal phalanx, OM not excluded; marrow edema in 3rd and 4th distal phalanges, OM not excluded; diffuse soft tissue edema throughout the foot suggests cellulitis; phlegmonous change, soft tissue gas, and wound suggested in medial soft tissues distal to the first MT stump; serpiginous fluid collection along the plantar aspect of the first tarsometatarsal joint suspicious for abscess. He has been getting vancomycin, cefepime, and flagyl. ID consulted 08/07. Per discussion with vascular, no plans for surgical intervention. Given the high suspicion for OM on MRI, plan to treat with IV abx x 6 weeks. CX have MRSA despite being on vancomycin, awaiting broth microdilution to determine correct MISA on vanc from WCX. He also had gram negatives on gram stain. Will plan for broad spectrum empiric coverage of the OM since this developed despite being on MRSA coverage alone. Final regimen pending further results from micro. Dapto being kept on for possible vanc resistance in foot and vanc being kept for pulmonary coverage from prior infection. I spoke to micro lab and they are running the broth microdilution for vanc in wound cx today, and results will be available tomorrow. Options to consider for MRSA coverage: vanc alone if MISA is 1 with eventual change to dapto once tx for lung infection is complete to reduce renal toxicity (ie next week) OR dapto + linezolid if vanc MISA is 2 where linezolid will be stopped after completion of tx for lung infection (note he is on one SSRI, which should be ok in terms of drug interaction). # Left foot osteomyelitis of multiple sites WCX MRSA # Recent MRSA bacteremia (REGINE neg) # Recent multiple cavitary nodular lesions ddx including necrotic PNA v septic emboli v malignancy # Recent h/o left great toe infection s/p amputation on 07/14 # Diabetes # PAD - will f/u broth microdilution of wound cx to determine actual vancomycin MISA from 08/04 cx - continuing daptomycin empirically while waiting for MISA results - continue vancomycin to keep lung coverage since dapto doesnt penetrate lungs - continue cefepime 2g IV q12h (renally adjusted, if CrCl > 60, then q8h) - continue flagyl 500mg PO q8h - will plan for 6 weeks of IV abx including cefepime, flagyl which can be for a shorter duration due to adverse effects, and MRSA coverage - final regimen pending micro lab add on test ID will continue to follow. If questions or concerns, contact Infectious Disease Call Center . Krys Godinez MD [facility], Division of Infectious Diseases IDConnect: [phone] Admission and Anticipated Discharge Date Admission Date: August 05, 2023 Subjective This patient recommendation is based on a telemedicine consult request which was completed asynchronously through chart review and information provided by the primary physician. The patient was not seen or examined today. The evaluation is consultative in nature and all patient care and treatment decisions can either be accepted or rejected by the patient's primary hospital-based treating physician using their own independent medical judgment for their patient. Time Spent Reviewing Chart: 31+ minutes Results & Data Vital Signs (Past 12 Hours) Vital Signs Temp Pulse Resp BP Pulse Ox O2 Del Method 08/10/23 07:00 36.6 C 83 16 177/73 H 96 Room Air
[2023-08-10 09:49] LABS: Hematocrit (blood only) 26.1 % (42.0-52.0); Hemoglobin 7.9 g/dl (14.0-18.0); Mean Corpuscular Hemoglobin 25.7 pg (25.0-34.0); Mean Corpuscular Hgb Conc 30.3 g/dL (32.0-36.0); Platelet Count 307 K/uL (130-400); RDW Coefficient of Variation 16.9 % (11.5-14.5); RDW Standard Deviation 51.3 fL (36.4-46.3); Red Blood Count 3.07 M/uL (4.70-6.10); White Blood Count 8.72 K/ul (4.8-10.8)
--- NOTE | 2023-08-10 09:53 | Pharmacy Report ---
Pharmacy PK ABX Note - Date of Service August 10, 2023 - Assessment and Plan Assessment 08/09 * See ID note from 08/09: micro lab running the broth microdilution for vanc in wound cx today, and results will be available tomorrow. Options to consider for MRSA coverage: vanc alone if MISA is 1 with eventual change to dapto once tx for lung infection is complete to reduce renal toxicity (ie next week) OR dapto + linezolid if vanc MISA is 2 where linezolid will be stopped after completion of tx for lung infection (note he is on one SSRI, which should be ok in terms of drug interaction). * Trough vanc level ordered for today as patient is currently considered an intermediate fit using [employer] software. 08/08 * Daptomycin added to current regimen yesterday in light of MRSA growth in left foot culture w/ MISA of 2. Continuing vancomycin at this time due to concern of cavitary pneumonia. * Remains on broad spectrum regimen, vancomycin, daptomycin, cefepime, and metronidazole * Blood cultures x 2, Left foot culture growing MRSA * SCr slightly elevated from time of admission, but seemingly within patient normal range given historical SCr 08/06 * Random vanco level = 17.2 mcg/mL (this was drawn ~5 hours prior to next dose). Predicted AUC is slightly above 600, therefore close monitoring warranted. 08/04 * 72 year old M receiving cefepime, metronidazole, and vancomycin for treatment of ?bacteremia, ?endocarditis, and diabetic foot infection. * Pertinent microbiologic data includes: recent MRSA bacteremia (07/11 x2 and 07/18 x1) * SCr at/near baseline Plan Vancomycin * Current regimen: 1250 mg IV every 24 hours * Trough level obtained 08/10/23 resulted as 15 mcg/mL. * Continue 1250 mg IV every 24 hours * Repeat level in 48-72 hours if therapy continued, based on broth microdilution results tomorrow Daptomycin 550mg IV Q24H Cefepime 2g IV Q12H Metronidazole 500mg IV Q8H Pharmacy will continue to follow and will adjust dose/frequency as necessary. Thank you. Pharmacy has transitioned to AUC monitoring for vancomycin. AUC/MISA is the preferred PK/PD target and is associated with decreased risk of nephrotoxicity compared to traditional trough targets.
[2023-08-10 10:03] LABS: BUN Creatinine Ratio 10.8 (10-20); C Reactive Protein 2.26 mg/dl (0-0.5); Calcium 7.7 mg/dl (8.6-10.3); Creatinine Clr Calc Pharmacy 57.2 ml/min; Est GFR (African American) 63.6 ml/min; Est GFR (Non-African American) 54.9 ml/min; Potassium 3.5 mmol/L (3.5-5.1)
--- NOTE | 2023-08-10 18:30 | Hospitalist Progress Note ---
Date of Service August 10, 2023 Assessment & Plan (1) Diabetic infection of left foot: Plan: Patient with recent history of left foot revision and bacteremia. Presented from wound care clinic for concern of nonhealing surgical wound with abscess/osteomyelitis with malodorous/purulent drainage. Patient with pending MRI to dilate for osteomyelitis and metatarsal Dr. Ambriz surgical consultation for consideration of surgical revision patient is on Eliquis this was held beginning the evening of 08/06 -Previously on daptomycin/ceftaroline. Was on vancomycin as outpatient for endocarditis coverage. -REGINE from 07/27/2023 showed no valvular vegetations or significant valvular dysfunction. EF = 55-60%. surgery consult.-Continued on cefepime/Flagyl/vancomycin pending culture results on admission. -Preliminary left foot wound culture growing MRSA -Preliminary blood cultures negative at this time -Wound care consulted for pressure wound with erythema on sacrum. Also assessed foot. small tunnel noted with purulent fluid. This was packed. endocarditis seems doubtful as REGINE was negative however septic emboli was possibly seen on CT scan, however patient did not complain of any pulmonary symptoms last admission continues on vancomycin total course was for 4 weeks, ID consult CT scan of chest and abd/pelvis sow decrease in size from lung nodules and liver absesss. D/W IR, recomend no intervention. d/w ID, continue antibiotics (2) Heart failure with ejection fraction improved from reduced range to preserved range: Plan: Heart failure with reduced but subsequently improved EF amlodipine, coreg plavix lasix jardiance Replete electrolytes (3) Atrial fibrillation: Plan: rate controlled Eliquis on hold 08/07/2023 resume postoperatively. Amiodarone continued. Carvedilol continued. (4) DM (diabetes mellitus): Plan: Continue glargine 20 units a.m. and SSI Jardiance continued Glucose ACHS, goal [id number] Plan Discussed case with vascular surgery vascular surgery consult placed in the afternoon of [phone] Consulted wound care Ordered wound dressings Chronic stable issues: Hyponatremia. Chronic, mild. Trend daily. Continue sodium tablets. Anxiety: Continue home meds CODE STATUS: Full code VTE PPx: Currently on hold Admission and Anticipated Discharge Date Admission Date: August 05, 2023 Subjective 72 yo male reports no new symptoms. Review of Systems Review of Systems: All systems reviewed & are unremarkable except as noted in HPI & below Physical Exam Physical Exam: Pleasant gentleman in no apparent distress cardiac exam is distant regular lungs are clear without wheezes or crackles Foot bandages removes. foot appears clean. Viewed in presnce of wound care nuse. They appears to be a small tunnel in the wound with a small pocket of purulent fluid. Fluid was removed and pocket was packed. Results & Data Results & Data Vital Signs (Past 12 Hours) Vital Signs Temp Pulse Resp BP Pulse Ox O2 Del Method 08/10/23 14:03 36.3 C L 71 16 148/68 H 96 Room Air 08/10/23 07:00 36.6 C 83 16 177/73 H 96 Room Air PG Care Time/CCT Total # of Minutes Spent Total Time Spent with Patient: Total time spent is greater than 50% in coordination of care (as documented) at patient's floor/unit and/or counseling patient: Coding Level of Care Code 83926 SUB INP/OBS CARE 2/35MIN Diagnoses Diabetic infection of left foot E11.628; L08.9 Heart failure with ejection fraction improved from reduced range to preserved range I50.32 Atrial fibrillation I48.91 DM (diabetes mellitus) E11.9
[2023-08-11 07:54] LABS: Hematocrit (blood only) 25.4 % (42.0-52.0); Hemoglobin 7.8 g/dl (14.0-18.0); Mean Corpuscular Hemoglobin 26.2 pg (25.0-34.0); Mean Corpuscular Hgb Conc 30.7 g/dL (32.0-36.0); Mean Corpuscular Volume 85.2 fL (80.0-100.0); Mean Platelet Volume 9.9 fL (9.4-12.4); Platelet Count 280 K/uL (130-400); RDW Coefficient of Variation 17.2 % (11.5-14.5); RDW Standard Deviation 52.5 fL (36.4-46.3); Red Blood Count 2.98 M/uL (4.70-6.10); White Blood Count 8.29 K/ul (4.8-10.8)
[2023-08-11 08:10] LABS: BUN Creatinine Ratio 13.6 (10-20); Calcium 7.5 mg/dl (8.6-10.3); Creatinine Clr Calc Pharmacy 59.5 ml/min; Est GFR (African American) 66.7 ml/min; Est GFR (Non-African American) 57.6 ml/min; Potassium 3.4 mmol/L (3.5-5.1)
--- NOTE | 2023-08-11 09:05 | Infectious Disease Progress Nt ---
Date of Service August 11, 2023 Assessment & Plan (1) Osteomyelitis of foot, left, acute: (2) Diabetic infection of left foot: (3) MRSA bacteremia: Plan 72yo M with h/o peripheral arterial disease s/p LLE femoral to anterior tibial artery reverse GSV bypass in 02/2023, recent left 2nd toe infection with other toe eschars s/p LLE 2nd to amputation and debridement of toes 1, 3, and 4 on 06/16/23, CHF, diabetes, CAD s/p CABG, afib, pulmonary HTN, CKD III, chronic HCV, anxiety, recent admission 07/11-07/31 with left great toe infection (s/p amputation 07/14) along with MRSA bacteremia and multiple cavitary nodular lesions on CT chest c/f necrotic PNA v septic emboli v malignancy (TTE/REGINE neg, no respiratory sx, planned 4wks of vancomycin 07/20-08/17 followed by surveillance BCx) who presented on 08/04 with nonhealing surgical wound with abscess and malodorous/purulent drainage. He was seen at wound clinic where wound vac was removed and noted to have malodorous discharge. He was subsequently sent to the ED. He also reported having increasing pain in his foot for several days, not more red. No fevers, chills. Has been getting outpatient vancomycin. Here, he was afebrile, vss. WBC 11.8. Cr 1.29. LFT wnl. CRP 10.47. UA neg. COVID neg. Left foot XR with subchondral lucency within residual first MT and medial cuneiform bone, diffuse soft tissue swelling. Left foot MRI with findings highly suspicious for OM involving base of the first MT; significant marrow edema within the medial cuneiform with possible nondisplaced fracture, OM of bone not excluded; marrow edema and mild erosive change at resection margin in head of the 2nd proximal phalanx, OM not excluded; marrow edema in 3rd and 4th distal phalanges, OM not excluded; diffuse soft tissue edema throughout the foot suggests cellulitis; phlegmonous change, soft tissue gas, and wound suggested in medial soft tissues distal to the first MT stump; serpiginous fluid collection along the plantar aspect of the first tarsometatarsal joint suspicious for abscess. He has been getting vancomycin, cefepime, and flagyl. ID consulted 08/07. Per discussion with vascular, no plans for surgical intervention. WCx from 08/04 (which were obtained at [facility]) had MRSA with vanc EVELYN 2, which was confirmed to be 2 after retesting, gram stain also with gram negatives but no growth. CT chest 08/08 with overall modest improvement in burden of numerous pulmonary nodules, some cavitary, c/w necrotic PNA vs less likely septic emboli. Given high vancomycin EVELYN, this is not an adequate therapy for his infection. He does not have endocarditis per REGINE from his last admission, but did have findings of possible necrotizing PNA on CT which needs to be covered. He also had persistent MRSA bacteremia from his last admission and has received at least 3 weeks of IV abx for MRSA. For his current infection, foot OM with growth of MRSA, concern is that his treatment for MRSA was inadequate. Along with possible other organisms in foot. Since there is high suspicion for OM on MRI and no surgical intervention, will go ahead and treat with empiric regimen. Given inability to use daptomycin at his nursing facility, and vancomycin likely inadequate given high EVELYN, will change him to linezolid + doxycycline (dual coverage for an ongoing MRSA infection for initial 3 weeks then monotherapy). I do still want to include empiric gram negative coverage since GNR were seen in culture gram stain and given diabetic foot OM, would like to include broad coverage. This can be done with IV cefepime with added anaerobic coverage with flagyl. Cefepime can be changed to PO ciprofloxacin after an initial 2-3 weeks of IV abx if needed. And will only keep flagyl for a short course to avoid adverse effects of prolonged therapy. Abx: Dapto 08/07- Vanc /7- Cefepime 08/04- Metronidazole 08/04- Zosyn 08/04 Micro: 07/11 BCX: MRSA 07/18 BCX: MRSA in 1 of 2 sets 07/20 BCX: ngtd 08/04 BCX: ngtd 08/04 WCX (L foot): MRSA (vanc evelyn 1) 08/04 WCX 2 (L foot): GNR/GPC on GS, cx with MRSA (vanc evelyn 2) 08/05 MRSA screen: pos # Left foot osteomyelitis of multiple sites WCX MRSA (vanc EVELYN 2), gs with GNR # Recent MRSA bacteremia (REGINE neg) # Recent multiple cavitary nodular lesions likely necrotic PNA / MRSA # Recent h/o left great toe infection s/p amputation on 07/14 # Diabetes # PAD - Nano stopped vancomycin and daptomycin - will start linezolid and doxycycline (see above discussion) - continue cefepime 2g IV q12h (renally adjusted, if CrCl > 60, then q8h) - continue flagyl 500mg PO q8h Discharge plan: - linezolid 600mg PO bid (can be stopped early with continued MRSA monotherapy with doxy if adverse effects noted) dual coverage for 3 weeks, start 08/07, eot 08/28 - doxycycline 100mg PO bid x 6 weeks (start 08/07, eot 09/18) - cefepime 2g IV q8h for CrCl > 60 (currently renally adjusted to q12h) x 6 weeks (start 08/07, eot 09/18) can be changed to ciprofloxacin 500mg PO bid aft er 2-3 weeks of IV therapy - metronidazole 500 PO q8h x 2 weeks (start 08/07, eot 08/21) - monitor weekly CBC w diff, CMP, ESR, CRP while on IV abx - follow up outpatient with either PCP or local ID provider ID will discontinue active follow up at this time. Please do not hesitate to reconsult the Infectious Diseases service as needed. Krys Godinez MD [facility], Division of Infectious Diseases [facility]: [phone] Admission and Anticipated Discharge Date Admission Date: August 05, 2023 Subjective Subsequent visit was provided via telemedicine using two-way real-time interactive telecommunication between the patient and the telemedicine provider. For the duration of the visit, the provider was performing the assessment from a different facility than the patient. This includesuse of bluetooth stethoscope forauscultationperformed by the telepresenter that the telemedicine provider can hear if described in the physical exam. Customer Experience Leader contact information: Please call [facility] Call Center [phone]. (Phone Number For Physician Use Only) After establishing a telemedicine visit, patient was: Patient was verified with two unique identifiers, Patient/authorized rep acknowledged consent and understanding and Gave permission to continue telehealth session Time Spent with Patient: Subsequent => 55 min Patient feeling well. No abdominal pain or diarrhea. Still some pain in the foot. Physical Exam Physical Exam: General: Awake, alert, no acute distress HEENT: NC/AT, EOMI, mmm Neck: supple Lungs: respirations non-labored Heart: nl peripheral perfusion Abdomen: soft, NT/ND Ext: LLE dressing over foot, no erythema, some edema reported chronic Skin: no rash Neuro: moving all extremities Results & Data Vital Signs (Past 12 Hours) Vital Signs Temp Pulse Resp BP Pulse Ox O2 Del Method 08/11/23 07:38 36.3 C L 72 18 172/72 H 96 Room Air Laboratory Results Labs reviewed. Diagnostic Findings Imaging reviewed.
[2023-08-11] MEDS: LINEZOLID 600 MG TAB PO SCH (13:32)
[2023-08-11] MEDS: metroNIDAZOLE 500 MG TAB PO SCH (13:32)
[2023-08-11] MEDS: DOXYCYCLINE HYCLATE 100 MG CAP PO SCH (13:32)
--- NOTE | 2023-08-11 16:47 | Hospitalist Progress Note ---
Date of Service August 11, 2023 Assessment & Plan (1) Diabetic infection of left foot: Plan: Patient with recent history of left foot revision and bacteremia. Presented from wound care clinic for concern of nonhealing surgical wound with abscess/osteomyelitis with malodorous/purulent drainage. Patient with pending MRI to dilate for osteomyelitis and metatarsal Dr. Ambriz surgical consultation for consideration of surgical revision patient is on Eliquis this was held beginning the evening of 08/06 -Previously on daptomycin/ceftaroline. Was on vancomycin as outpatient for endocarditis coverage. -REGINE from 07/27/2023 showed no valvular vegetations or significant valvular dysfunction. EF = 55-60%. surgery consult.-Continued on cefepime/Flagyl/vancomycin pending culture results on admission. -Preliminary left foot wound culture growing MRSA -Preliminary blood cultures negative at this time -Wound care consulted for pressure wound with erythema on sacrum. Also assessed foot. small tunnel noted with purulent fluid. This was packed. endocarditis seems doubtful as REGINE was negative however septic emboli was possibly seen on CT scan, however patient did not complain of any pulmonary symptoms last admission continues on vancomycin total course was for 4 weeks, ID consult CT scan of chest and abd/pelvis sow decrease in size from lung nodules and liver absesss. D/W IR, recomend no intervention. d/w ID, continue antibiotics Plan to discharge on 08/11 Discharge plan: - linezolid 600mg PO bid (can be stopped early with continued MRSA monotherapy with doxy if adverse effects noted) dual coverage for 3 weeks, start 08/07, eot 08/28 - doxycycline 100mg PO bid x 6 weeks (start 08/07, eot 09/18) - cefepime 2g IV q8h for CrCl > 60 (currently renally adjusted to q12h) x 6 weeks (start 08/07, eot 09/18) can be changed to ciprofloxacin 500mg PO bid after 2-3 weeks of IV therapy - metronidazole 500 PO q8h x 2 weeks (start 08/07, eot 08/21) - monitor weekly CBC w diff, CMP, ESR, CRP while on IV abx - follow up outpatient with either PCP or local ID provider (2) Heart failure with ejection fraction improved from reduced range to preserved range: Plan: Heart failure with reduced but subsequently improved EF amlodipine, coreg plavix lasix jardiance Replete electrolytes (3) Atrial fibrillation: Plan: rate controlled Eliquis on hold 08/07/2023 resume postoperatively. Amiodarone continued. Carvedilol continued. (4) DM (diabetes mellitus): Plan: Continue glargine 20 units a.m. and SSI Jardiance continued Glucose ACHS, goal [id number] Plan Discussed case with vascular surgery vascular surgery consult placed in the afternoon of [phone] Consulted wound care Ordered wound dressings Chronic stable issues: Hyponatremia. Chronic, mild. Trend daily. Continue sodium tablets. Anxiety: Continue home meds CODE STATUS: Full code VTE PPx: Currently on hold Admission and Anticipated Discharge Date Admission Date: August 05, 2023 Subjective 72 yo male reports no new symptoms. Review of Systems Review of Systems: All systems reviewed & are unremarkable except as noted in HPI & below Physical Exam Physical Exam: Pleasant gentleman in no apparent distress cardiac exam is distant regular lungs are clear without wheezes or crackles Foot bandages removes. foot appears clean. Viewed in presnce of wound care nuse. They appears to be a small tunnel in the wound with a small pocket of purulent fluid. Fluid was removed and pocket was packed. Results & Data Results & Data Vital Signs (Past 12 Hours) Vital Signs Temp Pulse Resp BP Pulse Ox O2 Del Method 08/11/23 07:38 36.3 C L 72 18 172/72 H 96 Room Air PG Care Time/CCT Total # of Minutes Spent Total Time Spent with Patient: Total time spent is greater than 50% in coordination of care (as documented) at patient's floor/unit and/or counseling patient: Coding Level of Care Code 31825 SUB INP/OBS CARE 2/35MIN Diagnoses Diabetic infection of left foot E11.628; L08.9 Heart failure with ejection fraction improved from reduced range to preserved range I50.32 Atrial fibrillation I48.91 DM (diabetes mellitus) E11.9
[2023-08-12 10:19] LABS: Hematocrit (blood only) 26.2 % (42.0-52.0); Hemoglobin 7.9 g/dl (14.0-18.0); Mean Corpuscular Hemoglobin 25.7 pg (25.0-34.0); Mean Corpuscular Hgb Conc 30.2 g/dL (32.0-36.0); Mean Corpuscular Volume 85.3 fL (80.0-100.0); Mean Platelet Volume 10.4 fL (9.4-12.4); Platelet Count 261 K/uL (130-400); RDW Coefficient of Variation 17.7 % (11.5-14.5); RDW Standard Deviation 54.3 fL (36.4-46.3); Red Blood Count 3.07 M/uL (4.70-6.10); White Blood Count 7.31 K/ul (4.8-10.8)
[2023-08-12 10:21] LABS: BUN Creatinine Ratio 12.3 (10-20); Calcium 7.6 mg/dl (8.6-10.3); Est GFR (African American) 68.7 ml/min; Est GFR (Non-African American) 59.3 ml/min; Potassium 3.3 mmol/L (3.5-5.1)
--- NOTE | 2023-08-12 12:38 | Discharge Summary ---
Date of Service August 12, 2023 Admission HPI Per Admitting Provider 72-year-old male with a past medical history of type II DM, diabetic foot wound, A-fib, heart failure with reduced ejection fraction subsequently improved, SVT who was referred from wound care clinic for concern of a nonhealing surgical wound with abscess and malodorous/purulent drainage. This is completed at wound care, and patient has additional sacral and buttock wounds. Patient was recently discharged 6 days ago after an admission for a diabetic foot infection requiring treatment and toe amputation, and complicated by MRSA bacteremia. TTE did not show vegetation however patient was treated for presumed endocarditis given blood culture results and was to complete 6 weeks of Dapto therapy. Wound VAC removed in clinic. Malodorous discharge. Cody seen the bedside. He reports that he was told his left leg has had drainage and infection was for to the ER. He reports he has had increased pain in the foot for several days. Does not think it has been any more red than usual. Denies other symptoms he denies fever, chills, sweats, chest pain, chest pressure, lightheadedness, dizziness, syncope, presyncope. Reports he has been getting vancomycin as outpatient as directed. No other questions or concerns. Is concerned about having the wound redressed and whether antibiotics alone will be enough to manage the infection. Noted that x-ray did not show evidence of bony involvement, but that an x-ray does not have definitive sensitivity and this cannot be completely excluded at this time. No other questions at bedside Medical History: Reviewed Medications: Reviewed Surgical History: Reviewed Family history: Reviewed Allergies: Reviewed Social History: Reviewed Code Status: FUll Principal Diagnosis diabetic infection of the left foot. Discharge Exam Pleasant gentleman in no apparent distress cardiac exam is distant regular lungs are clear without wheezes or crackles Foot bandage on. Discharge Data Allergies Allergy/AdvReac Type Severity Reaction Status Date / Time cat dander Allergy Intermediate CONGESTION Verified 08/05/23 16:21 Consultations 08/05/23 15:10 ED Decision to Admit Stat 08/08/23 07:00 Consult Vascular Surgery Routine 08/08/23 11:36 Consult Infectious Diseases Routine Ordered Studies 08/07/23 14:56 MRI Foot [MR foot LT w/o con] Routine 08/09/23 12:59 CT Abd and Pelvis [CT abd pelvis oral and IV con] Routine CT chest diagnostic w con Routine Hospital Course (1) Diabetic infection of left foot: Patient with recent history of left foot revision and bacteremia. Presented from wound care clinic for concern of nonhealing surgical wound with abscess/osteomyelitis with malodorous/purulent drainage. Patient with pending MRI to dilate for osteomyelitis and metatarsal Dr. Ambriz surgical consultation for consideration of surgical revision patient is on Eliquis this was held beginning the evening of 08/06 -Previously on daptomycin/ceftaroline. Was on vancomycin as outpatient for endocarditis coverage. -RGEINE from 07/27/2023 showed no valvular vegetations or significant valvular d ysfunction. EF = 55-60%. surgery consult.-Continued on cefepime/Flagyl/vancomycin pending culture results on admission. -left foot wound culture growing MRSA -blood cultures negative at this time -Wound care consulted for pressure wound with erythema on sacrum. Also assessed foot. small tunnel noted with purulent fluid. This was packed. endocarditis seems doubtful as REGINE was negative however septic emboli was seen on CT scan, however patient did not complain of any pulmonary symptoms last admission CT scan of chest and abd/pelvis did show decrease in size from lung nodules and liver abscess. D/W IR, recommend no intervention. d/w ID, continue antibiotics as noted below. Discharged on 08/11 Discharge plan: - linezolid 600mg PO bid (can be stopped early with continued MRSA monotherapy with doxy if adverse effects noted) dual coverage for 3 weeks, start 08/07, eot 08/28 - doxycycline 100mg PO bid x 6 weeks (start 08/07, eot 09/18) - cefepime 2g IV q8h for CrCl > 60 (currently renally adjusted to q12h) x 6 weeks (start 08/07, eot 09/18) can be changed to ciprofloxacin 500mg PO bid after 2-3 weeks of IV therapy - metronidazole 500 PO q8h x 2 weeks (start 08/07, eot 08/21) - monitor weekly CBC w diff, CMP, ESR, CRP while on IV abx - follow up outpatient with either PCP or local ID provider (2) Heart failure with ejection fraction improved from reduced range to preserved range: Heart failure with reduced but subsequently improved EF amlodipine, coreg plavix lasix jardiance Entresto ordered at discharge. Replete electrolytes (3) Atrial fibrillation: rate controlled Eliquis on hold 08/07/2023 resumed postoperatively. Amiodarone continued. Carvedilol continued. (4) DM (diabetes mellitus): Continue glargine 20 units a.m. and SSI Jardiance continued Glucose ACHS, goal [id number] Plan Discussed case with vascular surgery vascular surgery consult placed in the afternoon of [phone] Consulted wound care Ordered wound dressings Chronic stable issues: Hyponatremia. Chronic, mild. Trend daily. Continue sodium tablets. Anxiety: Continue home meds Hypertension: resumed entresto given elevated Blood pressure. Total Time Total Time Spent Total Time Spent (In Minutes): 32 Discharge Plan Discharge Items Patient Disposition: Transfer Jail Fac Reason For Visit: DFI Discharge Diagnosis: diabetic foot infection Activity: Resume your previous activity Non-emergency contact: Primary Care Provider Call non-emergency contact if: you have any medication questions Follow-up/Referrals: Elmer Fraire MD [Primary Care Provider] - Diet: Carb Consistent or DM2 and Heart Healthy Addtl Attending Provider Instructions: Discharge plan: - linezolid 600mg PO bid (can be stopped early with continued MRSA monotherapy with doxy if adverse effects noted) dual coverage for 3 weeks, start 08/07, eot 08/28 - doxycycline 100mg PO bid x 6 weeks (start 08/07, eot 09/18) - cefepime 2g IV q8h for CrCl > 60 (currently renally adjusted to q12h) x 6 weeks (start 08/07, eot 09/18) can be changed to ciprofloxacin 500mg PO bid after 2-3 weeks of IV therapy - metronidazole 500 PO q8h x 2 weeks (start 08/07, eot 08/21) - monitor weekly CBC w diff, CMP, ESR, CRP while on IV abx - follow up outpatient with either PCP or local ID provider To left first toe amputation site: irrigate with saline using 35 cc syringe and 18 g blunt needle.Fill with 1/4 Iodoform being sure to fill tunnel in wound bed that extends towards bottom of foot. Cover with gauze and securee with large kerlix. Change every day and as needed for drainage. Pending Studies at Discharge: No Stand-Alone Forms: [employer] Skilled Items Patient informed of condition?: No DNR: No Discharge Level of Care: Skilled Communicable Disease: No Discharge Prognosis: Stable Lines: PICC Urinary Catheter: No Medications and DC Order Prescriptions: New linezolid 600 mg tablet 600 mg PO BID Qty: 35 0RF metronidazole 500 mg Tablet 500 mg PO TID Qty: 31 0RF Rx Instructions: end of treatment 08/21 doxycycline hyclate 100 mg Capsule 100 mg PO BID Qty: 75 0RF Rx Instructions: end of treatment 09/18 cefepime 2 gram recon soln 2 g IV Q12H Qty: 40 0RF Rx Instructions: change to q8h for CrCl > 60 x 6 weeks can be changed to ciprofloxacin 500mg PO bid after 2-3 weeks of IV therapy Entresto 24-26 mg tablet 1 tab PO BID Qty: 60 0RF Continued atorvastatin [Lipitor] 80 mg Tablet 80 mg PO HS insulin glargine [Lantus U-100 Insulin] 100 unit/mL Solution 20 unit SUBCUT DAILY amiodarone 200 mg Tablet 200 mg PO DAILY amlodipine 2.5 mg Tablet 2.5 mg PO HS clopidogrel 75 mg tablet 75 mg PO QAM carvedilol 3.125 mg Tablet 3.125 mg PO BID Rx Instructions: must administer with a meal/food acetaminophen 650 mg Tablet Extended Release 650 mg PO QID pantoprazole [Protonix] 40 mg Tablet,Delayed Release (Dr/Ec) 40 mg PO DAILY ferrous sulfate 325 mg (65 mg iron) Tablet 325 mg PO 3XWK Rx Instructions: MON, WED, FRI metformin 1,000 mg tablet 1,000 mg PO BID gabapentin 300 mg Capsule 300 mg PO BID sertraline 25 mg Tablet 75 mg PO DAILY morphine 15 mg tablet extended release 15 mg PO Q12 furosemide 20 mg tablet 20 mg PO DAILY oxycodone 5 mg tablet 5 mg PO Q4 PRN (Reason: Pain) Humalog U-100 Insulin 100 unit/mL Cartridge 1 sliding scale dose SUBCUT USEASDIRECTD Rx Instructions: AC, HS SLIDING SCALE, 350-400 =8UNITS, 400-450= 12UNITS, 637=554 =16UNITS, 501-550= 18 UNITS , RECHECK IN 2 HRS. sodium chloride 1,000 mg Tablet,Soluble 1,000 mg PO AMHS Eliquis 5 mg Tablet 5 mg PO BID Jardiance 25 mg Tablet 25 mg PO DAILY Heparin Porcine Lock Flush 5 ml IV .Q SHIFT Protien Liquid 30 ml PO BID Discontinued Vancomycin Iv Solution 1.25 g IV DAILY Rx Instructions: until 08/18/23 Discharge Orders: Discharge Order (Routine); Ordered 08/12/23 Ordered By: Anibal Tobin Admission Data Admit Date/Time: 08/05/23 17:05 Attending Provider: Anibal Tobin Admit Provider: Ash Horne Primary Care Provider: Elmer Fraire Other Providers: Ash Horne; [place]; Bhavin Ambriz; Marixa Baldwin; Lia Gandhi; Krys Godinez; Angelina Mast; Kristyn Penaloza; Marian Delgado Other Interventions: Discharge Summary Assessment (RN) Last Done: 08/12/23 14:31 Coding Level of Care Code 27686 INP/OBS DISCH >30 MIN Diagnoses Diabetic infection of left foot E11.628; L08.9 Heart failure with ejection fraction improved from reduced range to preserved range I50.32 Atrial fibrillation I48.91 DM (diabetes mellitus) E11.9
== END 2023-08-12 15:02 | DRG 638 ==
LOC: ED 10:46 → SUATTDRO 17:05 → 3N 17:05

== ENCOUNTER 2023-08-30 22:12 | Inpatient (IN) ==
[2023-08-30] MEDS: DEXTROSE 50% 50 ML SYRINGE IV STA (22:42)
[2023-08-30 23:03] LABS: Basophils # (auto) 0.04 K/uL (0.00-0.20); Basophils % (auto) 0.5 %; Eosinophils # (auto) 0.03 K/uL (0.00-0.50); Eosinophils % (auto) 0.4 %; Hematocrit (blood only) 33.7 % (42.0-52.0); Hemoglobin 10.4 g/dl (14.0-18.0); Immature Granulocytes # (auto) 0.05 K/uL (0.01-0.20); Immature Granulocytes % (auto) 0.7 %; Lymphocytes # (auto) 1.41 K/uL (1.20-3.40); Lymphocytes % (auto) 18.9 %; Mean Corpuscular Hemoglobin 26.9 pg (25.0-34.0); Mean Corpuscular Hgb Conc 30.9 g/dL (32.0-36.0); Mean Corpuscular Volume 87.1 fL (80.0-100.0); Mean Platelet Volume 12.1 fL (9.4-12.4); Monocytes # (auto) 0.45 K/uL (0.11-0.59); Neutrophils % (auto) 73.5 %; Platelet Count 56 K/uL (130-400); RDW Coefficient of Variation 19.9 % (11.5-14.5); Red Blood Count 3.87 M/uL (4.70-6.10); White Blood Count 7.48 K/ul (4.8-10.8)
--- NOTE | 2023-08-30 23:13 | Emergency Department Note ---
Impression & Plan AMS (altered mental status), Hypoglycemia, Acute renal failure, Acute hyperkalemia, Hypomagnesemia, Elevated lactic acid level, Acidosis ED Provider Note HISTORY OF PRESENT ILLNESS: Patient is a 72-year-old male presenting with altered mental status and worsening kidney function. Patient was sent from [facility] rehab facility for reported altered mental status. Poor documentation from the staff at the facility, patient was "seen acutely for appearing pale with nausea and vomiting yesterday and poor appetite." Patient reportedly had a decline in his mental status throughout the day today and the facility finally decided to have him be evaluated. He also had laboratory workup this morning that showed his creatinine had risen significantly since previous lab work. Patient is at their facility for history of a left diabetic foot infection with MRSA bacteremia. Patient is on cefepime. On arrival to the ER, the patient had a fingerstick glucose of 54. He was given an amp of dextrose. On my assessment, the patient reports that he was shaky all day today. He has been nauseous and had an episode of vomiting yesterday. Denies any abdominal pain. Denies any chest pain or shortness of breath. He is alert to person only. He reports that he was feeling very shaky earlier this evening, but since the getting the dextrose he feels improved. Patient does report he has been making urine. Denies any dysuria. ROS: as above PHYSICAL EXAM: Constitutional: Patient appears in no acute distress. HENT: Head: Normocephalic and atraumatic. Eyes: EOMI, PERRL Mouth/Throat: Mucous membranes moist. Neck: Trachea midline. Neck supple. Cardiovascular: RRR, No murmurs, rubs or gallops. Intact distal pulses. Pulmonary/Chest: No respiratory distress. Breath sounds clear and equal bilaterally. No wheezes or rales. Abdominal: Abdomen soft, no tenderness, rebound or guarding. Musculoskeletal: - LLE: Amputated left great toe. Serosanguineous drainage from wound. Intact DP/PT pulses Skin: Warm and dry. No rash, erythema, pallor or cyanosis Psychiatric: Appropriate mood and affect for situation. Neurological: Alert and keenly responsive. CN II-XII grossly intact, moving all extremities equally and fully. MDM: - Vitals signs stable - History obtained via EMS, given patient's confusion. History as above. - Chronic conditions affecting care: HFrEF; CKD; Afib; osteomyelitis of left foot; CAD (S/p CABG); DM-2; hepatitic C virus; HTN - Differential diagnoses include, but are not limited to: CVA; intracranial hemorrhage; electrolyte abnormality; dehydration - Order placed for continuous cardiac monitoring. At this time, monitor showed rate of 88 bpm with normal sinus rhythm, per my interpretation. - External medical records reviewed. Discharge summary dated 08/12/2023 was reviewed. Patient was admitted at that time for diabetic infection of the left foot and bacteremia. Patient was discharged on linezolid until 08/28, doxycycline until 09/18, cefepime 2g until 09/18 and Flagyl 500 Q8 finished on 08/21. - EKG interpreted by myself showed normal sinus rhythm. Rate 82 bpm. QT 402. No acute ischemic changes. - Laboratory workup interpreted by myself showed normal WBC; hyperkalemia (K 3.4); elevated anion gap (12); elevated BUN (65); elevated creatinine (Cr 5.34); hypomagnesemia (Mg 1.2); hypocalcemia (Ca 8.2); hypoglycemia (glucose 53); normal troponin; slightly elevated procalcitonin (0.7); elevated lactate (3.8) - CXR negative for pneumonia or pulmonary edema, per my interpretation - VBG shows acidosis (pH 7.08) - Huizar catheter inserted and around 200 cc urine produced. Will monitor intake and output to monitor for aneuria in setting of renal failure - Patient given 2L NS. Given 1g IV calcium, dextrose and insulin for hyperkalemia. Given 1g IV magnesium for electrolyte replacement. - Discussion was had with counter caser about patient's case and need for admission - Hospitalist, Dr. Kenney, consulted for admission - Patient admitted to [facility] service for further evaluation and management. I have personally spent 43 minutes of critical care time in the direct management of this patient. This includes bedside care, interpretation of diagnostic studies, and testing, discussion with consultants, patient, and family members, and other required patient management activities. This 43 minutes is in excess of all separately billable procedures. ASSESSMENT AND PLAN: Diagnosis: Altered mental status; hypoglycemia; acute renal failure; acute hyperkalemia; hypomagnesemia; acidosis; elevated lactic acid level Plan: admit Past Med/Surg History Problem List (Updated 08/31/23 @ 01:11 by Fariha Mccarty MD) Acidosis (Acute) Elevated lactic acid level (Acute) Hypomagnesemia (Acute) Acute hyperkalemia (Acute) Acute renal failure (Acute) Hypoglycemia (Acute) AMS (altered mental status) (Acute) Osteomyelitis of foot, left, acute Cellulitis in diabetic foot (Acute) Anemia (Acute) Diabetic infection of left foot (Acute) Diabetic infection of left foot Wound infection Surgical wound, non healing Liver mass MRSA bacteremia Hyponatremia Supraventricular tachycardia Atrial fibrillation Multifocal pneumonia (Acute) Sepsis (Acute) Peripheral arterial disease with history of revascularization Ulcer of toe Diabetic foot ulcer Acute kidney injury superimposed on CKD 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 Heart failure with ejection fraction improved from reduced range to preserved range Anxiety (Acute) Anemia (Acute) hx GIB (gastrointestinal bleeding) (Acute) Chest pain (Acute) DVT prophylaxis Arterial occlusion, lower extremity (Acute) Medical History History of atrial fibrillation CAD (coronary artery disease) s/p CABG x 2 vessel June 2021 Acute HFrEF (heart failure with reduced ejection fraction) Follows with [facility] EF 50-55% per 05/2022 ECHO Cardiomyopathy Dyslipidemia Tobacco abuse smoke-12/day DM (diabetes mellitus) Atherosclerosis of artery of left lower extremity s/p left leg angiogram procedure with [employer] V[employer]UAL[employer]ATION CONSULTANT of proximal vein bypass 05/27/23 s/p left leg femoral artery to posterior tibial artery reverse saphenous vein bypass done at [facility] 02/2023 s/p left SFA and popliteal stents History of anemia History of anxiety History of alcohol abuse started 1965, quit 1999 Hx of drug abuse started 1965, quit 1999 "used every drug known to man">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, stayed in for 13 years IV drug abuse hx-quit in 1981 History of hepatitis B hx IV drug use Hepatitis C virus has had since the late s>no tx, "never had any trouble with it" Heart failure with mid-range ejection fraction Follows with [facility] EF 50-55% per 05/2022 ECHO Type 2 diabetes mellitus HTN (hypertension) Surgical History History of amputation of great toe S/P CABG x 2 ~2021, went to ER w/"anxiety," found to be in congestive heart failure, had more cardiac testing, sent for f/u w/[facility] cardio surgeon, done [facility]; f/u dr. mckeon Hx of cardiac catheterization 06/2021 [facility] History of open reduction and internal fixation (ORIF) procedure rt elbow and lt wrist>hardware intact Hx of colonoscopy History of left knee surgery 1988-tibial plateau reconstruction History of eye surgery retina History of cataract extraction rt/lt Social History Smoking Status: Former smoker Tobacco Type: Cigarettes Cigarettes Per Day: 6; Second Hand Exposure: No; Do You Dip or Chew Tobacco: No; Hx Alcohol Use: No Hx Substance Use: Yes Last Used Substance: Unknown Last Used Substance Other:: quit 1999-stated "used every drug known to man" Substance Use Type Other:: IV Drugs. Preferred Language: Vincentian Communication Ability: Effective Marking Clerk Required: No Beliefs That Will Affect Care: None Current Living Situation: Alone Current Living Situation Comment: [facility] for rehab until at least 08/18/23 current occupational status: disabled How many Children do You have: 1 Feels Safe at Home: Yes Assistive Devices: None Allergies Allergies Allergy/AdvReac Type Severity Reaction Status Date / Time cat dander Allergy Intermediate CONGESTION Verified 08/05/23 16:21 Home Meds Home Medications Medication Instructions Recorded Confirmed Heparin Porcine Lock Flush 5 ml IV .Q SHIFT 08/05/23 08/05/23 Protien Liquid 30 ml PO BID 08/05/23 08/05/23 acetaminophen 650 mg 650 mg PO QID 08/05/23 08/05/23 tablet,extended release amiodarone 200 mg tablet 200 mg PO DAILY 08/05/23 08/05/23 amlodipine 2.5 mg tablet 2.5 mg PO HS 08/05/23 08/05/23 apixaban 5 mg tablet (Eliquis) 5 mg PO BID 08/05/23 08/05/23 atorvastatin 80 mg tablet (Lipitor) 80 mg PO HS 08/05/23 08/05/23 carvedilol 3.125 mg tablet 3.125 mg PO BID 08/05/23 08/05/23 clopidogrel 75 mg tablet 75 mg PO QAM 08/05/23 08/05/23 empagliflozin 25 mg tablet 25 mg PO DAILY 08/05/23 08/05/23 (Jardiance) ferrous sulfate 325 mg (65 mg 325 mg PO 3XWK 08/05/23 08/05/23 iron) tablet furosemide 20 mg tablet 20 mg PO DAILY 08/05/23 08/05/23 gabapentin 300 mg capsule 300 mg PO BID 08/05/23 08/05/23 insulin glargine 100 unit/mL 20 unit subcut DAILY 08/05/23 08/08/23 subcutaneous solution (Lantus U-100 Insulin) insulin lispro 100 unit/mL 1 sliding scale dose subcut 08/05/23 08/05/23 subcutaneous cartridge (Humalog USEASDIRECTD U-100 Insulin) metformin 1,000 mg tablet 1,000 mg PO BID 08/05/23 08/05/23 morphine 15 mg tablet,extended 15 mg PO Q12 08/05/23 08/05/23 release oxycodone 5 mg tablet 5 mg PO Q4 PRN Pain 08/05/23 08/05/23 pantoprazole 40 mg tablet,delayed 40 mg PO DAILY 08/05/23 08/05/23 release (Protonix) sertraline 25 mg tablet 75 mg PO DAILY 08/05/23 08/05/23 sodium chloride 1,000 mg soluble 1,000 mg PO AMHS 08/05/23 08/05/23 tablet Previous Rx's Medication Instructions Recorded cefepime 2 gram solution for 2 g IV Q12H #40 ea 08/12/23 injection doxycycline hyclate 100 mg capsule 100 mg PO BID #75 caps 08/12/23 sacubitril 24 mg-valsartan 26 mg 1 tab PO BID #60 tabs 08/12/23 tablet (Entresto) Results & Data (ED) Vital Signs Vital Signs - 24 hr 08/30/23 22:20 08/30/23 22:20 08/30/23 22:54 Temperature 36.7 C Temperature Source Oral Pulse Rate 89 81 88 Pulse Rate from SpO2 Sensor Pulse Rhythm Regular Pulse Strength Normal Respiratory Rate 20 14 Respiratory Effort / Characteristics Non-Labored Spontaneous Respiratory Depth Normal Respiratory Pattern Regular Blood Pressure 133/66 117/52 L Blood Pressure Mean 88 73 Blood Pressure Position Lying Pulse Oximetry 98 Oxygen Delivery Method Room Air Sepsis Recent Fever Within 48 Hours No Sepsis New/Unexplained Change in Mental Status Yes Sepsis Action Taken by Nursing No Action Required 08/30/23 23:03 08/30/23 23:39 08/30/23 23:51 Temperature Temperature Source Pulse Rate 85 82 82 Pulse Rate from SpO2 Sensor 79 Pulse Rhythm Pulse Strength Respiratory Rate 16 16 17 Respiratory Effort / Characteristics Respiratory Depth Respiratory Pattern Blood Pressure 125/73 Blood Pressure Mean 90 Blood Pressure Position Pulse Oximetry 96 Oxygen Delivery Method Room Air Sepsis Recent Fever Within 48 Hours Sepsis New/Unexplained Change in Mental Status Sepsis Action Taken by Nursing 08/31/23 00:06 Temperature Temperature Source Pulse Rate 88 Pulse Rate from SpO2 Sensor 86 Pulse Rhythm Pulse Strength Respiratory Rate 19 Respiratory Effort / Characteristics Respiratory Depth Respiratory Pattern Blood Pressure 144/72 H Blood Pressure Mean 96 Blood Pressure Position Pulse Oximetry Oxygen Delivery Method Sepsis Recent Fever Within 48 Hours Sepsis New/Unexplained Change in Mental Status Sepsis Action Taken by Nursing Laboratory Data 08/30/23 22:30 08/30/23 22:30 Lab Results 08/30/23 08/30/23 08/30/23 Range/Units 22:17 22:30 22:59 WBC 7.48 (4.8-10.8) K/ul RBC 3.87 L (4.70-6.10) M/uL Hgb 10.4 L (14.0-18.0) g/dl Hct 33.7 L (42.0-52.0) % MCV 87.1 (80.0-100.0) fL MCH 26.9 (25.0-34.0) pg MCHC 30.9 L (32.0-36.0) g/dL RDW Std Deviation 62.0 H (36.4-46.3) fL RDW Coeff of Josh 19.9 H (11.5-14.5) % Plt Count 56 L (130-400) K/uL MPV 12.1 (9.4-12.4) fL Immature Gran % (Auto) 0.7 % Neut % (Auto) 73.5 % Lymph % (Auto) 18.9 % [place] % (Auto) 6.0 % Eos % (Auto) 0.4 % Baso % (Auto) 0.5 % Neut # (Auto) 5.50 (1.40-6.50) K/uL Lymph # (Auto) 1.41 (1.20-3.40) K/uL [place] # (Auto) 0.45 (0.11-0.59) K/uL Eos # (Auto) 0.03 (0.00-0.50) K/uL Baso # (Auto) 0.04 (0.00-0.20) K/uL Immature Gran # (Auto) 0.05 (0.01-0.20) K/uL PT 15.9 H (9.0-12.0) Seconds INR 1.5 H (0.9-1.1) APTT 30 (21-31) Seconds PTT Ratio 1.1 VBG pH (7.36-7.41) VBG pCO2 (38-50) mmHg VBG pO2 mmHg VBG HCO3 mmol/L VBG O2 Saturation % VBG Base Excess mEq/L Sodium 137 (136-145) mmol/L Potassium 5.4 H (3.5-5.1) mmol/L Chloride 111 H (98-107) mmol/L Carbon Dioxide 14 L (21-32) mmol/L Anion Gap 12 H (3-11) BUN 65 H (6-23) mg/dl Creatinine 5.34 H* D (0.6-1.4) mg/dl Est Cr Clr Drug Dosing 13.5 ml/min Est GFR ( Amer) 11.5 ml/min Est GFR (Non-Af Amer) 9.9 ml/min BUN/Creatinine Ratio 12.2 (10-20) Glucose 53 L* (70-99(Fasting)) mg/dl POC Glucose 54 L* 105 H (70-99) mg/dl Lactate (0.4-2.0) mmol/L Calcium 8.2 L (8.6-10.3) mg/dl Magnesium 1.2 L (1.7-2.4) mg/dl Total Bilirubin 0.4 (0.2-1.0) mg/dl AST 26 (13-39) U/L ALT 16 (7-52) U/L Alkaline Phosphatase 94 (34-104) U/L Troponin I High Sens 19.6 (0-20) pg/ml Total Protein 7.4 (6.0-8.3) gm/dl Albumin 3.4 (3.4-5.0) gm/dl Globulin 4.0 (2.5-4.0) gm/dl Albumin/Globulin Ratio 0.9 (0.9-2) Procalcitonin 0.70 H (0-0.5) ng/ml Urine Color Urine Appearance (Clear) Urine pH (4.5-7.5) Ur Specific [place] (1.000-1.030) Urine Protein (Negative) Urine Glucose (UA) (Negative) Urine Ketones (Negative) Urine Blood (Negative) Urine Nitrite (Negative) Urine Bilirubin (Negative) Urine Urobilinogen (Negative) Ur Leukocyte Esterase (Negative) 08/30/23 08/30/23 08/31/23 Range/Units 23:06 23:10 00:05 WBC (4.8-10.8) K/ul RBC (4.70-6.10) M/uL Hgb (14.0-18.0) g/dl Hct (42.0-52.0) % MCV (80.0-100.0) fL MCH (25.0-34.0) pg MCHC (32.0-36.0) g/dL RDW Std Deviation (36.4-46.3) fL RDW Coeff of Josh (11.5-14.5) % Plt Count (130-400) K/uL MPV (9.4-12.4) fL Immature Gran % (Auto) % Neut % (Auto) % Lymph % (Auto) % [place] % (Auto) % Eos % (Auto) % Baso % (Auto) % Neut # (Auto) (1.40-6.50) K/uL Lymph # (Auto) (1.20-3.40) K/uL [place] # (Auto) (0.11-0.59) K/uL Eos # (Auto) (0.00-0.50) K/uL Baso # (Auto) (0.00-0.20) K/uL Immature Gran # (Auto) (0.01-0.20) K/uL PT (9.0-12.0) Seconds INR (0.9-1.1) APTT (21-31) Seconds PTT Ratio VBG pH 7.08 L (7.36-7.41) VBG pCO2 42 (38-50) mmHg VBG pO2 50 mmHg VBG HCO3 13 mmol/L VBG O2 Saturation 82.2 % VBG Base Excess -17.0 mEq/L Sodium (136-145) mmol/L Potassium (3.5-5.1) mmol/L Chloride (98-107) mmol/L Carbon Dioxide (21-32) mmol/L Anion Gap (3-11) BUN (6-23) mg/dl Creatinine (0.6-1.4) mg/dl Est Cr Clr Drug Dosing ml/min Est GFR ( Amer) ml/min Est GFR (Non-Af Amer) ml/min BUN/Creatinine Ratio (10-20) Glucose (70-99(Fasting)) mg/dl POC Glucose (70-99) mg/dl Lactate 3.8 H* (0.4-2.0) mmol/L Calcium (8.6-10.3) mg/dl Magnesium (1.7-2.4) mg/dl Total Bilirubin (0.2-1.0) mg/dl AST (13-39) U/L ALT (7-52) U/L Alkaline Phosphatase (34-104) U/L Troponin I High Sens (0-20) pg/ml Total Protein (6.0-8.3) gm/dl Albumin (3.4-5.0) gm/dl Globulin (2.5-4.0) gm/dl Albumin/Globulin Ratio (0.9-2) Procalcitonin (0-0.5) ng/ml Urine Color Yellow Urine Appearance Cloudy A (Clear) Urine pH 5.0 (4.5-7.5) Ur Specific [place] 1.026 (1.000-1.030) Urine Protein 2+ H (Negative) Urine Glucose (UA) Negative (Negative) Urine Ketones 1+ H (Negative) Urine Blood Trace H (Negative) Urine Nitrite Negative (Negative) Urine Bilirubin Negative (Negative) Urine Urobilinogen Negative (Negative) Ur Leukocyte Esterase Negative (Negative) 08/31/23 Range/Units 00:55 WBC (4.8-10.8) K/ul RBC (4.70-6.10) M/uL Hgb (14.0-18.0) g/dl Hct (42.0-52.0) % MCV (80.0-100.0) fL MCH (25.0-34.0) pg MCHC (32.0-36.0) g/dL RDW Std Deviation (36.4-46.3) fL RDW Coeff of Josh (11.5-14.5) % Plt Count (130-400) K/uL MPV (9.4-12.4) fL Immature Gran % (Auto) % Neut % (Auto) % Lymph % (Auto) % [place] % (Auto) % Eos % (Auto) % Baso % (Auto) % Neut # (Auto) (1.40-6.50) K/uL Lymph # (Auto) (1.20-3.40) K/uL [place] # (Auto) (0.11-0.59) K/uL Eos # (Auto) (0.00-0.50) K/uL Baso # (Auto) (0.00-0.20) K/uL Immature Gran # (Auto) (0.01-0.20) K/uL PT (9.0-12.0) Seconds INR (0.9-1.1) APTT (21-31) Seconds PTT Ratio VBG pH (7.36-7.41) VBG pCO2 (38-50) mmHg VBG pO2 mmHg VBG HCO3 mmol/L VBG O2 Saturation % VBG Base Excess mEq/L Sodium (136-145) mmol/L Potassium (3.5-5.1) mmol/L Chloride (98-107) mmol/L Carbon Dioxide (21-32) mmol/L Anion Gap (3-11) BUN (6-23) mg/dl Creatinine (0.6-1.4) mg/dl Est Cr Clr Drug Dosing ml/min Est GFR ( Amer) ml/min Est GFR (Non-Af Amer) ml/min BUN/Creatinine Ratio (10-20) Glucose (70-99(Fasting)) mg/dl POC Glucose 71 (70-99) mg/dl Lactate (0.4-2.0) mmol/L Calcium (8.6-10.3) mg/dl Magnesium (1.7-2.4) mg/dl Total Bilirubin (0.2-1.0) mg/dl AST (13-39) U/L ALT (7-52) U/L Alkaline Phosphatase (34-104) U/L Troponin I High Sens (0-20) pg/ml Total Protein (6.0-8.3) gm/dl Albumin (3.4-5.0) gm/dl Globulin (2.5-4.0) gm/dl Albumin/Globulin Ratio (0.9-2) Procalcitonin (0-0.5) ng/ml Urine Color Urine Appearance (Clear) Urine pH (4.5-7.5) Ur Specific [place] (1.000-1.030) Urine Protein (Negative) Urine Glucose (UA) (Negative) Urine Ketones (Negative) Urine Blood (Negative) Urine Nitrite (Negative) Urine Bilirubin (Negative) Urine Urobilinogen (Negative) Ur Leukocyte Esterase (Negative) Administered Medications Discontinued Medications Dextrose (Dextrose 50% 50 Ml Syringe) 50 ml IV NOW STA Stop: 08/30/23 22:25 Last Admin: 08/30/23 22:42 Dose: 50 ml Documented By: WILLY Dextrose (Dextrose 50% 50 Ml Syringe) 50 ml IV NOW ONE Stop: 08/30/23 23:27 Last Admin: 08/31/23 00:56 Dose: 50 ml Documented By: ALEENA Sodium Chloride (Nss) 2,000 mls @ 999 mls/hr IV .Q2H1M ONE Stop: 08/31/23 01:08 Last Admin: 08/30/23 23:59 Dose: 999 mls/hr Documented By: SHELLIEL Calcium Gluconate () 1,000 mg in 60 mls @ 240 mls/hr IV NOW STA Stop: 08/30/23 23:40 Last Admin: 08/31/23 00:57 Dose: 240 mls/hr Documented By: ALEENA Insulin Human Regular (Novolin-R Insulin Per Unit Charge) 5 units IV NOW STA Stop: 08/30/23 23:27 Last Admin: 08/31/23 00:57 Dose: 5 units Documented By: ALEENA Co-signed By: WILLY Discharge Plan Visit Data Chief Complaint: Altered Mental Status Stated Complaint: ALTERED MENTAL STATUS TODAY, ABNORMAL LABS ED Provider: Fariha Mccarty Discharge Problem: AMS (altered mental status), Hypoglycemia, Acute renal failure, Acute hyperkalemia, Hypomagnesemia, Elevated lactic acid level, Acidosis Forms Stand Alone Forms: [facility] Prescriptions Prescriptions: No Action atorvastatin [Lipitor] 80 mg Tablet 80 mg PO HS insulin glargine [Lantus U-100 Insulin] 100 unit/mL Solution 20 unit SUBCUT DAILY amiodarone 200 mg Tablet 200 mg PO DAILY amlodipine 2.5 mg Tablet 2.5 mg PO HS clopidogrel 75 mg tablet 75 mg PO QAM carvedilol 3.125 mg Tablet 3.125 mg PO BID Rx Instructions: must administer with a meal/food acetaminophen 650 mg Tablet Extended Release 650 mg PO QID pantoprazole [Protonix] 40 mg Tablet,Delayed Release (Dr/Ec) 40 mg PO DAILY ferrous sulfate 325 mg (65 mg iron) Tablet 325 mg PO 3XWK Rx Instructions: MON, WED, FRI metformin 1,000 mg tablet 1,000 mg PO BID gabapentin 300 mg Capsule 300 mg PO BID sertraline 25 mg Tablet 75 mg PO DAILY morphine 15 mg tablet extended release 15 mg PO Q12 furosemide 20 mg tablet 20 mg PO DAILY oxycodone 5 mg tablet 5 mg PO Q4 PRN (Reason: Pain) Humalog U-100 Insulin 100 unit/mL Cartridge 1 sliding scale dose SUBCUT USEASDIRECTD Rx Instructions: AC, HS SLIDING SCALE, 350-400 =8UNITS, 400-450= 12UNITS, 306=117 =16UNITS, 501-550= 18 UNITS , RECHECK IN 2 HRS. sodium chloride 1,000 mg Tablet,Soluble 1,000 mg PO AMHS Eliquis 5 mg Tablet 5 mg PO BID Jardiance 25 mg Tablet 25 mg PO DAILY Heparin Porcine Lock Flush 5 ml IV .Q SHIFT Protien Liquid 30 ml PO BID doxycycline hyclate 100 mg Capsule 100 mg PO BID Qty: 75 0RF Rx Instructions: end of treatment 09/18 cefepime 2 gram recon soln 2 g IV Q12H Qty: 40 0RF Rx Instructions: change to q8h for CrCl > 60 x 6 weeks can be changed to ciprofloxacin 500mg PO bid after 2-3 weeks of IV therapy Entresto 24-26 mg tablet 1 tab PO BID Qty: 60 0RF Referrals Referrals: Elmer Fraire MD [Physician] -
[2023-08-30 23:24] LABS: Albumin Globulin Ratio 0.9 (0.9-2); Albumin Level 3.4 gm/dl (3.4-5.0); BUN Creatinine Ratio 12.2 (10-20); Bilirubin,Total 0.4 mg/dl (0.2-1.0); Calcium 8.2 mg/dl (8.6-10.3); Creatinine Clr Calc Pharmacy 13.5 ml/min; Est GFR (African American) 11.5 ml/min; Est GFR (Non-African American) 9.9 ml/min; Magnesium 1.2 mg/dl (1.7-2.4); Potassium 5.4 mmol/L (3.5-5.1); Total Protein 7.4 gm/dl (6.0-8.3)
[2023-08-30 23:40] LABS: INR 1.5 (0.9-1.1); Partial Thromboplastin Ratio 1.1; Partial Thromboplastin Time 30 Seconds (21-31); Prothrombin Time 15.9 Seconds (9.0-12.0)
[2023-08-30 23:45] LABS: HCO3 VBG 13 mmol/L; Oxygen Saturation VBG 82.2 %; PCO2 VBG 42 mmHg (38-50); PO2 VBG 50 mmHg; pH VBG 7.08 (7.36-7.41)
[2023-08-30] MEDS: SODIUM CHLORIDE 0.9% 2,000 ML IV ONE (23:59)
[2023-08-31 00:03] LABS: Troponin I High Sensitivity 19.6 pg/ml (0-20)
[2023-08-31 00:53] LABS: Appearance Urine Cloudy (Clear); Bacteria Urine Automated None Seen (None Seen); Bilirubin Urine Negative (Negative); Blood Urine Trace (Negative); Color Urine Yellow; Epithelial Cell Urine Auto 0-2 /hpf (0-2); Glucose Urine UA Negative (Negative); Ketones Urine 1+ (Negative); Leukocyte Esterase Urine Negative (Negative); Nitrite Urine Negative (Negative); Protein Urine 2+ (Negative); Specific Gravity Urine 1.026 (1.000-1.030); Urobilinogen Urine Negative (Negative); WBC Urine Automated 0-5 /hpf (0-5)
[2023-08-31] MEDS: DEXTROSE 50% 50 ML SYRINGE IV ONE (00:56)
[2023-08-31] MEDS: NovoLIN-R INSULIN PER UNIT CHARGE IV STA (00:57)
[2023-08-31] MEDS: CALCIUM GLUCONATE 1,000 MG/60 ML BAG IV STA (00:57)
[2023-08-31 01:21] LABS: Adenovirus PCR Not Detected (NotDetected); Bordetella parapertussis PCR Not Detected (NotDetected); Bordetella pertussis PCR Not Detected (NotDetected); Chlamydia pneumoniae PCR Not Detected (NotDetected); Coronavirus 229E PCR Not Detected (NotDetected); Coronavirus CoV-2 (COVID19)PCR Not Detected (NotDetected); Coronavirus HKU1 PCR Not Detected (NotDetected); Coronavirus NL63 PCR Not Detected (NotDetected); Coronavirus OC43PCR Not Detected (NotDetected); Human Metapneumovirus PCR Not Detected (NotDetected); Influenza A PCR Not Detected (NotDetected); Influenza B PCR Not Detected (NotDetected); Mycoplasma pneumoniae PCR Not Detected (NotDetected); Parainfluenza Virus 1 PCR Not Detected (NotDetected); Parainfluenza Virus 2 PCR Not Detected (NotDetected); Parainfluenza Virus 3 PCR Not Detected (NotDetected); Parainfluenza Virus 4 PCR Not Detected (NotDetected); Respiratory Syncytial VirusPCR Not Detected (NotDetected); Rhinovirus/Enterovirus PCR Not Detected (NotDetected)
--- NOTE | 2023-08-31 01:41 | History & Physical Report ---
Date of Service August 31, 2023 Assessment & Plan (1) Acute renal failure: Plan: 72yo male with history of CAD, DM, HTN, AF, recent MRSA bacteremia presenting from [facility] with metabolic encephalopathy/confusion as well as shaking. Patient found to have anion gapped metabolic acidosis in the setting on FLORECITA on CKD with elevated lactate as well. pH on VBG=7.08. HCO3=14, AG=12. BUN elevated at 65 an Cr=5.34 (was 58 and 3.96, respectively at 04:15 on 08/30/23). Suspect mostly pre-renal etiology - patient appears dry on clinical exam, hemoconcentrated on labs and reports decreased intake of late. Suspect patient's hypoglycemic episode may be secondary in part to decreased insulin clearance in setting of FLORECITA, poor oral intake, possible infection as well. Hyperkalemia with K=5.4. No EKG changes present. He has been treated with Insulin/D50 as well as calcium gluconate. IVF given as well. -Admit to medical with telemetry -Check CK, FeNA -Repeat chemistry and VBG -Continue IVF with LR at 100mL/hr -Avoid nephrotoxic agents -Renal dosing where needed -Will hold extended release morphine for now due to decreased renal clearance. Patient is typically on Morphine 15mg ER BID. Will cautiously continue Oxycodone 5mg po q 4 hours as needed for moderate or severe pain to avoid withdrawal -Will decreased Gabapentin from 300mg po AMHS to 100mg po AMHS for now (2) Hypoglycemia: Plan: Patient with hypoglycemia on arrival. He reports taking his insulin earlier today, did not eat much today. -Hold Lantus for now -ISS with goal blood sugar 110 - 140 (3) AMS (altered mental status): Plan: Improved encephalopathy with treatment of blood sugar (4) MRSA bacteremia: Plan: Patietn with diabetic infection of left foot. Noted to have MRSA POSITIVE bacteremia as well as osteomyelitis. Patient is compliant with his medication -Is to continue Doxycycline 100mg po BID until 09/19/2023 -Is to continue Cefepime 2gm IV q 8 hours until 09/19/23 Plan CAD - chronic. stable. no CP or evidence of cardiac ischemia -Continue Plavix -Continue Carvedilol -Continue Atorvastatin HTN - Chronic. -Continue Carvedilol and Amlodipine Depression/Anxiety - chronic -Continue Sertraline 75mg po daily Atrial Fibrillation - chronic. -Continue Amiodarone 200mg po daily -Continue History of Present Illness Chief Complaint: encephalopathy, feeling shaky Primary Care Provider: Emmanuel Huffman III, Cody Alvarez is a 72yo male with history of CAD s/p CABG x 2V, DM, HTN, HLP and AF on Eliquis anticoagulation presenting from [facility] with report of confusion and encephalopathy. Patient reports having some nausea earlier today. He did not eat well. In the evening he began feeling shaky and tremulous. He states he felt confused like he couldn't pay attention to what was going on around him or couldn't follow conversations. Patient did take his insulin today. Hypoglycemic on arrival with BSG=53. He was given Dextrose with improvement in blood sugar as well as improvement in his cognition and mental state. Recent admission to [facility] 07/12/23 - 07/31/23 after presenting with generalized weakness and worsening left great toe infection. Blood cultures during that hospitalization POSITIVE for MRSA. He had a transthoracic echocardiogram which did not reveal endocarditis. He was treated wt Daptomycin and Ceftaroline. He had a CT of the chest on 07/21/23 which revealed multilobar bilateral irregular centrally cavitary appearing nodules of consolidation concerning for possible necrotic pneumonia/septic emboli vs pulmonary metastasis. He had a REGINE performed on 07/27/23 which did not reveal endocarditis. Patient was transitioned to Vancomycin - end date 08/18/23. Patient did have an FLORECITA during his hospitalization - Cr peaked at 2.54 and improved to 1.35 on the day of discharge. He was given IV Venofer as well. ER Course: Insulin 5u + Dextrose 50mL NSS x 2L Dextrose 50mL Calcium gluconate 1000mg Allergies Allergy/AdvReac Type Severity Reaction Status Date / Time cat dander Allergy Intermediate CONGESTION Verified 08/05/23 16:21 Home Medications Medication Instructions Recorded Confirmed Type Heparin Porcine Lock Flush 5 ml IV .Q SHIFT 08/05/23 08/31/23 History acetaminophen 650 mg 650 mg PO TID 08/05/23 08/31/23 History tablet,extended release amiodarone 200 mg tablet 200 mg PO DAILY 08/05/23 08/31/23 History amlodipine 2.5 mg tablet 2.5 mg PO HS 08/05/23 08/31/23 History atorvastatin 80 mg tablet (Lipitor) 80 mg PO HS 08/05/23 08/31/23 History carvedilol 3.125 mg tablet 3.125 mg PO BID 08/05/23 08/31/23 History clopidogrel 75 mg tablet 75 mg PO QAM 08/05/23 08/31/23 History ferrous sulfate 325 mg (65 mg 325 mg PO 3XWK 08/05/23 08/31/23 History iron) tablet gabapentin 300 mg capsule 300 mg PO AMHS 08/05/23 08/31/23 History insulin glargine 100 unit/mL 10 unit subcut DAILY 08/05/23 08/31/23 History subcutaneous solution (Lantus U-100 Insulin) insulin lispro 100 unit/mL 1 sliding scale dose subcut 08/05/23 08/31/23 History subcutaneous cartridge (Humalog USEASDIRECTD U-100 Insulin) morphine 15 mg tablet,extended 15 mg PO Q12 08/05/23 08/31/23 History release oxycodone 5 mg tablet 5 mg PO Q4 PRN mod or severe pain 08/05/23 08/31/23 History sertraline 25 mg tablet 75 mg PO DAILY 08/05/23 08/31/23 History sodium chloride 1,000 mg soluble 1,000 mg PO AMHS 08/05/23 08/31/23 History tablet Med Pass 120 ml PO BID 08/31/23 08/31/23 History Saccharomyces boulardii 250 mg 250 mg PO TID 08/31/23 08/31/23 History capsule (Florastor) cefepime 2 gram solution for 2 g IV DAILY 08/31/23 08/31/23 History injection doxycycline hyclate 100 mg capsule 100 mg PO Q12 08/31/23 08/31/23 History loperamide 2 mg tablet (Imodium 2 mg PO Q4H PRN Diarrhea 08/31/23 08/31/23 History A-D) omeprazole 20 mg capsule,delayed 20 mg PO AMHS 08/31/23 08/31/23 History release ondansetron 4 mg disintegrating 4 mg PO Q6H PRN Nausea And Vomiting 08/31/23 08/31/23 History tablet promethazine 25 mg/mL injection 25 mg IM Q6H PRN n/v if 08/31/23 08/31/23 History solution ondansetron ineffective protein supplement 1 ea PO BID 08/31/23 08/31/23 History sodium chloride 0.9 % (flush) 10 ml IV QS 08/31/23 08/31/23 History Past Med/Surg History Problem List Acidosis (Acute) Elevated lactic acid level (Acute) Hypomagnesemia (Acute) Acute hyperkalemia (Acute) Acute renal failure (Acute) Hypoglycemia (Acute) AMS (altered mental status) (Acute) Osteomyelitis of foot, left, acute Cellulitis in diabetic foot (Acute) Anemia (Acute) Diabetic infection of left foot (Acute) Diabetic infection of left foot Wound infection Surgical wound, non healing Liver mass MRSA bacteremia Hyponatremia Supraventricular tachycardia Atrial fibrillation Multifocal pneumonia (Acute) Sepsis (Acute) Peripheral arterial disease with history of revascularization Ulcer of toe Diabetic foot ulcer Acute kidney injury superimposed on CKD 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 Heart failure with ejection fraction improved from reduced range to preserved range Anxiety (Acute) Anemia (Acute) hx GIB (gastrointestinal bleeding) (Acute) Chest pain (Acute) DVT prophylaxis Arterial occlusion, lower extremity (Acute) Medical History History of atrial fibrillation CAD (coronary artery disease) s/p CABG x 2 vessel June 2021 Acute HFrEF (heart failure with reduced ejection fraction) Follows with [facility] EF 50-55% per 05/2022 ECHO Cardiomyopathy Dyslipidemia Tobacco abuse smoke-12/day DM (diabetes mellitus) Atherosclerosis of artery of left lower extremity s/p left leg angiogram procedure with [employer]PER[employer] of proximal vein bypass 05/27/23 s/p left leg femoral artery to posterior tibial artery reverse saphenous vein [place] [facility] [place]/p left SFA and popliteal stents History of anemia History of anxiety History of alcohol abuse started 1965, quit 1999 Hx of drug abuse started 1965, quit 1999 "used every drug known to man">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, stayed in for 13 years IV drug abuse hx-quit in 1981 History of hepatitis B hx IV drug use Hepatitis C virus has had since the late >no tx, "never had any trouble with it" Heart failure with mid-range ejection fraction Follows with [facility] EF 50-55% per 05/2022 ECHO Type 2 diabetes mellitus HTN (hypertension) Surgical History History of amputation of great toe S/P CABG x ~2021, went to ER w/"anxiety," found to be in congestive heart failure, had more cardiac testing, sent for f/u w/s cardio surgeon, done @[facility]; f/u dr. mckeon Hx of cardiac catheterization 06/2021 [facility] History of open reduction and internal fixation (ORIF) procedure rt elbow and lt wrist>hardware intact Hx of colonoscopy History of left knee surgery 1988-tibial plateau reconstruction History of eye surgery retina History of cataract extraction rt/lt Social History Smoking Status: Former smoker Tobacco Type: Cigarettes Cigarettes Per Day: 6; Second Hand Exposure: No; Do You Dip or Chew Tobacco: No; Hx Alcohol Use: No Hx Substance Use: Yes Last Used Substance: Unknown Last Used Substance Other:: quit 1999-stated "used every drug known to man" Substance Use Type Other:: IV Drugs. 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 Required: No Beliefs That Will Affect Care: None Current Living Situation: Alone Current Living Situation Comment: [facility] for rehab until at least 08/18/23 current occupational status: disabled How many Children do You have: 1 Feels Safe at Home: Yes Assistive Devices: None Review of Systems Review of Systems: All systems reviewed & are unremarkable except as noted in HPI & below Physical Exam Physical Exam: General: patient resting comfortably, NAD, non-toxic in appearance, slow to answer questions Skin: left foot wound dresed HEENT: NC/AT, PERRL, EOMI, anicteric sclera, conjunctiva without injection, external ear normal to inspection and nontender, nares patent, dry mucus membranes, dentition intact, no oropharyngeal lesions, neck supple, trachea midline, no LAD, no thyromegaly, no JVD Heart: +S1/S2, regular, no m/r/g Lungs: equal air entry bilaterally, no rales/rhonchi/wheezes Abd: +BS, soft, NT/ND, no masses/organomegaly/ascites Ext: warm, 2+ pulses in UE/LE bilaterally, no clubbing/cyanosis or edema, left foot wound dressed with some serosanguinous drainage on bandage Neuro: nonfocal, patient AA&O x 4, speech slow but appropriate, no facial droop, moving all extremities on command with equal strength 5/5 Results & Data Results & Data Vital Signs (Past 12 Hours) Vital Signs Temp Pulse Resp BP Pulse Ox O2 Del Method 08/31/23 00:06 88 19 144/72 H 08/30/23 23:51 82 17 96 Room Air 08/30/23 23:39 82 16 08/30/23 23:03 85 16 125/73 08/30/23 22:54 88 14 117/52 L 08/30/23 22:20 81 08/30/23 22:20 36.7 C 89 20 133/66 98 Room Air Laboratory Results Laboratory Results WBC 7.48 K/ul (4.8-10.8) 08/30/23 22:30 RBC 3.87 M/uL (4.70-6.10) L 08/30/23 22:30 Hgb 10.4 g/dl (14.0-18.0) L 08/30/23 22:30 Hct 33.7 % (42.0-52.0) L 08/30/23 22:30 MCV 87.1 fL (80.0-100.0) 08/30/23 22:30 MCH 26.9 pg (25.0-34.0) 08/30/23 22:30 MCHC 30.9 g/dL (32.0-36.0) L 08/30/23 22:30 RDW Std Deviation 62.0 fL (36.4-46.3) H 08/30/23 22:30 RDW Coeff of Josh 19.9 % (11.5-14.5) H 08/30/23 22:30 Plt Count 56 K/uL (130-400) L 08/30/23 22:30 MPV 12.1 fL (9.4-12.4) 08/30/23 22:30 Immature Gran % (Auto) 0.7 % 08/30/23 22:30 Neut % (Auto) 73.5 % 08/30/23 22:30 Lymph % (Auto) 18.9 % 08/30/23 22:30 Banner % (Auto) 6.0 % 08/30/23 22:30 Eos % (Auto) 0.4 % 08/30/23 22:30 Baso % (Auto) 0.5 % 08/30/23 22:30 Neut # (Auto) 5.50 K/uL (1.40-6.50) 08/30/23 22: Lymph # (Auto) 1.41 K/uL (1.20-3.40) 08/30/23 22:30 Banner # (Auto) 0.45 K/uL (0.11-0.59) 08/30/23 22:30 Eos # (Auto) 0.03 K/uL (0.00-0.50) 08/30/23 22:30 Baso # (Auto) 0.04 K/uL (0.00-0.20) 08/30/23 22:30 Immature Gran # (Auto) 0.05 K/uL (0.01-0.20) 08/30/23 22:30 PT 15.9 Seconds (9.0-12.0) H 08/30/23 22:30 INR 1.5 (0.9-1.1) H 08/30/23 22:30 APTT 30 Seconds (21-31) 08/30/23 22:30 PTT Ratio 1.1 08/30/23 22:30 VBG pH 7.08 (7.36-7.41) L 08/30/23 23:06 VBG pCO2 42 mmHg (38-50) 08/30/23 23:06 VBG pO2 50 mmHg 08/30/23 23:06 VBG HCO3 13 mmol/L 08/30/23 23:06 VBG O2 Saturation 82.2 % 08/30/23 23:06 VBG Base Excess -17.0 mEq/L 08/30/23 23:06 Sodium 137 mmol/L (136-145) 08/30/23 22:30 Potassium 5.4 mmol/L (3.5-5.1) H 08/30/23 22:30 Chloride 111 mmol/L (98-107) H 08/30/23 22:30 Carbon Dioxide 14 mmol/L (21-32) L 08/30/23 22:30 Anion Gap 12 (3-11) H 08/30/23 22:30 BUN 65 mg/dl (6-23) H 08/30/23 22:30 Creatinine 5.34 mg/dl (0.6-1.4) H* D 08/30/23 22:30 Est Cr Clr Drug Dosing 13.5 ml/min 08/30/23 22:30 Est GFR ( Amer) 11.5 ml/min 08/30/23 22:30 Est GFR (Non-Af Amer) 9.9 ml/min 08/30/23 22:30 BUN/Creatinine Ratio 12.2 (10-20) 08/30/23 22:30 Glucose 53 mg/dl (70-99(Fasting)) L* 08/30/23 22:30 POC Glucose 70 mg/dl (70-99) 08/31/23 02:00 Lactate 3.8 mmol/L (0.4-2.0) H* 08/30/23 23:10 Calcium 8.2 mg/dl (8.6-10.3) L 08/30/23 22:30 Magnesium 1.2 mg/dl (1.7-2.4) L 08/30/23 22:30 Total Bilirubin 0.4 mg/dl (0.2-1.0) 08/30/23 22:30 AST 26 U/L (13-39) 08/30/23 22:30 ALT 16 U/L (7-52) 08/30/23 22:30 Alkaline Phosphatase 94 U/L (34-104) 08/30/23 22:30 Troponin I High Sens 19.6 pg/ml (0-20) 08/30/23 22:30 Total Protein 7.4 gm/dl (6.0-8.3) 08/30/23 22:30 Albumin 3.4 gm/dl (3.4-5.0) 08/30/23 22:30 Globulin 4.0 gm/dl (2.5-4.0) 08/30/23 22:30 Albumin/Globulin Ratio 0.9 (0.9-2) 08/30/23 22:30 Procalcitonin 0.70 ng/ml (0-0.5) H 08/30/23 22:30 Urine Color Yellow 08/31/23 00:05 Urine Appearance Cloudy (Clear) A 08/31/23 00:05 Urine pH 5.0 (4.5-7.5) 08/31/23 00:05 Ur Specific Ramona 1.026 (1.000-1.030) 08/31/23 00:05 Urine Protein 2+ (Negative) H 08/31/23 00:05 Urine Glucose (UA) Negative (Negative) 08/31/23 00:05 Urine Ketones 1+ (Negative) H 08/31/23 00:05 Urine Blood Trace (Negative) H 08/31/23 00:05 Urine Nitrite Negative (Negative) 08/31/23 00:05 Urine Bilirubin Negative (Negative) 08/31/23 00:05 Urine Urobilinogen Negative (Negative) 08/31/23 00:05 Ur Leukocyte Esterase Negative (Negative) 08/31/23 00:05 Urine WBC (Auto) 0-5 /hpf (0-5) 08/31/23 00:05 Urine RBC (Auto) 3-5 /hpf (0-2) H 08/31/23 00:05 U Hyaline Cast (Auto) 3-5 /lpf (0-2) H 08/31/23 00:05 U Epithel Cells (Auto) 0-2 /hpf (0-2) 08/31/23 00:05 Urine Bacteria (Auto) None Seen (None Seen) 08/31/23 00:05 Adenovirus (PCR) Not Detected (NotDetected) 08/31/23 00:10 B. pertussis DNA (PCR) Not Detected (NotDetected) 08/31/23 00:10 B.parapertussis DNA PCR Not Detected (NotDetected) 08/31/23 00:10 C. pneumoniae DNA (PCR) Not Detected (NotDetected) 08/31/23 00:10 Coronavirus OC43 (PCR) Not Detected (NotDetected) 08/31/23 00:10 Coronavirus HKU1 (PCR) Not Detected (NotDetected) 08/31/23 00:10 Coronavirus 229E (PCR) Not Detected (NotDetected) 08/31/23 00:10 SARS-CoV-2 (PCR) Not Detected (NotDetected) 08/31/23 00:10 Coronavirus NL63 (PCR) Not Detected (NotDetected) 08/31/23 00:10 Human Metapneumovir PCR Not Detected (NotDetected) 08/31/23 00:10 Influenza Type A (PCR) Not Detected (NotDetected) 08/31/23 00:10 Influenza Type B (PCR) Not Detected (NotDetected) 08/31/23 00:10 M. pneumoniae (PCR) Not Detected (NotDetected) 08/31/23 00:10 Parainfluenza 1 (PCR) Not Detected (NotDetected) 08/31/23 00:10 Parainfluenza 2 (PCR) Not Detected (NotDetected) 08/31/23 00:10 Parainfluenza 3 (PCR) Not Detected (NotDetected) 08/31/23 00:10 Parainfluenza 4 (PCR) Not Detected (NotDetected) 08/31/23 00:10 RSV (PCR) Not Detected (NotDetected) 08/31/23 00:10 Entero/Rhino (PCR) Not Detected (NotDetected) 08/31/23 00:[address] 08/30/23 23:18 Exam(s): CT HEAD Without Contrast EXAM: CT Head Without Intravenous Contrast CLINICAL HISTORY: Reason for exam: confusion. TECHNIQUE: Axial computed tomography images of the head/brain without intravenous contrast. Automated exposure control was utilized for the study. A dose lowering technique was utilized adhering to the principles of ALARA. COMPARISON: No relevant prior studies available. FINDINGS: No acute intracranial hemorrhage. No midline shift or mass effect. The territorial mac-white matter differentiation is maintained throughout. Age-related cerebral volume loss. Periventricular and subcortical white matter hypoattenuation, consistent with chronic microangiopathy. The visualized orbits appear grossly unremarkable. The calvarium is intact. The visualized paranasal sinuses and mastoid air cells are grossly clear. IMPRESSION: No acute intracranial hemorrhage, midline shift, or mass effect. Electronically signed by: Jony Faulkner MD 08/31/23 01:38 AM PG Care Time/CCT Total # of Minutes Spent Total Time Spent with Patient: Total time spent is greater than 50% in coordination of care (as documented) at patient's floor/unit and/or counseling patient: Coding Level of Care Code 07809 INT INP/OBS CARE 3/75MIN Diagnoses Acute renal failure N17.9 Hypoglycemia E16.2 AMS (altered mental status) R41.82 MRSA bacteremia R78.81; B95.62
[2023-08-31] MEDS: MAGNESIUM SULFATE / D5W 1 GM/100 ML BAG IV STA (01:51)
[2023-08-31] MEDS ORDERED: GLUCOSE 40% GEL 15 GM TUBE PO PRN ×2 (03:15)
[2023-08-31] MEDS ORDERED: ACETAMINOPHEN 325 MG TAB PO PRN (03:15)
[2023-08-31] MEDS ORDERED: oxyCODONE HCL IR 5 MG TAB (IMMEDIATE RELEASE) PO PRN (03:15)
[2023-08-31] MEDS ORDERED: GLUCOSE 10 TAB/TUBE PO PRN ×2 (03:15)
[2023-08-31] MEDS ORDERED: DEXTROSE 50% 50 ML SYRINGE IV PRN (03:15)
[2023-08-31] MEDS ORDERED: GLUCAGON FOR INJ 1 MG VIAL SQ PRN ×2 (03:15)
[2023-08-31] MEDS ORDERED: CARBOHYDRATES FOR HYPOGLYCEMIA PO PRN ×2 (03:15)
[2023-08-31] MEDS: LACTATED RINGER'S 1,000 ML IV SCH (03:54)
[2023-08-31] MEDS: MAGNESIUM SULFATE / D5W 1 GM/100 ML BAG IV SCH (03:55)
[2023-08-31] MEDS: DEXTROSE 50% 50 ML SYRINGE IV PRN (04:06)
[2023-08-31] MEDS: CEFEPIME 2,000 MG in SYRINGE 0 ML IV ONE (04:28)
[2023-08-31 06:13] LABS: Base Excess VBG -16.4 mEq/L; HCO3 VBG 12 mmol/L; Oxygen Saturation VBG 83.3 %; PCO2 VBG 39 mmHg (38-50); PO2 VBG 46 mmHg; pH VBG 7.11 (7.36-7.41)
[2023-08-31] MEDS: D5W AND LACTATED RINGERS 1,000 ML IV SCH (06:29)
[2023-08-31 06:54] LABS: Anion Gap 12 (3-11); BUN Creatinine Ratio 12.4 (10-20); Blood Urea Nitrogen 67 mg/dl (6-23); C Reactive Protein < 0.50 mg/dl (0-0.5); Calcium 7.6 mg/dl (8.6-10.3); Carbon Dioxide 12 mmol/L (21-32); Chloride 113 mmol/L (98-107); Creatine Kinase 186 U/L (30-223); Creatinine Clr Calc Pharmacy 13.4 ml/min; Est GFR (African American) 11.4 ml/min; Est GFR (Non-African American) 9.8 ml/min; Glucose 107 mg/dl (70-99(Fasting)); Potassium 4.8 mmol/L (3.5-5.1); Sodium 137 mmol/L (136-145); Thyroid Stimulating Hormone 6.732 uIu/ml (0.300-4.500)
[2023-08-31 07:31] LABS: T4 Free Thyroxine 0.98 ng/dl (0.61-1.60)
--- NOTE | 2023-08-31 07:47 | XRay Report ---
XR chest 1V not portable HISTORY: illness COMPARISON: Chest 07/20/2023. FINDINGS: No pneumothorax. No pleural effusions. The cardiac silhouette is top normal in size. There are poststernotomy changes. A right PICC terminates in the SVC. No acute fractures. Scattered pulmona ry nodules seen on the recent chest CT may have slightly improved. IMPRESSION: 1. Scattered pulmonary nodules seen on the recent chest CT appear to have slightly improved. 2. No new focal lung consolidations. 3. A right PICC terminates in the SVC. ACT 112: Negative or not required by law. Electronically signed by: Vaibhav Adams M.D. 08/31/2023 7:46 AM
[2023-08-31] MEDS: INSULIN ASPART PER UNIT CHARGE SC SCH (09:12)
[2023-08-31] MEDS: ONDANSETRON INJ 2 MG/ML 2 ML VIAL IV PRN (09:22)
[2023-08-31] MEDS: AMIODARONE 200 MG TAB PO SCH (09:24)
[2023-08-31] MEDS: DOXYCYCLINE HYCLATE 100 MG CAP PO SCH (09:24)
[2023-08-31] MEDS: CLOPIDOGREL BISULFATE 75 MG TAB PO SCH (09:24)
[2023-08-31] MEDS: carvediloL 3.125 MG TAB PO SCH (09:24)
[2023-08-31] MEDS: PANTOprazole 40 MG TAB PO SCH (09:25)
[2023-08-31] MEDS: SODIUM CHLORIDE 1 GM TABLET PO SCH (09:25)
[2023-08-31] MEDS: GABAPENTIN 100 MG CAP PO SCH (09:25)
[2023-08-31] MEDS: SERTRALINE HCL 50 MG TABLET PO SCH (09:25)
[2023-08-31] MEDS: SODIUM BICARBONATE 8.4% 150 MEQ in DEXTROSE 5% 1,000 ML IV SCH (10:26)
--- NOTE | 2023-08-31 10:27 | Nephrology Consultation ---
Date of Consultation August 31, 2023 Assessment & Plan (1) Acute renal failure: (2) Acute hyperkalemia: (3) Hypomagnesemia: (4) Acidosis: (5) AMS (altered mental status): (6) Anemia: Plan 72-year-old gentleman with stage III B CKD, b/l cr 1.5-1.6 mg/dl, chronic mild hyponatremia, hypertension, diabetes, coronary artery disease, CHF, admitted with AMS, FLORECITA. Urinalysis with low-grade proteinuria and microscopic hematuria. Currently on cefepime and doxycycline which he has been for few weeks for left foot osteomyelitis. On admission creatinine was 4.0 which rapidly worsened to 5.4 this morning. Potassium improved to 4.8 and bicarb remains low at 12. --Considering rapid worsening of kidney function, will get a renal ultrasound --Continue bicarb drip, monitor kidney function, electrolyte, intake and output --Agree with stopping cefepime and starting on ciprofloxacin as previously recommended by ID -- Hold gabapentin for now --dose meds for eGFR <10 Thank you for allowing me to participate in your patient's care. It was a pleasure to see Cody. History of Present Illness Reason for Consultation: Acute kidney injury, metabolic acidosis, altered mental status. Attending Physician: Wendie Lassiter MD History of Present Illness Mr. Cody Alvarez is a 72-year-old male with PMH of stage 3B CKD, HTN, DM, CAD, CHF, PAD admitted to the hospital with AMS, FLORECITA. Nephrology consult requested for management of hyponatremia. EMR records are reviewed in detail during patient's visit. Mr. Hester Was quite confused during visit and did not communicate well or answer any questions. Most of the records are from EMR review. Cody was admitted on 08/31/23 after he was brought from [facility] with confusion and encephalopathy. He was last admitted to hospital from 07/12/23 - 07/31/23 after presenting with generalized weakness and left great toe diabetic ulcer and infection with culture growing MRSA. He was discharged on doxycycline and cefepime 1 g every 12 hours to be continued until 09/19/2023. He did have FLORECITA during that hospitalization and his creatinine peaked at 2.5 which improved to 1.4 on the day of discharge. He was reported to have some nausea, poor p.o. intake and some tremor and shakiness. On admission his blood sugar was 53, given dextrose with improvement in blood sugar. Lab on admission was notable for creatinine of 4.0, bicarb 14, potassium of 5.4. Urinalysis with low-grade proteinuria and microscopic hematuria with 3-5 RBCs/HPF. Initially received norm al saline in ER and now continued on sodium bicarbonate drip. He was also continued on cefepime and doxycycline. Urine output was low at only 300 mL since admission. Chest x-ray and CT head was unremarkable. Renal imaging was not done during this admission but during last admission imaging was otherwise unremarkable. Past medical history is significant for stage III B CKD baseline creatinine 1.5- 1.6 mg/dl, history of poorly controlled diabetes, recent A1c 12, hypertension, coronary artery disease s/p CABG, cardiomyopathy, CHF, dyslipidemia, tobacco abuse. History of anemia with iron deficiency, received Venofer during last admission. During visit he was quite confused, could not communicate any meaningful way although he was awake and alert. He did complain of having shaking. Otherwise looked comfortable, no respiratory distress. Allergies Allergy/AdvReac Type Severity Reaction Status Date / Time cat dander Allergy Intermediate CONGESTION Verified 08/05/23 16:21 Home Medications Medication Instructions Recorded Confirmed Type Heparin Porcine Lock Flush 5 ml IV .Q SHIFT 08/05/23 08/31/23 History acetaminophen 650 mg 650 mg PO TID 08/05/23 08/31/23 History tablet,extended release amiodarone 200 mg tablet 200 mg PO DAILY 08/05/23 08/31/23 History amlodipine 2.5 mg tablet 2.5 mg PO HS 08/05/23 08/31/23 History atorvastatin 80 mg tablet (Lipitor) 80 mg PO HS 08/05/23 08/31/23 History carvedilol 3.125 mg tablet 3.125 mg PO BID 08/05/23 08/31/23 History clopidogrel 75 mg tablet 75 mg PO QAM 08/05/23 08/31/23 History ferrous sulfate 325 mg (65 mg 325 mg PO 3XWK 08/05/23 08/31/23 History iron) tablet gabapentin 300 mg capsule 300 mg PO AMHS 08/05/23 08/31/23 History insulin glargine 100 unit/mL 10 unit subcut DAILY 08/05/23 08/31/23 History subcutaneous solution (Lantus U-100 Insulin) insulin lispro 100 unit/mL 1 sliding scale dose subcut 08/05/23 08/31/23 History subcutaneous cartridge (Humalog USEASDIRECTD U-100 Insulin) morphine 15 mg tablet,extended 15 mg PO Q12 08/05/23 08/31/23 History release oxycodone 5 mg tablet 5 mg PO Q4 PRN mod or severe pain 08/05/23 08/31/23 History sertraline 25 mg tablet 75 mg PO DAILY 08/05/23 08/31/23 History sodium chloride 1,000 mg soluble 1,000 mg PO AMHS 08/05/23 08/31/23 History tablet Med Pass 120 ml PO BID 08/31/23 08/31/23 History Saccharomyces boulardii 250 mg 250 mg PO TID 08/31/23 08/31/23 History capsule (Florastor) cefepime 2 gram solution for 2 g IV DAILY 08/31/23 08/31/23 History injection doxycycline hyclate 100 mg capsule 100 mg PO Q12 08/31/23 08/31/23 History loperamide 2 mg tablet (Imodium 2 mg PO Q4H PRN Diarrhea 08/31/23 08/31/23 History A-D) omeprazole 20 mg capsule,delayed 20 mg PO AMHS 08/31/23 08/31/23 History release ondansetron 4 mg disintegrating 4 mg PO Q6H PRN Nausea And Vomiting 08/31/23 08/31/23 History tablet promethazine 25 mg/mL injection 25 mg IM Q6H PRN n/v if 08/31/23 08/31/23 History solution ondansetron ineffective protein supplement 1 ea PO BID 08/31/23 08/31/23 History sodium chloride 0.9 % (flush) 10 ml IV QS 08/31/23 08/31/23 History Patient History Medical History History of atrial fibrillation CAD (coronary artery disease) s/p CABG x 2 vessel June 2021 Acute HFrEF (heart failure with reduced ejection fraction) Follows with [facility] EF 50-55% per 05/2022 ECHO Cardiomyopathy Dyslipidemia Tobacco abuse smoke-12/day DM (diabetes mellitus) Atherosclerosis of artery of left lower extremity s/p left leg angiogram procedure with [facility] MEDICAL TECHNICIAN of proximal vein bypass 05/27/23 s/p left leg femoral artery to posterior tibial artery reverse saphenous vein bypass [place] [facility] [place] s/p left SFA and popliteal stents History of anemia History of anxiety History of alcohol abuse started 1965, quit 1999 Hx of drug abuse started 1965, quit 1999 "used every drug known to man">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, stayed in for 13 years IV drug abuse hx-quit in 1981 History of hepatitis B hx IV drug use Hepatitis C virus has had since the late >no tx, "never had any trouble with it" Heart failure with mid-range ejection fraction Follows with [facility] EF 50-55% per 05/2022 ECHO Type 2 diabetes mellitus HTN (hypertension) Surgical History History of amputation of great toe S/P CABG x ~2021, went to ER w/"anxiety," found to be in congestive heart failure, had more cardiac testing, sent for f/u w/[facility] cardio surgeon, [facility]; f/u dr. mckeon Hx of cardiac catheterization 06/2021 [facility] History of open reduction and internal fixation (ORIF) procedure rt elbow and lt wrist>hardware intact Hx of colonoscopy History of left knee surgery 1988-tibial plateau reconstruction History of eye surgery retina History of cataract extraction rt/lt Social History Smoking Status: Former smoker Tobacco Type: Cigarettes Cigarettes Per Day: 6; Second Hand Exposure: No; Do You Dip or Chew Tobacco: No; Hx Alcohol Use: Yes Hx Substance Use: Yes Last Used Substance: Unknown Last Used Substance Other:: quit 1999-stated "used every drug known to man" Substance Use Type Other:: IV Drugs. Preferred Language: Beninese Communication Ability: Effective Correctional Therapy Teacher Required: No Beliefs That Will Affect Care: None Current Living Situation: Other Current Living Situation Comment: Julio residing @ [facility] current occupational status: disabled How many Children do You have: 1 Feels Safe at Home: Yes Assistive Devices: None Review of Systems Review of Systems: Detailed review of system was not possible because of the mental status. Physical Exam Constitutional: WD/WN, vitals as above + ill appearing and + altered mental status; no acute distress Neck: normal visual inspection Respiratory: Auscultation: lungs clear to auscultation bilaterally Cardiovascular: RRR, no murmur, no edema Gastrointestinal (Abdomen): Inspection/Auscultation: abdomen normal to inspection Percussion/Palpation: abdomen soft; abdomen nontender Musculoskeletal: Extremities: extremities normal to inspection Skin: no rashes, warm and dry Neurologic: + confused; no focal motor deficits M otor/Sensory: + tremor Psychiatric: Orientation: alert and oriented x 3 Affect: euthymic affect Results & Data Vital Signs (Past 12 Hours) Vital Signs Temp Pulse Pulse Resp BP BP Pulse Ox 08/31/23 09:28 08/31/23 07:58 82 08/31/23 07:30 36.3 C L 84 18 111/51 L 100 08/31/23 06:40 36.3 C L 82 17 112/66 94 08/31/23 03:18 36.3 C L 17 112/66 94 08/31/23 03:02 08/31/23 02:58 83 08/31/23 02:12 86 15 120/96 99 08/31/23 00:06 88 19 144/72 H 08/30/23 23:51 82 17 96 08/30/23 23:39 82 16 08/30/23 23:03 85 16 125/73 08/30/23 22:54 88 14 117/52 L O2 Del Method O2 Flow Rate 08/31/23 09:28 Nasal Cannula 2 08/31/23 07:58 08/31/23 07:30 Nasal Cannula 2 08/31/23 06:40 Room Air 08/31/23 03:18 Room Air 08/31/23 03:02 Room Air 08/31/23 02:58 08/31/23 02:12 Room Air 08/31/23 00:06 08/30/23 23:51 Room Air 08/30/23 23:39 08/30/23 23:03 08/30/23 22:54 PG Care Time/CCT Total # of Minutes Spent Total Time Spent with Patient: Total time spent is greater than 50% in coordination of care (as documented) at patient's floor/unit and/or counseling patient: Coding Level of Care Code 71662 IN/OBS CONSULT LVL 5,80M Diagnoses Acute renal failure N17.9 Acute hyperkalemia E87.5 Hypomagnesemia E83.42 Acidosis E87.20 AMS (altered mental status) R41.82 Anemia D64.9 Anemia type: unspecified type (6) Anemia Anemia type: unspecified type Qualified Code(s): D64.9 - Anemia, unspecified
[2023-08-31] MEDS: CIPROFLOXACIN / D5W 400 MG/200 ML BAG IV SCH (10:50)
[2023-08-31 13:31] LABS: BUN Creatinine Ratio 12.4 (10-20); Calcium 7.6 mg/dl (8.6-10.3); Creatinine Clr Calc Pharmacy 13.1 ml/min; Est GFR (African American) 11.1 ml/min; Est GFR (Non-African American) 9.6 ml/min; Potassium 5.1 mmol/L (3.5-5.1)
--- NOTE | 2023-08-31 14:55 | Ultrasound Report ---
RENAL ULTRASOUND CLINICAL HISTORY: Acute kidney injury. COMPARISON STUDY: CT of the abdomen and pelvis August 09, 2023 TECHNIQUE: Sonography of the kidneys and the urinary bladder was performed. FINDINGS: The right kidney measures 10.4 x 5.3 x 6.4 cm and the left kidney measures 12.7 x 6.3 x 5.7 cm. There is no hydronephrosis. Renal echogenicity, size and cortical thickness are normal. No renal calculi are identified. Several renal cysts are noted. The largest is a 2.6 cm left lower pole cyst. A Huizar balloon within the bladder is present. The bladder is collapsed. IMPRESSION: 1. No hydronephrosis. 2. A few renal cysts. ACT 112: Negative or not required by law. Electronically signed by: Preston Dumont M.D. 08/31/2023 2:54 PM
--- NOTE | 2023-08-31 16:46 | Hospitalist Progress Note ---
Date of Service August 31, 2023 Assessment & Plan (1) Acute renal failure: Plan: 72yo male with history of CAD, DM, HTN, AF, recent MRSA bacteremia and foot OM on antibiotics presenting from [facility] with metabolic encephalopathy/confusion as well as shaking. Patient found to have anion gapped metabolic acidosis, significant FLORECITA on CKD with elevated lactate as well. pH on VBG=7.08. HCO3=14, AG=12. BUN elevated at 65 an Cr=5.34 (was 58 and 3.96, respectively at 04:15 on 08/30/23 and baseline sports athletic trainer 1.2-1.50) Hyperkalemia with K=5.4. No EKG changes present. He has been treated with Insulin/D50 as well as calcium gluconate. IVF given as well. K+ now normal Suspect mostly pre-renal etiology - patient appears dry on clinical exam, hemoconcentrated on labs and reports decreased intake of late. COuld be AIN from antibiotics although UA not consistent with this CK normal, no rhabdo. Appreciate Nephrology consult Checked Renal US: neg for obstruction Start isotonic bicarb gtt with D5 Follow serial BMPs Follow urine output HOLD home amlodipine while BPs soft to improve hemodynamics No urgent need for HD at this time but will follow closely Switch to low potassium diet Stop Cefepime and switch to Cipro Dc home NaCl tabs-unclear why on these (2) Acute metabolic encephalopathy: Plan: Likely secondary to taking long acting morphine and gabapentin in setting of FLORECITA--> toxicities of both can cause confusion, tremors Also could be some component of uremia as well as hypoglycemia although that is resolved and e is still not verbalizing or following commands Cefepime toxicity can also cause encephalopathy--> dc Cefepime and convert to Cipro Supportive care, hydration Discontinued morphine and gabapentin discontinue prn oxycodone (3) Hypoglycemia: Plan: Patient with hypoglycemia on arrival likely from poor renal clearance of insulin in setting of FLORECITA Hold Lantus and give Novolog SSI only as needed Started D5HCO3 gtt (4) Acidosis: Plan: secondary to lactic acidosis and renal failure lactate improving with IVFs giving HCO3 gtt follow BMP (5) MRSA bacteremia: Plan: Patient with OM of left foot and recent hospitalization for MRSA bacteremia and PNA. Had some gram negative rods on wound gram stain so empirically on Cefepime -Is to continue Doxycycline 100mg po BID until 09/19/2023--> change to IV given vomiting -change Cefepime to CIpro, renally dosed until 09/19/23 Plan CAD - chronic. stable. no CP or evidence of cardiac ischemia -Continue Plavix -Continue Carvedilol -Continue Atorvastatin HTN - Chronic. -Continue Carvedilol but hold Amlodipine Depression/Anxiety - chronic -Continue Sertraline 75mg po daily Atrial Fibrillation - paroxysmal, in NSR here -Continue Amiodarone 200mg po daily -Continue Eliquis -continue tele monitoring Neuropathy-HOLD gabapentin due to FLORECITA and encephalopathy DVT proph-Eliquis Dispo-continued stay Admission and Anticipated Discharge Date Admission Date: August 31, 2023 Subjective Pt lethargic when seen but does open eyes and look at me, track me when I ask questions, He is not verbal with me at all, even to say his name. He does not really follow commands, and remains fidgety, having myoclonic jerks periodically. RN reports earlier this AM, he did vomit one time and was speaking off and on to answer some questions. I discussed his care with his close friend and contact, Kadi Oswald. She reports pt was actually doing fairly well until the 24 hrs leading up to admission where he was shaky and weak, pale, not eating much. I discussed his care on two occasions with Nephrology Tele with NSR, rates in 80s Physical Exam Constitutional: WD/WN, vitals as above Respiratory: normal respiratory effort; no cough Auscultation: + rhonchi (occasional upper airway); no crackles and no wheezes Cardiovascular: RRR, no murmur, no edema Gastrointestinal (Abdomen): normal bowel sounds, soft, nontender, no hepatosplenomegaly Neurologic: moves all extremities, awake (but drowsy) and + confused; no focal motor deficits Speech / Cognition: + abnormal speech (not speaking or even trying to speak) Psychiatric: Orientation: alert; + not oriented x 3 Genitourinary: Huizar catheter in place Results & Data Results & Data Vital Signs (Past 12 Hours) Vital Signs Temp Pulse Pulse Resp BP Pulse Ox O2 Del Method 08/31/23 15:52 36.9 C 84 17 100/51 L 97 Room Air 08/31/23 15:11 80 08/31/23 11:37 36.5 C 83 17 101/62 100 Room Air 08/31/23 09:28 Nasal Cannula 08/31/23 07:58 82 08/31/23 07:30 36.3 C L 84 18 111/51 L 100 Nasal Cannula 08/31/23 06:40 36.3 C L 82 17 112/66 94 Room Air O2 Flow Rate 08/31/23 15:52 08/31/23 15:11 08/31/23 11:37 2 08/31/23 09:28 2 08/31/23 07:58 08/31/23 07:30 2 08/31/23 06:40 Laboratory Results CBC, BMP x 2,, lactate, TSH, CK reviewed Diagnostic Findings Renal UA reviewed PG Care Time/CCT Total # of Minutes Spent Total Time Spent with Patient: Total time spent is greater than 50% in coordination of care (as documented) at patient's floor/unit and/or counseling patient: Coding Level of Care Code 31941 SUB INP/OBS CARE 3/50MIN Diagnoses Acute renal failure N17.9 Acute metabolic encephalopathy G93.41 Hypoglycemia E16.2 Acidosis E87.20 MRSA bacteremia R78.81; B95.62
[2023-08-31] MEDS ORDERED: CEFEPIME 1,000 MG in SYRINGE 0 ML IV SCH (18:00)
[2023-08-31] MEDS ORDERED: amLODIPine BESYLATE 5 MG TAB PO SCH (21:00)
[2023-08-31] MEDS: ATORVASTATIN 40 MG TAB PO SCH (22:00)
[2023-08-31] MEDS: DOXYCYCLINE HYCLATE 100 MG in DEXTROSE 5% MINI-B 100 ML IV SCH (22:04)
[2023-08-31 22:12] LABS: BUN Creatinine Ratio 11.6 (10-20); Calcium 7.6 mg/dl (8.6-10.3); Creatinine Clr Calc Pharmacy 11.9 ml/min; Est GFR (African American) 9.9 ml/min; Est GFR (Non-African American) 8.6 ml/min; Potassium 4.6 mmol/L (3.5-5.1)
--- NOTE | 2023-08-31 23:47 | Electrocardiogram Report ---
Test Reason : Blood Pressure : / mmHG Vent. Rate : 082 BPM Atrial Rate : 082 BPM P-R Int : 164 ms QRS Dur : 120 ms QT Int : 402 ms P-R-T Axes : 032 -17 117 degrees QTc Int : 469 ms Normal sinus rhythm Anteroseptal infarct (cited on or before 12-JUL-2023) T wave abnormality, consider lateral ischemia Abnormal ECG When compared with ECG of 30-JUL-2023 23:04, No significant change was found Confirmed by Tim Jimenez ([id number]) on 08/31/2023 11:47:24 PM Referred By: [facility] Confirmed By:Tim Jimenez
[2023-09-01] MEDS: STAT IV/IM STA (06:19)
[2023-09-01 06:43] LABS: BUN Creatinine Ratio 11.7 (10-20); Calcium 7.2 mg/dl (8.6-10.3); Creatinine Clr Calc Pharmacy 11.9 ml/min; Est GFR (African American) 9.9 ml/min; Est GFR (Non-African American) 8.5 ml/min; Potassium 4.4 mmol/L (3.5-5.1)
[2023-09-01 06:47] LABS: Hematocrit (blood only) 23.6 % (42.0-52.0); Hemoglobin 7.4 g/dl (14.0-18.0); Mean Corpuscular Hemoglobin 26.4 pg (25.0-34.0); Mean Corpuscular Hgb Conc 31.4 g/dL (32.0-36.0); Mean Corpuscular Volume 84.3 fL (80.0-100.0); RDW Coefficient of Variation 19.5 % (11.5-14.5); White Blood Count 6.37 K/ul (4.8-10.8)
[2023-09-01 06:55] LABS: Platelet Count 21 K/uL (130-400); Platelet Estimate Signific. Decreased (Normal)
--- NOTE | 2023-09-01 09:50 | Oncology Consultation ---
Date of Consultation September 01, 2023 Assessment & Plan (1) Thrombocytopenia: (2) Acute metabolic encephalopathy: (3) Acute renal failure: (4) Osteomyelitis of foot, left, acute: (5) Anemia: Plan Patient with multiple comorbidities who has had multiple hospitalizations since May 2023 for PAD, infected diabetic foot/toe ulcers requiring amputation. Hematology consulted for worsening thrombocytopenia and anemia. Imaging not suggestive of bleeding. Labs show no evidence of TTP/HUS with no micrangiopathic hemolytic anemia. -Anemia initially noted in coinciding with his first admission for toe amputation. Based on this, anemia likely multifactorial and due to chronic disease/inflammation 2/2 recurrent infections, folate deficiency.Recommend folate supplementation. As noted above, there is no laboratory evidence of hemolysis.May consider erythropoietin supplementation if Hb remains below 10g/dl. Transfuse for Hb below 7g/dl -Platelet count was normal when he was discharged on 08/12/2023. Thrombocytopenia appears to have started after he was started on multiple antibiotics including Linezolid which causes thrombocytopenia in close to 30% of pts. Low suspicion for HIT based on 4 T score but reasonable to obtain HIT antibody testing. Transfuse for platelet below 10,000 Thank you for this consult. Will follow peripherally. Please call if you have any questions History of Present Illness Reason for Consultation: Anemia, Thrombocytopenia Attending Physician: Wendie Lassiter MD History of Present Illness 72 year old with multiple comorbidities including history of CAD s/p CABG, DM, HTN, AFib, peripheral arterial disease s/p LLE femoral to anterior tibial artery reverse GSV bypass in 02/2023, left 2nd toe infection with other toe eschars s/p LLE 2nd to amputation and debridement of toes 1, 3, and 4 on 06/16/23, CHF, CKD III, chronic HCV, anxiety, recent admission 07/11-07/31 with left great toe infection (s/p amputation 07/14) along with MRSA bacteremia, recent admission 08/04-08/11 for nonhealing left foot surgical wound with abscess and malodorous/purulent drainage and was discharged to rehab on Cefepime, flagyl,linezolid and doxycycline. He presented to the ED on 08/30/2023 with altered mental status. Labs revealed FLORECITA, anemia and thrombocytopenia. Anemia and thrombocytopenia has progressively wors[facility]. He is not currently on prophylactic heparin but has had heparin flushes for PICC line. Allergies Allergy/AdvReac Type Severity Reaction Status Date / Time cat dander Allergy Intermediate CONGESTION Verified 08/05/23 16:21 Home Medications Medication Instructions Recorded Confirmed Type Heparin Porcine Lock Flush 5 ml IV .Q SHIFT 08/05/23 08/31/23 History acetaminophen 650 mg 650 mg PO TID 08/05/23 08/31/23 History tablet,extended release amiodarone 200 mg tablet 200 mg PO DAILY 08/05/23 08/31/23 History amlodipine 2.5 mg tablet 2.5 mg PO HS 08/05/23 08/31/23 History atorvastatin 80 mg tablet (Lipitor) 80 mg PO HS 08/05/23 08/31/23 History carvedilol 3.125 mg tablet 3.125 mg PO BID 08/05/23 08/31/23 History clopidogrel 75 mg tablet 75 mg PO QAM 08/05/23 08/31/23 History ferrous sulfate 325 mg (65 mg 325 mg PO 3XWK 08/05/23 08/31/23 History iron) tablet gabapentin 300 mg capsule 300 mg PO AMHS 08/05/23 08/31/23 History insulin glargine 100 unit/mL 10 unit subcut DAILY 08/05/23 08/31/23 History subcutaneous solution (Lantus U-100 Insulin) insulin lispro 100 unit/mL 1 sliding scale dose subcut 08/05/23 08/31/23 History subcutaneous cartridge (Humalog USEASDIRECTD U-100 Insulin) morphine 15 mg tablet,extended 15 mg PO Q12 08/05/23 08/31/23 History release oxycodone 5 mg tablet 5 mg PO Q4 PRN mod or severe pain 08/05/23 08/31/23 History sertraline 25 mg tablet 75 mg PO DAILY 08/05/23 08/31/23 History sodium chloride 1,000 mg soluble 1,000 mg PO AMHS 08/05/23 08/31/23 History tablet Med Pass 120 ml PO BID 08/31/23 08/31/23 History Saccharomyces boulardii 250 mg 250 mg PO TID 08/31/23 08/31/23 History capsule (Florastor) cefepime 2 gram solution for 2 g IV DAILY 08/31/23 08/31/23 History injection doxycycline hyclate 100 mg capsule 100 mg PO Q12 08/31/23 08/31/23 History loperamide 2 mg tablet (Imodium 2 mg PO Q4H PRN Diarrhea 08/31/23 08/31/23 History A-D) omeprazole 20 mg capsule,delayed 20 mg PO AMHS 08/31/23 08/31/23 History release ondansetron 4 mg disintegrating 4 mg PO Q6H PRN Nausea And Vomiting 08/31/23 08/31/23 History tablet promethazine 25 mg/mL injection 25 mg IM Q6H PRN n/v if 08/31/23 08/31/23 History solution ondansetron ineffective protein supplement 1 ea PO BID 08/31/23 08/31/23 History sodium chloride 0.9 % (flush) 10 ml IV QS 08/31/23 08/31/23 History Patient History Medical History History of atrial fibrillation CAD (coronary artery disease) s/p CABG x 2 vessel June 2021 Acute HFrEF (heart failure with reduced ejection fraction) Follows with [facility] EF 50-55% per 05/2022 ECHO Cardiomyopathy Dyslipidemia Tobacco abuse smoke-12/day DM (diabetes mellitus) Atherosclerosis of artery of left lower extremity s/p left leg angiogram procedure with [employer]OR of proximal vein bypass 05/27/23 s/p left leg femoral artery to posterior tibial artery reverse saphenous vein bypass done at [facility] 02/2023 s/p left SFA and popliteal stents History of anemia History of anxiety History of alcohol abuse started 1965, quit 1999 Hx of drug abuse started 1965, quit 1999 "used every drug known to man">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, stayed in for 13 years IV drug abuse hx-quit in 1981 History of hepatitis B hx IV drug use Hepatitis C virus has had since the late s>no tx, "never had any trouble with it" Heart failure with mid-range ejection fraction Follows with [facility] EF 50-55% per 05/2022 ECHO Type 2 diabetes mellitus HTN (hypertension) Surgical History History of amputation of great toe S/P CABG x 2 ~2021, went to ER w/"anxiety," found to be in congestive heart failure, had more cardiac testing, sent for f/u w/[facility] cardio surgeon, done [facility]; f/u dr. mckeon Hx of cardiac catheterization 06/2021 [facility] History of open reduction and internal fixation (ORIF) procedure rt elbow and lt wrist>hardware intact Hx of colonoscopy History of left knee surgery 1988-tibial plateau reconstruction History of eye surgery retina History of cataract extraction rt/lt Social History Smoking Status: Former smoker Tobacco Type: Cigarettes Cigarettes Per Day: 6; Second Hand Exposure: No; Do You Dip or Chew Tobacco: No; Hx Alcohol Use: Yes Hx Substance Use: Yes Last Used Substance: Unknown Last Used Substance Other:: quit 1999-stated "used every drug known to man" Substance Use Type Other:: IV Drugs. Preferred Language: Yakut Communication Ability: Unable Financial Services Counselor Required: No Beliefs That Will Affect Care: None Current Living Situation: Other Current Living Situation Comment: [place] residing @ [facility] current occupational status: disabled How many Children do You have: 1 Feels Safe at Home: Yes Assistive Devices: Walker Results & Data Vital Signs (Past 12 Hours) Vital Signs Temp Pulse Pulse Resp BP Pulse Ox O2 Del Method 09/01/23 07:34 36.4 C L 97 H 18 133/75 98 Nasal Cannula 09/01/23 07:13 Nasal Cannula 09/01/23 03:27 36.8 C 82 20 132/70 98 Nasal Cannula 08/31/23 23:37 37.0 C 85 20 129/69 98 Nasal Cannula 08/31/23 21:58 89 O2 Flow Rate 09/01/23 07:34 2 09/01/23 07:13 2 09/01/23 03:27 2 08/31/23 23:37 2 08/31/23 21:58 (5) Anemia Anemia type: unspecified type Qualified Code(s): D64.9 - Anemia, unspecified
--- NOTE | 2023-09-01 10:52 | CT Scan Report ---
CT abd pelvis wo con CLINICAL HISTORY: assess for RP bleed,splenomegaly,anemia,low plts TECHNIQUE: Helical axial images of the abdomen and pelvis were obtained. Automated dose lowering tech niques and/or adjustment according to patient size were utilized for this exam. This exam was perfor med without intravenous contrast. CT DOSE: 1453.42 mGy.cm COMPARISON: Comparison is made to CT abdomen pelvis 08/09/2023 FINDINGS: Lower chest: Small bilateral pleural effusions and atelectasis are seen. Redemonstration of partiall y visualized pulmonary nodules. Liver: Unremarkable. Previous seen noted hypodense lesion is partially visualized. Gallbladder and biliary tree: Cholelithiasis is seen without evidence of cholecystitis. No intra- or extrahepatic biliary ductal dilation. Pancreas: Unremarkable, no focal lesions. Spleen: Splenule is incidentally noted. Adrenals: Unremarkable. Kidneys and ureters: Renal cysts are seen. Bladder: Huizar catheter is seen. Reproductive organs: Unremarkable. Bowel: The appendix is normal. Lymph nodes Retroperitoneal: Unremarkable. Pelvic: Unremarkable. Mesenteric: Unremarkable. Peritoneum: Normal. Vessels: Atherosclerotic calcifications are seen. Abdominal wall: Unremarkable. Bones: Degenerative changes in the visualized spine. IMPRESSION: 1. No retroperitoneal hemorrhage or other acute abnormality is seen. 2. Evaluation for hypodense liver lesion is limited by noncontrast technique. 3. Small bilateral pleural effusions and pulmonary nodules are again seen. ACT 112: Negative or not required by law. Electronically signed by: Cody Fair M.D. 09/01/2023 10:51 AM
--- NOTE | 2023-09-01 10:54 | Hospitalist Progress Note ---
Date of Service September 01, 2023 Assessment & Plan (1) Acute renal failure: Plan: 72yo male with history of CAD, DM, HTN, AF, recent MRSA bacteremia and foot OM on antibiotics presenting from [facility] with metabolic encephalopathy/confusion as well as shaking. Patient found to have anion gapped metabolic acidosis, significant FLORECITA on CKD with elevated lactate pH on VBG=7.08. HCO3=14, AG=12. 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 No EKG changes present. He has been treated with Insulin/D50 as well as calcium gluconate. IVF given as well. K+ now normal Renal ultrasound negative for obstruction CT abdomen/pelvis ordered on 08/31-again no obstructive uropathy Further review of the records shows that he was resumed on Entresto as well as taking Jardiance, lisinopril, and metformin after discharge last admission His creatinine started rising on 08/22 and then on next check on 08/29 was significantly elevated prompting this admission He also had some nausea and vomiting and poor p.o. intake the 2 days leading up to admission Most likely prerenal etiology causing ATN in the setting of taking multiple offending drugs as above Not likely AIN from antibiotics as UA not consistent with this CK normal, no rhabdo. Creatinine worsened to 6.0 but now is starting to trend down to 5.7, acidosis is improving on a bicarbonate drip Appreciate Nephrology consult Continue isotonic bicarb gtt with D5 as long as no respiratory distress. He does have some small pleural effusions seen on CT abdomen/pelvis on 08/31 and is requiring 2 L oxygen Follow BMP again in the morning Follow urine output with Huizar catheter in place HOLD home amlodipine while BPs soft to improve hemodynamics Continue low potassium diet and discontinued home NaCl tabs-unclear why on these Holding home Entresto, Jardiance, metformin Encephalopathy not likely from uremia but more likely from toxicities from morphine gabapentin and cefepime in the setting of renal failure If mentation, urine output, and renal function not improving by tomorrow morning, plan for temporary dialysis catheter placement and hemodialysis. This will dialyze the morphine and the gabapentin and hopefully improve his mentation (2) Acute metabolic encephalopathy: Plan: Likely secondary to taking long acting morphine and gabapentin as well as cefepi me in setting of FLORECITA--> toxicities of these medications can cause confusion, tremors Also could be some component of uremia as well as hypoglycemia although that is resolved and he is still not verbalizing or following commands Ammonia level normal, not retaining CO2 on ABG Renal failure is likely contributing somewhat as well CT head negative. I do not feel he would benefit or be able to hold still for an MRI brain at this point Continue supportive care, hydration Discontinued morphine, cefepime, and gabapentin Possible dialysis tomorrow if not improving which would dialyze out the metabolites of medications (3) Thrombocytopenia: Plan: Platelets started dropping on outpatient labs on 08/22 and now are severely low at 21 No evidence of bleeding from anywhere. CT abdomen/pelvis without splenomegaly He does have a liver mass which is noted from previous and will need follow-up when more stable Appreciate hematology consultation-given anemia and thrombocytopenia, workup ordered for TTP/HUS and was negative for evidence of microangiopathic hemolytic anemia Workup for DIC negative Most likely secondary to linezolid which was just discontinued on 08/28 and is well-known to cause thrombocytopenia's Potentially PPI, cefepime could cause thrombocytopenia's as well-cefepime has also been discontinued Follow CBC, transfuse platelets if has bleeding or platelets less than 10,000 Also testing HIT antibodies but 4 T score is 3-he is getting heparin flushes only through his PICC line (4) Anemia: Plan: Hemoglobin dropped acutely to 7.4 from 10.4-most likely hemodilutional No bleeding from anywhere, labs ordered for hemolysis are negative Repeat hemoglobin improved to 7.9 CT abdomen/pelvis ordered which is negative for retroperitoneal bleeding B12 folate and iron studies all ordered-folate is low-replace with 1 mg IV folic acid daily Follow CBC (5) Hypoglycemia: Plan: Patient with hypoglycemia on arrival likely from poor renal clearance of insulin in setting of FLORECITA-now resolved on D5 and fluids Continue to hold Lantus and give Novolog SSI only as needed Continue D5HCO3 gtt (6) Acidosis: Plan: secondary to lactic acidosis and renal failure-improving on bicarb drip lactate improved with IVFs Continue HCO3 gtt follow BMP (7) MRSA bacteremia: Plan: Patient with OM of left foot and recent hospitalization for MRSA bacteremia and PNA. Had some gram negative rods on wound gram stain so empirically on Cefepime -Is to continue Doxycycline 100mg po BID until 09/19/2023--> changed to IV given vomiting -changed Cefepime to CIpro due to possible cefepime toxicity and cause of encephalopathy-renally dosed until 09/19/23 -Ordered wound care daily dressing changes and packing of the wound on the foot No fevers or leukocytosis here to suggest recurrent infection Plan CAD - chronic. stable. no CP or evidence of cardiac ischemia -Continue Plavix, carvedilol, and atorvastatin when he is able to take p.o. HTN - Chronic. -Continue Carvedilol but hold Amlodipine Depression/Anxiety - chronic -Continue Sertraline 75mg po daily when he is able to take p.o. Atrial Fibrillation - paroxysmal, in NSR here -Continue Amiodarone 200mg po daily when able to take p.o. -He typically is on Eliquis but this is currently on hold due to thrombocytopenia -continue tele monitoring Neuropathy-HOLD gabapentin due to FLORECITA and encephalopathy DVT proph-hold any anticoagulation for now due to severe thrombocytopenia Dispo-continued stay, prognosis guarded. Discussed all care with point of contact, Kadi. She and the patient's son have had discussions and all are in agreement to pursue temporary dialysis if needed. They are also in agreement to pursue NG feeding tube if enteral feeds are needed, and all blood transfusion products if needed Admission and Anticipated Discharge Date Admission Date: August 31, 2023 Subjective Patient remains nonverbal and very confused, with tremors all over. He frequently falls asleep and is not eating or taking pills. I discussed his case at length with nephrology, hematology, and his primary contact, Kadi. Telemetry with normal sinus rhythm and sinus tachycardia with IVCD with rates in the 90s to 100s Physical Exam Constitutional: + ill appearing and + lethargic; no acut e distress Eyes: PERRL Respiratory: normal respiratory effort; no cough Auscultation: no crackles and no wheezes Cardiovascular: RRR, no murmur, no edema Gastrointestinal (Abdomen): normal bowel sounds, soft, nontender, no hepatosplenomegaly Neurologic: moves all extremities and + confused; no focal motor deficits and + not awake (But will wake up to loud verbal stimulus for me) Speech / Cognition: + abnormal speech (not speaking or even trying to speak) Motor/Sensory: + tremor (Bilateral upper and lower extremity myoclonic jerks and tremors) Psychiatric: Orientation: + not oriented x 3 Genitourinary: Huizar catheter in place draining small amount of tea colored urine Results & Data Results & Data Vital Signs (Past 12 Hours) Vital Signs Temp Pulse Resp BP Pulse Ox O2 Del Method O2 Flow Rate 09/01/23 07:34 36.4 C L 97 H 18 133/75 98 Nasal Cannula 2 09/01/23 07:13 Nasal Cannula 2 09/01/23 03:27 36.8 C 82 20 132/70 98 Nasal Cannula 2 08/31/23 23:37 37.0 C 85 20 129/69 98 Nasal Cannula 2 Laboratory Results CBC, CMP, LDH, fibrinogen, PT/PTT/INR, ammonia level, ABG all reviewed Diagnostic Findings CT abdomen/pelvis images personally reviewed by me PG Care Time/CCT Total # of Minutes Spent Total Time Spent with Patient: Total time spent is greater than 50% in coordination of care (as documented) at patient's floor/unit and/or counseling patient: Coding Level of Care Code 93482 SUB INP/OBS CARE 3/50MIN Diagnoses Acute renal failure N17.9 Acute metabolic encephalopathy G93.41 Thrombocytopenia D69.6 Anemia D64.9 Anemia type: unspecified type Hypoglycemia E16.2 Acidosis E87.20 MRSA bacteremia R78.81; B95.62 (4) Anemia Anemia type: unspecified type Qualified Code(s): D64.9 - Anemia, unspecified
--- NOTE | 2023-09-01 11:09 | Nephrology Progress Note ---
Date of Service September 01, 2023 Assessment & Plan (1) Acute renal failure: (2) AMS (altered mental status): (3) Anemia: (4) Acidosis: (5) Thrombocytopenia: Plan 72-year-old gentleman with stage III B CKD, b/l cr 1.5-1.6 mg/dl, chronic mild hyponatremia, hypertension, diabetes, coronary artery disease, CHF, admitted with AMS, FLORECITA. Urinalysis with low-grade proteinuria and microscopic hematuria, no pyuria. Renal ultrasound and CT abdomen pelvis from this morning was otherwi se unremarkable no postrenal obstruction, retroperitoneal bleed. Was on cefepime and doxycycline which he has been for few weeks for left foot osteomyelitis. On admission creatinine was 4.0 which has been rapidly worsening Potassium improved to 4.8 and bicarb 18. Creatinine today staying relatively stable compared to yesterday, potassium normal bicarb slightly improved. Urine output has been low only 150 mL over last 24 hours however no sign of significant volume overload or respiratory distress. Blood pressure has been variable but no significant hypotensive episode. Hemoglobin dropped further to 7.6. Platelet has been dropping since admission and down to 22 this morning. FLORECITA still could be secondary to ATN, although platelet is low, no significant hematuria on UA, LFTs are normal, unlikely renal vasculitis or microangiopathy. Although he was on cefepime for weeks, AIN seems less likely. --Continue bicarb drip, monitor kidney function, electrolyte, intake and output, with low urine output if there is any evidence of respiratory distress or volume overload, will need to stop IV fluid and consider IV diuretics. -- Hold gabapentin for now --dose meds for eGFR <10 --no acute indication for dialysis but if no further improvement in kidney function and clinically remains same without any improvement, will consider HD tomorrow with temporary catheter if family agreeable. If Platelet remains low, may need platelet transfusion before dialysis catheter placement. Admission and Anticipated Discharge Date Admission Date: August 31, 2023 Varghese Ross was seen and evaluated this morning. He remains obtunded and kept eyes close but opened briefly but did not talk. Continues to have jerking movements. UO low but cr staying relatively stable. BP fair, no respiratory distress. Ct A/OP unremarkable except small b/l Pl effusion. Review of Systems Review of Systems: Unobtainable due to mental health condition Physical Exam Constitutional: WD/WN, vitals as above + ill appearing and + altered mental status; no acute distress Neck: normal visual inspection Respiratory: Auscultation: lungs clear to auscultation bilaterally Cardiovascular: RRR, no murmur, no edema Gastrointestinal (Abdomen): Inspection/Auscultation: abdomen normal to inspection Percussion/Palpation: abdomen soft; abdomen nontender Musculoskeletal: Extremities: extremities normal to inspection Skin: no rashes, warm and dry Neurologic: + confused; no focal motor deficits M otor/Sensory: + tremor Psychiatric: Orientation: alert and oriented x 3 Affect: euthymic affect Results & Data Vital Signs (Past 12 Hours) Vital Signs Temp Pulse Resp BP Pulse Ox O2 Del Method O2 Flow Rate 09/01/23 07:34 36.4 C L 97 H 18 133/75 98 Nasal Cannula 2 09/01/23 07:13 Nasal Cannula 2 09/01/23 03:27 36.8 C 82 20 132/70 98 Nasal Cannula 2 08/31/23 23:37 37.0 C 85 20 129/69 98 Nasal Cannula 2 PG Care Time/CCT Total # of Minutes Spent Total Time Spent with Patient: Total time spent is greater than 50% in coordination of care (as documented) at patient's floor/unit and/or counseling patient: Coding Level of Care Code 42727 SUB INP/OBS CARE 3/50MIN Diagnoses Acute renal failure N17.9 AMS (altered mental status) R41.82 Anemia D64.9 Anemia type: unspecified type Acidosis E87.20 Thrombocytopenia D69.6 (3) Anemia Anemia type: unspecified type Qualified Code(s): D64.9 - Anemia, unspecified
[2023-09-01 11:41] LABS: Bilirubin Direct 0.1 mg/dl (0-0.2); Bilirubin,Total 0.4 mg/dl (0.2-1.0)
[2023-09-01 11:43] LABS: Hematocrit (blood only) 24.8 % (42.0-52.0); Hemoglobin 7.9 g/dl (14.0-18.0); Mean Corpuscular Hemoglobin 26.9 pg (25.0-34.0); Mean Corpuscular Hgb Conc 31.9 g/dL (32.0-36.0); Mean Corpuscular Volume 84.4 fL (80.0-100.0); Platelet Count 28 K/uL (130-400); RDW Coefficient of Variation 19.8 % (11.5-14.5); RDW Standard Deviation 59.8 fL (36.4-46.3); Red Blood Count 2.94 M/uL (4.70-6.10); White Blood Count 9.84 K/ul (4.8-10.8)
[2023-09-01] MEDS: CALCIUM GLUCONATE 1,000 MG/60 ML BAG IV STA ×2 (11:57→16:40)
[2023-09-01 12:04] LABS: Fibrinogen 237 mg/dl (184-400); INR 1.5 (0.9-1.1); Partial Thromboplastin Ratio 1.2; Partial Thromboplastin Time 32 Seconds (21-31); Prothrombin Time 15.8 Seconds (9.0-12.0)
[2023-09-01 12:07] LABS: Folate (Folic Acid),Ser orPlas 5.16 ng/ml (>5.38)
[2023-09-01 12:16] LABS: Ferritin 654.6 ng/ml (8-388)
[2023-09-01 12:17] LABS: Iron 124 mcg/dl (35-175); Unsaturated Iron Binding Cap < 55 mcg/dl (155-355)
[2023-09-01] MEDS: FOLIC ACID 1 MG in SYRINGE 9.8 ML IV SCH (13:42)
[2023-09-01 15:45] LABS: Calcium 7.2 mg/dl (8.6-10.3); Creatinine Clr Calc Pharmacy 12.5 ml/min; Est GFR (African American) 10.5 ml/min; Potassium 4.3 mmol/L (3.5-5.1)
[2023-09-01 17:18] LABS: Base Excess ABG -7.1 mEq/L (-9-1.8); HCO3 ABG 19 mmol/L (19-24); Oxygen Saturation ABG 97.8 % (90-95); PCO2 ABG 38 mmHg (35-46); PO2 ABG 78 mmHg (80-95)
[2023-09-01 17:21] LABS: Allen Test Pos (Pos)
[2023-09-01] MEDS: PANTOprazole 40 MG in SYRINGE 0 ML IV ONE (21:18)
[2023-09-02 05:41] LABS: Albumin Globulin Ratio 0.8 (0.9-2); Albumin Level 2.4 gm/dl (3.4-5.0); BUN Creatinine Ratio 11.5 (10-20); Bilirubin,Total 0.4 mg/dl (0.2-1.0); Calcium 7.1 mg/dl (8.6-10.3); Creatinine Clr Calc Pharmacy 10.5 ml/min; Est GFR (African American) 8.5 ml/min; Est GFR (Non-African American) 7.3 ml/min; Magnesium 1.2 mg/dl (1.7-2.4); Phosphorus 3.6 mg/dl (2.5-4.9); Potassium 4.1 mmol/L (3.5-5.1); Total Protein 5.4 gm/dl (6.0-8.3)
[2023-09-02 05:43] LABS: Hematocrit (blood only) 20.1 % (42.0-52.0); Hemoglobin 6.6 g/dl (14.0-18.0); Mean Corpuscular Hemoglobin 26.9 pg (25.0-34.0); Mean Corpuscular Hgb Conc 32.8 g/dL (32.0-36.0); Mean Platelet Volume 12.7 fL (9.4-12.4); Platelet Count 19 K/uL (130-400); RDW Coefficient of Variation 19.2 % (11.5-14.5); RDW Standard Deviation 57.1 fL (36.4-46.3); Red Blood Count 2.45 M/uL (4.70-6.10); White Blood Count 7.22 K/ul (4.8-10.8)
[2023-09-02 05:46] LABS: Basophils # (auto) 0.03 K/uL (0.00-0.20); Basophils % (auto) 0.4 %; Eosinophils # (auto) 0.04 K/uL (0.00-0.50); Eosinophils % (auto) 0.6 %; Immature Granulocytes # (auto) 0.06 K/uL (0.01-0.20); Immature Granulocytes % (auto) 0.8 %; Lymphocytes # (auto) 0.56 K/uL (1.20-3.40); Lymphocytes % (auto) 7.8 %; Monocytes # (auto) 0.69 K/uL (0.11-0.59); Monocytes % (auto) 9.6 %; Neutrophils # (auto) 5.84 K/uL (1.40-6.50); Neutrophils % (auto) 80.8 %; RBC Morphology Unremarkable
[2023-09-02 05:48] LABS: INR 1.7 (0.9-1.1); Prothrombin Time 17.3 Seconds (9.0-12.0)
[2023-09-02] MEDS ORDERED: SODIUM CHLORIDE 0.9% 250 ML IV PRN ×6 (06:03→18:49)
--- NOTE | 2023-09-02 06:19 | Communication Note ---
Date of Service: September 02, 2023 Notified by nursing ~5:45AM of pt's AM labs- significant for Hgb 6.6, plt 19, and Cr 6.89. Nurse also noted what appeared to coffee ground secretions from his mouth this AM. I spoke with pt's STAN BackLadan via phone and explained pt's current situation and lab work. She agrees with and gives consent for a blood transfusion. I filled out and signed a blood consent for the pt detailing that I spoke with Ladan and that she gave me verbal consent. Ladan also wanted it to be made clear that she also provides consent for pt to proceed with dialysis. Type and screen ordered along with 2u of pRBCs- 1 for transfusion now and 1 to have on hold. CBC for 1hr post transfusion ordered as well. Resident Activity Tracking Resident Involvement: Resident Care Provided Care Provided: Adult Hospital Medicine
[2023-09-02] MEDS: MAGNESIUM SULFATE / D5W 1 GM/100 ML BAG IV SCH (07:50)
--- NOTE | 2023-09-02 08:37 | Hospitalist Progress Note ---
Date of Service September 02, 2023 Assessment & Plan (1) Acute renal failure: Plan: 72yo male with history of CAD, DM, HTN, AF, recent MRSA bacteremia and foot OM on antibiotics presenting from [facility] with metabolic encephalopathy/confusion as well as shaking. Patient found to have anion gapped metabolic acidosis, significant FLORECITA on CKD with elevated lactate pH on VBG=7.08. HCO3=14, AG=12. BUN elevated at 65 an Cr=5.34 (was 58 and 3.96, respectively at 04:15 on 08/30/23 and baseline epic analyst 1.2-1.50) Hyperkalemia with K=5.4. No EKG changes present. He has been treated with Insulin/D50 as well as calcium gluconate. IVF given as well. K+ now normal Renal ultrasound negative for obstruction CT abdomen/pelvis ordered on 08/31-again, no obstructive uropathy Further review of the records shows that he was resumed on Entresto as well as taking Jardiance, lisinopril, Lasix, and metformin after discharge last admission His creatinine started rising on 08/22 and then on next check on 08/29 was significantly elevated prompting this admission He also had some nausea and vomiting and poor p.o. intake the 2 days leading up to admission possibly from opioid use Most likely prerenal etiology causing ATN in the setting of taking multiple offending drugs as above Not likely AIN from antibiotics as UA not consistent with this CK normal, no rhabdo. [employer] worsened to 6.89 on 09/01 and he was oliguric. Acidosis is improving on a bicarbonate drip He was transferred to the ICU for placement of dialysis catheter-appreciate gas meter prover management Urgent dialysis catheter placed on 09/01 after giving FFP, platelets for coagulopathy Underwent dialysis on 09/01 Appreciate Nephrology consult Discontinue IV fluids, monitor urine output, Huizar catheter in place Follow BMP Continue to HOLD home amlodipine while BPs soft to improve hemodynamics Holding home Entresto, Jardiance, metformin, and Lasix Encephalopathy not likely from uremia but more likely from toxicities from morphine gabapentin and cefepime in the setting of renal failure (2) Acute metabolic encephalopathy: Plan: Likely secondary to taking long acting morphine and gabapentin as well as cefepime in setting of FLORECITA--> toxicities of these medications can cause confusion, tremors Also could be some component of uremia as well as hypoglycemia although that is resolved and he is still not verbalizing or following commands Ammonia level normal, not retaining CO2 on ABG Renal failure is likely contributing somewhat as well CT head negative. I do not feel he would benefit or be able to hold still for an MRI brain at this point Continue supportive care, and now hoping that dialysis will dialyze out some of these toxic metabolites Discontinued morphine, cefepime, and gabapentin Slightly improved with being more alert and responding more to verbal stimuli after dialysis on 09/01 He has not had any p.o. intake since 08/28. Consider enteral feedings if not able to eat over the next couple of days (3) Thrombocytopenia: Plan: Platelets started dropping on outpatient labs on 08/22 and now are severely low at 19, with coffee-ground emesis and melena development on 09/01 CT abdomen/pelvis without splenomegaly He does have a liver mass which is noted from previous and will need follow-up when more stable Appreciate hematology consultation-given anemia and thrombocytopenia, workup ordered for TTP/HUS and was negative for evidence of microangiopathic hemolytic anemia. Workup for DIC negative Most likely secondary to linezolid which was just discontinued on 08/28 and is well-known to cause thrombocytopenias Potentially PPI, cefepime could cause thrombocytopenia's as well-cefepime has also been discontinued Given bleeding, will transfuse platelets on 09/01 Follow-up HIT antibodies but 4 T score is 3-he is getting heparin flushes only through his PICC line Holding home Plavix and Eliquis Follow CBC tonight and again in the morning (4) Anemia: Plan: Hemoglobin dropped acutely to 7.4 from 10.4 on 08/31 and dropped further to 6.9 on 09/01 labs ordered for hemolysis are negative but noted to have hematemesis/coffee- ground emesis in mouth and melena on 09/01 [address] abdomen/pelvis ordered which is negative for retroperitoneal bleeding B12 folate and iron studies all ordered-folate is low-replace with 1 mg IV folic acid daily Follow CBC serially (5) GIB (gastrointestinal bleeding): Plan: As noted above Increased PPI to 40 mg IV twice daily Transfusing blood as needed Most likely gastritis or peptic ulcer disease Unstable for endoscopy (6) Hypoglycemia: Plan: Patient with hypoglycemia on arrival likely from poor renal clearance of insulin in setting of FLORECITA-now resolved on D5 and fluids which have since been stopped on dialysis Continue to hold Lantus and give Novolog SSI only as needed (7) Acidosis: Plan: secondary to lactic acidosis and renal failure-now much improved after being on bicarb drip Now getting dialysis (8) MRSA bacteremia: Plan: Patient with OM of left foot and recent hospitalization for MRSA bacteremia and PNA. Had some gram negative rods on wound gram stain so empirically on Cefepime -Is to continue Doxycycline 100mg po BID until 09/19/2023--> changed to IV given vomiting -changed Cefepime to CIpro due to possible cefepime toxicity and cause of encephalopathy-renally dosed until 09/19/23 -Ordered wound care daily dressing changes and packing of the wound on the foot No fevers or leukocytosis here to suggest recurrent infection Plan CAD - chronic. stable. no CP or evidence of cardiac ischemia -Hold Plavix for bleeding and thrombocytopenia, can give carvedilol, and atorvastatin when he is able to take p.o. HTN - Chronic. -Continue Carvedilol but hold Amlodipine Depression/Anxiety - chronic -Continue Sertraline 75mg po daily when he is able to take p.o. Atrial Fibrillation - paroxysmal, in NSR here -Continue Amiodarone 200mg po daily when able to take p.o. -He typically is on Eliquis but this is currently on hold due to thrombocytopenia and bleeding -continue tele monitoring Neuropathy-HOLD gabapentin due to FLORECITA and encephalopathy DVT proph-hold any anticoagulation for now due to severe thrombocytopenia and bleeding Dispo-continued stay, prognosis guarded. Discussed all care with point of contact, Kadi. She and the patient's son have had discussions and all are in agreement to pursue temporary dialysis . They are also in agreement to pursue NG feeding tube if enteral feeds are needed, and all blood transfusion products if needed Admission and Anticipated Discharge Date Admission Date: August 31, 2023 Subjective Patient continues to be nonverbal and delirious, with myoclonic jerks but was slightly more awake and alert and somewhat responsive to verbal stimulus today. He would occasionally look at me when I said his name. Unfortunately, he made very little urine overnight, creatinine worsened, and hemoglobin and platelets dropped. He also had coffee-ground material found on the inside of his lips and later in the day had melena. He was transferred the ICU and had a temporary dialysis catheter placed and had urgent dialysis. I discussed his care at length with his POA/friend, Ladan. I also discussed his care with nephrology, hematology, and the gas meter prover Physical Exam Constitutional: WD/WN, vitals as above + ill appearing and + lethargic; no acute distress Eyes: PERRL Respiratory: normal respiratory effort; no cough Auscultation: lungs clear to auscultation bilaterally Cardiovascular: RRR, no murmur, no edema Gastrointestinal (Abdomen): normal bowel sounds, soft, nontender, no hepatosplenomegaly Neurologic: awake and + confused Speech / Cognition: + abnormal speech (not speaking or even trying to speak) Motor/Sensory: + tremor (Bilateral upper and lower extremity myoclonic jerks, less from previous) Psychiatric: Orientation: alert; + not oriented x 3 Genitourinary: Huizar catheter with small amount of dark yellow urine Results & Data Results & Data Vital Signs (Past 12 Hours) Vital Signs Temp Pulse Pulse Resp BP Pulse Ox O2 Del Method 09/02/23 07:35 36.8 C 109 H 18 167/74 H 96 Nasal Cannula 09/02/23 07:01 Nasal Cannula 09/02/23 04:09 37.1 C 122 H 20 137/78 93 Nasal Cannula 09/02/23 01:13 37.1 C 94 H 20 113/63 98 Nasal Cannula 09/01/23 23:30 Nasal Cannula 09/01/23 21:35 109 H O2 Flow Rate 09/02/23 07:35 2 09/02/23 07:01 2 09/02/23 04:09 2 09/02/23 01:13 2 09/01/23 23:30 2 09/01/23 21:35 Laboratory Results CBC x 3, BMP, INR reviewed PG Care Time/CCT Total # of Minutes Spent Total Time Spent with Patient: Total time spent is greater than 50% in coordination of care (as documented) at patient's floor/unit and/or counseling patient: Coding Level of Care Code 95050 SUB INP/OBS CARE 3/50MIN Diagnoses Acute renal failure N17.9 Acute metabolic encephalopathy G93.41 Thrombocytopenia D69.6 Anemia D64.9 Anemia type: unspecified type GIB (gastrointestinal bleeding) K92.2 GI bleed type/associated pathology: unspecified gastrointestinal hemorrhage type Hypoglycemia E16.2 Acidosis E87.20 MRSA bacteremia R78.81; B95.62 (4) Anemia Anemia type: unspecified type Qualified Code(s): D64.9 - Anemia, unspecified (5) GIB (gastrointestinal bleeding) GI bleed type/associated pathology: unspecified gastrointestinal hemorrhage type Qualified Code(s): K92.2 - Gastrointestinal hemorrhage, unspecified
[2023-09-02] MEDS: PHYTONADIONE 5 MG in DEXTROSE 5% 50 ML IV ONE (09:00)
[2023-09-02] MEDS: PHYTONADIONE 10 MG in DEXTROSE 5% 50 ML IV ONE (10:00)
--- NOTE | 2023-09-02 10:51 | Procedure Note ---
Procedure Note Date of Service September 02, 2023 Note CENTRAL LINE PROCEDURE NOTE: Procedure: Temporary hemodialysis catheter placement Provider: Yunior Vargas MD Indication: Central Drug Administration, Poor Venous Access, Multiple Lab Draws Necessary, etc. Anesthesia: 5 cc 1% lidocaine locally Site: Right IJ Verbal consent consent had been obtained from the patient's POA by the primary admitting service prior to the procedure. Indication: Need for temporary HD line A time-out was completed verifying correct patient, procedure, site, positioning, and implants(s) or special equipment if applicable. Patients right neck was cleansed and draped in the typical sterile fashion using Chloraprep. The Internal Jugular Vein and Carotid Artery were identified using ultrasound. The superficial tissue was anesthetized using 5 mL of 1% lidocaine without epinephrine under direct visualization with the ultrasound. After adequate anesthetization was achieved, the Internal Jugular vein was cannulated under direct ultrasound guidance using an introducer needle on a syringe. Good venous blood return was maintained prior to removal of syringe from introducer needle. Using Seldinger Technique, a guide wire was advanced through the introducer needle without resistance. The introducer needle was removed and ultrasound images were obtained of the guide wire within the Internal Jugular Vein. A small incision was made in penetrating fashion at the guide wire insertion site utilizing an 11 blade scalpel. The dilator was advanced to the vessel without resistance. The dilator was exchanged for the triple lumen catheter which was advanced into the vessel without resistance. The guide wire was removed intact from the catheter without issue. Claves were placed on each catheter tip with confirmation of good blood flow from each lumen. Each port was easily flushed with sterile saline. The catheter was placed at 15 cm [address] in place. Sterile dressing including impregnated chlorhexidine gel was applied to the catheter with careful attention to sterility. Patient tolerated procedure well. No immediate complications were met. Post procedure x-ray was ordered and is pending EBL: 5 mL Coding CPT Codes Tubes, Drains, and Vasc Access - Tubes, Drains, and Vasc Access: [id number] Insertion of cannula for hemodialysis ([id number]) Tubes, Drains, and Vasc Access - Tubes, Drains, and Vasc Access: [id number] Ultrasound Guidance For Vascular ([id number]) [facility] [place] Procedure Codes (Charges) Tubes, Drains, and Vasc Access Procedure 1: Tubes, Drains, and Vasc Access: [id number] Insertion of cannula for hemodialysis Procedure 2: Tubes, Drains, and Vasc Access: [id number] Ultrasound Guidance For Vascular
[2023-09-02] MEDS ORDERED: PANTOprazole 40 MG in SYRINGE 0 ML IV SCH (11:00)
[2023-09-02] MEDS: PANTOprazole 40 MG in SYRINGE 0 ML IV SCH (11:07)
--- NOTE | 2023-09-02 11:22 | XRay Report ---
XR chest 1V portable HISTORY: line placement COMPARISON: Chest 08/30/2023. FINDINGS: A right PICC terminates in the SVC. Interval placement of a right jugular central venous ca theter which also terminates in the proximal SVC. No pneumothorax. No pleural effusions. The heart is borderline enlarged. There are poststernotomy changes. No acute fractures. Scattered pulmonary nodul es are better appreciated on a prior chest CT. There is mild central pulmonary vascular congestion wi thout overt edema. IMPRESSION: 1. Satisfactory support line placement. No pneumothorax. 2. Cardiomegaly and mild congestive change. 3. Scattered pulmonary nodules are better appreciated on the prior chest CT. ACT 112: Negative or not required by law. Electronically signed by: Vaibhav Adams M.D. 09/02/2023 11:21 AM
--- NOTE | 2023-09-02 12:28 | Critical Care Consultation ---
Date of Consultation September 02, 2023 Assessment & Plan (1) Acute renal failure: (2) Thrombocytopenia: (3) Acute metabolic encephalopathy: (4) Anemia: Plan Impression: 72-year-old male diabetic with recent history of osteomyelitis MRSA bacteremia on antibiotics now with progressive renal failure and metabolic encephalopathy. We are asked to provide access for hemodialysis. Recommendations: 1. Acute renal failure: Per nephrology. Performed a limited ultrasound of the right internal jugular which appears to be appropriate for HD catheter placement. Consent has already been provided by the patient's POA as noted in prior notes. Once the platelets are in and FFP is in, we will place the line although he is at an increased risk of bleeding complications due to his coagulopathy. Long-term management per nephrology and the primary service. 2. Management of the patient's hematologic and infectious disease issues is deferred to the primary admitting service as well as hematology. 3. Patient reportedly was transferred to the ICU to facilitate initial hemodialysis. If he tolerates it well, he can likely be transferred back to the floor later today. Critical care services will sign off at this point time. Feel free to contact us should the patient develop additional or progressive critical care issues. History of Present Illness Attending Physician: Wendie Lassiter MD History of Present Illness Asked by hospitalist to assist in placement of a temporary hemodialysis line in this patient with acute renal failure. History is obtained from discussion with the hospitalist as the patient is obtunded and unable to provide any pertinent history. Electronic medical record was also reviewed. The patient is a 72-year-old male who was admitted to the facility 08/31/2023 from his [facility] with encephalopathy and confusion. He was found to have an elevated lactate with chronic kidney disease and acidemia. He was also hypog lycemic. Been on chronic morphine in the outpatient setting as well as gabapentin and oxycodone. He has a history of MRSA bacteremia due to diabetic left foot infection with osteomyelitis. He been on doxycycline and cefepime. He was admitted and nephrology consultation was obtained. He received bicarb. He developed anemia and thrombocytopenia and hematology oncology consultation was obtained. Labs were not felt to be consistent with TTP HUS as there is no evidence of microangiopathic hemolytic anemia. This morning he was noted to be more anemic and more thrombocytopenic with worsening kidney function. He is received to unit of platelets. He is also coagulable pathic and received FFP as well as vitamin K. Was felt the patient needed urgent dialysis. Vascular surgery was not available so real estate analyst was consulted for placement of a temporary hemodialysis line. Allergies Allergy/AdvReac Type Severity Reaction Status Date / Time cat dander Allergy Intermediate CONGESTION Verified 08/05/23 16:21 Home Medications Medication Instructions Recorded Confirmed Type Heparin Porcine Lock Flush 5 ml IV .Q SHIFT 08/05/23 08/31/23 History acetaminophen 650 mg 650 mg PO TID 08/05/23 08/31/23 History tablet,extended release amiodarone 200 mg tablet 200 mg PO DAILY 08/05/23 08/31/23 History amlodipine 2.5 mg tablet 2.5 mg PO HS 08/05/23 08/31/23 History atorvastatin 80 mg tablet (Lipitor) 80 mg PO HS 08/05/23 08/31/23 History carvedilol 3.125 mg tablet 3.125 mg PO BID 08/05/23 08/31/23 History clopidogrel 75 mg tablet 75 mg PO QAM 08/05/23 08/31/23 History ferrous sulfate 325 mg (65 mg 325 mg PO [id number] 08/05/23 08/31/23 History iron) tablet gabapentin 300 mg capsule 300 mg PO AMHS 08/05/23 08/31/23 History insulin glargine 100 unit/mL 10 unit subcut DAILY 08/05/23 08/31/23 History subcutaneous solution (Lantus U-100 Insulin) insulin lispro 100 unit/mL 1 sliding scale dose subcut 08/05/23 08/31/23 History subcutaneous cartridge (Humalog USEASDIRECTD U-100 Insulin) morphine 15 mg tablet,extended 15 mg PO Q12 08/05/23 08/31/23 History release oxycodone 5 mg tablet 5 mg PO Q4 PRN mod or severe pain 08/05/23 08/31/23 History sertraline 25 mg tablet 75 mg PO DAILY 08/05/23 08/31/23 History sodium chloride 1,000 mg soluble 1,000 mg PO AMHS 08/05/23 08/31/23 History tablet Med Pass 120 ml PO BID 08/31/23 08/31/23 History Saccharomyces boulardii 250 mg 250 mg PO TID 08/31/23 08/31/23 History capsule (Florastor) cefepime 2 gram solution for 2 g IV DAILY 08/31/23 08/31/23 History injection doxycycline hyclate 100 mg capsule 100 mg PO Q12 08/31/23 08/31/23 History loperamide 2 mg tablet (Imodium 2 mg PO Q4H PRN Diarrhea 08/31/23 08/31/23 History A-D) omeprazole 20 mg capsule,delayed 20 mg PO AMHS 08/31/23 08/31/23 History release ondansetron 4 mg disintegrating 4 mg PO Q6H PRN Nausea And Vomiting 08/31/23 08/31/23 History tablet promethazine 25 mg/mL injection 25 mg IM Q6H PRN n/v if 08/31/23 08/31/23 History solution ondansetron ineffective protein supplement 1 ea PO BID 08/31/23 08/31/23 History sodium chloride 0.9 % (flush) 10 ml IV QS 08/31/23 08/31/23 History apixaban 5 mg tablet (Eliquis) 5 mg PO BID 09/01/23 09/01/23 History empagliflozin 25 mg tablet 25 mg PO DAILY 09/01/23 09/01/23 History (Jardiance) furosemide 20 mg tablet 20 mg PO DAILY 09/01/23 09/01/23 History metformin 1,000 mg tablet 1,000 mg PO BID 09/01/23 09/01/23 History sacubitril 24 mg-valsartan 26 mg 1 tab PO BID 09/01/23 09/01/23 History tablet (Entresto) Patient History Medical History History of atrial fibrillation CAD (coronary artery disease) s/p CABG x 2 vessel June 2021 Acute HFrEF (heart failure with reduced ejection fraction) Follows with [facility] EF 50-55% per 05/2022 ECHO Cardiomyopathy Dyslipidemia Tobacco abuse smoke-12/day DM (diabetes mellitus) Atherosclerosis of artery of left lower extremity s/p left leg angiogram procedure with TRAINS DISPATCHER SUPERVISOR of proximal vein bypass 05/27/23 s/p left leg femoral artery to posterior tibial artery reverse saphenous vein bypass [place] [facility] [place] s/p left SFA and popliteal stents History of anemia History of anxiety History of alcohol abuse started 1965, quit 1999 Hx of drug abuse started 1965, quit 1999 "used every drug known to man">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, stayed in for 13 years IV drug abuse hx-quit in 1981 History of hepatitis B hx IV drug use Hepatitis C virus has had since the late >no tx, "never had any trouble with it" Heart failure with mid-range ejection fraction Follows with [facility] EF 50-55% per 05/2022 ECHO Type 2 diabetes mellitus HTN (hypertension) Surgical History History of amputation of great toe S/P CABG x ~2021, went to ER w/"anxiety," found to be in congestive heart failure, had more cardiac testing, sent for f/u w/[facility], done @[facility]; f/u dr. mckeon Hx of cardiac catheterization 06/2021 [facility] History of open reduction and internal fixation (ORIF) procedure rt elbow and lt wrist>hardware intact Hx of colonoscopy History of left knee surgery 1988-tibial plateau reconstruction History of eye surgery retina History of cataract extraction rt/lt Social History Smoking Status: Former smoker Tobacco Type: Cigarettes Cigarettes Per Day: 6; Second Hand Exposure: No; Do You Dip or Chew Tobacco: No; Hx Alcohol Use: Yes Hx Substance Use: Yes Last Used Substance: Unknown Last Used Substance Other:: quit 1999-stated "used every drug known to man" Substance Use Type Other:: IV Drugs. Preferred Language: Turkish Communication Ability: Unable Structural Rigger Required: No Beliefs That Will Affect Care: None Current Living Situation: Other Current Living Situation Comment: Julio residing @ [facility] current occupational status: disabled How many Children do You have: 1 Feels Safe at Home: Yes Assistive Devices: Walker Review of Systems Review of Systems: Unobtainable due to reduced consciousness Physical Exam Constitutional: WD/WN, vitals as above + lethargic; no acute distress Eyes: PERRL Respiratory: normal respiratory effort; no cough Auscultation: + rhonchi (occasional upper airway); no crackles and no wheezes Cardiovascular: RRR, no murmur, no edema Gastrointestinal (Abdomen): normal bowel sounds, soft, nontender, no hepatosplenomegaly Neurologic: moves all extremities and + confused; no focal motor deficits and + not awake (But will wake up to loud verbal stimulus for me) Speech / Cognition: + abnormal speech (not speaking or even trying to speak) Motor/Sensory: + tremor (Bilateral upper and lower extremity myoclonic jerks and tremors) Psychiatric: Orientation: alert; + not oriented x 3 Results & Data Results & Data Vital Signs (Past 12 Hours) Vital Signs Temp Pulse Pulse Resp BP BP Pulse Ox 09/02/23 12:10 36.4 C L 85 20 130/63 93 09/02/23 12:09 36.7 C 83 18 137/63 09/02/23 12:08 36.5 C 100 H 16 128/65 94 09/02/23 12:06 36.5 C 20 145/72 H 94 09/02/23 11:26 36.5 C 20 L 90 H 145 H 09/02/23 11:20 36.5 C 95 H 16 145/72 H 92 09/02/23 11:03 37.1 C 108 H 24 145/72 H 94 09/02/23 10:47 37.1 C 99 H 18 145/72 H 91 09/02/23 10:44 37 C 20 134/68 91 09/02/23 10:25 37 C 107 H 22 152/77 H 94 09/02/23 10:16 36.7 C 100 H 20 163/81 H 91 09/02/23 10:14 36.7 C 22 156/78 H 91 09/02/23 09:53 37 C 104 H 24 132/63 96 09/02/23 09:21 36.7 C 109 H 22 138/75 95 09/02/23 09:06 37.0 C 106 H 18 128/71 97 09/02/23 08:48 37.0 C 109 H 19 156/74 H 96 09/02/23 07:35 36.8 C 109 H 18 167/74 H 96 09/02/23 07:01 09/02/23 04:09 37.1 C 122 H 20 137/78 93 09/02/23 01:13 37.1 C 94 H 20 113/63 98 O2 Del Method O2 Flow Rate 09/02/23 12:10 09/02/23 12:09 09/02/23 12:08 09/02/23 12:06 09/02/23 11:26 09/02/23 11:20 09/02/23 11:03 09/02/23 10:47 09/02/23 10:44 09/02/23 10:25 2 09/02/23 10:16 2 09/02/23 10:14 2 09/02/23 09:53 2 09/02/23 09:21 2 09/02/23 09:06 2 09/02/23 08:48 2 09/02/23 07:35 Nasal Cannula 2 09/02/23 07:01 Nasal Cannula 2 09/02/23 04:09 Nasal Cannula 2 09/02/23 01:13 Nasal Cannula 2 Critical Care Results & Data Vital Signs (Past 12 Hours) Vital Signs Temp Pulse Pulse Resp BP BP Pulse Ox 09/02/23 12:10 36.4 C L 85 20 130/63 93 09/02/23 12:09 36.7 C 83 18 137/63 09/02/23 12:08 36.5 C 100 H 16 128/65 94 09/02/23 12:06 36.5 C 20 145/72 H 94 09/02/23 11:26 36.5 C 20 L 90 H 145 H 09/02/23 11:20 36.5 C 95 H 16 145/72 H 92 09/02/23 11:03 37.1 C 108 H 24 145/72 H 94 09/02/23 10:47 37.1 C 99 H 18 145/72 H 91 09/02/23 10:44 37 C 20 134/68 91 09/02/23 10:25 37 C 107 H 22 152/77 H 94 09/02/23 10:16 36.7 C 100 H 20 163/81 H 91 09/02/23 10:14 36.7 C 22 156/78 H 91 09/02/23 09:53 37 C 104 H 24 132/63 96 09/02/23 09:21 36.7 C 109 H 22 138/75 95 09/02/23 09:06 37.0 C 106 H 18 128/71 97 09/02/23 08:48 37.0 C 109 H 19 156/74 H 96 09/02/23 07:35 36.8 C 109 H 18 167/74 H 96 09/02/23 07:01 09/02/23 04:09 37.1 C 122 H 20 137/78 93 09/02/23 01:13 37.1 C 94 H 20 113/63 98 O2 Del Method O2 Flow Rate 09/02/23 12:10 09/02/23 12:09 09/02/23 12:08 09/02/23 12:06 09/02/23 11:26 09/02/23 11:20 09/02/23 11:03 09/02/23 10:47 09/02/23 10:44 09/02/23 10:25 2 09/02/23 10:16 2 09/02/23 10:14 2 09/02/23 09:53 2 09/02/23 09:21 2 09/02/23 09:06 2 09/02/23 08:48 2 09/02/23 07:35 Nasal Cannula 2 09/02/23 07:01 Nasal Cannula 2 09/02/23 04:09 Nasal Cannula 2 09/02/23 01:13 Nasal Cannula 2 Lab & Micro Results (Past 24 Hours) RBC 2.45 M/uL (4.70-6.10) L 09/02/23 WBC 7.22 K/ul (4.8-10.8) 09/02/23 Hgb 6.6 g/dl (14.0-18.0) L* 09/02/23 Hct 20.1 % (42.0-52.0) L* 09/02/23 MCV 82.0 fL (80.0-100.0) 09/02/23 MCH 26.9 pg (25.0-34.0) 09/02/23 MCHC 32.8 g/dL (32.0-36.0) 09/02/23 RDW Standard Deviation 57.1 fL (36.4-46.3) H 09/02/23 RDW Coefficient of Variation 19.2 % (11.5-14.5) H 09/02/23 Plt Count 19 K/uL (130-400) L* 09/02/23 MPV 12.7 fL (9.4-12.4) H 09/02/23 Neutrophils (%) (Auto) 80.8 % 09/02/23 Lymphocytes (%) (Auto) 7.8 % 09/02/23 Monocytes # (Auto) 0.69 K/uL (0.11-0.59) H 09/02/23 Eosinophils # (Auto) 0.04 K/uL (0.00-0.50) 09/02/23 Immature Granulocyte % (Auto) 0.8 % 09/02/23 Neutrophils # (Auto) 5.84 K/uL (1.40-6.50) 09/02/23 Lymphocytes # (Auto) 0.56 K/uL (1.20-3.40) L 09/02/23 Monocytes # (Auto) 0.69 K/uL (0.11-0.59) H 09/02/23 Eosinophils # (Auto) 0.04 K/uL (0.00-0.50) 09/02/23 Basophils # (Auto) 0.03 K/uL (0.00-0.20) 09/02/23 Immature Granulocyte # (Auto) 0.06 K/uL (0.01-0.20) 4 Red Blood Cell Morphology Unremarkable 09/02/23 Na 135 mmol/L (136-145) L 09/02/23 K 4.1 mmol/L (3.5-5.1) 09/02/23 Cl 101 mmol/L (98-107) 09/02/23 CO2 22 mmol/L (21-32) 09/02/23 Anion Gap 12 (3-11) H 09/02/23 BUN 79 mg/dl (6-23) H 09/02/23 Creatinine 6.89 mg/dl (0.6-1.4) H* 09/02/23 Estimated GFR ( Amer) 8.5 ml/min 09/02/23 Estimated GFR (Non-Af Amer) 7.3 ml/min 09/02/23 BUN/Creatinine Ratio 11.5 (10-20) 09/02/23 Glu 142 mg/dl (70-99(Fasting)) H 09/02/23 Ca 7.1 mg/dl (8.6-10.3) L 09/02/23 Phosphorus Level 3.6 mg/dl (2.5-4.9) 09/02/23 Total Bilirubin 0.4 mg/dl (0.2-1.0) 09/02/23 AST 14 U/L (13-39) 09/02/23 ALT 9 U/L (7-52) 09/02/23 Alkaline Phosphatase 72 U/L (34-104) 09/02/23 TP 5.4 gm/dl (6.0-8.3) L 09/02/23 Albumin 2.4 gm/dl (3.4-5.0) L 09/02/23 Globulin 3.0 gm/dl (2.5-4.0) 09/02/23 Albumin/Globulin Ratio 0.8 (0.9-2) L 09/02/23 Mg 1.2 mg/dl (1.7-2.4) L 09/02/23 04:50 Calcium Level 7.1 mg/dl (8.6-10.3) L 09/02/23 04:50 Prothromb Time International Ratio 1.7 (0.9-1.1) H 09/02/23 04 :50 Arterial Blood pH 7.30 (7.35-7.45) L 09/01/23 17:09 Arterial Blood Partial Pressure CO2 38 mmHg (35-46) 09/01/23 17 :09 Arterial Blood Partial Pressure O2 78 mmHg (80-95) L 09/01/23 1 7:09 Arterial Blood HCO3 19 mmol/L (19-24) 09/01/23 17:09 Arterial Blood Base Excess -7.1 mEq/L (-9-1.8) 09/01/23 17:09 Arterial Blood Oxygen Saturation 97.8 % (90-95) H 09/01/23 17:0 9 Blood Gas Oxygen Given FLOW RATE 2 09/01/23 17:09 Nico Test Pos (Pos) 09/01/23 17:09 Diagnostic Findings (Past 24 Hours) Chest X-Ray 09/02/23 10:48 XR chest 1V portable HISTORY: line placement COMPARISON: Chest 08/30/2023. FINDINGS: A right PICC terminates in the SVC. Interval placement of a right jug ular central venous catheter which also terminates in the proximal SVC. No pneumothorax. No pleural effusions. The heart is borderline enlarged. There are poststernotomy changes. No acute fractures. Scattered pulmonary nodules are better appreciated on a prior chest CT. There is mild central pulmonary vascular congestion without overt edema. IMPRESSION: 1. Satisfactory support line placement. No pneumothorax. 2. Cardiomegaly and mild congestive change. 3. Scattered pulmonary nodules are better appreciated on the prior chest CT. ACT 112: Negative or not required by law. Electronically signed by: Vaibhav Adams M.D. 09/02/2023 11:21 AM I & O Totals 24 Hours 09/01/23 09/02/23 09/03/23 06:59 06:59 06:59 Intake Total 3058.334 / 3058.334 3813.750 / 3813.750 1164 / 1164 Output Total 160 / 160 525 / 525 Balance 2898.334 / 2898.334 3288.750 / 3288.750 1164 / 1164 Cumulative 08/30/23 22:05 thru 09/02/23 12:06 Intake Total 70377.751 Output Total 985 Balance 9629.751 RT Ventilator Mngmt (Last Documented) Ventilator Ordered Settings Respiratory Rate 20 09/02/23 12:10 Ventilator - PT Measurements Respiratory Rate 20 Coding Level of Care Code 18245 IN/OBS CONSULT LVL 4,60M Diagnoses Acute renal failure N17.9 Thrombocytopenia D69.6 Acute metabolic encephalopathy G93.41 Anemia D64.9 Anemia type: unspecified type (4) Anemia Anemia type: unspecified type Qualified Code(s): D64.9 - Anemia, unspecified
--- NOTE | 2023-09-02 12:37 | Nephrology Progress Note ---
Date of Service September 02, 2023 Assessment & Plan (1) Acute renal failure: (2) AMS (altered mental status): (3) Anemia: (4) Acidosis: (5) Thrombocytopenia: Plan 72-year-old gentleman with stage III B CKD, b/l cr 1.5-1.6 mg/dl, chronic mild hyponatremia, hypertension, diabetes, coronary artery disease, CHF, admitted with AMS, FLORECITA. Urinalysis with low-grade proteinuria and microscopic hematuria, no pyuria. Renal ultrasound and CT abdomen pelvis from this morning was otherwi se unremarkable no postrenal obstruction, retroperitoneal bleed. Was on cefepime and doxycycline which he has been for few weeks for left foot osteomyelitis. On admission creatinine was 4.0 which has been rapidly worsening Potassium improved to 4.8 and bicarb 18. Progressive worsening of kidney function with anuria and AMS. Urine output has been low only 50 mL over last 24 hours. Blood pressure has been variable but no significant hypotensive episode. Hemoglobin dropped further to 6.6. Platelet has been dropping since admission and down to <20 this morning. FLORECITA possibly secondary to ATN, although platelet is low, no significant hematuria on UA, LFTs are normal, unlikely renal vasculitis or microangiopathy. Although he was on cefepime for weeks, AIN seems less likely. --discontinue IV fluid --urgent hemodialysis for 2 h with low blood flow via temporary catheter after platelet transfusion and Vit K --dose meds for eGFR <10 Admission and Anticipated Discharge Date Admission Date: August 31, 2023 Varghese Ross was seen and evaluated this morning. He remains clinically about the same, kept eyes close but opened briefly but did not talk. Continues to have jerking movements. UO low only 50 cc with rapid worsening of cr. Hb dropped to 66 , pls <20. BP fair, no respiratory distress. Review of Systems Review of Systems: Detailed review of system was not possible because of the mental status. Physical Exam Constitutional: WD/WN, vitals as above + ill appearing and + altered mental status; no acute distress Eyes: PERRL Respiratory: normal respiratory effort; no cough Auscultation: + rhonchi (occasional upper airway); no crackles and no wheezes Cardiovascular: RRR, no murmur, no edema Neurologic: moves all extremities and + confused Motor/Sensory: + tremor (Bilateral upper and lower extremity myoclonic jerks and tremors) Psychiatric: Orientation: alert; + not oriented x 3 Results & Data Vital Signs (Past 12 Hours) Vital Signs Temp Pulse Pulse Resp BP BP Pulse Ox 09/02/23 12:10 36.4 C L 85 20 130/63 93 09/02/23 12:09 36.7 C 83 18 137/63 09/02/23 12:08 36.5 C 100 H 16 128/65 94 09/02/23 12:06 36.5 C 20 145/72 H 94 09/02/23 11:26 36.5 C 20 L 90 H 145 H 09/02/23 11:20 36.5 C 95 H 16 145/72 H 92 09/02/23 11:03 37.1 C 108 H 24 145/72 H 94 09/02/23 10:47 37.1 C 99 H 18 145/72 H 91 09/02/23 10:44 37 C 20 134/68 91 09/02/23 10:25 37 C 107 H 22 152/77 H 94 09/02/23 10:16 36.7 C 100 H 20 163/81 H 91 09/02/23 10:14 36.7 C 22 156/78 H 91 09/02/23 09:53 37 C 104 H 24 132/63 96 09/02/23 09:21 36.7 C 109 H 22 138/75 95 09/02/23 09:06 37.0 C 106 H 18 128/71 97 09/02/23 08:48 37.0 C 109 H 19 156/74 H 96 09/02/23 07:35 36.8 C 109 H 18 167/74 H 96 09/02/23 07:01 09/02/23 04:09 37.1 C 122 H 20 137/78 93 09/02/23 01:13 37.1 C 94 H 20 113/63 98 O2 Del Method O2 Flow Rate 09/02/23 12:10 09/02/23 12:09 09/02/23 12:08 09/02/23 12:06 09/02/23 11:26 09/02/23 11:20 09/02/23 11:03 09/02/23 10:47 09/02/23 10:44 09/02/23 10:25 2 09/02/23 10:16 2 09/02/23 10:14 2 09/02/23 09:53 2 09/02/23 09:21 2 09/02/23 09:06 2 09/02/23 08:48 2 09/02/23 07:35 Nasal Cannula 2 09/02/23 07:01 Nasal Cannula 2 09/02/23 04:09 Nasal Cannula 2 09/02/23 01:13 Nasal Cannula 2 PG Care Time/CCT Total # of Minutes Spent Total Time Spent with Patient: Total time spent is greater than 50% in coordination of care (as documented) at patient's floor/unit and/or counseling patient: Coding Level of Care Code 66395 SUB INP/OBS CARE 3/50MIN Diagnoses Acute renal failure N17.9 AMS (altered mental status) R41.82 Anemia D64.9 Anemia type: unspecified type Acidosis E87.20 Thrombocytopenia D69.6 (3) Anemia Anemia type: unspecified type Qualified Code(s): D64.9 - Anemia, unspecified
[2023-09-02 13:42] LABS: Basophils # (auto) 0.02 K/uL (0.00-0.20); Basophils % (auto) 0.4 %; Eosinophils # (auto) 0.05 K/uL (0.00-0.50); Hematocrit (blood only) 21.3 % (42.0-52.0); Immature Granulocytes # (auto) 0.06 K/uL (0.01-0.20); Immature Granulocytes % (auto) 1.1 %; Lymphocytes # (auto) 0.53 K/uL (1.20-3.40); Lymphocytes % (auto) 10.2 %; Mean Corpuscular Hemoglobin 27.2 pg (25.0-34.0); Mean Corpuscular Hgb Conc 32.9 g/dL (32.0-36.0); Mean Corpuscular Volume 82.9 fL (80.0-100.0); Mean Platelet Volume 12.3 fL (9.4-12.4); Monocytes # (auto) 0.35 K/uL (0.11-0.59); Monocytes % (auto) 6.7 %; Neutrophils # (auto) 4.21 K/uL (1.40-6.50); Neutrophils % (auto) 80.6 %; Platelet Count 31 K/uL (130-400); RDW Standard Deviation 54.1 fL (36.4-46.3); Red Blood Count 2.57 M/uL (4.70-6.10); White Blood Count 5.22 K/ul (4.8-10.8)
[2023-09-02 14:05] LABS: INR 1.4 (0.9-1.1); Prothrombin Time 14.6 Seconds (9.0-12.0)
[2023-09-02 14:07] LABS: Hypochromasia Present
[2023-09-02 15:19] LABS: HepB Surface Ag with confirm Negative (Negative)
[2023-09-02 15:28] LABS: Hepatitis B Surface Ab Quant 3.45 mIU/mL (>or=10mIU/mL Immune); Hepatitis B Surface Antibody Non-Immune
[2023-09-02 17:52] LABS: Hematocrit (blood only) 20.9 % (42.0-52.0); Hemoglobin 6.9 g/dl (14.0-18.0); Mean Corpuscular Hemoglobin 26.8 pg (25.0-34.0); Mean Corpuscular Volume 81.3 fL (80.0-100.0); Mean Platelet Volume 11.5 fL (9.4-12.4); Platelet Count 29 K/uL (130-400); RDW Coefficient of Variation 17.9 % (11.5-14.5); Red Blood Count 2.57 M/uL (4.70-6.10)
[2023-09-02] MEDS: CALCIUM GLUCONATE 1,000 MG/60 ML BAG IV STA (20:43)
[2023-09-02 23:38] LABS: Hematocrit (blood only) 22.7 % (42.0-52.0); Hemoglobin 7.7 g/dl (14.0-18.0); Mean Corpuscular Hemoglobin 27.9 pg (25.0-34.0); Mean Corpuscular Hgb Conc 33.9 g/dL (32.0-36.0); Mean Corpuscular Volume 82.2 fL (80.0-100.0); Mean Platelet Volume 10.9 fL (9.4-12.4); Platelet Count 31 K/uL (130-400); RDW Coefficient of Variation 17.4 % (11.5-14.5); RDW Standard Deviation 52.3 fL (36.4-46.3); Red Blood Count 2.76 M/uL (4.70-6.10); White Blood Count 5.92 K/ul (4.8-10.8)
[2023-09-03] MEDS ORDERED: SODIUM CHLORIDE 0.9% 250 ML IV PRN (01:09)
--- NOTE | 2023-09-03 06:26 | Progress Note ---
Date of Service September 03, 2023 Assessment & Plan (1) Thrombocytopenia: (2) AMS (altered mental status): (3) Osteomyelitis of foot, left, acute: (4) Anemia: Anemia type: unspecified type Qualified Code(s): D64.9 - Anemia, unspecified Plan -Although LDH, bilirubin within normal limits and not suggestive of hemolytic anemia, UZAIR is positive. Also has a likely drug-induced thrombocytopenia for which he would ideally benefit from high-dose steroids since he continues to require platelet transfusions. However, given osteomyelitis concerned about placing him on high-dose steroids. Will discuss with nephrology to see if IVIG would be safe in the setting as this could potentially worsen renal function.If okay to give, will give 1 g/kg of IVIG x 2 doses. -Prolonged PT/INR, PTT possibly due to severe vitamin K deficiency or mild DIC. Has improved with FFP/vitamin K. Continue to monitor. If it worsens, likely due to DIC and recommend rechecking fibrinogen at that time to see if he may benefit from cryoprecipitate. Admission and Anticipated Discharge Date Admission Date: August 31, 2023 Subjective Received FFP, platelets and PRBC transfusion yesterday. Underwent first dialysis session yesterday. Results & Data Vital Signs (Past 12 Hours) Vital Signs Temp Pulse Pulse Pulse Resp BP BP 09/03/23 05:07 37.2 C 105 H 20 154/72 H 09/03/23 04:07 37.2 C 105 H 20 152/75 H 09/03/23 03:23 37 C 111 H 20 155/77 H 09/03/23 03:07 37.3 C 102 H 20 151/72 H 09/03/23 02:52 37.3 C 104 H 20 154/79 H 09/03/23 02:37 37.1 C 106 H 20 152/73 H 09/03/23 02:21 37.0 C 98 H 20 154/75 H 09/03/23 00:51 106 H 09/02/23 23:04 37.3 C 102 H 20 159/76 H 09/02/23 22:53 36.5 C 107 H 18 161/77 H 09/02/23 22:06 37.0 C 100 H 20 167/74 H 09/02/23 21:38 36.5 C 103 H 20 162/70 H 09/02/23 21:06 36.8 C 100 H 20 162/77 H 09/02/23 20:51 36.7 C 99 H 20 167/76 H 09/02/23 20:51 09/02/23 20:30 36.9 C 97 H 18 165/77 H 09/02/23 20:13 36.8 C 89 18 167/89 H 09/02/23 20:13 36.6 C 85 18 158/71 H 09/02/23 19:03 36.3 C L 96 H 18 172/77 H 09/02/23 18:33 36.3 C L 95 H 20 168/76 H Pulse Ox O2 Del Method O2 Flow Rate 09/03/23 05:07 93 1 09/03/23 04:07 91 1 09/03/23 03:23 94 09/03/23 03:07 92 09/03/23 02:52 93 1 09/03/23 02:37 93 1 09/03/23 02:21 94 09/03/23 00:51 09/02/23 23:04 94 09/02/23 22:53 95 Nasal Cannula 09/02/23 22:06 97 Nasal Cannula 1 09/02/23 21:38 96 Nasal Cannula 1 09/02/23 21:06 96 Nasal Cannula 1 09/02/23 20:51 95 09/02/23 20:51 Nasal Cannula 1 09/02/23 20:30 90 09/02/23 20:13 93 09/02/23 20:13 92 09/02/23 19:03 94 09/02/23 18:33 96
[2023-09-03 07:01] LABS: Basophils # (auto) 0.02 K/uL (0.00-0.20); Basophils % (auto) 0.3 %; Eosinophils # (auto) 0.15 K/uL (0.00-0.50); Eosinophils % (auto) 2.6 %; Hematocrit (blood only) 21.3 % (42.0-52.0); Hemoglobin 7.3 g/dl (14.0-18.0); Immature Granulocytes # (auto) 0.04 K/uL (0.01-0.20); Immature Granulocytes % (auto) 0.7 %; Lymphocytes # (auto) 0.56 K/uL (1.20-3.40); Lymphocytes % (auto) 9.6 %; Mean Corpuscular Hemoglobin 28.3 pg (25.0-34.0); Mean Corpuscular Hgb Conc 34.3 g/dL (32.0-36.0); Mean Corpuscular Volume 82.6 fL (80.0-100.0); Mean Platelet Volume 11.2 fL (9.4-12.4); Monocytes # (auto) 0.67 K/uL (0.11-0.59); Monocytes % (auto) 11.5 %; Neutrophils # (auto) 4.37 K/uL (1.40-6.50); Neutrophils % (auto) 75.3 %; Platelet Count 33 K/uL (130-400); RDW Coefficient of Variation 17.4 % (11.5-14.5); RDW Standard Deviation 52.7 fL (36.4-46.3); Red Blood Count 2.58 M/uL (4.70-6.10); White Blood Count 5.81 K/ul (4.8-10.8)
[2023-09-03 07:17] LABS: RBC Morphology Unremarkable
[2023-09-03 07:26] LABS: INR 1.3 (0.9-1.1); Prothrombin Time 13.9 Seconds (9.0-12.0)
[2023-09-03 07:27] LABS: Albumin Globulin Ratio 0.9 (0.9-2); Albumin Level 2.5 gm/dl (3.4-5.0); BUN Creatinine Ratio 12.3 (10-20); Bilirubin,Total 0.7 mg/dl (0.2-1.0); Calcium 7.2 mg/dl (8.6-10.3); Creatinine Clr Calc Pharmacy 15.1 ml/min; Est GFR (African American) 13.2 ml/min; Est GFR (Non-African American) 11.4 ml/min; Globulin 2.7 gm/dl (2.5-4.0); Magnesium 1.6 mg/dl (1.7-2.4); Phosphorus 3.9 mg/dl (2.5-4.9); Potassium 3.7 mmol/L (3.5-5.1); Total Protein 5.2 gm/dl (6.0-8.3)
[2023-09-03] MEDS: THIAMINE HCL 200 MG in SODIUM CHLORIDE 0.9% 50 ML IV SCH (08:09)
[2023-09-03] MEDS ORDERED: IMMUNE GLOBULIN (HUMAN) SOLN IV STA (08:25)
--- NOTE | 2023-09-03 10:42 | Hospitalist Progress Note ---
Date of Service September 03, 2023 Assessment & Plan (1) Acute renal failure: Plan: 72yo male with history of CAD, DM, HTN, AF, recent MRSA bacteremia and foot OM on antibiotics presenting from [facility] with metabolic encephalopathy/confusion as well as shaking, N/V. Patient found to have anion gapped metabolic acidosis, significant FLORECITA on CKD with elevated lactate pH on VBG=7.08. HCO3=14, AG=12. BUN elevated at 65 an Cr=5.34 (was 58 and 3.96, respectively at 04:15 on 08/30/23 and baseline pyrotechnics press tender 1.2-1.50) Hyperkalemia with K=5.4. No EKG changes present. He was treated with Insulin/D50 as well as calcium gluconate. IVF given as well. K+ now normal Renal ultrasound negative for obstruction CT abdomen/pelvis ordered on 08/31-again, no obstructive uropathy Further review of the records shows that he was resumed on Entresto as well as taking Jardiance, lisinopril, Lasix, and metformin after discharge last admission His creatinine started rising on 08/22 and then on next check on 08/29 was significantly elevated prompting this admission He also had some nausea and vomiting and poor p.o. intake the 2 days leading up to admission possibly from opioid use Most likely prerenal etiology causing ATN in the setting of taking multiple offending drugs as above Not likely AIN from antibiotics as UA not consistent with this CK normal, no rhabdo. Strategy Consultant worsened to 6.89 on 09/01 and he was oliguric. Acidosis is improving on a bicarbonate drip. He was transferred to the ICU for placement of dialysis catheter-appreciate dental nurse management Urgent dialysis catheter placed on 09/01 after giving FFP, platelets for coagulopathy Underwent dialysis on 09/01 and now again on 09/02 with mild improvement thus far in mentation. Urine output starting to warehouse picker significantly and pyrotechnics press tender trending downward to 4.78 Appreciate Nephrology consult Continue to monitor urine output, Huizar catheter in place Follow BMP Continue to HOLD home amlodipine while BPs soft to improve hemodynamics Holding home Entresto, Jardiance, metformin, and Lasix Encephalopathy not likely from uremia but more likely from toxicities from morphine, gabapentin, and cefepime in the setting of renal failure (2) Acute metabolic encephalopathy: Plan: Likely secondary to taking long acting morphine and gabapentin as well as cefepime in setting of FLORECITA--> toxicities of these medications can cause confusion, tremors Also could be some component of uremia as well as hypoglycemia although that is resolved and he is still not verbalizing or following commands Ammonia level normal, not retaining CO2 on ABG Renal failure is likely contributing somewhat as well CT head negative. I do not feel he would benefit or be able to hold still for an MRI brain at this point Continue supportive care, and now hoping that dialysis will dialyze out some of these toxic metabolites Discontinued morphine, cefepime, and gabapentin Improved more on 09/02 with being more alert and responding more to verbal stimuli, but still moans and not speaking, not following commands He has not had any p.o. intake since 08/28. Consider enteral feedings if not able to eat over the next couple of days (3) Thrombocytopenia: Plan: Platelets started dropping on outpatient labs on 08/22 and now are severely low at 19, with coffee-ground emesis and melena development on 09/01 CT abdomen/pelvis without splenomegaly He does have a liver mass which is noted from previous and will need follow-up when more stable Appreciate hematology consultation-given anemia and thrombocytopenia, workup ordered for TTP/HUS and was negative for evidence of microangiopathic hemolytic anemia. Workup for DIC negative Most likely secondary to linezolid which was just discontinued on 08/28 and is well-known to cause thrombocytopenias Potentially PPI, cefepime could cause thrombocytopenia's as well-cefepime has also been discontinued Given GI bleeding, transfused platelets on 09/01 (3 units) and plts are now up to 33 Follow-up HIT antibodies but 4 T score is 3-he is getting heparin flushes only through his PICC line Continue holding home Plavix and Eliquis Follow CBC (4) Anemia: Plan: Hemoglobin dropped acutely to 7.4 from 10.4 on 08/31 and dropped further to 6.9 on 09/01--> transfused 2 units PRBCs on 09/01 as also with melena Hemolysis labs are negative (TBili,LDH) except UZAIR/Geovani is positive CT abdomen/pelvis 09/01 negative for retroperitoneal bleeding B12 folate and iron studies all ordered-folate is low-replace with 1 mg IV folic acid daily Likely also a component of anemia of chronic disease and renal failure Heme now more concerned about possible hemolytic anemia with +Geovani and will start IVIG IVIG may also help his thrombocytopenia from drug toxicity Follow CBC serially, transfuse as needed. Hgb today stable at 7.3 (5) GIB (gastrointestinal bleeding): Plan: As noted above Continue Protonix 40 mg IV twice daily Transfusing blood as needed Most likely gastritis or peptic ulcer disease Unstable for endoscopy at this time, no need for GI consult unless more urgent or worsening (6) Hypoglycemia: Plan: Patient with hypoglycemia on arrival likely from poor renal clearance of insulin in setting of FLORECITA-now resolved on D5 and fluids which have since been stopped on dialysis Continue to hold Lantus and give Novolog SSI only as needed (7) Acidosis: Plan: secondary to lactic acidosis and renal failure-now much improved after being on bicarb drip Now getting dialysis (8) MRSA bacteremia: Plan: Patient with OM of left foot and recent hospitalization for MRSA bacteremia and PNA. Had some gram negative rods on wound gram stain so empirically on Cefepime Continue Doxycycline 100mg po BID until 09/19/2023--> changed to IV given vomiting and inability to take po from encephalopathy Changed Cefepime to Cipro due to possible cefepime toxicity and cause of encephalopathy-renally dosed until 09/19/23 Continue wound care daily dressing changes and packing of the wound on the foot, consult Wound Care nurse No fevers or leukocytosis here to suggest recurrent infection f/u with Vascular was supposed to occur next week-will ask Vascular to see him in hospital on Tuesday Plan CAD - chronic. stable. no CP or evidence of cardiac ischemia -Holding Plavix for bleeding and thrombocytopenia, can give carvedilol, and atorvastatin when he is able to take p.o. HTN - Chronic. -Continue Carvedilol once able to take po but hold Amlodipine Depression/Anxiety - chronic -Continue Sertraline 75mg po daily when he is able to take p.o. Atrial Fibrillation - paroxysmal, in NSR here -Continue Amiodarone 200mg po daily when able to take p.o. -He typically is on Eliquis but this is currently on hold due to thrombocytopenia and bleeding -continue tele monitoring Neuropathy-HOLD gabapentin due to FLORECITA and encephalopathy DVT proph-hold any anticoagulation for now due to severe thrombocytopenia and bleeding Dispo-continued stay, prognosis guarded. Discussed all care with point of contact, Kadi. She and the patient's son have had discussions and all are in agreement to pursue temporary dialysis . They are also in agreement to pursue NG feeding tube if enteral feeds are needed, and all blood transfusion products if needed Admission and Anticipated Discharge Date Admission Date: August 31, 2023 Subjective Pt seen on dialysis today in conjunction with Nephrology. He is much more awake and alert today, purposefully turns his head and looks at me when I talk to him. Continues to groan and not speaking. His urine output has really picked up overnight. No further melena overnight except a small smear of black stool noted. I discussed his care with Nephrology and Hematology as well as his Kadi PIERCE Tele with NSR, ST rates 90-110s Physical Exam Constitutional: WD/WN, vitals as above no acute distress Respiratory: normal respiratory effort; no cough Auscultation: lungs clear to auscultation bilaterally Cardiovascular: Rate/Rhythm: regular rate and regular rhythm Heart Sounds: no murmur Extremities: + edema (1+ pitting edema all four ext) Gastrointestinal (Abdomen): normal bowel sounds, soft, nontender, no hepatosplenomegaly Neurologic: awake and + confused more purposeful today with tracking to verbal stimuli, still not speaking and not following commands Psychiatric: Orientation: alert; + not oriented x 3 Genitourinary: Huizar in place draining a good amount of clear yellow urine Results & Data Results & Data Vital Signs (Past 12 Hours) Vital Signs Temp Pulse Pulse Pulse Resp BP BP 09/03/23 10:30 93 H 162/83 H 09/03/23 10:00 95 H 162/80 H 09/03/23 09:30 96 H 162/81 H 09/03/23 09:20 36.9 C 106 H 09/03/23 07:59 37.0 C 105 H 19 153/73 H 09/03/23 05:07 37.2 C 105 H 20 154/72 H 09/03/23 04:07 37.2 C 105 H 20 152/75 H 09/03/23 03:23 37 C 111 H 20 155/77 H 09/03/23 03:07 37.3 C 102 H 20 151/72 H 09/03/23 02:52 37.3 C 104 H 20 154/79 H 09/03/23 02:37 37.1 C 106 H 20 152/73 H 09/03/23 02:21 37.0 C 98 H 20 154/75 H 09/03/23 00:51 106 H 09/02/23 23:04 37.3 C 102 H 20 159/76 H 09/02/23 22:53 36.5 C 107 H 18 161/77 H Pulse Ox O2 Del Method O2 Flow Rate 09/03/23 10:30 09/03/23 10:00 09/03/23 09:30 09/03/23 09:20 09/03/23 07:59 93 Nasal Cannula 1.0 09/03/23 05:07 93 1 09/03/23 04:07 91 1 09/03/23 03:23 94 09/03/23 03:07 92 09/03/23 02:52 93 1 09/03/23 02:37 93 1 09/03/23 02:21 94 09/03/23 00:51 09/02/23 23:04 94 09/02/23 22:53 95 Nasal Cannula Laboratory Results CBC, CMP, INR, magnesium, Geovani test reviewed PG Care Time/CCT Total # of Minutes Spent Total Time Spent with Patient: Total time spent is greater than 50% in coordination of care (as documented) at patient's floor/unit and/or counseling patient: Coding Level of Care Code 72371 SUB INP/OBS CARE 3/50MIN Diagnoses Acute renal failure N17.9 Acute metabolic encephalopathy G93.41 Thrombocytopenia D69.6 Anemia D64.9 Anemia type: unspecified type GIB (gastrointestinal bleeding) K92.2 GI bleed type/associated pathology: unspecified gastrointestinal hemorrhage type Hypoglycemia E16.2 Acidosis E87.20 MRSA bacteremia R78.81; B95.62 (4) Anemia Anemia type: unspecified type Qualified Code(s): D64.9 - Anemia, unspecified (5) GIB (gastrointestinal bleeding) GI bleed type/associated pathology: unspecified gastrointestinal hemorrhage type Qualified Code(s): K92.2 - Gastrointestinal hemorrhage, unspecified
--- NOTE | 2023-09-03 11:24 | Nephrology Progress Note ---
Date of Service September 03, 2023 Assessment & Plan (1) Acute renal failure: (2) AMS (altered mental status): (3) Anemia: (4) Acidosis: (5) Thrombocytopenia: Plan 72-year-old gentleman with stage III B CKD, b/l cr 1.5-1.6 mg/dl, chronic mild hyponatremia, hypertension, diabetes, coronary artery disease, CHF, admitted with AMS, FLORECITA. Urinalysis with low-grade proteinuria and microscopic hematuria, no pyuria. Renal ultrasound and CT abdomen pelvis from this morning was otherwi se unremarkable no postrenal obstruction, retroperitoneal bleed. Was on cefepime and doxycycline which he has been for few weeks for left foot osteomyelitis. On admission creatinine was 4.0 which has been rapidly worsening Potassium improved to 4.8 and bicarb 18. Started on dialysis on 09/01/2025 via temporary dialysis catheter for progressive worsening of kidney function with anuria and AMS. Tolerated first dialysis for 2 hours. Overnight urine output improved to 1 L. Clinically remained about the same although may be slightly more awake and alert today. --Dialysis today for 3 hours, will try to aim for 2 L UF. Since urine output improved, we will monitor without dialysis tomorrow and assess Tuesday for need for dialysis. --Okay to give IVIG for possible drug-induced thrombocytopenia --dose meds for eGFR <10 Admission and Anticipated Discharge Date Admission Date: August 31, 2023 Varghese Ross was seen during dialysis this morning. He seems slightly more awake and alert although 69 did not come any gait or answer question. Urine output improved to about 1 L over last 24 hours. Had dialysis yesterday for 2 hours, tolerated 1 L UF. Currently blood pressure elevated but otherwise vital signs stable. Tolerating dialysis with aim for 2 L UF today. Review of Systems Review of Systems: Detailed review of system was not possible because of the mental status. Physical Exam Constitutional: WD/WN, vitals as above + ill appearing and + altered mental status; no acute distress Eyes: PERRL Respiratory: normal respiratory effort; no cough Auscultation: no crackles and no wheezes Cardiovascular: RRR, no murmur, no edema Neurologic: moves all extremities and + confused Motor/Sensory: + tremor (Bilateral upper and lower extremity myoclonic jerks and tremors) Psychiatric: Orientation: alert; + not oriented x 3 Results & Data Vital Signs (Past 12 Hours) Vital Signs Temp Pulse Pulse Pulse Resp BP BP 09/03/23 11:00 93 H 169/86 H 09/03/23 10:30 93 H 162/83 H 09/03/23 10:00 95 H 162/80 H 09/03/23 09:30 96 H 162/81 H 09/03/23 09:20 36.9 C 106 H 09/03/23 07:59 37.0 C 105 H 19 153/73 H 09/03/23 05:07 37.2 C 105 H 20 154/72 H 09/03/23 04:07 37.2 C 105 H 20 152/75 H 09/03/23 03:23 37 C 111 H 20 155/77 H 09/03/23 03:07 37.3 C 102 H 20 151/72 H 09/03/23 02:52 37.3 C 104 H 20 154/79 H 09/03/23 02:37 37.1 C 106 H 20 152/73 H 09/03/23 02:21 37.0 C 98 H 20 154/75 H 09/03/23 00:51 106 H Pulse Ox O2 Del Method O2 Flow Rate 09/03/23 11:00 09/03/23 10:30 09/03/23 10:00 09/03/23 09:30 09/03/23 09:20 09/03/23 07:59 93 Nasal Cannula 1.0 09/03/23 05:07 93 1 09/03/23 04:07 91 1 09/03/23 03:23 94 09/03/23 03:07 92 09/03/23 02:52 93 1 09/03/23 02:37 93 1 09/03/23 02:21 94 09/03/23 00:51 PG Care Time/CCT Total # of Minutes Spent Total Time Spent with Patient: Total time spent is greater than 50% in coordination of care (as documented) at patient's floor/unit and/or counseling patient: Coding Level of Care Code 53788 SUB INP/OBS CARE 2/35MIN Diagnoses Acute renal failure N17.9 AMS (altered mental status) R41.82 Anemia D64.9 Anemia type: unspecified type Acidosis E87.20 Thrombocytopenia D69.6 (3) Anemia Anemia type: unspecified type Qualified Code(s): D64.9 - Anemia, unspecified
[2023-09-03] MEDS: MAGNESIUM SULFATE / D5W 1 GM/100 ML BAG IV SCH (12:30)
[2023-09-03] MEDS: Octagam 10% IVIG 10 gram bottle IV SCH (12:43)
[2023-09-03] MEDS: CALCIUM GLUCONATE 1,000 MG/60 ML BAG IV SCH (12:54)
[2023-09-03] MEDS: Octagam 10% IVIG 20 gram bottle IV SCH (14:27)
[2023-09-04] MEDS: ACETAMINOPHEN 1,000 MG/100 ML VIAL IV STA ×2 (00:03→09:55)
[2023-09-04] MEDS ORDERED: Nursing to Pharmacy Communication SCH ×2 (02:00→08:45)
[2023-09-04] MEDS: INSULIN ASPART PER UNIT CHARGE SC SCH ×2 (05:58→11:45)
[2023-09-04 06:47] LABS: Hematocrit (blood only) 20.4 % (42.0-52.0); Hemoglobin 6.7 g/dl (14.0-18.0); Mean Corpuscular Hemoglobin 27.6 pg (25.0-34.0); Mean Corpuscular Hgb Conc 32.8 g/dL (32.0-36.0); Mean Platelet Volume 11.1 fL (9.4-12.4); Platelet Count 21 K/uL (130-400); RDW Coefficient of Variation 17.2 % (11.5-14.5); RDW Standard Deviation 52.8 fL (36.4-46.3); Red Blood Count 2.43 M/uL (4.70-6.10); White Blood Count 3.83 K/ul (4.8-10.8)
[2023-09-04 06:52] LABS: Albumin Level 2.2 gm/dl (3.4-5.0); BUN Creatinine Ratio 12.3 (10-20); Basophils # (auto) 0.02 K/uL (0.00-0.20); Basophils % (auto) 0.5 %; Bilirubin Direct 0.1 mg/dl (0-0.2); Bilirubin,Total 0.5 mg/dl (0.2-1.0); Calcium 7.2 mg/dl (8.6-10.3); Creatinine Clr Calc Pharmacy 22.8 ml/min; Eosinophils # (auto) 0.15 K/uL (0.00-0.50); Eosinophils % (auto) 3.9 %; Est GFR (African American) 21.7 ml/min; Est GFR (Non-African American) 18.7 ml/min; Immature Granulocytes # (auto) 0.01 K/uL (0.01-0.20); Immature Granulocytes % (auto) 0.3 %; Lymphocytes # (auto) 0.67 K/uL (1.20-3.40); Lymphocytes % (auto) 17.5 %; Magnesium 1.8 mg/dl (1.7-2.4); Monocytes # (auto) 0.46 K/uL (0.11-0.59); Neutrophils # (auto) 2.52 K/uL (1.40-6.50); Neutrophils % (auto) 65.8 %; Potassium 3.3 mmol/L (3.5-5.1); RBC Morphology Unremarkable; Total Protein 6.2 gm/dl (6.0-8.3)
[2023-09-04 06:54] LABS: INR 1.2 (0.9-1.1); Prothrombin Time 13.3 Seconds (9.0-12.0)
[2023-09-04] MEDS ORDERED: SODIUM CHLORIDE 0.9% 250 ML IV PRN (07:29)
[2023-09-04] MEDS: INSULIN ASPART PER UNIT CHARGE SC ONE (09:25)
--- NOTE | 2023-09-04 11:10 | Nephrology Progress Note ---
Date of Service September 04, 2023 Assessment & Plan (1) Acute renal failure: (2) AMS (altered mental status): (3) Anemia: (4) Acidosis: (5) Thrombocytopenia: Plan 72-year-old gentleman with stage III B CKD, b/l cr 1.5-1.6 mg/dl, chronic mild hyponatremia, hypertension, diabetes, coronary artery disease, CHF, admitted with AMS, FLORECITA. Urinalysis with low-grade proteinuria and microscopic hematuria, no pyuria. Renal ultrasound and CT abdomen pelvis from this morning was otherwi se unremarkable no postrenal obstruction, retroperitoneal bleed. Was on cefepime and doxycycline which he has been for few weeks for left foot osteomyelitis. On admission creatinine was 4.0 which has been rapidly worsening Potassium improved to 4.8 and bicarb 18. Started on dialysis on 09/02/2023 via temporary dialysis catheter for progressive worsening of kidney function with anuria and AMS and had second dialysis on 09/03/2023. Urine output improved. Clinically doing much better, awake, alert. Electrolyte acceptable today. Urine output improved. Started on IVIG for possible drug-induced thrombocytopenia. Received 2 PRBC on 09/02/23, platelet transfusion prior to placement of temporary dialysis catheter. Hb dropped again, Plt 21 --Check kidney function and electrolyte tomorrow for any further need for dialysis however most likely kidney function recovering and he will not need any dialysis. Consider removing temporary dialysis catheter tomorrow. --Recommend PRBC transfusion --dose meds for eGFR <10 Admission and Anticipated Discharge Date Admission Date: August 31, 2023 Varghese Ross was seen this morning with his friends at bedside. He was awake, alert, answering questions. Had second dialysis yesterday, BUN/creatinine improved, electrolyte acceptable. Urine output improved. Blood pressure elevated but otherwise vital signs stable. Review of Systems Review of Systems: Detailed review of system was not possible because of the mental status. Physical Exam Constitutional: WD/WN, vitals as above + ill appearing; no acute distress Eyes: PERRL Respiratory: normal respiratory effort; no cough Auscultation: no crackles and no wheezes Cardiovascular: RRR, no murmur, no edema Neurologic: moves all extremities; not confused Psychiatric: Orientation: alert and oriented x 3 Results & Data Vital Signs (Past 12 Hours) Vital Signs Temp Pulse Pulse Pulse Resp BP BP 09/04/23 10:44 81 16 169/76 H 09/04/23 10:14 37.0 C 80 16 171/75 H 09/04/23 09:59 37.0 C 90 16 167/75 H 09/04/23 09:57 36.9 C 84 16 168/73 H 09/04/23 09:42 37 C 84 20 161/70 H 09/04/23 09:00 82 09/04/23 09:00 09/04/23 08:00 36.7 C 104 H 18 158/76 H 09/04/23 02:49 37.2 C 93 H 20 159/80 H 09/04/23 00:28 96 H Pulse Ox O2 Del Method O2 Flow Rate 09/04/23 10:44 97 1 09/04/23 10:14 98 1 09/04/23 09:59 09/04/23 09:57 98 1 09/04/23 09:42 97 1 09/04/23 09:00 09/04/23 09:00 Nasal Cannula 1 09/04/23 08:00 96 Room Air 09/04/23 02:49 96 Nasal Cannula 09/04/23 00:28 PG Care Time/CCT Total # of Minutes Spent Total Time Spent with Patient: Total time spent is greater than 50% in coordination of care (as documented) at patient's floor/unit and/or counseling patient: Coding Level of Care Code 46413 SUB INP/OBS CARE 2/35MIN Diagnoses Acute renal failure N17.9 AMS (altered mental status) R41.82 Anemia D64.9 Anemia type: unspecified type Acidosis E87.20 Thrombocytopenia D69.6 (3) Anemia Anemia type: unspecified type Qualified Code(s): D64.9 - Anemia, unspecified
--- NOTE | 2023-09-04 13:05 | Hospitalist Progress Note ---
Date of Service September 04, 2023 Assessment & Plan (1) Acute renal failure: Plan: 72yo male with history of CAD, DM, HTN, AF, recent MRSA bacteremia and foot OM on antibiotics presenting from [facility] with metabolic encephalopathy/confusion as well as shaking, N/V. Patient found to have anion gapped metabolic acidosis, significant FLORECITA on CKD with elevated lactate pH on VBG=7.08. HCO3=14, AG=12. 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 No EKG changes present. He was treated with Insulin/D50 as well as calcium gluconate. IVF given as well. K+ now normal Renal ultrasound negative for obstruction CT abdomen/pelvis ordered on 08/31-again, no obstructive uropathy Further review of the records shows that he was resumed on Entresto as well as taking Jardiance, lisinopril, Lasix, and metformin after discharge last admission His creatinine started rising on 08/22 and then on next check on 08/29 was significantly elevated prompting this admission He also had some N/V and poor p.o. intake the 2 days leading up to admission possibly from opioid use Most likely prerenal etiology causing ATN in the setting of taking multiple offending drugs as above Not likely AIN from antibiotics as UA not consistent with this CK normal, no rhabdo. 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 Acidosis is improving on a bicarbonate drip. He was transferred to the ICU for placement of dialysis catheter-appreciate library page management Urgent dialysis catheter placed on 09/01 after giving FFP, platelets for coagulopathy Underwent dialysis on 09/01 and again on 09/02 with significant improvement now in mentation and renal function improving, urine output has picked up tremendously computer system technician trending downward to 3.17 Appreciate Nephrology consult Continue to monitor urine output, Huizar catheter in place Follow BMP Continue to HOLD home amlodipine while BPs soft to improve hemodynamics Holding home Entresto, Jardiance, metformin, and Lasix May be able to remove temporary dialysis catheter on Tuesday and not require further dialysis if continues to improve (2) Acute metabolic encephalopathy: Plan: Patient was completely nonverbal, significantly lethargic, not even able to respond to any commands for 3 to 4 days upon admission with significant myoclonic jerks in all [address] head negative Likely secondary to taking long acting morphine and gabapentin as well as cefepime in setting of FLORECITA--> toxicities of these medications can cause confusion, tremors Also could be some component of uremia Ammonia level normal, not retaining CO2 on ABG Renal failure is likely contributing somewhat as well Now s/p dialysis to dialyze out some of these toxic metabolites, on 09/03 mentation is significantly improved-he is conversational, no further tremors, is able to make his needs known. Still napping frequently Discontinued morphine, cefepime, and gabapentin checked B1 level and started empiric thiamine Advance diet as tolerated today however keep n.p.o. after midnight for possible EGD tomorrow now that mentation is improved and remains anemic (3) Thrombocytopenia: Plan: Platelets started dropping on outpatient labs on 08/22 and now are severely low at 19, with coffee-ground emesis and melena x 1 development on 09/01 CT abdomen/pelvis without splenomegaly He does have a liver mass which is noted from previous and will need follow-up when more stable Appreciate hematology consultation-given anemia and thrombocytopenia, workup ordered for TTP/HUS and was negative for evidence of microangiopathic hemolytic anemia. Workup for DIC negative Most likely secondary to linezolid which was just discontinued on 08/28 and is well-known to cause thrombocytopenias Potentially PPI, cefepime could cause thrombocytopenia's as well-cefepime has also been discontinued Given GI bleeding, transfused platelets on 09/01 (3 units) and plts were up to 33, now back down again to 17 but no further bleeding noted Follow-up HIT antibodies but 4 T score is 3-he is getting heparin flushes only through his PICC line Continue holding home Plavix and Eliquis Follow CBC Giving IVIG which could help drug-induced thrombocytopenia as per hematology Elevated INR-could be Vit K deficiency vs low grade DIC? Gave Vit K 10mg and FFP on 09/01, INR now down to 1.3, will follow levels. Check fibrinogen if INR rises again and consider cryoprecipitate as per Heme (4) Anemia: Plan: Hemoglobin dropped acutely to 7.4 from 10.4 on 08/31 and dropped further to 6.9 on 09/01--> transfused 2 units PRBCs on 09/01 as also with melena Hemolysis labs remain negative (TBili,LDH) except UZAIR/Geovani is positive CT abdomen/pelvis 09/01 negative for retroperitoneal bleeding B12 folate and iron studies all ordered-folate is low-replace with 1 mg folic acid daily Likely also a component of anemia of chronic disease and renal failure Heme now more concerned about possible hemolytic anemia with +Geovani and started IVIG-received 2 days worth of dosing Hemoglobin trended back downward again on 09/03-.7 with no further evidence of GI bleeding Transfuse 1 more unit of PRBCs on 09/03 Will make n.p.o. after midnight consult GI for possible EGD on 09/04 (5) Chronic pain: Plan: Patient complaining of severe pain in his feet from PAD and lower back now that he is awake and the morphine has been dialyzed out of his system Start low-dose oxycodone 5 mg p.o. every 8 hours as needed and would not escalate beyond this for now Can also give Tylenol as needed (6) GIB (gastrointestinal bleeding): Plan: As noted above Continue Protonix 40 mg IV twice daily Transfusing blood as needed Most likely gastritis or peptic ulcer disease Was to unstable for endoscopy at this time, but now that mentation improving and renal failure improving, will consult GI for possible EGD on Tuesday given hemoglobin continues to drop and there is no evidence of hemolysis or other explanation (7) Hypoglycemia: Plan: Patient with hypoglycemia on arrival likely from poor renal clearance of insulin in setting of FLORECITA-now resolved on D5 and fluids which have since been stopped on dialysis Continue to hold Lantus and give Novolog SSI only as needed (8) Acidosis: Plan: secondary to lactic acidosis and renal failure-now much improved after being on bicarb drip and receiving dialysis (9) MRSA bacteremia: Plan: Patient with OM of left foot and recent hospitalization for MRSA bacteremia and PNA. Had some gram negative rods on wound gram stain so empirically on Cefepime Continue Doxycycline 100mg po BID until 09/19/2023--> changed to IV given vomiting and inability to take po from encephalopathy Changed Cefepime to Cipro due to possible cefepime toxicity and cause of encephalopathy-renally dosed until 09/19/23 Continue wound care daily dressing changes and packing of the wound on the foot, consult Wound Care nurse No fevers or leukocytosis here to suggest recurrent infection f/u with Vascular was supposed to occur next week-will let vascular know that he is in the hospital if they want to see him in hospital on Tuesday Plan Hypomagnesemia-replace as needed to keep above 2.0, follow mag level in AM Hypocalcemia-may have been also contributing to tremors-replaced and now resolved after corrected for hypoalbuminemia CAD - chronic. stable. no CP or evidence of cardiac ischemia -Holding Plavix for bleeding and thrombocytopenia, can give carvedilol, and atorvastatin when he is able to take p.o. HTN - Chronic. -Continue Carvedilol once able to take po but hold Amlodipine Depression/Anxiety - chronic -Continue Sertraline 75mg po daily when he is able to take p.o. Atrial Fibrillation - paroxysmal, in NSR here -Continue Amiodarone 200mg po daily when able to take p.o. -He typically is on Eliquis but this is currently on hold due to thrombocytopenia and bleeding -continue tele monitoring Neuropathy-HOLD gabapentin due to FLORECITA and encephalopathy DVT proph-hold any anticoagulation for now due to severe thrombocytopenia and bleeding Dispo-continued stay, prognosis improving. Discussed all care with point of contact, Kadi. Admission and Anticipated Discharge Date Admission Date: August 31, 2023 Subjective The patient is wide-awake and alert today, having normal conversation for the first time in 4 days. He reports having a lot of pain in his lower back and his feet which is chronic for him. Denies shortness of breath or chest pains. No further melena overnight. Telemetry with normal sinus rhythm with rates in the 80s to 90s Physical Exam Constitutional: WD/WN, vitals as above no acute distress Respiratory: normal respiratory effort; no cough Auscultation: lungs clear to auscultation bilaterally Cardiovascular: RRR, no murmur, no edema Rate/Rhythm: regular rate and regular rhythm Heart Sounds: no murmur Extremities: + edema (1+ pitting edema all four ext) Gastrointestinal (Abdomen): normal bowel sounds, soft, nontender, no hepatosplenomegaly Neurologic: moves all extremities and awake; no focal motor deficits Psychiatric: Orientation: alert, oriented to person, oriented to place and cooperative Genitourinary: Huizar catheter in place draining 800 mL of clear yellow urine Results & Data Results & Data Vital Signs (Past 12 Hours) Vital Signs Temp Pulse Pulse Pulse Resp BP BP 09/04/23 12:36 37.1 C 83 16 166/77 H 09/04/23 12:05 36.4 C L 76 18 175/74 H 09/04/23 11:44 37.1 C 78 16 167/79 H 09/04/23 11:30 36.8 C 68 16 170/78 H 09/04/23 10:44 81 16 169/76 H 09/04/23 10:14 37.0 C 80 16 171/75 H 09/04/23 09:59 37.0 C 90 16 167/75 H 09/04/23 09:57 36.9 C 84 16 168/73 H 09/04/23 09:42 37 C 84 20 161/70 H 09/04/23 09:00 82 09/04/23 09:00 09/04/23 08:00 36.7 C 104 H 18 158/76 H 09/04/23 02:49 37.2 C 93 H 20 159/80 H Pulse Ox O2 Del Method O2 Flow Rate 09/04/23 12:36 94 09/04/23 12:05 92 Nasal Cannula 1.0 09/04/23 11:44 95 09/04/23 11:30 96 1 09/04/23 10:44 97 1 09/04/23 10:14 98 1 09/04/23 09:59 09/04/23 09:57 98 1 09/04/23 09:42 97 1 09/04/23 09:00 09/04/23 09:00 Nasal Cannula 1 09/04/23 08:00 96 Room Air 09/04/23 02:49 96 Nasal Cannula Laboratory Results CBC x 2, BMP, INR, magnesium reviewed PG Care Time/CCT Total # of Minutes Spent Total Time Spent with Patient: Total time spent is greater than 50% in coordination of care (as documented) at patient's floor/unit and/or counseling patient: Coding Level of Care Code 04342 SUB INP/OBS CARE 3/50MIN Diagnoses Acute renal failure N17.9 Acute metabolic encephalopathy G93.41 Thrombocytopenia D69.6 Anemia D64.9 Anemia type: unspecified type Chronic pain G89.29 GIB (gastrointestinal bleeding) K92.2 GI bleed type/associated pathology: unspecified gastrointestinal hemorrhage type Hypoglycemia E16.2 Acidosis E87.20 MRSA bacteremia R78.81; B95.62 (4) Anemia Anemia type: unspecified type Qualified Code(s): D64.9 - Anemia, unspecified (6) GIB (gastrointestinal bleeding) GI bleed type/associated pathology: unspecified gastrointestinal hemorrhage type Qualified Code(s): K92.2 - Gastrointestinal hemorrhage, unspecified
[2023-09-04] MEDS: oxyCODONE HCL IR 5 MG TAB (IMMEDIATE RELEASE) PO PRN (14:44)
[2023-09-04] MEDS: Octagam 10% IVIG 10 gram bottle IV SCH (14:46)
[2023-09-04] MEDS: Octagam 10% IVIG 20 gram bottle IV SCH (15:20)
[2023-09-04] MEDS: ACETAMINOPHEN 500 MG TAB PO PRN (17:31)
[2023-09-04 18:48] LABS: Hematocrit (blood only) 21.7 % (42.0-52.0); Hemoglobin 7.5 g/dl (14.0-18.0); Mean Corpuscular Hgb Conc 34.6 g/dL (32.0-36.0); Mean Corpuscular Volume 86.8 fL (80.0-100.0); Platelet Count 18 K/uL (130-400); RDW Coefficient of Variation 16.7 % (11.5-14.5); RDW Standard Deviation 50.7 fL (36.4-46.3); White Blood Count 3.84 K/ul (4.8-10.8)
[2023-09-05 07:29] LABS: Albumin Globulin Ratio 0.4 (0.9-2); Albumin Level 2.2 gm/dl (3.4-5.0); BUN Creatinine Ratio 16.3 (10-20); Bilirubin,Total 0.6 mg/dl (0.2-1.0); Creatinine Clr Calc Pharmacy 23.6 ml/min; Est GFR (African American) 22.6 ml/min; Est GFR (Non-African American) 19.5 ml/min; Globulin 5.1 gm/dl (2.5-4.0); Magnesium 1.6 mg/dl (1.7-2.4); Potassium 3.2 mmol/L (3.5-5.1); Total Protein 7.3 gm/dl (6.0-8.3)
[2023-09-05 07:35] LABS: INR 1.2 (0.9-1.1); Prothrombin Time 12.6 Seconds (9.0-12.0)
[2023-09-05 07:36] LABS: Hematocrit (blood only) 23.2 % (42.0-52.0); Hemoglobin 7.8 g/dl (14.0-18.0); Mean Corpuscular Hemoglobin 28.5 pg (25.0-34.0); Mean Corpuscular Hgb Conc 33.6 g/dL (32.0-36.0); Mean Corpuscular Volume 84.7 fL (80.0-100.0); Platelet Count 21 K/uL (130-400); RDW Coefficient of Variation 16.7 % (11.5-14.5); RDW Standard Deviation 50.6 fL (36.4-46.3); Red Blood Count 2.74 M/uL (4.70-6.10); White Blood Count 4.45 K/ul (4.8-10.8)
[2023-09-05 07:42] LABS: Basophils # (auto) 0.02 K/uL (0.00-0.20); Basophils % (auto) 0.4 %; Eosinophils # (auto) 0.19 K/uL (0.00-0.50); Eosinophils % (auto) 4.3 %; Immature Granulocytes # (auto) 0.03 K/uL (0.01-0.20); Immature Granulocytes % (auto) 0.7 %; Lymphocytes # (auto) 0.65 K/uL (1.20-3.40); Lymphocytes % (auto) 14.6 %; Monocytes # (auto) 0.58 K/uL (0.11-0.59); Neutrophils # (auto) 2.98 K/uL (1.40-6.50); RBC Morphology Unremarkable
[2023-09-05] MEDS: FOLIC ACID 1 MG TAB PO SCH (08:40)
--- NOTE | 2023-09-05 10:50 | Gastrointestinal Consultation ---
<Statement entered by Anabel Rankin MD - 09/05/23 17:28> I have examined the patient, reviewed the History & Physical and in the interval since the performance of the History & Physical I have noted the following changes of clinical significance: no changes noted. I agree with the documentation provided by ASTRID Estrada. Multifactorial anemia. GI bleeding is a concern but the endoscopic risk outweighs the benefit at this time. Focus should be to address his coagulopathy related to thrombocytopenia, renal failure and medications at this time. Will continue to follow. While the risk of endoscopy at this time outweighs the benefit and as he has also declined an EGD, an endoscopy/colonoscopy should be reconsidered throughout the course of his hospitalization depending on his clinical status. Date of Consultation September 05, 2023 Assessment & Plan (1) Anemia: Patient admitted with ARF, anemia, and altered mental status. His mental status has improved. GI consulted for melena and anemia. hgb currently stable but he has been passing small, dark stools per nursing. - I discussed with the patient about having an EGD to further evaluate the melena but he tells me he does not want any endoscopic procedures at this time. - he would like to trial clears. okay for clears since he refuses endoscopy. - continue with protonix 40mg IV BID. - follow hgb/hct and transfuse as needed. History of Present Illness Reason for Consultation: melena, anemia Requesting Physician: Wendie Lassiter MD Attending Physician: Anibal Tobin History of Present Illness Patient is a 72 year old male with a history of CAD, DM, HTN, AF, recent MRSA bacteremia and foot OM on antibiotics who presented to [facility] from [facility] with metabolic encephalopathy/confusion as well as shaking, nausea, vomiting. Patient found to have anion gapped metabolic acidosis, significant FLORECITA on CKD with elevated lactate. per nursing, he has done dialysis that is new on this admission. Hemoglobin dropped acutely to 7.4 from 10.4 on 08/31 and dropped further to 6.9 on 09/01. He was then transfused 2 units PRBCs on 09/01 as also with dark stools which he has passed on and off. CT abdomen/pelvis 09/01 negative for retroperitoneal bleeding. Suspected that bleeding was a combination of FLORECITA and chronic disease. Per hospitalist note, Heme now more concerned about possible hemolytic anemia with +Geovani and he was started IVIG. He tells me that currently he feels improved. nursing notes improved mental status and he is alert and oriented x 3. Patient denies any current issues with nausea, vomiting, dysphagia, heartburn, abdominal pain, unintentional weight loss. Nursing tells me that he did not have any dark stool tuesday, but had two small bowel movements yesterday that were dark, and a tablespoon sized dark stool this morning. hgb today 7.8. He does not feel he ever had an EGD. he admits he had colonoscopy done years ago in [place] that was unremarkable. I do not have these records. Allergies Allergy/AdvReac Type Severity Reaction Status Date / Time cat dander Allergy Intermediate CONGESTION Verified 08/05/23 16:21 Home Medications Medication Instructions Recorded Confirmed Type Heparin Porcine Lock Flush 5 ml IV .Q SHIFT 08/05/23 08/31/23 History acetaminophen 650 mg 650 mg PO TID 08/05/23 08/31/23 History tablet,extended release amiodarone 200 mg tablet 200 mg PO DAILY 08/05/23 08/31/23 History amlodipine 2.5 mg tablet 2.5 mg PO HS 08/05/23 08/31/23 History atorvastatin 80 mg tablet (Lipitor) 80 mg PO HS 08/05/23 08/31/23 History carvedilol 3.125 mg tablet 3.125 mg PO BID 08/05/23 08/31/23 History clopidogrel 75 mg tablet 75 mg PO QAM 08/05/23 08/31/23 History ferrous sulfate 325 mg (65 mg 325 mg PO 3XWK 08/05/23 08/31/23 History iron) tablet gabapentin 300 mg capsule 300 mg PO AMHS 08/05/23 08/31/23 History insulin glargine 100 unit/mL 10 unit subcut DAILY 08/05/23 08/31/23 History subcutaneous solution (Lantus U-100 Insulin) insulin lispro 100 unit/mL 1 sliding scale dose subcut 08/05/23 08/31/23 History subcutaneous cartridge (Humalog USEASDIRECTD U-100 Insulin) morphine 15 mg tablet,extended 15 mg PO Q12 08/05/23 08/31/23 History release oxycodone 5 mg tablet 5 mg PO Q4 PRN mod or severe pain 08/05/23 08/31/23 History sertraline 25 mg tablet 75 mg PO DAILY 08/05/23 08/31/23 History sodium chloride 1,000 mg soluble 1,000 mg PO AMHS 08/05/23 08/31/23 History tablet Med Pass 120 ml PO BID 08/31/23 08/31/23 History Saccharomyces boulardii 250 mg 250 mg PO TID 08/31/23 08/31/23 History capsule (Florastor) cefepime 2 gram solution for 2 g IV DAILY 08/31/23 08/31/23 History injection doxycycline hyclate 100 mg capsule 100 mg PO Q12 08/31/23 08/31/23 History loperamide 2 mg tablet (Imodium 2 mg PO Q4H PRN Diarrhea 08/31/23 08/31/23 History A-D) omeprazole 20 mg capsule,delayed 20 mg PO AMHS 08/31/23 08/31/23 History release ondansetron 4 mg disintegrating 4 mg PO Q6H PRN Nausea And Vomiting 08/31/23 08/31/23 History tablet promethazine 25 mg/mL injection 25 mg IM Q6H PRN n/v if 08/31/23 08/31/23 History solution ondansetron ineffective protein supplement 1 ea PO BID 08/31/23 08/31/23 History sodium chloride 0.9 % (flush) 10 ml IV QS 08/31/23 08/31/23 History apixaban 5 mg tablet (Eliquis) 5 mg PO BID 09/01/23 09/01/23 History empagliflozin 25 mg tablet 25 mg PO DAILY 09/01/23 09/01/23 History (Jardiance) furosemide 20 mg tablet 20 mg PO DAILY 09/01/23 09/01/23 History metformin 1,000 mg tablet 1,000 mg PO BID 09/01/23 09/01/23 History sacubitril 24 mg-valsartan 26 mg 1 tab PO BID 09/01/23 09/01/23 History tablet (Entresto) Patient History Medical History History of atrial fibrillation CAD (coronary artery disease) s/p CABG x 2 vessel June 2021 Acute HFrEF (heart failure with reduced ejection fraction) Follows with [facility] EF 50-55% per 05/2022 ECHO Cardiomyopathy Dyslipidemia Tobacco abuse smoke-12/day DM (diabetes mellitus) Atherosclerosis of artery of left lower extremity s/p left leg angiogram procedure with REFRIGERATION SERVICE TECHNICIAN of proximal vein bypass 05/27/23 s/p left leg femoral artery to posterior tibial artery reverse saphenous vein bypass done at [facility] 02/2023 s/p left SFA and popliteal stents History of anemia History of anxiety History of alcohol abuse started 1965, quit 1999 Hx of drug abuse started 1965, quit 1999 "used every drug known to man">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, stayed in for 13 years IV drug abuse hx-quit in 1981 History of hepatitis B hx IV drug use Hepatitis C virus has had since the late >no tx, "never had any trouble with it" Heart failure with mid-range ejection fraction Follows with [facility] EF 50-55% per 05/2022 ECHO Type 2 diabetes mellitus HTN (hypertension) Surgical History History of amputation of great toe S/P CABG x 2 ~2021, went to ER w/"anxiety," found to be in congestive heart failure, had more cardiac testing, sent for f/u w/[facility] cardio surgeon, done @[facility]; f/u dr. mckeon Hx of cardiac catheterization 06/2021 [facility] History of open reduction and internal fixation (ORIF) procedure rt elbow and lt wrist>hardware intact Hx of colonoscopy History of left knee surgery 1988-tibial plateau reconstruction History of eye surgery retina History of cataract extraction rt/lt Social History Smoking Status: Former smoker Tobacco Type: Cigarettes Cigarettes Per Day: 6; Second Hand Exposure: No; Do You Dip or Chew Tobacco: No; Hx Alcohol Use: Yes Hx Substance Use: Yes Last Used Substance: Unknown Last Used Substance Other:: quit 1999-stated "used every drug known to man" Substance Use Type Other:: IV Drugs. Preferred Language: Portuguese Communication Ability: Unable Medical Laboratory Technicians Required: No Beliefs That Will Affect Care: None Current Living Situation: Other Current Living Situation Comment: [place] residing @ [facility] current occupational status: disabled How many Children do You have: 1 Feels Safe at Home: Yes Assistive Devices: Walker Review of Systems Review of Systems: All systems reviewed & are unremarkable except as noted in HPI & below Physical Exam Constitutional: WD/WN, vitals as above Respiratory: normal respiratory effort, lungs clear to auscultation Cardiovascular: RRR, no murmur, no edema Gastrointestinal (Abdomen): normal bowel sounds, soft, nontender, no hepatosplenomegaly Psychiatric: Orientation: alert and oriented x 3 Affect: euthymic affect Results & Data Vital Signs (Past 12 Hours) Vital Signs Temp Pulse Pulse Resp BP Pulse Ox O2 Del Method 09/05/23 07:30 97.9 F 85 18 164/79 H 92 Room Air 09/05/23 02:55 97.7 F 90 20 162/87 H 94 Room Air 09/05/23 01:09 82 Coding Level of Care Code 03448 INT INP/OBS CARE 2/55MIN Diagnoses Anemia D64.9 Anemia type: unspecified type (1) Anemia Anemia type: unspecified type Qualified Code(s): D64.9 - Anemia, unspecified
--- NOTE | 2023-09-05 12:44 | Nephrology Progress Note ---
Date of Service September 05, 2023 Assessment & Plan (1) Acute renal failure: Plan: Creatinine improving. Non-oliguric. Electrolytes acceptable. Volume status relatively euvolemic. HD is not required today. Cody is demonstrating kidney recovery. FLORECITA clinically consistent with ATN. Baseline creatinine ~1.5-1.6 mg/dL. Low grade proteinuria and microscopic hematuria. Peripheral smear without schistocytes. Medical history notable for chronic mild hyponatremia, hypertension, diabetes, coronary artery disease, and HFpEF. No obstruction on imaging. Cody was recently treated with cefepime and doxycycline for left foot osteomyelitis. Started on dialysis on 09/02/2023 via temporary dialysis catheter for progressive worsening of kidney function with anuria and AMS. Second dialysis on 09/03/2023. Medications are appropriately dosed for kidney function. If kidney function continues to improve tomorrow, HD catheter will be removed. (2) AMS (altered mental status): (3) Anemia: Plan: Hematology consultation appreciated. PRBC transfusion support has been provided. GI consultation for melena pending. Peripheral smear without schistocytes or blasts. (4) Thrombocytopenia: Plan: Hematology consultation appreciated. IVIG provided. 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 Admission and Anticipated Discharge Date Admission Date: August 31, 2023 Subjective No acute events overnight. Cody was resting comfortably in bed this AM. She reports dry mouth but otherwise feels well. No hematochezia. Small black bowel movement this AM. No abdominal pain. He denies shortness of breath. No fevers or chills. Breathing comfortably. Good urine output. Review of Systems Review of Systems: All systems reviewed & are unremarkable except as noted in HPI & below Physical Exam Constitutional: well developed; no acute distress Eyes: + anicteric sclerae; no corneal abnormal ity ENMT: Mouth: no oral mucosal abnormality and oral mucous membranes not dry Neck: normal visual inspection and trachea midline RIJ HD catheter Respiratory: normal respiratory effort Auscultation: lungs clear to auscultation bilaterally Cardiovascular: Rate/Rhythm: regular rate Heart Sounds: normal S1 and normal S2 Extremities: + pedal edema Musculoskeletal: Extremities: no cyanosis and no clubbing Skin: normal turgor; no lesions Neurologic: Motor/Sensory: no tremor and no asterixis Psychiatric: Orientation: alert and oriented x 3 Results & Data Vital Signs (Past 12 Hours) Vital Signs Temp Pulse Pulse Resp BP Pulse Ox O2 Del Method 09/05/23 11:53 36.7 C 92 H 18 157/82 H 93 Room Air 09/05/23 08:50 84 09/05/23 08:50 Room Air 09/05/23 07:30 36.6 C 85 18 164/79 H 92 Room Air 09/05/23 02:55 36.5 C 90 20 162/87 H 94 Room Air 09/05/23 01:09 82 Laboratory Results Laboratory Results - last 24 hr 09/01/23 09/02/23 09/04/23 10:54 07:31 16:30 WBC RBC Hgb Hct MCV MCH MCHC RDW Std Deviation RDW Coeff of Josh Plt Count Immature Gran % (Auto) Neut % (Auto) Lymph % (Auto) [place] % (Auto) Eos % (Auto) Baso % (Auto) Neut # (Auto) Lymph # (Auto) [place] # (Auto) Eos # (Auto) Baso # (Auto) Immature Gran # (Auto) RBC Morphology Haptoglobin 68 PT INR Sodium Potassium Chloride Carbon Dioxide Anion Gap BUN Creatinine Est Cr Clr Drug Dosing Est GFR ( Amer) Est GFR (Non-Af Amer) BUN/Creatinine Ratio Glucose POC Glucose 120 H Calcium Magnesium Total Bilirubin AST ALT Alkaline Phosphatase Total Protein Albumin Globulin Albumin/Globulin Ratio Crossmatch See Detail 09/04/23 09/04/23 09/05/23 17:41 20:04 05:59 WBC 3.84 L RBC 2.50 L Hgb 7.5 L Hct 21.7 L MCV 86.8 MCH 30.0 MCHC 34.6 RDW Std Deviation 50.7 H RDW Coeff of Josh 16.7 H Plt Count 18 L* Immature Gran % (Auto) Neut % (Auto) Lymph % (Auto) [place] % (Auto) Eos % (Auto) Baso % (Auto) Neut # (Auto) Lymph # (Auto) [place] # (Auto) Eos # (Auto) Baso # (Auto) Immature Gran # (Auto) RBC Morphology Haptoglobin PT INR Sodium Potassium Chloride Carbon Dioxide Anion Gap BUN Creatinine Est Cr Clr Drug Dosing Est GFR ( Amer) Est GFR (Non-Af Amer) BUN/Creatinine Ratio Glucose POC Glucose 131 H 136 H Calcium Magnesium Total Bilirubin AST ALT Alkaline Phosphatase Total Protein Albumin Globulin Albumin/Globulin Ratio Crossmatch 09/05/23 09/05/23 06:32 11:48 WBC 4.45 L RBC 2.74 L Hgb 7.8 L Hct 23.2 L MCV 84.7 MCH 28.5 MCHC 33.6 RDW Std Deviation 50.6 H RDW Coeff of Josh 16.7 H Plt Count 21 L* Immature Gran % (Auto) 0.7 Neut % (Auto) 67.0 Lymph % (Auto) 14.6 [place] % (Auto) 13.0 Eos % (Auto) 4.3 Baso % (Auto) 0.4 Neut # (Auto) 2.98 Lymph # (Auto) 0.65 L [place] # (Auto) 0.58 Eos # (Auto) 0.19 Baso # (Auto) 0.02 Immature Gran # (Auto) 0.03 RBC Morphology Unremarkable Haptoglobin PT 12.6 H INR 1.2 H Sodium 132 L Potassium 3.2 L Chloride 97 L Carbon Dioxide 29 Anion Gap 6 BUN 50 H Creatinine 3.06 H Est Cr Clr Drug Dosing 23.6 Est GFR ( Amer) 22.6 Est GFR (Non-Af Amer) 19.5 BUN/Creatinine Ratio 16.3 Glucose 115 H POC Glucose 144 H Calcium 7.0 L Magnesium 1.6 L Total Bilirubin 0.6 AST 20 ALT 13 Alkaline Phosphatase 95 Total Protein 7.3 Albumin 2.2 L Globulin 5.1 H Albumin/Globulin Ratio 0.4 L Crossmatch PG Care Time/CCT Total # of Minutes Spent Total Time Spent with Patient: Total time spent is greater than 50% in coordination of care (as documented) at patient's floor/unit and/or counseling patient: Coding Level of Care Code 95242 SUB INP/OBS CARE 3/50MIN Diagnoses Acute renal failure N17.9 AMS (altered mental status) R41.82 Anemia D64.9 Anemia type: unspecified type Thrombocytopenia D69.6 (3) Anemia Anemia type: unspecified type Qualified Code(s): D64.9 - Anemia, unspecified
[2023-09-05 18:42] LABS: Hematocrit (blood only) 24.2 % (42.0-52.0); Hemoglobin 8.1 g/dl (14.0-18.0)
[2023-09-05] MEDS: POTASSIUM CHLORIDE / WTR 10 MEQ/100 ML PLCT IV SCH (18:45)
[2023-09-05] MEDS: oxyCODONE HCL IR 5 MG TAB (IMMEDIATE RELEASE) PO STA (19:40)
[2023-09-05] MEDS: ACETAMINOPHEN 325 MG TAB PO SCH (20:53)
--- NOTE | 2023-09-05 22:03 | Hospitalist Progress Note ---
Date of Service September 05, 2023 Assessment & Plan (1) Acute renal failure: Plan: 72yo male with history of CAD, DM, HTN, AF, recent MRSA bacteremia and foot OM on antibiotics presenting from [facility] with metabolic encephalopathy/confusion as well as shaking, N/V. Patient found to have anion gapped metabolic acidosis, significant FLORECITA on CKD with elevated lactate pH on VBG=7.08. HCO3=14, AG=12. 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 No EKG changes present. He was treated with Insulin/D50 as well as calcium gluconate. IVF given as well. K+ now normal Renal ultrasound negative for obstruction CT abdomen/pelvis ordered on 08/31-again, no obstructive uropathy Further review of the records shows that he was resumed on Entresto as well as taking Jardiance, lisinopril, Lasix, and metformin after discharge last admission His creatinine started rising on 08/22 and then on next check on 08/29 was significantly elevated prompting this admission He also had some N/V and poor p.o. intake the 2 days leading up to admission possibly from opioid use Most likely prerenal etiology causing ATN in the setting of taking multiple offending drugs as above Not likely AIN from antibiotics as UA not consistent with this CK normal, no rhabdo. 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 Acidosis is improving on a bicarbonate drip. 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 operator trending downward to 3.08 on 09/04 mentation continues to be improved on 09/05 Appreciate Nephrology consult Continue to monitor urine output, Huizar catheter in place Follow BMP Continue to HOLD home amlodipine while BPs soft to improve hemodynamics Holding home Entresto, Jardiance, metformin, and Lasix May be able to remove temporary dialysis catheter on Tuesday and not require further dialysis if continues to improve (2) Acute metabolic encephalopathy: Plan: Patient was completely nonverbal, significantly lethargic, not even able to respond to any commands for 3 to 4 days upon admission with significant myoclonic jerks in all [address] head negative Likely secondary to taking long acting morphine and gabapentin as well as cefepime in setting of FLORECITA--> toxicities of these medications can cause confusion, tremors Also could be some component of uremia Ammonia level normal, not retaining CO2 on ABG Renal failure is likely contributing somewhat as well Now s/p dialysis to dialyze out some of these toxic metabolites, on 09/03 mentation is significantly improved-he is conversational, no further tremors, is able to make his needs known. Still napping frequently Discontinued morphine, cefepime, and gabapentin checked B1 level and started empiric thiamine Advance diet as tolerated today Patient refusing upper endoscopy. (3) Thrombocytopenia: Plan: Platelets started dropping on outpatient labs on 08/22 and now are severely low at 19, with coffee-ground emesis and melena x 1 development on 09/01 CT abdomen/pelvis without splenomegaly He does have a liver mass which is noted from previous and will need follow-up when more stable Appreciate hematology consultation-given anemia and thrombocytopenia, workup o rdered for TTP/HUS and was negative for evidence of microangiopathic hemolytic anemia. Workup for DIC negative Most likely secondary to linezolid which was just discontinued on 08/28 and is well-known to cause thrombocytopenias Potentially PPI, cefepime could cause thrombocytopenia's as well-cefepime has also been discontinued Given GI bleeding, transfused platelets on 09/01 (3 units) and plts were up to 33, now back down again to 17 but no further bleeding noted Follow-up HIT antibodies but 4 T score is 3-he is getting heparin flushes only through his PICC line Continue holding home Plavix and Eliquis Follow CBC Giving IVIG which could help drug-induced thrombocytopenia as per hematology Elevated INR-could be Vit K deficiency vs low grade DIC? Gave Vit K 10mg and FFP on 09/01, INR now down to 1.3, will follow levels. Check fibrinogen if INR rises again and consider cryoprecipitate as per Heme (4) Anemia: Plan: Hemoglobin dropped acutely to 7.4 from 10.4 on 08/31 and dropped further to 6.9 on 09/01--> transfused 2 units PRBCs on 09/01 as also with melena Hemolysis labs remain negative (TBili,LDH) except UZAIR/Geovani is positive CT abdomen/pelvis 09/01 negative for retroperitoneal bleeding B12 folate and iron studies all ordered-folate is low-replace with 1 mg folic acid daily Likely also a component of anemia of chronic disease and renal failure Heme now more concerned about possible hemolytic anemia with +Geovani and started IVIG-received 2 days worth of dosing Hemoglobin trended back downward again on 09/03-6.7 with no further evidence of GI bleeding Transfuse 1 more unit of PRBCs on 09/03 Patient decided on getting PPI BID instead of scope. (5) Chronic pain: Plan: Patient complaining of severe pain in his feet from PAD and lower back now that he is awake and the morphine has been dialyzed out of his system Start low-dose oxycodone 5 mg p.o. every 8 hours as needed and would not escalate beyond this for now Can also give Tylenol as needed (6) GIB (gastrointestinal bleeding): Plan: As noted above Continue Protonix 40 mg IV twice daily Transfusing blood as needed Most likely gastritis or peptic ulcer disease Was to unstable for endoscopy at this time, but now that mentation improving and renal failure improving, will consult GI for possible EGD on Tuesday given hemoglobin continues to drop and there is no evidence of hemolysis or other ex planation (7) Hypoglycemia: Plan: Patient with hypoglycemia on arrival likely from poor renal clearance of insulin in setting of FLORECITA-now resolved on D5 and fluids which have since been stopped on dialysis Continue to hold Lantus and give Novolog SSI only as needed (8) Acidosis: Plan: secondary to lactic acidosis and renal failure-now much improved after being on bicarb drip and receiving dialysis (9) MRSA bacteremia: Plan: Patient with OM of left foot and recent hospitalization for MRSA bacteremia and PNA. Had some gram negative rods on wound gram stain so empirically on Cefepime Continue Doxycycline 100mg po BID until 09/19/2023--> changed to IV given vomiting and inability to take po from encephalopathy Changed Cefepime to Cipro due to possible cefepime toxicity and cause of enc ephalopathy-renally dosed until 09/19/23 Continue wound care daily dressing changes and packing of the wound on the foot, consult Wound Care nurse No fevers or leukocytosis here to suggest recurrent infection f/u with Vascular was supposed to occur next week-will let vascular know that he is in the hospital if they want to see him in hospital on Tuesday Plan Hypomagnesemia-replace as needed to keep above 2.0, follow mag level in AM Hypocalcemia-may have been also contributing to tremors-replaced and now resolved after corrected for hypoalbuminemia CAD - chronic. stable. no CP or evidence of cardiac ischemia -Holding Plavix for bleeding and thrombocytopenia, can give carvedilol, and atorvastatin when he is able to take p.o. HTN - Chronic. -Continue Carvedilol once able to take po but hold Amlodipine Depression/Anxiety - chronic -Continue Sertraline 75mg po daily when he is able to take p.o. Atrial Fibrillation - paroxysmal, in NSR here -Continue Amiodarone 200mg po daily when able to take p.o. -He typically is on Eliquis but this is currently on hold due to thrombocytopenia and bleeding -continue tele monitoring Neuropathy-HOLD gabapentin due to FLORECITA and encephalopathy DVT proph-hold any anticoagulation for now due to severe thrombocytopenia and bleeding Dispo-continued stay, prognosis improving. Discussed all care with point of contact, Kadi. Admission and Anticipated Discharge Date Admission Date: August 31, 2023 Subjective 72 yo male reports no new symptoms. Patient states his pain is not controlled. Review of Systems Review of Systems: All systems reviewed & are unremarkable except as noted in HPI & below Physical Exam Constitutional: WD/WN, vitals as above no acute distress Respiratory: normal respiratory effort; no cough Auscultation: lungs clear to auscultation bilaterally Cardiovascular: RRR, no murmur, no edema Rate/Rhythm: regular rate and regular rhythm Heart Sounds: no murmur Extremities: + edema (1+ pitting edema all four ext) Gastrointestinal (Abdomen): normal bowel sounds, soft, nontender, no hepatosplenomegaly Neurologic: moves all extremities and awake; no focal motor deficits Psychiatric: Orientation: alert, oriented to person, oriented to place and cooperative Results & Data Results & Data Vital Signs (Past 12 Hours) Vital Signs Temp Pulse Pulse Resp BP Pulse Ox O2 Del Method 09/05/23 19:28 36.8 C 97 H 18 165/87 H 94 Room Air 09/05/23 16:00 94 H 09/05/23 14:37 36.6 C 87 19 180/94 H 93 Room Air 09/05/23 11:53 36.7 C 92 H 18 157/82 H 93 Room Air PG Care Time/CCT Total # of Minutes Spent Total Time Spent with Patient: Total time spent is greater than 50% in coordination of care (as documented) at patient's floor/unit and/or counseling patient: Coding Level of Care Code 98204 SUB INP/OBS CARE 2/35MIN Diagnoses Acute renal failure N17.9 Acute metabolic encephalopathy G93.41 Thrombocytopenia D69.6 Anemia D64.9 Anemia type: unspecified type Chronic pain G89.29 GIB (gastrointestinal bleeding) K92.2 GI bleed type/associated pathology: unspecified gastrointestinal hemorrhage type Hypoglycemia E16.2 Acidosis E87.20 MRSA bacteremia R78.81; B95.62 (4) Anemia Anemia type: unspecified type Qualified Code(s): D64.9 - Anemia, unspecified (6) GIB (gastrointestinal bleeding) GI bleed type/associated pathology: unspecified gastrointestinal hemorrhage type Qualified Code(s): K92.2 - Gastrointestinal hemorrhage, unspecified
--- NOTE | 2023-09-06 07:37 | Progress Note ---
Date of Service September 06, 2023 Assessment & Plan (1) Thrombocytopenia: (2) Anemia: Anemia type: unspecified type Qualified Code(s): D64.9 - Anemia, unspecified Plan -Since counts are improving, no additional treatment with steroids or IVIG needed at this time. Continue current management Admission and Anticipated Discharge Date Admission Date: August 31, 2023 Subjective s/p 2 doses of IVIG for drug induced thrombocytopenia and possible mild UZAIR positive hemolytic anemia. Platelet count improving, H/H stable . Renal function also improving off HD since 09/03/23 Results & Data Vital Signs (Past 12 Hours) Vital Signs Temp Pulse Pulse Resp BP Pulse Ox O2 Del Method 09/06/23 04:30 36.7 C 68 17 164/78 H 94 Room Air 09/05/23 22:46 36.5 C 90 18 162/92 H 95 Room Air 09/05/23 21:57 94 H 09/05/23 20:15 Room Air
[2023-09-06 08:12] LABS: Basophils # (auto) 0.02 K/uL (0.00-0.20); Basophils % (auto) 0.3 %; Eosinophils # (auto) 0.16 K/uL (0.00-0.50); Eosinophils % (auto) 2.7 %; Hematocrit (blood only) 24.6 % (42.0-52.0); Hemoglobin 8.3 g/dl (14.0-18.0); Immature Granulocytes # (auto) 0.04 K/uL (0.01-0.20); Immature Granulocytes % (auto) 0.7 %; Lymphocytes # (auto) 0.87 K/uL (1.20-3.40); Lymphocytes % (auto) 14.8 %; Mean Corpuscular Hemoglobin 28.3 pg (25.0-34.0); Mean Corpuscular Hgb Conc 33.7 g/dL (32.0-36.0); Mean Platelet Volume 12.3 fL (9.4-12.4); Monocytes # (auto) 0.96 K/uL (0.11-0.59); Monocytes % (auto) 16.3 %; Neutrophils # (auto) 3.83 K/uL (1.40-6.50); Neutrophils % (auto) 65.2 %; Platelet Count 41 K/uL (130-400); RDW Coefficient of Variation 16.8 % (11.5-14.5); RDW Standard Deviation 51.6 fL (36.4-46.3); Red Blood Count 2.93 M/uL (4.70-6.10); White Blood Count 5.88 K/ul (4.8-10.8)
[2023-09-06] MEDS: oxyCODONE HCL IR 5 MG TAB (IMMEDIATE RELEASE) PO PRN (09:10)
[2023-09-06 09:24] LABS: Albumin Globulin Ratio 0.5 (0.9-2); Albumin Level 2.5 gm/dl (3.4-5.0); BUN Creatinine Ratio 19.9 (10-20); Bilirubin,Total 0.7 mg/dl (0.2-1.0); Calcium 7.2 mg/dl (8.6-10.3); Creatinine Clr Calc Pharmacy 24.8 ml/min; Est GFR (Non-African American) 20.7 ml/min; Globulin 4.8 gm/dl (2.5-4.0); Magnesium 1.4 mg/dl (1.7-2.4); Potassium 3.1 mmol/L (3.5-5.1); Total Protein 7.3 gm/dl (6.0-8.3)
--- NOTE | 2023-09-06 10:18 | Nephrology Progress Note ---
Date of Service September 06, 2023 Assessment & Plan (1) Acute renal failure: Plan: Creatinine improving. Non-oliguric. Electrolytes acceptable. Potassium replacement is being provided IV. Volume status relatively euvolemic. HD is not required today. Cody is demonstrating kidney recovery. FLORECITA clinically consistent with ATN. HD catheter will be removed. I have placed a request to the IV team for dialysis catheter removal. Baseline creatinine ~1.5-1.6 mg/dL. Low grade proteinuria and microscopic hematuria. Peripheral smear without schistocytes. Medical history notable for chronic mild hyponatremia, hypertension, diabetes, coronary artery disease, and HFpEF. No obstruction on imaging. Cody was recently treated with cefepime and doxycycline for left foot osteomyelitis. Started on dialysis on 09/02/2023 via temporary dialysis catheter for progressive worsening of kidney function with anuria and AMS. Second dialysis on 09/03/2023. Medications are appropriately dosed for kidney function. (2) Anemia: Plan: Hematology consultation appreciated. PRBC transfusion support has been provided. GI consultation for melena appreciated. No plan for EGD at this time. Peripheral smear without schistocytes or blasts. (3) Thrombocytopenia: Plan: Hematology consultation appreciated. IVIG provided. 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 Admission and Anticipated Discharge Date Admission Date: August 31, 2023 Subjective No acute events overnight. Cody was resting comfortably in bed this morning. He continues to have small black stool. No abdominal pain. He is breathing comfortably. Tolerating liquid diet. No fluid retention or edema. Urine output is good. Review of Systems Review of Systems: All systems reviewed & are unremarkable except as noted in HPI & below Physical Exam Constitutional: well developed; no acute distress Eyes: + anicteric sclerae; no corneal abnormal ity ENMT: Mouth: no oral mucosal abnormality and oral mucous membranes not dry Neck: normal visual inspection and trachea midline Respiratory: normal respiratory effort Auscultation: lungs clear to auscultation bilaterally Cardiovascular: Rate/Rhythm: regular rate Heart Sounds: normal S1 and normal S2 Extremities: no edema Musculoskeletal: Extremities: no cyanosis and no clubbing Skin: normal turgor; no lesions Neurologic: Motor/Sensory: no tremor and no asterixis Psychiatric: Orientation: alert and oriented x 3 Results & Data Vital Signs (Past 12 Hours) Vital Signs Temp Pulse Pulse Resp BP Pulse Ox O2 Del Method 09/06/23 08:30 93 H 09/06/23 08:30 Room Air 09/06/23 07:40 36.4 C L 94 H 18 157/83 H 95 Room Air 09/06/23 04:30 36.7 C 68 17 164/78 H 94 Room Air 09/05/23 22:46 36.5 C 90 18 162/92 H 95 Room Air Laboratory Results Laboratory Results - last 24 hr 09/05/23 09/05/23 09/05/23 11:48 16:17 18:15 WBC RBC Hgb 8.1 L Hct 24.2 L MCV MCH MCHC RDW Std Deviation RDW Coeff of Josh Plt Count MPV Immature Gran % (Auto) Neut % (Auto) Lymph % (Auto) [place] % (Auto) Eos % (Auto) Baso % (Auto) Neut # (Auto) Lymph # (Auto) [place] # (Auto) Eos # (Auto) Baso # (Auto) Immature Gran # (Auto) Sodium Potassium Chloride Carbon Dioxide Anion Gap BUN Creatinine Est Cr Clr Drug Dosing Est GFR ( Amer) Est GFR (Non-Af Amer) BUN/Creatinine Ratio Glucose POC Glucose 144 H 135 H Calcium Magnesium Total Bilirubin AST ALT Alkaline Phosphatase Total Protein Albumin Globulin Albumin/Globulin Ratio 09/05/23 09/06/23 09/06/23 20:08 06:32 07:35 WBC 5.88 RBC 2.93 L Hgb 8.3 L Hct 24.6 L MCV 84.0 MCH 28.3 MCHC 33.7 RDW Std Deviation 51.6 H RDW Coeff of Josh 16.8 H Plt Count 41 L D MPV 12.3 Immature Gran % (Auto) 0.7 Neut % (Auto) 65.2 Lymph % (Auto) 14.8 [place] % (Auto) 16.3 Eos % (Auto) 2.7 Baso % (Auto) 0.3 Neut # (Auto) 3.83 Lymph # (Auto) 0.87 L [place] # (Auto) 0.96 H Eos # (Auto) 0.16 Baso # (Auto) 0.02 Immature Gran # (Auto) 0.04 Sodium 132 L Potassium 3.1 L Chloride 98 Carbon Dioxide 26 Anion Gap 8 BUN 58 H Creatinine 2.91 H Est Cr Clr Drug Dosing 24.8 Est GFR ( Amer) 24.0 Est GFR (Non-Af Amer) 20.7 BUN/Creatinine Ratio 19.9 Glucose 127 H POC Glucose 131 H 150 H Calcium 7.2 L Magnesium 1.4 L Total Bilirubin 0.7 AST 16 ALT 12 Alkaline Phosphatase 101 Total Protein 7.3 Albumin 2.5 L Globulin 4.8 H Albumin/Globulin Ratio 0.5 L PG Care Time/CCT Total # of Minutes Spent Total Time Spent with Patient: Total time spent is greater than 50% in coordination of care (as documented) at patient's floor/unit and/or counseling patient: Coding Level of Care Code 73309 SUB INP/OBS CARE 3/50MIN Diagnoses Acute renal failure N17.9 Anemia D64.9 Anemia type: unspecified type Thrombocytopenia D69.6 (2) Anemia Anemia type: unspecified type Qualified Code(s): D64.9 - Anemia, unspecified
[2023-09-06] MEDS: POTASSIUM CHLORIDE / WTR 10 MEQ/100 ML PLCT IV SCH (10:47)
--- NOTE | 2023-09-06 11:07 | Gastroenterology Progress Note ---
<Statement entered by Anabel Rankin MD - 09/06/23 15:36> I have reviewed the History & Physical, assessment and plan. I agree with the documentation provided by ASTRID Estrada with no additional comments. Date of Service September 06, 2023 Assessment & Plan (1) Anemia: Plan: Anemia is improving. currently hgb 8.3. He has no other GI concerns at this time. - continue with protonix 40mg IV BID. - continue to follow hgb/hct and transfuse as needed. - patient has declined further endoscopic evaluation. Dr. Rankin also felt risks outweigh benefit at this time given renal failure and thrombocytopenia. Admission and Anticipated Discharge Date Admission Date: August 31, 2023 Subjective Patient had one dark stool this morning per nursing that was a little more than a smear. hgb had improved today to 8.3. he denies any nausea, vomiting, heartburn, abdominal pain. he is requesting to advance his diet. Review of Systems Review of Systems: All systems reviewed & are unremarkable except as noted in HPI & below Physical Exam Physical Exam: Patient declined further Physical exam. Constitutional: WD/WN, vitals as above Respiratory: normal respiratory effort Psychiatric: Orientation: alert and oriented x 3 Results & Data Results & Data Vital Signs (Past 12 Hours) Vital Signs Temp Pulse Pulse Resp BP Pulse Ox O2 Del Method 09/06/23 10:50 83 18 146/85 H 09/06/23 10:50 83 18 146/85 H Room Air 09/06/23 10:35 82 18 154/87 H 09/06/23 10:35 82 18 154/87 H Room Air 09/06/23 10:30 86 18 148/86 H Room Air 09/06/23 10:30 86 20 148/86 H 09/06/23 08:30 93 H 09/06/23 08:30 Room Air 09/06/23 07:40 97.5 F L 94 H 18 157/83 H 95 Room Air 09/06/23 04:30 98.1 F 68 17 164/78 H 94 Room Air Coding Level of Care Code 66630 SUB INP/OBS CARE 03/24MIN Diagnoses Anemia D64.9 Anemia type: unspecified type (1) Anemia Anemia type: unspecified type Qualified Code(s): D64.9 - Anemia, unspecified
--- NOTE | 2023-09-06 14:13 | Communication Note ---
Date of Service: September 06, 2023 Pt's LLE great toe amputation site eval this AM, packing removed. Pulses palpable. Wound significantly improved from OV 2 weeks ago. Edema resolved, wound granulating well, significantly smaller in size and depth. No erythema, odor, drainage, or necrosis noted. Recommend continue with plain packing and dry dressing QD. Will reeval in office in 2 weeks.
--- NOTE | 2023-09-06 22:40 | Hospitalist Progress Note ---
Date of Service September 06, 2023 Assessment & Plan (1) Acute renal failure: Plan: 72yo male with history of CAD, DM, HTN, AF, recent MRSA bacteremia and foot OM on antibiotics presenting from [facility] with metabolic encephalopathy/confusion as well as shaking, N/V. Patient found to have anion gapped metabolic acidosis, significant FLORECITA on CKD with elevated lactate pH on VBG=7.08. HCO3=14, AG=12. 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 No EKG changes present. He was treated with Insulin/D50 as well as calcium gluconate. IVF given as well. K+ now normal Renal ultrasound negative for obstruction CT abdomen/pelvis ordered on 08/31-again, no obstructive uropathy Further review of the records shows that he was resumed on Entresto as well as taking Jardiance, lisinopril, Lasix, and metformin after discharge last admission His creatinine started rising on 08/22 and then on next check on 08/29 was significantly elevated prompting this admission He also had some N/V and poor p.o. intake the 2 days leading up to admission possibly from opioid use Most likely prerenal etiology causing ATN in the setting of taking multiple offending drugs as above Not likely AIN from antibiotics as UA not consistent with this CK normal, no rhabdo. 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 Acidosis is improving on a bicarbonate drip. 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 trending downward to 3.08 on 09/04 mentation continues to be improved on 09/05 Appreciate Nephrology consult Continue to monitor urine output, Huizar catheter in place Follow BMP Continue to HOLD home amlodipine while BPs soft to improve hemodynamics Holding home Entresto, Jardiance, metformin, and Lasix removed HD cathter on 09/05 (2) Acute metabolic encephalopathy: Plan: Patient was completely nonverbal, significantly lethargic, not even able to respond to any commands for 3 to 4 days upon admission with significant myoclonic jerks in all [address] head negative Likely secondary to taking long acting morphine and gabapentin as well as cefepime in setting of FLORECITA--> toxicities of these medications can cause confusion, tremors Also could be some component of uremia Ammonia level normal, not retaining CO2 on ABG Renal failure is likely contributing somewhat as well Now s/p dialysis to dialyze out some of these toxic metabolites, on 09/03 mentation is significantly improved-he is conversational, no further tremors, is able to make his needs known. Still napping frequently Discontinued morphine, cefepime, and gabapentin checked B1 level and started empiric thiamine Advance diet as tolerated today Patient refusing upper endoscopy. Resolved. (3) Thrombocytopenia: Plan: Platelets started dropping on outpatient labs on 08/22 and now are severely low at 19, with coffee-ground emesis and melena x 1 development on 09/01 CT abdomen/pelvis without splenomegaly He does have a liver mass which is noted from previous and will need follow-up when more stable Appreciate hematology consultation-given anemia and thrombocytopenia, workup ordered for TTP/HUS and was negative for evidence of microangiopathic hemolytic anemia. Workup for DIC negative Most likely secondary to linezolid which was just discontinued on 08/28 and is well-known to cause thrombocytopenias Potentially PPI, cefepime could cause thrombocytopenia's as well-cefepime has also been discontinued Given GI bleeding, transfused platelets on 09/01 (3 units) and plts were up to 33, now back down again to 17 but no further bleeding noted Follow-up HIT antibodies but 4 T score is 3-he is getting heparin flushes only through his PICC line Continue holding home Plavix and Eliquis Follow CBC Giving IVIG which could help drug-induced thrombocytopenia as per hematology Elevated INR-could be Vit K deficiency vs low grade DIC? Gave Vit K 10mg and FFP on 09/01, INR now down to 1.3, will follow levels. Check fibrinogen if INR rises again and consider cryoprecipitate as per Heme (4) Anemia: Plan: Hemoglobin dropped acutely to 7.4 from 10.4 on 08/31 and dropped further to 6.9 on 09/01--> transfused 2 units PRBCs on 09/01 as also with melena Hemolysis labs remain negative (TBili,LDH) except UZAIR/Geovani is positive CT abdomen/pelvis 09/01 negative for retroperitoneal bleeding B12 folate and iron studies all ordered-folate is low-replace with 1 mg folic acid daily Likely also a component of anemia of chronic disease and renal failure Heme now more concerned about possible hemolytic anemia with +Geovani and started IVIG-received 2 days worth of dosing Hemoglobin trended back downward again on 09/03-.7 with no further evidence of GI bleeding Transfuse 1 more unit of PRBCs on 09/03 Patient decided on getting PPI BID instead of scope. (5) Chronic pain: Plan: Patient complaining of severe pain in his feet from PAD and lower back now that he is awake and the morphine has been dialyzed out of his system Start low-dose oxycodone 5 mg p.o. every 8 hours as needed and would not escalate beyond this for now Can also give Tylenol as needed (6) GIB (gastrointestinal bleeding): Plan: As noted above Continue Protonix 40 mg IV twice daily Transfusing blood as needed Most likely gastritis or peptic ulcer disease Was to unstable for endoscopy at this time, but now that mentation improving and renal failure improving, will consult GI for possible EGD on Tuesday given hemoglobin continues to drop and there is no evidence of hemolysis or other explanation (7) Hypoglycemia: Plan: Patient with hypoglycemia on arrival likely from poor renal clearance of insulin in setting of FLORECITA-now resolved on D5 and fluids which have since been stopped on dialysis Continue to hold Lantus and give Novolog SSI only as needed (8) Acidosis: Plan: secondary to lactic acidosis and renal failure-now much improved after being on bicarb drip and receiving dialysis (9) MRSA bacteremia: Plan: Patient with OM of left foot and recent hospitalization for MRSA bacteremia and PNA. Had some gram negative rods on wound gram stain so empirically on Cefepime Continue Doxycycline 100mg po BID until 09/19/2023--> changed to IV given vomiting and inability to take po from encephalopathy Changed Cefepime to Cipro due to possible cefepime toxicity and cause of encephalopathy-renally dosed until 09/19/23 Continue wound care daily dressing changes and packing of the wound on the foot, consult Wound Care nurse No fevers or leukocytosis here to suggest recurrent infection f/u with Vascular was supposed to occur next week-will let vascular know that he is in the hospital if they want to see him in hospital on Tuesday Plan Hypomagnesemia-replace as needed to keep above 2.0, follow mag level in AM Hypocalcemia-may have been also contributing to tremors-replaced and now resolved after corrected for hypoalbuminemia CAD - chronic. stable. no CP or evidence of cardiac ischemia -Holding Plavix for bleeding and thrombocytopenia, can give carvedilol, and atorvastatin when he is able to take p.o. HTN - Chronic. -Continue Carvedilol once able to take po but hold Amlodipine Depression/Anxiety - chronic -Continue Sertraline 75mg po daily when he is able to take p.o. Atrial Fibrillation - paroxysmal, in NSR here -Continue Amiodarone 200mg po daily when able to take p.o. -He typically is on Eliquis but this is currently on hold due to thrombocytopenia and bleeding -continue tele monitoring Neuropathy-HOLD gabapentin due to FLORECITA and encephalopathy DVT proph-hold any anticoagulation for now due to severe thrombocytopenia and bleeding Dispo-continued stay, prognosis improving. Discussed all care with point of contact, Kadi. Admission and Anticipated Discharge Date Admission Date: August 31, 2023 Subjective 72 yo male reports pain is better controlled. Review of Systems Review of Systems: All systems reviewed & are unremarkable except as noted in HPI & below Physical Exam Constitutional: WD/WN, vitals as above no acute distress Respiratory: normal respiratory effort; no cough Auscultation: lungs clear to auscultation bilaterally Cardiovascular: RRR, no murmur, no edema Rate/Rhythm: regular rate and regular rhythm Heart Sounds: no murmur Extremities: + edema (1+ pitting edema all four ext) Gastrointestinal (Abdomen): normal bowel sounds, soft, nontender, no hepatosplenomegaly Neurologic: moves all extremities and awake; no focal motor deficits Psychiatric: Orientation: alert, oriented to person, oriented to place and cooperative Results & Data Results & Data Vital Signs (Past 12 Hours) Vital Signs Temp Pulse Resp BP Pulse Ox O2 Del Method 09/06/23 22:28 36.9 C 82 18 155/89 H 94 Room Air 09/06/23 19:49 36.4 C L 94 H 18 157/93 H 93 Room Air 09/06/23 19:23 Room Air 09/06/23 14:59 36.4 C L 83 18 162/94 H 93 Room Air 09/06/23 11:51 88 159/87 H 09/06/23 11:05 84 163/90 H 09/06/23 10:50 83 18 146/85 H 09/06/23 10:50 83 18 146/85 H Room Air PG Care Time/CCT Total # of Minutes Spent Total Time Spent with Patient: Total time spent is greater than 50% in coordination of care (as documented) at patient's floor/unit and/or counseling patient: Coding Level of Care Code 84073 SUB INP/OBS CARE 2/35MIN Diagnoses Acute renal failure N17.9 Acute metabolic encephalopathy G93.41 Thrombocytopenia D69.6 Anemia D64.9 Anemia type: unspecified type Chronic pain G89.29 GIB (gastrointestinal bleeding) K92.2 GI bleed type/associated pathology: unspecified gastrointestinal hemorrhage type Hypoglycemia E16.2 Acidosis E87.20 MRSA bacteremia R78.81; B95.62 (4) Anemia Anemia type: unspecified type Qualified Code(s): D64.9 - Anemia, unspecified (6) GIB (gastrointestinal bleeding) GI bleed type/associated pathology: unspecified gastrointestinal hemorrhage type Qualified Code(s): K92.2 - Gastrointestinal hemorrhage, unspecified
[2023-09-07 07:44] LABS: Hematocrit (blood only) 24.7 % (42.0-52.0); Hemoglobin 8.2 g/dl (14.0-18.0); Mean Corpuscular Hemoglobin 27.7 pg (25.0-34.0); Mean Corpuscular Hgb Conc 33.2 g/dL (32.0-36.0); Mean Corpuscular Volume 83.4 fL (80.0-100.0); Mean Platelet Volume 12.1 fL (9.4-12.4); Platelet Count 69 K/uL (130-400); RDW Coefficient of Variation 16.8 % (11.5-14.5); RDW Standard Deviation 51.3 fL (36.4-46.3); Red Blood Count 2.96 M/uL (4.70-6.10); White Blood Count 7.01 K/ul (4.8-10.8)
[2023-09-07 07:57] LABS: Albumin Level 2.5 gm/dl (3.4-5.0); BUN Creatinine Ratio 22.7 (10-20); Calcium 7.3 mg/dl (8.6-10.3); Creatinine Clr Calc Pharmacy 26.4 ml/min; Est GFR (African American) 25.9 ml/min; Est GFR (Non-African American) 22.4 ml/min; Magnesium 1.3 mg/dl (1.7-2.4); Phosphorus 2.7 mg/dl (2.5-4.9); Potassium 3.4 mmol/L (3.5-5.1)
--- NOTE | 2023-09-07 09:30 | Nephrology Progress Note ---
Date of Service September 07, 2023 Assessment & Plan (1) Acute renal failure: Plan: Creatinine improving. Non-oliguric. Electrolytes acceptable. Potassium and magnesium replacement are being provided. Volume status remains euvolemic. Cody continues demonstrating kidney recovery. FLORECITA clinically consistent with ATN. HD catheter removed yesterday. Baseline creatinine ~1.5-1.6 mg/dL. Low grade proteinuria and microscopic hematuria. Peripheral smear without schistocytes. Medical history notable for chronic mild hyponatremia, hypertension, diabetes, coronary artery disease, and HFpEF. Started on dialysis on 09/02/2023 via temporary dialysis catheter for progressive worsening of kidney function with anuria and AMS. Second dialysis on 09/03/2023. No HD required since September 02. Medications are appropriately dosed for kidney function. (2) Anemia: Plan: Hematology consultation appreciated. PRBC transfusion support has been provided. GI consultation for melena appreciated. No plan for EGD at this time. Peripheral smear without schistocytes or blasts. Hgb stable. Cody denies any additional melena this AM. No hematochezia. (3) Thrombocytopenia: Plan: Hematology consultation appreciated. 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 Admission and Anticipated Discharge Date Admission Date: August 31, 2023 Subjective No acute events overnight. Cody feels well this AM. He denies melena or hemat ochezia. He denies abdominal pain. No fevers or chills. No fluid retention or edema. Review of Systems Review of Systems: All systems reviewed & are unremarkable except as noted in HPI & below Physical Exam Constitutional: well developed; no acute distress Eyes: + anicteric sclerae; no corneal abnormal ity ENMT: Mouth: no oral mucosal abnormality and oral mucous membranes not dry Neck: normal visual inspection and trachea midline Respiratory: normal respiratory effort Auscultation: lungs clear to auscultation bilaterally Cardiovascular: Rate/Rhythm: regular rate Heart Sounds: normal S1 and normal S2 Extremities: no edema Musculoskeletal: Extremities: no cyanosis and no clubbing Skin: normal turgor; no lesions Neurologic: Motor/Sensory: no tremor and no asterixis Psychiatric: Orientation: alert and oriented x 3 Results & Data Vital Signs (Past 12 Hours) Vital Signs Temp Pulse Pulse Resp BP Pulse Ox O2 Del Method 09/07/23 07:10 36.3 C L 98 H 18 122/79 95 Room Air 09/07/23 03:24 36.5 C 88 18 169/88 H 92 Room Air 09/06/23 22:31 82 09/06/23 22:28 36.9 C 82 18 155/89 H 94 Room Air Laboratory Results Laboratory Results - last 24 hr 09/06/23 09/06/23 09/06/23 11:08 16:08 19:45 WBC RBC Hgb Hct MCV MCH MCHC RDW Std Deviation RDW Coeff of Josh Plt Count MPV Sodium Potassium Chloride Carbon Dioxide Anion Gap BUN Creatinine Est Cr Clr Drug Dosing Est GFR ( Amer) Est GFR (Non-Af Amer) BUN/Creatinine Ratio Glucose POC Glucose 130 H 149 H 129 H Calcium Phosphorus Magnesium Albumin 09/07/23 09/07/23 06:29 07:29 WBC 7.01 RBC 2.96 L Hgb 8.2 L Hct 24.7 L MCV 83.4 MCH 27.7 MCHC 33.2 RDW Std Deviation 51.3 H RDW Coeff of Josh 16.8 H Plt Count 69 L D MPV 12.1 Sodium 133 L Potassium 3.4 L Chloride 99 Carbon Dioxide 25 Anion Gap 9 BUN 62 H Creatinine 2.73 H Est Cr Clr Drug Dosing 26.4 Est GFR ( Amer) 25.9 Est GFR (Non-Af Amer) 22.4 BUN/Creatinine Ratio 22.7 H Glucose 126 H POC Glucose 142 H Calcium 7.3 L Phosphorus 2.7 Magnesium 1.3 L Albumin 2.5 L PG Care Time/CCT Total # of Minutes Spent Total Time Spent with Patient: Total time spent is greater than 50% in coordination of care (as documented) at patient's floor/unit and/or counseling patient: Coding Level of Care Code 24987 SUB INP/OBS CARE 3/50MIN Diagnoses Acute renal failure N17.9 Anemia D64.9 Anemia type: unspecified type Thrombocytopenia D69.6 (2) Anemia Anemia type: unspecified type Qualified Code(s): D64.9 - Anemia, unspecified
[2023-09-07] MEDS: POTASSIUM CHLORIDE CRTAB 20 MEQ TABCR PO STA (09:43)
[2023-09-07] MEDS: MAGNESIUM SULFATE / D5W 1 GM/100 ML BAG IV SCH (09:43)
--- NOTE | 2023-09-07 14:44 | Communication Note ---
<Statement entered by Anabel Rankin MD - 09/07/23 15:58> I have reviewed the documentation in the interval since the performance of the History & Physical I have noted the following changes of clinical significance: no changes noted. I agree with the documentation provided by ASTRID Estrada with no additional comments. Date of Service: September 07, 2023 Patient tells me that he woke up with some nausea and reflux but that this has resolved. no vomiting. no abdominal pain. 09/06 is 8.2 (previously was 8.3). he tells me he has not moved his bowels yet today but that he is getting ready to move them. I had discussed the case with Dr. Rankin and she felt that his platelets and renal function had improved to where EGD could be done. - I discussed with the patient about doing an EGD to further evaluate anemia/history of dark stool. we discussed risks/benefits of procedures. He wishes to continue to decline this being done. - continue with protonix 40mg bid. - continue to monitor hgb/hct and transfuse as needed. - GI will sign off at this time, please contact us with any further issues.
--- NOTE | 2023-09-07 22:58 | Hospitalist Progress Note ---
Date of Service September 07, 2023 Assessment & Plan (1) Acute renal failure: Plan: 72yo male with history of CAD, DM, HTN, AF, recent MRSA bacteremia and foot OM on antibiotics presenting from [facility] with metabolic encephalopathy/confusion as well as shaking, N/V. Patient found to have anion gapped metabolic acidosis, significant FLORECITA on CKD with elevated lactate pH on VBG=7.08. HCO3=14, AG=12. 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 No EKG changes present. He was treated with Insulin/D50 as well as calcium gluconate. IVF given as well. K+ now normal Renal ultrasound negative for obstruction CT abdomen/pelvis ordered on 08/31-again, no obstructive uropathy Further review of the records shows that he was resumed on Entresto as well as taking Jardiance, lisinopril, Lasix, and metformin after discharge last admission His creatinine started rising on 08/22 and then on next check on 08/29 was significantly elevated prompting this admission He also had some N/V and poor p.o. intake the 2 days leading up to admission possibly from opioid use Most likely prerenal etiology causing ATN in the setting of taking multiple offending drugs as above Not likely AIN from antibiotics as UA not consistent with this CK normal, no rhabdo. Development Specialist worsened to 6.89 on 09/01 and he was oliguric. Acidosis is improving on a bicarbonate drip. 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 (2) Acute metabolic encephalopathy: Plan: Patient was completely nonverbal, significantly lethargic, not even able to respond to any commands for 3 to 4 days upon admission with significant myoclonic jerks in all [address] head negative Likely secondary to taking long acting morphine and gabapentin as well as cefepime in setting of FLORECITA--> toxicities of these medications can cause confusion, tremors Also could be some component of uremia Ammonia level normal, not retaining CO2 on ABG Renal failure is likely contributing somewhat as well Now s/p dialysis to dialyze out some of these toxic metabolites, on 09/03 mentation is significantly improved-he is conversational, no further tremors, is able to make his needs known. Still napping frequently Discontinued morphine, cefepime, and gabapentin checked B1 level and started empiric thiamine Advance diet as tolerated today Patient refusing upper endoscopy. Resolved. (3) Thrombocytopenia: Plan: Platelets started dropping on outpatient labs on 08/22 and now are severely low at 19, with coffee-ground emesis and melena x 1 development on 09/01 CT abdomen/pelvis without splenomegaly He does have a liver mass which is noted from previous and will need follow-up when more stable Appreciate hematology consultation-given anemia and thrombocytopenia, workup ordered for TTP/HUS and was negative for evidence of microangiopathic hemolytic anemia. Workup for DIC negative Most likely secondary to linezolid which was just discontinued on 08/28 and is well-known to cause thrombocytopenias Potentially PPI, cefepime could cause thrombocytopenia's as well-cefepime has also been discontinued Given GI bleeding, transfused platelets on 09/01 (3 units) and plts were up to 33, now back down again to 17 but no further bleeding noted Follow-up HIT antibodies but 4 T score is 3-he is getting heparin flushes only through his PICC line Continue holding home Plavix and Eliquis Follow CBC Giving IVIG which could help drug-induced thrombocytopenia as per hematology Elevated INR-could be Vit K deficiency vs low grade DIC? Gave Vit K 10mg and FFP on 09/01, INR now down to 1.3, will follow levels. Check fibrinogen if INR rises again and consider cryoprecipitate as per Heme (4) Anemia: Plan: Hemoglobin dropped acutely to 7.4 from 10.4 on 08/31 and dropped further to 6.9 on 09/01--> transfused 2 units PRBCs on 09/01 as also with melena Hemolysis labs remain negative (TBili,LDH) except UZAIR/Geovani is positive CT abdomen/pelvis 09/01 negative for retroperitoneal bleeding B12 folate and iron studies all ordered-folate is low-replace with 1 mg folic acid daily Likely also a component of anemia of chronic disease and renal failure Heme now more concerned about possible hemolytic anemia with +Geovani and started IVIG-received 2 days worth of dosing Hemoglobin trended back downward again on 09/03-6.7 with no further evidence of GI bleeding Transfuse 1 more unit of PRBCs on 09/03 Patient decided on getting PPI BID instead of scope. (5) Chronic pain: Plan: Patient complaining of severe pain in his feet from PAD and lower back now that he is awake and the morphine has been dialyzed out of his system Start low-dose oxycodone 5 mg p.o. every 8 hours as needed and would not escalate beyond this for now Can also give Tylenol as needed (6) GIB (gastrointestinal bleeding): Plan: As noted above Continue Protonix 40 mg IV twice daily Transfusing blood as needed Most likely gastritis or peptic ulcer disease Was to unstable for endoscopy at this time, but now that mentation improving and renal failure improving, will consult GI for possible EGD on Tuesday given hemoglobin continues to drop and there is no evidence of hemolysis or other explanation (7) Hypoglycemia: Plan: Patient with hypoglycemia on arrival likely from poor renal clearance of insulin in setting of FLORECITA-now resolved on D5 and fluids which have since been stopped on dialysis Continue to hold Lantus and give Novolog SSI only as needed (8) Acidosis: Plan: secondary to lactic acidosis and renal failure-now much improved after being on bicarb drip and receiving dialysis (9) MRSA bacteremia: Plan: Patient with OM of left foot and recent hospitalization for MRSA bacteremia and PNA. Had some gram negative rods on wound gram stain so empirically on Cefepime Continue Doxycycline 100mg po BID until 09/19/2023--> changed to IV given vomiting and inability to take po from encephalopathy Changed Cefepime to Cipro due to possible cefepime toxicity and cause of encephalopathy-renally dosed until 09/19/23 Continue wound care daily dressing changes and packing of the wound on the foot, consult Wound Care nurse No fevers or leukocytosis here to suggest recurrent infection f/u with Vascular was supposed to occur next week-will let vascular know that he is in the hospital if they want to see him in hospital on Tuesday Plan Hypomagnesemia-replace as needed to keep above 2.0, follow mag level in AM Hypocalcemia-may have been also contributing to tremors-replaced and now resolved after corrected for hypoalbuminemia CAD - chronic. stable. no CP or evidence of cardiac ischemia -Holding Plavix for bleeding and thrombocytopenia, can give carvedilol, and atorvastatin when he is able to take p.o. HTN - Chronic. -Continue Carvedilol once able to take po but hold Amlodipine Depression/Anxiety - chronic -Continue Sertraline 75mg po daily when he is able to take p.o. Atrial Fibrillation - paroxysmal, in NSR here -Continue Amiodarone 200mg po daily when able to take p.o. -He typically is on Eliquis but this is currently on hold due to thrombocytopenia and bleeding -continue tele monitoring Neuropathy-HOLD gabapentin due to FLORECITA and encephalopathy DVT proph-hold any anticoagulation for now due to severe thrombocytopenia and bleeding Dispo-continued stay, prognosis improving. Discussed all care with point of contact, Kadi. Admission and Anticipated Discharge Date Admission Date: August 31, 2023 Subjective 72 yo male reports no new symptoms. Review of Systems Review of Systems: All systems reviewed & are unremarkable except as noted in HPI & below Physical Exam Constitutional: WD/WN, vitals as above no acute distress Respiratory: normal respiratory effort; no cough Auscultation: lungs clear to auscultation bilaterally Cardiovascular: RRR, no murmur, no edema Rate/Rhythm: regular rate and regular rhythm Heart Sounds: no murmur Extremities: + edema (1+ pitting edema all four ext) Gastrointestinal (Abdomen): normal bowel sounds, soft, nontender, no hepatosplenomegaly Neurologic: moves all extremities and awake; no focal motor deficits Psychiatric: Orientation: alert, oriented to person, oriented to place and cooperative Results & Data Results & Data Vital Signs (Past 12 Hours) Vital Signs Temp Pulse Resp BP Pulse Ox O2 Del Method 09/07/23 19:38 36.4 C L 84 18 155/89 H 93 Room Air 09/07/23 15:01 36.4 C L 83 18 157/83 H 93 Room Air 09/07/23 11:59 36.3 C L 80 18 150/85 H 93 Room Air PG Care Time/CCT Total # of Minutes Spent Total Time Spent with Patient: Total time spent is greater than 50% in coordination of care (as documented) at patient's floor/unit and/or counseling patient: Coding Level of Care Code 87602 SUB INP/OBS CARE 235MIN Diagnoses Acute renal failure N17.9 Acute metabolic encephalopathy G93.41 Thrombocytopenia D69.6 Anemia D64.9 Anemia type: unspecified type Chronic pain G89.29 GIB (gastrointestinal bleeding) K92.2 GI bleed type/associated pathology: unspecified gastrointestinal hemorrhage type Hypoglycemia E16.2 Acidosis E87.20 MRSA bacteremia R78.81; B95.62 (4) Anemia Anemia type: unspecified type Qualified Code(s): D64.9 - Anemia, unspecified (6) GIB (gastrointestinal bleeding) GI bleed type/associated pathology: unspecified gastrointestinal hemorrhage type Qualified Code(s): K92.2 - Gastrointestinal hemorrhage, unspecified
[2023-09-08 06:26] LABS: Basophils # (auto) 0.03 K/uL (0.00-0.20); Basophils % (auto) 0.5 %; Hematocrit (blood only) 23.4 % (42.0-52.0); Hemoglobin 7.8 g/dl (14.0-18.0); Immature Granulocytes # (auto) 0.04 K/uL (0.01-0.20); Immature Granulocytes % (auto) 0.7 %; Lymphocytes % (auto) 16.6 %; Mean Corpuscular Hgb Conc 33.3 g/dL (32.0-36.0); Mean Corpuscular Volume 83.9 fL (80.0-100.0); Mean Platelet Volume 12.2 fL (9.4-12.4); Monocytes # (auto) 0.76 K/uL (0.11-0.59); Monocytes % (auto) 12.6 %; Neutrophils # (auto) 3.88 K/uL (1.40-6.50); Neutrophils % (auto) 64.6 %; Platelet Count 91 K/uL (130-400); RDW Coefficient of Variation 16.7 % (11.5-14.5); RDW Standard Deviation 51.5 fL (36.4-46.3); Red Blood Count 2.79 M/uL (4.70-6.10); White Blood Count 6.01 K/ul (4.8-10.8)
[2023-09-08 06:40] LABS: Albumin Level 2.4 gm/dl (3.4-5.0); BUN Creatinine Ratio 23.8 (10-20); Calcium 7.3 mg/dl (8.6-10.3); Creatinine Clr Calc Pharmacy 29.1 ml/min; Est GFR (African American) 29.1 ml/min; Est GFR (Non-African American) 25.1 ml/min; Magnesium 1.6 mg/dl (1.7-2.4); Potassium 3.4 mmol/L (3.5-5.1)
[2023-09-08 06:45] LABS: Poikilocytosis Present
[2023-09-08] MEDS: MAGNESIUM SULFATE / D5W 1 GM/100 ML BAG IV SCH (09:13)
[2023-09-08] MEDS: POTASSIUM CHLORIDE CRTAB 20 MEQ TABCR PO STA (09:16)
--- NOTE | 2023-09-08 09:35 | Nephrology Progress Note ---
Date of Service September 08, 2023 Assessment & Plan (1) Acute renal failure: Plan: Creatinine improving. Non-oliguric. Electrolytes acceptable. Potassium and magnesium replacement are being provided. Volume status remains euvolemic. Cody continues demonstrating kidney recovery. FLORECITA clinically consistent with ATN. HD catheter removed. Huizar catheter removed. Baseline creatinine ~1.5-1.6 mg/dL. Low grade proteinuria and microscopic hematuria. Medical history notable for chronic mild hyponatremia, hypertension, diabetes, coronary artery disease, and HFpEF. Started on dialysis on 09/02/2023 via temporary dialysis catheter for progressive worsening of kidney function with anuria and AMS. Second dialysis on 09/03/2023. No HD required since September 02. Medications are appropriately dosed for kidney function. (2) Anemia: Plan: Hematology consultation appreciated. Possible UZAIR positive hemolytic anemia. Also signs of upper GI bleed. PRBC transfusion support has been provided. No plan for EGD at this time. Peripheral smear without schistocytes or blasts. Hgb stable. Cody denies any additional melena this AM. (3) Thrombocytopenia: Plan: Hematology consultation appreciated. s/p 2 doses of IVIG for drug induced thrombocytopenia and possible mild UZAIR positive hemolytic anemia. Platelet count improving. (4) Heart failure with ejection fraction improved from reduced range to preserved range: Plan: Entresto held. Volume status acceptable. Document I/O's. (5) DM (diabetes mellitus): Plan: Continue to hold metformin and Jardiance. Admission and Anticipated Discharge Date Admission Date: August 31, 2023 Subjective No acute events overnight. Cody was resting comfortably in bed this morning. Huizar catheter has been removed. No urinary complaints. Review of Systems Review of Systems: All systems reviewed & are unremarkable except as noted in HPI & below Physical Exam Constitutional: well developed; no acute distress Eyes: + anicteric sclerae; no corneal abnormal ity ENMT: Mouth: no oral mucosal abnormality and oral mucous membranes not dry Neck: normal visual inspection and trachea midline Respiratory: normal respiratory effort Auscultation: lungs clear to auscultation bilaterally Cardiovascular: Rate/Rhythm: regular rate Heart Sounds: normal S1 and normal S2 Extremities: no edema Musculoskeletal: Extremities: no cyanosis and no clubbing Skin: normal turgor; no lesions Neurologic: Motor/Sensory: no tremor and no asterixis Psychiatric: Orientation: alert and oriented x 3 Results & Data Vital Signs (Past 12 Hours) Vital Signs Temp Pulse Pulse Resp BP Pulse Ox O2 Del Method 09/08/23 06:49 36.6 C 99 H 16 143/88 H 99 Room Air 09/08/23 06:08 36.4 C L 82 16 162/83 H 96 Room Air 09/08/23 02:33 36.4 C L 82 16 139/62 94 Room Air 09/07/23 22:42 36.3 C L 78 17 155/79 H 94 Room Air 09/07/23 22:04 85 Laboratory Results Laboratory Results - last 24 hr 09/07/23 09/07/23 09/07/23 11:36 16:18 20:18 WBC RBC Hgb Hct MCV MCH MCHC RDW Std Deviation RDW Coeff of Josh Plt Count MPV Immature Gran % (Auto) Neut % (Auto) Lymph % (Auto) [place] % (Auto) Eos % (Auto) Baso % (Auto) Neut # (Auto) Lymph # (Auto) [place] # (Auto) Eos # (Auto) Baso # (Auto) Immature Gran # (Auto) Poikilocytosis Sodium Potassium Chloride Carbon Dioxide Anion Gap BUN Creatinine Est Cr Clr Drug Dosing Est GFR ( Amer) Est GFR (Non-Af Amer) BUN/Creatinine Ratio Glucose POC Glucose 125 H 135 H 129 H Calcium Phosphorus Magnesium Albumin 09/08/23 06:00 WBC 6.01 RBC 2.79 L Hgb 7.8 L Hct 23.4 L MCV 83.9 MCH 28.0 MCHC 33.3 RDW Std Deviation 51.5 H RDW Coeff of Josh 16.7 H Plt Count 91 L MPV 12.2 Immature Gran % (Auto) 0.7 Neut % (Auto) 64.6 Lymph % (Auto) 16.6 [place] % (Auto) 12.6 Eos % (Auto) 5.0 Baso % (Auto) 0.5 Neut # (Auto) 3.88 Lymph # (Auto) 1.00 L [place] # (Auto) 0.76 H Eos # (Auto) 0.30 Baso # (Auto) 0.03 Immature Gran # (Auto) 0.04 Poikilocytosis Present Sodium 133 L Potassium 3.4 L Chloride 101 Carbon Dioxide 24 Anion Gap 8 BUN 59 H Creatinine 2.48 H Est Cr Clr Drug Dosing 29.1 Est GFR ( Amer) 29.1 Est GFR (Non-Af Amer) 25.1 BUN/Creatinine Ratio 23.8 H Glucose 129 H POC Glucose Calcium 7.3 L Phosphorus 3.0 Magnesium 1.6 L Albumin 2.4 L PG Care Time/CCT Total # of Minutes Spent Total Time Spent with Patient: Total time spent is greater than 50% in coordination of care (as documented) at patient's floor/unit and/or counseling patient: Coding Level of Care Code 98917 SUB INP/OBS CARE 3/50MIN Diagnoses Acute renal failure N17.9 Anemia D64.9 Anemia type: unspecified type Thrombocytopenia D69.6 Heart failure with ejection fraction improved from reduced range to preserved range I50.32 DM (diabetes mellitus) E11.9 (2) Anemia Anemia type: unspecified type Qualified Code(s): D64.9 - Anemia, unspecified
[2023-09-08] MEDS: CIPROFLOXACIN 500 MG TAB PO SCH (17:41)
[2023-09-08] MEDS: DOXYCYCLINE HYCLATE 100 MG CAP PO SCH (20:36)
[2023-09-08] MEDS: PANTOprazole 40 MG TAB PO SCH (20:45)
--- NOTE | 2023-09-08 22:52 | Hospitalist Progress Note ---
Date of Service September 08, 2023 Assessment & Plan (1) Acute renal failure: Plan: 72yo male with history of CAD, DM, HTN, AF, recent MRSA bacteremia and foot OM on antibiotics presenting from [facility] with metabolic encephalopathy/confusion as well as shaking, N/V. Patient found to have anion gapped metabolic acidosis, significant FLORECITA on CKD with elevated lactate pH on VBG=7.08. HCO3=14, AG=12. BUN elevated at 65 an Cr=5.34 (was 58 and 3.96, respectively at 04:15 on 08/30/23 and baseline housetrailer servicer 1.2-1.50) Hyperkalemia with K=5.4. No EKG changes present. He was treated with Insulin/D50 as well as calcium gluconate. IVF given as well. K+ now normal Renal ultrasound negative for obstruction CT abdomen/pelvis ordered on 08/31-again, no obstructive uropathy Further review of the records shows that he was resumed on Entresto as well as taking Jardiance, lisinopril, Lasix, and metformin after discharge last admission His creatinine started rising on 08/22 and then on next check on 08/29 was significantly elevated prompting this admission He also had some N/V and poor p.o. intake the 2 days leading up to admission possibly from opioid use Most likely prerenal etiology causing ATN in the setting of taking multiple offending drugs as above Not likely AIN from antibiotics as UA not consistent with this CK normal, no rhabdo. 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 Acidosis is improving on a bicarbonate drip. 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 Urgent dialysis catheter placed on 09/01 after giving FFP, platelets for coagulopathy Underwent dialysis on 09/01 and again on 09/02 with significant improvement now in mentation and renal function improving, urine output has picked up tremendously housetrailer servicer trending downward to 3.08 on 09/04 mentation continues to be improved on 09/05 Appreciate Nephrology consult Continue to monitor urine output, Huizar catheter in place Follow BMP Continue to HOLD home amlodipine while BPs soft to improve hemodynamics Holding home Entresto, Jardiance, metformin, and Lasix removed HD cathter on 09/05 Patient appears stable on 09/07, creatinine is improving. Awaiting PT/OT eval (2) Acute metabolic encephalopathy: Plan: Patient was completely nonverbal, significantly lethargic, not even able to respond to any commands for 3 to 4 days upon admission with significant myoc lonic jerks in all [address] head negative Likely secondary to taking long acting morphine and gabapentin as well as cefepime in setting of FLORECITA--> toxicities of these medications can cause conf usion, tremors Also could be some component of uremia Ammonia level normal, not retaining CO2 on ABG Renal failure is likely contributing somewhat as well Now s/p dialysis to dialyze out some of these toxic metabolites, on 09/03 mentation is significantly improved-he is conversational, no further tremors, is able to make his needs known. Still napping frequently Discontinued morphine, cefepime, and gabapentin checked B1 level and started empiric thiamine Advance diet as tolerated today Patient refusing upper endoscopy. Resolved. (3) Thrombocytopenia: Plan: Platelets started dropping on outpatient labs on 08/22 and now are severely low at 19, with coffee-ground emesis and melena x 1 development on 09/01 CT abdomen/pelvis without splenomegaly He does have a liver mass which is noted from previous and will need follow-up when more stable Appreciate hematology consultation-given anemia and thrombocytopenia, workup ordered for TTP/HUS and was negative for evidence of microangiopathic hemolytic anemia. Workup for DIC negative Most likely secondary to linezolid which was just discontinued on 08/28 and is well-known to cause thrombocytopenias Potentially PPI, cefepime could cause thrombocytopenia's as well-cefepime has also been discontinued Given GI bleeding, transfused platelets on 09/01 (3 units) and plts were up to 33, now back down again to 17 but no further bleeding noted Follow-up HIT antibodies but 4 T score is 3-he is getting heparin flushes only through his PICC line Continue holding home Plavix and Eliquis Follow CBC Giving IVIG which could help drug-induced thrombocytopenia as per hematology Elevated INR-could be Vit K deficiency vs low grade DIC? Gave Vit K 10mg and FFP on 09/01, INR now down to 1.3, will follow levels. Check fibrinogen if INR rises again and consider cryoprecipitate as per Heme (4) Anemia: Plan: Hemoglobin dropped acutely to 7.4 from 10.4 on 08/31 and dropped further to 6.9 on 09/01--> transfused 2 units PRBCs on 09/01 as also with melena Hemolysis labs remain negative (TBili,LDH) except UZAIR/Geovani is positive CT abdomen/pelvis 09/01 negative for retroperitoneal bleeding B12 folate and iron studies all ordered-folate is low-replace with 1 mg folic acid daily Likely also a component of anemia of chronic disease and renal failure Heme now more concerned about possible hemolytic anemia with +Geovani and started IVIG-received 2 days worth of dosing Hemoglobin trended back downward again on 09/03-.7 with no further evidence of GI bleeding Transfuse 1 more unit of PRBCs on 09/03 Patient decided on getting PPI BID instead of scope. (5) Chronic pain: Plan: Patient complaining of severe pain in his feet from PAD and lower back now that he is awake and the morphine has been dialyzed out of his system Start low-dose oxycodone 5 mg p.o. every 8 hours as needed and would not escalate beyond this for now Can also give Tylenol as needed (6) GIB (gastrointestinal bleeding): Plan: As noted above Continue Protonix 40 mg IV twice daily Transfusing blood as needed Most likely gastritis or peptic ulcer disease Was to unstable for endoscopy at this time, but now that mentation improving and renal failure improving, will consult GI for possible EGD on Tuesday given hemoglobin continues to drop and there is no evidence of hemolysis or other explanation (7) Hypoglycemia: Plan: Patient with hypoglycemia on arrival likely from poor renal clearance of insulin in setting of FLORECITA-now resolved on D5 and fluids which have since been stopped on dialysis Continue to hold Lantus and give Novolog SSI only as needed (8) Acidosis: Plan: secondary to lactic acidosis and renal failure-now much improved after being on bicarb drip and receiving dialysis (9) MRSA bacteremia: Plan: Patient with OM of left foot and recent hospitalization for MRSA bacteremia and PNA. Had some gram negative rods on wound gram stain so empirically on Cefepime Continue Doxycycline 100mg po BID until 09/19/2023--> changed to IV given vomiting and inability to take po from encephalopathy Changed Cefepime to Cipro due to possible cefepime toxicity and cause of enceph alopathy-renally dosed until 09/19/23 Continue wound care daily dressing changes and packing of the wound on the foot, consult Wound Care nurse No fevers or leukocytosis here to suggest recurrent infection f/u with Vascular was supposed to occur next week-will let vascular know that he is in the hospital if they want to see him in hospital on Tuesday Plan Hypomagnesemia-replace as needed to keep above 2.0, follow mag level in AM Hypocalcemia-may have been also contributing to tremors-replaced and now resolved after corrected for hypoalbuminemia CAD - chronic. stable. no CP or evidence of cardiac ischemia -Holding Plavix for bleeding and thrombocytopenia, can give carvedilol, and atorvastatin when he is able to take p.o. HTN - Chronic. -Continue Carvedilol once able to take po but hold Amlodipine Depression/Anxiety - chronic -Continue Sertraline 75mg po daily when he is able to take p.o. Atrial Fibrillation - paroxysmal, in NSR here -Continue Amiodarone 200mg po daily when able to take p.o. -He typically is on Eliquis but this is currently on hold due to thrombocytopenia and bleeding -continue tele monitoring Neuropathy-HOLD gabapentin due to FLORECITA and encephalopathy DVT proph-hold any anticoagulation for now due to severe thrombocytopenia and bleeding Dispo-continued stay, prognosis improving. Discussed all care with point of contact, Kadi. Admission and Anticipated Discharge Date Admission Date: August 31, 2023 Subjective Patient reports no new symptoms. Review of Systems Review of Systems: All systems reviewed & are unremarkable except as noted in HPI & below Physical Exam Constitutional: WD/WN, vitals as above no acute distress Respiratory: normal respiratory effort; no cough Auscultation: lungs clear to auscultation bilaterally Cardiovascular: RRR, no murmur, no edema Rate/Rhythm: regular rate and regular rhythm Heart Sounds: no murmur Extremities: + edema (1+ pitting edema all four ext) Gastrointestinal (Abdomen): normal bowel sounds, soft, nontender, no hepatosplenomegaly Neurologic: moves all extremities and awake; no focal motor deficits Psychiatric: Orientation: alert, oriented to person, oriented to place and cooperative Results & Data Results & Data Vital Signs (Past 12 Hours) Vital Signs Temp Pulse Resp BP Pulse Ox O2 Del Method 09/08/23 22:21 36.5 C 72 16 142/79 H 93 Room Air 09/08/23 21:28 Room Air 09/08/23 19:30 36.5 C 79 18 149/75 H 96 Room Air 09/08/23 14:59 36.4 C L 83 18 157/82 H 95 Room Air 09/08/23 11:50 36.5 C 76 18 129/79 97 Room Air PG Care Time/CCT Total # of Minutes Spent Total Time Spent with Patient: Total time spent is greater than 50% in coordination of care (as documented) at patient's floor/unit and/or counseling patient: Coding Level of Care Code 12140 SUB INP/OBS CARE 2/35MIN Diagnoses Acute renal failure N17.9 Acute metabolic encephalopathy G93.41 Thrombocytopenia D69.6 Anemia D64.9 Anemia type: unspecified type Chronic pain G89.29 GIB (gastrointestinal bleeding) K92.2 GI bleed type/associated pathology: unspecified gastrointestinal hemorrhage type Hypoglycemia E16.2 Acidosis E87.20 MRSA bacteremia R78.81; B95.62 (4) Anemia Anemia type: unspecified type Qualified Code(s): D64.9 - Anemia, unspecified (6) GIB (gastrointestinal bleeding) GI bleed type/associated pathology: unspecified gastrointestinal hemorrhage type Qualified Code(s): K92.2 - Gastrointestinal hemorrhage, unspecified
[2023-09-09] MEDS: THIAMINE HCL 100 MG TAB PO SCH (07:55)
[2023-09-09 08:17] LABS: Basophils # (auto) 0.02 K/uL (0.00-0.20); Basophils % (auto) 0.4 %; Eosinophils # (auto) 0.24 K/uL (0.00-0.50); Eosinophils % (auto) 5.1 %; Hematocrit (blood only) 22.3 % (42.0-52.0); Hemoglobin 7.2 g/dl (14.0-18.0); Immature Granulocytes # (auto) 0.02 K/uL (0.01-0.20); Immature Granulocytes % (auto) 0.4 %; Lymphocytes # (auto) 0.86 K/uL (1.20-3.40); Lymphocytes % (auto) 18.3 %; Mean Corpuscular Hemoglobin 27.3 pg (25.0-34.0); Mean Corpuscular Hgb Conc 32.3 g/dL (32.0-36.0); Mean Corpuscular Volume 84.5 fL (80.0-100.0); Mean Platelet Volume 12.1 fL (9.4-12.4); Monocytes # (auto) 0.62 K/uL (0.11-0.59); Monocytes % (auto) 13.2 %; Neutrophils # (auto) 2.94 K/uL (1.40-6.50); Neutrophils % (auto) 62.6 %; Platelet Count 128 K/uL (130-400); RDW Coefficient of Variation 16.8 % (11.5-14.5); RDW Standard Deviation 52.2 fL (36.4-46.3); Red Blood Count 2.64 M/uL (4.70-6.10)
[2023-09-09 08:27] LABS: BUN Creatinine Ratio 24.2 (10-20); Calcium 7.4 mg/dl (8.6-10.3); Creatinine Clr Calc Pharmacy 31.8 ml/min; Est GFR (African American) 32.4 ml/min; Magnesium 1.7 mg/dl (1.7-2.4); Potassium 3.5 mmol/L (3.5-5.1)
[2023-09-09 09:05] LABS: Polychromasia 1+
--- NOTE | 2023-09-09 09:36 | Nephrology Progress Note ---
Date of Service September 09, 2023 Assessment & Plan (1) Acute renal failure: Plan: Creatinine continues improving. Urine output remains good and Cody has maintained a net daily negative fluid balance without diuretics. Volume status remains euvolemic. Cody continues demonstrating kidney recovery. FLORECITA clinically consistent with ATN. Baseline creatinine ~1.5-1.6 mg/dL. Low grade proteinuria and microscopic hematuria. Medical history notable for chronic mild hyponatremia, hypertension, diabetes, coronary artery disease, and HFpEF. Started on dialysis on 09/02/2023 via temporary dialysis catheter for progressive worsening of kidney function with anuria and AMS. Second dialysis on 09/03/2023. No HD required since September 02. Medications are appropriately dosed for kidney function. Continue to hold metformin, Jardiance, Entresto, and diuretics pending additional monitoring and outpatient follow up. Repeat labs early next week. Please arrange outpatient follow up with Dr. Davis within the next 2 weeks. (2) Anemia: Plan: Hematology suspected possible UZAIR positive hemolytic anemia. Also signs of upper GI bleed - several days of small amounts of melena which have resolved. Remains on PPI therapy. Platelet count improved. No plan for EGD at this time. Peripheral smear without schistocytes or blasts. Hgb stable. Cody denies any additional melena this AM. (3) Thrombocytopenia: Plan: Hematology consultation--> s/p 2 doses of IVIG for drug induced thrombocytopenia and possible mild UZAIR positive hemolytic anemia. Platelet count improving. (4) Heart failure with ejection fraction improved from reduced range to preserved range: Plan: Entresto held. Volume status acceptable. Document I/O's. Continue to hold diuretics for now. ARB therapy can be restarted as outpatient once creatinine stabilizes. (5) DM (diabetes mellitus): Plan: Continue to hold metformin and Jardiance for now pending outpatient follow up. Admission and Anticipated Discharge Date Admission Date: August 31, 2023 Subjective No acute events overnight. Cody is resting comfortably in bed this morning. He feels well. He told me that he will likely be discharged to [facility] today. No fluid retention or edema. He denies shortness of breath. Appetite is good. Review of Systems Review of Systems: All systems reviewed & are unremarkable except as noted in HPI & below Physical Exam Constitutional: well developed; no acute distress Eyes: + anicteric sclerae; no corneal abnormal ity ENMT: Mouth: no oral mucosal abnormality and oral mucous membranes not dry Neck: normal visual inspection and trachea midline Respiratory: normal respiratory effort Auscultation: lungs clear to auscultation bilaterally Cardiovascular: Rate/Rhythm: regular rate Heart Sounds: normal S1 and normal S2 Extremities: no edema Musculoskeletal: Extremities: no cyanosis and no clubbing Skin: normal turgor; no lesions Neurologic: Motor/Sensory: no tremor and no asterixis Psychiatric: Orientation: alert and oriented x 3 Results & Data Vital Signs (Past 12 Hours) Vital Signs Temp Pulse Resp BP Pulse Ox O2 Del Method 09/09/23 07:53 36.4 C L 76 18 171/84 H 96 Room Air 09/09/23 02:47 36.9 C 86 17 166/82 H 98 Room Air 09/08/23 22:21 36.5 C 72 16 142/79 H 93 Room Air Laboratory Results Laboratory Results - last 24 hr 09/02/23 09/08/23 09/08/23 04:50 11:43 16:09 WBC RBC Hgb Hct MCV MCH MCHC RDW Std Deviation RDW Coeff of Josh Plt Count MPV Immature Gran % (Auto) Neut % (Auto) Lymph % (Auto) [place] % (Auto) Eos % (Auto) Baso % (Auto) Neut # (Auto) Lymph # (Auto) [place] # (Auto) Eos # (Auto) Baso # (Auto) Immature Gran # (Auto) Polychromasia Sodium Potassium Chloride Carbon Dioxide Anion Gap BUN Creatinine Est Cr Clr Drug Dosing Est GFR ( Amer) Est GFR (Non-Af Amer) BUN/Creatinine Ratio Glucose POC Glucose 160 H 134 H Calcium Magnesium Whole Bld Vitamin B1 57 L 09/08/23 09/09/23 09/09/23 20:11 07:39 07:46 WBC 4.70 L RBC 2.64 L Hgb 7.2 L Hct 22.3 L MCV 84.5 MCH 27.3 MCHC 32.3 RDW Std Deviation 52.2 H RDW Coeff of Josh 16.8 H Plt Count 128 L MPV 12.1 Immature Gran % (Auto) 0.4 Neut % (Auto) 62.6 Lymph % (Auto) 18.3 [place] % (Auto) 13.2 Eos % (Auto) 5.1 Baso % (Auto) 0.4 Neut # (Auto) 2.94 Lymph # (Auto) 0.86 L [place] # (Auto) 0.62 H Eos # (Auto) 0.24 Baso # (Auto) 0.02 Immature Gran # (Auto) 0.02 Polychromasia 1+ Sodium 137 Potassium 3.5 Chloride 104 Carbon Dioxide 26 Anion Gap 7 BUN 55 H Creatinine 2.27 H Est Cr Clr Drug Dosing 31.8 Est GFR ( Amer) 32.4 Est GFR (Non-Af Amer) 28.0 BUN/Creatinine Ratio 24.2 H Glucose 126 H POC Glucose 160 H 139 H Calcium 7.4 L Magnesium 1.7 Whole Bld Vitamin B1 PG Care Time/CCT Total # of Minutes Spent Total Time Spent with Patient: Total time spent is greater than 50% in coordination of care (as documented) at patient's floor/unit and/or counseling patient: Coding Level of Care Code 20197 SUB INP/OBS CARE 3/50MIN Diagnoses Acute renal failure N17.9 Anemia D64.9 Anemia type: unspecified type Thrombocytopenia D69.6 Heart failure with ejection fraction improved from reduced range to preserved range I50.32 DM (diabetes mellitus) E11.9 (2) Anemia Anemia type: unspecified type Qualified Code(s): D64.9 - Anemia, unspecified
[2023-09-09] MEDS: CIPROFLOXACIN 500 MG TAB PO SCH (10:27)
--- NOTE | 2023-09-09 23:56 | Hospitalist Progress Note ---
Date of Service September 09, 2023 Assessment & Plan (1) Acute renal failure: Plan: 72yo male with history of CAD, DM, HTN, AF, recent MRSA bacteremia and foot OM on antibiotics presenting from [facility] with metabolic encephalopathy/confusion as well as shaking, N/V. Patient found to have anion gapped metabolic acidosis, significant FLORECITA on CKD with elevated lactate pH on VBG=7.08. HCO3=14, AG=12. 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 No EKG changes present. He was treated with Insulin/D50 as well as calcium gluconate. IVF given as well. K+ now normal Renal ultrasound negative for obstruction CT abdomen/pelvis ordered on 08/31-again, no obstructive uropathy Further review of the records shows that he was resumed on Entresto as well as taking Jardiance, lisinopril, Lasix, and metformin after discharge last admission His creatinine started rising on 08/22 and then on next check on 08/29 was significantly elevated prompting this admission He also had some N/V and poor p.o. intake the 2 days leading up to admission possibly from opioid use Most likely prerenal etiology causing ATN in the setting of taking multiple offending drugs as above Not likely AIN from antibiotics as UA not consistent with this CK normal, no rhabdo. Communications Analyst worsened to 6.89 on 09/01 and he was oliguric. Acidosis is improving on a bicarbonate drip. He was transferred to the ICU for placement of dialysis catheter-appreciate manager mechanical management Urgent dialysis catheter placed on 09/01 after giving FFP, platelets for coagulopathy Underwent dialysis on 09/01 and again on 09/02 with significant improvement now in mentation and renal function improving, urine output has picked up tremendously locomotive oiler trending downward to 3.08 on 09/04 mentation continues to be improved on 09/05 Appreciate Nephrology consult Continue to monitor urine output, Huizar catheter in place Follow BMP Continue to HOLD home amlodipine while BPs soft to improve hemodynamics Holding home Entresto, Jardiance, metformin, and Lasix removed HD cathter on 09/05 Patient appears stable on 09/08, creatinine is improving. Monitoring hemoglobin. PT/OT eval completed. (2) Acute metabolic encephalopathy: Plan: Patient was completely nonverbal, significantly lethargic, not even able to respond to any commands for 3 to 4 days upon admission with significant myoclonic jerks in all [address] head negative Likely secondary to taking long acting morphine and gabapentin as well as cefepime in setting of FLORECITA--> toxicities of these medications can cause confusion, tremors Also could be some component of uremia Ammonia level normal, not retaining CO2 on ABG Renal failure is likely contributing somewhat as well Now s/p dialysis to dialyze out some of these toxic metabolites, on 09/03 mentation is significantly improved-he is conversational, no further tremors, is able to make his needs known. Still napping frequently Discontinued morphine, cefepime, and gabapentin checked B1 level and started empiric thiamine Advance diet as tolerated today Patient refusing upper endoscopy. Resolved. (3) Thrombocytopenia: Plan: Platelets started dropping on outpatient labs on 08/22 and now are severely low at 19, with coffee-ground emesis and melena x 1 development on 09/01 CT abdomen/pelvis without splenomegaly He does have a liver mass which is noted from previous and will need follow-up when more stable Appreciate hematology consultation-given anemia and thrombocytopenia, workup ordered for TTP/HUS and was negative for evidence of microangiopathic hemolytic anemia. Workup for DIC negative Most likely secondary to linezolid which was just discontinued on 08/28 and is well-known to cause thrombocytopenias Potentially PPI, cefepime could cause thrombocytopenia's as well-cefepime has also been discontinued Given GI bleeding, transfused platelets on 09/01 (3 units) and plts were up to 33, now back down again to 17 but no further bleeding noted Follow-up HIT antibodies but 4 T score is 3-he is getting heparin flushes only through his PICC line Continue holding home Plavix and Eliquis Follow CBC Giving IVIG which could help drug-induced thrombocytopenia as per hematology Elevated INR-could be Vit K deficiency vs low grade DIC? Gave Vit K 10mg and FFP on 09/01, INR now down to 1.3, will follow levels. Check fibrinogen if INR rises again and consider cryoprecipitate as per Heme (4) Anemia: Plan: Hemoglobin dropped acutely to 7.4 from 10.4 on 08/31 and dropped further to 6.9 on 09/01--> transfused 2 units PRBCs on 09/01 as also with melena Hemolysis labs remain negative (TBili,LDH) except UZAIR/Geovani is positive CT abdomen/pelvis 09/01 negative for retroperitoneal bleeding B12 folate and iron studies all ordered-folate is low-replace with 1 mg folic acid daily Likely also a component of anemia of chronic disease and renal failure Heme now more concerned about possible hemolytic anemia with +Geovani and started IVIG-received 2 days worth of dosing Hemoglobin trended back downward again on 09/03-.7 with no further evidence of GI bleeding Transfuse 1 more unit of PRBCs on 09/03 Patient decided on getting PPI BID instead of scope. (5) Chronic pain: Plan: Patient complaining of severe pain in his feet from PAD and lower back now that he is awake and the morphine has been dialyzed out of his system Start low-dose oxycodone 5 mg p.o. every 8 hours as needed and would not escalate beyond this for now Can also give Tylenol as needed (6) GIB (gastrointestinal bleeding): Plan: As noted above Continue Protonix 40 mg IV twice daily Transfusing blood as needed Most likely gastritis or peptic ulcer disease Was to unstable for endoscopy at this time, but now that mentation improving and renal failure improving, will consult GI for possible EGD on Tuesday given hemoglobin continues to drop and there is no evidence of hemolysis or other explanation (7) Hypoglycemia: Plan: Patient with hypoglycemia on arrival likely from poor renal clearance of insulin in setting of FLORECITA-now resolved on D5 and fluids which have since been stopped on dialysis Continue to hold Lantus and give Novolog SSI only as needed (8) Acidosis: Plan: secondary to lactic acidosis and renal failure-now much improved after being on bicarb drip and receiving dialysis (9) MRSA bacteremia: Plan: Patient with OM of left foot and recent hospitalization for MRSA bacteremia and PNA. Had some gram negative rods on wound gram stain so empirically on Cefepime Continue Doxycycline 100mg po BID until 09/19/2023--> changed to IV given vomiting and inability to take po from encephalopathy Changed Cefepime to Cipro due to possible cefepime toxicity and cause of encephalopathy-renally dosed until 09/19/23 Continue wound care daily dressing changes and packing of the wound on the foot, consult Wound Care nurse No fevers or leukocytosis here to suggest recurrent infection f/u with Vascular was supposed to occur next week-will let vascular know that he is in the hospital if they want to see him in hospital on Tuesday Plan Hypomagnesemia-replace as needed to keep above 2.0, follow mag level in AM Hypocalcemia-may have been also contributing to tremors-replaced and now resolved after corrected for hypoalbuminemia CAD - chronic. stable. no CP or evidence of cardiac ischemia -Holding Plavix for bleeding and thrombocytopenia, can give carvedilol, and atorvastatin when he is able to take p.o. HTN - Chronic. -Continue Carvedilol once able to take po but hold Amlodipine Depression/Anxiety - chronic -Continue Sertraline 75mg po daily when he is able to take p.o. Atrial Fibrillation - paroxysmal, in NSR here -Continue Amiodarone 200mg po daily when able to take p.o. -He typically is on Eliquis but this is currently on hold due to thrombocytopenia and bleeding -continue tele monitoring Neuropathy-HOLD gabapentin due to FLORECITA and encephalopathy DVT proph-hold any anticoagulation for now due to severe thrombocytopenia and bleeding Dispo-continued stay, prognosis improving. Discussed all care with point of contact, Kadi. Admission and Anticipated Discharge Date Admission Date: August 31, 2023 Subjective 72 yo male reports no new symptoms. Review of Systems Review of Systems: All systems reviewed & are unremarkable except as noted in HPI & below Physical Exam Constitutional: WD/WN, vitals as above no acute distress Respiratory: normal respiratory effort; no cough Auscultation: lungs clear to auscultation bilaterally Cardiovascular: RRR, no murmur, no edema Rate/Rhythm: regular rate and regular rhythm Heart Sounds: no murmur Extremities: + edema (1+ pitting edema all four ext) Gastrointestinal (Abdomen): normal bowel sounds, soft, nontender, no hepatosplenomegaly Neurologic: moves all extremities and awake; no focal motor deficits Psychiatric: Orientation: alert, oriented to person, oriented to place and cooperative Results & Data Results & Data Vital Signs (Past 12 Hours) Vital Signs Temp Pulse Pulse Resp BP Pulse Ox O2 Del Method 09/09/23 23:29 73 09/09/23 22:47 36.6 C 76 18 149/74 H 95 Room Air 09/09/23 21:18 Room Air 09/09/23 18:59 36.4 C L 73 16 158/69 H 92 Room Air 09/09/23 16:43 74 09/09/23 16:43 Room Air 09/09/23 15:27 36.3 C L 76 18 158/77 H 95 Room Air PG Care Time/CCT Total # of Minutes Spent Total Time Spent with Patient: Total time spent is greater than 50% in coordination of care (as documented) at patient's floor/unit and/or counseling patient: Coding Level of Care Code 71305 SUB INP/OBS CARE 2/35MIN Diagnoses Acute renal failure N17.9 Acute metabolic encephalopathy G93.41 Thrombocytopenia D69.6 Anemia D64.9 Anemia type: unspecified type Chronic pain G89.29 GIB (gastrointestinal bleeding) K92.2 GI bleed type/associated pathology: unspecified gastrointestinal hemorrhage type Hypoglycemia E16.2 Acidosis E87.20 MRSA bacteremia R78.81; B95.62 (4) Anemia Anemia type: unspecified type Qualified Code(s): D64.9 - Anemia, unspecified (6) GIB (gastrointestinal bleeding) GI bleed type/associated pathology: unspecified gastrointestinal hemorrhage type Qualified Code(s): K92.2 - Gastrointestinal hemorrhage, unspecified
[2023-09-10 08:18] LABS: BUN Creatinine Ratio 22.2 (10-20); Calcium 7.3 mg/dl (8.6-10.3); Creatinine Clr Calc Pharmacy 35.5 ml/min; Est GFR (African American) 37.1 ml/min; Potassium 3.5 mmol/L (3.5-5.1)
[2023-09-10 08:30] LABS: Hematocrit (blood only) 21.1 % (42.0-52.0); Hemoglobin 6.9 g/dl (14.0-18.0); Mean Corpuscular Hemoglobin 27.7 pg (25.0-34.0); Mean Corpuscular Hgb Conc 32.7 g/dL (32.0-36.0); Mean Corpuscular Volume 84.7 fL (80.0-100.0); Mean Platelet Volume 11.6 fL (9.4-12.4); Platelet Count 167 K/uL (130-400); RDW Coefficient of Variation 16.8 % (11.5-14.5); RDW Standard Deviation 52.3 fL (36.4-46.3); Red Blood Count 2.49 M/uL (4.70-6.10); White Blood Count 4.81 K/ul (4.8-10.8)
[2023-09-10] MEDS ORDERED: SODIUM CHLORIDE 0.9% 250 ML IV PRN (14:37)
--- NOTE | 2023-09-10 21:11 | Hospitalist Progress Note ---
Date of Service September 10, 2023 Assessment & Plan (1) Acute renal failure: Plan: 72yo male with history of CAD, DM, HTN, AF, recent MRSA bacteremia and foot OM on antibiotics presenting from [facility] with metabolic encephalopathy/confusion as well as shaking, N/V. Patient found to have anion gapped metabolic acidosis, significant FLORECITA on CKD with elevated lactate pH on VBG=7.08. HCO3=14, AG=12. 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 No EKG changes present. He was treated with Insulin/D50 as well as calcium gluconate. IVF given as well. K+ now normal Renal ultrasound negative for obstruction CT abdomen/pelvis ordered on 08/31-again, no obstructive uropathy Further review of the records shows that he was resumed on Entresto as well as taking Jardiance, lisinopril, Lasix, and metformin after discharge last admission His creatinine started rising on 08/22 and then on next check on 08/29 was significantly elevated prompting this admission He also had some N/V and poor p.o. intake the 2 days leading up to admission possibly from opioid use Most likely prerenal etiology causing ATN in the setting of taking multiple offending drugs as above Not likely AIN from antibiotics as UA not consistent with this CK normal, no rhabdo. Doper Operator worsened to 6.89 on 09/01 and he was oliguric. Acidosis is improving on a bicarbonate drip. He was transferred to the ICU for placement of dialysis catheter-appreciate phlebotomy coordinator management Urgent dialysis catheter placed on 09/01 after giving FFP, platelets for coagulopathy Underwent dialysis on 09/01 and again on 09/02 with significant improvement now in mentation and renal function improving, urine output has picked up tremendously artificial limb fitter trending downward to 3.08 on 09/04 mentation continues to be improved on 09/05 Appreciate Nephrology consult Continue to HOLD home amlodipine while BPs soft to improve hemodynamics Holding home Entresto, Jardiance, metformin, and Lasix Creatinine improved. removed HD cathter on 09/05 Monitoring hemoglobin. PT/OT eval completed. (2) Anemia: Plan: Hemoglobin dropped acutely to 7.4 from 10.4 on 08/31 and dropped further to 6.9 on 09/01--> transfused 2 units PRBCs on 09/01 as also with melena Hemolysis labs remain negative (TBili,LDH) except UZAIR/Geovani is positive CT abdomen/pelvis 09/01 negative for retroperitoneal bleeding B12 folate and iron studies all ordered-folate is low-replace with 1 mg folic acid daily Likely also a component of anemia of chronic disease and renal failure Heme now more concerned about possible hemolytic anemia with +Geovani and started IVIG-received 2 days worth of dosing Transfuse 1 more unit of PRBCs on 09/03 Hemoglobin trended back downward again on 09/09-6.7 but now with dark stools Patient decided conservative management foregoing endoscopy, however now with repeat hemoglobin dropping, he is open to having a scope. reconsulted GI on 09/09 (3) Acute metabolic encephalopathy: Plan: Patient was completely nonverbal, significantly lethargic, not even able to respond to any commands for 3 to 4 days upon admission with significant myoclonic jerks in all [address] head negative Likely secondary to taking long acting morphine and gabapentin as well as cefepime in setting of FLORECITA--> toxicities of these medications can cause confusion, tremors Also could be some component of uremia Ammonia level normal, not retaining CO2 on ABG Renal failure is likely contributing somewhat as well Now s/p dialysis to dialyze out some of these toxic metabolites, on 09/03 mentation is significantly improved-he is conversational, no further tremors, is able to make his needs known. Still napping frequently Discontinued morphine, cefepime, and gabapentin checked B1 level and started empiric thiamine Advance diet as tolerated today Patient refusing upper endoscopy. Resolved. (4) Thrombocytopenia: Plan: Platelets started dropping on outpatient labs on 08/22 and now are severely low at 19, with coffee-ground emesis and melena x 1 development on 09/01 CT abdomen/pelvis without splenomegaly He does have a liver mass which is noted from previous and will need follow-up when more stable Appreciate hematology consultation-given anemia and thrombocytopenia, workup ordered for TTP/HUS and was negative for evidence of microangiopathic hemolytic anemia. Workup for DIC negative Most likely secondary to linezolid which was just discontinued on 08/28 and is well-known to cause thrombocytopenias Potentially PPI, cefepime could cause thrombocytopenia's as well-cefepime has also been discontinued Given GI bleeding, transfused platelets on 09/01 (3 units) and plts were up to 33, now back down again to 17 but no further bleeding noted Follow-up HIT antibodies but 4 T score is 3-he is getting heparin flushes only through his PICC line Continue holding home Plavix and Eliquis Follow CBC Giving IVIG which could help drug-induced thrombocytopenia as per hematology Elevated INR-could be Vit K deficiency vs low grade DIC? Gave Vit K 10mg and FFP on 09/01, INR now down to 1.3, will follow levels. Check fibrinogen if INR rises again and consider cryoprecipitate as per Heme (5) Chronic pain: Plan: Patient complaining of severe pain in his feet from PAD and lower back now that he is awake and the morphine has been dialyzed out of his system Start low-dose oxycodone 5 mg p.o. every 8 hours as needed and would not escalate beyond this for now Can also give Tylenol as needed (6) GIB (gastrointestinal bleeding): Plan: As noted above Continue Protonix 40 mg IV twice daily Transfusing blood as needed Most likely gastritis or peptic ulcer disease Was to unstable for endoscopy at this time, but now that mentation improving and renal failure improving, will consult GI for possible EGD on Tuesday given hemoglobin continues to drop and there is no evidence of hemolysis or other explanation (7) Hypoglycemia: Plan: Patient with hypoglycemia on arrival likely from poor renal clearance of insulin in setting of FLORECITA-now resolved on D5 and fluids which have since been stopped on dialysis Continue to hold Lantus and give Novolog SSI only as needed (8) Acidosis: Plan: secondary to lactic acidosis and renal failure-now much improved after being on bicarb drip and receiving dialysis (9) MRSA bacteremia: Plan: Patient with OM of left foot and recent hospitalization for MRSA bacteremia and PNA. Had some gram negative rods on wound gram stain so empirically on Cefepime Continue Doxycycline 100mg po BID until 09/19/2023--> changed to IV given vomiting and inability to take po from encephalopathy Changed Cefepime to Cipro due to possible cefepime toxicity and cause of encephalopathy-renally dosed until 09/19/23 Continue wound care daily dressing changes and packing of the wound on the foot, consult Wound Care nurse No fevers or leukocytosis here to suggest recurrent infection f/u with Vascular was supposed to occur next week-will let vascular know that he is in the hospital if they want to see him in hospital on Tuesday Plan Hypomagnesemia-replace as needed to keep above 2.0, follow mag level in AM Hypocalcemia-may have been also contributing to tremors-replaced and now resolved after corrected for hypoalbuminemia CAD - chronic. stable. no CP or evidence of cardiac ischemia -Holding Plavix for bleeding and thrombocytopenia, can give carvedilol, and atorvastatin when he is able to take p.o. HTN - Chronic. -Continue Carvedilol once able to take po but hold Amlodipine Depression/Anxiety - chronic -Continue Sertraline 75mg po daily when he is able to take p.o. Atrial Fibrillation - paroxysmal, in NSR here -Continue Amiodarone 200mg po daily when able to take p.o. -He typically is on Eliquis but this is currently on hold due to thrombocy topenia and bleeding -continue tele monitoring Neuropathy-HOLD gabapentin due to FLORECITA and encephalopathy DVT proph-hold any anticoagulation for now due to severe thrombocytopenia and bleeding Dispo-continued stay, prognosis improving. Discussed all care with point of contact, Kadi. Admission and Anticipated Discharge Date Admission Date: August 31, 2023 Subjective Nurses reports patient's stools have been black Patient reports he has not been checking his stools. Review of Systems Review of Systems: All systems reviewed & are unremarkable except as noted in HPI & below Physical Exam Constitutional: WD/WN, vitals as above no acute distress Respiratory: normal respiratory effort; no cough Auscultation: lungs clear to auscultation bilaterally Cardiovascular: RRR, no murmur, no edema Rate/Rhythm: regular rate and regular rhythm Heart Sounds: no murmur Extremities: + edema (1+ pitting edema all four ext) Gastrointestinal (Abdomen): normal bowel sounds, soft, nontender, no hepatosplenomegaly Neurologic: moves all extremities and awake; no focal motor deficits Psychiatric: Orientation: alert, oriented to person, oriented to place and cooperative Results & Data Results & Data Vital Signs (Past 12 Hours) Vital Signs Temp Pulse Pulse Resp BP BP Pulse Ox 09/10/23 20:15 36.3 C L 77 18 161/88 H 94 09/10/23 19:46 36.6 C 80 20 169/85 H 95 09/10/23 19:45 36.4 C L 76 20 164/88 H 95 09/10/23 19:30 36.5 C 81 20 170/78 H 95 09/10/23 19:11 36.3 C L 80 20 167/80 H 95 09/10/23 15:36 36.8 C 65 18 162/75 H 95 09/10/23 14:00 60 09/10/23 11:52 36.5 C 69 19 145/72 H 97 O2 Del Method 09/10/23 20:15 09/10/23 19:46 09/10/23 19:45 09/10/23 19:30 09/10/23 19:11 09/10/23 15:36 Room Air 09/10/23 14:00 09/10/23 11:52 Room Air PG Care Time/CCT Total # of Minutes Spent Total Time Spent with Patient: Total time spent is greater than 50% in coordination of care (as documented) at patient's floor/unit and/or counseling patient: Coding Level of Care Code 68646 SUB INP/OBS CARE 2/35MIN Diagnoses Acute renal failure N17.9 Anemia D64.9 Anemia type: unspecified type Acute metabolic encephalopathy G93.41 Thrombocytopenia D69.6 Chronic pain G89.29 GIB (gastrointestinal bleeding) K92.2 GI bleed type/associated pathology: unspecified gastrointestinal hemorrhage type Hypoglycemia E16.2 Acidosis E87.20 MRSA bacteremia R78.81; B95.62 (2) Anemia Anemia type: unspecified type Qualified Code(s): D64.9 - Anemia, unspecified (6) GIB (gastrointestinal bleeding) GI bleed type/associated pathology: unspecified gastrointestinal hemorrhage type Qualified Code(s): K92.2 - Gastrointestinal hemorrhage, unspecified
[2023-09-11 07:08] LABS: Hematocrit (blood only) 23.8 % (42.0-52.0); Mean Corpuscular Hemoglobin 28.3 pg (25.0-34.0); Mean Corpuscular Hgb Conc 33.6 g/dL (32.0-36.0); Mean Corpuscular Volume 84.1 fL (80.0-100.0); Mean Platelet Volume 11.4 fL (9.4-12.4); Platelet Count 194 K/uL (130-400); RDW Coefficient of Variation 16.2 % (11.5-14.5); RDW Standard Deviation 49.3 fL (36.4-46.3); Red Blood Count 2.83 M/uL (4.70-6.10); White Blood Count 5.23 K/ul (4.8-10.8)
[2023-09-11 07:28] LABS: BUN Creatinine Ratio 19.3 (10-20); Calcium 7.2 mg/dl (8.6-10.3); Creatinine Clr Calc Pharmacy 38.6 ml/min; Est GFR (Non-African American) 35.4 ml/min; Potassium 3.5 mmol/L (3.5-5.1)
--- NOTE | 2023-09-11 08:20 | Hospitalist Progress Note ---
Date of Service September 11, 2023 Assessment & Plan (1) Acute renal failure: Plan: 72yo male with history of CAD, DM, HTN, AF, recent MRSA bacteremia and foot OM on antibiotics presenting from [facility] with metabolic encephalopathy/confusion as well as shaking, N/V. Patient found to have anion gapped metabolic acidosis, significant FLORECITA on CKD with elevated lactate initial hyperkalemia treated, Renal ultrasound negative for obstruction CT abdomen/pelvis, no obstructive uropathy Further review of the records shows that he was resumed on Entresto as well as taking Jardiance, lisinopril, Lasix, and metformin after discharge last admission His creatinine started rising on 08/22 and then on next check on 08/29 was significantly elevated prompting this admission He also had some N/V and poor p.o. intake the 2 days leading up to admission Cr worsened to 6.89 on 09/01 and he was oliguric. Acidosis prompted a bicarbonate drip with subsequent improvement of acid/base balance . He was transferred to the ICU for placement of dialysis catheter- on 09/01 after giving FFP, platelets for coagulopathy Underwent dialysis on 09/01 and again on 09/02 with significant improvement Appreciate Nephrology consult Continue to HOLD home amlodipine Entresto, Jardiance, metformin, and Lasix Creatinine improved. removed HD cathter on 09/05 with improvement in Cr and mentation (2) Anemia: Plan: Hemoglobin dropped acutely from 10.4 --> transfused 4 units PRBCs ( previously 2 u FFP and 4 U platelets also) Hemolysis labs remain negative (TBili,LDH) except UZAIR/Geovani is positive CT abdomen/pelvis 09/01 negative for retroperitoneal bleeding B12 folate and iron studies all ordered-folate is low-replace with 1 mg folic acid daily Likely also a component of anemia of chronic disease and renal failure Heme now more concerned about possible hemolytic anemia with +Geovani and started IVIG-received 2 days worth of dosing Hemoglobin trended back downward again on 09/09-6.7 but now with dark stools Patient decided conservative management foregoing endoscopy, however now with repeat hemoglobin dropping, he is open to having a scope. reconsulted GI attempting prep (3) Acute metabolic encephalopathy: Plan: Patient was completely nonverbal, significantly lethargic, not even able to respond to any commands for 3 to [address] head negative Likely secondary to taking long acting morphine and gabapentin as well as cefepime in setting of FLORECITA--> toxicities of these medications can cause confusion, tremors Also some component of uremia Now s/p dialysis to dialyze out some of these toxic metabolites, mentation is significantly improved-he is conversational, no further tremors, is able to make his needs known. Still napping frequently Discontinued morphine, cefepime, and gabapentin checked B1 level and started empiric thiamine Advance diet as tolerated today Patient refusing upper endoscopy. Resolved. (4) Thrombocytopenia: Plan: Platelets started dropping on outpatient labs on 08/22 and nadired at 19, with coffee-ground emesis and melena CT abdomen/pelvis without splenomegaly He does have a liver mass which is noted from previous and will need follow-up when more stable Appreciate hematology consultation-given anemia and thrombocytopenia, workup ordered for TTP/HUS and was negative for evidence of microangiopathic hemolytic anemia. Workup for DIC negative Most likely secondary to linezolid which was just discontinued on 08/28 and is well-known to cause thrombocytopenias Potentially PPI, cefepime could cause thrombocytopenia's as well-cefepime has also been discontinued Given GI bleeding, transfused platelets (3 units) and plts were up to 33, now back down again to 17 but no further bleeding noted Follow-up HIT antibodies but 4 T score is 3-he is getting heparin flushes only through his PICC line Continue holding home Plavix and Eliquis s/p IVIG which could help drug-induced thrombocytopenia as per hematology Elevated INR-could be Vit K deficiency vs low grade DIC? Gave Vit K 10mg and FFP on 09/01, INR now down to 1.3, will follow levels. Check fibrinogen if INR rises again and consider cryoprecipitate as per Heme (5) Chronic pain: Plan: Patient complaining of severe pain in his feet from PAD and lower back now that he is awake and the morphine has been dialyzed out of his system Start low-dose oxycodone 5 mg p.o. every 8 hours as needed and would not escalate beyond this for now Can also give Tylenol as needed (6) Hypoglycemia: Plan: Patient with hypoglycemia on arrival likely from poor renal clearance of insulin in setting of FLORECITA-now resolved on D5 and fluids which have since been stopped on dialysis Continue to hold Lantus and give Novolog SSI only as needed (7) MRSA bacteremia: Plan: Patient with OM of left foot and recent hospitalization for MRSA bacteremia and PNA. Had some gram negative rods on wound gram stain Continue Doxycycline 100mg po BID until 09/19/2023--> changed to IV given vomiting and inability to take po from encephalopathy Changed Cefepime to Cipro due to possible cefepime toxicity and cause of encephalopathy-renally dosed until 09/19/23 Continue wound care daily dressing changes and packing of the wound on the foot, consult Wound Care nurse No fevers or leukocytosis here to suggest recurrent infection f/u with Vascular was supposed to occur next week-will let vascular know that he is in the hospital if they want to see him in hospital on Tuesday Plan Hypomagnesemia-replace as needed to keep above 2.0, follow mag level in AM Hypocalcemia-may have been also contributing to tremors-replaced and now resolved after corrected for hypoalbuminemia CAD - chronic. stable. no CP or evidence of cardiac ischemia -Holding Plavix for bleeding and thrombocytopenia, can give carvedilol, and atorvastatin when he is able to take p.o. HTN - Chronic. -Continue Carvedilol once able to take po but hold Amlodipine Depression/Anxiety - chronic -Continue Sertraline 75mg po daily when he is able to take p.o. Atrial Fibrillation - paroxysmal, in NSR here -Continue Amiodarone 200mg po daily when able to take p.o. -He typically is on Eliquis but this is currently on hold due to thrombocytopenia and bleeding -continue tele monitoring , augmenting magnesium and follow trend Neuropathy-HOLD gabapentin due to FLORECITA and encephalopathy DVT proph-hold any anticoagulation for now due to severe thrombocytopenia and bleeding Admission and Anticipated Discharge Date Admission Date: August 31, 2023 Subjective pt is now agreeable for endoscopy, GI did re evaluate and will be attempted to prep to have colonscope. Pt has no other immediate complaints Physical Exam Physical Exam: awake and alert cardiac exam is regular, did have run of rate controlled afib, quickly returned to sinus lungs are clear abd is soft foot with dressing in place Results & Data Results & Data Vital Signs (Past 12 Hours) Vital Signs Temp Pulse Pulse Resp BP BP Pulse Ox 09/11/23 07:23 09/11/23 07:09 97.3 F L 87 18 177/84 H 96 09/11/23 06:00 88 09/11/23 02:32 97.3 F L 74 16 157/77 H 96 09/11/23 01:38 72 09/10/23 23:23 97.7 F 71 16 160/70 H 96 09/10/23 22:08 09/10/23 21:17 97.5 F L 78 20 158/84 H 95 O2 Del Method 09/11/23 07:23 Room Air 09/11/23 07:09 Room Air 09/11/23 06:00 09/11/23 02:32 Room Air 09/11/23 01:38 09/10/23 23:23 Room Air 09/10/23 22:08 Room Air 09/10/23 21:17 Laboratory Results reviewed cbc reviewed chemsitry PG Care Time/CCT Total # of Minutes Spent Total Time Spent with Patient: Total time spent is greater than 50% in coordination of care (as documented) at patient's floor/unit and/or counseling patient: Coding Level of Care Code 31172 SUB INP/OBS CARE 3/50MIN Diagnoses Acute renal failure N17.9 Anemia D64.9 Anemia type: unspecified type Acute metabolic encephalopathy G93.41 Thrombocytopenia D69.6 Chronic pain G89.29 Hypoglycemia E16.2 MRSA bacteremia R78.81; B95.62 (2) Anemia Anemia type: unspecified type Qualified Code(s): D64.9 - Anemia, unspecified
[2023-09-11] MEDS ORDERED: SIMETHICONE (ENDO) IR PRN (10:38)
--- NOTE | 2023-09-11 10:46 | Gastroenterology Progress Note ---
Date of Service September 11, 2023 Assessment & Plan (1) Anemia: Plan: Anemia requiring transfusion and apparent history of hematemesis and blood in stool from 10-14 days ago but not since. Various etiologies. Since he has had a prolonged hospital and rehab stay could be stress ulceration or other. Plan Rec: EGD and colonoscopy and if negative consider SB Video Capsule endoscopy. The EGD and colonoscopy procedures, alternatives including no work up or treatment, risks and benefits were discussed. Among the risks discussed included cardiorespiratory suppression, aspiration, bleeding, failure to diagnose cancer or other pathology and perforation requiring surgery. In addition we discussed that if specimens are obtained it may be deemed beneficial to send these for genetic/DNA testing. The patient claimed to understand all that was discussed, consented to all and all of his questions were answered. Admission and Anticipated Discharge Date Admission Date: August 31, 2023 [facility] Service was asked to see patient again for anemia. Please refer to original GI consult by Chanell RESENDIZ from 08/31/2023. At that time endoscopic work up was recommended and patient declined. He has since reconsidered and GI was asked to see again. The patient denies any overt GI blood loss for several weeks, however he had had to have another transfusion yesterday. Review of Systems Review of Systems: He denies any recent vomiting, abdominal pain, melena or hematochezia. Physical Exam Constitutional: WD WN WM NAD Afebrile P nl BP runs high Eyes: Sclera anicteric Conjunctiva pale Respiratory: Clear anteriorly Cardiovascular: RRR Gastrointestinal (Abdomen): Nl BS, soft, nontender Musculoskeletal: L foot wrapped in surgical bandage. Otherwise no CCE Results & Data Results & Data Vital Signs (Past 12 Hours) Vital Signs Temp Pulse Pulse Resp BP Pulse Ox O2 Del Method 09/11/23 07:23 Room Air 09/11/23 07:09 36.3 C L 87 18 177/84 H 96 Room Air 09/11/23 06:00 88 09/11/23 02:32 36.3 C L 74 16 157/77 H 96 Room Air 09/11/23 01:38 72 09/10/23 23:23 36.5 C 71 16 160/70 H 96 Room Air PG Care Time/CCT Total # of Minutes Spent Total Time Spent with Patient: Total time spent is greater than 50% in coordination of care (as documented) at patient's floor/unit and/or counseling patient: Coding Level of Care Code 94843 SUB INP/OBS CARE 03/24MIN Diagnoses Anemia D64.9 Anemia type: unspecified type (1) Anemia Anemia type: unspecified type Qualified Code(s): D64.9 - Anemia, unspecified
[2023-09-11] MEDS: LAVAGE SOLUTION 4000ML PO ONE (11:55)
[2023-09-11] MEDS: oxyCODONE HCL IR 5 MG TAB (IMMEDIATE RELEASE) PO PRN (15:07)
[2023-09-11] MEDS: MAGNESIUM SULFATE / D5W 1 GM/100 ML BAG IV ONE (18:18)
[2023-09-11] MEDS ORDERED: POLYETHYLENE (MIRALAX) 17 GM PACK PO STA ×3 (19:10→19:25)
[2023-09-11] MEDS: bisacodyL 5 MG TABEC PO ONE ×2 (20:09→23:18)
[2023-09-11] MEDS: POLYETHYLENE (MIRALAX) 17 GM PACK PO STA (20:09)
[2023-09-12 06:37] LABS: Hematocrit (blood only) 24.4 % (42.0-52.0); Hemoglobin 7.9 g/dl (14.0-18.0); Mean Corpuscular Hemoglobin 27.6 pg (25.0-34.0); Mean Corpuscular Hgb Conc 32.4 g/dL (32.0-36.0); Mean Corpuscular Volume 85.3 fL (80.0-100.0); Platelet Count 207 K/uL (130-400); RDW Coefficient of Variation 16.2 % (11.5-14.5); RDW Standard Deviation 50.9 fL (36.4-46.3); Red Blood Count 2.86 M/uL (4.70-6.10); White Blood Count 5.82 K/ul (4.8-10.8)
[2023-09-12 06:42] LABS: BUN Creatinine Ratio 16.5 (10-20); Calcium 7.5 mg/dl (8.6-10.3); Est GFR (African American) 44.1 ml/min; Est GFR (Non-African American) 38.1 ml/min; Magnesium 1.2 mg/dl (1.7-2.4); Potassium 3.5 mmol/L (3.5-5.1)
[2023-09-12] MEDS: MAGNESIUM SULFATE / D5W 1 GM/100 ML BAG IV SCH (07:27)
--- NOTE | 2023-09-12 07:38 | Hospitalist Progress Note ---
Date of Service September 12, 2023 Assessment & Plan (1) Acute renal failure: Plan: 72yo male with history of CAD, DM, HTN, AF, recent MRSA bacteremia and foot OM on antibiotics presenting from [facility] with metabolic encephalopathy/confusion as well as shaking, N/V. Patient found to have anion gapped metabolic acidosis, significant FLORECITA on CKD with elevated lactate initial hyperkalemia treated, Renal ultrasound negative for obstruction CT abdomen/pelvis, no obstructive uropathy Further review of the records shows that he was resumed on Entresto as well as taking Jardiance, lisinopril, Lasix, and metformin after discharge last admission His creatinine started rising on 08/22 and then on next check on 08/29 was significantly elevated prompting this admission He also had some N/V and poor p.o. intake the 2 days leading up to admission Cr worsened to 6.89 on 09/01 and he was oliguric. Acidosis prompted a bicarbonate drip with subsequent improvement of acid/base balance . He was transferred to the ICU for placement of dialysis catheter- on 09/01 after giving FFP, platelets for coagulopathy Underwent dialysis on 09/01 and again on 09/02 with significant improvement Appreciate Nephrology consult Continue to HOLD home amlodipine Entresto, Jardiance, metformin, and Lasix Creatinine improved. removed HD cathter on 09/05 with improvement in Cr and mentation (2) Anemia: Plan: Hemoglobin dropped acutely from 10.4 --> transfused 4 units PRBCs ( previously 2 u FFP and 4 U platelets also) Hemolysis labs remain negative (TBili,LDH) except UZAIR/Geovani is positive CT abdomen/pelvis 09/01 negative for retroperitoneal bleeding B12 folate and iron studies all ordered-folate is low-replace with 1 mg folic acid daily Likely also a component of anemia of chronic disease and renal failure Heme concerned about possible hemolytic anemia with +Geovani and started IVIG- received 2 days worth of dosing Hemoglobin trended back downward again on 09/09-6.7 but now with dark stools, augmented appropriately with transfusion Patient decided conservative management foregoing endoscopy, however now with repeat hemoglobin dropping, he is open to having a scope. tentative for 09/12/23 (3) Acute metabolic encephalopathy: Plan: Patient was completely nonverbal, significantly lethargic, not even able to respond to any commands for 3 to [address] head negative Likely secondary to taking long acting morphine and gabapentin as well as cefepime in setting of FLORECITA--> toxicities of these medications can cause confusion, tremors Also some component of uremia Now s/p dialysis to dialyze out some of these toxic metabolites, mentation is significantly improved-he is conversational, no further tremors, is able to make his needs known. Still napping frequently Discontinued morphine, cefepime, and gabapentin checked B1 level and started empiric thiamine Advance diet as tolerated today Patient refusing upper endoscopy. Resolved. (4) Thrombocytopenia: Plan: Platelets started dropping on outpatient labs on 08/22 and nadired at 19, with coffee-ground emesis and melena CT abdomen/pelvis without splenomegaly He does have a liver mass which is noted from previous and will need follow-up when more stable Appreciate hematology consultation-given anemia and thrombocytopenia, workup ordered for TTP/HUS and was negative for evidence of microangiopathic hemolytic anemia. Workup for DIC negative Most likely secondary to linezolid which was just discontinued on 08/28 and is well-known to cause thrombocytopenias Potentially PPI, cefepime could cause thrombocytopenia's as well-cefepime has also been discontinued Given GI bleeding, transfused platelets (3 units) and plts were up to 33, now back down again to 17 but no further bleeding noted Follow-up HIT antibodies but 4 T score is 3-he is getting heparin flushes only through his PICC line Continue holding home Plavix and Eliquis s/p IVIG which could help drug-induced thrombocytopenia as per hematology Elevated INR-could be Vit K deficiency vs low grade DIC? Gave Vit K 10mg and FFP on 09/01, INR now down to 1.3, will follow levels. Check fibrinogen if INR rises again and consider cryoprecipitate as per Heme (5) Chronic pain: Plan: Patient complaining of severe pain in his feet from PAD and lower back now that he is awake and the morphine has been dialyzed out of his system Start low-dose oxycodone 5 mg p.o. every 8 hours as needed and would not escalate beyond this for now Can also give Tylenol as needed (6) Hypoglycemia: Plan: Patient with hypoglycemia on arrival likely from poor renal clearance of insulin in setting of FLORECITA-now resolved on D5 and fluids which have since been stopped on dialysis Continue to hold Lantus and give Novolog SSI only as needed( has not needed much) (7) MRSA bacteremia: Plan: Patient with OM of left foot and recent hospitalization for MRSA bacteremia and PNA. Had some gram negative rods on wound gram stain Continue Doxycycline 100mg po BID until 09/19/2023--> changed to IV given vomiting and inability to take po from encephalopathy Changed Cefepime to Cipro due to possible cefepime toxicity and cause of encephalopathy-renally dosed until 09/19/23 Continue wound care daily dressing changes and packing of the wound on the foot, consult Wound Care nurse No fevers or leukocytosis here to suggest recurrent infection f/u with Vascular was supposed to occur next week- Plan Hypomagnesemia-replace as needed to keep above 2.0, follow mag level in AM Hypocalcemia-may have been also contributing to tremors-replaced and now resolved after corrected for hypoalbuminemia CAD - chronic. stable. no CP or evidence of cardiac ischemia -Holding Plavix for bleeding and thrombocytopenia, can give carvedilol, and atorvastatin when he is able to take p.o. HTN - Chronic. -Continue Carvedilol once able to take po but hold Amlodipine Depression/Anxiety - chronic -Continue Sertraline 75mg po daily when he is able to take p.o. Atrial Fibrillation - paroxysmal, in NSR here -Continue Amiodarone 200mg po daily when able to take p.o. -He typically is on Eliquis but this is currently on hold due to thrombocytopenia and bleeding -continue tele monitoring , augmenting magnesium and follow trend Neuropathy-HOLD gabapentin due to FLORECITA and encephalopathy DVT proph-hold any anticoagulation for now due to severe thrombocytopenia and bleeding Admission and Anticipated Discharge Date Admission Date: August 31, 2023 Subjective pt is now agreeable for endoscopy, GI did re evaluate and will be attempted to prep for endoscopy for 09/11 I also spoke to peer to peer for review of fitness to return to intermediate care Physical Exam Physical Exam: awake and alert cardiac exam is regular, did have run of rate controlled afib, quickly returned to sinus lungs are clear abd is soft, non tender foot with dressing in place Results & Data Results & Data Vital Signs (Past 12 Hours) Vital Signs Temp Pulse Pulse Resp BP Pulse Ox O2 Del Method 09/12/23 02:53 97.5 F L 71 16 168/73 H 92 Room Air 09/11/23 23:14 60 09/11/23 23:05 97.5 F L 92 H 16 152/83 H 94 Room Air Laboratory Results reviewed cbc, hgb is stable at this time reviewed chemistry PG Care Time/CCT Total # of Minutes Spent Total Time Spent with Patient: Total time spent is greater than 50% in coordination of care (as documented) at patient's floor/unit and/or counseling patient: Coding Level of Care Code 45721 SUB INP/OBS CARE 3/50MIN Diagnoses Acute renal failure N17.9 Anemia D64.9 Anemia type: unspecified type Acute metabolic encephalopathy G93.41 Thrombocytopenia D69.6 Chronic pain G89.29 Hypoglycemia E16.2 MRSA bacteremia R78.81; B95.62 (2) Anemia Anemia type: unspecified type Qualified Code(s): D64.9 - Anemia, unspecified
--- NOTE | 2023-09-12 09:44 | History & Physical Bridge Note ---
Date of Service September 12, 2023 History & Physical Bridge Note I have examined the patient, reviewed the History & Physical and in the interval since the performance of the History & Physical I have noted the following changes of clinical significance: no changes noted. Patient had some issues with getting his prep down but has been finishing it this morning. no nausea, vomiting, heartburn, abdominal pain. Nursing tells me that stools are clear, quiroga. no further black stools. no brbpr. he denies sob/chest pain. 09/12/23 hgb 7.9 -will plan for EGD/Colonoscopy for today to further evaluate.
--- NOTE | 2023-09-12 16:10 | Anesthesiology Consultation ---
Date of Service September 12, 2023 Assessment & Plan Chart Review Chart Review: Acceptable Risk for Surgery Consults Requested none ASA ASA4 Proposed Anesthesia Anesthesia Type: MAC Risk / Benefits Reviewed With: PT / POA / Parent / Guardian, Accepts Plan and Informed Consent Obtained History Surgery Operation Date: 09/12/23 16:45 Proposed Procedures p Colonoscopy EGD Ameena Lindquist MD Height/Weight Height: 5 ft 11 in Weight: 83.5 kg Allergies Allergy/AdvReac Type Severity Reaction Status Date / Time cat dander Allergy Intermediate CONGESTION Verified 08/05/23 16:21 Medications Home Medications Medication Instructions Recorded Confirmed Last Taken Heparin Porcine Lock Flush 5 ml IV .Q SHIFT 08/05/23 08/31/23 08/30/23 acetaminophen 650 mg 650 mg PO TID 08/05/23 08/31/23 08/30/23 16:30 tablet,extended release amiodarone 200 mg tablet 200 mg PO DAILY 08/05/23 08/31/23 08/30/23 amlodipine 2.5 mg tablet 2.5 mg PO HS 08/05/23 08/31/23 08/29/23 atorvastatin 80 mg tablet (Lipitor) 80 mg PO HS 08/05/23 08/31/23 08/29/23 carvedilol 3.125 mg tablet 3.125 mg PO BID 08/05/23 08/31/23 08/30/23 16:30 clopidogrel 75 mg tablet 75 mg PO QAM 08/05/23 08/31/23 08/30/23 ferrous sulfate 325 mg (65 mg 325 mg PO [id number] 08/05/23 08/31/23 08/29/23 iron) tablet gabapentin 300 mg capsule 300 mg PO AMHS 08/05/23 08/31/23 08/30/23 08:30 insulin glargine 100 unit/mL 10 unit subcut DAILY 08/05/23 08/31/23 08/04/23 subcutaneous solution (Lantus U-100 Insulin) insulin lispro 100 unit/mL 1 sliding scale dose subcut 08/05/23 08/31/23 Unknown subcutaneous cartridge (Humalog USEASDIRECTD U-100 Insulin) morphine 15 mg tablet,extended 15 mg PO Q12 08/05/23 08/31/23 08/30/23 08:30 release oxycodone 5 mg tablet 5 mg PO Q4 PRN mod or severe pain 08/05/23 08/31/23 08/30/23 16:30 sertraline 25 mg tablet 75 mg PO DAILY 08/05/23 08/31/23 08/30/23 sodium chloride 1,000 mg soluble 1,000 mg PO AMHS 08/05/23 08/31/23 08/30/23 08:30 tablet Med Pass 120 ml PO BID 08/31/23 08/31/23 Unknown Saccharomyces boulardii 250 mg 250 mg PO TID 08/31/23 08/31/23 08/30/23 14:30 capsule (Florastor) cefepime 2 gram solution for 2 g IV DAILY 08/31/23 08/31/23 08/29/23 injection doxycycline hyclate 100 mg capsule 100 mg PO Q12 08/31/23 08/31/23 08/30/23 08:30 loperamide 2 mg tablet (Imodium 2 mg PO Q4H PRN Diarrhea 08/31/23 08/31/23 Unknown A-D) omeprazole 20 mg capsule,delayed 20 mg PO AMHS 08/31/23 08/31/23 08/30/23 08:30 release ondansetron 4 mg disintegrating 4 mg PO Q6H PRN Nausea And Vomiting 08/31/23 08/31/23 08/30/23 07:30 tablet promethazine 25 mg/mL injection 25 mg IM Q6H PRN n/v if 08/31/23 08/31/23 Unknown solution ondansetron ineffective protein supplement 1 ea PO BID 08/31/23 08/31/23 08/30/23 sodium chloride 0.9 % (flush) 10 ml IV QS 08/31/23 08/31/23 08/30/23 apixaban 5 mg tablet (Eliquis) 5 mg PO BID 09/01/23 09/01/23 Unknown empagliflozin 25 mg tablet 25 mg PO DAILY 09/01/23 09/01/23 Unknown (Jardiance) furosemide 20 mg tablet 20 mg PO DAILY 09/01/23 09/01/23 Unknown metformin 1,000 mg tablet 1,000 mg PO BID 09/01/23 09/01/23 Unknown sacubitril 24 mg-valsartan 26 mg 1 tab PO BID 09/01/23 09/01/23 Unknown tablet (Entresto) Active Medications Generic Name Dose Route Start Last Admin Trade Name Freq PRN Reason Stop Dose Admin Acetaminophen 650 mg 09/05/23 21:00 09/12/23 12:33 Acetaminophen 325 Mg Tab PO 10/05/23 20:59 Not Given QID CARLTON Amiodarone HCl 200 mg 08/31/23 09:00 09/12/23 08:46 Amiodarone 200 Mg Tab PO 09/30/23 08:59 200 mg DAILY CARLTON Administration Atorvastatin Calcium 80 mg 08/31/23 21:00 09/11/23 20:33 Atorvastatin 40 Mg Tab PO 09/30/23 20:59 80 mg HS CARLTON Administration Carvedilol 3.125 mg 08/31/23 09:00 09/12/23 08:46 Carvedilol 3.125 Mg Tab PO 09/30/23 08:59 3.125 mg BID CARLTON Administration Ciprofloxacin 500 mg 09/09/23 09:00 09/12/23 08:45 Ciprofloxacin 500 Mg Tab PO 09/19/23 23:59 500 mg BID CARLTON Administration Dextrose 25 - 50 ml 08/31/23 03:15 08/31/23 04:06 Dextrose 50% 50 Ml Syringe IV 09/30/23 03:14 25 ml UD PRN Administration Hypoglycemia Protocol Protocol Doxycycline Hyclate 100 mg 09/08/23 21:00 09/12/23 08:45 Doxycycline Hyclate 100 Mg Cap PO 09/19/23 23:59 100 mg BID CARLTON Administration Folic Acid 1 mg 09/05/23 09:00 09/12/23 08:45 Folic Acid 1 Mg Tab PO 10/05/23 08:59 1 mg QAM CARLTON Administration Insulin Aspart 0 units 09/04/23 11:30 09/12/23 12:31 Insulin Aspart Per Unit Charge SC 10/04/23 05:59 Not Given ACHS CARLTON Ondansetron HCl 4 mg 08/31/23 03:15 09/12/23 07:29 Ondansetron Inj 2 Mg/Ml 2 Ml Vial IV 09/30/23 03:14 4 mg Q6H PRN Administration Nausea And Vomiting Oxycodone HCl 5 mg 09/06/23 08:56 09/11/23 15:07 Oxycodone Hcl Ir 5 Mg Tab (Immediate Release) PO 09/20/23 08:55 5 mg Q6H PRN Administration Moderate Pain (Scale 4, 5, 6) Oxycodone HCl 10 mg 09/06/23 08:56 09/12/23 08:59 Oxycodone Hcl Ir 5 Mg Tab (Immediate Release) PO 09/20/23 08:55 10 mg Q6H PRN Administration Severe Pain (Scale 7, 8, 9,10) Pantoprazole Sodium 40 mg 09/08/23 21:00 09/12/23 07:29 Pantoprazole 40 Mg Tab PO 10/08/23 20:59 40 mg BID CARLTON Administration Sertraline HCl 75 mg 08/31/23 09:00 09/12/23 08:45 Sertraline Hcl 50 Mg Tablet PO 09/30/23 08:59 75 mg DAILY CARLTON Administration Thiamine HCl 200 mg 09/09/23 09:00 09/12/23 08:46 Thiamine Hcl 100 Mg Tab PO 10/09/23 08:59 200 mg DAILY CARLTON Administration NPO Date Last Intake of Fluids: 09/12/23 Time Last Intake of Fluids: 00:00 Date Last Intake of Solids: 09/11/23 Time Last Intake of Solids: 00:00 Past Medical History Medical History History of atrial fibrillation CAD (coronary artery disease) s/p CABG x 2 vessel June 2021 Acute HFrEF (heart failure with reduced ejection fraction) Follows with [facility] EF 50-55% per 05/2022 ECHO Cardiomyopathy Dyslipidemia Tobacco abuse smoke-12/day Atherosclerosis of artery of left lower extremity s/p left leg angiogram procedure with [employer] of proximal vein bypass 05/27/23 s/p left leg femoral artery to posterior tibial artery reverse saphenous vein [place] [facility] [place] s/p left SFA and popliteal stents History of anemia History of anxiety History of alcohol abuse started 1965, quit 1999 Hx of drug abuse started 1965, quit 1999 "used every drug known to man">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, stayed in for 13 years IV drug abuse hx-quit in 1981 History of hepatitis B hx IV drug use Hepatitis C virus has had since the late 1979's>no tx, "never had any trouble with it" Heart failure with mid-range ejection fraction Follows with [facility] EF 50-55% per 05/2022 ECHO Type 2 diabetes mellitus HTN (hypertension) Exercise / Class Metabolic Activity III < 4 Walking/Shop/Light housework Past Surgical History Surgical History History of amputation of great toe S/P CABG x 2 ~2021, went to ER w/"anxiety," found to be in congestive heart failure, had more cardiac testing, sent for f/u w/s cardio surgeon, done [facility]; f/u dr. mckeon Hx of cardiac catheterization 06/2021 [facility] History of open reduction and internal fixation (ORIF) procedure rt elbow and lt wrist>hardware intact Hx of colonoscopy History of left knee surgery 1988-tibial plateau reconstruction History of eye surgery retina History of cataract extraction rt/lt Past Anesthesia History No Hx of Anesthesia Complications and No Family Hx of Anesthesia Complications Social History Smoking Status: Former smoker tobacco type: cigarettes Smoking cigarettes per day: 6 Do You Dip or Chew Tobacco: No Hx Alcohol Use: Yes alcohol intake frequency: other Alcohol Intake Frequency Comment: no recent ETOH use in months Hx Substance Use: Yes substance use type: unknown Substance Use Type Other:: IV Drugs. Last Used Substance: Unknown Last Used Substance Other:: quit 1999-stated "used every drug known to man" Physical Exam Vital Signs Last Vital Signs Temp 36.5 C 09/12/23 16:08 Pulse 93 H 09/12/23 16:08 Resp 16 09/12/23 16:08 BP 158/90 H 09/12/23 16:08 Pulse Ox 96 09/12/23 16:08 O2 Del Method Room Air 09/12/23 16:08 O2 Flow Rate 1.0 09/04/23 12:05 ENMT Mouth: + dentition abnormality (2 bottom remain); no TMJ abnormality Thyromental Distance: > or= 3.5 Finger Breadths Mallampati Class: II Neck normal visual inspection and trachea midline; neck extension not limited Respiratory normal respiratory effort Auscultation: lungs clear to auscultation bilaterally Cardiovascular Rate/Rhythm: regular rate and regular rhythm Heart Sounds: no murmur Musculoskeletal Spine: normal cervical ROM Extremities: full ROM of extremities Neurologic moves all extremities Psychiatric Orientation: alert and oriented x 3 Testing Laboratory Results 09/12/23 06:02 09/12/23 06:02 PT 12.6 Seconds (9.0-12.0) H 09/05/23 06:32 INR 1.2 (0.9-1.1) H 09/05/23 06:32 APTT 32 Seconds (21-31) H 09/01/23 10:54 Urine Color Yellow 08/31/23 00:05 Urine Appearance Cloudy (Clear) A 08/31/23 00:05 Urine pH 5.0 (4.5-7.5) 08/31/23 00:05 Ur Specific [place] 1.026 (1.000-1.030) 08/31/23 00:05 Urine Protein 2+ (Negative) H 08/31/23 00:05 Urine Glucose (UA) Negative (Negative) 08/31/23 00:05 Urine Ketones 1+ (Negative) H 08/31/23 00:05 Urine Nitrite Negative (Negative) 08/31/23 00:05 Ur Leukocyte Esterase Negative (Negative) 08/31/23 00:05 Urine WBC (Auto) 0-5 /hpf (0-5) 08/31/23 00:05 Urine RBC (Auto) 3-5 /hpf (0-2) H 08/31/23 00:05 U Hyaline Cast (Auto) 3-5 /lpf (0-2) H 08/31/23 00:05 U Epithel Cells (Auto) 0-2 /hpf (0-2) 08/31/23 00:05 Urine Bacteria (Auto) None Seen (None Seen) 08/31/23 00:05 Blood Type A Positive 09/10/23 15:00 Antibody Screen POSITIVE A 09/10/23 15:00 09/12/23 09/12/23 11:44 07:25 POC Glucose 119 H 132 H
--- NOTE | 2023-09-12 16:42 | GI REPORT ---
[facility] Patient: ELLEN PELAEZ : 1950 Sex at : Male Age: 72 Years Procedure: Colonoscopy Date: 09/12/2023 Attending Physician: Kenrick Lindquist MD Referring MD: Alberto Morris; eNgro García Indications: - Anemia Medications: - Monitored Anesthesia Care - See the Anesthesia note for documentation of the administered medications Complications: - No immediate complications. Estimated Blood Loss: - Estimated blood loss was minimal. Procedure: - The adult colonoscope was introduced through the anus and advanced to the cecum, identified by appendiceal orifice and ileocecal valve. - The colonoscopy was performed without difficulty. - The quality of the bowel preparation was adequate. Findings: - A few small-mouthed diverticula were found in the sigmoid colon and descending colon. - A small polyp was found in the cecum. The polyp was semi-sessile. The polyp was removed with a cold snare. Resection and retrieval were complete. histology - Otherwise exam only remarkable for Grade I internal hemorrhoids seen on retroflexion Impression: - Otherwise exam only remarkable for Grade I internal hemorrhoids seen on retroflexion - Diverticulosis in the sigmoid colon and in the descending colon. - One polyp in the cecum, removed with a cold snare. Resected and retrieved. Recommendation: - Await pathology results. 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 Procedure Code(s): - 90868, Colonoscopy, flexible; with removal of tumor(s), polyp(s), or other lesion(s) by snare technique Diagnosis Code(s): - D12.0, Benign neoplasm of cecum - K57.30, Diverticulosis of large intestine without perforation or abscess without bleeding CPT(R) - 2023 copyright [employer]. All Rights Reserved. The CPT codes, CCI edits and ICD codes generated are intended as suggestions and were generated based on input data. These codes are preliminary and upon auditing coder review may be revised to meet current compliance and payer requirements. The provider is responsible for the final determination of appropriate codes, and modifiers. Kenrick Lindquist MD This document has been electronically signed. Note Initiated:09/12/2023 Note Completed:09/12/2023 4:41 PM \\[email or web address]\[email or web address]\Provation\Results\[email or web address]\[id number].[email or web address]
--- NOTE | 2023-09-12 16:49 | Anesthesiology Progress Note ---
Date of Service September 12, 2023 Anesthesia Post Procedure Vital Signs Vital Signs: Temp Pulse Pulse Resp BP Pulse Ox O2 Del Method 09/12/23 16:36 36.5 C 70 16 128/70 100 Room Air 09/12/23 16:08 36.5 C 93 H 16 158/90 H 96 Room Air 09/12/23 14:00 70 09/12/23 11:45 36.7 C 71 19 166/83 H 96 Room Air 09/12/23 11:00 73 09/12/23 07:25 36.5 C 99 H 19 184/73 H 94 Room Air 09/12/23 02:53 36.4 C L 71 16 168/73 H 92 Room Air 09/11/23 23:14 60 09/11/23 23:05 36.4 C L 92 H 16 152/83 H 94 Room Air 09/11/23 19:34 36.4 C L 83 16 172/86 H 95 Room Air Pain Intensity Back: Pain Intensity: 8 Medial Buttock: Pain Intensity: 7 Transfer of Care Handoff Completed per policy Notes Mental Status: alert / awake / arousable Patient Amnestic to Procedure: Yes Nausea / Vomiting: adequately controlled Pain: adequately controlled Airway Patency, RR, SpO2: stable & adequate BP & HR: stable & adequate Hydration State: stable & adequate Anesthetic Complications: no major complications apparent and Pt Satisfied with anesthetic care
--- NOTE | 2023-09-12 16:50 | GI REPORT ---
[facility] Patient: ELLEN PELAEZ : 1950 Sex at : Male Age: 72 Years Procedure: Upper GI endoscopy Date: 09/12/2023 Attending Physician: Kenrick Lindquist MD Referring MD: Alberto Morris; Negro García Indications: - Anemia Medications: - Monitored Anesthesia Care - Propofol per Anesthesia - See the Anesthesia note for documentation of the administered medications Complications: - No immediate complications. Estimated Blood Loss: - Estimated blood loss was minimal. Procedure: - ASA Grade Assessment: IV - A patient with severe systemic disease that is a constant threat to life. - The egd scope was introduced through the mouth and advanced to the second part of the duodenum. - The upper GI endoscopy was accomplished without difficulty. - The patient tolerated the procedure well. Findings: - The examined esophagus was normal. - Diffuse moderately erythematous mucosa without bleeding was found in the gastric antrum and in the gastric body. Biopsies were taken with a cold forceps for histology. Biopsies were taken with a cold forceps for Helicobacter pylori testing. - The examined duodenum was normal. Impression: - Normal esophagus. - Erythematous mucosa in the gastric antrum and gastric body. Biopsied. - Normal examined duodenum. Recommendation: - Await pathology results. 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 Procedure Code(s): - 98124, Esophagogastroduodenoscopy, flexible, transoral; with biopsy, single or multiple Diagnosis Code(s): - K31.89, Other diseases of stomach and duodenum CPT(R) - 2023 copyright [employer]. All Rights Reserved. The CPT codes, CCI edits and ICD codes generated are intended as suggestions and were generated based on input data. These codes are preliminary and upon anesthesiology faculty review may be revised to meet current compliance and payer requirements. The provider is responsible for the final determination of appropriate codes, and modifiers. Kenrick Lindquist MD This document has been electronically signed. Note Initiated:09/12/2023 Note Completed:09/12/2023 4:49 PM \\[email or web address]\[email or web address]\Provation\Results\[email or web address]\[id number].pdf
--- NOTE | 2023-09-12 16:52 | Communication Note ---
Date of Service: September 12, 2023 See Provation note for complete report. Summary: Colonoscopy: Small cecal polyp removed Left sided diverticulosis Grade I internal hemorrhoids EGD: Moderate gastritis body and antrum - biopsies taken. 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 Pending pathology results may need SB Video Capsule endoscopy.
[2023-09-12] MEDS: PROPOFOL IV EMULSION 10 MG/ML 20 ML VIAL IV ONE (18:14)
[2023-09-12] MEDS: LIDOCAINE 2% 2 ML VIAL/AMP(20MG/ML) INFIL ONE (18:15)
[2023-09-13 06:35] LABS: Hematocrit (blood only) 24.4 % (42.0-52.0); Mean Corpuscular Hemoglobin 28.1 pg (25.0-34.0); Mean Corpuscular Hgb Conc 32.8 g/dL (32.0-36.0); Mean Corpuscular Volume 85.6 fL (80.0-100.0); Mean Platelet Volume 10.9 fL (9.4-12.4); Platelet Count 218 K/uL (130-400); RDW Coefficient of Variation 16.5 % (11.5-14.5); RDW Standard Deviation 51.8 fL (36.4-46.3); Red Blood Count 2.85 M/uL (4.70-6.10); White Blood Count 5.46 K/ul (4.8-10.8)
[2023-09-13 07:05] LABS: BUN Creatinine Ratio 14.9 (10-20); Calcium 7.5 mg/dl (8.6-10.3); Creatinine Clr Calc Pharmacy 44.8 ml/min; Est GFR (African American) 49.1 ml/min; Est GFR (Non-African American) 42.4 ml/min; Potassium 3.5 mmol/L (3.5-5.1)
--- NOTE | 2023-09-13 10:00 | Gastroenterology Progress Note ---
<Statement entered by Kenrick Lindquist MD - 09/13/23 14:57> Patient seen and examined. Case discussed with Chanell RESENDIZ. Patient stable from GI bleed standpoint. Hgb stable. Should have OP SB Video Capsule endoscopy. Discussed with patient. MRI pending for ill defined liver hypodensity. Date of Service September 13, 2023 Assessment & Plan (1) Anemia: Plan: No cause for anemia seen on either Colonoscopy or EGD. no current GI concerns. - continue to follow hgb/hct, transfuse as needed. - continue with protonix 40mg bid. - will have patient set up for Capsule endoscopy as an outpatient. I will have our office work on getting this set up. Admission and Anticipated Discharge Date Admission Date: August 31, 2023 Subjective Patient resting in bed comfortably. no further dark stools per patient. he denies any nausea, vomiting, heartburn, abdominal pain, or brbpr. 09/12 hgb 8 (previously 7.9). 09/11 Colonoscopy: Small cecal polyp removed Left sided diverticulosis Grade I internal hemorrhoids 09/11 EGD: Moderate gastritis body and antrum - biopsies taken. Review of Systems Review of Systems: All systems reviewed & are unremarkable except as noted in HPI & below Physical Exam Constitutional: WD/WN, vitals as above Respiratory: normal respiratory effort, lungs clear to auscultation Cardiovascular: RRR, no murmur, no edema Gastrointestinal (Abdomen): normal bowel sounds, soft, nontender, no hepatosplenomegaly Psychiatric: Orientation: alert and oriented x 3 Results & Data Results & Data Vital Signs (Past 12 Hours) Vital Signs Temp Pulse Pulse Resp BP Pulse Ox O2 Del Method 09/13/23 08:15 69 09/13/23 07:24 98.1 F 89 17 169/83 H 97 Room Air 09/13/23 02:36 97.5 F L 79 16 173/86 H 96 Room Air 09/13/23 00:00 79 09/12/23 23:10 97.7 F 69 18 162/78 H 92 Room Air Coding Level of Care Code 54678 SUB INP/OBS CARE 2/35MIN Diagnoses Anemia D64.9 Anemia type: unspecified type (1) Anemia Anemia type: unspecified type Qualified Code(s): D64.9 - Anemia, unspecified
--- NOTE | 2023-09-13 14:19 | Hospitalist Progress Note ---
Date of Service September 13, 2023 Assessment & Plan (1) Acute renal failure: Plan: 72yo male with history of CAD, DM, HTN, AF, recent MRSA bacteremia and foot OM on antibiotics presenting from [facility] with metabolic encephalopathy/confusion as well as shaking, N/V. Patient found to have anion gapped metabolic acidosis, significant FLORECITA on CKD with elevated lactate initial hyperkalemia treated, Renal ultrasound negative for obstruction CT abdomen/pelvis, no obstructive uropathy, liver mass noted previously with request for follow up MRI, ordered 09/13 Further review of the records shows that he was resumed on Entresto as well as taking Jardiance, lisinopril, Lasix, and metformin after discharge last admission His creatinine started rising on 08/22 and He also had some N/V and poor p.o. intake the 2 days leading up to admission Cr PEAKED and pre had urgent temp dialysis cath placed, Underwent dialysis on 09/01 and again on 09/02 with significant improvement, removed HD catheter on 09/05 with improvement in Cr and mentation Appreciate Nephrology consult Continue to HOLD home amlodipine Entresto, Jardiance, metformin, and Lasix (2) Anemia: Plan: Hemoglobin dropped acutely from 10.4 --> transfused 4 units PRBCs ( previously 2 u FFP and 4 U platelets also) Hemolysis labs remain negative (TBili,LDH) except UZAIR/Geovani is positive CT abdomen/pelvis 09/01 negative for retroperitoneal bleeding B12 folate and iron studies all ordered-folate is low-replace with 1 mg folic acid daily Likely also a component of anemia of chronic disease and renal failure Heme concerned about possible hemolytic anemia with +Geovani and started IVIG- received 2 days worth of dosing endoscopy has 09/11 Colonoscopy: Small cecal polyp removed Left sided diverticulosis Grade I internal hemorrhoids 09/11 EGD: Moderate gastritis body and antrum - biopsies taken. (3) Acute metabolic encephalopathy: Plan: Patient was completely nonverbal, significantly lethargic, not even able to respond to any commands for 3 to [address] head negative Likely secondary to toxic encephalopathy, taking long acting morphine and gabapentin as well as cefepime in setting of FLORECITA--> toxicities, Also some component of uremia checked B1 level and started empiric thiamine Resolved. (4) Thrombocytopenia: Plan: Platelets started dropping on outpatient labs on 08/22 and nadired at 19, with coffee-ground emesis and melena CT abdomen/pelvis without splenomegaly He does have a liver mass which is noted from previous ordered MRI 09/13 Appreciate hematology consultation-given anemia and thrombocytopenia, workup ordered for TTP/HUS and was negative for evidence of microangiopathic hemolytic anemia. Workup for DIC negative felt secondary to linezolid which was just discontinued on 08/28 and is well- known to cause thrombocytopenias Potentially PPI, cefepime could cause thrombocytopenia's as well-cefepime has also been discontinued Given GI bleeding, transfused platelets (3 units) Follow-up HIT antibodies but 4 T score is 3-he is getting heparin flushes only through his PICC line Continue holding home Plavix and Eliquis s/p IVIG which could help drug-induced thrombocytopenia as per hematology Elevated INR-could be Vit K deficiency s/pn Vit K 10mg and FFP on 09/01, INR now down (5) Chronic pain: Plan: Patient complaining of severe pain in his feet from PAD and lower back now that he is awake and the morphine has been dialyzed out of his system Start low-dose oxycodone 5 mg p.o. every 8 hours as needed and would not escalate beyond this for now Can also give Tylenol as needed (6) Hypoglycemia: Plan: Patient with hypoglycemia on arrival likely from poor renal clearance of insulin in setting of FLORECITA-now resolved on D5 and fluids which have since been stopped on dialysis Continue to hold Lantus and give Novolog SSI only as needed( has not needed much) (7) MRSA bacteremia: Plan: Patient with OM of left foot and recent hospitalization for MRSA bacteremia and PNA. Had some gram negative rods on wound gram stain Continue Doxycycline 100mg po BID until 09/19/2023--> changed to IV given vomiting and inability to take po from encephalopathy Changed Cefepime to Cipro due to possible cefepime toxicity and cause of encephalopathy-renally dosed until 09/19/23 liver mass noted previously that may have been abscess will be re eval on 09/13, continues on antibiotics Plan Hypomagnesemia-replete Hypocalcemia-resolved after corrected for hypoalbuminemia CAD - chronic. stable. no CP or evidence of cardiac ischemia -Holding Plavix for bleeding and thrombocytopenia, can give carvedilol, and atorvastatin HTN - Chronic. -Continue Carvedilol once able to take po but hold Amlodipine Depression/Anxiety - chronic -Continue Sertraline 75mg po daily Atrial Fibrillation - paroxysmal, in NSR here -Continue Amiodarone 200mg po daily -He typically is on Eliquis will be held as need capsule enteroscopy for further workup of anemia Neuropathy-HOLD gabapentin due to FLORECITA and encephalopathy DVT proph-hold any anticoagulation for now due to severe thrombocytopenia and bleeding Admission and Anticipated Discharge Date Admission Date: August 31, 2023 Subjective Patient resting in bed comfortably. Pt is fatigued no further dark stools per patient. 09/11 Colonoscopy: Small cecal polyp removed Left sided diverticulosis Grade I internal hemorrhoids 09/11 EGD: Moderate gastritis body and antrum - biopsies taken. Physical Exam Physical Exam: awake and alert cardiac exam is regular, lungs are clear abd is soft, non tender foot with dressing in place Results & Data Results & Data Vital Signs (Past 12 Hours) Vital Signs Temp Pulse Pulse Resp BP Pulse Ox O2 Del Method 09/13/23 10:50 97.9 F 69 19 172/80 H 96 Room Air 09/13/23 08:15 69 09/13/23 07:24 98.1 F 89 17 169/83 H 97 Room Air 09/13/23 02:36 97.5 F L 79 16 173/86 H 96 Room Air Laboratory Results previous imaging had suggested an undefined mass vs abscess in liver, has been treated with antibiotics in the interim, will repeat imaging after hydration to provide good protection to renal function as contrast is required but its mri contrast PG Care Time/CCT Total # of Minutes Spent Total Time Spent with Patient: Total time spent is greater than 50% in coordination of care (as documented) at patient's floor/unit and/or counseling patient: Coding Level of Care Code 14308 SUB INP/OBS CARE 3/50MIN Diagnoses Acute renal failure N17.9 Anemia D64.9 Anemia type: unspecified type Acute metabolic encephalopathy G93.41 Thrombocytopenia D69.6 Chronic pain G89.29 Hypoglycemia E16.2 MRSA bacteremia R78.81; B95.62 (2) Anemia Anemia type: unspecified type Qualified Code(s): D64.9 - Anemia, unspecified
[2023-09-13] MEDS: SODIUM CHLORIDE 0.9% 1,000 ML IV SCH (15:07)
[2023-09-13] MEDS: hydrALAZINE HCL 20 MG/ML VIAL IV PRN (21:14)
[2023-09-14] MEDS: GADOXETATE DISODIUM IV ONE (01:19)
--- NOTE | 2023-09-14 04:42 | Magnetic Resonance Report ---
Exam(s): MRI ABDOMEN W/WO Contrast IV Amt: 10cc eovist EXAM: MR Abdomen Without and With Intravenous Contrast CLINICAL HISTORY: Reason for exam: eval liver changes for etiology. TECHNIQUE: Multiplanar magnetic resonance images of the abdomen without and with intravenous contrast. CONTRAST: Patient received 10cc eovist of IV contrast COMPARISON: No relevant prior studies available. FINDINGS: Limitations: Some sequences are limited due to motion artifact. Lung bases: Unremarkable. No mass. No consolidation. Pleural space: Large right and small left pleural effusion. Liver: 4.5 cm mixed signal intensity mass demonstrated segment 8 of the liver. Gallbladder and bile ducts: Unremarkable. No calcified stones. No ductal dilation. Pancreas: Unremarkable. No ductal dilation. No mass. Spleen: Wedge-shaped 4.9 cm region of increased T2 signal intensity demonstrated posterior aspect of the spleen. Adrenals: Unremarkable. No mass. Kidneys and ureters: A few well-circumscribed lesions are demonstrated within the kidneys some with increased T1 and T2 signal intensity presumably complex/high proteinaceous cysts. No hydronephrosis. Stomach and bowel: Unremarkable. No obstruction. Intraperitoneal space: Unremarkable. No significant fluid collection. Soft tissues: Unremarkable. Vasculature: Unremarkable. No abdominal aortic aneurysm. Lymph nodes: Unremarkable. No enlarged lymph nodes. IMPRESSION: Indeterminate lesion demonstrated within the liver definitive assessment would require histologic diagnosis. A few lesions within the kidneys presumably hemorrhagic or high proteinaceous cysts. Indeterminate wedge- shaped lesion demonstrated within the spleen seen on T2 sequence only with out findings on the postcontrast study to suggest splenic infarction, it is indeterminate. Electronically signed by: Roshan Bledsoe MD 09/14/23 04:41 AM
[2023-09-14 07:00] LABS: Hematocrit (blood only) 25.1 % (42.0-52.0); Mean Corpuscular Hemoglobin 27.6 pg (25.0-34.0); Mean Corpuscular Hgb Conc 31.9 g/dL (32.0-36.0); Mean Corpuscular Volume 86.6 fL (80.0-100.0); Mean Platelet Volume 11.1 fL (9.4-12.4); Platelet Count 182 K/uL (130-400); RDW Coefficient of Variation 16.6 % (11.5-14.5); RDW Standard Deviation 52.9 fL (36.4-46.3); White Blood Count 4.99 K/ul (4.8-10.8)
[2023-09-14 07:15] LABS: BUN Creatinine Ratio 16.6 (10-20); Calcium 7.3 mg/dl (8.6-10.3); Creatinine Clr Calc Pharmacy 47.8 ml/min; Est GFR (African American) 53.1 ml/min; Est GFR (Non-African American) 45.8 ml/min; Potassium 3.4 mmol/L (3.5-5.1)
[2023-09-14] MEDS: POTASSIUM CHLORIDE CRTAB 20 MEQ TABCR PO STA (08:46)
--- NOTE | 2023-09-14 09:50 | Gastroenterology Progress Note ---
<Statement entered by Kenrick Lindquist MD - 09/14/23 13:43> Patient seen and examined. Case discussed with Chanell RESENDIZ. Hgb stable Indeterminant liver lesion. Patient apparently has HCV and was never treated. Discussed with patient that untreated HCV can eventually lead to HCC. HCV RNA ordered. Arrangements for OP hepatology evaluation being made. IP GI Service will sign off. Date of Service September 14, 2023 Assessment & Plan (1) Anemia: (2) Liver mass: Plan No cause for anemia seen on either Colonoscopy or EGD. He underwent MRI for liver lesion that was indeterminant and histologic evaluation was recommended for further evaluation. - continue to follow hgb/hct, transfuse as needed. - continue with protonix 40mg bid. - he is being set up for outpatient capsule endoscopy to further evaluat anemia. - He reports a history of untreated hep c and now with liver lesion with recommendation for biopsy. I will have our office set him up a referral to hepatology for further evaluate as well as treatment of hep c. will check AFP as well as hep C pcr. Admission and Anticipated Discharge Date Admission Date: August 31, 2023 Subjective Patient resting in bed comfortably. no further dark stools per patient. he denies any nausea, vomiting, heartburn, abdominal pain, or brbpr. 09/13 hgb 8 (previously 8). he tells me that he has a history of hep c that he has chosen to not have treated. MRI 09/13 Indeterminate lesion demonstrated within the liver definitive assessment would require histologic diagnosis. 09/11 Colonoscopy: Small cecal polyp removed Left sided diverticulosis Grade I internal hemorrhoids 09/11 EGD: Moderate gastritis body and antrum - biopsies taken. Review of Systems Review of Systems: All systems reviewed & are unremarkable except as noted in HPI & below Physical Exam Constitutional: WD/WN, vitals as above Respiratory: normal respiratory effort, lungs clear to auscultation Cardiovascular: RRR, no murmur, no edema Gastrointestinal (Abdomen): normal bowel sounds, soft, nontender, no hepatosplenomegaly Psychiatric: Orientation: alert and oriented x 3 Results & Data Results & Data Vital Signs (Past 12 Hours) Vital Signs Temp Pulse Pulse Resp BP Pulse Ox O2 Del Method 09/14/23 08:30 70 09/14/23 07:47 97.7 F 80 18 178/80 H 94 Room Air 09/14/23 02:40 98.2 F 70 18 155/72 H 95 Room Air 09/13/23 23:55 74 09/13/23 23:23 97.7 F 70 18 166/74 H 96 Room Air Coding Level of Care Code 81542 SUB INP/OBS CARE 2/35MIN Diagnoses Anemia D64.9 Anemia type: unspecified type Liver mass R16.0 (1) Anemia Anemia type: unspecified type Qualified Code(s): D64.9 - Anemia, unspecified
--- NOTE | 2023-09-14 14:21 | Hospitalist Progress Note ---
Date of Service September 14, 2023 Assessment & Plan (1) Acute renal failure: Plan: 72yo male with history of CAD, DM, HTN, AF, recent MRSA bacteremia and foot OM on antibiotics presenting from [facility] with metabolic encephalopathy/confusion as well as shaking, N/V. Patient found to have anion gapped metabolic acidosis, significant FLORECITA on CKD with elevated lactate initial hyperkalemia treated, Renal ultrasound negative for obstruction CT abdomen/pelvis, no obstructive uropathy, liver mass noted previously with request for follow up MRI, ordered 09/13 Indeterminate lesion demonstrated within the liver definitive assessment would require histologic diagnosis. GI will consider IR BX and order AFP Further review of the records shows that he was resumed on Entresto as well as taking Jardiance, lisinopril, Lasix, and metformin after discharge last admission His creatinine started rising on 08/22 and He also had some N/V and poor p.o. intake the 2 days leading up to admission Cr PEAKED and pre had urgent temporary dialysis cath placed, Underwent dialysis on 09/01 and again on 09/02 with significant improvement, removed HD catheter on 09/05 with improvement in Cr and mentation Appreciate Nephrology consult Continue to HOLD home amlodipine Entresto, Jardiance, metformin, and Lasix (2) Anemia: Plan: Hemoglobin dropped acutely from 10.4 --> transfused 4 units PRBCs ( previously 2 u FFP and 4 U platelets also) Hemolysis labs remain negative (TBili,LDH) except UZAIR/Geovani is positive CT abdomen/pelvis 09/01 negative for retroperitoneal bleeding B12 folate and iron studies all ordered-folate is low-replace with 1 mg folic acid daily Likely also a component of anemia of chronic disease and renal failure Heme concerned about possible hemolytic anemia with +Geovani and started IVIG- received 2 days worth of dosing endoscopy has 09/11 Colonoscopy: Small cecal polyp removed Left sided diverticulosis Grade I internal hemorrhoids 09/11 EGD: Moderate gastritis body and antrum - biopsies taken. (3) Acute metabolic encephalopathy: Plan: Patient was completely nonverbal, significantly lethargic, not even able to respond to any commands for 3 to [address] head negative Likely secondary to toxic encephalopathy, taking long acting morphine and gabapentin as well as cefepime in setting of FLORECITA--> toxicities, Also some component of uremia checked B1 level and started empiric thiamine Resolved. (4) Thrombocytopenia: Plan: Platelets started dropping on outpatient labs on 08/22 and nadired at 19, with coffee-ground emesis and melena CT abdomen/pelvis without splenomegaly He does have a liver mass which is noted from previous ordered MRI 09/13 Appreciate hematology consultation-given anemia and thrombocytopenia, workup ordered for TTP/HUS and was negative for evidence of microangiopathic hemolytic anemia. Workup for DIC negative felt secondary to linezolid which was just discontinued on 08/28 and is well- known to cause thrombocytopenias Potentially PPI, cefepime could cause thrombocytopenia's as well-cefepime has also been discontinued Given GI bleeding, transfused platelets (3 units) Follow-up HIT antibodies but 4 T score is 3-he is getting heparin flushes only through his PICC line Continue holding home Plavix and Eliquis s/p IVIG which could help drug-induced thrombocytopenia as per hematology Elevated INR-could be Vit K deficiency s/pn Vit K 10mg and FFP on 09/01, INR now down (5) Chronic pain: Plan: Patient complaining of severe pain in his feet from PAD and lower back now that he is awake and the morphine has been dialyzed out of his system Start low-dose oxycodone 5 mg p.o. every 8 hours as needed and would not escalate beyond this for now Can also give Tylenol as needed (6) Hypoglycemia: Plan: Patient with hypoglycemia on arrival likely from poor renal clearance of insulin in setting of FLORECITA-now resolved on D5 and fluids which have since been stopped on dialysis Continue to hold Lantus and give Novolog SSI only as needed( has not needed much) (7) MRSA bacteremia: Plan: Patient with OM of left foot and recent hospitalization for MRSA bacteremia and PNA. Had some gram negative rods on wound gram stain Continue Doxycycline 100mg po BID until 09/19/2023--> changed to IV given vomiting and inability to take po from encephalopathy Changed Cefepime to Cipro due to possible cefepime toxicity and cause of encephalopathy-renally dosed until 09/19/23 liver mass noted previously MRI on 09/13, without additional infomation may need IR bx in the future Plan Hypomagnesemia-replete Hypocalcemia-resolved after corrected for hypoalbuminemia CAD - chronic. stable. no CP or evidence of cardiac ischemia -Holding Plavix for bleeding and thrombocytopenia, can give carvedilol, and atorvastatin HTN - Chronic. -Continue Carvedilol once able to take po but hold Amlodipine Depression/Anxiety - chronic -Continue Sertraline 75mg po daily Atrial Fibrillation - paroxysmal, in NSR here -Continue Amiodarone 200mg po daily -He typically is on Eliquis will be held as need capsule enteroscopy for further workup of anemia Neuropathy-HOLD gabapentin due to FLORECIAT and encephalopathy DVT proph-hold any anticoagulation for now due to severe thrombocytopenia and bleeding Admission and Anticipated Discharge Date Admission Date: August 31, 2023 Subjective pt is doing well no issues since double scopes agreeable to rehab Physical Exam Physical Exam: awake and alert cardiac exam is regular, lungs are clear abd is soft, non tender foot with dressing in place Results & Data Results & Data Vital Signs (Past 12 Hours) Vital Signs Temp Pulse Pulse Resp BP Pulse Ox O2 Del Method 09/14/23 11:25 97.7 F 67 20 171/78 H 95 Room Air 09/14/23 08:30 70 09/14/23 08:00 Room Air 09/14/23 07:47 97.7 F 80 18 178/80 H 94 Room Air 09/14/23 02:40 98.2 F 70 18 155/72 H 95 Room Air PG Care Time/CCT Total # of Minutes Spent Total Time Spent with Patient: Total time spent is greater than 50% in coordination of care (as documented) at patient's floor/unit and/or counseling patient: Coding Level of Care Code 88616 SUB INP/OBS CARE 2/35MIN Diagnoses Acute renal failure N17.9 Anemia D64.9 Anemia type: unspecified type Acute metabolic encephalopathy G93.41 Thrombocytopenia D69.6 Chronic pain G89.29 Hypoglycemia E16.2 MRSA bacteremia R78.81; B95.62 (2) Anemia Anemia type: unspecified type Qualified Code(s): D64.9 - Anemia, unspecified
[2023-09-15] MEDS: ALTEPLASE, RECOMBINANT 1 MG/ML 2ML VIAL INSTIL ONE (02:54)
[2023-09-15 06:42] LABS: Hemoglobin 8.4 g/dl (14.0-18.0); Mean Corpuscular Hemoglobin 27.8 pg (25.0-34.0); Mean Corpuscular Hgb Conc 32.3 g/dL (32.0-36.0); Mean Corpuscular Volume 86.1 fL (80.0-100.0); Platelet Count 163 K/uL (130-400); RDW Coefficient of Variation 16.3 % (11.5-14.5); RDW Standard Deviation 51.2 fL (36.4-46.3); Red Blood Count 3.02 M/uL (4.70-6.10); White Blood Count 5.06 K/ul (4.8-10.8)
[2023-09-15 07:00] LABS: BUN Creatinine Ratio 16.2 (10-20); Calcium 7.1 mg/dl (8.6-10.3); Creatinine Clr Calc Pharmacy 53.1 ml/min; Est GFR (African American) 60.2 ml/min; Potassium 3.4 mmol/L (3.5-5.1)
[2023-09-15] MEDS: amLODIPine BESYLATE 5 MG TAB PO SCH (08:48)
[2023-09-15] MEDS: carvediloL 6.25 MG TAB PO SCH (08:48)
--- NOTE | 2023-09-15 15:10 | Hospitalist Progress Note ---
Date of Service September 15, 2023 Assessment & Plan (1) Acute renal failure: Plan: 72yo male with history of CAD, DM, HTN, AF, recent MRSA bacteremia and foot OM on antibiotics presenting from [facility] with metabolic encephalopathy/confusion as well as shaking, N/V. Patient found to have anion gapped metabolic acidosis, significant FLORECITA on CKD with elevated lactate initial hyperkalemia treated, Renal ultrasound negative for obstruction CT abdomen/pelvis, no obstructive uropathy, liver mass noted previously with request for follow up MRI, ordered 09/13 Indeterminate lesion demonstrated within the liver definitive assessment would require histologic diagnosis. GI will consider IR BX and order AFP Further review of the records shows that he was resumed on Entresto as well as taking Jardiance, lisinopril, Lasix, and metformin after discharge last admission His creatinine started rising on 08/22 and He also had some N/V and poor p.o. intake the 2 days leading up to admission Cr PEAKED and pre had urgent temporary dialysis cath placed, Underwent dialysis on 09/01 and again on 09/02 with significant improvement, removed HD catheter on 09/05 with improvement in Cr and mentation Appreciate Nephrology consult Continue to HOLD home amlodipine Entresto, Jardiance, metformin, and Lasix (2) Anemia: Plan: Hemoglobin dropped acutely from 10.4 --> transfused 4 units PRBCs ( previously 2 u FFP and 4 U platelets also) Hemolysis labs remain negative (TBili,LDH) except UZAIR/Geovani is positive hgb remains stable but not restarting eliquis CT abdomen/pelvis 09/01 negative for retroperitoneal bleeding B12 folate and iron studies all ordered-folate is low-replace with 1 mg folic acid daily Likely also a component of anemia of chronic disease and renal failure Heme concerned about possible hemolytic anemia with +Geovani and started IVIG- received 2 days worth of dosing endoscopy has 09/11 Colonoscopy: Small cecal polyp removed Left sided diverticulosis Grade I internal hemorrhoids 09/11 EGD: Moderate gastritis body and antrum - biopsies taken. (3) Acute metabolic encephalopathy: Plan: Patient was completely nonverbal, significantly lethargic, not even able to respond to any commands for 3 to [address] head negative Likely secondary to toxic encephalopathy, taking long acting morphine and gabapentin as well as cefepime in setting of FLORECITA--> toxicities, Also some component of uremia checked B1 level and started empiric thiamine Resolved. (4) Thrombocytopenia: Plan: Platelets started dropping on outpatient labs on 08/22 and nadired at 19, with coffee-ground emesis and melena CT abdomen/pelvis without splenomegaly He does have a liver mass which is noted from previous ordered MRI 09/13 Appreciate hematology consultation-given anemia and thrombocytopenia, workup ordered for TTP/HUS and was negative for evidence of microangiopathic hemolytic anemia. Workup for DIC negative felt secondary to linezolid which was just discontinued on 08/28 and is well- known to cause thrombocytopenias Potentially PPI, cefepime could cause thrombocytopenia's as well-cefepime has also been discontinued Given GI bleeding, transfused platelets (3 units) Follow-up HIT antibodies but 4 T score is 3-he is getting heparin flushes only through his PICC line Continue holding home Plavix and Eliquis s/p IVIG which could help drug-induced thrombocytopenia as per hematology Elevated INR-could be Vit K deficiency s/pn Vit K 10mg and FFP on 09/01, INR now down (5) Chronic pain: Plan: Patient complaining of severe pain in his feet from PAD and lower back now that he is awake and the morphine has been dialyzed out of his system Start low-dose oxycodone 5 mg p.o. every 8 hours as needed and would not escalate beyond this for now Can also give Tylenol as needed (6) Hypoglycemia: Plan: Patient with hypoglycemia on arrival likely from poor renal clearance of insulin in setting of FLORECITA-now resolved on D5 and fluids which have since been stopped on dialysis Continue to hold Lantus and give Novolog SSI only as needed( has not needed much) (7) MRSA bacteremia: Plan: Patient with OM of left foot and recent hospitalization for MRSA bacteremia and PNA. Had some gram negative rods on wound gram stain Continue Doxycycline 100mg po BID until 09/19/2023--> changed to IV given vomiting and inability to take po from encephalopathy Changed Cefepime to Cipro due to possible cefepime toxicity and cause of encephalopathy-renally dosed until 09/19/23 liver mass noted previously MRI on 09/13, without additional infomation may need IR bx in the future Plan Hypomagnesemia-replete Hypocalcemia-resolved after corrected for hypoalbuminemia CAD - chronic. stable. no CP or evidence of cardiac ischemia -Holding Plavix for bleeding and thrombocytopenia, can give carvedilol, and atorvastatin HTN - Chronic. -Continue Carvedilol & Amlodipine Depression/Anxiety - chronic -Continue Sertraline 75mg po daily Atrial Fibrillation - paroxysmal, in NSR here, for bp control increase coreg, stable HFpEF -Continue Amiodarone 200mg po daily -He typically is on Eliquis will be held as need capsule enteroscopy for further workup of anemia Neuropathy-HOLD gabapentin due to FLORECITA and encephalopathy DVT proph-hold any anticoagulation for now due to severe thrombocytopenia and bleeding Admission and Anticipated Discharge Date Admission Date: August 31, 2023 Subjective pt is doing well no issues since double scopes agreeable to rehab, bowel and bladder function normal hgb low but stable Physical Exam Physical Exam: awake and alert cardiac exam is regular, lungs are clear abd is soft, non tender foot with dressing in place Results & Data Results & Data Vital Signs (Past 12 Hours) Vital Signs Temp Pulse Pulse Resp BP Pulse Ox O2 Del Method 09/15/23 11:27 Room Air 09/15/23 11:13 97.3 F L 68 16 162/77 H 95 Room Air 09/15/23 07:40 97.7 F 81 16 176/79 H 97 Room Air 09/15/23 07:27 71 09/15/23 06:13 97.5 F L 81 18 189/97 H 95 Room Air Laboratory Results Reviewed CBC reviewed chemistry augmented potassium PG Care Time/CCT Total # of Minutes Spent Total Time Spent with Patient: Total time spent is greater than 50% in coordination of care (as documented) at patient's floor/unit and/or counseling patient: Coding Level of Care Code 38906 SUB INP/OBS CARE 2/35MIN Diagnoses Acute renal failure N17.9 Anemia D64.9 Anemia type: unspecified type Acute metabolic encephalopathy G93.41 Thrombocytopenia D69.6 Chronic pain G89.29 Hypoglycemia E16.2 MRSA bacteremia R78.81; B95.62 (2) Anemia Anemia type: unspecified type Qualified Code(s): D64.9 - Anemia, unspecified
[2023-09-15 23:42] LABS: Hepatitis C Vira RNA (Log) PCR 5.85 Log IU/mL (NOT DETECTED); Hepatitis C Viral RNA by PCR 716000 IU/mL (NOT DETECTED)
--- NOTE | 2023-09-16 17:04 | Discharge Summary ---
Discharge Summary Date of Service September 16, 2023 Principal Dx & Hospital Course #1 = Principal Diagnosis (1) Acute renal failure: 72yo male with history of CAD, DM, HTN, AF, recent MRSA bacteremia and foot OM on antibiotics presenting from [facility] with metabolic encephalopathy/confusion as well as shaking, N/V. Patient found to have anion gapped metabolic acidosis, significant FLORECITA on CKD with elevated lactate initial hyperkalemia treated, Renal ultrasound negative for obstruction CT abdomen/pelvis, no obstructive uropathy, liver mass noted previously with request for follow up MRI, ordered 09/13 Indeterminate lesion demonstrated within the liver definitive assessment would require histologic diagnosis. GI will consider IR BX and order AFP Further review of the records shows that he was resumed on Entresto as well as taking Jardiance, lisinopril, Lasix, and metformin and presented with Cr rising on 08/22 and He also had some N/V and poor p.o. intake the 2 days leading up to admission Cr PEAKED and pre had urgent temporary dialysis cath placed, Underwent dialysis on 09/01 and again on 09/02 with significant improvement, removed HD catheter on 09/05 with improvement in Cr and mentation Continue to HOLD home Entresto, Jardiance, metformin, and Lasix (2) Anemia: Hemoglobin dropped acutely from 10.4 --> transfused 4 units PRBCs ( previously 2 u FFP and 4 U platelets also) Hemolysis labs remain negative (TBili,LDH) except UZAIR/Geovani is positive hgb remains stable but not restarting eliquis as the confirmed source of bleeding not identified, will consider capsule endoscopy as outpt CT abdomen/pelvis 09/01 negative for retroperitoneal bleeding B12 folate and iron studies all ordered-folate is low-replace with 1 mg folic acid daily Likely also a component of anemia of chronic disease and renal failure Heme concerned about possible hemolytic anemia with +Geovani and started IVIG- received 2 days worth of dosing endoscopy 09/11 Colonoscopy: Small cecal polyp removed Left sided diverticulosis Grade I internal hemorrhoids 09/11 EGD: Moderate gastritis body and antrum - biopsies taken. (3) Acute metabolic encephalopathy: Patient was completely nonverbal, significantly lethargic, not even able to respond to any commands for 3 to [address] head negative Likely secondary to toxic encephalopathy, taking long acting morphine and gabapentin as well as cefepime in setting of FLORECITA--> toxicities, Also some component of uremia checked B1 level and started empiric thiamine Resolved. (4) Thrombocytopenia: Platelets started dropping on outpatient labs on 08/22 and nadired at 19, with coffee-ground emesis and melena CT abdomen/pelvis without splenomegaly He does have a liver mass which is noted from previous ordered MRI 09/13 ill defined Appreciate hematology consultation-given anemia and thrombocytopenia, workup ordered for TTP/HUS and was negative for evidence of microangiopathic hemolytic anemia. Workup for DIC negative felt secondary to linezolid which was just discontinued on 08/28 and is well- known to cause thrombocytopenias Potentially PPI, cefepime could cause thrombocytopenia's as well-cefepime has also been discontinued Given GI bleeding, transfused platelets (3 units) Follow-up HIT antibodies but 4 T score is 3-he is getting heparin flushes only through his PICC line Continue holding home Plavix and Eliquis s/p IVIG which could help drug-induced thrombocytopenia as per hematology Elevated INR-could be Vit K deficiency s/pn Vit K 10mg and FFP on 09/01, INR now down (5) Chronic pain: Patient complaining of severe pain in his feet from PAD and lower back now that he is awake and the morphine has been dialyzed out of his system Start low-dose oxycodone 5 mg p.o. every 8 hours as needed and would not escalate beyond this for now Can also give Tylenol as needed (6) Hypoglycemia: Patient with hypoglycemia on arrival likely from poor renal clearance of insulin in setting of FLORECITA-now resolved Continue to hold Lantus and give Novolog SSI only as needed( has not needed much) (7) MRSA bacteremia: Patient with OM of left foot and recent hospitalization for MRSA bacteremia and PNA. Had some gram negative rods on wound gram stain Continue Doxycycline 100mg po BID until 09/19/2023--> changed to IV given vomiting and inability to take po from encephalopathy Changed Cefepime to Cipro due to possible cefepime toxicity and cause of encephalopathy-renally dosed until 09/19/23 liver mass noted previously MRI on 09/13, without additional infomation may need IR bx in the future Plan Hypomagnesemia-replete Hypocalcemia-resolved after corrected for hypoalbuminemia CAD - chronic. stable. no CP or evidence of cardiac ischemia -Holding Plavix for bleeding and thrombocytopenia, can give carvedilol, and atorvastatin HTN - Chronic. -Continue Carvedilol & Amlodipine, may need coreg to be uptitrated Depression/Anxiety - chronic -Continue Sertraline 75mg po daily Atrial Fibrillation - paroxysmal, in NSR here, for bp control increase coreg, stable HFpEF -Continue Amiodarone 200mg po daily -He typically is on Eliquis will be held as need capsule enteroscopy for further workup of anemia DVT proph-hold any anticoagulation for now due to severe thrombocytopenia and bleeding Notes For Next Care Provider Patient's cardiac status is improved and echocardiogram subsequently made medications were discontinued. Currently we are sticking with carvedilol and amlodipine with doses that may need to be titrated up. Certainly volume becomes an issue sneaking some Lasix back and could be undertaken also. Patient need a capsule enteroscopy to determine if safe to reinstitute VTE prevention for his atrial fibrillation. Regarding his diabetes he has not required insulin for a few days subsequently only loose sliding scale was recommended at time of discharge. He is completing his antibiotic therapy for his recent infection. Regard to his liver mass this is been indeterminate and difficult to assess whether its benign or not. Most recent studies did not suggest significant change. I may be beneficial to reimage once again after the patient is complete his antibiotics to determine if we need to pursue an interventional diagnostic test such as interventional radiology biopsy. However this could be approached as an outpatient also. Admission HPI Per Admitting Provider Cody Alvarez is a 72yo male with history of CAD s/p CABG x 2V, DM, HTN, HLP and AF on Eliquis anticoagulation presenting from [facility] rehabilitation with report of confusion and encephalopathy. Patient reports having some nausea earlier today. He did not eat well. In the evening he began feeling shaky and tremulous. He states he felt confused like he couldn't pay attention to what was going on around him or couldn't follow conversations. Patient did take his insulin today. Hypoglycemic on arrival with BSG=53. He was given Dextrose with improvement in blood sugar as well as improvement in his cognition and mental state. Recent admission to [facility] 07/12/23 - 07/31/23 after presenting with generalized weakness and worsening left great toe infection. Blood cultures during that hospitalization POSITIVE for MRSA. He had a transthoracic echocardiogram which did not reveal endocarditis. He was treated wt Daptomycin and Ceftaroline. He had a CT of the chest on 07/21/23 which revealed multilobar bilateral irregular centrally cavitary appearing nodules of consolidation concerning for possible necrotic pneumonia/septic emboli vs pulmonary metastasis. He had a REGINE performed on 07/27/23 which did not reveal endocarditis. Patient was transitioned to Vancomycin - end date 08/18/23. Patient did have an FLORECITA during his hospitalization - Cr peaked at 2.54 and improved to 1.35 on the day of discharge. He was given IV Venofer as well. ER Course: Insulin 5u + Dextrose 50mL NSS x 2L Dextrose 50mL Calcium gluconate 1000mg Discharge Exam Awake alert appropriate. Patient has no complaints or problems. He is without distress. Lung exam is clear Updated Medication List Medication Instructions Recorded Confirmed Type Heparin Porcine Lock Flush 5 ml IV .Q SHIFT 08/05/23 08/31/23 History acetaminophen 650 mg 650 mg PO TID 08/05/23 08/31/23 History tablet,extended release amiodarone 200 mg tablet 200 mg PO DAILY 08/05/23 08/31/23 History atorvastatin 80 mg tablet (Lipitor) 80 mg PO HS 08/05/23 08/31/23 History clopidogrel 75 mg tablet 75 mg PO QAM 08/05/23 08/31/23 History ferrous sulfate 325 mg (65 mg 325 mg PO 3XWK 08/05/23 08/31/23 History iron) tablet sertraline 25 mg tablet 75 mg PO DAILY 08/05/23 08/31/23 History sodium chloride 1,000 mg soluble 1,000 mg PO AMHS 08/05/23 08/31/23 History tablet Saccharomyces boulardii 250 mg 250 mg PO TID 08/31/23 08/31/23 History capsule (Florastor) omeprazole 20 mg capsule,delayed 20 mg PO AMHS 08/31/23 08/31/23 History release ondansetron 4 mg disintegrating 4 mg PO Q6H PRN Nausea And Vomiting 08/31/23 08/31/23 History tablet protein supplement 1 ea PO BID 08/31/23 08/31/23 History apixaban 5 mg tablet (Eliquis) 5 mg PO BID 09/01/23 09/01/23 History amlodipine 2.5 mg tablet 5 mg (2 x 2.5 mg) PO DAILY #0 tabs 09/15/23 08/31/23 Rx carvedilol 3.125 mg tablet 6.25 mg (2 x 3.125 mg) PO BID #0 09/15/23 08/31/23 Rx tabs ciprofloxacin HCl 500 mg tablet 500 mg PO BID #8 tabs 09/15/23 Rx doxycycline hyclate 100 mg capsule 100 mg PO Q12 #0 caps 09/15/23 08/31/23 Rx insulin aspart U-100 100 unit/mL 1 sliding scale dose SC ACHS #10 mL 09/15/23 Rx subcutaneous solution (Novolog U-100 Insulin aspart) oxycodone 5 mg tablet 5 - 10 mg (1 - 2 x 5 mg) PO Q6H 09/15/23 08/31/23 Rx PRN mod or severe pain #0 tabs Hospital Stay Data Consultations 08/31/23 01:01 ED Decision to Admit Stat 08/31/23 09:43 Consult Nephrology Routine 09/01/23 09:18 Consult Hematology Routine 09/02/23 08:36 Consult [employer] Stat 09/04/23 23:08 Consult Gastroenterology Routine 09/10/23 14:38 Consult Gastroenterology Routine Procedures Performed Operation Date: 09/12/23 16:45 Actual Procedures p Colonoscopy Polypectomy - Kenrick Lindquist MD s EGD Biopsy Cytology - Kenrick Lindquist MD Diagnostic Imagining Performed 08/30/23 23:18 CT head/brain wo con Stat 08/31/23 13:29 US renal/blad retro comp Routine 09/01/23 09:28 CT abd pelvis wo con Stat 09/14/23 10:00 MRI Abdomen [MR abdomen wo/w con] Routine Pending Results Patient Have Any Pending Studies at Discharge: No Discharge Instructions Given to Patient (Per Discharging Provider) Pt has recovery of his renal function, restarting bp meds cautiously. His last Echo has recovered EF so will not restart entesto at this time but utilize coreg and amlodipine His liver lesion is still undefined on MRI, GI medicine suggests consideration of out pt surveilence and possible IR procedure, pt is completing antibiotics for mrsa bacteremia. Total Time Total Time Spent Total Time Spent (In Minutes): It required greater than 30 minutes to prepare this patient for discharge. Coding Level of Care Code 83655 INP/OBS DISCH >30 MIN Diagnoses Acute renal failure N17.9 Anemia D64.9 Anemia type: unspecified type Acute metabolic encephalopathy G93.41 Thrombocytopenia D69.6 Chronic pain G89.29 Hypoglycemia E16.2 MRSA bacteremia R78.81; B95.62
== END 2023-09-16 15:55 | DRG 682 ==
LOC: ED 22:12 → SUATTDRO 08-31 01:29 → 2W 08-31 01:29 → 1E 09-02 09:39 → 2S 09-02 18:45

== ENCOUNTER 2023-12-27 14:19 | Inpatient (IN) ==
--- NOTE | 2023-12-27 14:50 | Emergency Department Note ---
Impression & Plan Syncope, Anemia, Hypomagnesemia, Hypokalemia, Elevated troponin ED Provider Note NAME: ELLEN PELAEZ AGE: 73 SEX: M : 1950 ARRIVES VIA: Ambulance INFORMANT: [Patient][ems, nurses] ED PROVIDER(S): [Amarjit Francisco MD] CHIEF COMPLAINT: Syncope HISTORY OF PRESENT ILLNESS: The patient is a 73-year-old male who was in the parking in the wound center. He had an upcoming appointment. He was having his sacral wound reevaluated. The patient states that just before he arrived at the wound center, he developed discomfort across the abdomen as if he was hungry. He was getting out of his vehicle and suddenly, without warning, felt himself having a bowel movement. He then became lightheaded and apparently, passed out. The length of his loss of consciousness is unclear but was described as quite short. He did not have chest pain, he was not short of breath, he was not sweating. The patient's initial blood pressure was 90 over palp. His blood pressure quickly improved. He now feels back to baseline. He had felt fine all day today. His stool was described as brown, not bloody or black. PMHx/PSHx/Social Hx: See Below PHYSICAL EXAM: GENERAL: Patient is in no acute distress. HEENT: No acute trauma, normocephalic atraumatic, mucous membranes moist, no nasal congestion. NECK: No stridor, no adenopathy, no meningismus, trachea is midline. LUNGS: Clear to auscultation bilaterally, no wheeze, no rhonchi, breath sounds equal. HEART: Without murmurs gallops or rubs, regular rate and rhythm. ABDOMEN: Soft, nontender, no peritonitis. EXTREMITIES: No cyanosis, full range of motion of all the joints without pain or difficulty. NEUROLOGIC: Oriented x 3, no acute motor or sensory deficits, no focal weakness. SKIN: No jaundice, no diaphoresis. DIFFERENTIAL DIAGNOSIS: Vasovagal syncope, dysrhythmia, MN, anemia, electrolyte imbalance, GI bleeding, among others. EMERGENCY DEPARTMENT PROCEDURES: MEDICAL DECISION MAKING: There is no leukocytosis. The patient is anemic however, he appears to have anemia as part of his past history. He has a lower platelet count, the lower platelet count has been documented before. Babesia and anaplasmosis smears did return negative. Potassium and magnesium were both low. There was some renal insufficiency/failure however, this has been documented before. Alk phos was elevated, the remaining liver enzymes were unremarkable. The TSH was high however, the T4 was normal. ECG shows a sinus bradycardia, no obvious dysrhythmia or ST elevation. Cardiac enzyme testing x 1 is slightly elevated. This troponin elevation could be secondary to cardiac injury or mismatch. Looking back at previous testing, he has had some mild troponin elevations documented in the past. Chest x-ray shows some presumed atelectasis, there was no CHF or pneumonia. Urinalysis did not show findings of infection. The patient presents with a syncopal spell. He has a low potassium and low magnesium. He had lost bowel continence. His troponin is mildly elevated. Given the circumstances, I do think the patient requires further care/monitoring in the hospital. The patient was given IV saline, 500 cc. He was given oral potassium and oral magnesium. I did speak with the patient and case management, the on-call hospitalist was consulted. Prior/Outside records/notes reviewed: Today's EMS notes describing his presentation and transport to this hospital. ECG per my interpretation: Indication was syncope. The ECG shows a sinus bradycardia with a rate of 51. There is evidence for an old anterior/septal infarct. There is no acute ST elevation, no PVCs. The QTc was 459. Compared to an ECG from 30 August 2023, the heart rate has decreased. Continuous Cardiac Monitoring per my interpretation: An order was placed for continuous cardiac monitoring. The monitor shows a rate of 53 with sinus bradycardia. Imaging/x-ray results per my interpretation: Chest x-ray does not show mediastinal widening, pneumonia or pneumothorax. Some atelectasis was suspected. Chronic Medical/Social conditions affecting care: Advanced age. Care/Management discussed with: Case management, the on-call hospitalist. Level of care consideration(s): After review of the information above and other included data: --I believe the patient requires escalation of care to admission DISPOSITION: Admitted Past Med/Surg History Problem List (Updated 12/27/23 @ 21:22 by Amarjit Francisco MD) Elevated troponin (Acute) Hypokalemia (Acute) Hypomagnesemia (Acute) Anemia (Acute) Syncope (Acute) CKD (chronic kidney disease) Sacral decubitus ulcer, stage III Syncope Unresponsive episode (Acute) Pressure injury of coccygeal region, stage 3 (Acute) DM (diabetes mellitus) Cellulitis in diabetic foot (Acute) Anemia (Acute) Diabetic infection of left foot (Acute) Diabetic infection of left foot Wound infection Surgical wound, non healing Liver mass Hyponatremia Supraventricular tachycardia Atrial fibrillation Multifocal pneumonia (Acute) Sepsis (Acute) Peripheral arterial disease with history of revascularization Ulcer of toe Diabetic foot ulcer Acute kidney injury superimposed on CKD 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 Anxiety (Acute) Anemia (Acute) hx Chest pain (Acute) DVT prophylaxis Arterial occlusion, lower extremity (Acute) Medical History Chronic pain Thrombocytopenia Acute renal failure Osteomyelitis of foot, left, acute MRSA bacteremia Heart failure with ejection fraction improved from reduced range to preserved range GIB (gastrointestinal bleeding) History of atrial fibrillation CAD (coronary artery disease) s/p CABG x 2 vessel June 2021 Acute HFrEF (heart failure with reduced ejection fraction) Follows with [facility] EF 50-55% per 05/2022 ECHO Cardiomyopathy Dyslipidemia Tobacco abuse smoke-12/day Atherosclerosis of artery of left lower extremity s/p left leg angiogram procedure with [employer] of proximal vein bypass 05/27/23 s/p left leg femoral artery to posterior tibial artery reverse saphenous vein bypass done at [facility] 02/2023 s/p left SFA and popliteal stents History of anemia History of anxiety History of alcohol abuse started 1965, quit 1999 Hx of drug abuse started 1965, quit 1999 "used every drug known to man">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, stayed in for 13 years IV drug abuse hx-quit in 1981 History of hepatitis B hx IV drug use Hepatitis C virus has had since the late s>no tx, "never had any trouble with it" Heart failure with mid-range ejection fraction Follows with [facility] EF 50-55% per 05/2022 ECHO Type 2 diabetes mellitus HTN (hypertension) Surgical History History of amputation of great toe S/P CABG x 2 ~2021, went to ER w/"anxiety," found to be in congestive heart failure, had more cardiac testing, sent for f/u w/s cardio surgeon, done [facility]; f/u dr. mckeon Hx of cardiac catheterization 06/2021 [facility] History of open reduction and internal fixation (ORIF) procedure rt elbow and lt wrist>hardware intact Hx of colonoscopy History of left knee surgery 1988-tibial plateau reconstruction History of eye surgery retina History of cataract extraction rt/lt Social History Smoking Status: Current every day smoker Tobacco Type: Cigarettes Cigarettes Per Day: 10; Second Hand Exposure: No; Do You Dip or Chew Tobacco: No; Hx Alcohol Use: No Hx Substance Use: Yes Last Used Substance: Unknown Last Used Substance Other:: quit 1999-stated "used every drug known to man" Substance Use Type Other:: IV Drugs. Preferred Language: Nepali Communication Ability: Unable Quality Assurance Tech Required: No Beliefs That Will Affect Care: None Current Living Situation: Other Current Living Situation Comment: Currently living at home current occupational status: disabled How many Children do You have: 1 other: Has a caregiver to assist with care Feels Safe at Home: Yes Diet: diabetic and ideal protein Assistive Devices: Walker Allergies Allergies Allergy/AdvReac Type Severity Reaction Status Date / Time cat dander Allergy Intermediate CONGESTION Verified 12/19/23 14:49 Home Meds Home Medications Medication Instructions Recorded Confirmed amiodarone 200 mg tablet 200 mg PO DAILY 08/05/23 12/27/23 atorvastatin 80 mg tablet (Lipitor) 80 mg PO UD 08/05/23 12/27/23 clopidogrel 75 mg tablet 75 mg PO UD 08/05/23 12/27/23 sertraline 25 mg tablet 75 mg PO DAILY 08/05/23 12/27/23 Saccharomyces boulardii 250 mg 250 mg PO TID 08/31/23 12/27/23 capsule (Florastor) protein supplement 1 ea PO DAILY PRN Other 08/31/23 12/27/23 gabapentin 100 mg capsule 100 mg PO DAILY 12/05/23 12/27/23 carvedilol 3.125 mg tablet 25 mg PO UD 12/27/23 12/27/23 empagliflozin 25 mg tablet 25 mg PO DAILY 12/27/23 12/27/23 (Jardiance) furosemide 20 mg PO DAILY 12/27/23 12/27/23 hydralazine 25 mg tablet 25 mg PO TID 12/27/23 12/27/23 insulin glargine 100 unit/mL (3 44 unit subcut UD 12/27/23 12/27/23 mL) subcutaneous pen (Lantus Solostar U-100 Insulin) losartan 100 mg tablet 100 mg PO DAILY 12/27/23 12/27/23 pantoprazole 40 mg tablet,delayed 40 mg PO DAILY 12/27/23 12/27/23 release (Protonix) rivaroxaban 20 mg tablet (Xarelto) 20 mg PO DAILY 12/27/23 12/27/23 sildenafil 100 mg tablet 100 mg PO DAILY PRN Erectile 12/27/23 12/27/23 Dysfunction Previous Rx's Medication Instructions Recorded amlodipine 2.5 mg tablet 5 mg (2 x 2.5 mg) PO DAILY #0 tabs 09/15/23 Results & Data (ED) Vital Signs Vital Signs - 24 hr 12/27/23 14:34 12/27/23 14:34 12/27/23 14:34 Temperature 36.4 C L Temperature Source Oral Oral Pulse Rate 53 L Pulse Rate [Apical] Respiratory Rate 15 Respiratory Effort / Characteristics Non-Labored Spontaneous Respiratory Depth Normal Blood Pressure 150/79 H Blood Pressure [Left Arm] Blood Pressure Mean 102 Blood Pressure Mean [Left Arm] Pulse Oximetry 94 Oxygen Delivery Method Room Air Room Air Sepsis Recent Fever Within 48 Hours No Sepsis New/Unexplained Change in Mental Status N/A Sepsis Action Taken by Nursing No Action Required 12/27/23 14:39 12/27/23 14:54 12/27/23 16:30 Temperature Temperature Source Pulse Rate 53 L Pulse Rate [Apical] 58 L Respiratory Rate 24 Respiratory Effort / Characteristics Respiratory Depth Blood Pressure Blood Pressure [Left Arm] 179/85 H Blood Pressure Mean Blood Pressure Mean [Left Arm] 116 Pulse Oximetry 97 98 Oxygen Delivery Method Room Air Room Air Sepsis Recent Fever Within 48 Hours Sepsis New/Unexplained Change in Mental Status Sepsis Action Taken by Custodial Medications Current Medication List: was personally reviewed by me Laboratory Data Attestation: I reviewed the patient's lab results. 12/27/23 14:52 12/27/23 14:52 Lab Results 12/27/23 12/27/23 12/27/23 Range/Units 14:52 14:52 14:52 WBC 4.12 L (4.8-10.8) K/ul RBC 4.00 L (4.70-6.10) M/uL Hgb 11.6 L (14.0-18.0) g/dl Hct 35.3 L (42.0-52.0) % MCV 88.3 (80.0-100.0) fL MCH 29.0 (25.0-34.0) pg MCHC 32.9 (32.0-36.0) g/dL RDW Std Deviation 46.0 (36.4-46.3) fL RDW Coeff of Josh 14.3 (11.5-14.5) % Plt Count 95 L (130-400) K/uL MPV 12.4 (9.4-12.4) fL Immature Gran % (Auto) 0.7 % Neut % (Auto) 69.9 % Lymph % (Auto) 18.7 % [place] % (Auto) 7.8 % Eos % (Auto) 2.7 % Baso % (Auto) 0.2 % Neut # (Auto) 2.88 (1.40-6.50) K/uL Lymph # (Auto) 0.77 L (1.20-3.40) K/uL [place] # (Auto) 0.32 (0.11-0.59) K/uL Eos # (Auto) 0.11 (0.00-0.50) K/uL Baso # (Auto) 0.01 (0.00-0.20) K/uL Immature Gran # (Auto) 0.03 (0.01-0.20) K/uL Sodium 140 (136-145) mmol/L Potassium 3.0 L (3.5-5.1) mmol/L Chloride 108 H (98-107) mmol/L Carbon Dioxide 26 (21-32) mmol/L Anion Gap 6 (3-11) BUN 19 (6-23) mg/dl Creatinine 1.49 H (0.6-1.4) mg/dl Est Cr Clr Drug Dosing 54.0 ml/min eGFR 49.55 BUN/Creatinine Ratio 12.8 (10-20) Glucose 157 H (70-99(Fasting)) mg/dl Calcium 8.2 L (8.6-10.3) mg/dl Magnesium 1.4 L (1.7-2.4) mg/dl Total Bilirubin 0.5 (0.2-1.0) mg/dl AST 31 (13-39) U/L ALT 21 (7-52) U/L Alkaline Phosphatase 214 H (34-104) U/L Troponin I High Sens 42.4 H (0-20) pg/ml Total Protein 6.3 (6.0-8.3) gm/dl Albumin 2.9 L (3.4-5.0) gm/dl Globulin 3.4 (2.5-4.0) gm/dl Albumin/Globulin Ratio 0.9 (0.9-2) TSH 11.950 H (0.300-4.500) uIu/ml Free T4 1.06 (0.61-1.60) ng/dl Urine Color Urine Appearance (Clear) Urine pH (4.5-7.5) Ur Specific [place] (1.000-1.030) Urine Protein (Negative) Urine Glucose (UA) (Negative) Urine Ketones (Negative) Urine Blood (Negative) Urine Nitrite (Negative) Urine Bilirubin (Negative) Urine Urobilinogen (Negative) Ur Leukocyte Esterase (Negative) Urine WBC (Auto) (0-5) /hpf Urine RBC (Auto) (0-2) /hpf U Hyaline Cast (Auto) (0-2) /lpf U Epithel Cells (Auto) (0-2) /hpf Urine Bacteria (Auto) (None Seen) Anaplasma Smear See Comment Cancelled Babesia Smear See Comment Cancelled 12/27/23 12/27/23 Range/Units 16:53 17:00 WBC (4.8-10.8) K/ul RBC (4.70-6.10) M/uL Hgb (14.0-18.0) g/dl Hct (42.0-52.0) % MCV (80.0-100.0) fL MCH (25.0-34.0) pg MCHC (32.0-36.0) g/dL RDW Std Deviation (36.4-46.3) fL RDW Coeff of Josh (11.5-14.5) % Plt Count (130-400) K/uL MPV (9.4-12.4) fL Immature Gran % (Auto) % Neut % (Auto) % Lymph % (Auto) % [place] % (Auto) % Eos % (Auto) % Baso % (Auto) % Neut # (Auto) (1.40-6.50) K/uL Lymph # (Auto) (1.20-3.40) K/uL [place] # (Auto) (0.11-0.59) K/uL Eos # (Auto) (0.00-0.50) K/uL Baso # (Auto) (0.00-0.20) K/uL Immature Gran # (Auto) (0.01-0.20) K/uL Sodium (136-145) mmol/L Potassium (3.5-5.1) mmol/L Chloride (98-107) mmol/L Carbon Dioxide (21-32) mmol/L Anion Gap (3-11) BUN (6-23) mg/dl Creatinine (0.6-1.4) mg/dl Est Cr Clr Drug Dosing ml/min eGFR BUN/Creatinine Ratio (10-20) Glucose (70-99(Fasting)) mg/dl Calcium (8.6-10.3) mg/dl Magnesium (1.7-2.4) mg/dl Total Bilirubin (0.2-1.0) mg/dl AST (13-39) U/L ALT (7-52) U/L Alkaline Phosphatase (34-104) U/L Troponin I High Sens 42.6 H (0-20) pg/ml Total Protein (6.0-8.3) gm/dl Albumin (3.4-5.0) gm/dl Globulin (2.5-4.0) gm/dl Albumin/Globulin Ratio (0.9-2) TSH (0.300-4.500) uIu/ml Free T4 (0.61-1.60) ng/dl Urine Color Yellow Urine Appearance Clear (Clear) Urine pH 5.5 (4.5-7.5) Ur Specific [place] 1.016 (1.000-1.030) Urine Protein 2+ H (Negative) Urine Glucose (UA) 3+ H (Negative) Urine Ketones Negative (Negative) Urine Blood Negative (Negative) Urine Nitrite Negative (Negative) Urine Bilirubin Negative (Negative) Urine Urobilinogen Negative (Negative) Ur Leukocyte Esterase Negative (Negative) Urine WBC (Auto) 0-5 (0-5) /hpf Urine RBC (Auto) 0-2 (0-2) /hpf U Hyaline Cast (Auto) 0-2 (0-2) /lpf U Epithel Cells (Auto) 0-2 (0-2) /hpf Urine Bacteria (Auto) None Seen (None Seen) Anaplasma Smear Babesia Smear Administered Medications Discontinued Medications Sodium Chloride (Nss) 500 mls @ 999 mls/hr IV .Q31M ONE Stop: 12/27/23 16:24 Last Infusion: 12/27/23 18:34 Dose: Infused Documented By: Admin: 12/27/23 16:18 Dose: 999 mls/hr Documented By: CHRIST Magnesium Oxide (Magnesium Oxide 400 Mg Tab) 400 mg PO NOW STA Stop: 12/27/23 15:55 Last Admin: 12/27/23 16:20 Dose: 400 mg Documented By: CHRIST Potassium Chloride (Potassium Chloride Crtab 20 Meq Tabcr) 20 meq PO NOW STA Stop: 12/27/23 15:55 Last Admin: 12/27/23 16:20 Dose: 20 meq Documented By: CHRIST Potassium Chloride (Potassium Chloride Crtab 20 Meq Tabcr) 20 meq PO NOW STA Stop: 12/27/23 16:54 Last Admin: 12/27/23 18:32 Dose: 20 meq Documented By: CHRIST Imaging Data Radiologist's Impression: Chest X-Ray 12/27/23 14:44 XR chest 1V portable HISTORY: 73 years-old Male weakness COMPARISON: 09/02/2023 TECHNIQUE: AP view of the chest FINDINGS: Cardiac silhouette is enlarged. Median sternotomy. Pulmonary vascular congestion. Probable trace pleural effusions. No pneumothorax. Scattered bilateral pulmonary nodules redemonstrated. Mild subsegmental right basilar densities. IMPRESSION: 1. Cardiomegaly with pulmonary vascular congestion an trace pleural effusions. 2. Scattered pulmonary nodules redemonstrated. 3. Mild right basilar opacities may represent atelectasis versus pneumonitis. ACT 112: Negative or not required by law. The above report was generated using voice recognition software. It may contain grammatical, syntax or spelling errors. Electronically signed by: Patrick Mario M.D. 12/27/2023 3:04 PM Discharge Plan Visit Data Chief Complaint: Syncope Stated Complaint: SYNCOPE ED Provider: Amarjit Francisco Discharge Problem: Syncope, Anemia, Hypomagnesemia, Hypokalemia, Elevated troponin Patient Disposition: Admitted As Inpatient Condition: Fair Discharge Instructions Interventions: ED Discharge Assessment Last Done: 12/27/23 20:14 Discharge Problem: Syncope Qualifiers: Syncope type: unspecified Qualified Code(s): R55 - Syncope and collapse Anemia Qualifiers: Anemia type: unspecified type Qualified Code(s): D64.9 - Anemia, unspecified
--- NOTE | 2023-12-27 15:05 | XRay Report ---
XR chest 1V portable HISTORY: 73 years-old Male weakness COMPARISON: 09/02/2023 TECHNIQUE: AP view of the chest FINDINGS: Cardiac silhouette is enlarged. Median sternotomy. Pulmonary vascular congestion. Probable trace pleu ral effusions. No pneumothorax. Scattered bilateral pulmonary nodules redemonstrated. Mild subsegment al right basilar densities. IMPRESSION: 1. Cardiomegaly with pulmonary vascular congestion an trace pleural effusions. 2. Scattered pulmonary nodules redemonstrated. 3. Mild right basilar opacities may represent atelectasis versus pneumonitis. ACT 112: Negative or not required by law. The above report was generated using voice recognition software. It may contain grammatical, syntax o r spelling errors. Electronically signed by: Patrick Mario M.D. 12/27/2023 3:04 PM
[2023-12-27 15:11] LABS: Basophils # (auto) 0.01 K/uL (0.00-0.20); Basophils % (auto) 0.2 %; Eosinophils # (auto) 0.11 K/uL (0.00-0.50); Eosinophils % (auto) 2.7 %; Hematocrit (blood only) 35.3 % (42.0-52.0); Hemoglobin 11.6 g/dl (14.0-18.0); Immature Granulocytes # (auto) 0.03 K/uL (0.01-0.20); Immature Granulocytes % (auto) 0.7 %; Lymphocytes # (auto) 0.77 K/uL (1.20-3.40); Lymphocytes % (auto) 18.7 %; Mean Corpuscular Hgb Conc 32.9 g/dL (32.0-36.0); Mean Corpuscular Volume 88.3 fL (80.0-100.0); Mean Platelet Volume 12.4 fL (9.4-12.4); Monocytes # (auto) 0.32 K/uL (0.11-0.59); Monocytes % (auto) 7.8 %; Neutrophils # (auto) 2.88 K/uL (1.40-6.50); Neutrophils % (auto) 69.9 %; Platelet Count 95 K/uL (130-400); RDW Coefficient of Variation 14.3 % (11.5-14.5); White Blood Count 4.12 K/ul (4.8-10.8)
[2023-12-27 15:26] LABS: Albumin Globulin Ratio 0.9 (0.9-2); Albumin Level 2.9 gm/dl (3.4-5.0); BUN Creatinine Ratio 12.8 (10-20); Bilirubin,Total 0.5 mg/dl (0.2-1.0); Calcium 8.2 mg/dl (8.6-10.3); Globulin 3.4 gm/dl (2.5-4.0); Magnesium 1.4 mg/dl (1.7-2.4); Total Protein 6.3 gm/dl (6.0-8.3)
[2023-12-27 15:32] LABS: Troponin I High Sensitivity 42.4 pg/ml (0-20)
[2023-12-27 15:41] LABS: Thyroid Stimulating Hormone 11.95 uIu/ml (0.300-4.500)
[2023-12-27 16:16] LABS: T4 Free Thyroxine 1.06 ng/dl (0.61-1.60)
[2023-12-27] MEDS: SODIUM CHLORIDE 0.9% 500 ML IV ONE (16:18)
[2023-12-27] MEDS: MAGNESIUM OXIDE 400 MG TAB PO STA (16:20)
[2023-12-27] MEDS: POTASSIUM CHLORIDE CRTAB 20 MEQ TABCR PO STA ×2 (16:20→18:32)
--- NOTE | 2023-12-27 16:54 | History & Physical Report ---
Date of Service December 27, 2023 Assessment & Plan (1) Syncope: Plan: Syncope ? Vasovagal syncope with bowel movement/diarrhea worsened by volume contraction and hypomagnesemia/hypokalemia Patient was incontinent of stool, but did not have tongue biting shaking/je rking or postictal state to suggest seizure Potassium 3.0, oral potassium given for repletion Creatinine baseline is approximately 1.36, although ranged recently up to 1.65. Upper range of patient's normal with a normal ratio Hypomagnesemic at 1.4, repleted p.o., critical fluid shortage at time of admission Troponin 42.4, history of chronic mild troponin elevations. 2-hour repeat is pending patient is chest pain-free TSH 11.9, free T4 is normal suggestive of subclinical hypothyroidism EKG: Sinus bradycardia, nonspecific intraventricular conduction delay. No territorial ST/T wave changes, low amplitude T waves with hypokalemia Last echo 06/2023: LVEF 55 to 60%, no definite wall motion abnormalities, LV SF normal. Mild concentric LVH S/p 500 cc NSS, continue to encourage orals in setting of critical IV fluid shortage Patient has not had any recent fever chills sweats cough URI symptoms abdominal pain dysuria or diarrhea/constipation. His episode today was very unusual for him and associated with liquid stool which she could not stop, notes he has not had any preceding diarrheal symptoms in the past week. Did not eat any foods he thinks may have caused an upset stomach, and has not had diarrhea since. If recurrent will test for C. difficile/stool PCR (2) Anemia: Plan: History of anemia Chronic anemia generally ranging 810. Hemoglobin uptrending at time of admission 11.6? Uptrended versus hemoconcentrated No active bleeding Trend daily, no indication for transfusion at this time (3) CAD (coronary artery disease): Plan: CAD/A-fib/hypertension Troponin mildly elevated without territorial ST segment changes on EKG. No chest pain. Did have syncope preceding admission Carvedilol continued Suspect demand ischemia with volume contraction Echo pending No hypoglycemia on admission (4) Type 2 diabetes mellitus: Plan: Type II DMID Home Lantus 44 units continued with SSI Goal BSG [id number] SSI added while inpatient, CF 20 ratio 10 Left foot DFI With history of MRSA bacteremia Patient completed outpatient course of antibiotics last 08/2023 Left foot s/p hallux revision, site clean dry well-healed and without signs of superimposed infection (5) Sacral decubitus ulcer, stage III: Plan: Sacral wound Stage III sacral wound present on admission Continue routine wound care No leukocytosis, does not appear acutely infected (6) CKD (chronic kidney disease): Plan: CKD Creatinine baseline approximately 1.36, but recently up to 1.6 Creatinine on admission 1.36 Trend daily Entresto, Jardiance, metformin, Lasix all held after prior discharge Plan Chronic stable issues: Depression/anxiety: Continue sertraline. No hyponatremia/SIADH on admission Disposition: M/T due to elevated troponin and syncope CODE STATUS: Full code Diet: Heart healthy/DM2 History of Present Illness Primary Care Provider: Elmer Fraire MD Cody is a 73-year-old male with a past medical history of DM2, SVT, A-fib, peripheral vascular disease, CKD last discharged from the hospital 09/16/2023 after an admission for acute renal failure in the setting of MRSA bacteremia/antibiotic use and multiple renally active medications. Required transient dialysis at that time, subsequently improved and dialysis catheter was removed. He presents to the emergency department 12/26 after he was in the wound center to have a sacral wound reevaluated but had a feeling of hunger and discomfort in his abdomen and then while getting out of the vehicle had a sudden unexpected bowel movement, became lightheaded and dizzy, and syncopized. Per bystanders was out for a short period of time which was not thought to be more than a minute. No chest pain/chest pressure/diaphoresis/head strike/shaking activity. Reportedly came back to baseline relatively quickly and did not appear postictal, however initial blood pressure was low with 90 systolic which was back to baseline at time of ER evaluation. Cody seen at bedside. He reports that he has generally felt well in the last week. He has not any recent illnesses and denies fever chills sweats abdominal pain nausea/vomiting dysuria or unusual food intake. He reports he felt otherwise completely in his normal state of health when he went to get out of the car and had a sudden liquid bowel movement. Stools are normally formed, but had a liquid incontinent bowel movement and a feeling of lightheadedness and subsequently passed out. He reports that he was only out for a minute or 2 per the people he was with and while he was a little disoriented after felt he was back to his normal mentation within just a few minutes. Did not have any focal weakness. Subsequently has not had any bowel movements/diarrhea, does not have any thomas pain and no nausea or vomiting. Bowel movement was brown, no blood/melena. He reports he did not hit his head. Currently feels hungry, and at his normal state of health. Medical History: Reviewed Medications: Reviewed Surgical History: Reviewed Family history: Reviewed Allergies: Reviewed Social History: Reviewed Code Status: Full Allergies Allergy/AdvReac Type Severity Reaction Status Date / Time cat dander Allergy Intermediate CONGESTION Verified 12/19/23 14:49 Home Medications Medication Instructions Recorded Confirmed Type amiodarone 200 mg tablet 200 mg PO DAILY 08/05/23 12/27/23 History atorvastatin 80 mg tablet (Lipitor) 80 mg PO UD 08/05/23 12/27/23 History clopidogrel 75 mg tablet 75 mg PO UD 08/05/23 12/27/23 History sertraline 25 mg tablet 75 mg PO DAILY 08/05/23 12/27/23 History Saccharomyces boulardii 250 mg 250 mg PO TID 08/31/23 12/27/23 History capsule (Florastor) protein supplement 1 ea PO DAILY PRN Other 08/31/23 12/27/23 History amlodipine 2.5 mg tablet 5 mg (2 x 2.5 mg) PO DAILY #0 tabs 09/15/23 12/27/23 Rx gabapentin 100 mg capsule 100 mg PO DAILY 12/05/23 12/27/23 History carvedilol 3.125 mg tablet 25 mg PO UD 12/27/23 12/27/23 History empagliflozin 25 mg tablet 25 mg PO DAILY 12/27/23 12/27/23 History (Jardiance) furosemide 20 mg PO DAILY 12/27/23 12/27/23 History hydralazine 25 mg tablet 25 mg PO TID 12/27/23 12/27/23 History insulin glargine 100 unit/mL (3 44 unit subcut UD 12/27/23 12/27/23 History mL) subcutaneous pen (Lantus Solostar U-100 Insulin) losartan 100 mg tablet 100 mg PO DAILY 12/27/23 12/27/23 History pantoprazole 40 mg tablet,delayed 40 mg PO DAILY 12/27/23 12/27/23 History release (Protonix) rivaroxaban 20 mg tablet (Xarelto) 20 mg PO DAILY 12/27/23 12/27/23 History sildenafil 100 mg tablet 100 mg PO DAILY PRN Erectile 12/27/23 12/27/23 History Dysfunction Past Med/Surg History Problem List CKD (chronic kidney disease) Sacral decubitus ulcer, stage III Syncope Unresponsive episode (Acute) Pressure injury of coccygeal region, stage 3 (Acute) DM (diabetes mellitus) Cellulitis in diabetic foot (Acute) Anemia (Acute) Diabetic infection of left foot (Acute) Diabetic infection of left foot Wound infection Surgical wound, non healing Liver mass Hyponatremia Supraventricular tachycardia Atrial fibrillation Multifocal pneumonia (Acute) Sepsis (Acute) Peripheral arterial disease with history of revascularization Ulcer of toe Diabetic foot ulcer Acute kidney injury superimposed on CKD 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 Anxiety (Acute) Anemia (Acute) hx Chest pain (Acute) DVT prophylaxis Arterial occlusion, lower extremity (Acute) Medical History Chronic pain Thrombocytopenia Acute renal failure Osteomyelitis of foot, left, acute MRSA bacteremia Heart failure with ejection fraction improved from reduced range to preserved range GIB (gastrointestinal bleeding) History of atrial fibrillation CAD (coronary artery disease) s/p CABG x 2 vessel June 2021 Acute HFrEF (heart failure with reduced ejection fraction) Follows with [facility] EF 50-55% per 05/2022 ECHO Cardiomyopathy Dyslipidemia Tobacco abuse smoke-12/day Atherosclerosis of artery of left lower extremity s/p left leg angiogram procedure with [employer] of proximal vein bypass 05/27/23 s/p left leg femoral artery to posterior tibial artery reverse saphenous vein bypass done at [facility] 02/2023 s/p left SFA and popliteal stents History of anemia History of anxiety History of alcohol abuse started 1965, quit 1999 Hx of drug abuse started 1965, quit 1999 "used every drug known to man">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, stayed in for 13 years IV drug abuse hx-quit in 1981 History of hepatitis B hx IV drug use Hepatitis C virus has had since the late 1979's>no tx, "never had any trouble with it" Heart failure with mid-range ejection fraction Follows with [facility] EF 50-55% per 05/2022 ECHO Type 2 diabetes mellitus HTN (hypertension) Surgical History History of amputation of great toe S/P CABG x 2 ~2021, went to ER w/"anxiety," found to be in congestive heart failure, had more cardiac testing, sent for f/u w/[facility] cardio surgeon, done @[facility]; f/u dr. mckeon Hx of cardiac catheterization 06/2021 [facility] History of open reduction and internal fixation (ORIF) procedure rt elbow and lt wrist>hardware intact Hx of colonoscopy History of left knee surgery 1988-tibial plateau reconstruction History of eye surgery retina History of cataract extraction rt/lt Social History Smoking Status: Current every day smoker Tobacco Type: Cigarettes Cigarettes Per Day: 10; Second Hand Exposure: No; Do You Dip or Chew Tobacco: No; Hx Alcohol Use: No Hx Substance Use: Yes Last Used Substance: Unknown Last Used Substance Other:: quit 1999-stated "used every drug known to man" Substance Use Type Other:: IV Drugs. Preferred Language: Guyanese Communication Ability: Unable Senior Controls Analyst Required: No Beliefs That Will Affect Care: None Current Living Situation: Other Current Living Situation Comment: Currently living at home current occupational status: disabled How many Children do You have: 1 other: Has a caregiver to assist with care Feels Safe at Home: Yes Diet: diabetic and ideal protein Assistive Devices: Walker Physical Exam Physical Exam: General: A&Ox3. NAD. Cooperative. HEENT: Atraumatic, normocephalic. Pulm: CTAB A&P. -wheezes, -rales, -rhonchi. Symmetrical chest rise. No increased work of breathing. No respiratory distress. Cardiac: RRR, +sm. Radial pulses intact and symmetrical. Abdominal: Nontender, nondistended, soft. BS present. Sacrum: Stage III sacral ulcer without surrounding erythema/warmth/tenderness, no signs of superimposed infection Extremities: Left lower extremity s/p revision of the first toe. Foot is without erythema warmth or tenderness; no signs of infection Results & Data Results & Data Vital Signs (Past 12 Hours) Vital Signs Temp Pulse Pulse Resp BP BP Pulse Ox 12/27/23 16:30 58 L 24 179/85 H 98 12/27/23 14:54 97 12/27/23 14:39 53 L 12/27/23 14:34 12/27/23 14:34 36.4 C L 53 L 15 150/79 H 94 O2 Del Method 12/27/23 16:30 Room Air 12/27/23 14:54 Room Air 12/27/23 14:39 12/27/23 14:34 Room Air 12/27/23 14:34 Room Air PG Care Time/CCT Total # of Minutes Spent Total Time Spent with Patient: Total time spent is greater than 50% in coordination of care (as documented) at patient's floor/unit and/or counseling patient: Coding Level of Care Code 59605 INT INP/OBS CARE MIN Diagnoses Syncope R55 Anemia D64.9 Anemia type: unspecified type CAD (coronary artery disease) I25.10 Type 2 diabetes mellitus E11.9 Sacral decubitus ulcer, stage III L89.153 CKD (chronic kidney disease) N18.9 (2) Anemia Anemia type: unspecified type Qualified Code(s): D64.9 - Anemia, unspecified
[2023-12-27 17:15] LABS: Appearance Urine Clear (Clear); Bacteria Urine Automated None Seen (None Seen); Bilirubin Urine Negative (Negative); Blood Urine Negative (Negative); Cast Urine Automated 0-2 /lpf (0-2); Color Urine Yellow; Epithelial Cell Urine Auto 0-2 /hpf (0-2); Glucose Urine UA 3+ (Negative); Ketones Urine Negative (Negative); Leukocyte Esterase Urine Negative (Negative); Nitrite Urine Negative (Negative); Protein Urine 2+ (Negative); RBC Urine Automated 0-2 /hpf (0-2); Specific Gravity Urine 1.016 (1.000-1.030); Urobilinogen Urine Negative (Negative); WBC Urine Automated 0-5 /hpf (0-5); pH Urine 5.5 (4.5-7.5)
[2023-12-27] MEDS ORDERED: DEXTROSE 50% 50 ML SYRINGE IV PRN (17:27)
[2023-12-27] MEDS ORDERED: GLUCAGON FOR INJ 1 MG VIAL SQ PRN (17:27)
[2023-12-27] MEDS ORDERED: GLUCOSE 10 TAB/TUBE PO PRN (17:27)
[2023-12-27] MEDS ORDERED: GLUCOSE 40% GEL 15 GM TUBE PO PRN (17:27)
--- NOTE | 2023-12-27 18:18 | Electrocardiogram Report ---
Test Reason : Blood Pressure : */* mmHG Vent. Rate : 51 BPM Atrial Rate : 51 BPM P-R Int : 154 ms QRS Dur : 130 ms QT Int : 596 ms P-R-T Axes : 55 -29 140 degrees QTcB Int : 549 ms Sinus bradycardia Non-specific intra-ventricular conduction block Confirmed by Elmer Ring ([id number] on 12/27/2023 6:18:11 PM Referred By: REFERRED SELF Confirmed By: Elmer Ring
[2023-12-27] MEDS ORDERED: NON-FORMULARY MEDICATION (Protein Supplement Liquid) PO PRN (21:11)
[2023-12-27] MEDS ORDERED: NON-FORMULARY MEDICATION (Sildenafil 100 mg tablet) PO PRN (21:11)
--- OUTSIDE RECORDS SUMMARY | 2023-12-27 22:08 | External Medical Summary | Continuity of Care Document ---
Author Name Unknown Organization [facility] [id number] [place] [id number] Care Team Providers Care Consulting Engineer Name Role Phone Elmer Fraire Primary Care Physician [phone] Encounter [facility] [id number] Date(s): 12/19/23 - 12/19/23 [facility] [place] [address] Medical [facility] [address] [place] [id number] [phone] Encounter Diagnosis Body mass index [BMI] 27.0-27.9, adult(Discharge Diagnosis) - 12/19/23 Fatigue(Discharge Diagnosis) - 12/19/23 HTN (hypertension)(Discharge Diagnosis) - 12/19/23 Cardiomyopathy(Discharge Diagnosis) - 12/21/23 Discharge Disposition: Home or Self Care Attending Physician: MD Fraire Christopher Allergies, Adverse Reactions, Alerts Substance Criticality Severity Reaction Reaction Severity Status Cats Nasal congestion Act sid Grass Nasal congestion Act sid Influenza Virus Vaccine Unable to assess criticality Mild chills Active Assessment and Plan Extracted from: Title:FCM - Polypharmacy post discharge Author:Randy joiner MD, Christopher Date:12/19/23 1.Fatigue Acute or chronic conditionw/ a threat to life/limb Goal: improve symptoms Data:obtain pinnaclerecords, TSH,CBC,CMP, Mg,A1c Plan: - multiple potential etiologies for new symptom of fatigue including deconditioning, sequelae of recent disease - most concerning, however, is that the patient has considerable polypharmacy - discontinue DOAC (apixaban) in the setting of rivaroxaban use (changed due to cost) - discontinue carvedilol in the setting of metoprolol use - discontinue losartan in the setting of Entresto use 2.HTN (hypertension) Chronic condition with severe exacerbation/progression/side effects Goal: <140/85 Data: labs as above Plan: - medication regimen nonadherence, likely secondary to polypharmacy - start taking hydralazine TID, not daily - start taking entresto BID,not daily - precautions re: hypotension and ongoing monitoring - short term follow up in 2 wks to ensure stability 3.Cardiomyopathy as above, follow up with cardiology Time:Total time spent with this patient on day of evaluation including chart review, ordering, education and coordination of care elements: 65 minutes Immunizations Given and Recorded Vaccine Date Status Refusal Reason tetanus/diphtheria/pertuss, acel (Tdap) 1 05/15/19 Recorded pneumococcal 23-valent vaccine 05/02/19 Given influenza virus vaccine, inactivated 02/05/19 Give n pneumococcal 13-valent vaccine 2, 3 04/05/18 Recor ded 1Result Comment: 2020-08-21: Historical information-source unspecified 2Location History: PCV 13 3Result Comment: 2018-10-12: Historical information-source unspecified Medications amiodarone 200 mg oral tablet Start: 12/19/23 4:05:00 PM EDT, 1 tab, PO, Daily Start Date: 12/19/23 Status: Ordered amLODIPine 5 mg oral tablet Start: 06/24/23 4:22:00 PM EDT, 1 tab, PO, Daily, Disp# 90 tab, Refills: 4, Pharmacy: [facility] Start Date: 06/24/23 Stop Date: 09/16/24 Status: Ordered atorvastatin 80 mg oral tablet Start: 06/17/22 12:11:00 PM EDT, 1 tab, PO, Daily, Disp# 90 tab, Refills: 3, Pharmacy: [facility] Start Date: 06/17/22 Stop Date: 06/12/23 Status: Ordered BD needle Ultra-Fine Pen Zulay 32G x 4mm Start: 04/20/23 5:00:00 PM EST, See Instructions, Disp# 100 each, Use as directed with insulin. Max 2/day. Use new pen needle with each injection. Start Date: 04/20/23 Status: Ordered BD needle Ultra-Fine Pen Zulay 32G x 4mm Start: 07/16/22 10:06:00 AM EDT, See Instructions, Disp# 100 each, Use as directed with insulin. Max4/day. Use new pen needle with each injection., Pharmacy: [facility] Start Date: 07/16/22 Status: Ordered clopidogrel 75 mg oral tablet Start: 06/17/22 12:10:00 PM EDT, 1 tab, PO, Daily, Disp# 90 tab, Refills: 3, Pharmacy: [facility] [address] Start Date: 06/17/22 Stop Date: 06/12/23 Status: Ordered Entresto 24 mg-26 mg oral tablet Start: 02/23/23 2:53:00 PM EST, 2 tab, PO, bid, Disp# 180 tab, Refills: 3, Pharmacy: [facility] Start Date: 02/23/23 Status: Ordered gabapentin 100 mg oral capsule Start: 12/02/23 3:02:00 AM EDT, 1 cap, PO, Daily, Disp# 90 cap, Refills: 4, Pharmacy: [facility] Start Date: 12/02/23 Stop Date: 02/24/25 Status: Ordered hydrALAZINE 25 mg oral tablet Start: 12/19/23 4:06:00 PM EDT, 1 tab, PO, tid Start Date: 12/19/23 Status: Ordered Jardiance 25 mg oral tablet Start: 11/23/23 9:40:00 AM EDT, 1 tab, PO, Daily, Disp# 90 tab, Refills: 2, Pharmacy: [facility] Start Date: 11/23/23 Stop Date: 08/19/24 Status: Ordered Lantus Solostar Pen 100 units/mL subcutaneous solution Start: 03/01/23 9:39:00 AM EST, 50 unit =, subQ, Daily, Disp# 15 mL, Refills: 2, Brand Medically Necessary, Pharmacy: [facility] Start Date: 03/01/23 Status: Ordered Lasix 20 mg oral tablet Start: 06/24/23 4:22:00 PM EDT, 1 tab, PO, Daily, Disp# 90 tab, Refills: 4, Pharmacy: [facility] Start Date: 06/24/23 Stop Date: 09/16/24 Status: Ordered One Touch Delica Plus (30G) Lancets Start: 04/20/23 5:00:00 PM EST, See Instructions, Disp# 100 each, check qAM and with meals, and as needed for symptoms Start Date: 04/20/23 Status: Ordered One Touch Ultra 2 Glucose Monitor Start: 04/20/23 4:59:00 PM EST, See Instructions, Disp# 1 each, check qAM and with meals, and as needed for symptoms Start Date: 04/20/23 Status: Ordered One Touch Ultra Test Strips 100 ct Start: 04/20/23 4:59:00 PM EST, See Instructions, Disp# 100 each, check qAM and with meals, and as needed for symptoms Start Date: 04/20/23 Status: Ordered pantoprazole 40 mg oral delayed release tablet Start: 03/18/23 3:12:00 PM EST, 1 tab, PO, Daily Start Date: 03/18/23 Status: Ordered sertraline 50 mg oral tablet Start: 12/20/22 1:48:00 PM EDT, 1.5 tab, PO, Daily, Disp# 135 tab, Refills: 3, [facility] Start Date: 12/20/22 Stop Date: 12/15/23 Status: Ordered spironolactone 25 mg oral tablet Start: 10/26/22 4:11:00 PM EDT, 1 tab, PO, Daily, Disp# 90 tab, Refills: 3, [facility] Start Date: 10/26/22 Stop Date: 10/21/23 Status: Ordered Xarelto 20 mg oral tablet Start: 12/19/23 4:04:00 PM EDT Start Date: 12/19/23 Status: Ordered Mental Status 12/19/23 Barriers to Learning one year None evide nt Mandatory Health Literacy Documentation Yes Health Literacy Communication Barriers N ever Primary Language Beninese Problem List Condition Confirmation Course Effective Dates Status H ealth Status Informant Atherosclerosis Confirmed Active Cardiomyopathy Confirmed Active Chronic [...] mellitus with chronic kidney disease Confirmed Active Hx of atrial fibrillation, no current medication Confirmed Active History of cataract Confirmed Active Status post amputation of great toe Confirmed Active S/P amputation of lesser toe Confirmed Active S/P femoral-tibial bypass Confirmed Active History of dental problems 2 Confirmed Active S/P CABG (coronary artery bypass graft) Confirmed Active History of non-ST elevation myocardial infarction (NSTEMI) Confirmed Active History of substance use Confirmed Active Hyperlipidemia Confirmed Active HTN (hypertension) Confirmed Active Hyponatremia Confirmed Active Iron deficiency anemia Confirmed Active Mild major depression, single episode 3 Confirmed Active Peripheral artery disease Confirmed Active [...] Effective Dates Health Status Clinical Service Informant Body mass index [BMI] 27.0-27.9, adult Discharge Diagnosis 12/19/23 Non-Specified HTN (hypertension) Discharge Diagnosis 12/19/23 Non-Specified Fatigue Discharge Diagnosis 12/19/23 Non-Specified Cardiomyopathy Discharge Diagnosis 12/21/23 Non-Specified Procedures Procedure Date Related Diagnosis Body Site Status Amputation of left great toe 07/15/23 Completed Amputation of left 2nd toe, debridement toes 1, 3, and 4 06/16/23 Com pleted LLE Angiogram w/ SWIMMING POOL SALESPERSON of bypass 05/27/23 Completed LLE Angiogram w/ pulse spray thrombolysis SFA and Pop, SWIMMING POOL SALESPERSON stent SFA and Pop 06/01/22 Completed Doppler [...] Reduced cardiac output via thermodilution. 5performed at [facility] Extensive left lower extremity arterial atherosclerosis. [...] Most recent to oldest [Reference Range]: 1 Height 180.5 cm (12/19/23 4:07 PM) Patient Weight 89.6 kg (12/19/23 4:07 PM) Body Mass Index 27.5 kg/m2 (12/19/23 4:07 PM) Temperature [36.5-37.9 DegC] 36.3 DegC *LOW* (12/19/23 4:07 PM) Heart Rate 79 bpm (12/19/23 4:07 PM) Respiratory Rate 16 br/min (12/19/23 4:07 PM) Blood Pressure 196/98mmHg (12/19/23 4:07 PM) Cuff Pulse Pressure 98 mmHg (12/19/23 4:07 PM) Social History Social History Type Response Tobacco Current every day sm oker, Cigarettes, 5 per day. 40 year(s). Total pack years: 50. 1 Smoking Status Current every day he suzanne smoker Sex Male Sex Representation Male (finding) 1in the Am Implantable Device List Procedure Provider Procedure Date Device Type Site Unknown Unknown 03/15/23 Unknown Unknown Device Identifier Serial Number Lot or Batch Number Manufacturing Date Expiration Date Distinct Identification Code MRI Safety Implantable Status Assigning Authority Unknown Unknown [id number] Unknown 12/25/26 Unknown Unknown Active Unknown FCM Outpt Note * MD Fraire Christopher: PERFORM Event Display: FCM Outpt Note Authored Date: Assessment/Plan 1.Fatigue Acute or chronic conditionw/ a threat to life/limb Goal: improve symptoms Data:obtain pinnaclerecords, TSH,CBC,CMP, Mg,A1c Plan: - multiple potential etiologies for new symptom of fatigue including deconditioning, sequelae of recent disease - most concerning, however, is that the patient has considerable polypharmacy - discontinue DOAC (apixaban) in the setting of rivaroxaban use (changed due to cost) - discontinue carvedilol in the setting of metoprolol use - discontinue losartan in the setting of Entresto use 2.HTN (hypertension) Chronic condition with severe exacerbation/progression/side effects Goal: <140/85 Data: labs as above Plan: - medication regimen nonadherence, likely secondary to polypharmacy - start taking hydralazine TID, not daily - start taking entresto BID,not daily - precautions re: hypotension and ongoing monitoring - short term follow up in 2 wks to ensure stability 3.Cardiomyopathy as above, follow up with cardiology Time:Total time spent with this patient on day of evaluation including chart review, ordering, education and coordination of care elements: 65 minutes Chief Complaint 1 month f/u History of Present Illness Fatigue, diffuse, new in the setting of uncontrolled HTN, recent hospitalizationin [place] - fatigue/malaise following hospitalization - accompanied by some feeling of instability without fall or dizziness - especially with endurance/ongoing activity - eating well and appetite is stable, working on increased protein intake Sacral wound - following weekly with wound care and doing home dressing changes, tolerating well - per patient, has been healing according to wound care without issues Physical Exam Vitals & Measurements T:36.3C HR:79(Monitored) RR:16 BP:196/98 SpO2:98% HT:180.5cm WT:89.600kg(Dosing) WT:89.6kg BMI:27.5 PHQ2 Data(Data Documented on:12/19/2023 16:06) Emotional health assessment NEGATIVE General: _Alert and oriented, No acute distress Cardiovascular: _Normal rate, Regular rhythm, No murmur, No gallop. Respiratory: _Lungs are clear to auscultation, Respirations are non-labored, Breath sounds are equal Psych: Mood-affect congruence. Reports no SI/HI. Speech is of normal pace and content REpeat BP was 130/82 Problem List/Past Medical History Ongoing Atherosclerosis Cardiomyopathy Chronic hepatitis C Chronic kidney disease, stage 3b Chronic lower back pain Chronic obstructive lung disease (disorder) Chronic systolic (congestive) heart failure Chronic total occlusion of artery of the extremities Coronary artery disease Diabetes mellitus with chronic kidney disease Erectile dysfunction of organic origin Floaters History of cataract History of dental problems History of non-ST elevation myocardial infarction (NSTEMI) History of substance use HTN (hypertension) Hx of atrial fibrillation, no current medication Hyperlipidemia Hyponatremia Iron deficiency anemia Leg cramp Mild major depression, single episode Other stimulant dependence, in remission Peripheral artery disease Pulmonary hypertension Retinopathy of left eye S/P amputation of lesser toe S/P CABG (coronary artery bypass graft) S/P femoral-tibial bypass Sequelae of nontraumatic subarachnoid hemorrhage Smokes tobacco daily Status post amputation of great toe Type 2 diabetes mellitus with diabetic peripheral angiopathy without gangrene Resolved Critical limb ischemia of left lower extremity Gangrene of toe Hepatitis B Type 2 diabetes mellitus with diabetic peripheral angiopathy with gangrene Procedure/Surgical History Amputation of left great toe| Service Date: 4Amputation of left 2nd toe, debridementtoes 1, 3, and 4| Service Date: 06/16/2023LLE Angiogram w/ SWIMMING POOL SALESPERSON of bypass| Service Date: 05/27/2023LLE Angiogram w/ pulse spray thrombolysis SFA and Pop, SWIMMING POOL SALESPERSON stent SFA and Pop| Service Date: 3Doppler ultrasonography of venous structure of left lower limb| Service Date: 3Duplex scan of left lower limb arteries| Service Date: 3Chest X-ray| Service Date: 2Cardiac catheterization| Service Date: 07/08/2021left lower extremity angio with insertion of TPA catheter| Service Date: 10/23/2018Assessment of arterial blood flow using ultrasound| Service Date: 10/22/2018Duplex ultrasound| Service Date: 09/15/2018Plain x-ray left toe Medications amiodarone(amiodarone 200 mg oral tablet), 200 mg= 1 tab, PO, Daily amLODIPine(amLODIPine 5 mg oral tablet), 5 mg= 1 tab, PO, Daily, 4 refills atorvastatin(atorvastatin 80 mg oral tablet), 80 mg= 1 tab, PO, Daily, 3 refills clopidogrel(clopidogrel 75 mg oral tablet), 75 mg= 1 tab, PO, Daily, 3 refills diabetes supplies(One Touch Ultra 2 Glucose Monitor), See Instructions diabetes supplies(One Touch Ultra Test Strips 100 ct), See Instructions diabetes supplies(One Touch Delica Plus (30G) Lancets), See Instructions empagliflozin(Jardiance 25 mg oral tablet), 25 mg= 1 tab, PO, Daily, 2 refills furosemide(Lasix 20 mg oral tablet), 20 mg= 1 tab, PO, Daily, 4 refills gabapentin(gabapentin 100 mg oral capsule), 100 mg= 1 cap, PO, Daily, 4 refills hydrALAZINE(hydrALAZINE 25 mg oral tablet), 25 mg= 1 tab, PO, tid insulin glargine(Lantus Solostar Pen 100 units/mL subcutaneous solution), 50 unit, subQ, Daily pantoprazole(pantoprazole 40 mg oral delayed release tablet), 40 mg= 1 tab, PO, Daily rivaroxaban(Xarelto 20 mg oral tablet) sacubitril-valsartan(Entresto 24 mg-26 mg oral tablet), 2 tab, PO, bid, 3 refills sertraline(sertraline 50 mg oral tablet), 75 mg= 1.5 tab, PO, Daily, 3 refills spironolactone(spironolactone 25 mg oral tablet), 25 mg= 1 tab, PO, Daily, 3 refills syringe needles(BD needle Ultra-Fine Pen Zulay 32G x 4mm), See Instructions syringe needles(BD needle Ultra-Fine Pen Zulay 32G x 4mm), See Instructions Allergies Influenza Virus Vaccine (Mild)chills CatsNasal congestion GrassNasal congestion Social History Smoking Status Current every day heavy smoker Alcohol - High Risk Substance Abuse - Denies Substance Abuse Use:Past Type:Cocaine, Marijuana Tobacco - High Risk Use:Current every day smoker Type:Cigarettes Tobacco use per day:5 Number of years:40 Total pack years:50 - Comments: in the Am Immunizations Vaccine Date Status tetanus/diphtheria/pertuss, acel (Tdap) 05/15/2019 Recorded Comments : 2020-08-21: Historical information-source unspecified pneumococcal 23-valent vaccine 05/02/2019 Given influenza virus vaccine, inactivated 02/05/2019 Given pneumococcal 13-valent vaccine 04/05/2018 Recorded Comments : PCV 13 2018-10-12: Historical information-source unspecified Recommendations Health Maintenance Pending(in the next year) OverDue Medicare Annual Wellness Visit due10/22/22and every 1year Due Adult COVID-19 Vaccination due12/20/23Unknown Frequency Diabetic Eye Exam due12/20/23Unknown Frequency Falls Plan of Care due12/20/23Unknown Frequency Shingles Vaccine due12/20/23One-time only Due In Future Adult Social Determinants of Health Screening not due until03/17/24and every 366day Diabetes Management A1c not due until04/25/24and every 366day Satisfied(in the past 1 year) Satisfied Body Mass Index on12/19/23.Satisfied by LOUISE Linares [facility] A1c on04/25/23.Satisfied by Contributor_system, [employer] Electronic Signature on File Electronically Reviewed/Signed by: Elmer Fraire MD Author Signature Dt/Tm:12/20/2023 10:24 PM Department of Family Medicine Patient Care team information Care Team Personnel Name: MICHAEL Pineda Terra L Position: Nurse Pract - Vascular Surg Member Role: Lifetime Relationship Address: [address] [place] [address] [place] Name: Meet Buenrostro Todd Position: Pharmacist Schedule II Member Role: Pharmacy - Lifetime Address: [address] [place] [address] [place] Name: MD Fraire Christopher Position: Physician - Family Med Member Role: Primary Care Provider Address: [address] [facility] [address] [place] [address] [place] Name: JUSTUS Pina Lynn Position: Physician Metalsmith Apprentice Exempt - Vasc Surg Member Role: Lifetime Relationship Address: [address] [facility] [address] [place] [address] [place]"
--- OUTSIDE RECORDS SUMMARY | 2023-12-27 22:08 | External Medical Summary | Continuity of Care Document ---
Author Name Unknown Organization [facility] [address] [place] [id number] Care Team Providers Care Horse Trainer Name Role Phone Elmer Fraire Primary Care Physician [phone] Encounter [facility] [id number] Date(s): 11/18/23 - 11/18/23 [facility] [address] Medical [facility] [address] [place] [address] [phone] Encounter Diagnosis Sacral decubitus ulcer(Discharge Diagnosis) - 11/18/23 Discharge Disposition: Home or Self Care Attending Physician: MD Fraire Christopher Allergies, Adverse Reactions, Alerts Substance Criticality Severity Reaction Reaction Severity Status Cats Nasal congestion Act sid Grass Nasal congestion Act sid Influenza Virus Vaccine Unable to assess criticality Mild chills Active Immunizations Given and Recorded Vaccine Date Status Refusal Reason tetanus/diphtheria/pertuss, acel (Tdap) 1 05/15/19 Recorded pneumococcal 23-valent vaccine 05/02/19 Given influenza virus vaccine, inactivated 02/05/19 Give n pneumococcal 13-valent vaccine 2, 3 04/05/18 Recor ded 1Result Comment: 2020-08-21: Historical information-source unspecified 2Location History: PCV 13 3Result Comment: 2018-10-12: Historical information-source unspecified Medications Aleve Start: 05/16/23 12:42:00 PM EDT Start Date: 05/16/23 Status: Ordered amLODIPine 5 mg oral tablet Start: 06/24/23 4:22:00 PM EDT, 1 tab, PO, Daily, Disp# 90 tab, Refills: 4, Pharmacy: [facility] Start Date: 06/24/23 Stop Date: 09/16/24 Status: Ordered atorvastatin 80 mg oral tablet Start: 06/17/22 12:11:00 PM EDT, 1 tab, PO, Daily, Disp# 90 tab, Refills: 3, Pharmacy: [facility] Start Date: 06/17/22 Stop Date: [...] new pen needle with each injection., Pharmacy: [facility]229 Start Date: 07/16/22 Status: Ordered carvedilol 25 mg oral tablet Start: 04/28/23 2:41:00 PM EST, 0.5 tab, PO, bid Start Date: 04/28/23 Status: Ordered Cipro 500 mg oral tablet Start: 07/07/23 2:02:00 PM EDT, 1 tab, PO, q12h, Disp# 20 tab, Refills: 0, Pharmacy: [id number] Start Date: 07/07/23 Status: Ordered clopidogrel 75 mg oral tablet Start: 06/17/22 12:10:00 PM EDT, 1 tab, PO, Daily, Disp# 90 tab, Refills: 3, Pharmacy: [facility] Start Date: 06/17/22 Stop Date: 06/12/23 Status: Ordered Eliquis 5 mg oral tablet Start: 06/21/23 3:27:00 PM EDT, 1 tab, PO, bid, Disp# 180 tab, Refills: 3 Start Date: 06/21/23 Status: Ordered Entresto 24 mg-26 mg oral tablet Start: 02/23/23 2:53:00 PM EST, 2 tab, PO, bid, Disp# 180 tab, Refills: 3, Pharmacy: [facility]229 Start Date: 02/23/23 Status: Ordered gabapentin 100 mg oral capsule Start: 07/08/23 11:07:00 AM EDT, 1 cap, PO, Daily, Disp# 90 cap, Refills: 4, Pharmacy: [facility] Start Date: 07/08/23 Stop Date: 09/30/24 Status: Ordered Jardiance 25 mg oral tablet Start: 10/26/22 4:11:00 PM EDT, 1 tab, PO, Daily, Disp# 90 tab, Refills: 2, Pharmacy: [facility] Start Date: 10/26/22 Stop Date: 07/23/23 Status: Ordered Lantus Solostar Pen 100 units/mL subcutaneous solution Start: 03/01/23 9:39:00 AM EST, 50 unit =, subQ, Daily, Disp# 15 mL, Refills: 2, Brand Medically Necessary, Pharmacy: [facility] Start Date: 03/01/23 Status: Ordered Lasix 20 mg oral tablet Start: 06/24/23 4:22:00 PM EDT, 1 tab, PO, Daily, Disp# 90 tab, Refills: 4, Pharmacy: [facility] Start Date: 06/24/23 Stop Date: 09/16/24 Status: Ordered metFORMIN 1000 mg oral tablet Start: 06/17/22 12:09:00 PM EDT, 1 tab, PO, bid, Disp# 180 tab, Refills: 3, Pharmacy: [facility] Start Date: 06/17/22 Stop Date: [...] Daily, Disp# 135 tab, Refills: 3, Pharmacy: [facility] Start Date: 12/20/22 Stop Date: 12/15/23 Status: Ordered spironolactone 25 mg oral tablet Start: 10/26/22 4:11:00 PM EDT, 2 tab, PO, bid, Disp# 360 tab, Refills: 3, Pharmacy: [facility] Start Date: 10/26/22 Stop Date: 10/21/23 Status: Ordered traMADol 50 mg oral tablet Start: 07/07/23 2:02:00 PM EDT, 1 tab, PO, q4h, Disp# 20 tab, Refills: 0, PRN: as needed for pain, Pharmacy: [facility] Start Date: 07/07/23 Status: Ordered Mental Status 11/18/23 Barriers to Learning one year None evide nt Mandatory Health Literacy Documentation Yes Health Literacy Communication Barriers N ever Primary Language Croatian Problem List Condition Confirmation Course Effective Dates [...] Dates Health Status Cl inical Service Informant Sacral decubitus ulcer Discharge Diagnosis 11/18/23 Non-Specified Procedures Procedure Date Related Diagnosis Body Site Status Amputation of left great toe 07/15/23 Completed Amputation of left 2nd toe, debridement toes 1, 3, and 4 06/16/23 Com pleted LLE Angiogram w/ CONFIGURATION TECHNICIAN of bypass 05/27/23 Completed LLE Angiogram w/ pulse spray thrombolysis SFA and Pop, CONFIGURATION TECHNICIAN stent SFA and Pop 06/01/22 Completed Doppler [...] Reduced cardiac output via thermodilution. 5performed at [facility] Extensive left lower extremity arterial atherosclerosis. Patent [...] Most recent to oldest [Reference Range]: 1 Patient Weight 84.2 kg (11/18/23 4:13 PM) Temperature [36.5-37.9 DegC] 36.6 DegC (11/18/23 4:13 PM) Blood Pressure 110/80mmHg (11/18/23 4:13 PM) BP Location # 1 Right Arm (11/18/23 4:13 PM) Social History Social History Type Response Tobacco Current every day sm oker, Cigarettes, 5 per day. 40 year(s). Total pack years: 50. 1 Smoking Status Current every day li ght smoker Sex Male Sex Representation Male (finding) 1in the Am Implantable Device List Procedure Provider Procedure Date Device Type Site Unknown Unknown 03/15/23 Unknown Unknown Device Identifier Serial Number Lot or Batch Number Manufacturing Date Expiration Date Distinct Identification Code MRI Safety Implantable Status Assigning Authority Unknown Unknown [email or web address] Unknown 12/25/26 Unknown Unknown Active Unknown Patient Care team information Care Team Personnel Name: MICHAEL Pineda Terra L Position: Nurse Pract - Vascular Surg Member Role: Lifetime Relationship Address: [address] [place] [address] [place] Name: Meet Buenrostro Todd Position: Pharmacist Schedule II Member Role: Pharmacy - Lifetime Address: [address] [place] [address] [place] Name: MD Fraire Christopher Position: Physician - Family Med Member Role: Primary Care Provider Address: [address] [facility] [address] [place] [address] [place] Name: JUSTUS Pian Lynn Position: Physician Flight Attendant Ramp Exempt - Vasc Surg Member Role: Lifetime Relationship Address: [address] [facility] [address] [place] [address] [place]
--- OUTSIDE RECORDS SUMMARY | 2023-12-27 22:08 | External Medical Summary | Continuity of Care Document ---
Author Name Unknown Organization [facility] [address] [place] 1 Address [address] [place], [place] [id number] Care Team Providers Care Skiver Sock Linings Name Role Phone Elmer Fraire Primary Care Physician [phone] Encounter [facility] [id number] Date(s): 12/22/23 - 12/22/23 [facility] [address] [place] 1 [facility] [phone] Encounter Diagnosis Other fatigue(Final) - Discharge Disposition: Home or Self Care Attending Physician: MD Fraire Christopher Referring Physician: MD Fraire Christopher Allergies, Adverse [...] Daily, Disp# 90 tab, Refills: 4, Pharmacy: [facility] Start Date: 06/24/23 Stop Date: 09/16/24 Status: Ordered atorvastatin 80 mg oral tablet Start: 06/17/22 12:11:00 PM EDT, 1 tab, PO, Daily, Disp# 90 tab, Refills: 3, Pharmacy: [facility] 2229 Start Date: 06/17/22 Stop Date: 06/12/23 [...] new pen needle with each injection., Pharmacy: [facility] 2229 Start Date: 07/16/22 Status: Ordered clopidogrel 75 mg oral tablet Start: 06/17/22 12:10:00 PM EDT, 1 tab, PO, Daily, Disp# 90 tab, Refills: 3, Pharmacy: [facility] 2229 Start Date: 06/17/22 Stop Date: 06/12/23 Status: Ordered Entresto 24 mg-26 mg oral tablet Start: 02/23/23 2:53:00 PM EST, 2 tab, PO, bid, Disp# 180 tab, Refills: 3, Pharmacy: [facility] 2229 Start Date: 02/23/23 Status: Ordered gabapentin 100 mg oral capsule Start: 12/02/23 3:02:00 AM EDT, 1 cap, PO, Daily, Disp# 90 cap, Refills: 4, Pharmacy: [facility] 2229 Start Date: 12/02/23 Stop Date: 02/24/25 Status: Ordered hydrALAZINE 25 mg oral tablet Start: 12/19/23 4:06:00 PM EDT, 1 tab, PO, tid Start Date: 12/19/23 Status: Ordered Jardiance 25 mg oral tablet Start: 11/23/23 9:40:00 AM EDT, 1 tab, PO, Daily, Disp# 90 tab, Refills: 2, Pharmacy: [facility] 2229 Start Date: 11/23/23 Stop Date: 08/19/24 Status: Ordered Lantus Solostar Pen 100 units/mL subcutaneous solution Start: 03/01/23 9:39:00 AM EST, 50 unit =, subQ, Daily, Disp# 15 mL, Refills: 2, Brand Medically Necessary, Pharmacy: [facility] Start Date: 03/01/23 Status: Ordered Lasix 20 mg oral tablet Start: 06/24/23 4:22:00 PM EDT, 1 tab, PO, Daily, Disp# 90 tab, Refills: 4, Pharmacy: [facility] Start Date: 06/24/23 Stop Date: [...] Daily, Disp# 135 tab, Refills: 3, Pharmacy: [facility] Start Date: 12/20/22 Stop Date: 12/15/23 Status: Ordered spironolactone 25 mg oral tablet Start: 10/26/22 4:11:00 PM EDT, 1 tab, PO, Daily, Disp# 90 tab, Refills: 3, Pharmacy: [facility] Start Date: 10/26/22 Stop Date: 10/21/23 Status: Ordered Xarelto 20 mg oral tablet Start: 12/19/23 4:04:00 PM EDT Start Date: 12/19/23 Status: Ordered Problem List Condition Confirmation Course Effective Dates [...] by medical) and another with superficial cutting Procedures Procedure Date Related Diagnosis Body Site Status Amputation of left great toe 07/15/23 Completed Amputation of left 2nd toe, debridement toes 1, 3, and 4 06/16/23 Com pleted LLE Angiogram w/ POWDER SHOVELER of bypass 05/27/23 Completed LLE Angiogram w/ pulse spray thrombolysis SFA and Pop, POWDER SHOVELER stent SFA and Pop 06/01/22 Completed Doppler [...] Reduced cardiac output via thermodilution. 5performed at [facility] Extensive left lower extremity arterial atherosclerosis. [...] 7moderated degenerative change. mild hallux valgus configuration. Results Laboratory List Name Date Complete Blood Count w Differential (CBC ,DIFFH) 12/22/23 Comprehensive Metabolic Panel (COMP META B PANEL) 12/22/23 Hemoglobin A1C (HEMOGLOBIN, A1C) 4 Magnesium Level (MAGNESIUM) 12/22/23 Thyroid Stimulating Hormone (TSH) Most recent to oldest [Reference Range]: 1 eGFR CKD-EPI [>60 mL/min/1.73 m2] 44 mL/ min/1.73 m2 1 *LOW* (12/22/23 1:02 PM) Estimated Average Glucose 128 mg/dL 2 (12/22/23 1:02 PM) Estimated CrCl 42.92 mL/min (12/22/23 2:03 PM) MPV [9.0-12.2 fL] 12.0 fL (12/22/23 1:02 PM) Immature Gran% 0.9 % (12/22/23 1:02 PM) Neut% 75.6 % (12/22/23 1:02 PM) Lymph% 14.4 % (12/22/23 1:02 PM) Dickinson% 6.6 % (12/22/23 1:02 PM) Baso% 0.7 % (12/22/23 1:02 PM) Eos% 1.8 % (12/22/23 1:02 PM) Immat Gran, Abs [0-0.4 K/uL] 0.04 K/uL (12/22/23 1:02 PM) Neut, Abs [2.0-7.7 K/uL] 3.32 K/uL (12/22/23 1:02 PM) Lymph, Abs [1.0-3.4 K/uL] 0.63 K/uL *LOW* (12/22/23 1:02 PM) Dickinson, Abs [0-1.0 K/uL] 0.29 K/uL (12/22/23 1:02 PM) Baso, Abs [0-0.1 K/uL] 0.03 K/uL (12/22/23 1:02 PM) Eos, Abs [0-0.5 K/uL] 0.08 K/uL (12/22/23 1:02 PM) Type of Diff: AUTO *Unknown* (12/22/23 1:02 PM) RDW [11.5-14.2 %] 14.2 % (12/22/23 1:02 PM) Anion Gap [5-14 mmol/L] 8 mmol/L (12/22/23 1:02 PM) Alb [3.5-5.0 g/dL] 3.3 g/dL *LOW* (12/22/23 1:02 PM) Alk Phos [38-126 unit/L] 238 unit/L *HI* (12/22/23 1:02 PM) ALT [<50 unit/L] 28 unit/L (12/22/23 1:02 PM) AST [15-46 unit/L] 41 unit/L (12/22/23 1:02 PM) BUN [7-20 mg/dL] 22 mg/dL *HI* (12/22/23 1:02 PM) Ca [8.4-10.2 mg/dL] 8.2 mg/dL *LOW* (12/22/23 1:02 PM) Cl- [96-107 mmol/L] 108 mmol/L *HI* (12/22/23 1: PM) HCO3 [22-30 mmol/L] 27 mmol/L (12/22/23 1:02 PM) Cret [0.70-1.30 mg/dL] 1.66 mg/dL *HI* (12/22/23 1: PM) HbA1c [4.0-6.0 %] 6.1 % *HI* (12/22/23 1: PM) Glu [74-106 mg/dL] 171 mg/dL *HI* (12/22/23: PM) Hct [39-48 %] 40.4 % (12/22/23 1:02 PM) Hgb [13.0-17.0 g/dL] 13.0 g/dL (12/22/23 1:02 PM) K [3.5-5.1 mmol/L] 3.1 mmol/L *LOW* (12/22/23 1:02 PM) MCH [28-33 pg] 29.7 pg (12/22/23: PM) MCHC [32-36 g/dL] 32.2 g/dL (12/22/23 1:02 PM) MCV [81-96 fL] 92.4 fL (12/22/23 1:02 PM) Mg [1.6-2.3 mg/dL] 1.5 mg/dL 3 *LOW* (12/22/23 1:02 PM) Na [137-145 mmol/L] 143 mmol/L (12/22/23 1:02 PM) Plts [150-350 K/uL] 136 K/uL *LOW* (12/22/23 1:02 PM) RBC [4.40-5.60 M/uL] 4.37 M/uL *LOW* (12/22/23 1:02 PM) T Bili [0.2-1.3 mg/dL] 0.4 mg/dL (12/22/23 1:02 PM) Prot [6.3-8.2 g/dL] 7.2 g/dL (12/22/23 1:02 PM) TSH [0.47-4.68 uIU/mL] 6.74 uIU/mL 4 *HI* (12/22/23 1:02 PM) WBC [4.0-10.4 K/uL] 4.39 K/uL (12/22/23 1:02 PM) 1Result Comment: Testing Performed By: Dept of Pathology [facility], [address] [place] [address], [place] [address] 2Result Comment: Testing Performed By: Dept of Pathology [facility], [address] [place] [address], [place] [address] 3Result Comment: Testing Performed By: Dept of Pathology [facility], [address] [place] [address], [place] [address] 4Result Comment: Testing Performed By: Dept of Pathology [facility], [address] [place] [address], [place] [address] Social History Social History Type Response Tobacco [...] Safety Implantable Status Assigning Authority Unknown Unknown [email or web address] [id number] Unknown 12/25/26 Unknown Unknown Active Unknown Patient Care team information Care Team Personnel Name: MICHAEL Pineda Terra L Position: Nurse Pract - Vascular Surg Member Role: Lifetime Relationship Address: [address] [facility] [place] [address] [place] Name: Meet Buenrostro Todd Position: Pharmacist Schedule II Member Role: Pharmacy - Lifetime Address: [address] [place] [address] [place] Name: MD Fraire Christopher Position: Physician - Family Med Member Role: Primary Care Provider Address: [address] [facility] [address] [place] [address] [place] Name: JUSTUS Pina Lynn Position: Physician 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
[2023-12-27] MEDS: SACCHAROMYCES BOULARDII 250 MG CAP PO SCH (22:32)
[2023-12-27] MEDS: carvediloL 6.25 MG TAB PO SCH (22:32)
[2023-12-27] MEDS: ATORVASTATIN 40 MG TAB PO SCH (22:33)
[2023-12-27] MEDS: INSULIN ASPART PER UNIT CHARGE SC SCH (22:34)
[2023-12-27] MEDS: LANTUS PER UNIT CHARGE SQ SCH (22:34)
[2023-12-27] MEDS: POTASSIUM CHLORIDE CRTAB 20 MEQ TABCR PO SCH (22:35)
[2023-12-28 06:52] LABS: Basophils # (auto) 0.02 K/uL (0.00-0.20); Basophils % (auto) 0.6 %; Eosinophils # (auto) 0.11 K/uL (0.00-0.50); Eosinophils % (auto) 3.2 %; Hematocrit (blood only) 31.3 % (42.0-52.0); Hemoglobin 10.5 g/dl (14.0-18.0); Immature Granulocytes # (auto) 0.01 K/uL (0.01-0.20); Immature Granulocytes % (auto) 0.3 %; Lymphocytes % (auto) 25.9 %; Mean Corpuscular Hemoglobin 28.8 pg (25.0-34.0); Mean Corpuscular Hgb Conc 33.5 g/dL (32.0-36.0); Mean Corpuscular Volume 85.8 fL (80.0-100.0); Mean Platelet Volume 12.4 fL (9.4-12.4); Monocytes # (auto) 0.37 K/uL (0.11-0.59); Monocytes % (auto) 10.6 %; Neutrophils # (auto) 2.07 K/uL (1.40-6.50); Neutrophils % (auto) 59.4 %; Platelet Count 109 K/uL (130-400); RDW Coefficient of Variation 14.2 % (11.5-14.5); RDW Standard Deviation 44.5 fL (36.4-46.3); Red Blood Count 3.65 M/uL (4.70-6.10); White Blood Count 3.48 K/ul (4.8-10.8)
[2023-12-28 07:12] LABS: BUN Creatinine Ratio 12.6 (10-20); Calcium 7.9 mg/dl (8.6-10.3); Creatinine Clr Calc Pharmacy 46.1 ml/min; Potassium 3.3 mmol/L (3.5-5.1)
[2023-12-28] MEDS: AMIODARONE 200 MG TAB PO SCH (08:44)
[2023-12-28] MEDS: MAGNESIUM OXIDE 400 MG TAB PO SCH ×2 (08:44→20:44)
[2023-12-28] MEDS: SERTRALINE HCL 50 MG TABLET PO SCH (08:45)
[2023-12-28] MEDS: amLODIPine BESYLATE 5 MG TAB PO SCH ×2 (08:46→20:42)
[2023-12-28] MEDS: CLOPIDOGREL BISULFATE 75 MG TAB PO SCH (08:46)
[2023-12-28] MEDS: GABAPENTIN 100 MG CAP PO SCH (08:46)
[2023-12-28 08:49] LABS: Magnesium 1.4 mg/dl (1.7-2.4)
--- NOTE | 2023-12-28 09:08 | XCELERA ---
[id number]
[2023-12-28] MEDS: MAGNESIUM SULFATE / D5W 1 GM/100 ML BAG IV SCH (10:52)
--- NOTE | 2023-12-28 12:24 | Hospitalist Progress Note ---
Date of Service December 28, 2023 Assessment & Plan (1) Syncope: Plan: Appears to be an isolated vasovagal episode associated with 1 episode of loose stools. Loose stools have resolved. He appears to be hemodynamically stable at this time (2) Bradycardia: Plan: Persistent sinus bradycardia may have contributed to syncopal episode. Coreg has been discontinued. Telemetry (3) Hypokalemia: Plan: Oral replacement. Serial labs oral and parenteral replacement. Serial labs (4) Hypomagnesemia: Plan: Oral and parenteral replacement. Serial labs (5) Anemia: Plan: Chronic. No current evidence of hematochezia or melena. Serial labs (6) CAD (coronary artery disease): Plan: Stable. Continue current medical management (7) Type 2 diabetes mellitus: Plan: ADA diet. Sliding scale coverage. Basal insulin therapy (8) Sacral decubitus ulcer, stage III: Plan: Present on admission. Continue wound care. No evidence of active infection at this time (9) CKD (chronic kidney disease): Plan: Monitor intake and output. Serial labs Plan Hopeful discharge to home tomorrow, December 28 Admission and Anticipated Discharge Date Admission Date: December 27, 2023 Subjective Alert and oriented. No complaints. He understands why Coreg is being discontinued due to persistently low heart rate. He had a vasovagal episode associated with 1 episode of diarrhea prior to admission. The diarrhea has subsequently resolved. Oral potassium replacement and magnesium replacement continue. Hopefully he can go home tomorrow, December 28 Review of Systems 2 Review of Systems: Constitutionalno fever or chills ENTno blurred vision, no double vision, no epistaxis, no sore throat Respiratoryno cough, no wheezing, no shortness of breath Cardiacno palpitations, no chest pain, no syncope Servando nausea, vomiting, diarrhea, melena, hematochezia GUno urinary retention, no urinary incontinence, no dysuria, no hematuria Musculoskeletalno joint pain, no muscle tenderness Skinno bruising, no rashes, no pruritus Neurono isolated weakness, no paresthesia, no weakness Psychno depression, no anxiety Physical Exam 2 Physical Exam: General-alert and oriented x3, no fever, no chills HEENT-head atraumatic and normocephalic, pupils equal and reactive to light, extraocular muscles intact Neck-no lymphadenopathy or thyromegaly, trachea midline Chest-clear to auscultation. No rales, wheezing or rhonchi Cardiac-mildly bradycardic rate in the 50s and regular rhythm. Normal S1 and S2 Abdomen-normal bowel sounds, no hepatosplenomegaly Extremities-no cyanosis, clubbing, or edema Neuro-cranial nerves II through XII intact, motor and sensory function within normal limits, strength symmetrical, no focal deficits Psych-normal affect, normal mood Results & Data Results & Data Vital Signs (Past 12 Hours) Vital Signs Temp Pulse Pulse Resp BP Pulse Ox O2 Del Method 12/28/23 07:39 36.9 C 58 L 16 179/88 H 96 Room Air 12/28/23 07:10 64 12/28/23 03:09 36.2 C L 66 17 177/85 H 95 Room Air Laboratory Results 12/28/23 06:07 12/28/23 06:07 PG Care Time/CCT Total # of Minutes Spent Total Time Spent with Patient: Total time spent is greater than 50% in coordination of care (as documented) at patient's floor/unit and/or counseling patient: Coding Level of Care Code 68854 SUB INP/OBS CARE 3/50MIN Diagnoses Syncope R55 Bradycardia R00.1 Hypokalemia E87.6 Hypomagnesemia E83.42 Anemia D64.9 Anemia type: unspecified type CAD (coronary artery disease) I25.10 Type 2 diabetes mellitus E11.9 Sacral decubitus ulcer, stage III L89.153 CKD (chronic kidney disease) N18.9 (5) Anemia Anemia type: unspecified type Qualified Code(s): D64.9 - Anemia, unspecified
[2023-12-28 16:13] LABS: Cdiff Toxin B Gene (2yr or >) Positive Cdiff Gene (Neg)
[2023-12-28] MEDS: hydrALAZINE HCL 20 MG/ML VIAL IV STA (16:30)
[2023-12-28 16:54] LABS: Adenovirus F 40/41 PCR Not Detected (NotDetected); Astrovirus PCR Not Detected (NotDetected); Campylobacter PCR Not Detected (NotDetected); Cryptosporidium PCR Not Detected (NotDetected); Cyclospora cayetanensis PCR Not Detected (NotDetected); Entamoeba histolytica PCR Not Detected (NotDetected); Enteroaggregative E.coli(EAEC) Not Detected (NotDetected); Enteropathogenic E.coli (EPEC) Not Detected (NotDetected); Enterotoxigenic E.coli (ETEC) Not Detected (NotDetected); Giardia lamblia PCR Not Detected (NotDetected); Norovirus GI/GII PCR Not Detected (NotDetected); Plesiomonas shigelloides PCR Not Detected (NotDetected); Rotavirus A PCR Not Detected (NotDetected); Salmonella PCR Not Detected (NotDetected); Sapovirus PCR Not Detected (NotDetected); Shiga-like Toxin E.coli (STEC) Not Detected (NotDetected); Shigella/Enteroinvasive E.coli Not Detected (NotDetected); Vibrio cholerae PCR Not Detected (NotDetected); Vibrio species PCR Not Detected (NotDetected); Yersinia enterocolitica PCR Not Detected (NotDetected)
[2023-12-28 17:32] LABS: Cdiff Antigen Positive
[2023-12-28 17:33] LABS: Cdiff Toxin A+B Positive Cdiff Toxin (Negative)
[2023-12-28] MEDS: hydrALAZINE HCL 20 MG/ML VIAL IV PRN (17:43)
[2023-12-28] MEDS: VANCOMYCIN HCL 250 MG/5 ML SOLN PO SCH (20:41)
[2023-12-28] MEDS: CHERRY SYRUP 5 ML UDP PO SCH (20:41)
[2023-12-29] MEDS: ACETAMINOPHEN 325 MG TAB PO PRN (01:39)
[2023-12-29 06:39] LABS: Basophils # (auto) 0.02 K/uL (0.00-0.20); Basophils % (auto) 0.5 %; Eosinophils # (auto) 0.12 K/uL (0.00-0.50); Eosinophils % (auto) 2.8 %; Hematocrit (blood only) 33.8 % (42.0-52.0); Hemoglobin 11.2 g/dl (14.0-18.0); Immature Granulocytes # (auto) 0.01 K/uL (0.01-0.20); Immature Granulocytes % (auto) 0.2 %; Lymphocytes % (auto) 25.8 %; Mean Corpuscular Hemoglobin 28.9 pg (25.0-34.0); Mean Corpuscular Hgb Conc 33.1 g/dL (32.0-36.0); Mean Corpuscular Volume 87.1 fL (80.0-100.0); Mean Platelet Volume 12.5 fL (9.4-12.4); Monocytes # (auto) 0.45 K/uL (0.11-0.59); Monocytes % (auto) 10.6 %; Neutrophils # (auto) 2.56 K/uL (1.40-6.50); Neutrophils % (auto) 60.1 %; Platelet Count 115 K/uL (130-400); RDW Coefficient of Variation 14.3 % (11.5-14.5); RDW Standard Deviation 45.1 fL (36.4-46.3); Red Blood Count 3.88 M/uL (4.70-6.10); White Blood Count 4.26 K/ul (4.8-10.8)
[2023-12-29 06:41] LABS: BUN Creatinine Ratio 14.5 (10-20); Calcium 8.1 mg/dl (8.6-10.3); Creatinine Clr Calc Pharmacy 46.1 ml/min; Magnesium 1.9 mg/dl (1.7-2.4); Potassium 3.3 mmol/L (3.5-5.1)
[2023-12-29] MEDS: POTASSIUM CHLORIDE CRTAB 20 MEQ TABCR PO SCH (11:06)
[2023-12-29] MEDS: hydrALAZINE 10 MG TAB PO SCH (11:06)
--- NOTE | 2023-12-29 13:04 | Hospitalist Progress Note ---
Date of Service December 29, 2023 Assessment & Plan (1) Syncope: Plan: Appears to be an isolated vasovagal episode associated with his bradycardia and loose stools. No recurrence. Telemetry. (2) C. difficile enteritis: Plan: Oral vancomycin day 2. Supportive care (3) Bradycardia: Plan: Persistent sinus bradycardia may have contributed to syncopal episode prior to admission.. Coreg has been discontinued. Heart rate has already improved. Telemetry (4) Hypokalemia: Plan: Potassium remains low at 3.3. Scheduled oral potassium dosing ordered. Serial labs. (5) Hypomagnesemia: Plan: Corrected with oral and parenteral replacement. Serial labs (6) Anemia: Plan: Chronic. No current evidence of hematochezia or melena. Serial labs (7) CAD (coronary artery disease): Plan: Stable. Continue current medical management (8) Type 2 diabetes mellitus: Plan: ADA diet. Sliding scale coverage. Basal insulin therapy (9) Sacral decubitus ulcer, stage III: Plan: Present on admission. Continue wound care. No evidence of active infection at this time (10) CKD (chronic kidney disease): Plan: Monitor intake and output. Serial labs Plan To be determined. OT and PT assessments requested Admission and Anticipated Discharge Date Admission Date: December 28, 2023 Subjective The patient states the frequency of his diarrhea is decreasing. He is now on oral vancomycin therapy. Hydralazine added to amlodipine for better blood pressure control. Heart rate has improved off of carvedilol. Oral potassium therapy started. Magnesium corrected to 1.9. Continue OT and PT while hospitalized Review of Systems 2 Review of Systems: Constitutionalno fever or chills ENTno blurred vision, no double vision, no epistaxis, no sore throat Respiratoryno cough, no wheezing, no shortness of breath Cardiacno palpitations, no chest pain, no syncope Servando nausea, vomiting, diarrhea, melena, hematochezia GUno urinary retention, no urinary incontinence, no dysuria, no hematuria Musculoskeletalno joint pain, no muscle tenderness Skinno bruising, no rashes, no pruritus Neurono isolated weakness, no paresthesia, no weakness Psychno depression, no anxiety Physical Exam 2 Physical Exam: General-alert and oriented x3, no fever, no chills HEENT-head atraumatic and normocephalic, pupils equal and reactive to light, extraocular muscles intact Neck-no lymphadenopathy or thyromegaly, trachea midline Chest-clear to auscultation. No rales, wheezing or rhonchi Cardiac-normal rate now. Regular rhythm. Normal S1 and S2 Abdomen-normal bowel sounds, no hepatosplenomegaly Extremities-no cyanosis, clubbing, or edema Neuro-cranial nerves II through XII intact, motor and sensory function within normal limits, strength symmetrical, no focal deficits Psych-normal affect, normal mood Results & Data Results & Data Vital Signs (Past 12 Hours) Vital Signs Temp Pulse Pulse Resp BP Pulse Ox O2 Del Method 12/29/23 11:21 36.4 C L 70 18 169/83 H 97 Room Air 12/29/23 08:00 36.5 C 67 18 187/93 H 93 Room Air 12/29/23 07:30 Room Air 12/29/23 05:48 70 12/29/23 04:06 36.6 C 74 14 175/86 H 95 Room Air Laboratory Results 12/29/23 05:41 12/29/23 05:41 PG Care Time/CCT Total # of Minutes Spent Total Time Spent with Patient: Total time spent is greater than 50% in coordination of care (as documented) at patient's floor/unit and/or counseling patient: Coding Level of Care Code 72968 SUB INP/OBS CARE 3/50MIN Diagnoses Syncope R55 C. difficile enteritis A04.72 Bradycardia R00.1 Hypokalemia E87.6 Hypomagnesemia E83.42 Anemia D64.9 Anemia type: unspecified type CAD (coronary artery disease) I25.10 Type 2 diabetes mellitus E11.9 Sacral decubitus ulcer, stage III L89.153 CKD (chronic kidney disease) N18.9 (6) Anemia Anemia type: unspecified type Qualified Code(s): D64.9 - Anemia, unspecified
[2023-12-29] MEDS: PROCHLORPERAZINE 5 MG in SYRINGE 4 ML IV ONE (21:15)
[2023-12-29] MEDS: hydrALAZINE HCL 25 MG TAB PO SCH (21:24)
[2023-12-30] MEDS: LORazepam 0.5 MG TAB PO STA (00:31)
[2023-12-30 06:23] LABS: Basophils # (auto) 0.02 K/uL (0.00-0.20); Basophils % (auto) 0.5 %; Eosinophils # (auto) 0.07 K/uL (0.00-0.50); Eosinophils % (auto) 1.7 %; Hematocrit (blood only) 33.3 % (42.0-52.0); Immature Granulocytes # (auto) 0.01 K/uL (0.01-0.20); Immature Granulocytes % (auto) 0.2 %; Lymphocytes # (auto) 0.97 K/uL (1.20-3.40); Mean Corpuscular Hemoglobin 28.9 pg (25.0-34.0); Mean Corpuscular Volume 87.4 fL (80.0-100.0); Mean Platelet Volume 11.6 fL (9.4-12.4); Monocytes # (auto) 0.32 K/uL (0.11-0.59); Monocytes % (auto) 7.6 %; Neutrophils # (auto) 2.82 K/uL (1.40-6.50); Platelet Count 110 K/uL (130-400); RDW Coefficient of Variation 14.1 % (11.5-14.5); RDW Standard Deviation 45.1 fL (36.4-46.3); Red Blood Count 3.81 M/uL (4.70-6.10); White Blood Count 4.21 K/ul (4.8-10.8)
[2023-12-30 06:44] LABS: BUN Creatinine Ratio 15.3 (10-20); Calcium 8.1 mg/dl (8.6-10.3); Creatinine Clr Calc Pharmacy 48.9 ml/min; Potassium 3.3 mmol/L (3.5-5.1)
[2023-12-30] MEDS: VANCOMYCIN HCL 125 MG/2.5ML SOLN PO SCH (11:14)
--- NOTE | 2023-12-30 12:50 | Hospitalist Progress Note ---
Date of Service December 30, 2023 Assessment & Plan (1) Syncope: Plan: Appears to be an isolated vasovagal episode associated with his bradycardia and loose stools. No recurrence. Telemetry. (2) C. difficile enteritis: Plan: Oral vancomycin day 3. Supportive care (3) Bradycardia: Plan: Persistent sinus bradycardia may have contributed to syncopal episode prior to admission.. Coreg has been discontinued. Heart rate has normalized. Telemetry (4) Hypokalemia: Plan: Potassium continues to remain low at 3.3. Oral potassium frequency uptitrated from twice daily to 3 times daily. Serial labs. (5) Hypomagnesemia: Plan: Corrected with oral and parenteral replacement. Serial labs (6) Anemia: Plan: Chronic. No current evidence of hematochezia or melena. Serial labs (7) CAD (coronary artery disease): Plan: Stable. Continue current medical management (8) Type 2 diabetes mellitus: Plan: ADA diet. Sliding scale coverage. Basal insulin therapy (9) Sacral decubitus ulcer, stage III: Plan: Present on admission. Continue wound care. No evidence of active infection at this time (10) CKD (chronic kidney disease): Plan: Monitor intake and output. Serial labs Plan Hopefully home tomorrow, December 30 Admission and Anticipated Discharge Date Admission Date: December 28, 2023 Subjective Alert and oriented. Anxious to go home. Loose stools have improved considerably. Vancomycin day 3. Potassium remains slightly low at 3.3. Oral potassium replacement increased to 3 times daily. Blood pressure is much better on hydralazine and amlodipine. Coreg has been discontinued. Heart rate has improved to 85 bpm. Review of Systems 2 Review of Systems: Constitutionalno fever or chills ENTno blurred vision, no double vision, no epistaxis, no sore throat Respiratoryno cough, no wheezing, no shortness of breath Cardiacno palpitations, no chest pain, no syncope Servando nausea, vomiting, diarrhea, melena, hematochezia GUno urinary retention, no urinary incontinence, no dysuria, no hematuria Musculoskeletalno joint pain, no muscle tenderness Skinno bruising, no rashes, no pruritus Neurono isolated weakness, no paresthesia, no weakness Psychno depression, no anxiety Physical Exam 2 Physical Exam: General-alert and oriented x3, no fever, no chills HEENT-head atraumatic and normocephalic, pupils equal and reactive to light, extraocular muscles intact Neck-no lymphadenopathy or thyromegaly, trachea midline Chest-clear to auscultation. No rales, wheezing or rhonchi Cardiac-normal rate now. Regular rhythm. Normal S1 and S2 Abdomen-normal bowel sounds, no hepatosplenomegaly Extremities-no cyanosis, clubbing, or edema Neuro-cranial nerves II through XII intact, motor and sensory function within normal limits, strength symmetrical, no focal deficits Psych-normal affect, normal mood Results & Data Results & Data Vital Signs (Past 12 Hours) Vital Signs Temp Pulse Pulse Resp BP Pulse Ox O2 Del Method 12/30/23 11:26 36.4 C L 79 18 173/94 H 96 Room Air 12/30/23 08:00 70 12/30/23 08:00 Room Air 12/30/23 07:33 36.5 C 78 18 157/75 H 97 Room Air 12/30/23 04:11 36.4 C L 85 18 151/81 H 96 Room Air Laboratory Results 12/30/23 05:52 12/30/23 05:52 PG Care Time/CCT Total # of Minutes Spent Total Time Spent with Patient: Total time spent is greater than 50% in coordination of care (as documented) at patient's floor/unit and/or counseling patient: Coding Level of Care Code 69611 SUB INP/OBS CARE 3/50MIN Diagnoses Syncope R55 C. difficile enteritis A04.72 Bradycardia R00.1 Hypokalemia E87.6 Hypomagnesemia E83.42 Anemia D64.9 Anemia type: unspecified type CAD (coronary artery disease) I25.10 Type 2 diabetes mellitus E11.9 Sacral decubitus ulcer, stage III L89.153 CKD (chronic kidney disease) N18.9 (6) Anemia Anemia type: unspecified type Qualified Code(s): D64.9 - Anemia, unspecified
[2023-12-30] MEDS: POTASSIUM CHLORIDE CRTAB 20 MEQ TABCR PO SCH (15:29)
[2023-12-30] MEDS: CARBOHYDRATES FOR HYPOGLYCEMIA PO PRN (17:04)
[2023-12-30] MEDS: LANTUS PER UNIT CHARGE SQ SCH (21:38)
[2023-12-31 07:38] LABS: BUN Creatinine Ratio 16.6 (10-20); Calcium 8.3 mg/dl (8.6-10.3); Creatinine Clr Calc Pharmacy 50.5 ml/min; Potassium 4.1 mmol/L (3.5-5.1)
--- NOTE | 2023-12-31 08:04 | Discharge Summary ---
Discharge Summary Date of Service December 31, 2023 Principal Dx & Hospital Course #1 = Principal Diagnosis (1) Syncope: Appears to be an isolated vasovagal episode associated with his bradycardia and loose stools. No recurrence. Telemetry. (2) C. difficile enteritis: Oral vancomycin day 4. Will continue oral vancomycin for 10 more days at discharge supportive care (3) Bradycardia: Persistent sinus bradycardia may have contributed to syncopal episode prior to admission.. Coreg has been discontinued. Heart rate has normalized. Telemetry (4) Hypokalemia: Potassium has been corrected with oral replacement. Continue potassium chloride once daily at discharge. (5) Hypomagnesemia: Corrected with oral and parenteral replacement. Continue magnesium supplement at discharge. Serial labs (6) Anemia: Chronic. No current evidence of hematochezia or melena. Serial labs (7) CAD (coronary artery disease): Stable. Continue current medical management (8) Type 2 diabetes mellitus: ADA diet. Sliding scale coverage. Basal insulin therapy (9) Sacral decubitus ulcer, stage III: Present on admission. Continue wound care. No evidence of active infection at this time (10) CKD (chronic kidney disease): Monitor intake and output. Serial labs Plan Home today, December 30 Admission HPI Per Admitting Provider Cody is a 73-year-old male with a past medical history of DM2, SVT, A-fib, peripheral vascular disease, CKD last discharged from the hospital 09/16/2023 after an admission for acute renal failure in the setting of MRSA bacteremia/antibiotic use and multiple renally active medications. Required transient dialysis at that time, subsequently improved and dialysis catheter was removed. He presents to the emergency department 12/26 after he was in the wound center to have a sacral wound reevaluated but had a feeling of hunger and discomfort in his abdomen and then while getting out of the vehicle had a sudden unexpected bowel movement, became lightheaded and dizzy, and syncopized. Per bystanders was out for a short period of time which was not thought to be more than a minute. No chest pain/chest pressure/diaphoresis/head strike/shaking activity. Reportedly came back to baseline relatively quickly and did not appear postictal, however initial blood pressure was low with 90 systolic which was back to baseline at time of ER evaluation. Cody seen at bedside. He reports that he has generally felt well in the last week. He has not any recent illnesses and denies fever chills sweats abdominal pain nausea/vomiting dysuria or unusual food intake. He reports he felt otherwise completely in his normal state of health when he went to get out of the car and had a sudden liquid bowel movement. Stools are normally formed, but had a liquid incontinent bowel movement and a feeling of lightheadedness and subsequently passed out. He reports that he was only out for a minute or 2 per the people he was with and while he was a little disoriented after felt he was back to his normal mentation within just a few minutes. Did not have any focal weakness. Subsequently has not had any bowel movements/diarrhea, does not have any thomas pain and no nausea or vomiting. Bowel movement was brown, no blood/melena. He reports he did not hit his head. Currently feels hungry, and at his normal state of health. Medical History: Reviewed Medications: Reviewed Surgical History: Reviewed Family history: Reviewed Allergies: Reviewed Social History: Reviewed Code Status: Full Discharge Exam General-alert and oriented x3, no fever, no chills HEENT-head atraumatic and normocephalic, pupils equal and reactive to light, extraocular muscles intact Neck-no lymphadenopathy or thyromegaly, trachea midline Chest-clear to auscultation. No rales, wheezing or rhonchi Cardiac-normal rate now. Regular rhythm. Normal S1 and S2 Abdomen-normal bowel sounds, no hepatosplenomegaly Extremities-no cyanosis, clubbing, or edema Neuro-cranial nerves II through XII intact, motor and sensory function within normal limits, strength symmetrical, no focal deficits Psych-normal affect, normal mood Discharge Plan Discharge Items Patient Disposition: Home - Self-Care Reason For Visit: SYNCOPE, HYPOKALEMIA Discharge Diagnosis: Syncope, bradycardia, C. difficile enteritis, uncontrolled hypertension, hypomagnesemia, hypokalemia Condition on Discharge: Good Activity: Resume your previous activity Non-emergency contact: Primary Care Provider Call non-emergency contact if: you have any medication questions Follow-up/Referrals: Elmer Fraire MD [Primary Care Provider] - Diet: Carb Consistent or DM2 and Heart Healthy Addtl Attending Provider Instructions: Carvedilol (Coreg) has been discontinued. Amlodipine dosage has been increased. Hydralazine is a new medication for blood pressure control. Continue vancomycin for 10 more days for the C. difficile enteritis. Continue magnesium supplement and potassium daily. Prescriptions have been sent to [facility] [address] Pending Studies at Discharge: No Stand-Alone Forms: My [facility], Smoking Cessation Medications and DC Order Prescriptions: New hydralazine 25 mg Tablet 25 mg PO TID Qty: 100 0RF amlodipine [Norvasc] 5 mg Tablet 5 mg PO BID Qty: 60 0RF magnesium oxide 400 mg (241.3 mg magnesium) Tablet 400 mg PO BID Qty: 60 0RF vancomycin 125 mg capsule 125 mg PO QID 10 Days Qty: 40 0RF potassium chloride 10 mEq capsule, extended release 10 meq PO DAILY Qty: 30 0RF Continued gabapentin 100 mg capsule 100 mg PO DAILY atorvastatin [Lipitor] 80 mg Tablet 80 mg PO UD Rx Instructions: 80 mg po hs. filled 10/24 10 day supply amiodarone 200 mg Tablet 200 mg PO DAILY clopidogrel 75 mg tablet 75 mg PO UD Rx Instructions: 75 mg po daily. last filled 08/2023 for 24 day supply sertraline 25 mg Tablet 75 mg PO DAILY Saccharomyces boulardii [Florastor] 250 mg Capsule 250 mg PO TID protein supplement Liquid 1 ea PO DAILY PRN (Reason: Other) Rx Instructions: 30 ml bid glucernia sildenafil 100 mg tablet 100 mg PO DAILY PRN (Reason: Erectile Dysfunction) insulin glargine [Lantus Solostar U-100 Insulin] 100 unit/mL (3 mL) insulin pen 44 unit SUBCUT UD Rx Instructions: per pt he does 44 units as needed. List has 50 units daily furosemide 20 mg PO DAILY pantoprazole [Protonix] 40 mg Tablet,Delayed Release (Dr/Ec) 40 mg PO DAILY losartan 100 mg Tablet 100 mg PO DAILY Xarelto 20 mg Tablet 20 mg PO DAILY Rx Instructions: start date of 12/19/23 must administer with evening meal Jardiance 25 mg Tablet 25 mg PO DAILY Discontinued amlodipine 2.5 mg Tablet 5 mg PO DAILY Qty: 0 0RF Rx Instructions: hold for SBP < 100 or DBP < 60 hydralazine 25 mg Tablet 25 mg PO TID carvedilol 3.125 mg tablet 25 mg PO UD Rx Instructions: list faxed to [place] has 25 mg po bid. Last fill 10/24 has 6.25 mg po bid. 10 day supply Discharge Orders: Discharge Order (Routine); Ordered 12/31/23 Ordered By: Gregorio Castaneda/Other Patient Handouts: High Blood Sugar (Hyperglycemia), Hypoglycemia (Low Blood Sugar), Managing Type 2 Diabetes Admission Data Admit Date/Time: 12/28/23 17:52 Attending Provider: Gregorio Walters Admit Provider: Ash Horne Primary Care Provider: Elmer Fraire Other Providers: Ash Horne; [facility] Hospital Stay Data Consultations 12/27/23 16:35 ED Decision to Admit Stat Pending Results Patient Have Any Pending Studies at Discharge: No Discharge Instructions Given to Patient (Per Discharging Provider) Carvedilol (Coreg) has been discontinued. Amlodipine dosage has been increased. Hydralazine is a new medication for blood pressure control. Continue vancomycin for 10 more days for the C. difficile enteritis. Continue magnesium supplement and potassium daily. Prescriptions have been sent to [facility] [employer] [facility] Total Time Total Time Spent Total Time Spent (In Minutes): 45 minutes Coding Level of Care Code 30015 INP/OBS DISCH >30 MIN Diagnoses Syncope R55 C. difficile enteritis A04.72 Bradycardia R00.1 Hypokalemia E87.6 Hypomagnesemia E83.42 Anemia D64.9 Anemia type: unspecified type CAD (coronary artery disease) I25.10 Type 2 diabetes mellitus E11.9 Sacral decubitus ulcer, stage III L89.153 CKD (chronic kidney disease) N18.9
[2023-12-31 08:14] VITALS: BP 155/89; RESP 18; TEMP 97.7; O2SAT 97
[2023-12-31 08:55] VITALS: PULSE 74
[2023-12-31 17:17] LABS: Babesia microti DNA Not Detected (Not Detected)
--- NOTE | 2023-12-31 19:47 | Electrocardiogram Report ---
Test Reason : Blood Pressure : */* mmHG Vent. Rate : 88 BPM Atrial Rate : 85 BPM P-R Int : * ms QRS Dur : 120 ms QT Int : 398 ms P-R-T Axes : * -30 137 degrees QTcB Int : 481 ms Wide QRS rhythm Left axis deviation Septal infarct , age undetermined T wave abnormality, consider lateral ischemia Left ventricular hypertrophy Abnormal ECG When compared with ECG of 27-Dec-2023 14:34, Wide QRS rhythm has replaced Sinus rhythm Vent. rate has increased by 37 bpm Confirmed by Kendra Lazaro ([id number]) on 12/31/2023 7:46:57 PM Referred By: REFERRED SELF Confirmed By: Kendra Lazaro
== END 2023-12-31 12:39 | disposition home health service (06) | DRG 371 ==
LOC: ED 14:19 → 2W 17:26 → SUATTDRO 17:26 → INTOOBSV 17:26 → 2W 20:14

== ENCOUNTER 2024-07-13 16:35 | Inpatient (IN) ==
[2024-07-13 17:22] LABS: Hematocrit (blood only) 24.1 % (42.0-52.0); Hemoglobin 7.1 g/dl (14.0-18.0); Mean Corpuscular Hgb Conc 29.5 g/dL (32.0-36.0); Mean Corpuscular Volume 74.8 fL (80.0-100.0); Mean Platelet Volume 11.7 fL (9.4-12.4); Platelet Count 288 K/uL (130-400); RDW Standard Deviation 45.9 fL (36.4-46.3); Red Blood Count 3.22 M/uL (4.70-6.10); White Blood Count 6.24 K/ul (4.8-10.8)
[2024-07-13 17:39] LABS: Alanine Aminotransferase 5 U/L (7-52); Albumin Globulin Ratio 0.8 (0.9-2); Albumin Level 3.3 gm/dl (3.4-5.0); Alkaline Phosphatase 110 U/L (34-104); Anion Gap 7 (3-11); Aspartate Aminotransferase 10 U/L (13-39); BUN Creatinine Ratio 22.1 (10-20); Bilirubin,Total 0.4 mg/dl (0.2-1.0); Blood Urea Nitrogen 62 mg/dl (6-23); Calcium 8.4 mg/dl (8.6-10.3); Carbon Dioxide 21 mmol/L (21-32); Chloride 106 mmol/L (98-107); Glucose 134 mg/dl (70-99(Fasting)); Potassium 5.3 mmol/L (3.5-5.1); Sodium 134 mmol/L (136-145); Total Protein 7.3 gm/dl (6.0-8.3)
[2024-07-13 17:45] LABS: Troponin I High Sensitivity 29.1 pg/ml (0-20)
[2024-07-13 17:48] LABS: INR 1.1 (0.9-1.1); Partial Thromboplastin Ratio 0.8; Partial Thromboplastin Time 22 Seconds (21-31); Prothrombin Time 11.9 Seconds (9.0-12.0)
[2024-07-13] MEDS: fentaNYL citrate PF 100 MCG/2 ML VIAL IV STA (18:16)
--- NOTE | 2024-07-13 18:16 | Emergency Department Note ---
Impression & Plan Abdominal ascites, Acute kidney injury superimposed on CKD, Anemia, Cirrhosis of liver ED Provider Note Provider: Phillip Marsh MD CHIEF COMPLAINT: Abdominal swelling HISTORY OF PRESENT ILLNESS: Patient is a 73-year-old gentleman past medical history significant for diabetes, A-fib on Xarelto, CKD, CHF presenting here referred by his primary doctor. States over the past several days has had worsening abdominal swelling and little bit of discomfort. States he hurt his back of the day sleeping on a bad sofa and his lower back hurts a little bit. No fevers. No significant chest pain. Some dyspnea on exertion and states he cannot really take a good deep breath. Denies significant swelling of his lower legs. Saw his primary doctor 2 days ago and had some blood work done and an x- ray. Was noted to be anemic at that time and had a CAT scan today and then referred here for further evaluation. Denies any bloody or black stools. States compliance with home lesions and was switched to Bumex yesterday. Denies any trauma or falls. PAST MEDICAL HISTORY: As noted above MEDICATIONS: Reviewed home medications and took his medications earlier today. SOCIAL HISTORY: Has not had alcohol in 25 years. PHYSICAL EXAM: GENERAL: alert and oriented in no acute distress on stretcher Head: normocephalic and atraumatic EYES: No injection, discharge or icterus. EOMI. NECK: Trachea midline. ENT: Mucous membranes pink and moist. LUNGS: Airway patent. No retractions. Breath sounds clear HEART: Regular rate and rhythm. No chest wall tenderness ABDOMEN: Moderately distended without significant tenderness. SKIN: Acyanotic, warm, dry, without rashes EXTREMITIES: Without swelling, tenderness or deformity NEUROLOGICAL: No focal deficits. No aphasia. No facial droop or slurred speech. Ambulatory. EK bpm normal sinus rhythm with left axis and incomplete right bundle branch block. Some anterior V2 T wave inversions. No acute ST segment elevation. QTc 471. CONTINUOUS CARDIAC MONITORING: was ordered and showed a heart rate of 60s to 70s bpm in normal sinus rhythm Patient's laboratory studies and imaging reviewed. Differential includes Appendicitis, infections, diverticulitis, UTI, obstruction, mesenteric ischemia, aortic pathology, inflammatory bowel disease, renal colic, PUD, pancreatitis, biliary pathology, hernia, volvulus, constipation, as well as other pathologies. IMPRESSION/MEDICAL DECISION MAKING: Patient complex history including prior dialysis and history of hep C and he states has not had treatment for this. No recent alcohol use in decades. Vitals are reassuring. Does not appear in distress but significantly distended abdomen. CT scan completed prior to arrival reviewed in the system showing earlier today significant ascites with cirrhotic changes also small splenic infarct. Is already anticoagulated. Does not seem to be particularly febrile or infected or severely tender and I doubt SBP. Question some kind of liver cirrhosis developing whether this is from his history of hepatitis C or possible cardiorenal syndrome will need to be further worked up. Does have a bit of FLORECITA today. Hemoglobin tenuous at 7.1 and consented for blood but denies GI bleed symptoms. Will at this time work to bring him in. Patient has been on furosemide just switched to Bumex yesterday and now has some worsening renal function. Will defer further diuretic choice to the hospitalist team who were contacted and will admit the patient. Patient consented for blood. DIAGNOSIS: Liver cirrhosis, abdominal ascites, anemia, FLORECITA on CKD DISPOSITION: Hospitalist will evaluate Patient was agreeable with this plan. Past Med/Surg History Problem List (Updated 07/13/24 @ 22:09 by Phillip Marsh M.D.) Cirrhosis of liver (Acute) Anemia (Acute) Acute kidney injury superimposed on CKD (Acute) Abdominal ascites (Acute) C. difficile enteritis Bradycardia Elevated troponin (Acute) Hypokalemia (Acute) Hypomagnesemia (Acute) Syncope (Acute) Unresponsive episode (Acute) Pressure injury of coccygeal region, stage 3 (Acute) DM (diabetes mellitus) Cellulitis in diabetic foot (Acute) Anemia (Acute) Diabetic infection of left foot (Acute) Diabetic infection of left foot Wound infection Surgical wound, non healing Liver mass Hyponatremia Supraventricular tachycardia Atrial fibrillation Multifocal pneumonia (Acute) Sepsis (Acute) Peripheral arterial disease with history of revascularization Ulcer of toe Diabetic foot ulcer Acute kidney injury superimposed on CKD 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 Anxiety (Acute) Chest pain (Acute) DVT prophylaxis Arterial occlusion, lower extremity (Acute) Medical History Anemia CKD (chronic kidney disease) Sacral decubitus ulcer, stage III Chronic pain Thrombocytopenia Acute renal failure Osteomyelitis of foot, left, acute MRSA bacteremia Heart failure with ejection fraction improved from reduced range to preserved range GIB (gastrointestinal bleeding) History of atrial fibrillation CAD (coronary artery disease) Acute HFrEF (heart failure with reduced ejection fraction) Cardiomyopathy Dyslipidemia Tobacco abuse Atherosclerosis of artery of left lower extremity History of anemia History of anxiety History of alcohol abuse Hx of drug abuse IV drug abuse History of hepatitis B Hepatitis C virus Heart failure with mid-range ejection fraction HTN (hypertension) Surgical History History of amputation of great toe S/P CABG x 2 Hx of cardiac catheterization History of open reduction and internal fixation (ORIF) procedure Hx of colonoscopy History of left knee surgery History of eye surgery History of cataract extraction Social History Smoking Status: Current every day smoker Tobacco Type: Cigarettes Cigarettes Per Day: 1/2 ppd; Second Hand Exposure: No; Do You Dip or Chew Tobacco: No; Hx Alcohol Use: No Hx Substance Use: No Preferred Language: Lao Communication Ability: Effective Heel Finisher Required: No Beliefs That Will Affect Care: None Current Living Situation: Alone Current Living Situation Comment: Currently living at home current occupational status: disabled How many Children do You have: 1 other: Has a caregiver to assist with care Feels Safe at Home: Yes Diet: diabetic and ideal protein Assistive Devices: Walker Allergies Allergies Allergy/AdvReac Type Severity Reaction Status Date / Time cat dander Allergy Intermediate CONGESTION Verified 06/18/24 09:57 Home Meds Home Medications Medication Instructions Recorded Confirmed amiodarone 200 mg tablet 200 mg PO DAILY 08/05/23 07/13/24 atorvastatin 80 mg tablet (Lipitor) 80 mg PO QAM 08/05/23 07/13/24 clopidogrel 75 mg tablet 75 mg PO QAM 08/05/23 07/13/24 empagliflozin 25 mg tablet 25 mg PO QAM 12/27/23 07/13/24 (Jardiance) pantoprazole 40 mg tablet,delayed 40 mg PO QAM 12/27/23 07/13/24 release (Protonix) rivaroxaban 20 mg tablet (Xarelto) 20 mg PO DAILY 12/27/23 07/13/24 sildenafil 100 mg tablet 100 mg PO DAILY PRN Erectile 12/27/23 07/13/24 Dysfunction sacubitril 24 mg-valsartan 26 mg 1 tab PO BID 06/18/24 07/13/24 tablet (Entresto) spironolactone 25 mg tablet 25 mg PO QAM 06/18/24 07/13/24 bumetanide 1 mg tablet 1 mg PO QAM 07/13/24 07/13/24 gabapentin 600 mg tablet 600 mg PO HS 07/13/24 07/13/24 potassium chloride 10 mEq 10 meq PO QAM 07/13/24 07/13/24 tablet,extended release sertraline 50 mg tablet 150 mg PO QAM 07/13/24 07/13/24 Previous Rx's Medication Instructions Recorded amlodipine 5 mg tablet (Norvasc) 5 mg PO BID #60 tabs 12/31/23 hydralazine 25 mg tablet 25 mg PO TID #100 tabs 12/31/23 magnesium oxide 400 mg (241.3 mg 400 mg PO BID #60 tabs 12/31/23 magnesium) tablet Results & Data (ED) Vital Signs Vital Signs - 24 hr 07/13/24 16:37 07/13/24 18:19 07/13/24 18:27 Temperature 36.7 C Temperature Source Skin Pulse Rate - Lying 69 Pulse Rate - Sitting 68 Pulse Rate - Standing 74 Pulse Rate 71 70 Pulse Rate [Apical] Pulse Rate from SpO2 Sensor Pulse Rhythm Regular Respiratory Rate 19 15 Respiratory Effort / Characteristics Non-Labored Spontaneous Respiratory Depth Normal Respiratory Pattern Regular Blood Pressure - Lying 130/77 Blood Pressure - Sitting 130/82 Blood Pressure- Standing 107/66 Blood Pressure 126/78 Blood Pressure [Right Arm] Blood Pressure Mean 94 Blood Pressure Mean [Right Arm] Pulse Oximetry 99 97 Oxygen Delivery Method Room Air Room Air Sepsis Recent Fever Within 48 Hours No Sepsis New/Unexplained Change in Mental Status N/A Sepsis Action Taken by Nursing No Action Required 07/13/24 19:12 07/13/24 19:18 07/13/24 19:20 Temperature Temperature Source Pulse Rate - Lying Pulse Rate - Sitting Pulse Rate - Standing Pulse Rate 68 70 Pulse Rate [Apical] 77 Pulse Rate from SpO2 Sensor 69 Pulse Rhythm Respiratory Rate 15 24 Respiratory Effort / Characteristics Respiratory Depth Normal Respiratory Pattern Blood Pressure - Lying Blood Pressure - Sitting Blood Pressure- Standing Blood Pressure 149/72 H Blood Pressure [Right Arm] 137/87 Blood Pressure Mean 97 Blood Pressure Mean [Right Arm] 103 Pulse Oximetry 96 97 Oxygen Delivery Method Room Air Room Air Sepsis Recent Fever Within 48 Hours Sepsis New/Unexplained Change in Mental Status Sepsis Action Taken by Nursing 07/13/24 20:03 07/13/24 20:39 07/13/24 21:00 Temperature Temperature Source Pulse Rate - Lying Pulse Rate - Sitting Pulse Rate - Standing Pulse Rate 71 71 78 Pulse Rate [Apical] Pulse Rate from SpO2 Sensor 70 71 78 Pulse Rhythm Respiratory Rate 21 22 17 Respiratory Effort / Characteristics Respiratory Depth Respiratory Pattern Blood Pressure - Lying Blood Pressure - Sitting Blood Pressure- Standing Blood Pressure 160/88 H 143/86 H 126/81 Blood Pressure [Right Arm] Blood Pressure Mean 112 105 96 Blood Pressure Mean [Right Arm] Pulse Oximetry 97 98 100 Oxygen Delivery Method Room Air Room Air Room Air Sepsis Recent Fever Within 48 Hours Sepsis New/Unexplained Change in Mental Status Sepsis Action Taken by Nursing 07/13/24 21:03 07/13/24 21:27 Temperature Temperature Source Pulse Rate - Lying Pulse Rate - Sitting Pulse Rate - Standing Pulse Rate 79 71 Pulse Rate [Apical] Pulse Rate from SpO2 Sensor 76 69 Pulse Rhythm Respiratory Rate 13 21 Respiratory Effort / Characteristics Respiratory Depth Respiratory Pattern Blood Pressure - Lying Blood Pressure - Sitting Blood Pressure- Standing Blood Pressure 126/81 141/82 H Blood Pressure [Right Arm] Blood Pressure Mean 96 101 Blood Pressure Mean [Right Arm] Pulse Oximetry 96 97 Oxygen Delivery Method Room Air Room Air Sepsis Recent Fever Within 48 Hours Sepsis New/Unexplained Change in Mental Status Sepsis Action Taken by Nursing Laboratory Data 07/13/24 12:10 07/13/24 12:10 Lab Results 07/13/24 07/13/24 Range/Units 12:10 18:22 WBC 6.24 (4.8-10.8) K/ul RBC 3.22 L (4.70-6.10) M/uL Hgb 7.1 L (14.0-18.0) g/dl Hct 24.1 L (42.0-52.0) % MCV 74.8 L (80.0-100.0) fL MCH 22.0 L (25.0-34.0) pg MCHC 29.5 L (32.0-36.0) g/dL RDW Std Deviation 45.9 (36.4-46.3) fL RDW Coeff of Josh 17.0 H (11.5-14.5) % Plt Count 288 (130-400) K/uL MPV 11.7 (9.4-12.4) fL PT 11.9 (9.0-12.0) Seconds INR 1.1 (0.9-1.1) APTT 22 (21-31) Seconds PTT Ratio 0.8 Sodium 134 L (136-145) mmol/L Potassium 5.3 H (3.5-5.1) mmol/L Chloride 106 (98-107) mmol/L Carbon Dioxide 21 (21-32) mmol/L Anion Gap 7 (3-11) BUN 62 H (6-23) mg/dl Creatinine 2.80 H D (0.6-1.4) mg/dl Est Cr Clr Drug Dosing Not Reportable eGFR 23.24 BUN/Creatinine Ratio 22.1 H (10-20) Glucose 134 H (70-99(Fasting)) mg/dl Calcium 8.4 L (8.6-10.3) mg/dl Total Bilirubin 0.4 (0.2-1.0) mg/dl AST 10 L (13-39) U/L ALT 5 L (7-52) U/L Alkaline Phosphatase 110 H (34-104) U/L Troponin I High Sens 29.1 H (0-20) pg/ml B-Natriuretic Peptide 935 H (0-100) pg/ml Total Protein 7.3 (6.0-8.3) gm/dl Albumin 3.3 L (3.4-5.0) gm/dl Globulin 4.0 (2.5-4.0) gm/dl Albumin/Globulin Ratio 0.8 L (0.9-2) Blood Type A Positive Antibody Screen POSITIVE A Direct Antiglob Test Positive A (Negative) UZAIR (IgG-AHG) Weak Pos A (Negative) UZAIR, Polyspecific Weak Pos A (Negative) UZAIR C3b, C3d 5 Min Neg (Negative) Crossmatch See Detail Administered Medications Discontinued Medications Fentanyl Citrate (Fentanyl Citrate Pf 100 Mcg/2 Ml Vial) 50 mcg IV NOW STA Stop: 07/13/24 18:10 Last Admin: 07/13/24 18:16 Dose: 50 mcg Documented By: [email or web address] Imaging Data Radiologist's Impression: Chest X-Ray 07/13/24 18:19 Chest radiograph, one view History: Swelling Comparison: 07/11/2024 Findings: Single AP view of the chest performed. No focal consolidation or pleural effusion. No pneumothorax. The cardiomediastinal silhouette is within normal limits. Normal pulmonary vascularity. No evidence for lymphadenopathy. No visualized bony or soft tissue abnormality. Chronic bilateral rib deformities. Impression: Normal chest radiograph Electronically signed by Elmer Martinez 07-13-2024 6:59 PM Discharge Plan Visit Data Chief Complaint: Abnormal Labs/Diagnostic Testing Stated Complaint: ABD PAIN, ABN LABS ED Provider: Phillip Marsh Discharge Problem: Abdominal ascites, Acute kidney injury superimposed on CKD, Anemia, Cirrhosis of liver Patient Disposition: Being Evaluated by Hospitalist Condition: Fair Forms Stand Alone Forms: My [facility] Prescriptions Prescriptions: No Action Entresto 24-26 mg tablet 1 tab PO BID spironolactone 25 mg tablet 25 mg PO QAM atorvastatin [Lipitor] 80 mg Tablet 80 mg PO QAM amiodarone 200 mg Tablet 200 mg PO DAILY clopidogrel 75 mg tablet 75 mg PO QAM sildenafil 100 mg tablet 100 mg PO DAILY PRN (Reason: Erectile Dysfunction) pantoprazole [Protonix] 40 mg Tablet,Delayed Release (Dr/Ec) 40 mg PO QAM Xarelto 20 mg Tablet 20 mg PO DAILY Jardiance 25 mg Tablet 25 mg PO QAM hydralazine 25 mg Tablet 25 mg PO TID Qty: 100 0RF amlodipine [Norvasc] 5 mg Tablet 5 mg PO BID Qty: 60 0RF magnesium oxide 400 mg (241.3 mg magnesium) Tablet 400 mg PO BID Qty: 60 0RF gabapentin 600 mg tablet 600 mg PO HS potassium chloride 10 mEq tablet extended release 10 meq PO QAM sertraline 50 mg tablet 150 mg PO QAM bumetanide 1 mg tablet 1 mg PO QAM Referrals Referrals: Elmer Fraire MD [Primary Care Provider] - Discharge Problem: Anemia Qualifiers: Anemia type: unspecified type Qualified Code(s): D64.9 - Anemia, unspecified Cirrhosis of liver Qualifiers: Ascites presence: with ascites
[2024-07-13] MEDS ORDERED: NON-FORMULARY MEDICATION (Sildenafil 100 mg tablet) PO PRN (18:28)
[2024-07-13] MEDS ORDERED: NON-FORMULARY MEDICATION (Insulin Glargine [Lantus Solostar U-100 Insulin] 100 unit/mL (3 SQ SCH (18:30)
[2024-07-13] MEDS ORDERED: SODIUM CHLORIDE 0.9% 100 ML IV PRN (18:33)
--- NOTE | 2024-07-13 18:59 | XRay Report ---
Chest radiograph, one view History: Swelling Comparison: 07/11/2024 Findings: Single AP view of the chest performed. No focal consolidation or pleural effusion. No pneumothorax. The cardiomediastinal silhouette is within normal limits. Normal pulmonary vascularity. No evidence for lymphadenopathy. No visualized bony or soft tissue abnormality. Chronic bilateral rib deformities. Impression: Normal chest radiograph Electronically signed by Elmer Martinez 07-13-2024 6:59 PM
--- NOTE | 2024-07-13 19:15 | History & Physical Report ---
Date of Service July 13, 2024 Assessment & Plan (1) Cirrhosis of liver: Plan: Newly suspected due to imaging on CT scan as well as ascities. Patient will be admitted to medical. will hold diuretics. (2) Abdominal ascites: Plan: may need paracenthesis (3) DM (diabetes mellitus): Plan: will check a1c last a1c was below 6 (4) Acute kidney injury superimposed on CKD: Plan: will hold diuretics, will order IVF may need albumin, marilin monitor. (5) Anemia: Plan: will hold anticoagulant and monitor iron History of Present Illness Chief Complaint: abnormal labs Primary Care Provider: Elmer Fraire MD Patient is a 73 yo male with PMH of Afib, CKD< CHF, diabetes. Patient reports over the past week, he has noticed worsening abdominal swelling. He reports during this time his lower back hurts now.Patient reports being more SOB now. He states he has some orthopnea. Denies pedal edema. Patient was seen by PCP and switched his diuretics from lasix to bumex. Blood work showed anemia and FLORECITA. Patient then had a CT scan and was referred to the ED Allergies Allergy/AdvReac Type Severity Reaction Status Date / Time cat dander Allergy Intermediate CONGESTION Verified 06/18/24 09:57 Home Medications Medication Instructions Recorded Confirmed Type amiodarone 200 mg tablet 200 mg PO DAILY 08/05/23 07/13/24 History atorvastatin 80 mg tablet (Lipitor) 80 mg PO QAM 08/05/23 07/13/24 History clopidogrel 75 mg tablet 75 mg PO QAM 08/05/23 07/13/24 History empagliflozin 25 mg tablet 25 mg PO QAM 12/27/23 07/13/24 History (Jardiance) pantoprazole 40 mg tablet,delayed 40 mg PO QAM 12/27/23 07/13/24 History release (Protonix) rivaroxaban 20 mg tablet (Xarelto) 20 mg PO DAILY 12/27/23 07/13/24 History sildenafil 100 mg tablet 100 mg PO DAILY PRN Erectile 12/27/23 07/13/24 History Dysfunction amlodipine 5 mg tablet (Norvasc) 5 mg PO BID #60 tabs 12/31/23 07/13/24 Rx hydralazine 25 mg tablet 25 mg PO TID #100 tabs 12/31/23 07/13/24 Rx magnesium oxide 400 mg (241.3 mg 400 mg PO BID #60 tabs 12/31/23 07/13/24 Rx magnesium) tablet sacubitril 24 mg-valsartan 26 mg 1 tab PO BID 06/18/24 07/13/24 History tablet (Entresto) bumetanide 1 mg tablet 1 mg PO QAM 07/13/24 07/13/24 History gabapentin 600 mg tablet 600 mg PO HS 07/13/24 07/13/24 History potassium chloride 10 mEq 10 meq PO QAM 07/13/24 07/13/24 History tablet,extended release sertraline 50 mg tablet 150 mg PO QAM 07/13/24 07/13/24 History Past Med/Surg History Problem List Cirrhosis of liver (Acute) Anemia (Acute) Acute kidney injury superimposed on CKD (Acute) Abdominal ascites (Acute) C. difficile enteritis Bradycardia Elevated troponin (Acute) Hypokalemia (Acute) Hypomagnesemia (Acute) Syncope (Acute) Unresponsive episode (Acute) Pressure injury of coccygeal region, stage 3 (Acute) DM (diabetes mellitus) Cellulitis in diabetic foot (Acute) Anemia (Acute) Diabetic infection of left foot (Acute) Diabetic infection of left foot Wound infection Surgical wound, non healing Liver mass Hyponatremia Supraventricular tachycardia Atrial fibrillation Multifocal pneumonia (Acute) Sepsis (Acute) Peripheral arterial disease with history of revascularization Ulcer of toe Diabetic foot ulcer Acute kidney injury superimposed on CKD 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 Anxiety (Acute) Chest pain (Acute) DVT prophylaxis Arterial occlusion, lower extremity (Acute) Medical History Anemia CKD (chronic kidney disease) Sacral decubitus ulcer, stage III Chronic pain Thrombocytopenia Acute renal failure Osteomyelitis of foot, left, acute MRSA bacteremia Heart failure with ejection fraction improved from reduced range to preserved range GIB (gastrointestinal bleeding) History of atrial fibrillation CAD (coronary artery disease) s/p CABG x 2 vessel June 2021 Acute HFrEF (heart failure with reduced ejection fraction) Follows with [facility] EF 50-55% per 05/2022 ECHO Cardiomyopathy Dyslipidemia Tobacco abuse smoke-12/day Atherosclerosis of artery of left lower extremity s/p left leg angiogram procedure with SOFTWARE DEVELOPMENT ADVISOR of proximal vein bypass 05/27/23 s/p left leg femoral artery to posterior tibial artery reverse saphenous vein bypass done [place] [facility] [place] s/p left SFA and popliteal stents History of anemia History of anxiety History of alcohol abuse started 1965, quit 1999 Hx of drug abuse started 1965, quit 1999 "used every drug known to man">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, stayed in for 13 years IV drug abuse hx-quit in 1981 History of hepatitis B hx IV drug use Hepatitis C virus has had since the late >no tx, "never had any trouble with it" Heart failure with mid-range ejection fraction Follows with [facility] EF 50-55% per 05/2022 ECHO HTN (hypertension) Surgical History History of amputation of great toe S/P CABG x ~2021, went to ER w/"anxiety," found to be in congestive heart failure, had more cardiac testing, sent for f/u w/[facility] cardio surgeon, done @[facility]; f/u dr. mckeon Hx of cardiac catheterization 06/2021 [facility] History of open reduction and internal fixation (ORIF) procedure rt elbow and lt wrist>hardware intact Hx of colonoscopy History of left knee surgery 1988-tibial plateau reconstruction History of eye surgery retina History of cataract extraction rt/lt Social History Smoking Status: Current every day smoker Tobacco Type: Cigarettes Cigarettes Per Day: 1/2 pack; Second Hand Exposure: No; Do You Dip or Chew Tobacco: No; Tobacco Cessation Education Requested by Patient: No Hx Alcohol Use: No Hx Substance Use: No Preferred Language: Indonesian Communication Ability: 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 Beliefs That Will Affect Care: None Current Living Situation: Alone Current Living Situation Comment: Currently living at home current occupational status: disabled How many Children do You have: 1 Other Information That Helps Us Care for You: No other: Has a caregiver to assist with care Feels Safe at Home: Yes Safety Concerns: Feels Safe At This Time Diet: diabetic and ideal protein Assistive Devices: Glasses Review of Systems Constitutional: + body aches; no fever Eyes: no blind spots Ear, Nose, Mouth, Throat: no ear pain Respiratory: no cough Cardiovascular: no chest pain Gastrointestinal: + abdominal pain and + bloating Genitourinary: no dysuria Musculoskeletal: + back pain Integumentary: no acne Neurologic: no gait abnormality Psychiatric: no behavioral changes Endocrine: no fatigue Hematologic / Lymphatic: no easy bleeding Allergy / Immunological: no GI upset with certain foods Physical Exam Constitutional: WD/WN, vitals as above Eyes: PERRL, conjunctivae normal, anicteric sclerae ENMT: external ear and nose normal, oropharynx normal Neck: trachea midline, no thyromegaly Respiratory: normal respiratory effort Auscultation: + rales (at bases) Cardiovascular: RRR, no murmur, no edema Gastrointestinal (Abdomen): Inspection/Auscultation: + abdomen distended (with positive fluid wave and shifting dullness.Flanks are full. ) Percussion/Palpation: abdomen soft no tenderness Musculoskeletal: no cyanosis or clubbing, extremities motor strength 5/5 Neurologic: PERRL, EOMI, accommodation nl, no face palsy, no dysarthria Psychiatric: A+Ox3, euthymic affect Lymphatic: no cervical or axillary lymphadenopathy Results & Data Results & Data Vital Signs (Past 12 Hours) Vital Signs Temp Pulse Pulse Resp BP BP Pulse Ox 07/13/24 19:12 77 15 137/87 96 07/13/24 18:19 70 15 97 07/13/24 16:37 36.7 C 71 19 126/78 99 O2 Del Method 07/13/24 19:12 Room Air 07/13/24 18:19 Room Air 07/13/24 16:37 Room Air PG Care Time/CCT Total # of Minutes Spent Total Time Spent with Patient: Total time spent is greater than 50% in coordination of care (as documented) at patient's floor/unit and/or counseling patient: Coding Level of Care Code 30227 INT INP/OBS CARE 3/75MIN Diagnoses Cirrhosis of liver K74.60 Ascites presence: with ascites Abdominal ascites R18.8 DM (diabetes mellitus) E11.9 Acute kidney injury superimposed on CKD N17.9; N18.9 Anemia D64.9 Anemia type: unspecified type (1) Cirrhosis of liver Ascites presence: with ascites (5) Anemia Anemia type: unspecified type Qualified Code(s): D64.9 - Anemia, unspecified
[2024-07-13 22:09] LABS: Iron 10 mcg/dl (35-175); Total Iron Binding Cap Calc 500 mcg/dl (250-450); Transferrin 357 mg/dl (200-360); Transferrin (FE) Percent Satur 2 % (20-50)
[2024-07-13] MEDS: amLODIPine BESYLATE 5 MG TAB PO STA (22:20)
[2024-07-13] MEDS: MAGNESIUM OXIDE 400 MG TAB PO STA (22:20)
[2024-07-13] MEDS: hydrALAZINE HCL 25 MG TAB PO STA (22:20)
[2024-07-13 22:29] LABS: Ferritin 12.5 ng/ml (8-388)
[2024-07-13 22:52] LABS: Appearance Urine Clear (Clear); Bacteria Urine Automated None Seen (None Seen); Bilirubin Urine Negative (Negative); Blood Urine Negative (Negative); Cast Urine Automated 0-2 /lpf (0-2); Color Urine Yellow; Epithelial Cell Urine Auto 0-2 /hpf (0-2); Glucose Urine UA 1+ (Negative); Ketones Urine Negative (Negative); Leukocyte Esterase Urine Negative (Negative); Nitrite Urine Negative (Negative); Protein Urine Trace (Negative); RBC Urine Automated 0-2 /hpf (0-2); Specific Gravity Urine 1.037 (1.000-1.030); Urobilinogen Urine Negative (Negative); WBC Urine Automated 0-5 /hpf (0-5)
[2024-07-13] MEDS ORDERED: ACETAMINOPHEN 325 MG TAB PO PRN (23:44)
[2024-07-14] MEDS: MoRPHine SULFATE 2 MG/ML CARP IV PRN ×2 (00:25→03:24)
[2024-07-14] MEDS ORDERED: CARBOHYDRATES FOR HYPOGLYCEMIA PO PRN (02:02)
[2024-07-14] MEDS ORDERED: GLUCAGON FOR INJ 1 MG VIAL SQ PRN (02:02)
[2024-07-14] MEDS ORDERED: DEXTROSE 50% 50 ML SYRINGE IV PRN (02:02)
[2024-07-14] MEDS ORDERED: PHARMACY GLYCEMIC MGMT CONSULT PRN (02:02)
[2024-07-14] MEDS ORDERED: GLUCOSE 10 TAB/TUBE PO PRN (02:02)
[2024-07-14] MEDS ORDERED: GLUCOSE 40% GEL 15 GM TUBE PO PRN (02:02)
[2024-07-14 06:29] LABS: Hematocrit (blood only) 24.8 % (42.0-52.0); Hemoglobin 7.5 g/dl (14.0-18.0)
[2024-07-14 06:30] LABS: Hematocrit (blood only) 25.1 % (42.0-52.0); Hemoglobin 7.5 g/dl (14.0-18.0); Mean Corpuscular Hemoglobin 22.7 pg (25.0-34.0); Mean Corpuscular Hgb Conc 29.9 g/dL (32.0-36.0); Mean Corpuscular Volume 76.1 fL (80.0-100.0); Mean Platelet Volume 11.8 fL (9.4-12.4); Platelet Count 254 K/uL (130-400); RDW Coefficient of Variation 17.3 % (11.5-14.5); RDW Standard Deviation 48.3 fL (36.4-46.3); White Blood Count 5.83 K/ul (4.8-10.8)
[2024-07-14 06:47] LABS: Albumin Globulin Ratio 0.9 (0.9-2); Albumin Level 3.1 gm/dl (3.4-5.0); BUN Creatinine Ratio 22.6 (10-20); Bilirubin,Total 0.6 mg/dl (0.2-1.0); C Reactive Protein 2.31 mg/dl (0-0.5); Calcium 8.1 mg/dl (8.6-10.3); Creatinine Clr Calc Pharmacy 31.1 ml/min; Globulin 3.5 gm/dl (2.5-4.0); Magnesium 2.1 mg/dl (1.7-2.4); Potassium 4.8 mmol/L (3.5-5.1); Total Protein 6.6 gm/dl (6.0-8.3)
[2024-07-14 08:00] LABS: Estimated Average Glucose 151 mg/dl; Hemoglobin A1C 6.9 % (4.5-5.6)
[2024-07-14] MEDS: BUMETANIDE 1 MG TAB PO SCH (08:40)
[2024-07-14] MEDS: amLODIPine BESYLATE 5 MG TAB PO SCH (08:41)
[2024-07-14] MEDS: MAGNESIUM OXIDE 400 MG TAB PO SCH (08:41)
[2024-07-14] MEDS: ATORVASTATIN 40 MG TAB PO SCH (08:41)
[2024-07-14] MEDS: SERTRALINE HCL 50 MG TABLET PO SCH (08:41)
[2024-07-14] MEDS: PANTOprazole 40 MG TAB PO SCH (08:41)
[2024-07-14] MEDS: hydrALAZINE HCL 25 MG TAB PO SCH (08:41)
[2024-07-14] MEDS: AMIODARONE 200 MG TAB PO SCH (08:41)
[2024-07-14] MEDS: INSULIN ASPART PER UNIT CHARGE SC SCH (08:43)
[2024-07-14] MEDS ORDERED: GABAPENTIN 100 MG CAP PO SCH (09:00)
[2024-07-14] MEDS ORDERED: CLOPIDOGREL BISULFATE 75 MG TAB PO SCH (09:00)
[2024-07-14] MEDS ORDERED: RIVAROXABAN 20 MG TAB PO SCH (09:00)
[2024-07-14] MEDS ORDERED: SERTRALINE HCL 50 MG TABLET PO SCH (09:00)
--- NOTE | 2024-07-14 11:06 | Gastrointestinal Consultation ---
Date of Consultation July 14, 2024 Assessment & Plan (1) Cirrhosis of liver: Pleasant gentleman with cirrhosis related to hepatitis C and an apparent liver mass that is growing over the past year. 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 He has new onset ascites and he is on bumex but w ould also add aldactone to his regimen. His anemia could well just be related to his liver disease and it seems to be stable from what it typically was in the past except for last fall. He has had EGD and colonoscopy last year so these do not need to be repeated. I am most concerned about the hepatic lesion at this time. History of Present Illness Reason for Consultation: cirrhosis, anemia Attending Physician: Anibal Tobin History of Present Illness 73 year old man with "newly diagnosed cirrhosis" based on CT scan and anemia. Patient has had longstanding anemia and has had hemoglobin in the 7-8 range throughout the results on the computer except for the month of November last year. He had EGD and colonoscopy back then and was to be set up for capsule endoscopy. CT scan done as an outpatient shows evidence of cirrhosis and ascites. He also has a 5.3 cm mass in his liver. This lesion was 3.[address] of the abdomen in July of last year. He says he has known he has Hep C since "1981" and viral loads were high last year when checked. He says someone said he had a spot on his liver but were not concerned about it or nothing was done about it. He says his abdomen had started swelling over the past 5-7 days. He denies any bleeding and his bowel movements are normal Allergies Allergy/AdvReac Type Severity Reaction Status Date / Time cat dander Allergy Intermediate CONGESTION Verified 06/18/24 09:57 Home Medications Medication Instructions Recorded Confirmed Type amiodarone 200 mg tablet 200 mg PO DAILY 08/05/23 07/13/24 History atorvastatin 80 mg tablet (Lipitor) 80 mg PO QAM 08/05/23 07/13/24 History clopidogrel 75 mg tablet 75 mg PO QAM 08/05/23 07/13/24 History empagliflozin 25 mg tablet 25 mg PO QAM 12/27/23 07/13/24 History (Jardiance) pantoprazole 40 mg tablet,delayed 40 mg PO QAM 12/27/23 07/13/24 History release (Protonix) rivaroxaban 20 mg tablet (Xarelto) 20 mg PO DAILY 12/27/23 07/13/24 History sildenafil 100 mg tablet 100 mg PO DAILY PRN Erectile 12/27/23 07/13/24 History Dysfunction amlodipine 5 mg tablet (Norvasc) 5 mg PO BID #60 tabs 12/31/23 07/13/24 Rx hydralazine 25 mg tablet 25 mg PO TID #100 tabs 12/31/23 07/13/24 Rx magnesium oxide 400 mg (241.3 mg 400 mg PO BID #60 tabs 12/31/23 07/13/24 Rx magnesium) tablet sacubitril 24 mg-valsartan 26 mg 1 tab PO BID 06/18/24 07/13/24 History tablet (Entresto) bumetanide 1 mg tablet 1 mg PO QAM 07/13/24 07/13/24 History gabapentin 600 mg tablet 600 mg PO HS 07/13/24 07/13/24 History potassium chloride 10 mEq 10 meq PO QAM 07/13/24 07/13/24 History tablet,extended release sertraline 50 mg tablet 150 mg PO QAM 07/13/24 07/13/24 History Patient History Medical History Anemia CKD (chronic kidney disease) Sacral decubitus ulcer, stage III Chronic pain Thrombocytopenia Acute renal failure Osteomyelitis of foot, left, acute MRSA bacteremia Heart failure with ejection fraction improved from reduced range to preserved range GIB (gastrointestinal bleeding) History of atrial fibrillation CAD (coronary artery disease) s/p CABG x 2 vessel June 2021 Acute HFrEF (heart failure with reduced ejection fraction) Follows with [facility] EF 50-55% per 05/2022 ECHO Cardiomyopathy Dyslipidemia Tobacco abuse smoke-12/day Atherosclerosis of artery of left lower extremity s/p left leg angiogram procedure with [employer] of proximal vein bypass 05/27/23 s/p left leg femoral artery to posterior tibial artery reverse saphenous vein bypass done at [facility] 02/2023 s/p left SFA and popliteal stents History of anemia History of anxiety History of alcohol abuse started 1965, quit 1999 Hx of drug abuse started 1965, quit 1999 "used every drug known to man">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, stayed in for 13 years IV drug abuse hx-quit in 1982 History of hepatitis B hx IV drug use Hepatitis C virus has had since the late >no tx, "never had any trouble with it" Heart failure with mid-range ejection fraction Follows with [facility] EF 50-55% per 05/2022 ECHO HTN (hypertension) Surgical History History of amputation of great toe S/P CABG x 2 ~2021, went to ER w/"anxiety," found to be in congestive heart failure, had more cardiac testing, sent for f/u w/s cardio surgeon, done @[facility]; f/u dr. mckeon Hx of cardiac catheterization 06/2021 [facility] History of open reduction and internal fixation (ORIF) procedure rt elbow and lt wrist>hardware intact Hx of colonoscopy History of left knee surgery 1988-tibial plateau reconstruction History of eye surgery retina History of cataract extraction rt/lt Social History Smoking Status: Current every day smoker Tobacco Type: Cigarettes Cigarettes Per Day: 1/2 pack; Second Hand Exposure: No; Do You Dip or Chew Tobacco: No; Tobacco Cessation Education Requested by Patient: No Hx Alcohol Use: No Hx Substance Use: No Preferred Language: Romansh Communication Ability: Effective Nutrition Intern Required: No Beliefs That Will Affect Care: None Current Living Situation: Alone Current Living Situation Comment: Currently living at home current occupational status: disabled How many Children do You have: 1 Other Information That Helps Us Care for You: No other: Has a caregiver to assist with care Feels Safe at Home: Yes Safety Concerns: Feels Safe At This Time Diet: diabetic and ideal protein Assistive Devices: Glasses Review of Systems Review of Systems: All systems reviewed & are unremarkable except as noted in HPI & below Physical Exam Constitutional: + ill appearing Neck: trachea midline, no thyromegaly Respiratory: normal respiratory effort, lungs clear to auscultation Cardiovascular: RRR, no murmur, no edema Gastrointestinal (Abdomen): Inspection/Auscultation: + abdomen distended Percussion/Palpation: abdomen nontender Results & Data Vital Signs (Past 12 Hours) Vital Signs Temp Pulse Pulse Resp BP BP Pulse Ox 07/14/24 07:46 36.7 C 70 18 126/74 94 07/14/24 05:50 67 07/14/24 03:20 36.6 C 70 18 129/80 97 07/14/24 03:18 36.6 C 70 18 129/80 97 07/14/24 02:30 36.4 C L 73 18 135/79 97 07/14/24 02:02 07/14/24 01:30 36.4 C L 68 18 131/77 98 07/14/24 01:20 07/14/24 01:20 36.6 C 75 18 146/75 H 97 07/14/24 00:30 36.7 C 72 20 120/76 98 07/14/24 00:30 72 20 120/76 98 07/14/24 00:15 74 20 126/76 97 07/14/24 00:03 74 24 130/67 97 07/14/24 00:00 36.7 C 74 18 130/67 97 07/13/24 23:45 74 20 128/68 97 07/13/24 23:45 36.4 C L 75 18 128/68 97 07/13/24 23:38 75 07/13/24 23:33 74 23 97 07/13/24 23:27 36.8 C 77 20 120/68 98 07/13/24 23:24 74 21 133/76 96 07/13/24 23:03 75 16 135/77 97 Pulse Ox O2 Del Method O2 Del Method O2 Flow Rate 07/14/24 07:46 Room Air 07/14/24 05:50 07/14/24 03:20 07/14/24 03:18 07/14/24 02:30 0 07/14/24 02:02 97 Room Air 07/14/24 01:30 0 07/14/24 01:20 Room Air 07/14/24 01:20 Room Air 07/14/24 00:30 07/14/24 00:30 Room Air 07/14/24 00:15 Room Air 07/14/24 00:03 Room Air 07/14/24 00:00 07/13/24 23:45 Room Air 07/13/24 23:45 07/13/24 23:38 07/13/24 23:33 Room Air 07/13/24 23:27 07/13/24 23:24 07/13/24 23:03 Room Air Laboratory Results 07/14/24 07/14/24 07/14/24 Range/Units 07:53 05:51 05:51 WBC (4.8-10.8) K/ul RBC (4.70-6.10) M/uL Hgb 7.5 L (14.0-18.0) g/dl Hct 24.8 L 25.1 L (42.0-52.0) % MCV 76.1 L (80.0-100.0) fL MCH 22.7 L (25.0-34.0) pg MCHC 29.9 L (32.0-36.0) g/dL RDW Std Deviation 48.3 H (36.4-46.3) fL RDW Coeff of Josh 17.3 H (11.5-14.5) % Plt Count 254 (130-400) K/uL MPV 11.8 (9.4-12.4) fL PT (9.0-12.0) Seconds INR (0.9-1.1) APTT (21-31) Seconds PTT Ratio Sodium 136 (136-145) mmol/L Potassium 4.8 (3.5-5.1) mmol/L Chloride 107 (98-107) mmol/L Carbon Dioxide 22 (21-32) mmol/L Anion Gap 7 (3-11) BUN 60 H (6-23) mg/dl Creatinine 2.65 H (0.6-1.4) mg/dl Est Cr Clr Drug Dosing 31.1 eGFR 24.83 BUN/Creatinine Ratio 22.6 H (10-20) Glucose 110 H (70-99(Fasting)) mg/dl POC Glucose 120 H (70-99) mg/dl Estimat Average Glucose 151 mg/dl Hemoglobin A1c 6.9 H (4.5-5.6) % Calcium 8.1 L (8.6-10.3) mg/dl Phosphorus 5.0 H (2.5-4.9) mg/dl Magnesium 2.1 (1.7-2.4) mg/dl Iron (35-175) mcg/dl TIBC (250-450) mcg/dl Transferrin (200-360) mg/dl Transferrin % Sat (20-50) % Ferritin (8-388) ng/ml Total Bilirubin 0.6 (0.2-1.0) mg/dl AST 9 L (13-39) U/L ALT 4 L (7-52) U/L Alkaline Phosphatase 98 (34-104) U/L Troponin I High Sens (0-20) pg/ml C-Reactive Protein 2.31 H (0-0.5) mg/dl B-Natriuretic Peptide (0-100) pg/ml Total Protein 6.6 (6.0-8.3) gm/dl Albumin 3.1 L (3.4-5.0) gm/dl Globulin 3.5 (2.5-4.0) gm/dl Albumin/Globulin Ratio 0.9 (0.9-2) Tumor Marker AFP Pending Procalcitonin Pending Urine Color Urine Appearance (Clear) Urine pH (4.5-7.5) Ur Specific Pisek (1.000-1.030) Urine Protein (Negative) Urine Glucose (UA) (Negative) Urine Ketones (Negative) Urine Blood (Negative) Urine Nitrite (Negative) Urine Bilirubin (Negative) Urine Urobilinogen (Negative) Ur Leukocyte Esterase (Negative) Urine WBC (Auto) (0-5) /hpf Urine RBC (Auto) (0-2) /hpf U Hyaline Cast (Auto) (0-2) /lpf U Epithel Cells (Auto) (0-2) /hpf Urine Bacteria (Auto) (None Seen) Urine Comment Nasal Screen MRSA (PCR) (Negative) Blood Type Antibody Screen Antibody Identification Antibody ID Comment Elution Direct Antiglob Test (Negative) UZAIR (IgG-AHG) (Negative) UZAIR, Polyspecific (Negative) UZAIR C3b, C3d 5 Min (Negative) Crossmatch 07/14/24 07/13/24 07/13/24 Range/Units 05:51 Unknown 22:52 WBC 5.83 (4.8-10.8) K/ul RBC 3.30 L (4.70-6.10) M/uL Hgb 7.5 L (14.0-18.0) g/dl Hct (42.0-52.0) % MCV (80.0-100.0) fL MCH (25.0-34.0) pg MCHC (32.0-36.0) g/dL RDW Std Deviation (36.4-46.3) fL RDW Coeff of Josh (11.5-14.5) % Plt Count (130-400) K/uL MPV (9.4-12.4) fL PT (9.0-12.0) Seconds INR (0.9-1.1) APTT (21-31) Seconds PTT Ratio Sodium (136-145) mmol/L Potassium (3.5-5.1) mmol/L Chloride (98-107) mmol/L Carbon Dioxide (21-32) mmol/L Anion Gap (3-11) BUN (6-23) mg/dl Creatinine (0.6-1.4) mg/dl Est Cr Clr Drug Dosing eGFR BUN/Creatinine Ratio (10-20) Glucose (70-99(Fasting)) mg/dl POC Glucose (70-99) mg/dl Estimat Average Glucose mg/dl Hemoglobin A1c (4.5-5.6) % Calcium (8.6-10.3) mg/dl Phosphorus (2.5-4.9) mg/dl Magnesium (1.7-2.4) mg/dl Iron (35-175) mcg/dl TIBC (250-450) mcg/dl Transferrin (200-360) mg/dl Transferrin % Sat (20-50) % Ferritin (8-388) ng/ml Total Bilirubin (0.2-1.0) mg/dl AST (13-39) U/L ALT (7-52) U/L Alkaline Phosphatase (34-104) U/L Troponin I High Sens (0-20) pg/ml C-Reactive Protein (0-0.5) mg/dl B-Natriuretic Peptide (0-100) pg/ml Total Protein (6.0-8.3) gm/dl Albumin (3.4-5.0) gm/dl Globulin (2.5-4.0) gm/dl Albumin/Globulin Ratio (0.9-2) Tumor Marker AFP Procalcitonin Urine Color Yellow Urine Appearance Clear (Clear) Urine pH 5.0 (4.5-7.5) Ur Specific Pisek 1.037 H (1.000-1.030) Urine Protein Trace H (Negative) Urine Glucose (UA) 1+ H (Negative) Urine Ketones Negative (Negative) Urine Blood Negative (Negative) Urine Nitrite Negative (Negative) Urine Bilirubin Negative (Negative) Urine Urobilinogen Negative (Negative) Ur Leukocyte Esterase Negative (Negative) Urine WBC (Auto) 0-5 (0-5) /hpf Urine RBC (Auto) 0-2 (0-2) /hpf U Hyaline Cast (Auto) 0-2 (0-2) /lpf U Epithel Cells (Auto) 0-2 (0-2) /hpf Urine Bacteria (Auto) None Seen (None Seen) Urine Comment Nasal Screen MRSA (PCR) Negative (Negative) Blood Type Antibody Screen Antibody Identification Antibody ID Comment Elution Direct Antiglob Test (Negative) UZAIR (IgG-AHG) (Negative) UZAIR, Polyspecific (Negative) UZAIR C3b, C3d 5 Min (Negative) Crossmatch 07/13/24 07/13/24 Range/Units 18:22 12:10 WBC 6.24 (4.8-10.8) K/ul RBC 3.22 L (4.70-6.10) M/uL Hgb 7.1 L (14.0-18.0) g/dl Hct 24.1 L (42.0-52.0) % MCV 74.8 L (80.0-100.0) fL MCH 22.0 L (25.0-34.0) pg MCHC 29.5 L (32.0-36.0) g/dL RDW Std Deviation 45.9 (36.4-46.3) fL RDW Coeff of Josh 17.0 H (11.5-14.5) % Plt Count 288 (130-400) K/uL MPV 11.7 (9.4-12.4) fL PT 11.9 (9.0-12.0) Seconds INR 1.1 (0.9-1.1) APTT 22 (21-31) Seconds PTT Ratio 0.8 Sodium 134 L (136-145) mmol/L Potassium 5.3 H (3.5-5.1) mmol/L Chloride 106 (98-107) mmol/L Carbon Dioxide 21 (21-32) mmol/L Anion Gap 7 (3-11) BUN 62 H (6-23) mg/dl Creatinine 2.80 H D (0.6-1.4) mg/dl Est Cr Clr Drug Dosing Not Reportable eGFR 23.24 BUN/Creatinine Ratio 22.1 H (10-20) Glucose 134 H (70-99(Fasting)) mg/dl POC Glucose (70-99) mg/dl Estimat Average Glucose mg/dl Hemoglobin A1c (4.5-5.6) % Calcium 8.4 L (8.6-10.3) mg/dl Phosphorus (2.5-4.9) mg/dl Magnesium (1.7-2.4) mg/dl Iron 10 L (35-175) mcg/dl TIBC 500 H (250-450) mcg/dl Transferrin 357 (200-360) mg/dl Transferrin % Sat 2 L (20-50) % Ferritin 12.5 (8-388) ng/ml Total Bilirubin 0.4 (0.2-1.0) mg/dl AST 10 L (13-39) U/L ALT 5 L (7-52) U/L Alkaline Phosphatase 110 H (34-104) U/L Troponin I High Sens 29.1 H (0-20) pg/ml C-Reactive Protein (0-0.5) mg/dl B-Natriuretic Peptide 935 H (0-100) pg/ml Total Protein 7.3 (6.0-8.3) gm/dl Albumin 3.3 L (3.4-5.0) gm/dl Globulin 4.0 (2.5-4.0) gm/dl Albumin/Globulin Ratio 0.8 L (0.9-2) Tumor Marker AFP Procalcitonin Urine Color Urine Appearance (Clear) Urine pH (4.5-7.5) Ur Specific Pisek (1.000-1.030) Urine Protein (Negative) Urine Glucose (UA) (Negative) Urine Ketones (Negative) Urine Blood (Negative) Urine Nitrite (Negative) Urine Bilirubin (Negative) Urine Urobilinogen (Negative) Ur Leukocyte Esterase (Negative) Urine WBC (Auto) (0-5) /hpf Urine RBC (Auto) (0-2) /hpf U Hyaline Cast (Auto) (0-2) /lpf U Epithel Cells (Auto) (0-2) /hpf Urine Bacteria (Auto) (None Seen) Urine Comment Nasal Screen MRSA (PCR) (Negative) Blood Type A Positive Antibody Screen POSITIVE A Antibody Identification Anti-E Antibody ID Comment Pending Elution Direct Antiglob Test Positive A (Negative) UZAIR (IgG-AHG) Weak Pos A (Negative) UZAIR, Polyspecific Weak Pos A (Negative) UZAIR C3b, C3d 5 Min Neg (Negative) Crossmatch See Detail Diagnostic Findings Chest X-Ray 07/13/24 18:19 Chest radiograph, one view History: Swelling Comparison: 07/11/2024 Findings: Single AP view of the chest performed. No focal consolidation or pleural effusion. No pneumothorax. The cardiomediastinal silhouette is within normal limits. Normal pulmonary vascularity. No evidence for lymphadenopathy. No visualized bony or soft tissue abnormality. Chronic bilateral rib deformities. Impression: Normal chest radiograph Electronically signed by Elmer Martinez 07-13-2024 6:59 PM (1) Cirrhosis of liver Ascites presence: with ascites
[2024-07-14] MEDS: SPIRONOLACTONE 100 MG TAB PO ONE (18:10)
[2024-07-14] MEDS: ALBUMIN 25% 25 GM/100 ML VIAL IV SCH (18:10)
[2024-07-14] MEDS: GABAPENTIN 600 MG TAB PO SCH (20:38)
--- NOTE | 2024-07-14 23:48 | Hospitalist Progress Note ---
Date of Service July 14, 2024 Assessment & Plan (1) Cirrhosis of liver: Plan: Newly suspected due to imaging on CT scan as well as ascities. Patient will be admitted to medical. ordered albumin and aldactone. will reassess in AM may need therapeutic paracenthesis consulted GI: appreciate input. (2) Abdominal ascites: Plan: may need paracenthesis (3) DM (diabetes mellitus): Plan: a1c:ABOVE 6.[address] insulin coverage. (4) Acute kidney injury superimposed on CKD: Plan: ordered aldactone and albumin marilin monitor. (5) Anemia: Plan: will hold anticoagulant and monitor iron Admission and Anticipated Discharge Date Admission Date: July 13, 2024 Subjective Patient reports no new symptoms. Review of Systems Review of Systems: All systems reviewed & are unremarkable except as noted in HPI & below Physical Exam Constitutional: WD/WN, vitals as above Eyes: PERRL, conjunctivae normal, anicteric sclerae ENMT: external ear and nose normal, oropharynx normal Neck: trachea midline, no thyromegaly Respiratory: normal respiratory effort Auscultation: + rales (at bases) Cardiovascular: RRR, no murmur, no edema Gastrointestinal (Abdomen): Inspection/Auscultation: + abdomen distended (with positive fluid wave and shifting dullness.Flanks are full. ) Percussion/Palpation: abdomen soft Musculoskeletal: no cyanosis or clubbing, extremities motor strength 5/5 Neurologic: PERRL, EOMI, accommodation nl, no face palsy, no dysarthria Psychiatric: A+Ox3, euthymic affect Lymphatic: no cervical or axillary lymphadenopathy Results & Data Results & Data Vital Signs (Past 12 Hours) Vital Signs Temp Pulse Pulse Resp BP Pulse Ox O2 Del Method 07/14/24 22:35 36.4 C L 70 18 125/77 93 Room Air 07/14/24 19:22 36.4 C L 68 18 135/78 95 Room Air 07/14/24 15:24 36.7 C 73 20 122/78 95 Room Air 07/14/24 13:02 85 PG Care Time/CCT Total # of Minutes Spent Total Time Spent with Patient: Total time spent is greater than 50% in coordination of care (as documented) at patient's floor/unit and/or counseling patient: Coding Level of Care Code 81667 SUB INP/OBS CARE 3/50MIN Diagnoses Cirrhosis of liver K74.60 Ascites presence: with ascites Abdominal ascites R18.8 DM (diabetes mellitus) E11.9 Acute kidney injury superimposed on CKD N17.9; N18.9 Anemia D64.9 Anemia type: unspecified type (1) Cirrhosis of liver Ascites presence: with ascites (5) Anemia Anemia type: unspecified type Qualified Code(s): D64.9 - Anemia, unspecified
[2024-07-15 05:53] LABS: Hematocrit (blood only) 23.1 % (42.0-52.0); Mean Corpuscular Hemoglobin 23.3 pg (25.0-34.0); Mean Corpuscular Hgb Conc 30.3 g/dL (32.0-36.0); Mean Corpuscular Volume 76.7 fL (80.0-100.0); Mean Platelet Volume 11.4 fL (9.4-12.4); Platelet Count 227 K/uL (130-400); RDW Coefficient of Variation 17.3 % (11.5-14.5); RDW Standard Deviation 48.5 fL (36.4-46.3); Red Blood Count 3.01 M/uL (4.70-6.10); White Blood Count 5.18 K/ul (4.8-10.8)
[2024-07-15 06:08] LABS: Albumin Globulin Ratio 1.4 (0.9-2); Albumin Level 3.9 gm/dl (3.4-5.0); Bilirubin,Total 0.5 mg/dl (0.2-1.0); C Reactive Protein 2.35 mg/dl (0-0.5); Calcium 8.4 mg/dl (8.6-10.3); Creatinine Clr Calc Pharmacy 30.7 ml/min; Globulin 2.8 gm/dl (2.5-4.0); Potassium 4.8 mmol/L (3.5-5.1); Total Protein 6.7 gm/dl (6.0-8.3)
[2024-07-15 06:21] LABS: Prothrombin Time 11.2 Seconds (9.0-12.0)
[2024-07-15] MEDS: ALBUMIN 25% 25 GM/100 ML VIAL IV SCH (16:12)
[2024-07-15 16:37] LABS: Hematocrit (blood only) 24.3 % (42.0-52.0); Hemoglobin 7.2 g/dl (14.0-18.0)
[2024-07-15] MEDS: SPIRONOLACTONE 100 MG TAB PO SCH (17:22)
--- NOTE | 2024-07-15 22:45 | Hospitalist Progress Note ---
Date of Service July 15, 2024 Assessment & Plan (1) Cirrhosis of liver: Plan: Newly suspected due to imaging on CT scan as well as ascities. Patient will be admitted to medical. ordered albumin and aldactone again on 07/15 will need therapeutic paracenthesis consulted GI: appreciate input. (2) Abdominal ascites: Plan: will need paracenthesis ordered for tomorrow. (3) DM (diabetes mellitus): Plan: a1c:ABOVE 6.[address] insulin coverage. (4) Acute kidney injury superimposed on CKD: Plan: ordered aldactone and albumin marilin monitor. (5) Anemia: Plan: will hold anticoagulant and monitor iron Admission and Anticipated Discharge Date Admission Date: July 13, 2024 Subjective Patient reports breathing slightly better. He has no new complaints. Physical Exam Constitutional: WD/WN, vitals as above Eyes: PERRL, conjunctivae normal, anicteric sclerae ENMT: external ear and nose normal, oropharynx normal Neck: trachea midline, no thyromegaly Respiratory: normal respiratory effort Auscultation: + rales (at bases) Cardiovascular: RRR, no murmur, no edema Gastrointestinal (Abdomen): Inspection/Auscultation: + abdomen distended (with positive fluid wave and shifting dullness.Flanks are full. ) Percussion/Palpation: abdomen soft Musculoskeletal: no cyanosis or clubbing, extremities motor strength 5/5 Neurologic: PERRL, EOMI, accommodation nl, no face palsy, no dysarthria Psychiatric: A+Ox3, euthymic affect Lymphatic: no cervical or axillary lymphadenopathy Results & Data Results & Data Vital Signs (Past 12 Hours) Vital Signs Temp Pulse Pulse Resp BP Pulse Ox O2 Del Method 07/15/24 20:18 Room Air 07/15/24 19:35 36.6 C 71 18 131/76 93 Room Air 07/15/24 15:32 36.3 C L 68 16 126/71 94 Room Air 07/15/24 13:02 80 07/15/24 12:14 36.5 C 71 20 107/64 91 Room Air PG Care Time/CCT Total # of Minutes Spent Total Time Spent with Patient: Total time spent is greater than 50% in coordination of care (as documented) at patient's floor/unit and/or counseling patient: Coding Level of Care Code 50755 SUB INP/OBS CARE 3/50MIN Diagnoses Cirrhosis of liver K74.60 Ascites presence: with ascites Abdominal ascites R18.8 DM (diabetes mellitus) E11.9 Acute kidney injury superimposed on CKD N17.9; N18.9 Anemia D64.9 Anemia type: unspecified type (1) Cirrhosis of liver Ascites presence: with ascites (5) Anemia Anemia type: unspecified type Qualified Code(s): D64.9 - Anemia, unspecified
[2024-07-16 08:00] LABS: Hematocrit (blood only) 24.6 % (42.0-52.0); Hemoglobin 7.3 g/dl (14.0-18.0); Mean Corpuscular Hemoglobin 22.5 pg (25.0-34.0); Mean Corpuscular Hgb Conc 29.7 g/dL (32.0-36.0); Mean Corpuscular Volume 75.7 fL (80.0-100.0); Mean Platelet Volume 11.2 fL (9.4-12.4); Platelet Count 248 K/uL (130-400); RDW Coefficient of Variation 17.4 % (11.5-14.5); RDW Standard Deviation 47.7 fL (36.4-46.3); Red Blood Count 3.25 M/uL (4.70-6.10); White Blood Count 5.84 K/ul (4.8-10.8)
[2024-07-16 08:24] LABS: Albumin Globulin Ratio 1.5 (0.9-2); BUN Creatinine Ratio 22.5 (10-20); Bilirubin,Total 0.4 mg/dl (0.2-1.0); Calcium 8.6 mg/dl (8.6-10.3); Creatinine Clr Calc Pharmacy 33.7 ml/min; Globulin 2.7 gm/dl (2.5-4.0); Potassium 4.8 mmol/L (3.5-5.1); Total Protein 6.7 gm/dl (6.0-8.3)
--- NOTE | 2024-07-16 10:52 | Gastroenterology Progress Note ---
Date of Service July 16, 2024 Assessment & Plan (1) Cirrhosis of liver: (2) Liver mass: (3) Abdominal ascites: Plan - proceed with paracentesis. - I discussed with the patient about the importance of seeing hepatology given liver mass as well as untreated hep C. he voiced understanding. he would be agreeable to seeing hepatology at [facility]. will have set up. - will also work on getting him set up for capsule endoscopy as recommended when we last saw him given ongoing anemia. Admission and Anticipated Discharge Date Admission Date: July 13, 2024 Supervising Physician Co-Signing Physician Notes New onset ascites. Most likely related to cirrhosis portal hypertension. Patient also has acute kidney injury. Rule out SBP. Ascites was described as 5 L nonbloody. Questionable hepatoma on imaging. Lesion increased from 3 cm to 5+ centimeters last 6 months or so. Known hepatitis C positive. Patient should seek hepatology follow-up at discharge. Further evaluation for possible hepatoma. I would point out that his alpha-fetoprotein is normal. Also for consideration of treating his hepatitis C. Hepatitis C treatment and decompensated cirrhosis has risks. He appears to be iron deficient. Fairly recent EGD: Does not need to be repeated. Recommend treat with IV iron for repletion. Subjective His biggest concern is the fluid in his abdomen which has made him uncomfortable. Spoke with nursing, he has orders for paracentesis which may be done today. He was to see Hepatology last year for liver lesion, but he admits he never set up. our office had been unable to reach him. He was also supposed to have a capsule endoscopy but did not have done. "the less Doctors I see, the better". The remainder of the GI ROS were unremarkable. Review of Systems Review of Systems: All systems reviewed & are unremarkable except as noted in HPI & below Physical Exam Constitutional: WD/WN, vitals as above Respiratory: normal respiratory effort, lungs clear to auscultation Cardiovascular: Rate/Rhythm: regular rate and regular rhythm Gastrointestinal (Abdomen): ascites. normal bowel sounds. nontender. Psychiatric: Orientation: alert and oriented x 3 Results & Data Results & Data Vital Signs (Past 12 Hours) Vital Signs Temp Pulse Pulse Resp BP Pulse Ox O2 Del Method 07/16/24 08:21 Room Air 07/16/24 07:36 97.3 F L 75 20 142/77 H 91 Room Air 07/16/24 06:45 71 07/16/24 02:44 97.2 F L 73 18 144/79 H 92 Room Air Coding Level of Care Code 88503 SUB INP/OBS CARE 2/35MIN Diagnoses Cirrhosis of liver K74.60 Ascites presence: with ascites Liver mass R16.0 Abdominal ascites R18.8 (1) Cirrhosis of liver Ascites presence: with ascites
--- NOTE | 2024-07-16 11:36 | Electrocardiogram Report ---
Test Reason : Blood Pressure : */* mmHG Vent. Rate : 67 BPM Atrial Rate : 67 BPM P-R Int : 156 ms QRS Dur : 110 ms QT Int : 446 ms P-R-T Axes : 23 -38 129 degrees QTcB Int : 471 ms Normal sinus rhythm Left axis deviation Septal infarct , age undetermined Possible Lateral infarct , age undetermined Abnormal ECG When compared with ECG of 18-Jun-2024 09:48, Septal infarct is now Present Borderline criteria for Lateral infarct are now Present Confirmed by Feliz Austin ([id number]) on 07/16/2024 11:36:13 AM Referred By: Elmer Fraire Confirmed By: Feliz Austin
--- NOTE | 2024-07-16 14:46 | Ultrasound Report ---
ULTRASOUND-GUIDED PARACENTESIS CLINICAL HISTORY: Ascites PROCEDURE: Procedure and risks were explained. Informed consent was obtained. A final timeout was com pleted. A pocket of ascites was identified in the right lower quadrant. The left lower quadrant was p repped and draped in sterile fashion. 1% lidocaine was utilized for skin anesthesia. Utilizing ultrasound guidance, a 5 Iraqi safety centesis catheter was advanced into the pocket of as citeyesenia. Ultrasound image was obtained. A total of 5 L of yellow ascites fluid was removed, with 1 L se nt to lab. The catheter was removed and Band-Aid applied. The patient tolerated the procedure well. V ital signs will be monitored postprocedure. IMPRESSION: Ultrasound-guided paracentesis as above. Performed, dictated, and signed by Simone Land PA-C; to be co-signed by Dr. Florencio Smith. Electronically signed by: Florencio Smith M.D. 07/16/2024 2:51 PM
[2024-07-16 16:05] LABS: Appearance Peritoneal Fluid Clear; Color Peritoneal Fluid Pale Yellow; RBC Peritoneal Fluid Auto < 2000 /uL; WBC Peritoneal Fluid Auto 214 /ul (0-300)
[2024-07-16 16:13] LABS: Albumin Peritoneal Fluid 1.9 gm/dl; Total Protein Peritoneal Fluid 3.8 gm/dl
[2024-07-16] MEDS: ALBUMIN 25% 12.5 GM/50 ML VIAL IV SCH (16:23)
[2024-07-16] MEDS ORDERED: SODIUM CHLORIDE 0.9% 100 ML IV PRN (17:32)
--- NOTE | 2024-07-16 18:38 | Hospitalist Progress Note ---
Date of Service July 16, 2024 Assessment & Plan (1) Cirrhosis of liver: Plan: Newly suspected due to imaging on CT scan as well as ascities. Patient will be admitted to medical. ordered albumin on 07/16 will need therapeutic paracenthesis consulted GI: appreciate input. (2) Abdominal ascites: Plan: s/p 5 liters of paracenthesis ordered additional albumin awaiting studies of peritoneal fluid (3) DM (diabetes mellitus): Plan: a1c:ABOVE 6.[address] insulin coverage. (4) Acute kidney injury superimposed on CKD: Plan: ordered albumin will monitor. (5) Anemia: Plan: will hold anticoagulant and monitor iron Admission and Anticipated Discharge Date Admission Date: July 13, 2024 Subjective Patient reports breathing better after paracenthesis Physical Exam Constitutional: WD/WN, vitals as above Eyes: PERRL, conjunctivae normal, anicteric sclerae ENMT: external ear and nose normal, oropharynx normal Neck: trachea midline, no thyromegaly Respiratory: normal respiratory effort Auscultation: + rales (at bases) Cardiovascular: RRR, no murmur, no edema Gastrointestinal (Abdomen): Inspection/Auscultation: + abdomen distended (decreased distention) Percussion/Palpation: abdomen soft Musculoskeletal: no cyanosis or clubbing, extremities motor strength 5/5 Neurologic: PERRL, EOMI, accommodation nl, no face palsy, no dysarthria Psychiatric: A+Ox3, euthymic affect Lymphatic: no cervical or axillary lymphadenopathy Results & Data Results & Data Vital Signs (Past 12 Hours) Vital Signs Temp Pulse Pulse Resp BP BP Pulse Ox 07/16/24 16:30 36.5 C 69 16 120/70 95 07/16/24 16:00 36.6 C 72 16 130/68 93 07/16/24 15:30 36.6 C 72 17 121/71 93 07/16/24 15:00 36.5 C 72 17 133/63 97 07/16/24 14:45 36.6 C 73 18 123/69 96 07/16/24 13:05 74 07/16/24 11:18 36.6 C 75 20 105/61 92 07/16/24 08:21 07/16/24 07:36 36.3 C L 75 20 142/77 H 91 07/16/24 06:45 71 O2 Del Method 07/16/24 16:30 Room Air 07/16/24 16:00 Room Air 07/16/24 15:30 Room Air 07/16/24 15:00 Room Air 07/16/24 14:45 Room Air 07/16/24 13:05 07/16/24 11:18 Room Air 07/16/24 08:21 Room Air 07/16/24 07:36 Room Air 07/16/24 06:45 PG Care Time/CCT Total # of Minutes Spent Total Time Spent with Patient: Total time spent is greater than 50% in coordination of care (as documented) at patient's floor/unit and/or counseling patient: Coding Level of Care Code 76528 SUB INP/OBS CARE 350MIN Diagnoses Cirrhosis of liver K74.60 Ascites presence: with ascites Abdominal ascites R18.8 DM (diabetes mellitus) E11.9 Acute kidney injury superimposed on CKD N17.9; N18.9 Anemia D64.9 Anemia type: unspecified type (1) Cirrhosis of liver Ascites presence: with ascites (5) Anemia Anemia type: unspecified type Qualified Code(s): D64.9 - Anemia, unspecified
[2024-07-17 06:46] LABS: Lymphocytes, Fluid 48 %; Mono,Macrophage,Mesothelial 47 %; Neutrophils, Fluid 5 %
[2024-07-17 07:49] VITALS: O2SAT 90
[2024-07-17 09:52] LABS: Hematocrit (blood only) 27.5 % (42.0-52.0); Hemoglobin 8.8 g/dl (14.0-18.0); Mean Corpuscular Hemoglobin 24.2 pg (25.0-34.0); Mean Corpuscular Volume 75.8 fL (80.0-100.0); Mean Platelet Volume 11.8 fL (9.4-12.4); Platelet Count 234 K/uL (130-400); RDW Coefficient of Variation 17.7 % (11.5-14.5); Red Blood Count 3.63 M/uL (4.70-6.10); White Blood Count 6.13 K/ul (4.8-10.8)
[2024-07-17 10:31] LABS: Alanine Aminotransferase < 3 U/L (7-52); Albumin Globulin Ratio 1.2 (0.9-2); Albumin Level 3.7 gm/dl (3.4-5.0); Alkaline Phosphatase 69 U/L (34-104); Anion Gap 7 (3-11); Aspartate Aminotransferase 8 U/L (13-39); BUN Creatinine Ratio 22.9 (10-20); Bilirubin,Total 1.2 mg/dl (0.2-1.0); Blood Urea Nitrogen 52 mg/dl (6-23); Calcium 8.5 mg/dl (8.6-10.3); Carbon Dioxide 22 mmol/L (21-32); Chloride 106 mmol/L (98-107); Creatinine Clr Calc Pharmacy 36.2 ml/min; Glucose 114 mg/dl (70-99(Fasting)); Potassium 4.8 mmol/L (3.5-5.1); Sodium 135 mmol/L (136-145); Total Protein 6.7 gm/dl (6.0-8.3)
--- NOTE | 2024-07-17 10:34 | Gastroenterology Progress Note ---
Date of Service July 17, 2024 Assessment & Plan (1) Cirrhosis of liver: (2) Abdominal ascites: Plan Patient feels improved s/p paracentesis. - I discussed with the patient about the importance of seeing hepatology given liver mass as well as untreated hep C. he voiced understanding. Referrals have been placed in the outpatient office to be set up. he will follow with hepatology as outpatient. - I also placed a referral for capsule endoscopy to evaluate anemia. He seems unsure about doing this, but would recommend this to evaluate his small bowel. - continue with diuretics. Admission and Anticipated Discharge Date Admission Date: July 13, 2024 Subjective Patient reports feeling much improved after paracentesis yesterday. 5 L taken. not consistent with SBP. The remainder of the GI ROS were unremarkable. Review of Systems Review of Systems: All systems reviewed & are unremarkable except as noted in HPI & below Physical Exam Constitutional: WD/WN, vitals as above Respiratory: normal respiratory effort, lungs clear to auscultation Cardiovascular: Rate/Rhythm: regular rate and regular rhythm Gastrointestinal (Abdomen): normal bowel sounds, soft, nontender, no hepatosplenomegaly Psychiatric: Orientation: alert and oriented x 3 Affect: euthymic affect Results & Data Results & Data Vital Signs (Past 12 Hours) Vital Signs Temp Pulse Pulse Resp BP BP Pulse Ox 07/17/24 07:48 98.1 F 79 18 104/57 L 90 07/17/24 02:10 97.9 F 79 20 130/68 93 07/17/24 01:16 98.6 F 74 18 134/70 92 07/17/24 00:16 98.1 F 74 20 145/73 H 94 07/16/24 23:46 97.9 F 75 18 134/72 94 07/16/24 23:31 98.1 F 72 18 144/70 H 96 07/16/24 23:10 98.6 F 75 18 130/74 93 07/16/24 23:00 75 O2 Del Method 07/17/24 07:48 Room Air 07/17/24 02:10 07/17/24 01:16 07/17/24 00:16 07/16/24 23:46 07/16/24 23:31 07/16/24 23:10 07/16/24 23:00 Coding Level of Care Code 93536 SUB INP/OBS CARE 03/24MIN Diagnoses Cirrhosis of liver K74.60 Ascites presence: with ascites Abdominal ascites R18.8 (1) Cirrhosis of liver Ascites presence: with ascites
[2024-07-17 11:09] VITALS: BP 97/54; PULSE 73; RESP 17; TEMP 97.5
--- NOTE | 2024-07-18 08:58 | Discharge Summary ---
Discharge Summary Date of Service July 17, 2024 Principal Dx & Hospital Course #1 = Principal Diagnosis (1) Cirrhosis of liver: Newly suspected due to imaging on CT scan as well as ascities. Patient will be admitted to medical. ordered albumin on 07/16 will need therapeutic paracenthesis consulted GI: appreciate input. (2) Abdominal ascites: s/p 5 liters of paracenthesis ordered additional albumin awaiting studies of peritoneal fluid (3) DM (diabetes mellitus): a1c:ABOVE 6.[address] insulin coverage. (4) Acute kidney injury superimposed on CKD: ordered albumin will monitor. (5) Anemia: will hold anticoagulant and monitor iron Admission HPI Per Admitting Provider Patient is a 73 yo male with PMH of Afib, CKD< CHF, diabetes. Patient reports over the past week, he has noticed worsening abdominal swelling. He reports during this time his lower back hurts now.Patient reports being more SOB now. He states he has some orthopnea. Denies pedal edema. Patient was seen by PCP and switched his diuretics from lasix to bumex. Blood work showed anemia and FLORECITA. Patient then had a CT scan and was referred to the ED Discharge Exam Constitutional WD/WN, vitals as above Eyes PERRL, conjunctivae normal, anicteric sclerae ENMT external ear and nose normal, oropharynx normal Neck trachea midline, no thyromegaly Respiratory normal respiratory effort Auscultation: + rales (at bases) Cardiovascular RRR, no murmur, no edema Gastrointestinal (Abdomen) Inspection/Auscultation: + abdomen distended (decreased distention) Percussion/Palpation: abdomen soft Musculoskeletal no cyanosis or clubbing, extremities motor strength 5/5 Neurologic PERRL, EOMI, accommodation nl, no face palsy, no dysarthria Psychiatric A+Ox3, euthymic affect Lymphatic no cervical or axillary lymphadenopathy Discharge Plan Discharge Items Patient Disposition: Home - Self-Care Reason For Visit: ANEMIA, FLORECITA Discharge Diagnosis: anemia Condition on Discharge: Fair Activity: Resume your previous activity Non-emergency contact: Primary Care Provider Call non-emergency contact if: you have any medication questions Follow-up/Referrals: Elmer Fraire MD [Primary Care Provider] - (PLEASE CALL YOUR PRIMARY CARE PROVIDER TO SCHEDULE A HOSPITAL FOLLOW-UP APPOINTMENT WITHIN 7-10 DAYS) Brianna Catalan DO [Physician] - 07/25/24 10:00 am (at [facility] ) Diet: Carb Consistent or DM2, Low Fat and Low Sodium (2gm) Addtl Attending Provider Instructions: Please followup with hepatology at [facility]. Will also set you up with a capsule endoscopy. Please followup with Dr. Fraire tomorrow. Pending Studies at Discharge: No Stand-Alone Forms: My [facility] [employer], Smoking Cessation Medications and DC Order Prescriptions: New spironolactone 100 mg Tablet 100 mg PO QAM Qty: 30 0RF Continued atorvastatin [Lipitor] 80 mg Tablet 80 mg PO QAM amiodarone 200 mg Tablet 200 mg PO DAILY sildenafil 100 mg tablet 100 mg PO DAILY PRN (Reason: Erectile Dysfunction) pantoprazole [Protonix] 40 mg Tablet,Delayed Release (Dr/Ec) 40 mg PO QAM Jardiance 25 mg Tablet 25 mg PO QAM hydralazine 25 mg Tablet 25 mg PO TID Qty: 100 0RF amlodipine [Norvasc] 5 mg Tablet 5 mg PO BID Qty: 60 0RF magnesium oxide 400 mg (241.3 mg magnesium) Tablet 400 mg PO BID Qty: 60 0RF gabapentin 600 mg tablet 600 mg PO HS sertraline 50 mg tablet 150 mg PO QAM Held Entresto 24-26 mg tablet 1 tab PO BID Hold Instructions: Provider's Order resume as per Dr. Fraire clopidogrel 75 mg tablet 75 mg PO QAM Hold Instructions: Provider's Order until seen By Dr. Fraire Xarelto 20 mg Tablet 20 mg PO DAILY Hold Instructions: Provider's Order Until seen by Dr. Fraire Discontinued potassium chloride 10 mEq tablet extended release 10 meq PO QAM bumetanide 1 mg tablet 1 mg PO QAM Discharge Orders: Discharge Order (Routine); Ordered 07/17/24 Ordered By: Anibal Castaneda/Other Patient Handouts: High Blood Sugar (Hyperglycemia), Managing Type 2 Diabetes, How to Check Your Blood Sugar Admission Data Admit Date/Time: 07/13/24 21:00 Attending Provider: Anibal Tobin Admit Provider: Anibal Tobin Primary Care Provider: Elmer Farire Other Providers: Anibal Tobin; Tara Guillen Jr Other Interventions: Discharge Summary Assessment (RN) Last Done: 07/17/24 11:03 Hospital Stay Data Consultations 07/13/24 18:23 ED Decision to Admit Stat 07/14/24 10:15 Consult Gastroenterology Routine Diagnostic Imagining Performed 07/16/24 IR paracentesis abd w/img US Routine Pending Results Patient Have Any Pending Studies at Discharge: No Discharge Instructions Given to Patient (Per Discharging Provider) Please followup with hepatology at [facility]. Will also set you up with a capsule endoscopy. Please followup with Dr. Fraire tomorrow. Coding Diagnoses Cirrhosis of liver K74.60 Ascites presence: with ascites Abdominal ascites R18.8 DM (diabetes mellitus) E11.9 Acute kidney injury superimposed on CKD N17.9; N18.9 Anemia D64.9 Anemia type: unspecified type
== END 2024-07-17 12:48 | disposition home or self-care (01) | DRG 433 ==
LOC: SUATTDRO → ED 16:35 → 2N 21:00